=== PATIENT | male | born 1965 | race Caucasian/White ===

== ENCOUNTER 2019-04-23 05:33 | Observation (INO) | payer MEDICARE, MEDICAID, SELFPAY ==
[2019-04-23] VITALS (18 sets, daily range): BP systolic 120–148; BP diastolic 61–97; PULSE 70–122; RESP 12–30; TEMP 36.1–36.8; O2SAT 93–100; BMI 18.8
--- NOTE | ~2019-04-23 | CT_ITS ---
EXAMINATION: CTA chest abdomen pelvis DATE: 04/23/2019 07:48 CONSUMER RELATIONS SPECIALIST INDICATION: Seizure. Chest and abdomen pain. TECHNIQUE: Computed tomographic angiography (CTA) of the chest, abdomen, and pelvis was performed wit hout and with 100 mL Omnipaque-350 intravenous contrast. The dose-length product was 422.96 mGy-cm. M aximum intensity projection 3D-reconstructions of the aorta and other arteries were constructed by leidy cárdenas technologist on a separate workstation. Automated exposure control and iterative reconstruction amadeo hnique were employed. COMPARISON: CT dated 05/22/2017 FINDINGS: CHEST CTA: There is atherosclerosis of the aorta without evidence for aneurysm or dissection. No large central p ulmonary embolism. No significant pleural or pericardial effusion. Heart size normal. No thoracic lym phadenopathy. Severe emphysema. There is right upper lobe scarring. Biapical pleural thickening/scarr ing. No focal airspace consolidation. ABDOMEN AND PELVIS CTA: No evidence for aortic aneurysm or dissection. There is cirrhosis. There is splenomegaly. Status post cholecystectomy. The pancreas, adrenal glands and kidneys are unremarkable. Nonobstructive bowel gas pattern. Colonic diverticulosis without diverticulitis. Limited evaluation for renal stones due to c ontrast administration. No free air or free fluid. Bladder is unremarkable. No lymphadenopathy. No ac [place] osseous abnormality. Moderate spondylosis at L4-5. No osteolytic or osteoblastic lesions. IMPRESSION: 1. No acute abnormality of the chest, abdomen or pelvis. 2: Severe emphysema. 3: Cirrhosis with splenomegaly suggesting portal venous hypertension. Reviewed, dictated and finalized at location A. UMER RELATIONS SPECIALIST
--- NOTE | ~2019-04-23 | CT_ITS ---
EXAMINATION: CT BRAIN W/O DATE: 04/23/2019 06:04 INDICATION: Seizure TECHNIQUE: Computed tomography (CT) of the head was performed without intravenous contrast. The dose- length product was 605.33 mGy-cm. COMPARISON: CT dated 08/13/2003 FINDINGS: Normal brain parenchymal volume for age. Normal beasley-white differentiation. No acute intrac ranial hemorrhage, infarction, mass or mass effect. There are scattered mild periventricular and subc ortical white matter changes, most likely related to small vessel ischemic disease (microangiopathy). No ventriculomegaly or midline shift. Midline sagittal images demonstrate a normal corpus callosum, c raniovertebral junction and sella turcica. Basilar cisterns are patent. There is mucosal thickening of the maxillary and ethmoid sinuses. IMPRESSION: 1. No acute intracranial abnormality. 2: Moderate sinusitis. Reviewed, dictated and finalized at location A. MANUFACTURING LEADER
--- NOTE | ~2019-04-23 | XR_ITS ---
XR chest 1V portable 04/23/2019 06:07 Indication: Sudden onset of chest and abdomen pain Procedure: AP portable chest Comparison: Comparison to multiple prior studies sequentially, with oldest reviewed study dated 07/25. Findings: Heart size is normal. There is retrocardiac opacification, likely atelectasis. Right lung c lear. The lungs are hyperinflated which is consistent with, but not diagnostic of chronic obstructive pulmonary disease. No pleural effusion or pneumothorax. No acute osseous abnormality. Impression: 1: Retrocardiac opacification, likely atelectasis. Reviewed, dictated and finalized at location A. /VAULT SUPERVISOR Impression: 1: Retrocardiac opacification, likely atelectasis.
--- NOTE | 2019-04-23 05:35 | PC.NURSE ---
PT SAT UP SCREAMING. SEIZURE LIKE ACTIVITY FOR [address] COLE NOTIFIED. VRBO ATIVAN 1 MG IVP. GIVEN. AT BEDSIDE. SEIZURE PADS IN PLACE.
--- NOTE | 2019-04-23 05:42 | ECG_ITS ---
Measurements Intervals [place] Rate: 131 P: 80 NH: 144 QRS: 30 QRSD: 98 T: 69 QT: 324 QTc: 480 Interpretive Statements SINUS TACHYCARDIA PEAKED T WAVES- CONSIDER ISCHEMIA OR HYPERKALEMIA NONSPECIFIC ST & T-WAVE ABNORMALITY- INF/LAT LEADS BASELINE ARTIFACT- I, II, III, AVR, AVL, AVF, V3-V6 ABNORMAL ECG Electronically Signed On 04-23-2019 7:17:31 HYDROELECTRIC PLANT TECHNICIAN by Davidson Juarez D.O.
[2019-04-23] MEDS: LORAZEPAM INJ 2 MG/ML VIAL 1 MG IV PUSH (05:50)
[2019-04-23] MEDS: SODIUM CHLORIDE 0.9% IV 1,000 ML 999 ML IV CONT (05:50)
[2019-04-23 06:02] LABS: Glucose Point of Care 160 (65-105)
[2019-04-23] MEDS: levETIRAcetam 1000MG/NACL100ML 1,000 MG/100 ML BAG 400 MG IVPB (06:26)
[2019-04-23 06:28] LABS: Basophils Percent Auto 0.2 % (0.2-1.2); Eosinophils Percent Auto 0.2 % (0-4.4); Hematocrit 42.9 % (42.0-52.0); Hemoglobin 14.5 g/dL (14.0-18.0); Immature Granulocyte Absolute 0.13 K/mm3 (0.00-0.031); Lymphocytes Percent Auto 3.9 % (18.3-44.2); Mean Corpuscular HGB Conc 33.8 g/dl (32-36); Mean Corpuscular Hemoglobin 31.8 pg (26-34); Mean Corpuscular Volume 94.1 fl (80-100); Mean Platelet Volume 11.2 fl (7.4-10.4); Monocytes Absolute Auto 0.6 K/mm3 (0.1-0.6); Monocytes Percent Auto 4.9 % (2.6-8.5); Neutrophils Absolute Auto 11.5 K/mm3 (1.3-6.7); Neutrophils Percent Auto 89.8 % (45.5-73.1); Platelet Count Result 147 k/mm3 (150-375); Red Blood Count 4.56 M/mm3 (4.6-6.20); Red Cell Distribution Width 14.5 % (11.5-14.5); White Blood Count 12.9 K/mm3 (4.5-10.0)
[2019-04-23 06:30] LABS: Alveolar/Arterial O2 Gradient 92.1 mmHg; Base Excess ABG -1.9 mEq/l (+/-2.0); Carboxyhemoglobin 1.9 % THb (0-2.0); Fractional Inspired Oxygen 32 %; HCO3 ABG 23.6 mEq/l (22.0-26.0); Methemoglobin ABG 0.2 %THb (0-1.5); Oxygen Content ABG 18.8 %vol (16.0-22.0); Oxygen Saturation ABG 96.2 % (95.0-100.0); Oxyhemoglobin 93.3 % THb (90.0-100.0); PCO2 ABG 42.7 mmHg (35.0-45.0); PO2 ABG 86.1 mmHg (80.0-100.0); PO2 FiO2 Ratio Arterial Blood 2.69 %; Reduced Hemoglobin 4.6 %THb (0-5.0); Total Hemoglobin 14.3 g/dL (12.0-18.0)
[2019-04-23 06:31] LABS: Device NASAL CANNULA; Modified Allen's Test Pass; Site Drawn LEFT RADIAL
[2019-04-23 06:35] LABS: Add Urine Microscopic? YES; Appearance Urine Clear (Clear); Bilirubin Urine Negative (Negative); Blood Urine 2+ (Negative); Color Urine Yellow (Yellow); Glucose Urine UA 1+ mg/dL (Negative); Ketones Urine Negative (Negative); Leukocyte Esterase Ur Negative LEU/UL (Negative); Nitrate Urine Negative (Negative); Protein Urine 2+ mg/dL (Negative); RBC Urine 0-2 /hpf (0-2); Specific Grav Ur 1.018 (1.001-1.035); Squamous Epithelial Cell Urine Rare /hpf (Few); Urobilinogen Urine Negative mg/dL (<2.0); WBC Urine 0-3 /hpf
[2019-04-23 06:38] LABS: Ethanol < 10 mg/dL (<10); INR 1.1; Partial Thromboplastin Time 29.7 SECONDS (22.3-36.8)
[2019-04-23 06:38] LABS: Ammonia < 9 umol/L (9-30)
[2019-04-23 06:41] LABS: Lactic Acid Reflex 7.2 mmol/L (0.7-2.1)
[2019-04-23 06:46] LABS: Amphetamine Screen Urine Negative (Negative); Barbiturate Screen Urine Negative (Negative); Benzodiazepines Screen Urine Negative (Negative); Cannabinoid Screen Urine Positive (Negative); Cocaine Screen Urine Negative (Negative); Methadone Screen Urine Negative (Negative); Opiate Screen Urine Negative (Negative); Phencyclidine Screen Urine Negative (Negative)
--- NOTE | 2019-04-23 06:48 | ED.SEIZURE ---
HPI - Seizure General Chief Complaint: Seizure Stated Complaint: Seizure Time Seen by Provider: 04/23/19 05:58 Source: family and EMS Mode of arrival: EMS Limitations: clinical condition History of Present Illness HPI Narrative: 53 yo male with h/o hepatitis B, liver Cancer who presents from home via EMS for evaluation of seizure. His states patient woke up screaming and he held his upper abdomen/chest, and he then fell back into bed and had a seizure. On arrival to ER, patient was witnessed to have had tonic clonic seizure lasting 30 seconds. Patient was given ativan 1 mg after the second seizure. His denies previous history of seizure. She states patient has chronic abdominal pain due to his liver issues. She also states for the past month he has been dealing with flu/cold symptoms. He receives treatment for his liver at [facility] with Dr. Mckinley. complaint: seizure Onset (ago): minute(s) Description of Episode: tonic-clonic movement and post-event confusion Duration of episode: 30 -: second(s) Witnessed: Yes - by Bystander Related Data Home Medications Medication Instructions Recorded Confirmed albuterol sulfate [ProAir HFA] 2 puff INHALATION Q6H PRN 04/23/19 04/23/19 bupropion HCl 100 mg PO Q12H 04/23/19 04/23/19 gabapentin 800 mg PO QID 04/23/19 04/23/19 oxycodone 20 mg PO 4-6XD 04/23/19 04/23/19 prednisone 10 mg PO DAILY 04/23/19 04/23/19 tamsulosin 0.4 mg PO DAILY 04/23/19 04/23/19 tenofovir disoproxil fumarate 300 mg PO DAILY 04/23/19 04/23/19 Allergies Allergy/AdvReac Type Severity Reaction Status Date / Time ciprofloxacin Allergy Unknown Unknown Verified 04/23/19 10:44 fentanyl Allergy Unknown Nausea And Verified 04/23/19 07:16 Vomiting hornet venom Allergy Unknown Unknown Verified 04/23/19 07:16 metronidazole Allergy Unknown Nausea And Verified 04/23/19 07:16 Vomiting strawberry Allergy Unknown Unknown Verified 04/23/19 11:00 Review of Systems Review of Systems: ROS unobtainable: unobtainable due to mental status PMFSH Past Medical History Medical History (Updated 04/23/19 @ 09:44 by Roberto Hunt MD) Chronic pain syndrome Cirrhosis COPD (chronic obstructive pulmonary disease) GERD (gastroesophageal reflux disease) Hepatocellular carcinoma History of hepatitis B Hx of peptic ulcer as a child Seizure Surgical History Surgical History (Updated 04/23/19 @ 09:42 by Roberto Hunt MD) History of cholecystectomy History of tibial fracture requiring surgical repair. Social History Social History (Updated 04/23/19 @ 09:37 by Roberto Hunt MD) Social History: Smokes 1/2 ppd since 17yo. He is trying to quit. Lives at home with his and children. He is a full code. Smoking packs per day: 0.5 Smoking cigarettes per day: 10.0 Years smoked: 36 Smoking pack-years: 18.00 Smoking status: Current every day smoker Tobacco type: cigarettes Second hand tobacco smoke exposure: Yes Smoking end date: 03/01/13 Alcohol intake: former Substance use: current Substance use type: marijuana, crack/cocaine and methamphetamine Other substance usage details: has not had alcohol in 16 years/ was never a heavy drinker per Last use: no meth/cocaine in 16 years/uses marijuana currently for pain/appetite Spiritual care concerns: No Agree to blood products: Yes Exam Const: General: alert and ill appearing Nutritional Appearance: thin (cachetic) HENMT: Head: normocephalic and atraumatic Teeth and gingiva: edentulous Throat: posterior oropharynx normal Eyes: Conjunctivae: conjunctivae normal Pupils: Equal, round and reactive pupils present Neck: Neck: normal visual inspection Chest: Chest palpation & inspection: normal inspection of the chest Resp: Effort & Inspection: tachypneic Auscultation: wheezes and diminished lung sounds Cardio: Rate: tachycardic Rhythm: regular rhythm Heart sounds: no murmurs GI:
[2019-04-23 06:54] LABS: Troponin I < 0.012 ng/mL (0.000-0.034)
[2019-04-23 06:55] LABS: Alanine Aminotransferase 29 U/L (4-50); Albumin Level 4.8 g/dL (3.5-5.1); Alkaline Phosphatase 106 U/L (38-126); Aspartate Amino Transferase 32 U/L (17-59); Bilirubin,Total 0.6 mg/dL (0.2-1.3); Blood Urea Nitrogen 10 mg/dL (9-20); Calcium 9.6 mg/dL (8.4-10.2); Carbon Dioxide 20 mmol/L (22-30); Chloride 101 mmol/L (98-107); Creatine Kinase 129 U/L (55-170); Estimated Glomerular Filt Rate > 60; Glucose 161 mg/dL (75-110); Lipase 27 U/L (23-300); Magnesium 2.9 mg/dL (1.6-2.3); Potassium 3.5 mmol/L (3.4-5.0); Sodium 141 mmol/L (137-145)
[2019-04-23] MEDS: LACTATED RINGERS 1,000 ML 999 ML IV CONT (07:14)
--- NOTE | 2019-04-23 08:09 | PC.NURSE ---
Patient taken off oxygen and noted to be 93-95% at this time.
[2019-04-23] MEDS: ONDANSETRON INJ 4 MG/2 ML VIAL IV PUSH ×2 (08:11→12:42)
[2019-04-23] MEDS: ALBUTEROL SULFATE NEB 2.5 MG/0.5 ML INH 5 MG INHALATION (08:32)
[2019-04-23] MEDS: IPRATROPIUM BR 0.02% INH SOLN 0.5 MG/2.5 ML VIAL INHALATION (08:32)
--- NOTE | 2019-04-23 08:41 | PM.IMHP ---
H&P: HPI History of Present Illness Chief complaint: Seizure Narrative: Ronan Baez is a 53 year old male with HCC and Cirrhosis here for new onset seizures. Patient was evaluated emergency room. Patient is somnolent and has difficulty providing history. History is supplemented by the chart and by the patient's who is in the room . Patient was diagnosed with bronchitis about 3 weeks ago and started on 10 day course of Augmentin which he has completed. He was also started on prednisone and is finishing a prednisone taper. About 1 week ago, he was started on bupropion for assistance in tobacco cessation. Patient chronically takes oxycodone 20 mg 6x a day but this was decreased to 5 times a day on April 01. Patient ran out of his oxycodone 1-2 days prior to this admission. Patient was sleeping in another room but around 5:00 a.m. this morning, he walked in to his 's room and fell on the bed. She pulled him up into the bed at which point he sat up at the side of the bed, grab his chest and fell back on the bed with his body twitching and his eyes rolling back in his head. He became stiff with symptoms lasting less than minute. He did have urine incontinence. There is no tongue biting. He is edentulous however. He has no history of seizures. No family history of seizures. His last alcoholic drink was 16 years ago. He does smoke marijuana. He has a history of drug use but nothing recent. Patient was brought to the emergency room for evaluation. Lab values were within normal limits except for a lactic acid of 7.4, anion gap 20, white count of 12.9 and glucose 160. Urine drug screen is positive for cannabis. He did have a seizure in the emergency room. He was given a dose of Keppra and lorazepam. Started on IV fluids. Nebulizer treatment given. He also received Zofran. He is to be admitted for further care. Patient has been feeling hot and cold over the past 2 days. Also been antsy and having anxiety. He has also been episodes of nausea and vomiting last night. Patient denies any chest pain shortness of breath or abdominal pain. He does have a cough related to his recent bronchitis. Unclear if this has improved. 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 Patient is stage IV. He is had 2 rounds of chemotherapy. His last round of chemotherapy ended in October 2018. He also underwent microwave procedure in November 2018. He is currently being evaluated for liver transplant. Review of Systems Review of Systems: All systems reviewed & are unremarkable except as noted in HPI and below PMFSH Past Medical History Medical History (Updated 04/24/19 @ 07:24 by Roberto Hunt MD) Chronic pain syndrome Cirrhosis COPD (chronic obstructive pulmonary disease) GERD (gastroesophageal reflux disease) Hepatocellular carcinoma History of hepatitis B Hx of peptic ulcer as a child Seizure Surgical History Surgical History (Updated 04/23/19 @ 09:42 by Roberto Hunt MD) History of cholecystectomy History of tibial fracture requiring surgical repair. Social History Social History (Updated 04/23/19 @ 09:37 by Roberto uHnt MD) Social History: Smokes 1/2 ppd since 17yo. He is trying to quit. Lives at home with his and children. He is a full code. Smoking packs per day: 0.5 Smoking cigarettes per day: 10.0 Years smoked: 36 Smoking pack-years: 18.00 Smoking status: Current every day smoker Tobacco type: cigarettes Second hand tobacco smoke exposure: Yes Smoking end date: 03/01/13 Alcohol intake: former Substance use: current Substance use type: marijuana, crack/cocaine and methamphetamine Other substance usage details: has not had alcohol in 16 years/ was never a heavy drinker per Last use: no meth/cocaine in 16 years/uses marijuana currently for pain/appetite Spiritual care concerns: No Agree to blood products
[2019-04-23 09:24] LABS: Reflex Lactic Acid Yes or No Add Lactic
--- NOTE | 2019-04-23 09:37 | ADMGEN ---
This patient, Ronan Baez, was admitted to -. Patient/family oriented to hospital policies and general routines including ID bracelet, bed and alarms, visiting hours, pain management, procedures, bathroom and other care routines, personal items, smoking policy, room service/diet, and visiting hours. Valuables list has been completed. Information on how to activate the Rapid Response Team has been discussed. Patient/Family are encouraged to report perceived risks to care and to ask questions if they do not understand what they are told or what they should do.
[2019-04-23 10:20] LABS: Lactic Acid 0.7 mmol/L (0.7-2.1)
[2019-04-23] MEDS: MORPHINE SULFATE 2 MG/ML INJ 1 MG IV PUSH (13:18)
--- NOTE | 2019-04-23 15:59 | CONS_ITS ---
DATE OF CONSULTATION: HISTORY: This 53 years old right-handed male has been admitted to [facility] through the emergency room for the complaints of the seizure. He was initially evaluated in the emergency room where he was notedly somnolent and had difficulties in providing the history. Further information was obtained from the chart. The patient carries the diagnoses of 1. Cirrhosis of the liver. 2. COPD. 3. GERD. 4. Hepatocellular carcinoma. 5. Hepatitis B. 6. Peptic ulcer disease as a child. 7. Chronic pain syndrome. Reportedly, he was diagnosed with bronchitis about 3 weeks ago and started on 10-day course of Augmentin, which he completed and at present, he has finished his prednisone and finishing the prednisone tapering. About a week ago, he was started on bupropion for the tobacco cessation, though chronically, he takes oxycodone 20 mg x6 per day, which was recently decreased to 5 times a day on April 01. He ran out of his oxycodone 1 to 2 days prior to admission and was sleeping in another room, but around 5:00 a.m. in the morning, he walked to his 's room and fell on the bed. She pulled him up to the bed at that time, he set up at the side of bed, grabbed his chest and fell backward on the bed with body twitching and his eyes rolling back in his head, became stiff, the whole episode lasted for less than a minute, became incontinent of urine, there was no tongue biting, but he had no history of seizures in the past. His last alcoholic drink was 16 years ago. He does smoke marijuana and has a history of drug use, but nothing recent. In the emergency room, his lactic acid was 7.4 with anion gap of 20, white count of 12.9, and glucose 160. Urine positive for cannabis. He did have a seizure in the emergency room as well when he was given Keppra and lorazepam and started on intravenous fluid. He also received nebulizing treatments, Zofran, and was admitted for the further care. The patient has been having nausea, anxiety intermittently, his hepatitis B is at present dormant, hepatocellular carcinoma, cirrhosis being treated. He had 2 rounds of chemotherapy, last 1 in October of 2018. He has also undergone microwave procedure in November 2018, and currently is being evaluated for the liver transplant. MEDICAL HISTORY: As mentioned above, he has multiple problem, particularly chronic pain syndrome, cirrhosis, COPD, GERD, hepatocellular carcinoma, hepatitis B, peptic ulcer as a child, and seizure now in addition to a history of cholecystectomy and tibial fracture requiring surgical repair. FAMILY HISTORY: Positive for the stroke, hypertension, and coronary artery disease. The patient himself smokes half a pack of cigarettes per since 17 years of age, though he is trying to quit. He lives at home with his and children and carries the full code status. MEDICATIONS: At the time of admission to the hospital, he was taking 1. Bupropion. 2. Gabapentin. 3. Oxycodone. 4. Prednisone. 5. Tamsulosin. 6. Tenofovir disoproxil fumarate. ALLERGIES: HE IS REPORTEDLY ALLERGIC TO CIPRO, FENTANYL, HORNET VENOM, AND METRONIDAZOLE. PHYSICAL EXAMINATION: VITAL SIGNS: Evaluation documented him to be afebrile, pulse 97, respiration 20, blood pressure 141/86, and pulse ox 96. HEENT: Head normocephalic with no cranial bruit. Ear, nose, throat examination, normal. NECK: Supple with no cervical bruit. No thyromegaly. No lymphadenopathy. Extremely sick looking and cachetic. LUNGS: Clear to auscultation. ABDOMEN: Soft. Normal bowel sound. NEUROLOGICAL: He is awake, alert. Pupils round and regular. Ortiz of vision full. Extraocular movements full. Face symmetrical. Tongue midline. Motor examination revealed him to have sluggish reflexes. Downgoing plantar res
[2019-04-23] MEDS: GABAPENTIN 400 MG CAPSULE 800 MG PO ×2 (17:55→21:25)
[2019-04-23] MEDS: predniSONE 10 MG TABLET PO (17:55)
--- NOTE | 2019-04-23 18:49 | PC.NURSE ---
Called patient's Heather to request that she bring in Tenofovir from home. She states she will pick it up at their pharmacy and bring it in to the hospital tomorrow.
[2019-04-23] MEDS: levETIRAcetam 500MG/NACL 100ML 500 MG/100 ML BAG 400 MG IVPB (21:25)
[2019-04-24] VITALS (8 sets, daily range): BP systolic 134–154; BP diastolic 60–81; PULSE 75–99; RESP 16–24; TEMP 36.7–37; O2SAT 91–93; BMI 18.6
[2019-04-24] MEDS: ONDANSETRON INJ 4 MG/2 ML VIAL IV PUSH (07:39)
[2019-04-24] MEDS: ALBUTEROL SULFATE NEB 2.5 MG/0.5 ML INH 5 MG INHALATION (07:56)
[2019-04-24] MEDS: GABAPENTIN 400 MG CAPSULE 800 MG PO (08:07)
[2019-04-24] MEDS: levETIRAcetam 500MG/NACL 100ML 500 MG/100 ML BAG 400 MG IVPB (08:08)
[2019-04-24] MEDS: predniSONE 10 MG TABLET PO (09:24)
--- NOTE | 2019-04-24 09:30 | WPDNEUROPN ---
Progress Note: A&P Assessment and Plan (1) Narcotic withdrawal epilepsy: Code(s): F11.23 - Opioid dependence with withdrawal; G40.909 - Epilepsy, unspecified, not intractable, without status epilepticus Status: Acute (2) Chronic pain syndrome: Code(s): G89.4 - Chronic pain syndrome Status: Acute (3) History of hepatitis B: Code(s): Z86.19 - Personal history of other infectious and parasitic diseases Status: Acute (4) Seizure: Code(s): R56.9 - Unspecified convulsions Status: Acute (5) Hepatocellular carcinoma: Code(s): C22.0 - Liver cell carcinoma Status: Acute (6) COPD (chronic obstructive pulmonary disease): Code(s): J44.9 - Chronic obstructive pulmonary disease, unspecified Status: Acute (7) Cirrhosis: Code(s): K74.60 - Unspecified cirrhosis of liver Status: Acute Additional Plan stable Review of Systems Review of Systems: All systems reviewed & are unremarkable except as noted in HPI and below Exam Const: General: cooperative and no acute distress Neck: Neck: full ROM Resp: Effort & Inspection: able to speak in complete sentences Auscultation: clear to auscultation bilaterally Cardio: Rate: regular rate Rhythm: regular rhythm Neuro: General: oriented to person and patient oriented x3 Cranial nerves: Yes Equal, round and reactive pupils present Gait exam (Neuro): Normal gait present Psych: Appearance: grossly normal Objective Data Vital Signs Vital Signs: Vital Signs - 24 hr 04/23/19 09:54 04/23/19 12:00 04/23/19 14:00 Temperature 36.3 C L 36.1 C L Pulse Rate 87 82 83 Respiratory Rate 26 H 18 Blood Pressure 120/61 136/64 Pulse Oximetry 95 97 04/23/19 16:00 04/23/19 18:00 04/23/19 20:00 Temperature 36.2 C L Pulse Rate 84 70 82 Respiratory Rate 12 Blood Pressure 133/77 Pulse Oximetry 95 04/23/19 21:51 04/24/19 00:00 04/24/19 01:51 Temperature 36.4 C L 36.7 C Pulse Rate 84 75 81 Respiratory Rate 18 16 Blood Pressure 128/64 144/81 H Pulse Oximetry 93 93 04/24/19 04:00 04/24/19 05:59 04/24/19 08:00 Temperature 36.7 C Pulse Rate 94 90 99 Respiratory Rate 20 24 H Blood Pressure 154/60 H Pulse Oximetry 92 04/24/19 08:04 04/24/19 08:07 Temperature Pulse Rate 99 Respiratory Rate 24 H Blood Pressure Pulse Oximetry 91 Intake/Output Intake/Output: Intake & Output 04/21/19 04/22/19 04/23/19 04/24/19 23:59 23:59 23:59 23:59 Intake Total 2440 450 Output Total 800 700 Balance 1640 -250 Meds/Results Medications: Active Medications Generic Name Dose Route Start Last Admin Trade Name Freq PRN Reason Stop Dose Admin Albuterol 5 mg 04/23/19 09:54 04/24/19 07:56 Albuterol Sulf Neb 2.5mg/0.5ml INHALATION 5 mg Q6HRT PRN Administration Shortness Of Breath Albuterol 2 puff 04/23/19 16:03 Proventil Hfa INHALATION Q6H PRN Dyspnea Gabapentin 800 mg 04/23/19 17:00 04/24/19 08:07 Neurontin PO 800 mg QID JOEL Administration Levetiracetam 500 mg in 100 mls @ 400 mls/hr 04/23/19 21:00 04/24/19 08:23 Keppra Iv IVPB Infused Q12HR JOEL Infusion Non-Formulary Medication 300 mg 04/24/19 09:00 Tenofovir Disoproxil Fumarate PO 05/24/19 09:01 DAILY [facility] Ondansetron HCl 4 mg 04/23/19 08:42 04/24/19 07:39 Zofran Inj IV PUSH 4 mg Q4H PRN Administration Nausea Oxycodone HCl 20 mg 04/23/19 17:00 04/24/19 08:07 Roxicodone Ir Tablet PO 20 mg QID [facility] Administration Prednisone 10 mg 04/23/19 16:10 04/24/19 09:24 Prednisone PO 10 mg DAILY [facility] Administration Tamsulosin HCl 0.4 mg 04/24/19 16:10 Flomax PO DAILY [facility] Radiology Results: ITS Impressions Chest X-Ray 04/23/19 07:45 Impression: 1: Retrocardiac opacification, likely atelectasis. Chest/Abdomen/Pelvis CTA 04/23/19 07:48 IMPRESSION: 1. No acute abnormality of the chest, abdo
--- NOTE | 2019-04-24 11:00 | PHAR ---
The patient's home med of Tenofovir Disoproxil Fumarate 300 MG has been verified.
--- NOTE | 2019-04-24 13:03 | PM.DS ---
DS: Diagnosis Admitting Diagnosis Admitting Diagnosis: Opioid dependence with withdrawal Discharge Diagnosis (1) Narcotic withdrawal epilepsy: Code(s): F11.23 - Opioid dependence with withdrawal; G40.909 - Epilepsy, unspecified, not intractable, without status epilepticus Status: Acute (2) Seizure: Code(s): R56.9 - Unspecified convulsions Status: Acute (3) Hepatocellular carcinoma: Code(s): C22.0 - Liver cell carcinoma Status: Acute (4) COPD (chronic obstructive pulmonary disease): Code(s): J44.9 - Chronic obstructive pulmonary disease, unspecified Status: Acute (5) Cirrhosis: Code(s): K74.60 - Unspecified cirrhosis of liver Status: Acute (6) History of hepatitis B: Code(s): Z86.19 - Personal history of other infectious and parasitic diseases Status: Acute (7) Chronic pain syndrome: Code(s): G89.4 - Chronic pain syndrome Status: Acute DS: Summary Hospital Course Reason for hospitalization: 53yo male here for new onset seizures. Pleae see H&P for details. Hospital Course: Patient has seizure at home. He was brought to the emergency room for evaluation. Lab values were within normal limits except for a lactic acid of 7.4, anion gap 20, white count of 12.9 and glucose 160. Urine drug screen is positive for cannabis. He did have a seizure in the emergency room. He was given a dose of Keppra and lorazepam. Started on IV fluids. Nebulizer treatment given. He also received Zofran. Patient was admitted to medical floor. Seizure precautions started. Patient most likely is having some opiate withdrawal symptoms so we resumed his oxycodone. Neurology consulted. Continued Keppra. Unable to get EEG and neurology did not feel this was necessary. Patient refused brain MRI. We resumed a majority of his home medications. Lab values show the patient's liver disease is well compensated with good synthetic function. No evidence of fluid overload. He overall did well and was discharged home on 04/24/19 Status at Discharge Functional status at discharge: independent ambulation Overall status at discharge: patient is back to baseline Time Spent with Patient Time attestation: Total time spent providing and/or coordinating discharge services:35 minutes Time spent: Greater than 30 minutes Specific discharge activities: Discussed with neurology and patient with family present (with his permission) Exam Narrative: Exam Narrative: Gen - NARD sitting up in chair Chest - CTA bilat, nml RR CV - RRR S1/S2 Abd - soft, NT,ND, +BS Ext - No pedal edema Neuro - awake and alert, nonfocal Psych - nml mood and affect Skin - Warm and dry Discharge Plan Discharge Attending physician on discharge: Roberto Hunt Consulting providers: Randal Esteves Discharging Clinician: Roberto Hunt Anticipated Discharge Date/Time: 04/24/19 13:08 Patient Disposition: Home, Self-Care Activity: no driving Diet: regular Discharge Instructions: NO DRIVING - until seen by your doctor. Patient Instructions: How to Stop Smoking (DC), New-Onset Seizure in Adults (DC), Antibiotic Form Stand Alone Forms: General Discharge Information Follow-up/Referrals: Randal Esteves MD [Physician] - 2 Weeks Shankar,Jazmin Turpin MD [Primary Care Provider] - 1 Week Discharge Medications: Continued prednisone 10 mg tablet 10 mg PO DAILY RF: 0 tamsulosin 0.4 mg capsule 0.4 mg PO DAILY RF: 0 gabapentin 800 mg tablet 800 mg PO QID RF: 0 tenofovir disoproxil fumarate 300 mg tablet 300 mg PO DAILY RF: 0 albuterol sulfate [ProAir HFA] 90 mcg/actuation HFA aerosol inhaler 2 puff INHALATION Q6H PRN (Reason: Dyspnea) RF: 0 Changed oxycodone 20 mg tablet 20 mg PO Q6H Qty: 40 RF: 0 Discontinued bupropion HCl 100 mg tablet sustained-release 12 hr 100 mg PO Q12H RF: 0 Date of admission: 04/23/19 08:42 Primary Care Pro
== END 2019-04-24 13:40 | disposition home or self-care (01) ==
LOC: ANHED 09:32 → ANH2MED 09:37
PROVIDERS: Emergency Medicine; Admitting Provider Internal Medicine; Emergency Provider General Practice; PCP Family Medicine; Visit Provider Internal Medicine
DX: F11.23 Opioid dependence with withdrawal (principal); G40.509 Epileptic seizures related to external causes, not intractable, without status epilepticus; T40.2X5A Adverse effect of other opioids, initial encounter; C22.0 Liver cell carcinoma; J43.9 Emphysema, unspecified; G89.4 Chronic pain syndrome; K21.9 Gastro-esophageal reflux disease without esophagitis; F17.210 Nicotine dependence, cigarettes, uncomplicated; K74.60 Unspecified cirrhosis of liver; Z79.899 Other long term (current) drug therapy; Z86.19 Personal history of other infectious and parasitic diseases; Z87.11 Personal history of peptic ulcer disease
CPT/HCPCS: 36415; 36600; 70450; 71045; 71275; 74174; 80053; 80307; 81001; 82140; 82375; 82550; 82805; 82948; 83050; 83605; 83690; 83735; 84484; 85025; 85610; 85730; 93005; 94640; 96361; 96365; 96375; 96376; 99285; A9270; G0378; J1953; J2060; J2270; J2405; J2785; J7030; J7120; J7512; Q9967

== ENCOUNTER 2020-01-17 06:29 | Emergency (ER) | payer MEDICARE, MEDICAID, SELFPAY ==
--- NOTE | ~2020-01-17 | CT_ITS ---
EXAMINATION: CT brain wo con DATE: 01/17/2020 07:46 INDICATION: Seizure. TECHNIQUE: Computed tomography (CT) of the head was performed without intravenous contrast. The mA wa s adjusted according to patient size. Iterative reconstruction technique was employed. The dose-lengt h product was 605.33 mGy-cm. COMPARISON: Head CT 04/23/2019 FINDINGS: There are scattered areas of low attenuation in the cerebral white matter. There is no intr acranial hemorrhage, acute infarction, or abnormal intracranial mass lesion. The ventricles are meka l in size. There is mild mucosal thickening in the ethmoid sinuses. The mastoid air cells are normal. The orbits are normal. IMPRESSION: 1. Stable mild nonspecific cerebral white matter disease, which likely represents chronic small vesse l ischemic disease. Reviewed, dictated and finalized at location A. GER WOUND IMPRESSION: 1. Stable mild nonspecific cerebral white matter disease, which likely represen ts chronic small vessel ischemic disease.
--- NOTE | ~2020-01-17 | XR_ITS ---
EXAMINATION: XR chest 2V DATE: 01/17/2020 07:56 INDICATION: Seizure. TECHNIQUE: Frontal and lateral views of the chest were obtained. COMPARISON: Chest single view 04/23/2019, chest CT 04/23/2019 FINDINGS: The lungs are hyperexpanded with lucencies in the upper lungs, consistent with emphysema. A gain seen is mild scarring in right upper lobe. No pleural effusion or pneumothorax. The heart size i s normal. IMPRESSION: 1. Emphysema. Reviewed, dictated and finalized at location A. OYEE REPRESENTATIVE IMPRESSION: 1. Emphysema.
[2020-01-17 06:29] VITALS: BP 115/67; PULSE 103; RESP 18; TEMP 36.6; O2SAT 99
--- NOTE | 2020-01-17 06:38 | ECG_ITS ---
Measurements Intervals [place] Rate: 91 P: [place]: 0 QRS: 28 QRSD: 104 T: 47 QT: 362 QTc: 447 Interpretive Statements SINUS RHYTHM BASELINE WANDER- V3-V6 NORMAL ECG Electronically Signed On 01-17-2020 8:46:10 POISER BALANCE by Davidson Juarez D.O.
[2020-01-17 06:50] LABS: Glucose Point of Care 135 (65-105)
[2020-01-17] MEDS: SODIUM CHLORIDE 0.9% IV 1,000 ML 999 ML IV CONT (06:55)
[2020-01-17 07:00] VITALS: BP 112/66; PULSE 94; RESP 27; O2SAT 100
[2020-01-17 07:02] LABS: Basophils Percent Auto 0.4 % (0.2-1.2); Eosinophils Absolute Auto 0.1 K/mm3 (0-0.3); Eosinophils Percent Auto 1.5 % (0-4.4); Hemoglobin 13.8 g/dL (14.0-18.0); Immature Granulocyte Absolute 0.03 K/mm3 (0.00-0.031); Immature Granulocyte Percent A 0.3 % (0-0.5); Lymphocytes Absolute Auto 1.87 K/mm3 (0.9-3.2); Lymphocytes Percent Auto 19.8 % (18.3-44.2); Mean Corpuscular HGB Conc 33.7 g/dl (32-36); Mean Corpuscular Hemoglobin 31.2 pg (26-34); Mean Corpuscular Volume 92.8 fl (80-100); Mean Platelet Volume 12.9 fl (7.4-10.4); Monocytes Absolute Auto 0.7 K/mm3 (0.1-0.6); Monocytes Percent Auto 7.1 % (2.6-8.5); Neutrophils Absolute Auto 6.7 K/mm3 (1.3-6.7); Neutrophils Percent Auto 70.9 % (45.5-73.1); Platelet Count Result 108 k/mm3 (150-375); Red Blood Count 4.42 M/mm3 (4.6-6.20); Red Cell Distribution Width 14.7 % (11.5-14.5); White Blood Count 9.4 K/mm3 (4.5-10.0)
[2020-01-17 07:15] LABS: Prothrombin Time 14.2 Seconds (11.1-14.7)
[2020-01-17 07:17] LABS: Partial Thromboplastin Time 25.2 SECONDS (22.3-36.8)
[2020-01-17 07:22] LABS: Lactic Acid Reflex 5.2 mmol/L (0.7-2.1)
[2020-01-17 07:30] VITALS: BP 135/76; PULSE 90; RESP 22; O2SAT 100
[2020-01-17 07:57] LABS: Add Urine Microscopic? YES; Appearance Urine Cloudy (Clear); Bacteria Urine Trace /hpf; Bilirubin Urine Negative (Negative); Blood Urine Negative (Negative); Color Urine Yellow (Yellow); Glucose Urine UA Negative (Negative); Hyaline Casts Urine 50+ /lpf; Ketones Urine Negative (Negative); Leukocyte Esterase Ur Negative LEU/UL (Negative); Mucus Urine Rare /lpf; Nitrate Urine Negative (Negative); Protein Urine 2+ mg/dL (Negative); Specific Grav Ur 1.019 (1.001-1.035); Squamous Epithelial Cell Urine Occasional /hpf (Few); Transitional Epi Cells Urine Rare /hpf (None Seen); Urobilinogen Urine Negative mg/dL (<2.0)
[2020-01-17 08:08] LABS: Ammonia 10 umol/L (9-30)
[2020-01-17 08:09] LABS: Ethanol < 10 mg/dL (<10)
[2020-01-17 08:11] LABS: Alanine Aminotransferase 32 U/L (4-50); Albumin Level 4.1 g/dL (3.5-5.1); Alkaline Phosphatase 113 U/L (38-126); Anion Gap 11 mmol/L (8-16); Aspartate Amino Transferase 39 U/L (17-59); Bilirubin,Total 0.7 mg/dL (0.2-1.3); Blood Urea Nitrogen 14 mg/dL (9-20); CRP < 0.5 mg/dL (<1.0); Calcium 9.4 mg/dL (8.4-10.2); Carbon Dioxide 20 mmol/L (22-30); Chloride 108 mmol/L (98-107); Estimated CRCL calculation 64 ml/min; Estimated Glomerular Filt Rate > 60; Glucose 140 mg/dL (75-110); Potassium 3.7 mmol/L (3.4-5.0); Sodium 139 mmol/L (137-145)
[2020-01-17 08:21] LABS: Troponin I < 0.012 ng/mL (0.000-0.034)
[2020-01-17 08:24] LABS: Alveolar/Arterial O2 Gradient 39.9 mmHg; Base Excess ABG -1.6 mEq/l (+/-2.0); Device ROOM AIR; Fractional Inspired Oxygen 21 %; HCO3 ABG 23.1 mEq/l (22.0-26.0); Modified Allen's Test Pass; Oxygen Content ABG 16.6 %vol (16.0-22.0); Oxygen Saturation ABG 92.3 % (95.0-100.0); Oxyhemoglobin 88.8 % THb (90.0-100.0); PCO2 ABG 38.6 mmHg (35.0-45.0); PO2 ABG 63.6 mmHg (80.0-100.0); PO2 FiO2 Ratio Arterial Blood 3.03 %; Site Drawn LEFT RADIAL; Total Hemoglobin 13.3 g/dL (12.0-18.0); pH ABG 7.394 (7.350-7.450)
[2020-01-17 09:07] LABS: Barbiturate Screen Urine Negative (Negative); Benzodiazepines Screen Urine Negative (Negative)
[2020-01-17 09:10] LABS: Cannabinoid Screen Urine Positive (Negative); Cocaine Screen Urine Negative (Negative); Methadone Screen Urine Negative (Negative); Opiate Screen Urine Positive (Negative); Phencyclidine Screen Urine Negative (Negative)
[2020-01-17 09:26] LABS: Amphetamine Screen Urine Positive (Negative)
--- NOTE | 2020-01-17 09:45 | ED.SEIZURE ---
HPI - Seizure General Chief Complaint: Seizure Stated Complaint: altered mental status Time Seen by Provider: 01/17/20 07:03 Source: RN notes reviewed History of Present Illness HPI Narrative: Patient presents emergency department from home via EMS for possible seizure. The patient has history is per the patient as well as the patient's is present. The patient was sitting at home in a chair when he became stiff for approximately 30 minutes and then following this became very sleepy when EMS was initially called it was for an unresponsive patient when they arrived they found the patient snoring in his chair and was awoken easily with verbal stimuli but was confused. Currently the patient is awake and alert x2 he is able to give some history but does not call the event. Patient does have a similar episode in April of this year per family patient denies any fevers or chills chest pain shortness of breath abdominal pain nausea vomiting or any other symptoms. States he is on the hepatobiliary service at [facility] secondary to hepatocellular carcinoma and hepatitis B Seizure History: Yes (new onset 04/2019) Related Data Home Medications Medication Instructions Recorded Confirmed albuterol sulfate 01/17/20 albuterol sulfate INHALATION 01/17/20 gabapentin 01/17/20 omeprazole 01/17/20 tamsulosin mg PO 01/17/20 tenofovir disoproxil fumarate 01/17/20 Allergies Allergy/AdvReac Type Severity Reaction Status Date / Time ciprofloxacin Allergy Unknown Unknown Verified 01/17/20 09:21 fentanyl Allergy Unknown Nausea And Verified 01/17/20 09:21 Vomiting hornet venom Allergy Unknown Unknown Verified 01/17/20 09:21 metronidazole Allergy Unknown Nausea And Verified 01/17/20 09:21 Vomiting strawberry Allergy Unknown Unknown Verified 01/17/20 09:21 Review of Systems Review of Systems: Narrative: Gen.: Denies fevers or chills Eyes: Denies eye pain or visual change ENT: Denies congestion Respiratory: Denies shortness of breath or cough CV: Denies chest pain or palpitations GI: Denies abdominal pain nausea, emesis or diarrhea denies burning, urgency, frequency or hematuria Musculoskeletal: Denies back pain or muscle pain Neuro: See HPI Skin: Denies rash Except as documented, all other systems reviewed and negative PMFSH Past Medical History Medical History Chronic pain syndrome Cirrhosis COPD (chronic obstructive pulmonary disease) GERD (gastroesophageal reflux disease) Hepatocellular carcinoma History of hepatitis B Hx of peptic ulcer as a child Seizure Surgical History Surgical History (Updated 04/23/19 @ 09:42 by Roberto Hunt MD) History of cholecystectomy History of tibial fracture requiring surgical repair. Family History Family History Father Hypertension Cerebrovascular accident Family history of coronary artery disease Sibling Hypertension Social History Social History Social History: Smokes 1/2 ppd since 17yo. He is trying to quit. Lives at home with his and children. He is a full code. Smoking packs per day: 0.5 Smoking cigarettes per day: 10.0 Years smoked: 36 Smoking pack-years: 18.00 Smoking status: Current every day smoker Tobacco type: cigarettes Second hand tobacco smoke exposure: Yes Smoking end date: 03/01/13 Alcohol intake: former Substance use: current Substance use type: marijuana, crack/cocaine and methamphetamine Other substance usage details: has not had alcohol in 16 years/ was never a heavy drinker per Last use: no meth/cocaine in 16 years/uses marijuana currently for pain/appetite Gender identity (if verbalized by the patient): Male Spiritual care concerns: No Agree to blood products: Yes Exam Narrative: Exam Narrative: APPEARANCE:
[2020-01-17 09:59] LABS: Reflex Lactic Acid Yes or No Add Lactic
[2020-01-17] MEDS: levETIRAcetam 500 MG TABLET PO (10:12)
[2020-01-17 10:20] VITALS: BP 130/82; PULSE 83; RESP 24; O2SAT 98
[2020-01-17 10:29] LABS: Lactic Acid 0.8 mmol/L (0.7-2.1)
== END 2020-01-17 10:20 | disposition home or self-care (01) ==
PROVIDERS: Emergency Medicine; Emergency Provider Emergency Medicine; PCP Family Medicine
DX: G40.909 Epilepsy, unspecified, not intractable, without status epilepticus (principal); F17.210 Nicotine dependence, cigarettes, uncomplicated; J44.9 Chronic obstructive pulmonary disease, unspecified; K21.9 Gastro-esophageal reflux disease without esophagitis
CPT/HCPCS: 36415; 36600; 70450; 71046; 80053; 80307; 81001; 82140; 82805; 82948; 83605; 84443; 84484; 85025; 85610; 85730; 86140; 93005; 96360; 99284; A9270; J7030

== ENCOUNTER 2020-02-16 13:45 | Inpatient (IN) | payer MEDICARE, MEDICAID, SELFPAY ==
[2020-02-16] VITALS (42 sets, daily range): BP systolic 91–148; BP diastolic 50–90; PULSE 75–130; RESP 16–82; TEMP 36.4–37.1; O2SAT 79–100; BMI 17.2
--- NOTE | ~2020-02-16 | CT_ITS ---
EXAMINATION: CT brain wo con DATE: 02/16/2020 16:27 INDICATION: Recurrent seizures. TECHNIQUE: Computed tomography (CT) of the head was performed without intravenous contrast. The dose- length product was 605.33 mGy-cm. Automated exposure control and iterative reconstruction technique w ere employed. COMPARISON: CT dated 01/17/2020 FINDINGS: Mild generalized atrophy. There are scattered mild periventricular and subcortical white ma tter changes, most likely related to small vessel ischemic disease (microangiopathy). No ventriculome jefferson or midline shift. Basilar cisterns are patent. There is intracranial atherosclerosis. Paranasal sinuses and mastoids are unremarkable. No acute intracranial hemorrhage, infarction, mass or mass eff ect. IMPRESSION: 1. No acute intracranial abnormality. Reviewed, dictated and finalized at location A. INVESTIGATOR
--- NOTE | ~2020-02-16 | XR_ITS ---
EXAMINATION: XR chest 2V 02/16/2020 16:41 INDICATION: Seizure. History of COPD. Transient alteration of awareness. PROCEDURE: AP portable chest COMPARISON: Comparison to multiple prior studies sequentially, with oldest reviewed study dated 05/24. FINDINGS: The lungs are clear. The cardiomediastinal silhouette is within normal limits. There are no pleural effusions. There is no pneumothorax suspected. The lungs are hyperinflated which is cons istent with, but not diagnostic of chronic obstructive pulmonary disease. IMPRESSION: 1: NO ACUTE CARDIOPULMONARY DISEASE. Reviewed, dictated and finalized at location A. SCOPE OPERATOR
--- NOTE | 2020-02-16 13:53 | ED.SEIZURE ---
HPI - Seizure General Chief Complaint: Seizure Stated Complaint: Abd pain/SZ Time Seen by Provider: 02/16/20 13:53 Source: EMS Mode of arrival: EMS Limitations: clinical condition History of Present Illness HPI Narrative: Patient is a 54-year-old male with a history of previous alcohol abuse, cirrhosis, seizure disorder, on Keppra, who presents for evaluation of seizure at home. Patient had a witnessed seizure per family where he was shaking, unconscious over 45 seconds. Family called EMS, and EMS was transported to this facility for assessment. Glucose in route was 84. Patient was quite combative in route for EMS. The time of arrival to our facility, patient is combative, attempting to rip out his IV, attempting to strike out at medical staff. Patient was given IV Ativan, had to be restrained for patient safety. Patient is unable to provide any verbal response or converse at this point. He is hyperventilating. Related Data Home Medications Medication Instructions Recorded Confirmed albuterol sulfate 1.25 mg INHALATION Q4H 02/16/20 calcium carbonate-vitamin D3 cap PO 02/16/20 [Calcium 600 + D(3)] gabapentin 800 mg PO DAILY 02/16/20 levetiracetam [Keppra] 500 mg PO BID 02/16/20 yigiombjqtkh-dpj-qnoo-FA-vit K tablet PO 02/16/20 [Adults Multivitamin] oxycodone 20 mg PO Q4H PRN 02/16/20 tamsulosin [Flomax] 0.4 mg PO HS 02/16/20 tenofovir disoproxil fumarate 300 mg PO DAILY 02/16/20 Allergies Allergy/AdvReac Type Severity Reaction Status Date / Time ciprofloxacin Allergy Unknown Verified 02/16/20 14:43 fentanyl Allergy Unknown Verified 02/16/20 14:43 Review of Systems Review of Systems: ROS unobtainable: Yes unobtainable due to mental status PMFSH Past Medical History Medical History (Updated 02/16/20 @ 18:24 by Yandy Short MD) Hepatic encephalopathy Hepatocellular carcinoma Seizure Social History Social History (Updated 02/16/20 @ 16:03 by Yandy Short MD) Smoking status: Current every day smoker Tobacco type: cigarettes Alcohol intake: current Substance use: unknown Living arrangements: with family Gender identity (if verbalized by the patient): Male Exam Narrative: Exam Narrative: GENERAL: Awake, alert, diaphoretic, thin HEAD: Normocephalic, atraumatic. EYES: PERRLA and EOMI. ENT: Nares clear, no rhinorrhea or epistaxis. Mucous membranes moist. NECK: Supple. CHEST: No respiratory distress, breathing even and non labored, lungs are clear bilaterally HEART: Regular rate, sinus rhythm ABDOMEN:Non distended, non tender EXTREMITIES: Normal range of motion. No edema. SKIN: Warm, dry, no rash. NEURO:No focal deficits. Moving all extremities spontaneously. Will not reliably follow commands. Alert, unable to assess orientation. Course Vital Signs Vital signs: Vital Signs Temperature 37.1 C 02/16/20 13:41 Pulse Rate 88 02/16/20 13:41 Respiratory Rate 18 02/16/20 13:41 Blood Pressure 117/71 02/16/20 13:41 Pulse Oximetry 98 02/16/20 13:41 Temperature 37.1 C 02/16/20 13:41 Pulse Rate 79 02/16/20 17:30 Respiratory Rate 17 02/16/20 17:30 Blood Pressure 91/54 L 02/16/20 17:16 Pulse Oximetry 100 02/16/20 17:01 MDM - Seizure MDM Narrative Medical decision making narrative: Patient presented to the emergency department for evaluation of seizure-like activity. At the time of assessment, patient is combative, altered. This is either due to postictal state or possible hepatic encephalopathy versus infection. IV access obtained and labs were drawn. Patient had to be sedated and restrained in order to protect himself and protect staff. Patient was given Ativan to abort a recurrent seizure that occurred in the ER and was associated with urinary continence without hypoxia or tongue biting. Laboratory results show no leukocytosis. No severe electrolyte derangement. Patient with critically elevated ammonia level for which she was able to t
--- NOTE | 2020-02-16 13:59 | PC.NURSE ---
1359 PT NOTED TO BE HAVING SEIZURE ACTIVITY, ERP GREGORY CALLED TO ROOM2, SEE SEIZURE CHARTING.
--- NOTE | 2020-02-16 14:00 | PC.NURSE ---
Addendum entered by Ez Vann RN 02/16/20 15:01: 1405 VERBAL ORDER FOR 25 MG BENADRYL IVP STAT 1410 25 MG GIVEN IVP PER VERBAL ORDER. Original Note: 1400 - PT AGITATED AND FIGHTING STAFF AT THIS TIME, GRABBED ETELVINA NICOLE BY THE BREAST, YELLING INCOHERENTLY, ETELVINA DONOHUE, HERNANDEZ, BONNIE, RONY AND MYSELF WITH TECH ANTHOYN AND [place] PHYSICALLY RESTRAINING PT ON STRETCHER, PT STILL FIGHTING STAFF, LETY JENKINS CALLED TO BEDSIDE. 1405 2MG ATIVAN IVP GIVEN AT THIS TIME PT STILL COMBATIVE, VERBAL ORDER GIVEN FOR VIOLENT RESTRAINTS DUE TO PT BEHAVIOR WELL ANOTHER 2MG IVP ATIVAN STAT. 1410 HARD RESTRAINTS PLACED ON PT AND 2MG ATIVAN GIVEN IVP PER ABOVE ORDER, PT STILL FIGHTING STAFF, L AC IV DISPLACED. 1415 VERBAL ORDER FOR 5 MG HALDOL AND 2MG ATIVAN IM INJECTION PER LETY JENKINS AT BEDSIDE, MEDICATION ADMINISTERED AT THIS TIME PER ETELVINA NICOLE. PT STILL FIGHTING WITH STAFF.
[2020-02-16] MEDS: LORazepam INJ (*CRX) 2 MG/ML VIAL IV PUSH (14:05)
--- NOTE | 2020-02-16 14:07 | ECG_ITS ---
Measurements Intervals [place] Rate: 82 P: 75 IN: 138 QRS: 49 QRSD: 86 T: 60 QT: 373 QTc: 438 Interpretive Statements SINUS RHYTHM BASELINE ARTIFACT- AVR, AVL, AVF, V4-V5 BORDERLINE ECG Electronically Signed On 02-16-2020 14:22:44 PEDIATRIC AUDIOLOGIST by Davidson Juarez D.O.
[2020-02-16] MEDS: diphenhydrAMINE HCl INJ 50 MG/ML VIAL (14:10)
[2020-02-16] MEDS: LORazepam INJ (*CRX) 2 MG/ML VIAL ×2 (14:10→14:15)
[2020-02-16] MEDS: HALOPERIDOL LACTATE 5 MG/ML VIAL IM (14:15)
[2020-02-16 14:27] LABS: Glucose Point of Care 117 (65-105)
--- NOTE | 2020-02-16 14:31 | PCRCNOTE ---
pt too combative. Dr Alcaraz said to hold off on getting an ABG
[2020-02-16] MEDS: SODIUM CHLORIDE 0.9% IV 1,000 ML 999 ML IV CONT (14:41)
[2020-02-16 14:44] LABS: Basophils Percent Auto 0.3 % (0.2-1.2); Eosinophils Absolute Auto 0.2 K/mm3 (0-0.3); Eosinophils Percent Auto 1.7 % (0-4.4); Hematocrit 41.5 % (42.0-52.0); Hemoglobin 13.4 g/dL (14.0-18.0); Immature Granulocyte Absolute 0.06 K/mm3 (0.00-0.031); Immature Granulocyte Percent A 0.6 % (0-0.5); Lymphocytes Absolute Auto 2.08 K/mm3 (0.9-3.2); Lymphocytes Percent Auto 22.2 % (18.3-44.2); Mean Corpuscular HGB Conc 32.3 g/dl (32-36); Mean Platelet Volume 10.9 fl (7.4-10.4); Monocytes Absolute Auto 0.7 K/mm3 (0.1-0.6); Monocytes Percent Auto 7.1 % (2.6-8.5); Neutrophils Absolute Auto 6.4 K/mm3 (1.3-6.7); Neutrophils Percent Auto 68.1 % (45.5-73.1); Platelet Count Result 146 k/mm3 (150-375); Red Blood Count 4.19 M/mm3 (4.6-6.20); Red Cell Distribution Width 15.2 % (11.5-14.5); White Blood Count 9.4 K/mm3 (4.5-10.0)
--- NOTE | 2020-02-16 14:50 | PC.NURSE ---
LETY JENKINS AT BEDSIDE, AT THIS TIME SHE HAS RELEASED PT L ARM AND R LEG, AT THE PERSISTENT REQUEST OF PT . ERP HAS INFORMED THAT IF PT BECOMES AGITATED AGAIN HE WILL BE PLACED BACK INTO THE 4 POINT RESTRAINTS. FAMILY VERBALIZES UNDERSTANDING.
[2020-02-16 14:54] LABS: INR 1.1; Prothrombin Time 14.6 Seconds (11.1-14.7)
[2020-02-16 14:55] LABS: Ammonia 104 umol/L (9-30)
[2020-02-16 15:00] LABS: Albumin Level 4.6 g/dL (3.5-5.1); Alkaline Phosphatase 89 U/L (38-126); Anion Gap 23 mmol/L (8-16); Aspartate Amino Transferase 38 U/L (17-59); Bilirubin,Total 0.4 mg/dL (0.2-1.3); Blood Urea Nitrogen 9 mg/dL (9-20); Calcium 9.7 mg/dL (8.4-10.2); Carbon Dioxide 14 mmol/L (22-30); Chloride 106 mmol/L (98-107); Creatine Kinase 111 U/L (55-170); Estimated Glomerular Filt Rate > 60; Glucose 116 mg/dL (75-110); Potassium 3.7 mmol/L (3.4-5.0); Sodium 143 mmol/L (137-145)
--- NOTE | 2020-02-16 15:00 | PC.NURSE ---
VERBAL ORDER FROM ERP BERTELS TO HOLD ORDER FOR STRAIGHT CATH AT THIS TIME.
--- NOTE | 2020-02-16 15:08 | PC.NURSE ---
PT AND FAMILY UNABLE TO RECALL PT MEDICATION.
--- NOTE | 2020-02-16 15:10 | PC.NURSE ---
ALL RESTRAINTS REMOVED AT 1510.
[2020-02-16 15:20] LABS: Alanine Aminotransferase 32 U/L (4-50)
--- NOTE | 2020-02-16 15:23 | PC.NURSE ---
VERBAL ORDER FROM ERP BERTELS TO CANCEL THE LACTULOSE ENEMA.
[2020-02-16] MEDS: LACTULOSE 20 GM/30 ML UDC PO (15:30)
[2020-02-16] MEDS: levETIRAcetam 1000MG/NACL100ML 1,000 MG/100 ML BAG 400 MG IVPB (16:11)
[2020-02-16 16:22] LABS: Add Urine Microscopic? YES; Appearance Urine Clear (Clear); Bilirubin Urine Negative (Negative); Blood Urine Negative (Negative); Color Urine Yellow (Yellow); Glucose Urine UA Negative (Negative); Ketones Urine Negative (Negative); Leukocyte Esterase Ur Negative LEU/UL (Negative); Mucus Urine Rare /lpf; Nitrate Urine Negative (Negative); Protein Urine 1+ mg/dL (Negative); Specific Grav Ur 1.019 (1.001-1.035); Squamous Epithelial Cell Urine Occasional /hpf (Few); Urobilinogen Urine Negative mg/dL (<2.0); WBC Urine 0-3 /hpf
[2020-02-16 16:35] LABS: Amphetamine Screen Urine Negative (Negative); Barbiturate Screen Urine Negative (Negative); Benzodiazepines Screen Urine Negative (Negative); Cannabinoid Screen Urine Positive (Negative); Cocaine Screen Urine Negative (Negative); Methadone Screen Urine Negative (Negative); Opiate Screen Urine Positive (Negative); Phencyclidine Screen Urine Negative (Negative)
--- NOTE | 2020-02-16 16:58 | PC.NURSE ---
REPORT TO ETELVINA STEARNS AT THIS TIME SHE HAS ASSUMED PT CARE.
--- NOTE | 2020-02-16 19:59 | ADMGEN ---
This patient, Ronan Baez, was admitted to IMU Room 232-01. Patient/family oriented to hospital policies and general routines including ID bracelet, bed and alarms, visiting hours, pain management, procedures, bathroom and other care routines, personal items, smoking policy, room service/diet, and visiting hours. Information on how to activate the Rapid Response Team has been discussed. Patient/Family are encouraged to report perceived risks to care and to ask questions if they do not understand what they are told or what they should do.
[2020-02-16] MEDS: SODIUM CHLORIDE 0.9% IV 1,000 ML 125 ML IV CONT (20:12)
[2020-02-17] VITALS (12 sets, daily range): BP systolic 118–142; BP diastolic 63–78; PULSE 79–100; RESP 14–20; TEMP 36.1–36.9; O2SAT 96–100
[2020-02-17] MEDS: SODIUM CHLORIDE 0.9% IV 1,000 ML 125 ML IV CONT ×3 (04:41→21:56)
[2020-02-17] MEDS: LACTULOSE 20 GM/30 ML UDC PO (09:55)
--- NOTE | 2020-02-17 11:59 | PM.IMHP ---
H&P: HPI History of Present Illness Date/Time: 02/17/20 11:59 Seizure. Chief Complaint: Seizure Narrative: Ronan Baez is a 54 year old male with PMHx significant for ETOH dependence, Hepatic Cirrhosis, that presented to ED via EMS after family witnessed a seizure at home, upon arrival to ED patient was agitated, not much history has been obtained from him as he has AMS only answers y/n questions and randomly mouths words. Patient was found to have elevated ammonia levels, a CT of the head did not show any acute abnormalities. Patient was loaded with Keppra in emergency room. Review of Systems Review of Systems: Narrative: Unable to get a thorough review as patient is delirious. [facility] Past Medical History Medical History (Updated 02/17/20 @ 13:35 by Eliud Swartz MD) Hepatic encephalopathy Hepatocellular carcinoma Seizure Family History Family History (Updated 02/16/20 @ 20:53 by Chloé Ceballos RN) Father Hypertension Cerebrovascular accident Myocardial infarct Sibling Hypertension Sibling Hypertension Social History Social History (Updated 02/16/20 @ 16:03 by Yandy Short MD) Smoking status: Current every day smoker Tobacco type: cigarettes Alcohol intake: former Substance use: current Substance use type: marijuana Living arrangements: with family Gender identity (if verbalized by the patient): Male Spiritual care concerns: No Meds Home Medications and Allergies Home Medications Medication Instructions Recorded Confirmed Type albuterol sulfate 2.5 mg INHALATION Q4H PRN 02/16/20 02/16/20 History albuterol sulfate [ProAir HFA] 2 puff INHALATION PRN PRN 02/16/20 02/16/20 History calcium carbonate-vitamin D3 1 cap PO BID 02/16/20 02/16/20 History [Calcium 600 + D(3)] gabapentin 800 mg PO QID 02/16/20 02/16/20 History levetiracetam [Keppra] 500 mg PO BID 02/16/20 02/16/20 History tektvscenjeg-lko-lqwm-FA-vit K 1 tablet PO DAILY 02/16/20 02/16/20 History [Adults Multivitamin] oxycodone 20 mg PO Q4H PRN 02/16/20 02/16/20 History tamsulosin [Flomax] 0.4 mg PO HS 02/16/20 02/16/20 History tenofovir disoproxil fumarate 300 mg PO DAILY 02/16/20 02/16/20 History Allergies Allergy/AdvReac Type Severity Reaction Status Date / Time ciprofloxacin Allergy Unknown Verified 02/16/20 14:43 fentanyl Allergy Unknown Verified 02/16/20 14:43 Vital Signs Vital Signs - 24 hr 02/16/20 13:41 02/16/20 13:57 02/16/20 13:58 Temperature 98.7 F Pulse Rate 88 85 87 Respiratory Rate 18 28 H Blood Pressure 117/71 Pulse Oximetry 98 100 02/16/20 13:59 02/16/20 14:00 02/16/20 14:02 Temperature Pulse Rate 115 H Respiratory Rate 33 H 32 H Blood Pressure 108/80 Pulse Oximetry 99 100 02/16/20 14:07 02/16/20 14:18 02/16/20 14:20 Temperature Pulse Rate 120 H 130 H Respiratory Rate 25 H 35 H Blood Pressure 148/66 H Pulse Oximetry 97 100 79 L 02/16/20 14:30 02/16/20 14:32 02/16/20 14:45 Temperature Pulse Rate 104 H 104 H 124 H Respiratory Rate 18 22 H 24 H Blood Pressure 109/56 L Pulse Oximetry 98 98 02/16/20 14:46 02/16/20 14:47 02/16/20 15:00 Temperature Pulse Rate 122 H 112 H 110 H Respiratory Rate 28 H 30 H 22 H Blood Pressure 118/63 118/63 Pulse Oximetry 99 02/16/20 15:01 02/16/20 15:02 02/16/20 15:15 Temperature Pulse Rate 107 H 110 H 109 H Respiratory Rate 27 H 25 H 26 H Blood Pressure 109/50 L Pulse Oximetry 98 02/16/20 15:16 02/16/20 15:30 02/16/20 15:45 Temperature Pulse Rate 100 108 H 89 Respiratory Rate 19 16 20 Blood Pressure 107/50 L Pulse Oximetry 02/16/20 15:46 02/16/20 16:00 02/16/20 16:01 Temperature Pulse Rate 88 88 86 Respiratory Rate 19 19 18 Blood Pressure 106/64 109/62 Pulse Oximetry 02/16/20 16:02 02/16/20 16:15 02/16/20 16:16 Temperature Pulse Rate 88 82 83 Respiratory Rate 20 17 17 Blood Pressure 110/65 Pulse Oximetry 02/16/20 16
--- NOTE | 2020-02-17 14:15 | WPDNEURCNPN ---
Assessment and Plan Assessment and plan (1) EtOH dependence: Code(s): F10.20 - Alcohol dependence, uncomplicated Status: Acute (2) Generalized seizure: Code(s): R56.9 - Unspecified convulsions Status: Acute (3) Acute hepatic encephalopathy: Code(s): K72.00 - Acute and subacute hepatic failure without coma Status: Acute (4) Hyperammonemia: Code(s): E72.20 - Disorder of urea cycle metabolism, unspecified Status: Acute Additional Plan Treatment as such Consult date: 02/17/20 Time Seen: 14:15 HPI: Ronan Baez is a 54 year old male admitted to the hospital with ongoing diagnosis of 1. ETOH dependence 2. hepatic cirrhosis 3. Seizures. In addition to the history of hepatic encephalopathy in the past hepatocellular carcinoma and seizures. And currently smoking and living with the family also already taking Keppra 500 mg p.o. b.i.d. evaluation positive for the urine positive for opiates and cannabinoids also negative CT scan of the head Review of Systems Review of Systems: All systems reviewed & are unremarkable except as noted in HPI and below PMFSH Past Medical History Medical History Hepatic encephalopathy Hepatocellular carcinoma Seizure Family History Family History Father Hypertension Cerebrovascular accident Myocardial infarct Sibling Hypertension Sibling Hypertension Social History Social History Smoking status: Current every day smoker Tobacco type: cigarettes Alcohol intake: former Substance use: current Substance use type: marijuana Living arrangements: with family Gender identity (if verbalized by the patient): Male Spiritual care concerns: No Meds Home Medications and Allergies Home Medications Medication Instructions Recorded Confirmed Type albuterol sulfate 2.5 mg INHALATION Q4H PRN 02/16/20 02/16/20 History albuterol sulfate [ProAir HFA] 2 puff INHALATION PRN PRN 02/16/20 02/16/20 History calcium carbonate-vitamin D3 1 cap PO BID 02/16/20 02/16/20 History [Calcium 600 + D(3)] gabapentin 800 mg PO QID 02/16/20 02/16/20 History levetiracetam [Keppra] 500 mg PO BID 02/16/20 02/16/20 History jsnbkrgjonvy-zss-exgm-FA-vit K 1 tablet PO DAILY 02/16/20 02/16/20 History [Adults Multivitamin] oxycodone 20 mg PO Q4H PRN 02/16/20 02/16/20 History tamsulosin [Flomax] 0.4 mg PO HS 02/16/20 02/16/20 History tenofovir disoproxil fumarate 300 mg PO DAILY 02/16/20 02/16/20 History Allergies Allergy/AdvReac Type Severity Reaction Status Date / Time ciprofloxacin Allergy Unknown Verified 02/16/20 14:43 fentanyl Allergy Unknown Verified 02/16/20 14:43 Vital Signs Vital Signs - 24 hr 02/16/20 14:18 02/16/20 14:20 02/16/20 14:30 Temperature Pulse Rate 120 H 130 H 104 H Respiratory Rate 25 H 35 H 18 Blood Pressure 148/66 H Pulse Oximetry 100 79 L 98 02/16/20 14:32 02/16/20 14:45 02/16/20 14:46 Temperature Pulse Rate 104 H 124 H 122 H Respiratory Rate 22 H 24 H 28 H Blood Pressure 109/56 L 118/63 Pulse Oximetry 98 02/16/20 14:47 02/16/20 15:00 02/16/20 15:01 Temperature Pulse Rate 112 H 110 H 107 H Respiratory Rate 30 H 22 H 27 H Blood Pressure 118/63 109/50 L Pulse Oximetry 99 98 02/16/20 15:02 02/16/20 15:15 02/16/20 15:16 Temperature Pulse Rate 110 H 109 H 100 Respiratory Rate 25 H 26 H 19 Blood Pressure 107/50 L Pulse Oximetry 02/16/20 15:30 02/16/20 15:45 02/16/20 15:46 Temperature Pulse Rate 108 H 89 88 Respiratory Rate 16 20 19 Blood Pressure 106/64 Pulse Oximetry 02/16/20 16:00 02/16/20 16:01 02/16/20 16:02 Temperature Pulse Rate 88 86 88 Respiratory Rate 19 18 20 Blood Pressure 109/62 Pulse Oximetry 02/16/20 16:15 02/16/20 16:16 02/16/20 16:30 Temperature Pulse Rate 82 83
[2020-02-17] MEDS: oxyCODONE HCL (*CRX) 5 MG TAB IR 20 MG PO ×2 (14:42→21:55)
[2020-02-17] MEDS: levETIRAcetam 500 MG TABLET PO (17:02)
[2020-02-17] MEDS: CALCIUM CARBONATE (OSCAL) 500 MG TABLET PO (17:03)
[2020-02-17] MEDS: GABAPENTIN 400 MG CAPSULE 800 MG PO ×2 (17:03→21:50)
[2020-02-17] MEDS: TAMSULOSIN HCL 0.4 MG CAPSULE PO (21:50)
[2020-02-18] VITALS: BP 140/70; PULSE 71; PULSE 73; RESP 16; TEMP 36.1; O2SAT 97
[2020-02-18 02:00] VITALS: PULSE 78
[2020-02-18 04:00] VITALS: BP 110/77; PULSE 74; PULSE 84; RESP 16; TEMP 36.3; O2SAT 97
[2020-02-18] MEDS: SODIUM CHLORIDE 0.9% IV 1,000 ML 125 ML IV CONT (05:41)
[2020-02-18 06:00] VITALS: PULSE 78
[2020-02-18 08:00] VITALS: BP 147/92; PULSE 83; PULSE 85; RESP 16; TEMP 36.3; O2SAT 100
[2020-02-18] MEDS: LACTULOSE 20 GM/30 ML UDC PO (08:35)
[2020-02-18] MEDS: GABAPENTIN 400 MG CAPSULE 800 MG PO (08:35)
[2020-02-18] MEDS: CALCIUM CARBONATE (OSCAL) 500 MG TABLET PO (08:35)
[2020-02-18] MEDS: MULTIVITAMINS /C LUTEIN (CENTRUM SILVER) TABLET *BKC 1 TAB PO (08:36)
[2020-02-18] MEDS: levETIRAcetam 500 MG TABLET PO (08:36)
[2020-02-18 08:47] VITALS: BMI 18.0
[2020-02-18 09:18] LABS: Basophils Percent Auto 0.5 % (0.2-1.2); Eosinophils Absolute Auto 0.1 K/mm3 (0-0.3); Eosinophils Percent Auto 2.7 % (0-4.4); Hematocrit 38.5 % (42.0-52.0); Hemoglobin 13.2 g/dL (14.0-18.0); Immature Granulocyte Absolute 0.01 K/mm3 (0.00-0.031); Immature Granulocyte Percent A 0.3 % (0-0.5); Immature Platelet Fraction Pct 5.6 % (0.9-11.2); Lymphocytes Absolute Auto 0.41 K/mm3 (0.9-3.2); Mean Corpuscular HGB Conc 34.3 g/dl (32-36); Mean Corpuscular Hemoglobin 31.8 pg (26-34); Mean Corpuscular Volume 92.8 fl (80-100); Mean Platelet Volume 10.9 fl (7.4-10.4); Monocytes Absolute Auto 0.3 K/mm3 (0.1-0.6); Neutrophils Absolute Auto 2.9 K/mm3 (1.3-6.7); Neutrophils Percent Auto 78.5 % (45.5-73.1); Platelet Count Result 91 k/mm3 (150-375); Red Blood Count 4.15 M/mm3 (4.6-6.20); Red Cell Distribution Width 14.6 % (11.5-14.5); White Blood Count 3.7 K/mm3 (4.5-10.0)
[2020-02-18 09:28] LABS: Ammonia < 9 umol/L (9-30)
[2020-02-18 09:29] LABS: Anion Gap 7 mmol/L (8-16); Blood Urea Nitrogen 10 mg/dL (9-20); Calcium 9.3 mg/dL (8.4-10.2); Carbon Dioxide 25 mmol/L (22-30); Chloride 109 mmol/L (98-107); Estimated CRCL calculation 81 ml/min; Estimated Glomerular Filt Rate > 60; Glucose 112 mg/dL (75-110); Potassium 4.2 mmol/L (3.4-5.0); Sodium 141 mmol/L (137-145)
[2020-02-18 10:00] VITALS: PULSE 71
[2020-02-19 07:24] LABS: Levetiracetam Keppra 9.4 mcg/mL (12.0-46.0)
--- NOTE | 2020-03-10 19:10 | PM.DS ---
DS: Admitting Diagnosis Admitting Diagnosis Admitting Diagnosis: Seizure AMS ETOH dependence DS: Discharge Diagnosis Discharge Diagnosis (1) Cirrhosis: Code(s): K74.60 - Unspecified cirrhosis of liver Status: Acute (2) COPD (chronic obstructive pulmonary disease): Code(s): J44.9 - Chronic obstructive pulmonary disease, unspecified Status: Acute (3) Hepatocellular carcinoma: Code(s): C22.0 - Liver cell carcinoma Status: Acute (4) Seizure: Code(s): R56.9 - Unspecified convulsions Status: Acute (5) History of hepatitis B: Code(s): Z86.19 - Personal history of other infectious and parasitic diseases Status: Acute (6) Chronic pain syndrome: Code(s): G89.4 - Chronic pain syndrome Status: Acute (7) Narcotic withdrawal epilepsy: Code(s): F11.23 - Opioid dependence with withdrawal; G40.909 - Epilepsy, unspecified, not intractable, without status epilepticus Status: Acute (8) EtOH dependence: Code(s): F10.20 - Alcohol dependence, uncomplicated Status: Acute (9) Generalized seizure: Code(s): R56.9 - Unspecified convulsions Status: Acute (10) Hyperammonemia: Code(s): E72.20 - Disorder of urea cycle metabolism, unspecified Status: Acute (11) Acute hepatic encephalopathy: Code(s): K72.00 - Acute and subacute hepatic failure without coma Status: Acute DS: Summary Hospital Course Hospital Course: Patient was admitted to IMU we obtained a consult with Neurology. Patient was loaded with Keppra , home meds were re started. It was noticed that his ammonia level was elevated at admission time patient was placed on iv fluids and Lactulose. Patient remained seizure free after admission. In view that patient was back to baseline he was discharged home. EXAMINATION: CT brain wo con DATE: 02/16/2020 16:27 INDICATION: Recurrent seizures. TECHNIQUE: Computed tomography (CT) of the head was performed without intravenous contrast. The dose-length product was 605.33 mGy-cm. Automated exposure control and iterative reconstruction technique were employed. COMPARISON: CT dated 01/17/2020 FINDINGS: Mild generalized atrophy. There are scattered mild periventricular and subcortical white matter changes, most likely related to small vessel ischemic disease (microangiopathy). No ventriculomegaly or midline shift. Basilar cisterns are patent. There is intracranial atherosclerosis. Paranasal sinuses and mastoids are unremarkable. No acute intracranial hemorrhage, infarction, mass or mass effect. IMPRESSION: 1. No acute intracranial abnormality. [place] [address] [place] [id number] XRay Report Signed Patient: Ronan Baez : 1965#: [id number] Age/Sex: 54 / MAcct:[id number] Loc: [facility] ADM Date: 02/16/[address]: Ordering Physician: Yandy Short MD Date of Service: 02/16/20 Procedure(s): XR chest 2V Accession Number(s): [id number] cc: Yandy Short MD; Raad, Jazmin Turpin MD~ EXAMINATION: XR chest 2V 02/16/2020 16:41 INDICATION: Seizure. History of COPD. Transient alteration of awareness. PROCEDURE: AP portable chest COMPARISON: Comparison to multiple prior studies sequentially, with oldest reviewed study dated 05/25/2011. FINDINGS: The lungs are clear. The cardiomediastinal silhouette is within normal limits. There are no pleural effusions. There is no pneumothorax suspected. The lungs are hyperinflated which is consistent with, but not diagnostic of chronic obstructive pulmonary disease. IMPRESSION: 1: NO ACUTE CARDIOPULMONARY DISEASE. Status at Discharge Functional status at discharge: independent ambulation Overall status at discharge: patient is back to baseline Time Spent with Patient Time attestation: Total time spent providing and/or coordinating discharge services: Time spent: Greater than 30 viri
== END 2020-02-18 11:03 | disposition home or self-care (01) | DRG 100 ==
LOC: ANHED 18:24 → ANHIMU 18:54
PROVIDERS: Admitting Provider Internal Medicine; Emergency Provider Emergency Medicine; PCP Family Medicine; Visit Provider Internal Medicine
DX: G40.909 Epilepsy, unspecified, not intractable, without status epilepticus (principal); K72.00 Acute and subacute hepatic failure without coma; F11.23 Opioid dependence with withdrawal; E72.20 Disorder of urea cycle metabolism, unspecified; K74.60 Unspecified cirrhosis of liver; G89.4 Chronic pain syndrome; F10.20 Alcohol dependence, uncomplicated; Z85.05 Personal history of malignant neoplasm of liver; F17.210 Nicotine dependence, cigarettes, uncomplicated; Z86.19 Personal history of other infectious and parasitic diseases
CPT/HCPCS: 36415; 36600; 70450; 71046; 80048; 80053; 80177; 80307; 81001; 82140; 82550; 82948; 85025; 85055; 85610; 85730; 93005; 96361; 96365; 96372; 96375; 99285; A9270; J1200; J1630; J1953; J2060; J7030

== ENCOUNTER 2020-07-10 06:21 | Emergency (ER) | payer MEDICARE, MEDICAID, SELFPAY ==
--- NOTE | ~2020-07-10 | CT_ITS ---
EXAMINATION: CT abdomen pelvis w con DATE: 07/10/2020 08:08 INDICATION: Right upper quadrant abdominal pain. TECHNIQUE: Computed tomography (CT) of the abdomen and pelvis was performed with 100 mL Omnipaque 350 intravenous contrast. Automated exposure control and iterative reconstruction technique were employe d. The dose-length product was 294.94 mGy-cm. COMPARISON: CT abdomen and pelvis 04/23/2019, 05/22/17, chest CT 08/09/08 FINDINGS: The visualized portions of the lung bases demonstrate emphysema and minimal atelectasis. No pleural effusion. The heart size is normal. No pericardial effusion. Paraesophageal varices are note d. The liver demonstrates surface nodularity, consistent with cirrhosis. In the posterior liver dome, there is a 2.8 x 0.9 cm hypoattenuating mass with capsular retraction. There is a 2.3 x 1.8 cm mass in left hepatic lobe near the hilum. There is mild intrahepatic biliary duct dilatation in left hepat ic lobe peripheral to the mass. There are changes of cholecystectomy. There is moderate splenomegaly measuring 16.0 cm. The pancreas, adrenal glands, and kidneys are normal. The prostate is mildly enlar ged. There is diverticulosis of the colon without evidence of diverticulitis. The appendix is normal. There are no pathologically enlarged lymph nodes. There is trace ascites. There is severe lumbar spo ndylosis. IMPRESSION: 1. 2.3 cm mass in left hepatic lobe, consistent with hepatocellular carcinoma versus metastatic disea se, new from 05/22/17. 2. 2.8 cm peripheral liver mass with capsular retraction, stable from 05/22/17. Note that the patient' s history of hepatocellular carcinoma is based on an outside MRI many years ago with mass with high r isk features in this area. If the patient has not received treatment for hepatocellular carcinoma, th is finding is likely benign. 3. Cirrhosis of the liver with portal venous hypertension. Reviewed, dictated and finalized at location B. IMPRESSION: 1. 2.3 cm mass in left hepatic lobe, consistent with hepatocellular carcinoma v ersus metastatic disease, new from 05/22/17. 2. 2.8 cm peripheral liver mass with capsular retraction, stable from 05/22/17. Note that the patient's history of hepatocellular carcinoma is based on an outs nanda MRI many years ago with mass with high risk features in this area. If the p atient has not received treatment for hepatocellular carcinoma, this finding is likely benign. 3. Cirrhosis of the liver with portal venous hypertension.
--- NOTE | ~2020-07-10 | XR_ITS ---
EXAMINATION: XR chest 1V DATE: 07/10/2020 08:12 INDICATION: Vomiting. TECHNIQUE: A single frontal view of the chest was obtained. COMPARISON: Chest 2 views 02/16/2020, CT abdomen and pelvis 07/10/2020, chest CT 04/23/2019 FINDINGS: There are lucencies in the lungs, consistent with emphysema. There are airspace opacities i n right upper lung zone. There is mild scarring at the lung apices. No pleural effusion or pneumothor ax. The heart size is normal. IMPRESSION: 1. New airspace opacities in right upper lobe, consistent with pneumonia. 2. Emphysema. Reviewed, dictated and finalized at location B.
--- NOTE | ~2020-07-10 | CT_ITS ---
EXAMINATION: CT brain wo con DATE: 07/10/2020 08:08 INDICATION: Headache. Seizure. TECHNIQUE: Computed tomography (CT) of the head was performed without intravenous contrast. The mA wa s adjusted according to patient size. Iterative reconstruction technique was employed. The dose-lengt h product was 529.67 mGy-cm. COMPARISON: Head CT 02/16/2020 FINDINGS: There are scattered areas of low attenuation in the cerebral white matter. There is no intr acranial hemorrhage, acute infarction, or abnormal intracranial mass lesion. The ventricles are meka l in size. The orbits are normal. There is mild mucosal thickening in the paranasal sinuses. The mast oid air cells are normal. IMPRESSION: 1. Stable mild nonspecific cerebral white matter disease, which likely represents chronic small vesse l ischemic disease. Reviewed, dictated and finalized at location B. IMPRESSION: 1. Stable mild nonspecific cerebral white matter disease, which likely represen ts chronic small vessel ischemic disease.
[2020-07-10 06:19] VITALS: BP 150/76; PULSE 81; PULSE 88; RESP 34; TEMP 36.7; O2SAT 100
--- NOTE | 2020-07-10 06:29 | PC.NURSE ---
Pt making unintelligible noises, moaning, and cursing. Pt uncooperative with questioning and following instruction at this time. Seizure pads placed.
--- NOTE | 2020-07-10 06:37 | PC.NURSE ---
reports that pt behavior is typical for pt post-seizure.
--- NOTE | 2020-07-10 06:45 | PC.NURSE ---
Per EMS crew, pt has hx of seizures and had seizure at home prior to arrival in ED. Per EMS, pt's current behaviors are typical for him when he is postictal. Pt currently unable OR possibly unwilling to answer questions or follow commands. Moaning, cursing, and intermittently yelling out oh my God! . Pt asked multiple times by this RN to describe what is hurting him. Pt ignores staff questions and refuses to wear mask over his mouth/nose on arrival. Pt reluctantly cooperative at best, and recently arrived in ED 5 and is at pt's bedside. Pt is able to converse with her without difficulty, and is heard answering her questions appropriately. Hep B. Dry heaving. refusing to keep mask in place. coughing, gagging, and spitting. pt too uncooperative for staff to attempt IV pacement at present. Per serology technician, pt violent during postictal phase on last visit and was restrained by staff for safety of all. Pt on campus monitor/ bp cuff/ and O2 monitor. awaiting further instruction. will continue to monitor.
--- NOTE | 2020-07-10 07:03 | ED.SEIZURE ---
HPI - Seizure General Chief Complaint: Seizure Stated Complaint: SEIZURE Time Seen by Provider: 07/10/20 07:01 History of Present Illness HPI Narrative: 54 yo male w/ h/o hepatocellular carcinoma, cirrhosis, seizures presents to the ED after a seizure. He reportedly had a witnessed tonic clonic seizure this morning. This lasted approximately 1 minute. It was followed by a period of post ictal confusion. He did not fall or injury himself during the seizure. He has reportedly been having daily headaches and liver pain for the past week. He vomited yesterday, but he says this is not unusual for him. No fever, chest pain, SOB, diarrhea. Seizure History: Yes Related Data Home Medications Medication Instructions Recorded Confirmed albuterol sulfate 01/17/20 albuterol sulfate INHALATION 01/17/20 gabapentin 01/17/20 omeprazole 01/17/20 tamsulosin mg PO 01/17/20 tenofovir disoproxil fumarate 01/17/20 Adults Multivitamin 1 tablet PO DAILY 02/16/20 02/16/20 Calcium 600 + D(3) 1 cap PO BID 02/16/20 02/16/20 albuterol sulfate 2.5 mg INHALATION Q4H PRN 02/16/20 02/16/20 albuterol sulfate [ProAir HFA] 2 puff INHALATION PRN PRN 02/16/20 02/16/20 gabapentin 800 mg PO QID 02/16/20 02/16/20 levetiracetam [Keppra] 500 mg PO BID 02/16/20 02/16/20 oxycodone 20 mg PO Q4H PRN 02/16/20 02/16/20 tamsulosin [Flomax] 0.4 mg PO HS 02/16/20 02/16/20 tenofovir disoproxil fumarate 300 mg PO DAILY 02/16/20 02/16/20 Allergies Allergy/AdvReac Type Severity Reaction Status Date / Time hornet venom Allergy Unknown Unknown Verified 02/20/20 12:15 metronidazole Allergy Unknown Nausea And Verified 02/20/20 12:15 Vomiting strawberry Allergy Unknown Unknown Verified 02/20/20 12:15 ciprofloxacin Allergy Unknown Verified 02/20/20 12:15 fentanyl Allergy Unknown Verified 02/20/20 12:15 Review of Systems Review of Systems: All systems reviewed & are unremarkable except as noted in HPI and below Constitutional: Constitutional: Denies chills and Denies fever(s) Eyes: Eyes: Reports no additional eye complaints ENT: Denies dizziness Cardiovascular: Cardiovascular: Denies chest pain Respiratory: Respiratory: Denies dyspnea Gastrointestinal: Gastrointestinal: Reports abdominal pain, Denies diarrhea, Reports nausea and Reports vomiting Genitourinary: Genitourinary: Reports no additional male genitourinary complaints Musculoskeletal: Musculoskeletal: Reports no additional musculoskeletal complaints Neurologic: Denies confusion and Reports weakness PMFSH Past Medical History Medical History Chronic pain syndrome Cirrhosis COPD (chronic obstructive pulmonary disease) GERD (gastroesophageal reflux disease) Hepatic encephalopathy Hepatocellular carcinoma Hepatocellular carcinoma History of hepatitis B Hx of peptic ulcer as a child Seizure Seizure Surgical History Surgical History History of cholecystectomy History of tibial fracture requiring surgical repair. Family History Family History Father Hypertension Cerebrovascular accident Myocardial infarct Sibling Hypertension Sibling Hypertension Father Hypertension Cerebrovascular accident Family history of coronary artery disease Sibling Hypertension Social History Social History Social History: Smokes 1/2 ppd since 17yo. He is trying to quit. Lives at home with his and children. He is a full code. Smoking packs per day: 0.5 Smoking cigarettes per day: 10.0 Years smoked: 36 Smoking pack-years: 18.00 Smoking status: Current every day smoker Tobacco type: cigarettes Second hand tobacco smoke exposure: Yes Smoking end date: 03/01/13 Alcohol intake: former Substance use: current Substance use type: marijuana, c
[2020-07-10] MEDS: SODIUM CHLORIDE 0.9% IV 1,000 ML 999 ML IV CONT (07:15)
[2020-07-10] MEDS: ONDANSETRON INJ 4 MG/2 ML VIAL IV PUSH (07:16)
--- NOTE | 2020-07-10 07:17 | PC.NURSE ---
ED MD at bedside for assessment. Pt more alert, can respond to questions, cooperative. states his liver is hurting really bad and maybe when he gets dehydrated the seizures come on . N/V starting last night. Pt follows liver specialist at [facility]
[2020-07-10 07:29] LABS: Basophils Percent Auto 0.2 % (0.2-1.2); Hematocrit 39.3 % (42.0-52.0); Hemoglobin 13.5 g/dL (14.0-18.0); Immature Granulocyte Absolute 0.15 K/mm3 (0.00-0.031); Immature Granulocyte Percent A 1.2 % (0-0.5); Lymphocytes Absolute Auto 0.37 K/mm3 (0.9-3.2); Lymphocytes Percent Auto 2.9 % (18.3-44.2); Mean Corpuscular HGB Conc 34.4 g/dl (32-36); Mean Corpuscular Hemoglobin 31.8 pg (26-34); Mean Corpuscular Volume 92.5 fl (80-100); Mean Platelet Volume 12.1 fl (7.4-10.4); Monocytes Absolute Auto 0.6 K/mm3 (0.1-0.6); Monocytes Percent Auto 4.3 % (2.6-8.5); Neutrophils Absolute Auto 11.6 K/mm3 (1.3-6.7); Neutrophils Percent Auto 91.4 % (45.5-73.1); Platelet Count Result 59 k/mm3 (150-375); Red Blood Count 4.25 M/mm3 (4.6-6.20); Red Cell Distribution Width 15.5 % (11.5-14.5); White Blood Count 12.7 K/mm3 (4.5-10.0)
[2020-07-10 07:36] LABS: Ammonia < 9 umol/L (9-30); Ethanol < 10 mg/dL (<10); Lactic Acid Reflex 1.5 mmol/L (0.7-2.1)
[2020-07-10 07:38] LABS: Alanine Aminotransferase 34 U/L (4-50); Albumin Level 4.7 g/dL (3.5-5.1); Alkaline Phosphatase 115 U/L (38-126); Anion Gap 10 mmol/L (8-16); Aspartate Amino Transferase 39 U/L (17-59); Bilirubin,Total 1.1 mg/dL (0.2-1.3); Blood Urea Nitrogen 12 mg/dL (9-20); Calcium 10.4 mg/dL (8.4-10.2); Carbon Dioxide 26 mmol/L (22-30); Chloride 107 mmol/L (98-107); Estimated Glomerular Filt Rate > 60; Glucose 134 mg/dL (75-110); Lipase 16 U/L (23-300); Magnesium 1.9 mg/dL (1.6-2.3); Potassium 3.5 mmol/L (3.4-5.0); Sodium 143 mmol/L (137-145)
[2020-07-10 07:40] LABS: INR 1.3; Prothrombin Time 16.6 Seconds (11.1-14.7)
[2020-07-10 07:41] LABS: Partial Thromboplastin Time 34.6 SECONDS (22.3-36.8)
[2020-07-10 08:37] LABS: Add Urine Microscopic? YES; Appearance Urine Clear (Clear); Bilirubin Urine Negative (Negative); Blood Urine Negative (Negative); Color Urine Yellow (Yellow); Glucose Urine UA Negative (Negative); Ketones Urine Negative (Negative); Leukocyte Esterase Ur Negative LEU/UL (Negative); Nitrate Urine Negative (Negative); Protein Urine 2+ mg/dL (Negative); Squamous Epithelial Cell Urine Rare /hpf (Few); WBC Urine 0-3 /hpf
[2020-07-10] MEDS: AMOXICILLIN/CLAVULANATE K 875-125 MG TAB 1 TABLET PO (09:13)
[2020-07-10] MEDS: AZITHROMYCIN 250 MG TABLET 500 MG PO (09:13)
[2020-07-10 09:53] VITALS: BP 148/109; PULSE 92; RESP 22; O2SAT 100
== END 2020-07-10 09:57 | disposition home or self-care (01) ==
PROVIDERS: Emergency Medicine; Emergency Provider Emergency Medicine; PCP Family Medicine
DX: G40.909 Epilepsy, unspecified, not intractable, without status epilepticus (principal); J18.9 Pneumonia, unspecified organism; J43.9 Emphysema, unspecified; K21.9 Gastro-esophageal reflux disease without esophagitis; K74.60 Unspecified cirrhosis of liver; K76.6 Portal hypertension; K72.90 Hepatic failure, unspecified without coma; Z85.05 Personal history of malignant neoplasm of liver; Z86.19 Personal history of other infectious and parasitic diseases; F17.210 Nicotine dependence, cigarettes, uncomplicated
CPT/HCPCS: 36415; 70450; 71045; 74177; 80053; 80307; 81001; 82140; 83605; 83690; 83735; 85025; 85055; 85610; 85730; 96361; 96374; 99284; A9270; J2405; J7030; Q9967

== ENCOUNTER 2020-08-01 17:33 | Outpatient (CLI) | payer MEDICARE, MEDICAID, SELFPAY ==
[2020-08-05 02:52] LABS: Hepatitis Be Antibody Nonreactive; Hepatitis Be Antigen Nonreactive
[2020-08-05 12:32] LABS: Hepatitis B DNA PCR <1.00 Log IU/mL; Hepatitis B DNA PCR <10 IU/mL
== END 2020-08-01 17:34 | disposition home or self-care (01) ==
LOC: ANHLAB 17:43
PROVIDERS: PCP Family Medicine
DX: B18.1 Chronic viral hepatitis B without delta-agent (principal)
CPT/HCPCS: 36415; 86707; 87350; 87517

== ENCOUNTER 2020-08-26 13:15 | Emergency (ER) | payer MEDICARE, MEDICAID, SELFPAY ==
[2020-08-26] VITALS (10 sets, daily range): BP systolic 130–169; BP diastolic 70–94; PULSE 96–129; RESP 18–36; TEMP 36.3; O2SAT 98–100
--- NOTE | ~2020-08-26 | XR_ITS ---
EXAMINATION: XR chest 1V portable DATE: 08/26/2020 14:13 INDICATION: Altered mental status. TECHNIQUE: A single frontal view of the chest was obtained. COMPARISON: Chest single view 07/10/2020 FINDINGS: There are mild airspace opacities in right upper lung zone. There is mild scarring at left lung apex. No pleural effusion or pneumothorax. The heart size is normal. IMPRESSION: 1. Improved mild airspace opacities in right upper lung zone, consistent with pneumonia versus scarri ng. Reviewed, dictated and finalized at location A. IMPRESSION: 1. Improved mild airspace opacities in right upper lung zone, consistent with p neumonia versus scarring.
--- NOTE | ~2020-08-26 | CT_ITS ---
EXAMINATION: CT brain wo con DATE: 08/26/2020 14:27 INDICATION: Altered mental status. Seizure. TECHNIQUE: Computed tomography (CT) of the head was performed without intravenous contrast. The mA wa s adjusted according to patient size. Iterative reconstruction technique was employed. The dose-lengt h product was 832.33 mGy-cm. COMPARISON: Head CT 07/10/2020 FINDINGS: There are scattered areas of low attenuation in the cerebral white matter. There is no intr acranial hemorrhage, acute infarction, or abnormal intracranial mass lesion. The ventricles are meka l in size. There is mild mucosal thickening in the paranasal sinuses. The orbits are normal. The mast oid air cells are normal. IMPRESSION: 1. Stable mild nonspecific cerebral white matter disease, which likely represents chronic small vesse l ischemic disease. Reviewed, dictated and finalized at location A. IMPRESSION: 1. Stable mild nonspecific cerebral white matter disease, which likely represen ts chronic small vessel ischemic disease.
[2020-08-26] MEDS: LORazepam INJ (*CRX) 2 MG/ML VIAL (13:47)
[2020-08-26] MEDS: ONDANSETRON INJ 4 MG/2 ML VIAL IV PUSH ×2 (13:52→14:33)
--- NOTE | 2020-08-26 14:04 | PC.NURSE ---
Agitated and restless. Putting fingers in back of throat to induce vomiting.
[2020-08-26 14:09] LABS: Basophils Percent Auto 0.2 % (0.2-1.2); Eosinophils Percent Auto 0.2 % (0-4.4); Hematocrit 37.4 % (42.0-52.0); Hemoglobin 13.1 g/dL (14.0-18.0); Immature Granulocyte Absolute 0.02 K/mm3 (0.00-0.031); Immature Granulocyte Percent A 0.2 % (0-0.5); Lymphocytes Absolute Auto 1.01 K/mm3 (0.9-3.2); Lymphocytes Percent Auto 12.3 % (18.3-44.2); Mean Corpuscular Volume 91.4 fl (80-100); Mean Platelet Volume 11.9 fl (7.4-10.4); Monocytes Absolute Auto 0.4 K/mm3 (0.1-0.6); Monocytes Percent Auto 4.5 % (2.6-8.5); Neutrophils Absolute Auto 6.8 K/mm3 (1.3-6.7); Neutrophils Percent Auto 82.6 % (45.5-73.1); Platelet Count Result 158 k/mm3 (150-375); Red Blood Count 4.09 M/mm3 (4.6-6.20); Red Cell Distribution Width 14.9 % (11.5-14.5); White Blood Count 8.2 K/mm3 (4.5-10.0)
[2020-08-26 14:14] LABS: Ammonia < 9 umol/L (9-30); Ethanol < 10 mg/dL (<10)
[2020-08-26 14:20] LABS: Alanine Aminotransferase 17 U/L (4-50); Albumin Level 4.5 g/dL (3.5-5.1); Alkaline Phosphatase 102 U/L (38-126); Anion Gap 8 mmol/L (8-16); Aspartate Amino Transferase 31 U/L (17-59); Bilirubin,Total 0.5 mg/dL (0.2-1.3); Blood Urea Nitrogen 8 mg/dL (9-20); Calcium 10.3 mg/dL (8.4-10.2); Carbon Dioxide 25 mmol/L (22-30); Chloride 108 mmol/L (98-107); Estimated Glomerular Filt Rate > 60; Glucose 136 mg/dL (75-110); Potassium 4.2 mmol/L (3.4-5.0); Sodium 141 mmol/L (137-145)
[2020-08-26 14:29] LABS: INR 1.1; Prothrombin Time 14.7 Seconds (11.1-14.7)
[2020-08-26 14:30] LABS: Partial Thromboplastin Time 25.5 SECONDS (22.3-36.8)
[2020-08-26 15:07] LABS: Add Urine Microscopic? YES; Appearance Urine Cloudy (Clear); Bilirubin Urine Negative (Negative); Blood Urine Negative (Negative); Color Urine Yellow (Yellow); Glucose Urine UA Negative (Negative); Ketones Urine Negative (Negative); Leukocyte Esterase Ur Negative LEU/UL (Negative); Nitrate Urine Negative (Negative); Protein Urine 1+ mg/dL (Negative); RBC Urine 0-2 /hpf (0-2); Specific Grav Ur 1.012 (1.001-1.035); Urobilinogen Urine Negative mg/dL (<2.0); WBC Urine 0-3 /hpf
--- NOTE | 2020-08-26 15:08 | PC.NURSE ---
More alert. c/o low abd pain. erp aware.
--- NOTE | 2020-08-26 15:14 | PC.NURSE ---
pt frequently wretches with no emesis noted since arrival.
[2020-08-26 15:16] LABS: Amphetamine Screen Urine Negative (Negative); Barbiturate Screen Urine Negative (Negative); Benzodiazepines Screen Urine Negative (Negative); Cannabinoid Screen Urine Positive (Negative); Cocaine Screen Urine Negative (Negative); Methadone Screen Urine Negative (Negative); Opiate Screen Urine Negative (Negative); Phencyclidine Screen Urine Negative (Negative)
--- NOTE | 2020-08-26 15:18 | PC.NURSE ---
at bedside demanding that doctor come back to room to see her . on the phone cursing and complaining about the erp.
--- NOTE | 2020-08-26 15:48 | PC.NURSE ---
up to desk stating I'm taking him out of here . cursing and throwing monitor leads and urinal in room. slamming chairs and commode in room. removed pt from monitor and yells at nurse to take his fucking IV out . Pt ambulatory out of dept with with steady gait.
--- NOTE | 2020-08-26 15:49 | ED.GENADULT ---
HPI - General Adult General Chief complaint: Seizure Stated complaint: SEIZURE Time Seen by Provider: 08/26/20 13:27 History of Present Illness HPI narrative: Patient is a 54-year-old male with history of seizure disorder and hepatic encephalopathy who presents to the ER with seizure. Patient awake and alert but not oriented and has difficulty following commands. He is only wanting to hug his significant other did not have an IV placed upon initial arrival. Significant other reports patient has been compliant with home medications including Keppra. Denies alcohol withdrawal seizures and reports that seizures are being evaluated by neurology and he is supposed to have an EEG scheduled. Related Data Home Medications Medication Instructions Recorded Confirmed omeprazole 01/17/20 Adults Multivitamin 1 tablet PO DAILY 02/16/20 02/16/20 Calcium 600 + D(3) 1 cap PO BID 02/16/20 02/16/20 gabapentin 800 mg PO QID 02/16/20 02/16/20 levetiracetam [Keppra] 500 mg PO BID 02/16/20 02/16/20 oxycodone 20 mg PO Q4H PRN 02/16/20 02/16/20 tamsulosin [Flomax] 0.4 mg PO HS 02/16/20 02/16/20 tenofovir disoproxil fumarate 300 mg PO DAILY 02/16/20 02/16/20 budesonide-formoterol [Symbicort] INHALATION 08/26/20 oxycodone 08/26/20 Allergies Allergy/AdvReac Type Severity Reaction Status Date / Time hornet venom Allergy Unknown Unknown Verified 08/26/20 13:28 strawberry Allergy Unknown Unknown Verified 08/26/20 13:28 ciprofloxacin Allergy Unknown Verified 08/26/20 13:28 fentanyl Allergy Unknown Verified 08/26/20 13:28 metronidazole AdvReac Unknown Nausea And Verified 08/26/20 13:55 Vomiting Review of Systems Review of Systems: ROS unobtainable: Yes unobtainable due to mental status PMFSH Past Medical History Medical History Chronic pain syndrome Cirrhosis COPD (chronic obstructive pulmonary disease) GERD (gastroesophageal reflux disease) Hepatic encephalopathy Hepatocellular carcinoma Hepatocellular carcinoma History of hepatitis B Hx of peptic ulcer as a child Seizure Seizure Surgical History Surgical History History of cholecystectomy History of tibial fracture requiring surgical repair. Family History Family History Father Hypertension Cerebrovascular accident Myocardial infarct Sibling Hypertension Sibling Hypertension Father Hypertension Cerebrovascular accident Family history of coronary artery disease Sibling Hypertension Social History Social History Social History: Smokes 1/2 ppd since 17yo. He is trying to quit. Lives at home with his and children. He is a full code. Smoking packs per day: 0.5 Smoking cigarettes per day: 10.0 Years smoked: 36 Smoking pack-years: 18.00 Smoking status: Current every day smoker Tobacco type: cigarettes Second hand tobacco smoke exposure: Yes Smoking end date: 03/01/13 Alcohol intake: former Substance use: current Substance use type: marijuana, crack/cocaine and methamphetamine Other substance usage details: has not had alcohol in 16 years/ was never a heavy drinker per Last use: no meth/cocaine in 16 years/uses marijuana currently for pain/appetite Gender identity (if verbalized by the patient): Male Spiritual care concerns: No Agree to blood products: Yes Exam Narrative: Exam Narrative: GENERAL: Anxious-appearing, underweight, and in mild distress. HEAD: Normocephalic, atraumatic. EYES: PERRL and EOMI. ENT: Mucous membranes moist. CHEST: Clear to auscultation. No respiratory distress. HEART: Tachycardic and regular. Normal peripheral pulses. ABDOMEN: Soft, tender palpation right upper quadrant without guarding, nondistended. No CVA tenderness. EXTREMITIES: 5/5 strength in all extr
== END 2020-08-26 15:54 | disposition left against medical advice (07) ==
PROVIDERS: Emergency Provider Emergency Medicine; PCP Family Medicine
DX: R56.9 Unspecified convulsions (principal); R10.11 Right upper quadrant pain; K74.60 Unspecified cirrhosis of liver; J44.9 Chronic obstructive pulmonary disease, unspecified; F17.210 Nicotine dependence, cigarettes, uncomplicated; Z79.891 Long term (current) use of opiate analgesic; Z86.19 Personal history of other infectious and parasitic diseases
CPT/HCPCS: 36415; 70450; 71045; 80053; 80307; 81001; 82140; 85025; 85610; 85730; 96374; 96375; 96376; 99284; J2060; J2405

== ENCOUNTER 2020-09-03 23:14 | Emergency (ER) | payer MEDICARE, MEDICAID, SELFPAY ==
[2020-09-03] MEDS: LORazepam INJ (*CRX) 2 MG/ML VIAL (23:21)
[2020-09-03] MEDS: LORazepam INJ (*CRX) 2 MG/ML VIAL IV PUSH (23:25)
[2020-09-03 23:27] VITALS: BP 135/65; RESP 18; TEMP 36.2; O2SAT 100
[2020-09-03] MEDS: levETIRAcetam 500MG/NACL 100ML 500 MG/100 ML BAG 400 MG IVPB (23:45)
[2020-09-03] MEDS: SODIUM CHLORIDE 0.9% IV 1,000 ML 999 ML IV CONT (23:45)
--- NOTE | 2020-09-04 00:12 | ED.GENADULT ---
HPI - General Adult General Chief complaint: Seizure Stated complaint: SZ Time Seen by Provider: 09/03/20 23:21 History of Present Illness HPI narrative: Patient 54-year-old gentleman who presents the emergency department with chief complaint of seizure. Patient has history of seizure disorder and has history of postictal phases that he becomes noncooperative. Patient today had several seizures prior to arrival to the emergency department and have 1 in the back of the ambulance. Patient takes Keppra and gabapentin patient is not really able to provide much history at this point. Related Data Home Medications Medication Instructions Recorded Confirmed omeprazole 01/17/20 Adults Multivitamin 1 tablet PO DAILY 02/16/20 02/16/20 Calcium 600 + D(3) 1 cap PO BID 02/16/20 02/16/20 gabapentin 800 mg PO QID 02/16/20 02/16/20 levetiracetam [Keppra] 500 mg PO BID 02/16/20 02/16/20 oxycodone 20 mg PO Q4H PRN 02/16/20 02/16/20 tamsulosin [Flomax] 0.4 mg PO HS 02/16/20 02/16/20 tenofovir disoproxil fumarate 300 mg PO DAILY 02/16/20 02/16/20 budesonide-formoterol [Symbicort] INHALATION 08/26/20 oxycodone 08/26/20 Allergies Allergy/AdvReac Type Severity Reaction Status Date / Time hornet venom Allergy Unknown Unknown Verified 08/26/20 13:28 strawberry Allergy Unknown Unknown Verified 08/26/20 13:28 ciprofloxacin Allergy Unknown Verified 08/26/20 13:28 fentanyl Allergy Unknown Verified 08/26/20 13:28 metronidazole AdvReac Unknown Nausea And Verified 08/26/20 13:55 Vomiting Review of Systems Review of Systems: Narrative: A 10 system review of systems was completed on the patient and is negative except for what is stated in the HPI. Nursing and ancillary documentation was reviewed. [facility] Past Medical History Medical History Chronic pain syndrome Cirrhosis COPD (chronic obstructive pulmonary disease) GERD (gastroesophageal reflux disease) Hepatic encephalopathy Hepatocellular carcinoma Hepatocellular carcinoma History of hepatitis B Hx of peptic ulcer as a child Seizure Seizure Surgical History Surgical History History of cholecystectomy History of tibial fracture requiring surgical repair. Family History Family History Father Hypertension Cerebrovascular accident Myocardial infarct Sibling Hypertension Sibling Hypertension Father Hypertension Cerebrovascular accident Family history of coronary artery disease Sibling Hypertension Social History Social History Social History: Smokes 1/2 ppd since 17yo. He is trying to quit. Lives at home with his and children. He is a full code. Smoking packs per day: 0.5 Smoking cigarettes per day: 10.0 Years smoked: 36 Smoking pack-years: 18.00 Smoking status: Current every day smoker Tobacco type: cigarettes Second hand tobacco smoke exposure: Yes Smoking end date: 03/01/13 Alcohol intake: former Substance use: current Substance use type: marijuana, crack/cocaine and methamphetamine Other substance usage details: has not had alcohol in 16 years/ was never a heavy drinker per Last use: no meth/cocaine in 16 years/uses marijuana currently for pain/appetite Gender identity (if verbalized by the patient): Male Spiritual care concerns: No Agree to blood products: Yes Exam Narrative: Exam Narrative: GENERAL: Well-appearing, well-nourished, and in no acute distress. HEAD: Normocephalic, atraumatic. EYES: PERRLA and EOMI. ENT: Nares clear, no rhinorrhea or epistaxis. Mucous membranes moist. NECK: Supple. CHEST: Clear to auscultation. No respiratory distress. HEART: Regular rate and rhythm. No murmur heard. Normal peripheral pulses. ABDOMEN: Soft, nontender, non
[2020-09-04 01:07] LABS: Albumin Level 4.4 g/dL (3.5-5.1); Alkaline Phosphatase 121 U/L (38-126); Anion Gap 19 mmol/L (8-16); Aspartate Amino Transferase 49 U/L (17-59); Bilirubin,Total 0.3 mg/dL (0.2-1.3); Blood Urea Nitrogen 9 mg/dL (9-20); Carbon Dioxide 14 mmol/L (22-30); Chloride 106 mmol/L (98-107); Estimated CRCL calculation 50 ml/min; Estimated Glomerular Filt Rate > 60; Glucose 206 mg/dL (75-110); Magnesium 2.6 mg/dL (1.6-2.3); Potassium 3.7 mmol/L (3.4-5.0); Sodium 139 mmol/L (137-145)
[2020-09-04 01:11] LABS: Basophils Percent Auto 0.2 % (0.2-1.2); Eosinophils Percent Auto 0.1 % (0-4.4); Hematocrit 39.5 % (42.0-52.0); Immature Granulocyte Absolute 0.12 K/mm3 (0.00-0.031); Immature Granulocyte Percent A 0.7 % (0-0.5); Lymphocytes Absolute Auto 0.37 K/mm3 (0.9-3.2); Mean Corpuscular HGB Conc 32.9 g/dl (32-36); Mean Corpuscular Hemoglobin 31.4 pg (26-34); Mean Corpuscular Volume 95.4 fl (80-100); Mean Platelet Volume 10.8 fl (7.4-10.4); Monocytes Absolute Auto 0.7 K/mm3 (0.1-0.6); Neutrophils Absolute Auto 16.8 K/mm3 (1.3-6.7); Platelet Count Result 171 k/mm3 (150-375); Red Blood Count 4.14 M/mm3 (4.6-6.20); Red Cell Distribution Width 14.8 % (11.5-14.5); White Blood Count 18.1 K/mm3 (4.5-10.0)
[2020-09-04 01:12] LABS: Lactic Acid Reflex 9.7 mmol/L (0.7-2.1)
[2020-09-04 01:16] LABS: Alanine Aminotransferase 47 U/L (4-50)
[2020-09-04 01:23] LABS: INR 1.2; Prothrombin Time 14.8 Seconds (11.1-14.7)
[2020-09-04 01:24] LABS: Partial Thromboplastin Time 26.4 SECONDS (22.3-36.8)
[2020-09-04 01:29] VITALS: BP 107/58; PULSE 89; RESP 18; O2SAT 100
[2020-09-04 02:47] LABS: Ammonia 44 umol/L (9-30)
[2020-09-04 03:43] LABS: Lactic Acid Reflex 1.7 mmol/L (0.7-2.1)
[2020-09-04 03:44] VITALS: BP 133/73; PULSE 87; RESP 20; TEMP 36.6; O2SAT 100
[2020-09-04 03:50] LABS: Reflex Lactic Acid Yes or No Add Lactic
[2020-09-04] MEDS: IBUPROFEN 400 MG TABLET 800 MG PO (04:45)
[2020-09-04 05:24] VITALS: BP 118/62; PULSE 72; RESP 18; O2SAT 98
== END 2020-09-04 05:27 | disposition home or self-care (01) ==
PROVIDERS: Emergency Provider Emergency Medicine; PCP Family Medicine
DX: G40.909 Epilepsy, unspecified, not intractable, without status epilepticus (principal); K74.60 Unspecified cirrhosis of liver; G89.4 Chronic pain syndrome; J44.9 Chronic obstructive pulmonary disease, unspecified; K21.9 Gastro-esophageal reflux disease without esophagitis; F17.210 Nicotine dependence, cigarettes, uncomplicated; K72.90 Hepatic failure, unspecified without coma; Z85.05 Personal history of malignant neoplasm of liver; Z86.19 Personal history of other infectious and parasitic diseases
CPT/HCPCS: 36415; 80053; 82140; 83605; 83735; 85025; 85610; 85730; 96365; 96375; 99284; A9270; J1953; J2060; J7030

== ENCOUNTER 2020-09-22 06:13 | Observation (INO) | payer MEDICARE, MEDICAID, SELFPAY ==
[2020-09-22] VITALS (21 sets, daily range): BP systolic 100–173; BP diastolic 60–86; PULSE 68–109; RESP 18–45; TEMP 36.1–36.8; O2SAT 96–100; BMI 17.2
--- NOTE | ~2020-09-22 | CT_ITS ---
EXAMINATION: CT abdomen pelvis w con DATE: 09/22/2020 08:25 INDICATION: Right upper quadrant abdominal pain TECHNIQUE: Computed tomography (CT) of the abdomen and pelvis was performed with 100 cc Omnipaque 350 intravenous contrast (The patient was postictal and combative and pulled the IV out during the proce dure, not receiving the full contrast medium dose.) Automated exposure control and iterative reconstr uction technique were employed. Exam dose: 333.36 mGy-cm total exam DLP. COMPARISON: 07/10/2020 CT abdomen pelvis FINDINGS: The lung bases are clear of infiltrate or consolidation. Heart size is normal. There is surface nodularity of liver consistent with cirrhosis. Liver detail is limited due to streak artifact from the overlapping upper extremities. There is no ap parent significant change of the left hepatic ill-defined liver mass and associated ductal dilatation of the left hepatic lobe. Consider cholangiocarcinoma, hepatocellular carcinoma, less likely metasta tic disease. There is chronic irregular hypoattenuation in capsular retraction at the upper posterior right hepati c lobe. Status post cholecystectomy. Borderline splenomegaly. Varices are noted. No pancreatic mass lesion, calcification or ductal dilatation is detected. Normal morphology of the adrenal glands. No renal mass lesion or urinary tract calculus or hydroureteronephrosis. There is atherosclerotic calcification of the abdominal aorta but no aneurysm. No intraperitoneal or retroperitoneal or pelvic mass lesion or adenopathy or ascites is noted otherwise. There is prostate enlargement and calcification and moderate diffuse thickening of the urinary bladde r wall. There is prominent of fecal material within the colon but no evidence of bowel obstruction. No intrap eritoneal free air. No suspicious osteolytic or osteoblastic lesions are detected. Severe degenerative disc disease at L4-5. IMPRESSION: Cirrhosis, varices, borderline splenomegaly Persistent left hepatic mass with left hepatic bile duct dilatation; diffusion diagnosis includes Ayaz etra carcinoma, hepatocellular carcinoma, less likely metastatic disease Stable posterior right upper hepatic lobe irregular hypoattenuation in capsular retraction, not signi ficantly changed since 07/10/2020 Prostate enlargement and calcifications Reviewed, dictated and finalized at [facility] Reviewed, dictated and finalized at [facility]. IMPRESSION: Cirrhosis, varices, borderline splenomegaly Persistent left hepatic mass with left hepatic bile duct dilatation; diffusion diagnosis includes Kal[place] carcinoma, hepatocellular carcinoma, less likely met astatic disease Stable posterior right upper hepatic lobe irregular hypoattenuation in capsular retraction, not significantly changed since 07/10/2020 Prostate enlargement and calcifications
--- NOTE | ~2020-09-22 | CT_ITS ---
EXAMINATION: CT brain wo con DATE: 09/22/2020 08:26 INDICATION: Recurrent seizure TECHNIQUE: Computed tomography (CT) of the head was performed without intravenous contrast. The mA wa s adjusted according to patient size. Iterative reconstruction technique was employed. Exam dose: 60 5.33 mGy-cm total exam DLP. COMPARISON: 08/26/2020 CT brain FINDINGS: No intracranial mass lesion or hemorrhage or cerebrovascular accident is evident. No midlin e shift or mass effect effect. Bilateral carotid siphon internal carotid artery calcifications are noted. Stable mild nonspecific ce rebral white matter disease, likely due to chronic small vessel ischemic changes No subdural or epidural hematoma is detected. No fracture or bone destruction of the cranial vault. The mastoid air cells are normally developed an d aerated. IMPRESSION: Cerebral atherosclerosis and stable mild nonspecific cerebral white matter disease, like ly due to chronic small vessel ischemic changes No acute intracranial finding or significant change since 08/26/2020 Reviewed, dictated and finalized at [facility] Reviewed, dictated and finalized at [facility]. IMPRESSION: Cerebral atherosclerosis and stable mild nonspecific cerebral whit e matter disease, likely due to chronic small vessel ischemic changes No acute intracranial finding or significant change since 08/26/2020
--- NOTE | 2020-09-22 06:22 | PC.NURSE ---
Patient had 2 15sec sz, tonic clonic. Patient postictal. IV access obtained, 20g Right AC.
--- NOTE | 2020-09-22 06:27 | PC.NURSE ---
VORB give 2mg ativan IVP per .
[2020-09-22] MEDS: LORazepam INJ (*CRX) 2 MG/ML VIAL ×3 (06:30→07:31)
--- NOTE | 2020-09-22 06:31 | PC.NURSE ---
Patient's bedside glucose 191.
[2020-09-22] MEDS: SODIUM CHLORIDE 0.9% IV 1,000 ML 999 ML IV CONT ×2 (06:42→08:26)
--- NOTE | 2020-09-22 07:00 | PC.NURSE ---
charted clean catch urine on wrong pt. Not letting this RN amend or edit or undo.
[2020-09-22 07:03] LABS: Basophils Percent Auto 0.4 % (0.2-1.2); Eosinophils Absolute Auto 0.1 K/mm3 (0-0.3); Eosinophils Percent Auto 0.7 % (0-4.4); Hematocrit 44.3 % (42.0-52.0); Hemoglobin 13.8 g/dL (14.0-18.0); Immature Granulocyte Absolute 0.06 K/mm3 (0.00-0.031); Immature Granulocyte Percent A 0.5 % (0-0.5); Lymphocytes Absolute Auto 1.92 K/mm3 (0.9-3.2); Lymphocytes Percent Auto 17.1 % (18.3-44.2); Mean Corpuscular HGB Conc 31.2 g/dl (32-36); Mean Corpuscular Hemoglobin 31.6 pg (26-34); Mean Corpuscular Volume 101.4 fl (80-100); Mean Platelet Volume 11.2 fl (7.4-10.4); Monocytes Absolute Auto 0.7 K/mm3 (0.1-0.6); Monocytes Percent Auto 6.4 % (2.6-8.5); Neutrophils Absolute Auto 8.4 K/mm3 (1.3-6.7); Neutrophils Percent Auto 74.9 % (45.5-73.1); Platelet Count Result 270 k/mm3 (150-375); Red Blood Count 4.37 M/mm3 (4.6-6.20); Red Cell Distribution Width 15.2 % (11.5-14.5); White Blood Count 11.2 K/mm3 (4.5-10.0)
[2020-09-22 07:14] LABS: Alanine Aminotransferase 28 U/L (4-50); Albumin Level 4.8 g/dL (3.5-5.1); Alkaline Phosphatase 130 U/L (38-126); Ammonia 204 umol/L (9-30); Anion Gap 23 mmol/L (8-16); Aspartate Amino Transferase 42 U/L (17-59); Bilirubin,Total 0.4 mg/dL (0.2-1.3); Blood Urea Nitrogen 8 mg/dL (9-20); Calcium 11.3 mg/dL (8.4-10.2); Carbon Dioxide 16 mmol/L (22-30); Chloride 113 mmol/L (98-107); Estimated Glomerular Filt Rate > 60; Glucose 199 mg/dL (65-110); Magnesium 2.4 mg/dL (1.6-2.3); Potassium 5.6 mmol/L (3.4-5.0); Sodium 152 mmol/L (137-145)
[2020-09-22 07:16] LABS: INR 1.1; Prothrombin Time 14.1 Seconds (11.1-14.7)
[2020-09-22 07:17] LABS: Partial Thromboplastin Time 25.8 SECONDS (22.3-36.8)
--- NOTE | 2020-09-22 07:19 | ED.SEIZURE ---
HPI - Seizure General Chief Complaint: Seizure Stated Complaint: seizure Time Seen by Provider: 09/22/20 07:04 History of Present Illness HPI Narrative: 55 yo male w/ h/o cirrhosis, seizure, hepatocellular carcinoma presents to the ED for seizure. He has reportedly had at least 4 seizures this morning. No return to baseline between seizures. He is on keppra for his seizures, but he has yet to see a neurologist. His liver doctor is at [facility]. He is on the transplant list. His says that he has been having a lot of liver pain recently. History limited by mental status. Seizure History: Yes Related Data Home Medications Medication Instructions Recorded Confirmed omeprazole 01/17/20 Adults Multivitamin 1 tablet PO DAILY 02/16/20 02/16/20 Calcium 600 + D(3) 1 cap PO BID 02/16/20 02/16/20 gabapentin 800 mg PO QID 02/16/20 02/16/20 levetiracetam [Keppra] 500 mg PO BID 02/16/20 02/16/20 oxycodone 20 mg PO Q4H PRN 02/16/20 02/16/20 tamsulosin [Flomax] 0.4 mg PO HS 02/16/20 02/16/20 tenofovir disoproxil fumarate 300 mg PO DAILY 02/16/20 02/16/20 budesonide-formoterol [Symbicort] INHALATION 08/26/20 ondansetron 09/22/20 Allergies Allergy/AdvReac Type Severity Reaction Status Date / Time hornet venom Allergy Unknown Unknown Verified 09/22/20 11:46 strawberry Allergy Unknown Unknown Verified 09/22/20 11:46 ciprofloxacin Allergy Unknown Verified 09/22/20 11:46 fentanyl Allergy Unknown Verified 09/22/20 11:46 metronidazole AdvReac Unknown Nausea And Verified 09/22/20 11:46 Vomiting Review of Systems Review of Systems: ROS unobtainable: Yes unobtainable due to mental status PMFSH Past Medical History Medical History Chronic pain syndrome Cirrhosis COPD (chronic obstructive pulmonary disease) GERD (gastroesophageal reflux disease) Hepatic encephalopathy Hepatocellular carcinoma Hepatocellular carcinoma History of hepatitis B Hx of peptic ulcer as a child Seizure Seizure Surgical History Surgical History History of cholecystectomy History of tibial fracture requiring surgical repair. Family History Family History Father Hypertension Cerebrovascular accident Myocardial infarct Sibling Hypertension Sibling Hypertension Father Hypertension Cerebrovascular accident Family history of coronary artery disease Sibling Hypertension Social History Social History Social History: Smokes 1/2 ppd since 17yo. He is trying to quit. Lives at home with his and children. He is a full code. Smoking packs per day: 0.5 Smoking cigarettes per day: 10.0 Years smoked: 36 Smoking pack-years: 18.00 Smoking status: Current every day smoker Tobacco type: cigarettes Second hand tobacco smoke exposure: Yes Smoking end date: 03/01/13 Alcohol intake: former Substance use: current Substance use type: marijuana, crack/cocaine and methamphetamine Other substance usage details: has not had alcohol in 16 years/ was never a heavy drinker per Last use: no meth/cocaine in 16 years/uses marijuana currently for pain/appetite Gender identity (if verbalized by the patient): Male Spiritual care concerns: No Agree to blood products: Yes Exam Const: General: no acute distress and ill appearing Nutritional Appearance: thin Orientation/consciousness: confusion HENMT: Mouth: Yes dry mucous membranes Eyes: Pupils: Equal, round and reactive pupils present Neck: Neck: normal visual inspection Resp: Effort & Inspection: normal respiratory effort Auscultation: clear to auscultation bilaterally Cardio: Rate: tachycardic Rhythm: regular rhythm Skin: General skin exam: normal color Neuro: General: moves all extremities Other: agitated and restless. No
--- NOTE | 2020-09-22 07:29 | PC.NURSE ---
Assumed care of pt, pt is agitated and trying to get out of bed, tech at bedside, at bedside. EDP at bedside, given 2MG Ativan per EDP VORB. SZ pads in place. VSS. Pt cont trying to get up, unable to go to CT at this time. NS infusing.
[2020-09-22] MEDS: levETIRAcetam 1000MG/NACL100ML 1,000 MG/100 ML BAG 400 MG IVPB (07:35)
[2020-09-22 07:51] LABS: Add Urine Microscopic? YES; Appearance Urine Clear (Clear); Bilirubin Urine Negative (Negative); Blood Urine Negative (Negative); Color Urine Yellow (Yellow); Glucose Urine UA Negative (Negative); Ketones Urine Negative (Negative); Leukocyte Esterase Ur Trace LEU/UL (Negative); Mucus Urine Rare /lpf; Nitrate Urine Negative (Negative); Protein Urine 2+ mg/dL (Negative); RBC Urine 0-2 /hpf (0-2); Specific Grav Ur 1.019 (1.001-1.035); Squamous Epithelial Cell Urine Rare /hpf (Few); Urobilinogen Urine Negative mg/dL (<2.0); WBC Urine 0-3 /hpf
--- NOTE | 2020-09-22 07:56 | ECG_ITS ---
Measurements Intervals [place] Rate: 101 P: 82 CA: 134 QRS: 52 QRSD: 89 T: 83 QT: 355 QTc: 461 Interpretive Statements SINUS TACHYCARDIA POSSIBLE LEFT ATRIAL ENLARGEMENT MINIMAL Q WAVES- LATERAL LEADS BASELINE ARTIFACT- II, III, AVR, AVL, AVF, V2-V6 BORDERLINE ECG Electronically Signed On 09-22-2020 16:17:09 CDT by Davidson Juarez D.O.
--- NOTE | 2020-09-22 08:04 | PC.NURSE ---
Pt to CT scan via stretcher on tele monitor at this time.
[2020-09-22 08:05] LABS: Amphetamine Screen Urine Negative (Negative); Barbiturate Screen Urine Negative (Negative); Benzodiazepines Screen Urine Negative (Negative); Cannabinoid Screen Urine Positive (Negative); Cocaine Screen Urine Negative (Negative); Methadone Screen Urine Negative (Negative); Opiate Screen Urine Negative (Negative); Phencyclidine Screen Urine Negative (Negative)
[2020-09-22] MEDS: LACTULOSE 20 GM/30 ML UDC PO (09:16)
--- NOTE | 2020-09-22 09:28 | PC.NURSE ---
Per at bedside pt was trying to throw up and has emesis bag in hand. EDP Dr May made aware, gave VORB for Zofran 4MG IVP.
[2020-09-22] MEDS: ONDANSETRON INJ 4 MG/2 ML VIAL (09:29)
[2020-09-22] MEDS: ONDANSETRON INJ 4 MG/2 ML VIAL IV PUSH ×2 (13:45→18:16)
--- NOTE | 2020-09-22 13:57 | PC.NURSE ---
Continues to have dry heaves, pt will stick index finger down throat to help get it up .
--- NOTE | 2020-09-22 14:54 | PM.IMHP ---
H&P: HPI History of Present Illness Date/Time: 09/22/20 14:54 Chief Complaint: Seizure Narrative: THIS IS A 55-YEAR-OLD MALE WITH PAST MEDICAL HISTORY SIGNIFICANT FOR HEPATIC CIRRHOSIS, HEPATITIS-C, COPD. PATIENT IS ON TRANSPLANT LIST FOR LIVER TRANSPLANT. HE WAS BROUGHT TO THE EMERGENCY ROOM AFTER HE HAD A SEIZURE WITNESSED BY HIS . IS BY [facility] SIDE MOST OF THE HISTORY HAS BEEN OBTAINED FROM EMERGENCY ROOM MEDICAL RECORDS WELL PRIOR RECORDS AND . PATIENT WAS DRY HEAVING AT THE TIME OF MY VISIT. ACCORDING TO SHE NOTICE THAT HE HAD BEEN MORE TIRED THAN USUAL BUT DID NOT NOTICE ANY OTHER UNUSUAL EVENTS IN THE IN THE DAYS LEADING UP TO TODAY. PRELIMINARY WORKUP WAS SIGNIFICANT FOR ELEVATED SODIUM, ELEVATED AMMONIA LEVELS. HE WAS LOADED WITH KEPPRA IN THE EMERGENCY ROOM. Review of Systems Review of Systems: ROS unobtainable: Yes unobtainable due to mental status PMFSH Past Medical History Medical History Chronic pain syndrome Cirrhosis COPD (chronic obstructive pulmonary disease) GERD (gastroesophageal reflux disease) Hepatic encephalopathy Hepatocellular carcinoma Hepatocellular carcinoma History of hepatitis B Hx of peptic ulcer as a child Seizure Seizure Surgical History Surgical History History of cholecystectomy History of tibial fracture requiring surgical repair. Family History Family History Father Hypertension Cerebrovascular accident Myocardial infarct Sibling Hypertension Sibling Hypertension Father Hypertension Cerebrovascular accident Family history of coronary artery disease Sibling Hypertension Social History Social History Social History: Smokes 1/2 ppd since 17yo. He is trying to quit. Lives at home with his and children. He is a full code. Smoking packs per day: 0.5 Smoking cigarettes per day: 10.0 Years smoked: 36 Smoking pack-years: 18.00 Smoking status: Current every day smoker Tobacco type: cigarettes Second hand tobacco smoke exposure: Yes Smoking end date: 03/01/13 Alcohol intake: former Substance use: current Substance use type: marijuana, crack/cocaine and methamphetamine Other substance usage details: has not had alcohol in 16 years/ was never a heavy drinker per Last use: no meth/cocaine in 16 years/uses marijuana currently for pain/appetite Gender identity (if verbalized by the patient): Male Spiritual care concerns: No Agree to blood products: Yes Meds Home Medications and Allergies Home Medications Medication Instructions Recorded Confirmed Type omeprazole 01/17/20 History Adults Multivitamin 1 tablet PO DAILY 02/16/20 02/16/20 History Calcium 600 + D(3) 1 cap PO BID 02/16/20 02/16/20 History gabapentin 800 mg PO QID 02/16/20 02/16/20 History levetiracetam [Keppra] 500 mg PO BID 02/16/20 02/16/20 History oxycodone 20 mg PO Q4H PRN 02/16/20 02/16/20 History tamsulosin [Flomax] 0.4 mg PO HS 02/16/20 02/16/20 History tenofovir disoproxil fumarate 300 mg PO DAILY 02/16/20 02/16/20 History chlordiazepoxide HCl 25 mg PO Q12H PRN #10 cap 02/18/20 Rx lactulose 10 g PO DAILY #500 ml 02/18/20 Rx budesonide-formoterol [Symbicort] INHALATION 08/26/20 History ondansetron 09/22/20 History Allergies Allergy/AdvReac Type Severity Reaction Status Date / Time hornet venom Allergy Unknown Unknown Verified 09/22/20 11:46 strawberry Allergy Unknown Unknown Verified 09/22/20 11:46 ciprofloxacin Allergy Unknown Verified 09/22/20 11:46 fentanyl Allergy Unknown Verified 09/22/20 11:46 metronidazole AdvReac Unknown Nausea And Verified 09/22/20 11:46 Vomiting Vital Signs Vital Signs - 24 hr 09/22/20 06:10 09/22/20 06:27 09/22/20 07:29 Temperature 98.0 F Pulse R
[2020-09-22] MEDS: MORPHINE SULFATE (*CRX) 2 MG/ML INJ IV PUSH (17:22)
[2020-09-22] MEDS: DEXTROSE 5% 1,000 ML 1,000 ML 100 ML IV CONT (18:15)
--- NOTE | 2020-09-22 18:51 | ADMGEN ---
This patient, Ronan Baez, was admitted to IMU Room 206-02. Patient/family oriented to hospital policies and general routines including ID bracelet, bed and alarms, visiting hours, pain management, procedures, bathroom and other care routines, personal items, smoking policy, room service/diet, and visiting hours. Information on how to activate the Rapid Response Team has been discussed. Patient/Family are encouraged to report perceived risks to care and to ask questions if they do not understand what they are told or what they should do.
--- NOTE | 2020-09-22 18:55 | PC.NURSE ---
Heather () was called by this nurse and was unable to be reached to help give information for admission.
[2020-09-22] MEDS: rifAXIMin 550 MG TABLET PO (21:00)
[2020-09-23] VITALS: BP 122/55; PULSE 77; PULSE 82; RESP 20; TEMP 36.1; O2SAT 97
[2020-09-23 02:00] VITALS: PULSE 73
[2020-09-23 04:00] VITALS: BP 132/74; PULSE 74; PULSE 77; RESP 18; TEMP 36.5; O2SAT 96
[2020-09-23] MEDS: DEXTROSE 5% 1,000 ML 1,000 ML 100 ML IV CONT (04:29)
[2020-09-23 06:00] VITALS: PULSE 77
[2020-09-23 08:00] VITALS: BP 129/72; PULSE 86; PULSE 87; RESP 12; TEMP 37; O2SAT 100
--- NOTE | 2020-09-23 08:14 | PC.NURSE ---
Called Dr. Wolf to inform him that patient is getting angry and stating that he wants to go home. Patient is demanding that I call him and let him out of here because you can't just keep me here. This isn't a damn jail. [facility] Wolf states that he will come see that patient.
[2020-09-23 09:18] LABS: Hematocrit 35.9 % (42.0-52.0); Immature Platelet Fraction Pct 4.6 % (0.9-11.2); Mean Corpuscular HGB Conc 33.4 g/dl (32-36); Mean Corpuscular Hemoglobin 31.3 pg (26-34); Mean Corpuscular Volume 93.7 fl (80-100); Mean Platelet Volume 9.9 fl (7.4-10.4); Platelet Count Result 132 k/mm3 (150-375); Red Blood Count 3.83 M/mm3 (4.6-6.20); White Blood Count 6.4 K/mm3 (4.5-10.0)
[2020-09-23 09:27] LABS: Alanine Aminotransferase 21 U/L (4-50); Albumin Level 3.7 g/dL (3.5-5.1); Alkaline Phosphatase 89 U/L (38-126); Anion Gap 6 mmol/L (8-16); Aspartate Amino Transferase 36 U/L (17-59); Bilirubin,Total 0.7 mg/dL (0.2-1.3); Blood Urea Nitrogen 5 mg/dL (9-20); Carbon Dioxide 23 mmol/L (22-30); Chloride 110 mmol/L (98-107); Estimated CRCL calculation 75 ml/min; Estimated Glomerular Filt Rate > 60; Glucose 103 mg/dL (65-110); Magnesium 1.7 mg/dL (1.6-2.3); Potassium 3.4 mmol/L (3.4-5.0); Sodium 139 mmol/L (137-145)
[2020-09-23 09:27] LABS: Ammonia < 9 umol/L (9-30)
[2020-09-23] MEDS: LACTULOSE 20 GM/30 ML UDC PO (09:36)
[2020-09-23] MEDS: rifAXIMin 550 MG TABLET PO (09:36)
[2020-09-23] MEDS: PANTOPRAZOLE 40 MG TABLET PO (09:36)
[2020-09-23] MEDS: GABAPENTIN 400 MG CAPSULE 800 MG PO (09:40)
[2020-09-23] MEDS: MULTIVITAMINS /C LUTEIN (CENTRUM SILVER) TABLET *BKC 1 TAB PO (09:41)
[2020-09-23] MEDS: levETIRAcetam 500 MG TABLET PO (09:41)
--- NOTE | 2020-09-23 09:45 | PC.NURSE ---
Patient left AMA at 0943 with his present. Spoke with Dr. Wolf who stated to give patient all of his medications prior to discharge if he would accept them. Dr. Wolf stated to not give any pain medication or Librium prior to discharge.
--- NOTE | 2020-09-23 11:20 | PM.DS ---
DS: Admitting Diagnosis Admitting Diagnosis Chief Complaint: Seizure DS: Discharge Diagnosis Discharge Diagnosis (1) Seizure: Code(s): R56.9 - Unspecified convulsions Status: Acute Assessment and Plan: LOADED WITH KEPPRA LIKELY SECONDARY TO HYPERNATREMIA AND HYPERAMMONEMIA (2) Acute hypernatremia: Code(s): E87.0 - Hyperosmolality and hypernatremia Status: Acute Assessment and Plan: STARTED D5W CONTINUE TO MONITOR (3) Acute hepatic encephalopathy: Code(s): K72.00 - Acute and subacute hepatic failure without coma Status: Acute Assessment and Plan: LACTULOSE NEEDED (4) Hyperammonemia: Code(s): E72.20 - Disorder of urea cycle metabolism, unspecified Status: Acute Assessment and Plan: CONTINUE LACTULOSE (5) COPD (chronic obstructive pulmonary disease): Code(s): J44.9 - Chronic obstructive pulmonary disease, unspecified Status: Acute Assessment and Plan: NOT ACTIVELY WHEEZING DS: Summary Hospital Course Reason for hospitalization: Chief Complaint: Seizure Narrative: THIS IS A 55-YEAR-OLD MALE WITH PAST MEDICAL HISTORY SIGNIFICANT FOR HEPATIC CIRRHOSIS, HEPATITIS-C, COPD. PATIENT IS ON TRANSPLANT LIST FOR LIVER TRANSPLANT. HE WAS BROUGHT TO THE EMERGENCY ROOM AFTER HE HAD A SEIZURE WITNESSED BY HIS . IS BY [facility] SIDE MOST OF THE HISTORY HAS BEEN OBTAINED FROM EMERGENCY ROOM MEDICAL RECORDS WELL PRIOR RECORDS AND . PATIENT WAS DRY HEAVING AT THE TIME OF MY VISIT. ACCORDING TO SHE NOTICE THAT HE HAD BEEN MORE TIRED THAN USUAL BUT DID NOT NOTICE ANY OTHER UNUSUAL EVENTS IN THE IN THE DAYS LEADING UP TO TODAY. PRELIMINARY WORKUP WAS SIGNIFICANT FOR ELEVATED SODIUM, ELEVATED AMMONIA LEVELS. HE WAS LOADED WITH KEPPRA IN THE EMERGENCY ROOM. Hospital Course: Left AMA Time Spent with Patient Time attestation: Total time spent providing and/or coordinating discharge services: left AMA DS: Data Data Completed and Pending Labs on day of discharge: Labs from last 24 hours 09/23/20 09/23/20 09/23/20 09:04 09:03 09:03 WBC 6.4 RBC 3.83 L Hgb 12.0 L Hct 35.9 L MCV 93.7 D MCH 31.3 MCHC 33.4 RDW 15.0 H Plt Count 132 L D MPV 9.9 % Immature Plt Fraction 4.6 Sodium 139 Potassium 3.4 Chloride 110 H Carbon Dioxide 23 Anion Gap 6 L BUN 5 L Creatinine 0.70 Estim Creat Clear Calc 75 Estimated GFR > 60 Glucose 103 Calcium 9.0 Magnesium 1.7 Total Bilirubin 0.7 AST 36 ALT 21 Alkaline Phosphatase 89 Ammonia < 9 L Total Protein 7.0 Albumin 3.7 Discharge Plan Discharge Consulting providers: Huey Hall ; Alen Hernandez ; Eliud Swartz V. ; Ruiz Horton ; Davidson Juarez Patient Disposition: Left Against Medical Advice Discharge Medications: No Action budesonide-formoterol [Symbicort] 160-4.5 mcg/actuation HFA aerosol inhaler 2 puff INHALATION BID RF: 0 ondansetron 8 mg tablet,disintegrating 8 mg translingual Q8H PRN (Reason: Nausea) RF: 0 albuterol sulfate 2.5 mg /3 mL (0.083 %) solution for nebulization See Rx Instructions .ROUTE .COMPLEX RF: 0 levetiracetam [Keppra] 750 mg tablet 750 mg PO BID Qty: 60 RF: 0 omeprazole 40 mg capsule,delayed release(DR/EC) 40 mg PO DAILY RF: 0 levetiracetam [Keppra] 500 mg Tablet 500 mg PO BID RF: 0 tamsulosin [Flomax] 0.4 mg Capsule 0.4 mg PO HS RF: 0 gabapentin 800 mg Tablet 800 mg PO QID RF: 0 tenofovir disoproxil fumarate 300 mg Tablet 300 mg PO DAILY RF: 0 Calcium 600 + D(3) 600 mg calcium- 200 unit Capsule 1 cap PO BID RF: 0 oxycodone 20 mg Tablet 20 mg PO Q4H PRN (Reason: Pain) RF: 0 Adults Multivitamin 18 mg iron-400 mcg-25 mcg Tablet 1 tablet PO DAILY RF: 0 Date of admission: 09/22/20 12:59 Primary Care Provider: Raad,Jazmin Turpin Admitting Provider: Cisco Austin
== END 2020-09-23 09:43 | disposition left against medical advice (07) ==
LOC: ANHED 12:07 → ANHIMU 18:58
PROVIDERS: General Practice; Admitting Provider Internal Medicine; Emergency Provider Emergency Medicine; PCP Family Medicine; Visit Provider Family Medicine
DX: R56.9 Unspecified convulsions (principal); K72.00 Acute and subacute hepatic failure without coma; E87.5 Hyperkalemia; E87.0 Hyperosmolality and hypernatremia; E86.0 Dehydration; E72.20 Disorder of urea cycle metabolism, unspecified; K74.60 Unspecified cirrhosis of liver; B18.2 Chronic viral hepatitis C; G89.4 Chronic pain syndrome; J44.9 Chronic obstructive pulmonary disease, unspecified; K21.9 Gastro-esophageal reflux disease without esophagitis; F17.210 Nicotine dependence, cigarettes, uncomplicated; Z79.891 Long term (current) use of opiate analgesic; F12.90 Cannabis use, unspecified, uncomplicated; Z79.51 Long term (current) use of inhaled steroids
CPT/HCPCS: 36415; 70450; 74177; 80053; 80307; 81001; 82140; 83735; 85025; 85027; 85055; 85610; 85730; 93005; 96361; 96365; 96375; 96376; 99285; A9270; G0378; J1953; J2060; J2270; J2405; J3010; J7030; J7070; Q9967

== ENCOUNTER 2020-09-27 06:13 | Emergency (ER) | payer MEDICARE, MEDICAID, SELFPAY ==
[2020-09-27] VITALS (9 sets, daily range): BP systolic 112–138; BP diastolic 57–75; PULSE 71–94; RESP 18–30; TEMP 36.4; O2SAT 94–100
--- NOTE | ~2020-09-27 | XR_ITS ---
EXAMINATION: XR chest 1V portable EXAM DATE: 09/27/2020 08:02 INDICATION: multiple seizures today, HX COPD, hepatitis B. TECHNIQUE: Portable AP frontal chest x-ray was obtained. Comparison is made to prior examination from 08/26/2020. FINDINGS: Right apical scarring. The lungs are otherwise clear. There are no pleural effusions. The cardiomediastinal silhouette is within normal limits. There is no pneumothorax suspected. The bone s and soft tissues are unremarkable. IMPRESSION: No acute cardiopulmonary findings. o Reviewed, dictated and finalized at location D.
--- NOTE | ~2020-09-27 | CT_ITS ---
EXAMINATION: CT brain wo con EXAM DATE: 09/27/2020 12:03 INDICATION: Headache and seizures. TECHNIQUE: Spiral CT of the head was performed without contrast. Axial, coronal and sagittal images were reviewed. The dose-length product (DLP) for this examination was 605.33 mGy-cm. The exposure w as tailored according to patient size, and iterative reconstruction (ASIR) was used as additional dos e reduction technique. Comparison is made to prior examination from 09/22/2020. FINDINGS: There is no acute intraparenchymal hemorrhage. No evidence of intraparenchymal brain mass lesion. No evidence of acute infarction. There is no mass effect or midline shift. The ventricles are normal in size. There are no extra-axial collections. There are no acute calvarial fractures. T he orbits are unremarkable. Soft tissue is unremarkable. The visualized sinuses and mastoid air bob ls are well aerated. IMPRESSION: 1. No acute intracranial findings. Reviewed, dictated and finalized at location B.
--- NOTE | 2020-09-27 06:35 | ECG_ITS ---
Measurements Intervals [place] Rate: 96 P: 72 MD: 108 QRS: 40 QRSD: 90 T: 65 QT: 356 QTc: 451 Interpretive Statements SINUS RHYTHM WITH SHORT MD INTERVAL POSSIBLE LEFT ATRIAL ENLARGEMENT INCOMPLETE RIGHT BUNDLE BRANCH BLOCK BASELINE ARTIFACT- II, III, AVR, AVF, V3-V6 BORDERLINE ECG Electronically Signed On 09-27-2020 7:30:17 CDT by Davidson Juarez D.O.
--- NOTE | 2020-09-27 06:37 | PC.NURSE ---
Attempted to call report to IMU at this time. Was informed receiving nurse is in isolation room and will call back when available.
[2020-09-27] MEDS: LORazepam INJ (*CRX) 2 MG/ML VIAL IV PUSH (06:55)
[2020-09-27 07:03] LABS: Glucose Point of Care 193 mg/dl (65-105)
--- NOTE | 2020-09-27 07:30 | PC.NURSE ---
Bed alarm placed on bed at this time, patient continue to get out of bed without assistance to pee.
[2020-09-27 07:32] LABS: Basophils Percent Auto 0.3 % (0.2-1.2); Eosinophils Absolute Auto 0.1 K/mm3 (0-0.3); Eosinophils Percent Auto 0.5 % (0-4.4); Hematocrit 39.3 % (42.0-52.0); Hemoglobin 12.6 g/dL (14.0-18.0); Immature Granulocyte Absolute 0.05 K/mm3 (0.00-0.031); Immature Granulocyte Percent A 0.5 % (0-0.5); Lymphocytes Absolute Auto 1.19 K/mm3 (0.9-3.2); Lymphocytes Percent Auto 11.9 % (18.3-44.2); Mean Corpuscular HGB Conc 32.1 g/dl (32-36); Mean Corpuscular Volume 96.6 fl (80-100); Monocytes Absolute Auto 0.2 K/mm3 (0.1-0.6); Monocytes Percent Auto 2.3 % (2.6-8.5); Neutrophils Absolute Auto 8.5 K/mm3 (1.3-6.7); Neutrophils Percent Auto 84.5 % (45.5-73.1); Platelet Count Result 202 k/mm3 (150-375); Red Blood Count 4.07 M/mm3 (4.6-6.20); Red Cell Distribution Width 14.9 % (11.5-14.5)
[2020-09-27 07:38] LABS: Add Urine Microscopic? YES; Appearance Urine Clear (Clear); Bilirubin Urine Negative (Negative); Blood Urine Negative (Negative); Color Urine Yellow (Yellow); Glucose Urine UA Negative (Negative); Ketones Urine Negative (Negative); Leukocyte Esterase Ur Negative LEU/UL (Negative); Nitrate Urine Negative (Negative); Protein Urine 2+ mg/dL (Negative); Specific Grav Ur 1.018 (1.001-1.035); Squamous Epithelial Cell Urine Rare /hpf (Few); Urobilinogen Urine Negative mg/dL (<2.0); WBC Urine 0-3 /hpf
[2020-09-27 07:48] LABS: INR 1.1; Partial Thromboplastin Time 27.2 SECONDS (22.3-36.8); Prothrombin Time 14.2 Seconds (11.1-14.7)
[2020-09-27 07:49] LABS: Alanine Aminotransferase 39 U/L (4-50); Albumin Level 4.8 g/dL (3.5-5.1); Alkaline Phosphatase 103 U/L (38-126); Anion Gap 25 mmol/L (8-16); Aspartate Amino Transferase 44 U/L (17-59); Bilirubin,Total 0.6 mg/dL (0.2-1.3); Blood Urea Nitrogen 9 mg/dL (9-20); Calcium 9.5 mg/dL (8.4-10.2); Carbon Dioxide 10 mmol/L (22-30); Chloride 112 mmol/L (98-107); Estimated Glomerular Filt Rate > 60; Glucose 187 mg/dL (65-110); Potassium 3.8 mmol/L (3.4-5.0); Sodium 147 mmol/L (137-145)
[2020-09-27] MEDS: SODIUM CHLORIDE 0.9% IV 1,000 ML 999 ML IV CONT (07:53)
[2020-09-27] MEDS: levETIRAcetam IV 750 MG in DEXTROSE 5% 100 ML 430 MG IVPB (07:53)
[2020-09-27 07:56] LABS: Alveolar/Arterial O2 Gradient 47.1 mmHg; Base Excess ABG -4.4 mEq/l (+/-2.0); Carboxyhemoglobin 0.5 % THb (0-2.0); Fractional Inspired Oxygen 21 %; Methemoglobin ABG 0.2 %THb (0-1.5); Oxygen Content ABG 16.2 %vol (16.0-22.0); Oxygen Saturation ABG 91.1 % (95.0-100.0); Oxyhemoglobin 90.1 % THb (90.0-100.0); PCO2 ABG 34.9 mmHg (35.0-45.0); PO2 ABG 60.8 mmHg (80.0-100.0); Reduced Hemoglobin 9.2 %THb (0-5.0); Total Hemoglobin 12.8 g/dL (12.0-18.0); pH ABG 7.377 (7.350-7.450)
[2020-09-27 07:57] LABS: Device ROOM AIR; Site Drawn RIGHT BRACHIAL
[2020-09-27 08:05] LABS: Magnesium 2.1 mg/dL (1.6-2.3)
[2020-09-27 08:10] LABS: Ammonia < 9 umol/L (9-30); Ethanol < 10 mg/dL (<10)
[2020-09-27 08:18] LABS: Lactic Acid Reflex 14.5 mmol/L (0.7-2.1)
[2020-09-27] MEDS: LACTATED RINGERS 1,000 ML 999 ML IV CONT (08:27)
--- NOTE | 2020-09-27 08:51 | ED.SEIZURE ---
HPI - Seizure General Chief Complaint: Seizure Stated Complaint: seizures Time Seen by Provider: 09/27/20 07:03 Source: family, RN notes reviewed and old records reviewed Mode of arrival: EMS Limitations: altered mental status History of Present Illness HPI Narrative: This is a 55 year old male with history of seizures, hepatitis with cirrhosis who presents from home via EMS for evaluation of recurrent seizures. Patient's reports patient was witnessed to have back to back seizures this morning. She states her daughter found patient in his rocking chair unresponsive and rocking uncontrollably. Immediately after patient, then appeared to have another seizure. She states patient turned his head to the right and seemed to try to scream out. This lasted less than a minute. On arrival to ER, patient was combative and postictal. He was given Ativan 2 mg IV. Patient's states patient is compliant with his Keppra 500 mg BID. He was admitted to [facility] 5 days ago for recurrent seizure. Patient signed out AMA after 1 day. Seizure History: Yes Related Data Home Medications Medication Instructions Recorded Confirmed omeprazole 40 mg PO DAILY 01/17/20 09/23/20 Adults Multivitamin 1 tablet PO DAILY 02/16/20 09/23/20 Calcium 600 + D(3) 1 cap PO BID 02/16/20 09/23/20 gabapentin 800 mg PO QID 02/16/20 09/23/20 levetiracetam [Keppra] 500 mg PO BID 02/16/20 09/23/20 oxycodone 20 mg PO Q4H PRN 02/16/20 09/23/20 tamsulosin [Flomax] 0.4 mg PO HS 02/16/20 09/23/20 tenofovir disoproxil fumarate 300 mg PO DAILY 02/16/20 09/23/20 budesonide-formoterol [Symbicort] 2 puff INHALATION BID 08/26/20 09/23/20 ondansetron 8 mg TRANSLINGUAL Q8H PRN 09/22/20 09/23/20 albuterol sulfate See Rx Instructions .ROUTE .COMPLEX 09/23/20 09/23/20 Allergies Allergy/AdvReac Type Severity Reaction Status Date / Time hornet venom Allergy Unknown Unknown Verified 09/27/20 06:30 strawberry Allergy Unknown Unknown Verified 09/27/20 06:30 ciprofloxacin Allergy Unknown Verified 09/27/20 06:30 fentanyl Allergy Unknown Verified 09/27/20 06:30 metronidazole AdvReac Unknown Nausea And Verified 09/27/20 06:30 Vomiting Review of Systems Review of Systems: All systems reviewed & are unremarkable except as noted in HPI and below Constitutional: Constitutional: Denies chills and Denies fever(s) Cardiovascular: Cardiovascular: Denies chest pain Respiratory: Respiratory: Denies dyspnea Gastrointestinal: Gastrointestinal: Denies abdominal pain and Reports nausea Neurologic: Reports headache(s) [facility] Past Medical History Medical History Chronic pain syndrome Cirrhosis COPD (chronic obstructive pulmonary disease) GERD (gastroesophageal reflux disease) Hepatic encephalopathy Hepatocellular carcinoma Hepatocellular carcinoma History of hepatitis B Hx of peptic ulcer as a child Seizure Seizure Surgical History Surgical History History of cholecystectomy History of tibial fracture requiring surgical repair. Family History Family History Father Hypertension Cerebrovascular accident Myocardial infarct Sibling Hypertension Sibling Hypertension Father Hypertension Cerebrovascular accident Family history of coronary artery disease Sibling Hypertension Social History Social History Social History: Smokes 1/2 ppd since 17yo. He is trying to quit. Lives at home with his and children. He is a full code. Smoking packs per day: 0.5 Smoking cigarettes per day: 10.0 Years smoked: 36 Smoking pack-years: 18.00 Smoking status: Current every day smoker Tobacco type: cigarettes Second hand tobacco smoke exposure: Yes Smoking end date: 03/01/13 Alcohol intake: former [facility]
[2020-09-27 10:16] LABS: Reflex Lactic Acid Yes or No Add Lactic
[2020-09-27 10:51] LABS: Lactic Acid 0.8 mmol/L (0.7-2.1)
[2020-09-27] MEDS: ONDANSETRON INJ 4 MG/2 ML VIAL IV PUSH (11:01)
--- NOTE | 2020-09-27 11:02 | PC.NURSE ---
Patient vomiting at this time, Dr. Chong order zofran IVP at this time. Will monitor.
== END 2020-09-27 13:15 | disposition home or self-care (01) ==
PROVIDERS: Emergency Medicine; Emergency Provider General Practice; PCP Family Medicine
DX: G40.909 Epilepsy, unspecified, not intractable, without status epilepticus (principal); G89.4 Chronic pain syndrome; K74.60 Unspecified cirrhosis of liver; J44.9 Chronic obstructive pulmonary disease, unspecified; K21.9 Gastro-esophageal reflux disease without esophagitis; K72.90 Hepatic failure, unspecified without coma; F17.210 Nicotine dependence, cigarettes, uncomplicated; Z85.05 Personal history of malignant neoplasm of liver; Z86.19 Personal history of other infectious and parasitic diseases; I45.10 Unspecified right bundle-branch block; R94.31 Abnormal electrocardiogram [ECG] [EKG]
CPT/HCPCS: 36415; 36600; 51701; 70450; 71045; 80053; 80307; 81001; 82140; 82375; 82805; 82948; 83050; 83605; 83735; 85025; 85610; 85730; 93005; 96361; 96374; 96375; 99284; J0131; J1953; J2060; J2405; J7030; J7120

== ENCOUNTER 2020-10-25 07:16 | Observation (INO) | payer MEDICARE, MEDICAID, SELFPAY ==
[2020-10-25] VITALS (13 sets, daily range): BP systolic 125–180; BP diastolic 56–112; PULSE 71–124; RESP 14–28; TEMP 36.2–37.4; O2SAT 93–99; BMI 17.4
--- NOTE | ~2020-10-25 | XR_ITS ---
EXAMINATION: XR chest 1V portable EXAM DATE: 10/25/2020 08:18 INDICATION: Temporary change in awareness. TECHNIQUE: Portable AP frontal chest x-ray was obtained. Comparison is made to prior examination from 01/28/2021. FINDINGS: The lungs are clear. There are no pleural effusions. The cardiomediastinal silhouette is within normal limits. There is no pneumothorax suspected. The bones and soft tissues are unremarkab le. IMPRESSION: No acute cardiopulmonary findings. Reviewed, dictated and finalized at location A.
--- NOTE | ~2020-10-25 | CT_ITS ---
EXAMINATION: CT brain wo con EXAM DATE: 10/25/2020 09:17 INDICATION: Confusion , renal cell cancer. Possible seizure. Temporary change in awareness. TECHNIQUE: Spiral CT of the head was performed without contrast. Axial, coronal and sagittal images were reviewed. The dose-length product (DLP) for this examination was 605.33 mGy-cm. The exposure w as tailored according to patient size, and iterative reconstruction (ASIR) was used as additional dos e reduction technique. Comparison is made to prior examination from 09/27/2020. FINDINGS: There is no acute intraparenchymal hemorrhage. No evidence of intraparenchymal brain mass lesion. No evidence of acute infarction. Please note that initial head CT has limited sensitivity f or small or acute infarctions. There is mild periventricular and subcortical hypodensity, nonspecific but probably related to small vessel ischemic disease. There is intracranial carotid arteriosclero sis. There are no extra-axial collections. There is no mass effect or midline shift. The orbits ar e unremarkable. Soft tissue is unremarkable. The visualized sinuses and mastoid air cells are well aerated. IMPRESSION: 1. No acute intracranial findings. 2. Mild microangiopathy. Reviewed, dictated and finalized at location A.
--- NOTE | ~2020-10-25 | CT_ITS ---
EXAMINATION: CT abdomen pelvis w con EXAM DATE: 10/25/2020 09:16 INDICATION: Abdominal pain. Cancer. TECHNIQUE: Spiral CT of the abdomen and pelvis was performed following intravenous injection of 100 m L Omnipaque 350. Axial, coronal and sagittal images of the abdomen and pelvis were reviewed. The do se-length product (DLP) for this examination was 339.96 mGy-cm. The exposure was tailored according to patient size (auto mA exposure control), and iterative reconstruction (ASIR) was used as additiona l dose reduction technique. Comparison is made to prior examination from 09/22/2020. FINDINGS: There is cirrhosis and portal hypertension with gastroesophageal varices and mild splenomeg jade. There is vague hypodensity in the left aspect of the luiza hepatis measuring about 2 cm, suspici ous for malignancy causing mild left liver lobe lateral segmental biliary duct dilation. Could be hep atocellular cancer, less likely metastatic. Adrenal glands and pancreas are unremarkable. There are cholecystectomy clips. Portal and splenic veins are patent. Kidneys enhance symmetrically. There i s no hydronephrosis. The prostate is unremarkable. The bladder is unremarkable. There is no retro peritoneal or pelvic lymphadenopathy. There is mild scattered arteriosclerotic disease. The appendix is normal. Colon wall appears mildly diffusely edematous. There is mild scattered coloni c diverticulosis. Gastric antrum may have wall edema, possible gastritis or peptic ulcer disease. Th ere is expected amount of colonic stool. No free intraperitoneal gas. The heart is normal in size . There are no pericardial or pleural effusions. The lung bases are unremarkable. There are no ost eoblastic or osteolytic lesions identified. IMPRESSION: 1. Possible mild pancolitis and possible gastritis/peptic ulcer disease. 2. Central left liver lobe mass likely malignancy causing intrahepatic biliary dilation unchanged. 3. Cirrhosis, portal hypertension, mild splenomegaly. Reviewed, dictated and finalized at location A.
--- NOTE | 2020-10-25 07:22 | ECG_ITS ---
Measurements Intervals [place] Rate: 93 P: 71 [place]: 141 QRS: 3 QRSD: 87 T: 64 QT: 359 QTc: 448 Interpretive Statements SINUS RHYTHM INCOMPLETE RIGHT BUNDLE BRANCH BLOCK BASELINE ARTIFACT- I, II, III, AVR, AVL, AVF, V1-V6 BORDERLINE ECG Electronically Signed On 10-31-2020 20:12:19 CDT by Davidson Juarez D.O.
--- NOTE | 2020-10-25 07:25 | PC.NURSE ---
pt restless and moaning. pt lost iv site rt ac while restless, moving about in bed. pt also pulled off tele leads and bp cuff. pt awake and moaning but cannot be redirected. at bedside
--- NOTE | 2020-10-25 07:30 | PC.NURSE ---
pt appears to be having seizure. pt staring off with jaws clenched . pt with stiff/rigid extremities. oral airway suctioned and o2 nasal cannula applied at 2 lpm. seizures pads already in place bilat bed rails. md notified.
--- NOTE | 2020-10-25 07:30 | ED.GENADULT ---
HPI - General Adult General Chief complaint: Altered Mental Status Stated complaint: poss sz Time Seen by Provider: 10/25/20 07:30 Source: family, EMS and RN notes reviewed Mode of arrival: EMS Limitations: altered mental status History of Present Illness HPI narrative: Patient brought to the emergency room by ambulance from home because of acting funny, agitated, possible seizing for the last 2 to 3 days. Patient ran out of oxycodone in the last few days. Unable to get refill. Patient is not vaccinated for COVID-19. Related Data Home Medications Medication Instructions Recorded Confirmed omeprazole 40 mg PO DAILY 01/17/20 09/23/20 Adults Multivitamin 1 tablet PO DAILY 02/16/20 09/23/20 Calcium 600 + D(3) 1 cap PO BID 02/16/20 09/23/20 gabapentin 800 mg PO QID 02/16/20 09/23/20 tamsulosin [Flomax] 0.4 mg PO HS 02/16/20 09/23/20 tenofovir disoproxil fumarate 300 mg PO DAILY 02/16/20 09/23/20 budesonide-formoterol [Symbicort] 2 puff INHALATION BID 08/26/20 09/23/20 ondansetron 8 mg TRANSLINGUAL Q8H PRN 09/22/20 09/23/20 albuterol sulfate See Rx Instructions .ROUTE .COMPLEX 09/23/20 09/23/20 Allergies Allergy/AdvReac Type Severity Reaction Status Date / Time hornet venom Allergy Unknown Unknown Verified 10/25/20 07:27 strawberry Allergy Unknown Unknown Verified 10/25/20 07:27 ciprofloxacin Allergy Unknown Verified 10/25/20 07:27 fentanyl Allergy Unknown Verified 10/25/20 07:27 metronidazole AdvReac Unknown Nausea And Verified 10/25/20 07:27 Vomiting Review of Systems Review of Systems: ROS unobtainable: Yes unobtainable due to mental status PMFSH Past Medical History Medical History Chronic pain syndrome Cirrhosis COPD (chronic obstructive pulmonary disease) GERD (gastroesophageal reflux disease) Hepatic encephalopathy Hepatocellular carcinoma Hepatocellular carcinoma History of hepatitis B Hx of peptic ulcer as a child Seizure Seizure Surgical History Surgical History History of cholecystectomy History of tibial fracture requiring surgical repair. Family History Family History Father Hypertension Cerebrovascular accident Myocardial infarct Sibling Hypertension Sibling Hypertension Father Hypertension Cerebrovascular accident Family history of coronary artery disease Sibling Hypertension Social History Social History Social History: Smokes 1/2 ppd since 17yo. He is trying to quit. Lives at home with his and children. He is a full code. Smoking packs per day: 0.5 Smoking cigarettes per day: 10.0 Years smoked: 36 Smoking pack-years: 18.00 Smoking status: Current every day smoker Tobacco type: cigarettes Second hand tobacco smoke exposure: Yes Smoking end date: 03/01/13 Alcohol intake: former Substance use: former Substance use type: marijuana, crack/cocaine and methamphetamine Other substance usage details: has not had alcohol in 16 years/ was never a heavy drinker per Last use: no meth/cocaine in 16 years/uses marijuana currently for pain/appetite Gender identity (if verbalized by the patient): Male Agree to blood products: Yes Exam Narrative: General appearance: Well-developed, well-nourished, combative, confused. at the bedside Skin: Normal color Head: Normocephalic, nontraumatic Eyes: Clear conjunctiva ENT: Oropharynx normal, ears normal, nose normal Neck: Supple, nontender Chest and respiratory: Airway patent, no respiratory distress, no accessory muscle use Heart: Tachycardia Abdomen: Soft, nontender, no organomegaly, quiet bowel sounds Musculoskeletal: Patient is all over the bed, moving all the extremities Neurologic: Altered, disoriented
--- NOTE | 2020-10-25 07:43 | PC.NURSE ---
medicated im rt thigh per md verbal orders. pt not having seizure type activity at this time. pt growling and grabbing at staff arms, pt attempting to scratch and bite staff. pt cannot be redirected by staff or family. md approves soft restraints for pt and staff safety. restraint education to pt and family. soft bilat wrist restraints per hospital policy
[2020-10-25] MEDS: diazePAM INJ (*CRX) 10 MG/2 ML SYRINGE IM (07:44)
--- NOTE | 2020-10-25 08:00 | PC.NURSE ---
small abrasions observed to pt's lt upper abd and rt lower anterior leg. pt was observed scratching and clawing at his skin during seizure type activity
[2020-10-25] MEDS: SODIUM CHLORIDE 0.9% IV 1,000 ML 999 ML IV CONT (08:15)
[2020-10-25] MEDS: HYDROmorphone HCL INJ (*CRX) 1 MG/ML SYR IM (08:15)
[2020-10-25] MEDS: levETIRAcetam 1000MG/NACL100ML 1,000 MG/100 ML BAG 400 MG IVPB (08:16)
[2020-10-25 08:27] LABS: Basophils Percent Auto 0.2 % (0.2-1.2); Eosinophils Absolute Auto 0.1 K/mm3 (0-0.3); Eosinophils Percent Auto 1.1 % (0-4.4); Hematocrit 37.1 % (42.0-52.0); Hemoglobin 12.1 g/dL (14.0-18.0); Immature Granulocyte Absolute 0.04 K/mm3 (0.00-0.031); Immature Granulocyte Percent A 0.5 % (0-0.5); Immature Platelet Fraction Pct 8.2 % (0.9-11.2); Lymphocytes Absolute Auto 0.83 K/mm3 (0.9-3.2); Lymphocytes Percent Auto 9.9 % (18.3-44.2); Mean Corpuscular HGB Conc 32.6 g/dl (32-36); Mean Corpuscular Hemoglobin 30.9 pg (26-34); Mean Corpuscular Volume 94.6 fl (80-100); Mean Platelet Volume 11.6 fl (7.4-10.4); Monocytes Absolute Auto 0.4 K/mm3 (0.1-0.6); Monocytes Percent Auto 5.2 % (2.6-8.5); Neutrophils Percent Auto 83.1 % (45.5-73.1); Platelet Count Result 140 k/mm3 (150-375); Red Blood Count 3.92 M/mm3 (4.6-6.20); Red Cell Distribution Width 14.8 % (11.5-14.5); White Blood Count 8.4 K/mm3 (4.5-10.0)
[2020-10-25 08:35] LABS: Ammonia 203 umol/L (9-30)
[2020-10-25 08:37] LABS: Alanine Aminotransferase 27 U/L (4-50); Albumin Level 4.5 g/dL (3.5-5.1); Alkaline Phosphatase 95 U/L (38-126); Anion Gap 10 mmol/L (8-16); Aspartate Amino Transferase 40 U/L (17-59); Bilirubin,Total 0.4 mg/dL (0.2-1.3); Blood Urea Nitrogen 10 mg/dL (9-20); Calcium 9.6 mg/dL (8.4-10.2); Carbon Dioxide 25 mmol/L (22-30); Chloride 107 mmol/L (98-107); Estimated CRCL calculation 84 ml/min; Estimated Glomerular Filt Rate > 60; Glucose 126 mg/dL (65-110); Potassium 3.8 mmol/L (3.4-5.0); Sodium 142 mmol/L (137-145)
[2020-10-25 08:41] LABS: INR 1.1; Prothrombin Time 13.6 Seconds (11.1-14.7)
[2020-10-25 08:42] LABS: Ethanol < 10 mg/dL (<10)
[2020-10-25 08:52] LABS: Add Urine Microscopic? YES; Appearance Urine Clear (Clear); Bilirubin Urine Negative (Negative); Blood Urine 1+ (Negative); Color Urine Straw (Yellow); Glucose Urine UA Negative (Negative); Ketones Urine Negative (Negative); Leukocyte Esterase Ur Negative LEU/UL (Negative); Nitrate Urine Negative (Negative); Protein Urine Negative (Negative); Specific Grav Ur 1.014 (1.001-1.035); Urobilinogen Urine Negative mg/dL (<2.0); WBC Urine 0-3 /hpf
[2020-10-25 08:53] LABS: Amphetamine Screen Urine Negative (Negative); Barbiturate Screen Urine Negative (Negative); Benzodiazepines Screen Urine Negative (Negative); Cannabinoid Screen Urine Positive (Negative); Cocaine Screen Urine Negative (Negative); Methadone Screen Urine Negative (Negative); Opiate Screen Urine Positive (Negative); Phencyclidine Screen Urine Negative (Negative)
--- NOTE | 2020-10-25 09:28 | PC.NURSE ---
pt more coherent and following simple commands. bilat soft wrist restraints removed/discontinued. pt and family in agreement for removal at this time.
--- NOTE | 2020-10-25 11:10 | PC.NURSE ---
Pt. trying to get up of off stretcher, was sitting on end of stretcher with feet on the floor; spitting in emesis bag. Per female with pt. he said he had to pee the suddenly tried to get up. Pt. asked repeatedly to get all the way back on the bed; female yelled at him NOW and he positioned himself back on the bed. Pt. voided in urinal, clear yellow. After voiding, bed alarm placed under pt., yellow tag put on arm band and yellow triangle outside of door.
--- NOTE | 2020-10-25 11:39 | PC.NURSE ---
Primary RN and transportation consultant aware pt. placed on bed alarm.
--- NOTE | 2020-10-25 11:40 | PCCCNOTE ---
Spoke with pt and his at bedside. Pt's did all of answering questions. Pt laying in bed in position and occasionally moans and rubs abd and left hip. states pt is out of pain meds because he has been vomiting and can't keep them down so he will try to take another later and has ran out of meds. states pt sees Dr. Shankar who is out of the office and they have tried to get in to see another provider. This care coordination called Dr. Shankar office [phone] and requested appointment next week. Poultry Hanger states pt has appt for 11/18/2020 but she would send RN note requesting appointment next week. The office is only open on Mondays and Wednesdays. Will inform pt of possible call from Dr. Shankar office.
--- NOTE | 2020-10-25 11:47 | PC.NURSE ---
Planer Operator aware pt. has bed alarm and fall precautions started in the ED.
--- NOTE | 2020-10-25 11:52 | PC.NURSE ---
Patient moves between being awake and having dry heaves to sleeping with frequent restless type movements on the stretcher. When he is asleep, he wakes easily to verbal stimuli. He is able to tell me his name and birthday. Additionally he is able to tell me he is in a hospital but believes that this is [facility]. He is unable to tell me the day, date, month, or year. present states this is normal after he has his seizures. She tells me that he woke at 0430 and was able to walk up stairs to her room and was shaky and fell on top of me . She states they took him back down stairs and had two episodes as described above. She states that patient's eyes were wide open while this occurred. Lastly she tells me that this happened 2 more times in the ED earlier today. She reports that these episodes happen when patient is out of his medication which is oxycodone 20mg and that he took his last pill yesterday (unknown time). States that he takes 20 mg oxycodone every 4 hours.
--- NOTE | 2020-10-25 12:40 | PM.IMHP ---
H&P: HPI History of Present Illness Date/Time: 10/25/20 12:40 this is a 55-year-old male patient who has a history of hepatic carcinoma, hepatitis as well as cirrhosis of the liver. The patient sees a specialist at [facility]. The patient is on the transplant list for liver transplant. The is at the bedside answering questions. The patient is rolling around in the bed complaining of severe discomfort to his abdomen. The stated that she brought him into the emergency room from home because he was confused and agitated and she stated that he had 5 seizures today. The patient's stated that the patient ran out of oxycodone. The stated that he typically has seizures whenever he is going through withdrawals from narcotics. The patient has not had any fever chills or any symptoms of COVID-19. And the patient has not been vaccinated for COVID-19. His ammonia level is 203. The patient is not typically on lactulose. The patient was ordered a dose of lactulose. His sodium level was normal today. His sodium level was normal. The patient had a CT of the abdomen which was read as the following1. Possible mild pancolitis and possible gastritis/peptic ulcer disease. 2. Central left liver lobe mass likely malignancy causing intrahepatic biliary dilation unchanged. 3. Cirrhosis, portal hypertension, mild splenomegaly. The tells me that his liver mass had been radiated and it is a ?empty mass?. Head CT was read as no acute intracranial findings. Mild micro angiopathy. The patient was given Ativan, IV fluids, Valium, Keppra, Protonix, Zofran, and lactulose was ordered. It was reported that the ER physician did call [facility] and it was explained that the patient could be treated here. No GI available currently. Patient is being admitted to observation status on the date of service of 10/25/2020. Chief Complaint: Confusion Review of Systems Review of Systems: All systems reviewed & are unremarkable except as noted in HPI and below Constitutional: Constitutional: Reports as per HPI and Reports no additional constitutional complaints Eyes: Eyes: Reports as per HPI and Reports no additional eye complaints ENT: Reports system reviewed and no additional complaints, except as documented and Reports Normal hearing present Cardiovascular: Cardiovascular: Reports no additional cardiovascular complaints Respiratory: Respiratory: Reports no additional respiratory complaints and Reports no additional respiratory complaints Gastrointestinal: Gastrointestinal: Reports as per HPI and Reports no additional gastrointestinal complaints Musculoskeletal: Musculoskeletal: Reports no additional musculoskeletal complaints Integumentary/Breasts: Skin/Breast: Reports system reviewed and no additional complaints, except as docu and Reports as per HPI Neurologic: Reports system reviewed and no additional complaints, except as documented, Reports as per HPI and Reports Normal hearing present Psychiatric: Psychiatric: Reports no additional psychiatric complaints and Reports as per HPI Endocrine: Endocrine: Reports no additional endocrine complaints Hematologic/Lymphatic: Hematologic/Lymphatic: Reports no additional hematologic/lymphatic complaints Allergic/Immunologic: Allergic/Immunologic: Reports no additional allergic/immunologic complaints [facility] Past Medical History Medical History (Updated 10/25/20 @ 12:55 by Griselda Davenport NP) Chronic pain syndrome Cirrhosis COPD (chronic obstructive pulmonary disease) GERD (gastroesophageal reflux disease) Hepatic encephalopathy Hepatocellular carcinoma radiation treatment Hepatocellular carcinoma History of hepatitis B Hx of peptic ulcer as a child Seizure Seizure Surgical History Surgical History History of cholecystectomy History of tibial fracture requiring surgical repair. Family History Family History (Reviewed 10/25
--- NOTE | 2020-10-25 12:45 | PCCCNOTE ---
Gave pt and phone numbers for [facility] office numbers and PMD in area booklet of accepting pt's. states pt does have liver and oncology MD's and states they will not order pain medications as they want 1 Dr to order pain medication.
[2020-10-25] MEDS: PANTOPRAZOLE SODIUM IV 40 MG VIAL IV PUSH (12:51)
[2020-10-25] MEDS: ONDANSETRON INJ 4 MG/2 ML VIAL IV PUSH ×4 (12:51→23:08)
[2020-10-25] MEDS: HYDROmorphone HCL INJ (*CRX) 1 MG/ML SYR IV PUSH ×4 (12:52→23:08)
[2020-10-25] MEDS: LACTULOSE 20 GM/30 ML UDC 30 GM PO (13:05)
--- NOTE | 2020-10-25 14:05 | PC.NURSE ---
This patient, Ronan Baez, was admitted to 3 [facility] Surg Room 322-01. Patient/family oriented to hospital policies and general routines including ID bracelet, bed and alarms, visiting hours, pain management, procedures, bathroom and other care routines, personal items, smoking policy, room service/diet, and visiting hours. Information on how to activate the Rapid Response Team has been discussed. Patient/Family are encouraged to report perceived risks to care and to ask questions if they do not understand what they are told or what they should do.
--- NOTE | 2020-10-25 14:08 | WPDNEURCNPN ---
Assessment and Plan Additional Plan Most likely withdrawal seizures at this stage his general physical examination and neuro examination are stable, his treatment will be continued as such and depending on his need medication will be adjusted will obtain the EEG Consult date: 10/25/20 Time Seen: 14:30 HPI: Ronan Baez is a 55 year old male admitted to the hospital through the emergency room with complaints of increasing confusion and agitation and also history of 5 seizures on day of admission when he ran out of oxycodone and also the mention that he is going through withdrawal from narcotics patient has not been vaccinated for COVID-19 initial evaluations ammonia level was 203 and he is not typically on lactulose which was ordered CT scan of the abdomen revealed possible mild pancolitis and possible gastritis with peptic ulcer disease, central left liver lobe mass likely magnet NC causing intrahepatic biliary dilatation, Cirrhosis with portal hypertension and splenomegaly as per the information available from the patient's the hepatic mass has been radiated CT scan of the head was negative for any bleed he received Ativan intravenously along with the Keppra Protonix Zofran and lactulose [facility] was contacted by the ER physician no GI available currently patient was admitted to the observation status. So the patient has documented history of hepatic carcinoma, hepatitis, and cirrhosis of the liver, he suffers from the chronic pain syndrome along with COPD GERD intermittent hepatic encephalopathy and does have a history of hepatitis B as well in addition to seizures. Smoking pack years are 18 and currently everyday smoker, former alcohol drinker, former substance user medications already include Keppra 750 mg twice a day along with gabapentin 800 mg q.i.d. and evaluation included CT scan of the head which revealed no bleed or space-occupying lesion no stroke except mild microangiopathy, abdomen and pelvic CT scan documented mild pancolitis gastritis and peptic ulcer disease with central left liver lobe mass likely malignancy with biliary dilatation and cirrhosis portal hypertension and splenomegaly as well. As per the information available from the patient's he had 5 seizures today but he was withdrawing from narcotics Review of Systems Review of Systems: All systems reviewed & are unremarkable except as noted in HPI and below PMFSH Past Medical History Medical History Chronic pain syndrome Cirrhosis COPD (chronic obstructive pulmonary disease) GERD (gastroesophageal reflux disease) Hepatic encephalopathy Hepatocellular carcinoma radiation treatment Hepatocellular carcinoma History of hepatitis B Hx of peptic ulcer as a child Seizure Seizure Surgical History Surgical History History of cholecystectomy History of tibial fracture requiring surgical repair. Family History Family History Father Hypertension Cerebrovascular accident Myocardial infarct Sibling Hypertension Sibling Hypertension Father Hypertension Cerebrovascular accident Family history of coronary artery disease Sibling Hypertension Social History Social History Social History: Smokes 1/2 ppd since 17yo. He is trying to quit. Lives at home with his and children. He is a full code. The patient had 7 children. He is on disability. The patient continues to use marijuana gummies. He no longer uses cocaine or other illicit drugs. Smoking packs per day: 0.5 Smoking cigarettes per day: 10.0 Years smoked: 36 Smoking pack-years: 18.00 Smoking status: Current every day smoker Tobacco type: cigarettes Second hand tobacco smoke exposure: Yes Smoking end date: 03/01/13 Alcohol intake: former Substance use: former S
[2020-10-25 15:12] LABS: Ammonia < 9 umol/L (9-30)
[2020-10-25] MEDS: SODIUM CHLORIDE 0.9% IV 1,000 ML 125 ML IV CONT (16:01)
[2020-10-25] MEDS: LACTULOSE 20 GM/30 ML UDC PO ×2 (16:25→19:03)
[2020-10-25] MEDS: levETIRAcetam 250 MG TABLET 750 MG PO (23:02)
[2020-10-25] MEDS: GABAPENTIN 400 MG CAPSULE 800 MG PO (23:02)
[2020-10-26] MEDS: HYDROmorphone HCL INJ (*CRX) 1 MG/ML SYR IV PUSH (04:30)
[2020-10-26] MEDS: SODIUM CHLORIDE 0.9% IV 1,000 ML 125 ML IV CONT (04:31)
[2020-10-26] MEDS: ONDANSETRON INJ 4 MG/2 ML VIAL IV PUSH (04:31)
[2020-10-26 05:28] LABS: Basophils Percent Auto 0.1 % (0.2-1.2); Eosinophils Percent Auto 0.3 % (0-4.4); Hematocrit 36.4 % (42.0-52.0); Hemoglobin 12.1 g/dL (14.0-18.0); Immature Granulocyte Absolute 0.05 K/mm3 (0.00-0.031); Immature Granulocyte Percent A 0.4 % (0-0.5); Immature Platelet Fraction Pct 7.9 % (0.9-11.2); Lymphocytes Absolute Auto 0.61 K/mm3 (0.9-3.2); Lymphocytes Percent Auto 5.2 % (18.3-44.2); Mean Corpuscular HGB Conc 33.2 g/dl (32-36); Mean Corpuscular Hemoglobin 31.4 pg (26-34); Mean Corpuscular Volume 94.5 fl (80-100); Mean Platelet Volume 11.5 fl (7.4-10.4); Monocytes Absolute Auto 0.6 K/mm3 (0.1-0.6); Neutrophils Absolute Auto 10.4 K/mm3 (1.3-6.7); Platelet Count Result 99 k/mm3 (150-375); Red Blood Count 3.85 M/mm3 (4.6-6.20); White Blood Count 11.7 K/mm3 (4.5-10.0)
[2020-10-26 05:40] LABS: Ammonia < 9 umol/L (9-30); Lactic Acid Reflex 0.9 mmol/L (0.7-2.1)
[2020-10-26 05:41] LABS: Alanine Aminotransferase 22 U/L (4-50); Albumin Level 3.6 g/dL (3.5-5.1); Alkaline Phosphatase 90 U/L (38-126); Anion Gap 8 mmol/L (8-16); Aspartate Amino Transferase 42 U/L (17-59); Blood Urea Nitrogen 10 mg/dL (9-20); Calcium 8.7 mg/dL (8.4-10.2); Carbon Dioxide 20 mmol/L (22-30); Chloride 108 mmol/L (98-107); Estimated CRCL calculation 89 ml/min; Estimated Glomerular Filt Rate > 60; Glucose 106 mg/dL (65-110); Lactate Dehydrogenase 613 U/L (313-618); Lipase 42 U/L (23-300); Sodium 136 mmol/L (137-145)
[2020-10-26 05:53] VITALS: BP 112/64; PULSE 69; RESP 18; TEMP 37.5; O2SAT 90
--- NOTE | 2020-10-26 08:10 | PC.NURSE ---
pt stating he is leaving at 0730. Discussed with patient. Pt willing to stay to speak with provider. Provider talked with patient at 0750. Patient adamant on leaving. Nurse discussed with patient the risks of leaving and the benefit of staying. Nurse asked about pt plan. Pt states he will walk if he has to. Nurse called Heather on behalf of pt. Heather stated that she will get dressed and come up to get him. IV was removed. Reviewed with nurse regarding AMA paper and pt acknowledges risk of leaving AMA.
--- NOTE | 2020-10-26 13:55 | PM.DS ---
DS: Admitting Diagnosis Admitting Diagnosis Seizures DS: Discharge Diagnosis Discharge Diagnosis (1) Opioid dependence with withdrawal: Code(s): F11.23 - Opioid dependence with withdrawal Status: Acute Assessment and Plan: The patient is complaining of severe discomfort to his right upper quadrant. He ran out of oxycodone. He is currently taking Dilaudid here. (2) Seizure: Code(s): R56.9 - Unspecified convulsions Status: Acute Assessment and Plan: I did consult Neurology. Patient was given Ativan and was given a loading dose of Keppra. Will continue with his normal dose of Keppra. (3) Encephalopathy, hepatic: Code(s): K72.90 - Hepatic failure, unspecified without coma Status: Acute Assessment and Plan: According the the patient had 5 seizures today. He has been taking his seizure medicine but he has been withdrawing from narcotics. She states that he tends to have a seizure when he is withdrawing from narcotics. The patient's ammonia levels also extremely high. Continue with lactulose. Continue to monitor ammonia levels. The patient typically sees a pad ache specialist at [facility]. He could follow up with them outpatient. (4) Cirrhosis of liver: Qualifiers: Ascites presence: without ascites Hepatic cirrhosis type: unspecified hepatic cirrhosis Qualified Code(s): K74.60 - Unspecified cirrhosis of liver Code(s): K74.60 - Unspecified cirrhosis of liver Status: Acute Assessment and Plan: The patient is currently on a low list to receive a liver and sees the hepatic specialist at [facility]. Continue with his gabapentin. (5) Hyperammonemia: Code(s): E72.20 - Disorder of urea cycle metabolism, unspecified Status: Acute Assessment and Plan: Continue with lactulose. The patient is more awake and talking now. (6) Gastritis: Qualifiers: Chronicity: unspecified Gastritis bleeding: without bleeding Gastritis type: unspecified gastritis Qualified Code(s): K29.70 - Gastritis, unspecified, without bleeding Code(s): K29.70 - Gastritis, unspecified, without bleeding Status: Acute Assessment and Plan: Continue with pantoprazole and IV fluids. The patient is currently on clear liquids. (7) Liver mass: Code(s): R16.0 - Hepatomegaly, not elsewhere classified Status: Acute Assessment and Plan: According to the she stated that the patient had been radiated and it is a ?empty mass?. (8) COPD (chronic obstructive pulmonary disease): Code(s): J44.9 - Chronic obstructive pulmonary disease, unspecified Status: Acute Assessment and Plan: Continue with inhalers. DS: Summary Hospital Course Hospital Course: This is a 55-year-old male patient with past medical history of hepatic carcinoma, hepatitis as well as cirrhosis of the liver. The patient sees a specialist at [facility]. The patient is on the transplant list for liver transplant. The is at the bedside answering questions. The patient is rolling around in the bed complaining of severe discomfort to his abdomen. The stated that she brought him into the emergency room from home because he was confused and agitated and she stated that he had 5 seizures today. The patient's stated that the patient ran out of oxycodone. The stated that he typically has seizures whenever he is going through withdrawals from narcotics. The patient has not had any fever chills or any symptoms of COVID-19. And the patient has not been vaccinated for COVID-19. His ammonia level is 203. The patient is not typically on lactulose. The patient was ordered a dose of lactulose. His sodium level was normal today. The patient had a CT of the abdomen which was read as: 1. Possible mild pancolitis and possible gastritis/peptic ulcer disease. 2. Central left liver lobe mass likely malignancy causing intrahepatic bilia
== END 2020-10-26 08:06 | disposition left against medical advice (07) ==
LOC: ANHED 11:40 → ANH3MEDSUR 12:38
PROVIDERS: Nurse Practitioner; Admitting Provider Internal Medicine; Emergency Provider Emergency Medicine; PCP Family Medicine; Visit Provider Internal Medicine Nephrology
DX: F11.23 Opioid dependence with withdrawal (principal); R56.9 Unspecified convulsions; K74.60 Unspecified cirrhosis of liver; K72.90 Hepatic failure, unspecified without coma; K29.70 Gastritis, unspecified, without bleeding; R16.0 Hepatomegaly, not elsewhere classified; E72.20 Disorder of urea cycle metabolism, unspecified; J44.9 Chronic obstructive pulmonary disease, unspecified; R41.82 Altered mental status, unspecified
CPT/HCPCS: 36415; 70450; 71045; 74177; 80053; 80307; 81001; 82140; 83605; 83615; 83690; 83735; 84443; 85025; 85055; 85610; 93005; 94640; 96361; 96365; 96372; 96375; 96376; 99285; A9270; C9113; G0378; J1170; J1953; J2405; J3360; J7030; Q9967

== ENCOUNTER 2020-10-30 00:32 | Emergency (ER) | payer MEDICARE, MEDICAID, SELFPAY ==
--- NOTE | 2020-10-30 00:38 | ECG_ITS ---
Measurements Intervals [place] Rate: 84 P: 71 [place]: 138 QRS: 39 QRSD: 91 T: 69 QT: 402 QTc: 477 Interpretive Statements SINUS RHYTHM BASELINE ARTIFACT- I, II, III, AVL, AVF, V4-V6 NORMAL ECG Electronically Signed On 10-30-2020 11:06:24 CDT by Davidson Juarez D.O.
[2020-10-30 00:39] VITALS: BP 143/98; PULSE 83; RESP 10; TEMP 36.7; O2SAT 99
[2020-10-30] MEDS: LORazepam INJ (*CRX) 2 MG/ML VIAL 1 MG IV PUSH (00:56)
[2020-10-30 01:10] LABS: Basophils Percent Auto 0.3 % (0.2-1.2); Eosinophils Absolute Auto 0.1 K/mm3 (0-0.3); Eosinophils Percent Auto 1.3 % (0-4.4); Hematocrit 36.8 % (42.0-52.0); Hemoglobin 11.9 g/dL (14.0-18.0); Immature Granulocyte Absolute 0.06 K/mm3 (0.00-0.031); Immature Granulocyte Percent A 0.6 % (0-0.5); Lymphocytes Absolute Auto 0.86 K/mm3 (0.9-3.2); Mean Corpuscular HGB Conc 32.3 g/dl (32-36); Mean Corpuscular Hemoglobin 31.2 pg (26-34); Mean Corpuscular Volume 96.3 fl (80-100); Mean Platelet Volume 11.2 fl (7.4-10.4); Monocytes Absolute Auto 0.6 K/mm3 (0.1-0.6); Monocytes Percent Auto 6.5 % (2.6-8.5); Neutrophils Absolute Auto 7.9 K/mm3 (1.3-6.7); Neutrophils Percent Auto 82.3 % (45.5-73.1); Platelet Count Result 144 k/mm3 (150-375); Red Blood Count 3.82 M/mm3 (4.6-6.20); Red Cell Distribution Width 14.9 % (11.5-14.5); White Blood Count 9.6 K/mm3 (4.5-10.0)
[2020-10-30 01:22] LABS: Add Urine Microscopic? YES; Appearance Urine Clear (Clear); Bilirubin Urine Negative (Negative); Blood Urine Negative (Negative); Color Urine Straw (Yellow); Glucose Urine UA Negative (Negative); Ketones Urine Negative (Negative); Leukocyte Esterase Ur Negative LEU/UL (Negative); Mucus Urine Rare /lpf; Nitrate Urine Negative (Negative); Protein Urine 1+ mg/dL (Negative); RBC Urine 0-2 /hpf (0-2); Specific Grav Ur 1.013 (1.001-1.035); Urobilinogen Urine Negative mg/dL (<2.0)
[2020-10-30 01:22] LABS: Ammonia < 9 umol/L (9-30)
[2020-10-30 01:23] LABS: Alanine Aminotransferase 43 U/L (4-50); Albumin Level 4.5 g/dL (3.5-5.1); Alkaline Phosphatase 138 U/L (38-126); Anion Gap 18 mmol/L (8-16); Aspartate Amino Transferase 47 U/L (17-59); Bilirubin,Total 0.4 mg/dL (0.2-1.3); Blood Urea Nitrogen 6 mg/dL (9-20); Calcium 9.6 mg/dL (8.4-10.2); Carbon Dioxide 21 mmol/L (22-30); Chloride 104 mmol/L (98-107); Estimated Glomerular Filt Rate > 60; Glucose 158 mg/dL (65-110); Potassium 3.5 mmol/L (3.4-5.0); Sodium 143 mmol/L (137-145)
[2020-10-30 01:24] LABS: Ethanol 24 mg/dL (<10)
--- NOTE | 2020-10-30 01:49 | PC.NURSE ---
pt. sat on edge of bed trying to stand up. pt was pointing in direction of the restroom saying bathroom . I informed him I was not comfortable with him getting up, but would give him a urinal. pt then laid back in bed.
--- NOTE | 2020-10-30 01:51 | PC.NURSE ---
pt. thrashing around in bed and trying to get up multiple times. pt. informed not to get out of bed.
[2020-10-30 02:25] VITALS: BP 147/86; PULSE 88; RESP 16; O2SAT 99
[2020-10-30] MEDS: ONDANSETRON INJ 4 MG/2 ML VIAL IV PUSH (03:50)
--- NOTE | 2020-10-30 04:34 | PC.NURSE ---
Pt continues to roll around on stretcher, restless, not responding to verbal questions or commands. Pt arousable to name and/or light pain.
--- NOTE | 2020-10-30 05:11 | PC.NURSE ---
This RN entered room and witnessed pt upright on stretcher, sticking fingers in mouth and dry heaving. EDP notified.
[2020-10-30 05:19] VITALS: BP 136/86; PULSE 82; RESP 20; O2SAT 99
--- NOTE | 2020-10-30 05:27 | PC.NURSE ---
Family at bedside requesting pain medication for pt. EDP notified.
--- NOTE | 2020-10-30 05:39 | ED.GENADULT ---
HPI - General Adult General Chief complaint: Altered Mental Status Stated complaint: possible seizure Time Seen by Provider: 10/30/20 00:38 History of Present Illness HPI narrative: Patient is a 55-year-old male who presents ER with concerns for seizure activity. He was contacted by family. Patient with history of seizure disorder and history of withdrawal seizure from opiates or alcohol. He has history of hepatocellular carcinoma with massive causes chronic biliary dilatation. He sees a GI team at [facility]. Patiently typically comes into the ER with altered mental status after having a seizure. He then reports right upper quadrant pain. Last time he was here he had run out of oxycodone. He was admitted to the hospital for seizure and pain where he subsequently left AGAINST MEDICAL ADVICE. On last admission patient had elevated ammonia in the serum that rapidly improved. He is not typically takes lactulose at home. Related Data Home Medications Medication Instructions Recorded Confirmed omeprazole 40 mg PO DAILY 01/17/20 10/25/20 Adults Multivitamin 1 tablet PO DAILY 02/16/20 10/25/20 Calcium 600 + D(3) 1 cap PO BID 02/16/20 10/25/20 gabapentin 800 mg PO QID 02/16/20 10/25/20 tenofovir disoproxil fumarate 300 mg PO DAILY 02/16/20 10/25/20 budesonide-formoterol [Symbicort] 2 puff INHALATION BID 08/26/20 10/25/20 ondansetron 8 mg TRANSLINGUAL Q8H PRN 09/22/20 10/25/20 albuterol sulfate See Rx Instructions .ROUTE .COMPLEX 09/23/20 10/25/20 oxycodone 20 mg PO Q4-6H 10/25/20 10/25/20 Allergies Allergy/AdvReac Type Severity Reaction Status Date / Time hornet venom Allergy Unknown Unknown Verified 10/30/20 00:53 strawberry Allergy Unknown Unknown Verified 10/30/20 00:53 ciprofloxacin Allergy Unknown Verified 10/30/20 00:53 fentanyl Allergy Unknown Verified 10/30/20 00:53 metronidazole AdvReac Unknown Nausea And Verified 10/30/20 00:53 Vomiting Review of Systems Review of Systems: ROS unobtainable: Yes unobtainable due to mental status PMFSH Past Medical History Medical History (Updated 10/30/20 @ 07:00 by Rick Camp MD) Alcohol abuse Most recent use 10/29/2020 Chronic pain syndrome Cirrhosis COPD (chronic obstructive pulmonary disease) GERD (gastroesophageal reflux disease) Hepatic encephalopathy Hepatocellular carcinoma radiation treatment Hepatocellular carcinoma History of hepatitis B Hx of peptic ulcer as a child Seizure Seizure Surgical History Surgical History History of cholecystectomy History of tibial fracture requiring surgical repair. Family History Family History Father Hypertension Cerebrovascular accident Myocardial infarct Sibling Hypertension Sibling Hypertension Father Hypertension Cerebrovascular accident Family history of coronary artery disease Sibling Hypertension Social History Social History (Updated 10/30/20 @ 05:59 by Rick Camp MD) Social History: Smokes 1/2 ppd since 17yo. He is trying to quit. Lives at home with his and children. He is a full code. The patient had 7 children. He is on disability. The patient continues to use marijuana gummies. He no longer uses cocaine or other illicit drugs. Smoking packs per day: 0.5 Smoking cigarettes per day: 10.0 Years smoked: 37 Smoking pack-years: 18.50 Smoking status: Current every day smoker Tobacco type: cigarettes Second hand tobacco smoke exposure: No Smoking end date: 03/01/13 Alcohol use details: Alcohol use noted 10/29/2020 with etoh level of 24. Substance use: former Substance use type: prescription drug Other substance usage details: has not had alcohol in 16 years/ was never a heavy drinker per Last use: no meth/cocaine in 16 years/uses marijuana currently for pain/appetite Gender identity (if verbalized by the patient): Male Spiritual care co
[2020-10-30] MEDS: PROMETHAZINE HCL 25 MG/ML AMPUL 12.5 MG IV PUSH (06:06)
[2020-10-30 06:37] VITALS: PULSE 89; RESP 20; O2SAT 100
--- NOTE | 2020-10-30 06:55 | PC.NURSE ---
While walking past the jung beds, this RN heard the sitter for H2 stating hey! no! stop! . This RN responded and found pt in H3 pulling off monitor cords, climbing out of bed, bursting through the curtain divider, and ambulating by self to crash cart with steady gait. Pt then proceeded to urinate on crash cart and wall. This RN standing by as pt holding self up and growling. This RN requested pt to stop urinating and attempted to provide urinal. Pt declined urinal and continued to urinate. Pt then began grasping penis and squeezing tightly with his hand causing it to become discolored. Additional public health staff nurse responding at this time d/t pt behavior. Pt asked to remove hand from penis multiple times by staff present. Pt removed hand and color noted to return to affected area. Pt assisted back into bed by staff and bed alarm placed under patient.
--- NOTE | 2020-10-30 07:10 | PC.NURSE ---
Bed alarm in H3 sounding. This RN responded with ETELVINA Ho. Pt found to be in bed with dressing him. demanding staff to take out this IV, I am taking him home . Pt telling he doesn't want his shoes on, stating you can take them off as soon as you get home . requesting discharge papers and pointing at this RN while being verbally aggressive. ETELVINA Ho at bedside while this RN went to retrieve discharge paperwork. Upon returning to room, was found to be yelling at ETELVINA Ho that she wanted to take pt home and that we didn't do anything for him . ETELVINA Ho re-educated on the various tests we had ran on patient during his stay. pointing at staff and becoming beligerent. This RN felt uncomfortable and asked to lower tone of voice and not yell. At this time, this RN made eye contact with ETELVINA Elder and requested her presence in H3. continuing to yell at staff present, was red in face, pointing at staff members, and now demanding a wheelchair. This RN insisting that pt can stay in department until he is more alert, but continues to yell that she wants to take patient home. ETELVINA Elder got wheelchair and brought to bedside after stating I'll go get one my damn self . placed pt in wheelchair with no issue and verbalized she takes full responsibility for pt as she is the one taking him out of department. states her brother will help her get pt out of vehicle when she gets home. Pt taken out of dept by in stable condition with ETELVINA Elder standing by.
== END 2020-10-30 07:20 | disposition home or self-care (01) ==
PROVIDERS: Emergency Provider Emergency Medicine; PCP Family Medicine
DX: G40.909 Epilepsy, unspecified, not intractable, without status epilepticus (principal); F10.10 Alcohol abuse, uncomplicated; Y90.0 Blood alcohol level of less than 20 mg/100 ml; Z85.05 Personal history of malignant neoplasm of liver; J44.9 Chronic obstructive pulmonary disease, unspecified; K21.9 Gastro-esophageal reflux disease without esophagitis
CPT/HCPCS: 36415; 80053; 80307; 81001; 82140; 85025; 93005; 96374; 96375; 99284; J2060; J2405; J2550

== ENCOUNTER 2020-12-20 17:05 | Emergency (ER) | payer MEDICARE, MEDICAID, SELFPAY ==
[2020-12-20 17:10] VITALS: BP 127/68; PULSE 88; RESP 20; TEMP 37; O2SAT 99
--- NOTE | 2020-12-20 17:10 | PC.NURSE ---
Seizure pads placed before pt arrived in room prepared for safety of pt
--- NOTE | 2020-12-20 17:25 | PC.NURSE ---
Continues to try to get up off stretcher, does not follow direction well. Dr. Chong in to see pt and given an update.
--- NOTE | 2020-12-20 17:35 | ED.SEIZURE ---
HPI - Seizure General Chief Complaint: Seizure <Francia Chong MD - Last Filed: 12/21/20 07:02> Stated Complaint: seizures <Francia Chong MD - Last Filed: 12/21/20 07:02> Time Seen by Provider: 12/20/20 17:21 <Francia Chong MD - Last Filed: 12/21/20 07:02> Source: EMS and RN notes reviewed <Francia Chong MD - Last Filed: 12/21/20 07:02> Mode of arrival: EMS <Francia Chong MD - Last Filed: 12/21/20 07:02> Limitations: altered mental status <Francia Chong MD - Last Filed: 12/21/20 07:02> History of Present Illness HPI Narrative: This is a 55 year old male with history of seizures, cirrhosis, COPD, chronic pain who presents for evaluation possible seizure. EMS states they were called because patient had seizure at home. No family is present at bedside to provide history. PAtient is combative and not cooperative. Patient is known to staff. <Francia Chong MD - Last Filed: 12/21/20 07:02> Seizure History: Yes <Francia Chong MD - Last Filed: 12/21/20 07:02> Related Data Home Medications: Home Medications Medication Instructions Recorded Confirmed omeprazole 40 mg PO DAILY 01/17/20 10/25/20 Adults Multivitamin 1 tablet PO DAILY 02/16/20 10/25/20 Calcium 600 + D(3) 1 cap PO BID 02/16/20 10/25/20 gabapentin 800 mg PO QID 02/16/20 10/25/20 tenofovir disoproxil fumarate 300 mg PO DAILY 02/16/20 10/25/20 budesonide-formoterol [Symbicort] 2 puff INHALATION BID 08/26/20 10/25/20 ondansetron 8 mg TRANSLINGUAL Q8H PRN 09/22/20 10/25/20 albuterol sulfate See Rx Instructions .ROUTE .COMPLEX 09/23/20 10/25/20 oxycodone 20 mg PO Q4-6H 10/25/20 10/25/20 <Francia Chong MD - Last Filed: 12/21/20 07:02> Allergies/Adverse Reactions: Allergies Allergy/AdvReac Type Severity Reaction Status Date / Time hornet venom Allergy Unknown Unknown Verified 10/30/20 00:53 strawberry Allergy Unknown Unknown Verified 10/30/20 00:53 ciprofloxacin Allergy Unknown Verified 10/30/20 00:53 fentanyl Allergy Unknown Verified 10/30/20 00:53 metronidazole AdvReac Unknown Nausea And Verified 10/30/20 00:53 Vomiting <Francia Chong MD - Last Filed: 12/21/20 07:02> Review of Systems Review of Systems: ROS unobtainable: Yes unobtainable due to mental status <Francia Chong MD - Last Filed: 12/21/20 07:02> [facility] Past Medical History Medical History: Medical History Alcohol abuse Most recent use 10/29/2020 Chronic pain syndrome Cirrhosis COPD (chronic obstructive pulmonary disease) GERD (gastroesophageal reflux disease) Hepatic encephalopathy Hepatocellular carcinoma radiation treatment Hepatocellular carcinoma History of hepatitis B Hx of peptic ulcer as a child Seizure Seizure <Francia Chong MD - Last Filed: 12/21/20 07:02> Surgical History Surgical History: Surgical History History of cholecystectomy History of tibial fracture requiring surgical repair. <Francia Chong MD - Last Filed: 12/21/20 07:02> Family History Family History: Family History Father Hypertension Cerebrovascular accident Myocardial infarct Sibling Hypertension Sibling Hypertension Father Hypertension Cerebrovascular accident Family history of coronary artery disease Sibling Hypertension <Francia Chong MD - Last Filed: 12/21/20 07:02> Social History Social History: Social History (Updated 10/30/20 @ 05:59 by Rick Camp MD) Social History: Smokes 1/2 ppd since 17yo. He is trying to quit. Lives at home with his and children. He is a full code. The patient had 7 children. He is on disability. The patient continues to use marijuana gummies. He no longer uses cocaine or other illicit drugs. Smoking packs per day: 0.5 Smoking
--- NOTE | 2020-12-20 17:39 | ECG_ITS ---
Measurements Intervals [place] Rate: 82 P: 80 [place]: 135 QRS: 56 QRSD: 92 T: 72 QT: 390 QTc: 456 Interpretive Statements SINUS RHYTHM BASELINE ARTIFACT- II, III, AVL, AVR, AVL, AVF NORMAL ECG Electronically Signed On 12-21-2020 6:49:33 CDT by Davidson Juarez D.O.
[2020-12-20] MEDS: LORazepam INJ (*CRX) 2 MG/ML VIAL 1 MG IV PUSH (17:40)
[2020-12-20 17:59] LABS: Carboxyhemoglobin 2.3 % THb (0-2.0); Fractional Inspired Oxygen 21 %; HCO3 ABG 22.8 mEq/l (22.0-26.0); Methemoglobin ABG 0.2 %THb (0-1.5); Oxygen Content ABG 18.2 %vol (16.0-22.0); Oxygen Saturation ABG 98.1 % (95.0-100.0); Oxyhemoglobin 94.6 % THb (90.0-100.0); PCO2 ABG 28.7 mmHg (35.0-45.0); PO2 ABG 98.4 mmHg (80.0-100.0); PO2 FiO2 Ratio Arterial Blood 4.69 %; Reduced Hemoglobin 2.9 %THb (0-5.0); Total Hemoglobin 13.6 g/dL (12.0-18.0)
[2020-12-20 18:02] LABS: Device ROOM AIR; Modified Allen's Test Pass; Site Drawn LEFT RADIAL; pH ABG 7.518 (7.350-7.450)
[2020-12-20 18:08] LABS: Ammonia < 9 umol/L (9-30); Ethanol < 10 mg/dL (<10)
--- NOTE | 2020-12-20 18:10 | PC.NURSE ---
no acute distress at this time,
[2020-12-20 18:12] LABS: Basophils Percent Auto 0.6 % (0.2-1.2); Eosinophils Absolute Auto 0.1 K/mm3 (0-0.3); Eosinophils Percent Auto 1.7 % (0-4.4); Immature Granulocyte Absolute 0.02 K/mm3 (0.00-0.031); Immature Granulocyte Percent A 0.4 % (0-0.5); Lymphocytes Absolute Auto 1.04 K/mm3 (0.9-3.2); Lymphocytes Percent Auto 20.1 % (18.3-44.2); Mean Corpuscular HGB Conc 34.2 g/dl (32-36); Mean Corpuscular Hemoglobin 31.6 pg (26-34); Mean Corpuscular Volume 92.5 fl (80-100); Mean Platelet Volume 11.1 fl (7.4-10.4); Monocytes Absolute Auto 0.4 K/mm3 (0.1-0.6); Monocytes Percent Auto 7.1 % (2.6-8.5); Neutrophils Absolute Auto 3.6 K/mm3 (1.3-6.7); Neutrophils Percent Auto 70.1 % (45.5-73.1); Platelet Count Result 85 k/mm3 (150-375); Red Blood Count 4.11 M/mm3 (4.6-6.20); White Blood Count 5.2 K/mm3 (4.5-10.0)
[2020-12-20 18:17] LABS: Alanine Aminotransferase 23 U/L (4-50); Albumin Level 4.4 g/dL (3.5-5.1); Alkaline Phosphatase 104 U/L (38-126); Anion Gap 10 mmol/L (8-16); Aspartate Amino Transferase 33 U/L (17-59); Bilirubin,Total 0.8 mg/dL (0.2-1.3); Blood Urea Nitrogen 8 mg/dL (9-20); Calcium 9.9 mg/dL (8.4-10.2); Carbon Dioxide 25 mmol/L (22-30); Chloride 106 mmol/L (98-107); Estimated CRCL calculation 71 ml/min; Estimated Glomerular Filt Rate > 60; Glucose 102 mg/dL (65-110); Magnesium 1.7 mg/dL (1.6-2.3); Potassium 3.4 mmol/L (3.4-5.0); Sodium 141 mmol/L (137-145)
[2020-12-20 18:19] LABS: INR 1.1; Prothrombin Time 14.2 Seconds (11.1-14.7)
[2020-12-20 18:20] LABS: Partial Thromboplastin Time 31.2 SECONDS (22.3-36.8)
[2020-12-20] MEDS: SODIUM CHLORIDE 0.9% IV 1,000 ML 999 ML IV CONT (18:28)
[2020-12-20] MEDS: ONDANSETRON INJ 4 MG/2 ML VIAL IV PUSH (18:29)
--- NOTE | 2020-12-20 18:56 | PC.NURSE ---
I did not obtain EKG for this pt.
--- NOTE | 2020-12-20 19:00 | PC.NURSE ---
pt is nauseated pt given zofran at 1829, informed pt the zofran should help symptoms
[2020-12-20 19:01] VITALS: BP 158/96; PULSE 97; RESP 18; O2SAT 99
--- NOTE | 2020-12-20 19:10 | PC.NURSE ---
Pt is awake alert and communicating effectively
[2020-12-20 19:19] LABS: Add Urine Microscopic? YES; Appearance Urine Cloudy (Clear); Bilirubin Urine Negative (Negative); Blood Urine Negative (Negative); Budding Yeast Urine Present /hpf; Color Urine Yellow (Yellow); Glucose Urine UA Negative (Negative); Ketones Urine Negative (Negative); Leukocyte Esterase Ur Negative LEU/UL (Negative); Nitrate Urine Negative (Negative); Protein Urine 1+ mg/dL (Negative); Specific Grav Ur 1.018 (1.001-1.035); Urobilinogen Urine Negative mg/dL (<2.0)
--- NOTE | 2020-12-20 19:30 | PC.NURSE ---
Assumed care of pt, discussed POC, at bedside, pt resting w/ equal chest rise and fall. VSS.
[2020-12-20 19:49] LABS: Amphetamine Screen Urine Negative (Negative); Barbiturate Screen Urine Negative (Negative); Benzodiazepines Screen Urine Negative (Negative); Cannabinoid Screen Urine Positive (Negative); Cocaine Screen Urine Negative (Negative); Methadone Screen Urine Negative (Negative); Opiate Screen Urine Positive (Negative); Phencyclidine Screen Urine Negative (Negative)
[2020-12-20 20:24] VITALS: BP 132/75; PULSE 82; RESP 18; O2SAT 100
[2020-12-20] MEDS: levETIRAcetam IV 750 MG in DEXTROSE 5% 100 ML 430 MG IVPB (20:24)
--- NOTE | 2020-12-20 20:48 | PC.NURSE ---
Pt using call light to notify this RN he is going to rip out my IV after giving pain medication. EDP made aware and states pt is A&Ox3 and he may refuse care and sign out, that there is no reason to stop him after education. Pt and at bedside given education on keeping IV until discharge.
[2020-12-20] MEDS: MORPHINE SULFATE (*CRX) 4 MG/ML INJ IV PUSH (20:52)
--- NOTE | 2020-12-20 20:55 | PC.NURSE ---
EDP at bedside discussing POC.
[2020-12-20] MEDS: PROCHLORPERAZINE EDISYLATE 10 MG/2 ML VIAL IV PUSH (21:19)
--- NOTE | 2020-12-20 21:22 | PC.NURSE ---
pt. continually stating he is going to rip out his IV. Compazine given, pt. informed if he removes his IV that is his choice but another one will not be started nor will staff remain 1:1 with him to keep his IV in. Pt. alert and oriented x3.
[2020-12-20 22:17] VITALS: BP 130/75; PULSE 87; RESP 14; O2SAT 95
== END 2020-12-20 22:25 | disposition home or self-care (01) ==
PROVIDERS: General Practice; Emergency Provider Emergency Medicine; PCP Family Medicine
DX: R56.9 Unspecified convulsions (principal); R11.2 Nausea with vomiting, unspecified; J44.9 Chronic obstructive pulmonary disease, unspecified; K74.60 Unspecified cirrhosis of liver; G89.4 Chronic pain syndrome; K21.9 Gastro-esophageal reflux disease without esophagitis; Z85.05 Personal history of malignant neoplasm of liver; Z92.3 Personal history of irradiation; Z86.19 Personal history of other infectious and parasitic diseases; Z87.11 Personal history of peptic ulcer disease; F17.210 Nicotine dependence, cigarettes, uncomplicated
CPT/HCPCS: 36415; 36600; 80053; 80307; 81001; 82140; 82375; 82805; 83050; 83735; 85025; 85055; 85610; 85730; 93005; 96361; 96365; 96375; 99284; J0780; J1953; J2060; J2270; J2405; J7030

== ENCOUNTER 2021-01-11 00:33 | Emergency (ER) | payer MEDICARE, MEDICAID, SELFPAY ==
[2021-01-11] VITALS (20 sets, daily range): BP systolic 126–147; BP diastolic 68–90; PULSE 71–102; RESP 12–30; TEMP 36.7; O2SAT 91–100
--- NOTE | 2021-01-11 00:38 | ECG_ITS ---
Measurements Intervals [place] Rate: 91 P: 70 [place]: 116 QRS: 25 QRSD: 84 T: 52 QT: 373 QTc: 459 Interpretive Statements SINUS RHYTHM WITH SHORT VA INTERVAL ATRIAL PREMATURE COMPLEX BORDERLINE ECG Electronically Signed On 01-11-2021 6:58:59 CERTIFIED [place] by Davidson Juarez D.O.
--- NOTE | 2021-01-11 00:43 | PC.NURSE ---
seizure pads in place on arrival.
[2021-01-11 01:01] LABS: Basophils Percent Auto 0.4 % (0.2-1.2); Eosinophils Absolute Auto 0.2 K/mm3 (0-0.3); Hematocrit 43.7 % (42.0-52.0); Hemoglobin 14.7 g/dL (14.0-18.0); Immature Granulocyte Absolute 0.06 K/mm3 (0.00-0.031); Immature Granulocyte Percent A 0.6 % (0-0.5); Lymphocytes Absolute Auto 2.91 K/mm3 (0.9-3.2); Lymphocytes Percent Auto 27.6 % (18.3-44.2); Mean Corpuscular HGB Conc 33.6 g/dl (32-36); Mean Corpuscular Hemoglobin 31.7 pg (26-34); Mean Corpuscular Volume 94.4 fl (80-100); Mean Platelet Volume 10.9 fl (7.4-10.4); Monocytes Absolute Auto 0.8 K/mm3 (0.1-0.6); Monocytes Percent Auto 7.5 % (2.6-8.5); Neutrophils Absolute Auto 6.5 K/mm3 (1.3-6.7); Neutrophils Percent Auto 61.9 % (45.5-73.1); Platelet Count Result 163 k/mm3 (150-375); Red Blood Count 4.63 M/mm3 (4.6-6.20); Red Cell Distribution Width 14.7 % (11.5-14.5); White Blood Count 10.5 K/mm3 (4.5-10.0)
[2021-01-11] MEDS: levETIRAcetam 500MG/NACL 100ML 500 MG/100 ML BAG 400 MG IVPB (01:01)
[2021-01-11 01:05] LABS: Add Urine Microscopic? NO; Appearance Urine Clear (Clear); Bilirubin Urine Negative (Negative); Blood Urine Negative (Negative); Color Urine Yellow (Yellow); Glucose Urine UA Negative (Negative); Ketones Urine Negative (Negative); Leukocyte Esterase Ur Negative LEU/UL (Negative); Nitrate Urine Negative (Negative); Protein Urine Negative (Negative); Specific Grav Ur 1.008 (1.001-1.035); Urobilinogen Urine Negative mg/dL (<2.0)
[2021-01-11 01:14] LABS: Ethanol < 10 mg/dL (<10)
[2021-01-11 01:15] LABS: Albumin Level 4.8 g/dL (3.5-5.1); Alkaline Phosphatase 132 U/L (38-126); Anion Gap 25 mmol/L (8-16); Aspartate Amino Transferase 40 U/L (17-59); Bilirubin,Total 0.6 mg/dL (0.2-1.3); Blood Urea Nitrogen 7 mg/dL (9-20); Carbon Dioxide 12 mmol/L (22-30); Chloride 103 mmol/L (98-107); Estimated Glomerular Filt Rate > 60; Glucose 215 mg/dL (65-110); Magnesium 2.4 mg/dL (1.6-2.3); Potassium 4.2 mmol/L (3.4-5.0); Sodium 140 mmol/L (137-145)
[2021-01-11 01:18] LABS: Amphetamine Screen Urine Negative (Negative); Barbiturate Screen Urine Negative (Negative); Benzodiazepines Screen Urine Negative (Negative); Cannabinoid Screen Urine Positive (Negative); Cocaine Screen Urine Negative (Negative); Methadone Screen Urine Negative (Negative); Opiate Screen Urine Positive (Negative); Phencyclidine Screen Urine Negative (Negative)
[2021-01-11 01:27] LABS: Alanine Aminotransferase 33 U/L (4-50)
[2021-01-11 01:36] LABS: Lactic Acid Reflex 14.3 mmol/L (0.7-2.1)
[2021-01-11] MEDS: SODIUM CHLORIDE 0.9% IV 1,000 ML 999 ML IV CONT (02:08)
--- NOTE | 2021-01-11 02:18 | ED.GENADULT ---
HPI - General Adult General Chief complaint: Seizure Stated complaint: seizure Time Seen by Provider: 01/11/21 00:38 History of Present Illness HPI narrative: Patient 55-year-old gentleman presents emerged department with chief complaint of seizure. Per the family the patient had multiple seizures at home he has history of seizure disorder and takes Keppra. Patient may or may not be compliant with his Keppra also has had a recent upper respiratory infection the family is concerned that he may have Covid. Patient is currently not able to provide any history due to being postictal Related Data Home Medications Medication Instructions Recorded Confirmed omeprazole 40 mg PO DAILY 01/17/20 10/25/20 Adults Multivitamin 1 tablet PO DAILY 02/16/20 10/25/20 Calcium 600 + D(3) 1 cap PO BID 02/16/20 10/25/20 gabapentin 800 mg PO QID 02/16/20 10/25/20 tenofovir disoproxil fumarate 300 mg PO DAILY 02/16/20 10/25/20 budesonide-formoterol [Symbicort] 2 puff INHALATION BID 08/26/20 10/25/20 ondansetron 8 mg TRANSLINGUAL Q8H PRN 09/22/20 10/25/20 albuterol sulfate See Rx Instructions .ROUTE .COMPLEX 09/23/20 10/25/20 oxycodone 20 mg PO Q4-6H 10/25/20 10/25/20 albuterol sulfate 2 puff INHALATION Q4-6H PRN 01/11/21 tamsulosin 0.4 mg PO DAILY 01/11/21 Allergies Allergy/AdvReac Type Severity Reaction Status Date / Time hornet venom Allergy Unknown Unknown Verified 01/11/21 00:44 strawberry Allergy Unknown Unknown Verified 01/11/21 00:44 ciprofloxacin Allergy Unknown Verified 01/11/21 00:44 fentanyl Allergy Unknown Verified 01/11/21 00:44 metronidazole AdvReac Unknown Nausea And Verified 01/11/21 00:44 Vomiting Review of Systems Review of Systems: A 10 system review of systems was completed on the patient and is negative except for what is stated in the HPI. Nursing and ancillary documentation was reviewed. [facility] Past Medical History Medical History Alcohol abuse Most recent use 10/29/2020 Chronic pain syndrome Cirrhosis COPD (chronic obstructive pulmonary disease) GERD (gastroesophageal reflux disease) Hepatic encephalopathy Hepatocellular carcinoma radiation treatment Hepatocellular carcinoma History of hepatitis B Hx of peptic ulcer as a child Seizure Seizure Surgical History Surgical History History of cholecystectomy History of tibial fracture requiring surgical repair. Family History Family History Father Hypertension Cerebrovascular accident Myocardial infarct Sibling Hypertension Sibling Hypertension Father Hypertension Cerebrovascular accident Family history of coronary artery disease Sibling Hypertension Social History Social History Social History: Smokes 1/2 ppd since 17yo. He is trying to quit. Lives at home with his and children. He is a full code. The patient had 7 children. He is on disability. The patient continues to use marijuana gummies. He no longer uses cocaine or other illicit drugs. Smoking packs per day: 0.5 Smoking cigarettes per day: 10.0 Years smoked: 37 Smoking pack-years: 18.50 Smoking status: Current every day smoker Tobacco type: cigarettes Second hand tobacco smoke exposure: No Smoking end date: 03/01/13 Alcohol use details: Alcohol use noted 10/29/2020 with etoh level of 24. Substance use: former Substance use type: prescription drug Other substance usage details: has not had alcohol in 16 years/ was never a heavy drinker per Last use: no meth/cocaine in 16 years/uses marijuana currently for pain/appetite Gender identity (if verbalized by the patient): Male Spiritual care concerns: No Agree to blood products: Yes Exam Narrative: GENERAL: Well-appearing, well-n
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
[2021-01-11 03:52] LABS: Ammonia < 9 umol/L (9-30)
[2021-01-11 03:53] LABS: Lactic Acid Reflex 1.9 mmol/L (0.7-2.1)
[2021-01-11 03:57] LABS: Beta-Hydroxybutyrate/Acetoacetate 0.32 mmol/L (0.02-0.27)
[2021-01-11 03:58] LABS: Reflex Lactic Acid Yes or No Add Lactic
[2021-01-11] MEDS: ONDANSETRON INJ 4 MG/2 ML VIAL IV PUSH (04:04)
[2021-01-11 17:30] LABS: SARS-CoV-2 RNA PCR Negative
== END 2021-01-11 04:53 | disposition home or self-care (01) ==
PROVIDERS: Emergency Provider Emergency Medicine; PCP Family Medicine
DX: G40.909 Epilepsy, unspecified, not intractable, without status epilepticus (principal); J44.9 Chronic obstructive pulmonary disease, unspecified; F17.210 Nicotine dependence, cigarettes, uncomplicated; Z20.822 Contact with and (suspected) exposure to COVID-19; Z86.19 Personal history of other infectious and parasitic diseases; Z79.899 Other long term (current) drug therapy
CPT/HCPCS: 36415; 80053; 80307; 81003; 82010; 82140; 83605; 83735; 85025; 93005; 96361; 96365; 96375; 99284; C9803; J1953; J2405; J7030; U0003; U0005

== ENCOUNTER 2021-01-14 12:42 | Emergency (ER) | payer MEDICARE, MEDICAID, SELFPAY ==
--- NOTE | 2021-01-14 12:45 | ED.URI ---
HPI - URI/Sore Throat General Chief Complaint: Upper Respiratory Infection Stated Complaint: Congestion,Cough Time Seen by Provider: 01/14/21 12:45 Source: patient, family and RN notes reviewed History of Present Illness HPI Narrative: Patient is a 55-year-old male who presents the urgent care with his spouse with complaint 2-week history of cough, nasal drainage and congestion. Patient states is been ongoing for approximately 2 weeks. Patient was seen in the emergency room a few days ago and tested negative for Covid at that time. Patient was being seen for a seizure and spouse states that they did not treat the upper respiratory infection and told him to follow-up outpatient at the urgent care if symptoms does not improve . Spouse states that everyone in the home is sick and they are requesting antibiotics because they are helping with other his symptoms . Denies of any fever, nausea, vomiting. Denies of any shortness of breath or chest pain. No other acute complaints. No acute distress noted. Spouse and patient aware of the plan of care. Some parts of this dictation were generated by voice recognition software and may contain typographical and/or grammatical inaccuracies. Related Data Home Medications Medication Instructions Recorded Confirmed omeprazole 40 mg PO DAILY 01/17/20 10/25/20 Adults Multivitamin 1 tablet PO DAILY 02/16/20 10/25/20 Calcium 600 + D(3) 1 cap PO BID 02/16/20 10/25/20 gabapentin 800 mg PO QID 02/16/20 10/25/20 tenofovir disoproxil fumarate 300 mg PO DAILY 02/16/20 10/25/20 budesonide-formoterol [Symbicort] 2 puff INHALATION BID 08/26/20 10/25/20 ondansetron 8 mg TRANSLINGUAL Q8H PRN 09/22/20 10/25/20 albuterol sulfate See Rx Instructions .ROUTE .COMPLEX 09/23/20 10/25/20 oxycodone 20 mg PO Q4-6H 10/25/20 10/25/20 albuterol sulfate 2 puff INHALATION Q4-6H PRN 01/11/21 tamsulosin 0.4 mg PO DAILY 01/11/21 Allergies Allergy/AdvReac Type Severity Reaction Status Date / Time hornet venom Allergy Unknown Unknown Verified 01/11/21 00:44 strawberry Allergy Unknown Unknown Verified 01/11/21 00:44 ciprofloxacin Allergy Unknown Verified 01/11/21 00:44 fentanyl Allergy Unknown Verified 01/11/21 00:44 metronidazole AdvReac Unknown Nausea And Verified 01/11/21 00:44 Vomiting Review of Systems Review of Systems: CONSTITUTIONAL: Denies fever, chills, or sweats. EYES: Denies visual changes, redness, or discharge. ENT: Reports of congestion, rhinorrhea CARDIOVASCULAR: Denies chest pain, palpitations, or edema. RESPIRATORY: Reports of cough without dyspnea GASTROINTESTINAL: Denies abdominal pain, nausea, vomiting, or diarrhea. GENITOURINARY: Denies dysuria or hematuria. SKIN: Denies rash or itching. MUSCULOSKELETAL: Denies back pain, joint pain, or myalgia. NEUROLOGIC: Denies headache, numbness, or weakness. All other systems reviewed are negative, except as documented in HPI. [facility] Past Medical History Medical History Alcohol abuse Most recent use 10/29/2020 Chronic pain syndrome Cirrhosis COPD (chronic obstructive pulmonary disease) GERD (gastroesophageal reflux disease) Hepatic encephalopathy Hepatocellular carcinoma radiation treatment Hepatocellular carcinoma History of hepatitis B Hx of peptic ulcer as a child Seizure Seizure Surgical History Surgical History History of cholecystectomy History of tibial fracture requiring surgical repair. Family History Family History Father Hypertension Cerebrovascular accident Myocardial infarct Sibling Hypertension Sibling Hypertension Father Hypertension Cerebrovascular accident Family history of coronary artery disease Sibling Hypertension Social History Social History Social Histor
[2021-01-14 12:48] VITALS: BP 153/82; PULSE 92; RESP 20; TEMP 37.2; O2SAT 99
== END 2021-01-14 13:05 | disposition home or self-care (01) ==
PROVIDERS: Emergency Provider Nurse Practitioner Family
DX: R05.9 Cough, unspecified (principal); J32.9 Chronic sinusitis, unspecified; F17.210 Nicotine dependence, cigarettes, uncomplicated; K74.60 Unspecified cirrhosis of liver; J44.9 Chronic obstructive pulmonary disease, unspecified; K21.9 Gastro-esophageal reflux disease without esophagitis; Z85.05 Personal history of malignant neoplasm of liver; G40.909 Epilepsy, unspecified, not intractable, without status epilepticus
CPT/HCPCS: 99213; G0463

== ENCOUNTER 2021-03-28 19:25 | Emergency (ER) | payer MEDICARE, MEDICAID, SELFPAY ==
--- NOTE | ~2021-03-28 | CT_ITS ---
EXAMINATION: CT brain wo con DATE: 03/28/2021 20:17 INDICATION: Altered mental status TECHNIQUE: Computed tomography (CT) of the head was performed without intravenous contrast. The mA wa s adjusted according to patient size. Iterative reconstruction technique was employed. Exam dose: 60 5.33 mGy-cm total exam DLP. COMPARISON: 10/25/2020 CT brain FINDINGS: There are bilateral carotid siphon internal carotid artery calcifications. There is nonspecific diminished attenuation of the cerebral white matter, likely due to chronic small vessel ischemic changes. No intracranial mass lesion or hemorrhage or cerebrovascular accident is detected. There is no midlin e shift or mass effect. No subdural or epidural hematoma. No skull fracture or bone destruction is detected. Included paranasal sinuses and the mastoid air cells are unremarkable. IMPRESSION: Cerebral atherosclerosis and chronic small vessel ischemic changes of the cerebral white matter No acute intracranial finding Reviewed, dictated and finalized at [facility] Reviewed, dictated and finalized at [facility]. [facility]
[2021-03-28 19:30] VITALS: BP 154/90; PULSE 79; RESP 18; TEMP 36.6; O2SAT 97
--- NOTE | 2021-03-28 19:35 | ECG_ITS ---
Measurements Intervals [place] Rate: P: [place]: QRS: QRSD: T: QT: QTc: Interpretive Statements SINUS RHYTHM MINIMAL Q WAVES- ANTEROLATERAL LEADS BORDERLINE ST ABNORMALITY- ANTEROLAT/INF LEADS BASELINE ARTIFACT- I, AVR, AVL BORDERLINE ECG Electronically Signed On 04-02-2021 11:44:15 [employer] by Davidson Juarez D.O.
[2021-03-28 20:11] LABS: Add Urine Microscopic? YES; Appearance Urine Clear (Clear); Bilirubin Urine Negative (Negative); Blood Urine Negative (Negative); Color Urine Yellow (Yellow); Glucose Urine UA Negative (Negative); Ketones Urine Negative (Negative); Leukocyte Esterase Ur Negative LEU/UL (Negative); Nitrate Urine Negative (Negative); Protein Urine 2+ mg/dL (Negative); RBC Urine 0-2 /hpf (0-2); Specific Grav Ur 1.021 (1.001-1.035); Squamous Epithelial Cell Urine Rare /hpf (Few); WBC Urine 0-3 /hpf
[2021-03-28] MEDS: SODIUM CHLORIDE 0.9% IV 1,000 ML 999 ML IV CONT (20:30)
[2021-03-28] MEDS: levETIRAcetam 1000MG/NACL100ML 1,000 MG/100 ML BAG 400 MG IVPB (20:40)
[2021-03-28 20:53] VITALS: O2SAT 96
[2021-03-28 20:59] VITALS: BP 156/93; PULSE 81; RESP 12; O2SAT 96
[2021-03-28 20:59] LABS: Basophils Percent Auto 0.2 % (0.2-1.2); Eosinophils Absolute Auto 0.1 K/mm3 (0-0.3); Eosinophils Percent Auto 1.6 % (0-4.4); Hematocrit 34.9 % (42.0-52.0); Hemoglobin 12.1 g/dL (14.0-18.0); Immature Granulocyte Absolute 0.01 K/mm3 (0.00-0.031); Immature Granulocyte Percent A 0.2 % (0-0.5); Lymphocytes Absolute Auto 0.51 K/mm3 (0.9-3.2); Mean Corpuscular HGB Conc 34.7 g/dl (32-36); Mean Corpuscular Hemoglobin 31.2 pg (26-34); Mean Corpuscular Volume 89.9 fl (80-100); Mean Platelet Volume 10.8 fl (7.4-10.4); Monocytes Absolute Auto 0.3 K/mm3 (0.1-0.6); Monocytes Percent Auto 7.7 % (2.6-8.5); Neutrophils Absolute Auto 3.3 K/mm3 (1.3-6.7); Neutrophils Percent Auto 78.3 % (45.5-73.1); Platelet Count Result 77 k/mm3 (150-375); Red Blood Count 3.88 M/mm3 (4.6-6.20); Red Cell Distribution Width 15.3 % (11.5-14.5); White Blood Count 4.3 K/mm3 (4.5-10.0)
[2021-03-28] MEDS: LORazepam INJ (*CRX) 2 MG/ML VIAL 1 MG IV PUSH (20:59)
[2021-03-28 21:13] LABS: Ethanol < 10 mg/dL (<10)
[2021-03-28 21:18] LABS: Alanine Aminotransferase 19 U/L (4-50); Alkaline Phosphatase 87 U/L (38-126); Anion Gap 5 mmol/L (8-16); Aspartate Amino Transferase 27 U/L (17-59); Bilirubin,Total 0.4 mg/dL (0.2-1.3); Blood Urea Nitrogen 7 mg/dL (9-20); Calcium 8.8 mg/dL (8.4-10.2); Carbon Dioxide 27 mmol/L (22-30); Chloride 109 mmol/L (98-107); Estimated CRCL calculation 77 ml/min; Estimated Glomerular Filt Rate > 60; Glucose 121 mg/dL (65-110); INR 1.1; Potassium 2.8 mmol/L (3.4-5.0); Prothrombin Time 14.1 Seconds (11.1-14.7); Sodium 141 mmol/L (137-145)
[2021-03-28 21:19] LABS: Partial Thromboplastin Time 27.7 SECONDS (22.3-36.8)
[2021-03-28 21:28] LABS: Amphetamine Screen Urine Negative (Negative); Barbiturate Screen Urine Negative (Negative); Benzodiazepines Screen Urine Negative (Negative); Cannabinoid Screen Urine Positive (Negative); Cocaine Screen Urine Negative (Negative); Methadone Screen Urine Negative (Negative); Opiate Screen Urine Negative (Negative); Phencyclidine Screen Urine Negative (Negative)
--- NOTE | 2021-03-28 21:46 | ED.GENADULT ---
HPI - General Adult General Chief complaint: Seizure Stated complaint: altered Time Seen by Provider: 03/28/21 19:47 History of Present Illness HPI narrative: Patient 55-year-old gentleman who presents the emergency department chief complaint of altered mental status. The patient has history of seizure disorder and the family found him not his usual self. They noticed no active seizing in their presence the looked at his bottle of Keppra noticed that he had not been taking the normal amount. Patient denies any complaints states he does not remember what happened Related Data Home Medications Medication Instructions Recorded Confirmed omeprazole 40 mg PO DAILY 01/17/20 10/25/20 Adults Multivitamin 1 tablet PO DAILY 02/16/20 10/25/20 Calcium 600 + D(3) 1 cap PO BID 02/16/20 10/25/20 gabapentin 800 mg PO QID 02/16/20 10/25/20 tenofovir disoproxil fumarate 300 mg PO DAILY 02/16/20 10/25/20 budesonide-formoterol [Symbicort] 2 puff INHALATION BID 08/26/20 10/25/20 ondansetron 8 mg TRANSLINGUAL Q8H PRN 09/22/20 10/25/20 albuterol sulfate See Rx Instructions .ROUTE .COMPLEX 09/23/20 10/25/20 oxycodone 20 mg PO Q4-6H 10/25/20 10/25/20 albuterol sulfate 2 puff INHALATION Q4-6H PRN 01/11/21 tamsulosin 0.4 mg PO DAILY 01/11/21 Allergies Allergy/AdvReac Type Severity Reaction Status Date / Time hornet venom Allergy Unknown Unknown Verified 03/28/21 20:32 strawberry Allergy Unknown Unknown Verified 03/28/21 20:32 ciprofloxacin Allergy Unknown Verified 03/28/21 20:32 fentanyl Allergy Unknown Verified 03/28/21 20:32 metronidazole AdvReac Unknown Nausea And Verified 03/28/21 20:32 Vomiting Review of Systems Review of Systems: A 10 system review of systems was completed on the patient and is negative except for what is stated in the HPI. Nursing and ancillary documentation was reviewed. [facility] Past Medical History Medical History Alcohol abuse Most recent use 10/29/2020 Chronic pain syndrome Cirrhosis COPD (chronic obstructive pulmonary disease) GERD (gastroesophageal reflux disease) Hepatic encephalopathy Hepatocellular carcinoma radiation treatment Hepatocellular carcinoma History of hepatitis B Hx of peptic ulcer as a child Seizure Seizure Surgical History Surgical History History of cholecystectomy History of tibial fracture requiring surgical repair. Family History Family History Father Hypertension Cerebrovascular accident Myocardial infarct Sibling Hypertension Sibling Hypertension Father Hypertension Cerebrovascular accident Family history of coronary artery disease Sibling Hypertension Social History Social History Social History: Smokes 1/2 ppd since 17yo. He is trying to quit. Lives at home with his and children. He is a full code. The patient had 7 children. He is on disability. The patient continues to use marijuana gummies. He no longer uses cocaine or other illicit drugs. Smoking packs per day: 0.5 Smoking cigarettes per day: 10.0 Years smoked: 37 Smoking pack-years: 18.50 Smoking status: Current every day smoker Tobacco type: cigarettes Second hand tobacco smoke exposure: No Smoking end date: 03/01/13 Alcohol use details: Alcohol use noted 10/29/2020 with etoh level of 24. Substance use: former Substance use type: prescription drug Other substance usage details: has not had alcohol in 16 years/ was never a heavy drinker per Last use: no meth/cocaine in 16 years/uses marijuana currently for pain/appetite Gender identity (if verbalized by the patient): Male Spiritual care concerns: No Agree to blood products: Yes Exam Narrative: GENERAL: Well-appearing, well-nourished, an
[2021-03-28 21:55] LABS: Magnesium 1.9 mg/dL (1.6-2.3)
[2021-03-28 21:56] VITALS: BP 140/86; PULSE 81; RESP 17; O2SAT 98
[2021-03-28] MEDS: POTASSIUM CHLORIDE 20 MEQ PACKET (FOR LIQUID) 40 MEQ PO (23:08)
[2021-03-28 23:12] VITALS: BP 141/91; PULSE 88; RESP 24; O2SAT 98
== END 2021-03-28 23:14 | disposition home or self-care (01) ==
PROVIDERS: Emergency Medicine; Emergency Provider Emergency Medicine; PCP Family Medicine
DX: G40.909 Epilepsy, unspecified, not intractable, without status epilepticus (principal); E87.6 Hypokalemia; K74.60 Unspecified cirrhosis of liver; K21.9 Gastro-esophageal reflux disease without esophagitis; J44.9 Chronic obstructive pulmonary disease, unspecified; K72.90 Hepatic failure, unspecified without coma; G89.4 Chronic pain syndrome; Z85.05 Personal history of malignant neoplasm of liver; Z86.19 Personal history of other infectious and parasitic diseases; Z92.3 Personal history of irradiation
CPT/HCPCS: 36415; 70450; 80053; 80307; 81001; 83735; 85025; 85610; 85730; 93005; 96361; 96365; 96375; 99284; A9270; J1953; J2060; J7030

== ENCOUNTER 2021-05-02 13:59 | Emergency (ER) | payer MEDICARE, MEDICAID, SELFPAY ==
--- NOTE | ~2021-05-02 | CT_ITS ---
EXAMINATION: CT abdomen pelvis w con DATE: 05/02/2021 15:40 INDICATION: Right upper quadrant abdominal pain. TECHNIQUE: Computed tomography (CT) of the abdomen and pelvis was performed with 100 mL Omnipaque 350 intravenous contrast. Automated exposure control and iterative reconstruction technique were employe d. The dose-length product was 300.97 mGy-cm. COMPARISON: CT abdomen and pelvis 10/25/2020, 07/10/20, 05/22/17 FINDINGS: The visualized portions of the lung bases demonstrate emphysema. There are mild groundglass opacities in the lower lobes and right middle lobe. There is mild atelectasis in lingula. No pleural effusion. The heart size is normal. No pericardial effusion. Paraesophageal varices are noted. The l iver demonstrates surface nodularity, consistent with cirrhosis. There is a 2.9 x 1.7 cm low-attenuat ion mass in left hepatic lobe near the hilum. There is mild biliary duct dilatation in medial segment left hepatic lobe. There is splenomegaly measuring 13.5 cm. There are changes of cholecystectomy. Th e pancreas, adrenal glands, and kidneys are normal. The prostate is mildly enlarged. There are no dil ated loops of bowel. The appendix is normal. There are no pathologically enlarged lymph nodes. There is no free intraperitoneal fluid. There is severe lumbar spondylosis. IMPRESSION: 1. Cirrhosis of liver with portal venous hypertension. 2. 2.9 cm liver mass, stable from 07/10/20 and new from 05/22/17. This finding is intermediate probabil ity for hepatocellular carcinoma. 3. Mild groundglass opacities in the lower lobes and right middle lobe, consistent with mild pulmonar y edema versus pneumonia such as COVID-19 pneumonia. Reviewed, dictated and finalized at [facility]. [facility] IMPRESSION: 1. Cirrhosis of liver with portal venous hypertension. 2. 2.9 cm liver mass, stable from 07/10/20 and new from 05/22/17. This finding is intermediate probability for hepatocellular carcinoma. 3. Mild groundglass opacities in the lower lobes and right middle lobe, consist ent with mild pulmonary edema versus pneumonia such as COVID-19 pneumonia.
[2021-05-02 13:59] VITALS: BP 152/84; PULSE 109; RESP 20; O2SAT 100
[2021-05-02 14:38] LABS: Basophils Percent Auto 0.1 % (0.2-1.2); Eosinophils Percent Auto 0.1 % (0-4.4); Hematocrit 41.2 % (42.0-52.0); Immature Granulocyte Absolute 0.03 K/mm3 (0.00-0.031); Immature Granulocyte Percent A 0.3 % (0-0.5); Lymphocytes Absolute Auto 0.54 K/mm3 (0.9-3.2); Lymphocytes Percent Auto 6.1 % (18.3-44.2); Mean Corpuscular Hemoglobin 31.7 pg (26-34); Mean Corpuscular Volume 93.2 fl (80-100); Mean Platelet Volume 12.1 fl (7.4-10.4); Monocytes Absolute Auto 0.3 K/mm3 (0.1-0.6); Monocytes Percent Auto 2.9 % (2.6-8.5); Neutrophils Percent Auto 90.5 % (45.5-73.1); Platelet Count Result 89 k/mm3 (150-375); Red Blood Count 4.42 M/mm3 (4.6-6.20); Red Cell Distribution Width 15.6 % (11.5-14.5); White Blood Count 8.9 K/mm3 (4.5-10.0)
[2021-05-02 14:47] LABS: Alanine Aminotransferase 21 U/L (4-50); Albumin Level 4.8 g/dL (3.5-5.1); Alkaline Phosphatase 96 U/L (38-126); Anion Gap 14 mmol/L (8-16); Aspartate Amino Transferase 33 U/L (17-59); Bilirubin,Total 0.3 mg/dL (0.2-1.3); Blood Urea Nitrogen 9 mg/dL (9-20); Calcium 10.1 mg/dL (8.4-10.2); Carbon Dioxide 23 mmol/L (22-30); Chloride 108 mmol/L (98-107); Estimated CRCL calculation 75 ml/min; Estimated Glomerular Filt Rate > 60; Glucose 127 mg/dL (65-110); Sodium 145 mmol/L (137-145)
[2021-05-02] MEDS: ONDANSETRON INJ 4 MG/2 ML VIAL IV PUSH (15:07)
[2021-05-02] MEDS: MORPHINE SULFATE (*CRX) 4 MG/ML INJ IV PUSH (15:07)
--- NOTE | 2021-05-02 15:08 | ED.SEIZURE ---
HPI - Seizure General Chief Complaint: Seizure Stated Complaint: SZ Time Seen by Provider: 05/02/21 14:36 Source: patient and family History of Present Illness HPI Narrative: Patient presents with multiple complaints main concern voiced by patient and family are regarding his medication. Family reports they were seeing a Dr. Shankar he was in a bad accident and retired they were then seen multiple providers through their clinic and now no one will see him when he was due for a medication refill. He of his pain medications and his seizure medications patient reports he has been out of his medications for 1 to 2 weeks and has been feeling bad since then reports he feels diffusely weak is having right upper quadrant abdominal pain and family notes multiple seizures at home. Patient reports he always had this pain when he was out of his pain medication. Is now reporting he has nausea and vomiting for the past 1 to 2 days. Reports subjective fevers denies cough or congestion. He also reports diarrhea. Seizure History: Yes Related Data Home Medications Medication Instructions Recorded Confirmed omeprazole 40 mg PO DAILY 01/17/20 10/25/20 Adults Multivitamin 1 tablet PO DAILY 02/16/20 10/25/20 Calcium 600 + D(3) 1 cap PO BID 02/16/20 10/25/20 gabapentin 800 mg PO QID 02/16/20 10/25/20 tenofovir disoproxil fumarate 300 mg PO DAILY 02/16/20 10/25/20 budesonide-formoterol [Symbicort] 2 puff INHALATION BID 08/26/20 10/25/20 ondansetron 8 mg TRANSLINGUAL Q8H PRN 09/22/20 10/25/20 albuterol sulfate See Rx Instructions .ROUTE .COMPLEX 09/23/20 10/25/20 oxycodone 20 mg PO Q4-6H 10/25/20 10/25/20 albuterol sulfate 2 puff INHALATION Q4-6H PRN 01/11/21 tamsulosin 0.4 mg PO DAILY 01/11/21 Allergies Allergy/AdvReac Type Severity Reaction Status Date / Time hornet venom Allergy Unknown Unknown Verified 03/28/21 20:32 strawberry Allergy Unknown Unknown Verified 03/28/21 20:32 ciprofloxacin Allergy Unknown Verified 03/28/21 20:32 fentanyl Allergy Unknown Verified 03/28/21 20:32 metronidazole AdvReac Unknown Nausea And Verified 03/28/21 20:32 Vomiting Review of Systems Review of Systems: CONSTITUTIONAL: Reports subjective fevers EYES: Denies visual changes, redness, or discharge. ENT: Denies rhinorrhea, congestion, sore throat, or otalgia. CARDIOVASCULAR: Denies chest pain, palpitations, or edema. RESPIRATORY: Denies cough or dyspnea. GASTROINTESTINAL: Right upper quadrant abdominal pain nausea and vomiting with diarrhea. GENITOURINARY: Denies dysuria or hematuria. SKIN: Denies rash or itching. MUSCULOSKELETAL: Denies back pain, joint pain, or myalgia. NEUROLOGIC: Denies headache, numbness, dizziness, or weakness. PSYCHIATRIC: Denies anxiety or depression. All systems reviewed & are unremarkable except as noted in HPI and below PMFSH Past Medical History Medical History Alcohol abuse Most recent use 10/29/2020 Chronic pain syndrome Cirrhosis COPD (chronic obstructive pulmonary disease) GERD (gastroesophageal reflux disease) Hepatic encephalopathy Hepatocellular carcinoma radiation treatment Hepatocellular carcinoma History of hepatitis B Hx of peptic ulcer as a child Seizure Seizure Surgical History Surgical History History of cholecystectomy History of tibial fracture requiring surgical repair. Family History Family History Father Hypertension Cerebrovascular accident Myocardial infarct Sibling Hypertension Sibling Hypertension Father Hypertension Cerebrovascular accident Family history of coronary artery disease Sibling Hypertension Social History Social History Social History: Smokes 1/2 ppd since 17yo. He is trying to quit. Lives at home with his and c
[2021-05-02] MEDS: levETIRAcetam 1000MG/NACL100ML 1,000 MG/100 ML BAG 400 MG IVPB (15:17)
[2021-05-02] MEDS: GABAPENTIN 300 MG CAPSULE 600 MG PO (15:22)
[2021-05-02 15:46] LABS: Add Urine Microscopic? YES; Appearance Urine Clear (Clear); Bacteria Urine Trace /hpf; Bilirubin Urine Negative (Negative); Blood Urine Negative (Negative); Color Urine Yellow (Yellow); Glucose Urine UA Negative (Negative); Ketones Urine Trace mg/dL (Negative); Leukocyte Esterase Ur Negative LEU/UL (Negative); Mucus Urine Rare /lpf; Nitrate Urine Negative (Negative); Protein Urine 2+ mg/dL (Negative); Urobilinogen Urine Negative mg/dL (<2.0); WBC Urine 0-3 /hpf
[2021-05-02 15:47] LABS: Specific Grav Ur 1.031 (1.001-1.035)
[2021-05-02] MEDS: cloNIDine HCL 0.1 MG TABLET PO (16:33)
[2021-05-02] MEDS: SODIUM CHLORIDE 0.9% IV 1,000 ML 500 ML (16:33)
[2021-05-02] MEDS: SODIUM CHLORIDE 0.9% IV 500 ML 999 ML IV CONT (16:37)
[2021-05-02] MEDS: KETOROLAC 15 MG/ML VIAL (*BKC) IV PUSH (16:46)
[2021-05-02 16:47] VITALS: BP 136/75; PULSE 91; RESP 25; O2SAT 97
[2021-05-06 10:54] LABS: Levetiracetam Keppra 20.1 mcg/mL (12.0-46.0)
== END 2021-05-02 17:04 | disposition home or self-care (01) ==
PROVIDERS: Emergency Provider Emergency Medicine; PCP Family Medicine
DX: J18.9 Pneumonia, unspecified organism (principal); R10.11 Right upper quadrant pain; G40.909 Epilepsy, unspecified, not intractable, without status epilepticus; G89.4 Chronic pain syndrome; T42.6X6A Underdosing of other antiepileptic and sedative-hypnotic drugs, initial encounter; Z91.138 Patient's unintentional underdosing of medication regimen for other reason; J44.9 Chronic obstructive pulmonary disease, unspecified; K74.60 Unspecified cirrhosis of liver; K21.9 Gastro-esophageal reflux disease without esophagitis; Z85.05 Personal history of malignant neoplasm of liver; Z92.3 Personal history of irradiation; Z86.19 Personal history of other infectious and parasitic diseases; Z87.891 Personal history of nicotine dependence; K76.6 Portal hypertension; R16.0 Hepatomegaly, not elsewhere classified
CPT/HCPCS: 36415; 74177; 80053; 80177; 81001; 85025; 93005; 96361; 96374; 96375; 99284; A9270; J1885; J1953; J2270; J2405; J7030; J7040; Q9967

== ENCOUNTER 2021-08-21 12:18 | Emergency (ER) | payer MEDICARE, MEDICAID, SELFPAY ==
[2021-08-21] VITALS (20 sets, daily range): BP systolic 121–137; BP diastolic 70–86; PULSE 79–93; RESP 16–41; TEMP 36.6; O2SAT 93–100
--- NOTE | ~2021-08-21 | XR_ITS ---
EXAMINATION: XR chest 2V DATE: 08/21/2021 12:55 INDICATION: Chest pain. Shortness of breath. TECHNIQUE: Frontal and lateral views of the chest were obtained. COMPARISON: Chest single view 10/25/2020 FINDINGS: There are lucencies in the lungs, consistent with emphysema. There is mild scarring at the lung apices. No pleural effusion or pneumothorax. The heart size is normal. IMPRESSION: 1. Emphysema. Reviewed, dictated and finalized at [facility]. IMPRESSION: 1. Emphysema.
--- NOTE | ~2021-08-21 | CT_ITS ---
EXAMINATION: CT abdomen pelvis w con DATE: 08/21/2021 14:31 INDICATION: Epigastric pain, nausea and vomiting TECHNIQUE: Computed tomography (CT) of the abdomen and pelvis was performed with 100 mL Omnipaque-300 intravenous contrast. Automated exposure control and iterative reconstruction technique were employe d. The dose-length product was 193.97 mGy-cm. COMPARISON: 05/02/2021 FINDINGS: Mild emphysema at the lung bases. Mild discoid atelectasis/scarring at the posterior medial left lowe r lobe. Heart size is normal. Shrunken and nodular cirrhotic liver. Splenomegaly as well as prominent paraesophageal varices consistent with secondary portal venous hypertension. Mild intrahepatic bilia ry ductal dilation in the lateral segment of the left hepatic lobe peripheral to an ill-defined 2.2 x 2.0 cm hypoenhancing mass at the left side of the luiza hepatis which is concerning for malignancy. Cholecystectomy clips the gallbladder fossa. Pancreas, bilateral adrenal glands and kidneys are meka l. A few scattered diverticula along the sigmoid colon without adjacent inflammatory change to sugges t diverticular colitis. Small bowel and appendix are normal. Calcifications within the mildly enlarge d prostate. Bladder is normal. No free intraperitoneal gas or fluid. No pathologically enlarged abdom inal or pelvic lymphadenopathy. Mild lower lumbar levocurvature with severe spondylosis. IMPRESSION: 1. Cirrhosis with portal venous hypertension including secondary splenomegaly and prominent paraesoph ageal varices. 2. Persistent 2.2 x 2.0 cm ill-defined mass in the left hepatic lobe with more peripheral mild intrah epatic ductal dilation in the lateral segment left hepatic lobe which raises concern for malignancy e ither hepatocellular carcinoma or cholangiocarcinoma. There has however been no significant progressi on since 07/18/2020 which could be due to either an alternative benign etiology for the mass or interv al treatment. Correlate with clinical history. 3.. Reviewed, dictated and finalized at [facility]. IMPRESSION: 1. Cirrhosis with portal venous hypertension including secondary splenomegaly a nd prominent paraesophageal varices. 2. Persistent 2.2 x 2.0 cm ill-defined mass in the left hepatic lobe with more peripheral mild intrahepatic ductal dilation in the lateral segment left hepati c lobe which raises concern for malignancy either hepatocellular carcinoma or c holangiocarcinoma. There has however been no significant progression since 07/18 which could be due to either an alternative benign etiology for the mass or interval treatment. Correlate with clinical history. 3..
--- NOTE | 2021-08-21 12:44 | ECG_ITS ---
Measurements Intervals [place] Rate: 84 P: 80 [place]: 128 QRS: 43 QRSD: 90 T: 70 QT: 390 QTc: 463 Interpretive Statements DIFFICULT INTERPRETATION BECAUSE OF BASELINE ARTIFACT SINUS RHYTHM POSSIBLE LEFT ATRIAL ENLARGEMENT [-0.1mV P WAVE IN V1/V2] MINIMAL ST DEPRESSION [0.025+ mV ST DEPRESSION] COMPARED TO ECG 01/11/2021 01:03:28 NO OBVIOUS DIFFERENCE QUALITY OF THIS ECG IS SUBOPTIMAL Electronically Signed On 08-22-2021 16:27:54 CDT by Veto Valente M.D.
[2021-08-21 13:05] LABS: Basophils Percent Auto 0.2 % (0.2-1.2); Hematocrit 40.9 % (42.0-52.0); Hemoglobin 14.7 g/dL (14.0-18.0); Immature Granulocyte Absolute 0.06 K/mm3 (0.00-0.031); Immature Granulocyte Percent A 0.5 % (0-0.5); Lymphocytes Absolute Auto 0.63 K/mm3 (0.9-3.2); Lymphocytes Percent Auto 5.1 % (18.3-44.2); Mean Corpuscular HGB Conc 35.9 g/dl (32-36); Mean Corpuscular Volume 88.9 fl (80-100); Mean Platelet Volume 12.1 fl (7.4-10.4); Monocytes Absolute Auto 0.5 K/mm3 (0.1-0.6); Monocytes Percent Auto 3.8 % (2.6-8.5); Neutrophils Absolute Auto 11.2 K/mm3 (1.3-6.7); Neutrophils Percent Auto 90.4 % (45.5-73.1); Platelet Count Result 106 k/mm3 (150-375); Red Cell Distribution Width 13.3 % (11.5-14.5); White Blood Count 12.4 K/mm3 (4.5-10.0)
[2021-08-21 13:11] LABS: Alanine Aminotransferase 23 U/L (6-50); Albumin Level 4.7 g/dL (3.5-5.1); Alkaline Phosphatase 92 U/L (38-126); Anion Gap 13 mmol/L (8-16); Aspartate Amino Transferase 34 U/L (17-59); Bilirubin,Total 0.6 mg/dL (0.2-1.3); Blood Urea Nitrogen 11 mg/dL (9-20); Calcium 9.4 mg/dL (8.4-10.2); Carbon Dioxide 19 mmol/L (22-30); Chloride 110 mmol/L (98-107); Estimated CRCL calculation 60 ml/min; Estimated Glomerular Filt Rate > 60; Glucose 127 mg/dL (65-110); Lipase 28 U/L (23-300); Potassium 3.6 mmol/L (3.4-5.0); Sodium 142 mmol/L (137-145)
[2021-08-21] MEDS: MECLIZINE HCL 25 MG TABLET PO (13:14)
[2021-08-21] MEDS: ONDANSETRON INJ 4 MG/2 ML VIAL IV PUSH (13:14)
[2021-08-21] MEDS: SODIUM CHLORIDE 0.9% IV 1,000 ML 999 ML IV CONT (13:15)
[2021-08-21 13:22] LABS: INR 1.2; Partial Thromboplastin Time 27.6 SECONDS (22.3-36.8); Prothrombin Time 15.1 Seconds (11.1-14.7)
[2021-08-21 13:23] LABS: Troponin I < 0.012 ng/mL (0.000-0.034)
[2021-08-21] MEDS: MORPHINE SULFATE (*CRX) 4 MG/ML INJ IV PUSH (14:13)
--- NOTE | 2021-08-21 16:13 | ED.GENADULT ---
HPI - General Adult General Chief complaint: Nausea/Vomiting/Diarrhea Stated complaint: n/v with CP Time Seen by Provider: 08/21/21 12:47 History of Present Illness HPI narrative: Patient is a 55-year-old male who presents ER with dizziness and nausea and vomiting. Reports his symptoms began this morning around 5 AM. Symptoms have been persisted. Reports dizziness is rotational and caused him to be nauseated. Has history of liver disease and a mass on his liver. Follows with hepatology at [facility]. Has follow-up in a couple weeks. No recent fevers or chills or sweats. Has had some mild sinus congestion. Reports after vomiting he started having some chest discomfort that is central. Aching. Nonradiating. Denies history of coronary disease. No hematemesis. No blood in stool. Related Data Home Medications Medication Instructions Recorded Confirmed omeprazole 40 mg capsule,delayed 40 mg PO DAILY 01/17/20 10/25/20 release calcium carbonate 600 mg-vitamin 1 cap PO BID 02/16/20 10/25/20 D3 5 mcg (200 unit) capsule (Calcium 600 + D(3)) gabapentin 800 mg tablet 800 mg PO QID 02/16/20 10/25/20 multivit with minerals-iron 18 1 tablet PO DAILY 02/16/20 10/25/20 mg-folic ac 400 mcg-vit K 25 mcg tablet (Adults Multivitamin) tenofovir disoproxil fumarate 300 300 mg PO DAILY 02/16/20 10/25/20 mg tablet budesonide-formoterol HFA 160 2 puff inhalation BID 08/26/20 10/25/20 mcg-4.5 mcg/actuation aerosol inhaler (Symbicort) ondansetron 8 mg disintegrating 8 mg translingual Q8H PRN Nausea 09/22/20 10/25/20 tablet albuterol sulfate 2.5 mg/3 mL See Rx Instructions .Route .COMPLEX 09/23/20 10/25/20 (0.083 %) solution for nebulization oxycodone 20 mg tablet 20 mg PO Q4-6H 10/25/20 10/25/20 albuterol sulfate 90 mcg/actuation 2 puff inhalation Q4-6H PRN 01/11/21 aerosol inhaler Shortness Of Breath Or Wheezing tamsulosin 0.4 mg capsule 0.4 mg PO DAILY 01/11/21 Allergies Allergy/AdvReac Type Severity Reaction Status Date / Time hornet venom Allergy Unknown Unknown Verified 08/21/21 12:54 strawberry Allergy Unknown Unknown Verified 08/21/21 12:54 ciprofloxacin Allergy Unknown Verified 08/21/21 12:54 fentanyl Allergy Unknown Verified 08/21/21 12:54 metronidazole AdvReac Unknown Nausea And Verified 08/21/21 12:54 Vomiting Review of Systems Review of Systems: All systems reviewed & are unremarkable except as noted in HPI and below Constitutional: Constitutional: Denies chills and Denies fever(s) ENT: Denies dizziness and Reports nasal congestion Cardiovascular: Cardiovascular: Reports chest pain, Denies rapid heart rate and Denies radiating jaw, neck or arm pain Respiratory: Respiratory: Denies cough and Denies dyspnea Gastrointestinal: Gastrointestinal: Reports abdominal pain, Reports nausea and Reports vomiting Neurologic: Reports dizziness, Denies syncope, Denies headache(s), Denies focal weakness and Denies numbness PMFSH Past Medical History Medical History Alcohol abuse Most recent use 10/29/2020 Chronic pain syndrome Cirrhosis COPD (chronic obstructive pulmonary disease) GERD (gastroesophageal reflux disease) Hepatic encephalopathy Hepatocellular carcinoma radiation treatment Hepatocellular carcinoma History of hepatitis B Hx of peptic ulcer as a child Seizure Seizure Surgical History Surgical History History of cholecystectomy History of tibial fracture requiring surgical repair. Family History Family History Father Hypertension Cerebrovascular accident Myocardial infarct Sibling Hypertension Sibling Hypertension Father Hypertension Cerebrovascular accident Family history of coronary artery disease Sibling Hypertension Social History Social History (Reviewed 03/28/21 @ 21:47
== END 2021-08-21 16:15 | disposition home or self-care (01) ==
PROVIDERS: Emergency Medicine; Emergency Provider Emergency Medicine; PCP Family Medicine
DX: R42 Dizziness and giddiness (principal); R16.0 Hepatomegaly, not elsewhere classified; K74.60 Unspecified cirrhosis of liver; K72.90 Hepatic failure, unspecified without coma; J43.9 Emphysema, unspecified; K76.6 Portal hypertension; Z85.05 Personal history of malignant neoplasm of liver; K21.9 Gastro-esophageal reflux disease without esophagitis; R16.1 Splenomegaly, not elsewhere classified; Z86.19 Personal history of other infectious and parasitic diseases; Z92.3 Personal history of irradiation; F17.210 Nicotine dependence, cigarettes, uncomplicated; R94.31 Abnormal electrocardiogram [ECG] [EKG]
CPT/HCPCS: 36415; 71046; 74177; 80053; 83690; 84484; 85025; 85610; 85730; 93005; 96374; 96375; 99284; A9270; J2270; J2405; J7030; Q9967

== ENCOUNTER 2021-11-08 05:38 | Emergency (ER) | payer MEDICARE, MEDICAID, SELFPAY ==
--- NOTE | ~2021-11-08 | CT_ITS ---
EXAMINATION: CT brain wo con DATE: 11/08/2021 06:44 INDICATION: Seizure TECHNIQUE: Computed tomography (CT) of the head was performed without intravenous contrast. The mA wa s adjusted according to patient size. Iterative reconstruction technique was employed. Exam dose: 60 5.33 mGy-cm total exam DLP. COMPARISON: 03/28/2021 CT brain FINDINGS: Bilateral carotid siphon internal carotid artery calcifications. There is nonspecific dimin ished attenuation of the cerebral white matter, likely due to chronic small vessel ischemic changes. No intracranial mass lesion or hemorrhage, midline shift or mass effect. No subdural or epidural juan priyanka. No orbital lesion. No skull fracture or bone destruction. There is prominent soft tissue opacification within the right maxillary sinus and soft tissue thicken ing of right ethmoid air cells. IMPRESSION: Cerebral atherosclerosis and chronic small vessel ischemic changes of the cerebral white matter No acute intracranial finding Right maxillary and ethmoid sinus disease, new since 03/20/2021 Reviewed, dictated and finalized at [facility] Reviewed, dictated and finalized at [facility].
--- NOTE | ~2021-11-08 | CT_ITS ---
EXAMINATION: CT abdomen pelvis w con DATE: 11/08/2021 06:45 INDICATION: Epigastric abdominal pain, vomiting TECHNIQUE: Computed tomography (CT) of the abdomen and pelvis was performed with 100 CC Omnipaque 350 intravenous contrast. Automated exposure control and iterative reconstruction technique were employe d. Exam dose: 293.96 mGy-cm total exam DLP. COMPARISON: 08/21/2021 CT abdomen pelvis FINDINGS: Lung bases are clear. Normal heart size. No pericardial or pleural effusion. Small sliding hiatal hernia. Esophageal and gastric varices are noted. There is prominent surface nod ularity of liver consistent with cirrhosis. Approximately 1.7 x 2.4 cm area of hypoattenuation of the left hepatic lobe with left hepatic bile duct dilatation. Hepatocellular carcinoma or cholangiocarci noma are not excluded. Splenomegaly. No pancreatic mass lesion, calcification or pancreatic duct dilatation. Normal morphology of the adrenal glands. No renal mass lesion or urinary tract calculus or hydrourete ronephrosis. There is a focal calcification along the right posterolateral urinary bladder wall or less likely uri nary bladder calculus. Prone CT images can differentiate the two. There is atherosclerotic calcification but normal caliber of the abdominal aorta and iliac and femora l arteries. No intraperitoneal or retroperitoneal or pelvic mass lesion or adenopathy or ascites. There is prostate enlargement and calcification. The urinary bladder is unremarkable. Normal appendix. Prominent of fecal material in the rectum and colon down some: Fluid levels. No gregory l obstruction or intraperitoneal free air. No suspicious osteolytic or osteoblastic lesions. Degenerative disc disease at L4-5 IMPRESSION: Cirrhosis, esophageal and gastric varices and splenomegaly Approximately 1.7 x 2.4 cm hypoattenuating lesion of left hepatic lobe with left hepatic bile duct di latation; hepatocellular carcinoma and cholangiocarcinoma should be considered Reviewed, dictated and finalized at [facility]. Reviewed, dictated and finalized at [facility]. IMPRESSION: Cirrhosis, esophageal and gastric varices and splenomegaly Approximately 1.7 x 2.4 cm hypoattenuating lesion of left hepatic lobe with lef t hepatic bile duct dilatation; hepatocellular carcinoma and cholangiocarcinoma should be considered
[2021-11-08 05:40] VITALS: BP 145/85; PULSE 80; RESP 14; O2SAT 99
[2021-11-08] MEDS: PANTOPRAZOLE SODIUM IV 40 MG VIAL IV PUSH (05:54)
[2021-11-08] MEDS: SODIUM CHLORIDE 0.9% IV 1,000 ML 999 ML IV CONT ×2 (05:54→07:17)
[2021-11-08] MEDS: PROMETHAZINE HCL 25 MG/ML AMPUL 12.5 MG IV PUSH (05:54)
[2021-11-08 06:02] LABS: Basophils Percent Auto 0.4 % (0.2-1.2); Eosinophils Percent Auto 0.1 % (0-4.4); Hematocrit 40.5 % (42.0-52.0); Hemoglobin 14.3 g/dL (14.0-18.0); Immature Granulocyte Absolute 0.04 K/mm3 (0.00-0.031); Immature Granulocyte Percent A 0.4 % (0-0.5); Immature Platelet Fraction Pct 13.9 % (0.9-11.2); Lymphocytes Absolute Auto 0.63 K/mm3 (0.9-3.2); Lymphocytes Percent Auto 6.1 % (18.3-44.2); Mean Corpuscular HGB Conc 35.3 g/dl (32-36); Mean Corpuscular Volume 90.6 fl (80-100); Mean Platelet Volume 12.2 fl (7.4-10.4); Monocytes Absolute Auto 0.8 K/mm3 (0.1-0.6); Neutrophils Absolute Auto 8.8 K/mm3 (1.3-6.7); Platelet Count Result 76 k/mm3 (150-375); Red Blood Count 4.47 M/mm3 (4.6-6.20); Red Cell Distribution Width 13.9 % (11.5-14.5); White Blood Count 10.4 K/mm3 (4.5-10.0)
--- NOTE | 2021-11-08 06:10 | PC.NURSE ---
Pt only responsive to painful stimuli at this time.
[2021-11-08 06:11] LABS: Lactic Acid Reflex 2.4 mmol/L (0.7-2.0)
[2021-11-08 06:12] LABS: Alanine Aminotransferase 23 U/L (6-50); Albumin Level 4.5 g/dL (3.5-5.1); Alkaline Phosphatase 103 U/L (38-126); Anion Gap 12 mmol/L (8-16); Aspartate Amino Transferase 33 U/L (17-59); Bilirubin,Total 1.1 mg/dL (0.2-1.3); Blood Urea Nitrogen 10 mg/dL (9-20); Calcium 9.5 mg/dL (8.4-10.2); Carbon Dioxide 20 mmol/L (22-30); Chloride 104 mmol/L (98-107); Estimated CRCL calculation 62 ml/min; Estimated Glomerular Filt Rate > 60; Glucose 170 mg/dL (65-110); Lipase 41 U/L (23-300); Potassium 3.3 mmol/L (3.4-5.0); Sodium 136 mmol/L (137-145)
[2021-11-08 06:49] VITALS: BP 143/74; PULSE 101; RESP 16; O2SAT 99
[2021-11-08 07:11] VITALS: PULSE 89
[2021-11-08] MEDS: levETIRAcetam 1000MG/NACL100ML 1,000 MG/100 ML BAG 400 MG IVPB (07:17)
--- NOTE | 2021-11-08 07:18 | ED.GENADULT ---
HPI - General Adult General Chief complaint: Seizure Stated complaint: AMS Time Seen by Provider: 11/08/21 05:38 History of Present Illness HPI narrative: Patient is a 56-year-old male who presents ER with reports of seizure/confusion. Patient has history of seizure disorder and history of known liver mass. Apparently tonight family reported that he had a seizure and has also been sticking his fingers down his throat and attempt to vomit. Upon arrival here patient is awake and alert but not oriented. Intermittently follows commands. Related Data Home Medications Medication Instructions Recorded Confirmed omeprazole 40 mg capsule,delayed 40 mg PO DAILY 01/17/20 10/25/20 release calcium carbonate 600 mg-vitamin 1 cap PO BID 02/16/20 10/25/20 D3 5 mcg (200 unit) capsule (Calcium 600 + D(3)) gabapentin 800 mg tablet 800 mg PO QID 02/16/20 10/25/20 multivit with minerals-iron 18 1 tablet PO DAILY 02/16/20 10/25/20 mg-folic ac 400 mcg-vit K 25 mcg tablet (Adults Multivitamin) tenofovir disoproxil fumarate 300 300 mg PO DAILY 02/16/20 10/25/20 mg tablet budesonide-formoterol HFA 160 2 puff inhalation BID 08/26/20 10/25/20 mcg-4.5 mcg/actuation aerosol inhaler (Symbicort) ondansetron 8 mg disintegrating 8 mg translingual Q8H PRN Nausea 09/22/20 10/25/20 tablet albuterol sulfate 2.5 mg/3 mL See Rx Instructions .Route .COMPLEX 09/23/20 10/25/20 (0.083 %) solution for nebulization oxycodone 20 mg tablet 20 mg PO Q4-6H 10/25/20 10/25/20 albuterol sulfate 90 mcg/actuation 2 puff inhalation Q4-6H PRN 01/11/21 aerosol inhaler Shortness Of Breath Or Wheezing tamsulosin 0.4 mg capsule 0.4 mg PO DAILY 01/11/21 Allergies Allergy/AdvReac Type Severity Reaction Status Date / Time hornet venom Allergy Unknown Unknown Verified 11/08/21 06:53 strawberry Allergy Unknown Unknown Verified 11/08/21 06:53 ciprofloxacin Allergy Unknown Verified 11/08/21 06:53 fentanyl Allergy Unknown Verified 11/08/21 06:53 metronidazole AdvReac Unknown Nausea And Verified 11/08/21 06:53 Vomiting Review of Systems Review of Systems: ROS unobtainable: Yes unobtainable due to medical condition PMFSH Past Medical History Medical History Alcohol abuse Most recent use 10/29/2020 Chronic pain syndrome Cirrhosis COPD (chronic obstructive pulmonary disease) GERD (gastroesophageal reflux disease) Hepatic encephalopathy Hepatocellular carcinoma radiation treatment Hepatocellular carcinoma History of hepatitis B Hx of peptic ulcer as a child Seizure Seizure Surgical History Surgical History History of cholecystectomy History of tibial fracture requiring surgical repair. Family History Family History Father Hypertension Cerebrovascular accident Myocardial infarct Sibling Hypertension Sibling Hypertension Father Hypertension Cerebrovascular accident Family history of coronary artery disease Sibling Hypertension Social History Social History Social History: Smokes 1/2 ppd since 17yo. He is trying to quit. Lives at home with his and children. He is a full code. The patient had 7 children. He is on disability. The patient continues to use marijuana gummies. He no longer uses cocaine or other illicit drugs. Smoking packs per day: 0.5 Smoking cigarettes per day: 10.0 Years smoked: 37 Smoking pack-years: 18.50 Smoking status: Current every day smoker Tobacco type: cigarettes Second hand tobacco smoke exposure: No Smoking end date: 03/01/13 Alcohol use details: Alcohol use noted 10/29/2020 with etoh level of 24. Substance use: former Substance use type: prescription drug Other substance usage details: has not had alcohol in 16 years
[2021-11-08 07:34] VITALS: BP 106/43; PULSE 86; RESP 21; O2SAT 94
[2021-11-08 07:49] LABS: Appearance Urine Clear (Clear); Bilirubin Urine Negative (Negative); Blood Urine Trace-lysed (Negative); Color Urine Yellow (Yellow); Glucose Urine UA Trace mg/dL (Negative); Ketones Urine 1+ mg/dL (Negative); Leukocyte Esterase Ur Negative LEU/UL (Negative); Nitrate Urine Negative (Negative); Protein Urine 1+ mg/dL (Negative)
[2021-11-08 07:50] LABS: Add Urine Microscopic? YES
[2021-11-08 07:53] LABS: Mucus Urine Rare /lpf; Squamous Epithelial Cell Urine Rare /hpf (Few); WBC Urine 0-3 /hpf
[2021-11-08 08:38] VITALS: BP 107/66; PULSE 73; RESP 18; O2SAT 98
[2021-11-08 08:58] LABS: Reflex Lactic Acid Yes or No Add Lactic
[2021-11-08 09:41] VITALS: BP 115/70; PULSE 83; RESP 14; O2SAT 98
[2021-11-08] MEDS: ONDANSETRON INJ 4 MG/2 ML VIAL IV PUSH (09:41)
[2021-11-08 09:47] LABS: Lactic Acid 1.2 mmol/L (0.7-2.0)
== END 2021-11-08 10:46 | disposition home or self-care (01) ==
PROVIDERS: Emergency Provider Emergency Medicine; PCP Physician Assistant
DX: G40.909 Epilepsy, unspecified, not intractable, without status epilepticus (principal); R11.10 Vomiting, unspecified; J44.9 Chronic obstructive pulmonary disease, unspecified; K74.60 Unspecified cirrhosis of liver; K21.9 Gastro-esophageal reflux disease without esophagitis; G89.4 Chronic pain syndrome; Z85.05 Personal history of malignant neoplasm of liver; Z92.3 Personal history of irradiation; Z86.19 Personal history of other infectious and parasitic diseases; Z79.891 Long term (current) use of opiate analgesic; Z79.51 Long term (current) use of inhaled steroids; F17.210 Nicotine dependence, cigarettes, uncomplicated; F12.90 Cannabis use, unspecified, uncomplicated
CPT/HCPCS: 36415; 70450; 74177; 80053; 81001; 83605; 83690; 85025; 85055; 96361; 96365; 96375; 99284; C9113; J1953; J2405; J2550; J7030; Q9967

== ENCOUNTER 2021-11-10 11:57 | Emergency (ER) | payer MEDICARE, MEDICAID, SELFPAY ==
--- NOTE | 2021-11-10 12:00 | ED.NAVMDI ---
HPI - Nausea/Vomiting/Diarrhea General Chief complaint: Upper Respiratory Infection Stated complaint: VOMITING/DIARRHEA Time Seen by Provider: 11/10/21 12:00 Source: patient Mode of arrival: ambulatory Limitations: no limitations History of Present Illness HPI Narrative: Mr. Baez is a 56-year-old male patient presenting to the clinic today with complaints of nausea, diarrhea, nasal congestion, productive cough with green phlegm. He reports no known fevers. Symptoms started . Had seizure on Wednesday and went to the ED but they did not address his URI symptoms. Related Data Home Medications Medication Instructions Recorded Confirmed omeprazole 40 mg capsule,delayed 40 mg PO DAILY 01/17/20 11/10/21 release calcium carbonate 600 mg-vitamin 1 cap PO BID 02/16/20 11/10/21 D3 5 mcg (200 unit) capsule (Calcium 600 + D(3)) gabapentin 800 mg tablet 800 mg PO QID 02/16/20 11/10/21 multivit with minerals-iron 18 1 tablet PO DAILY 02/16/20 11/10/21 mg-folic ac 400 mcg-vit K 25 mcg tablet (Adults Multivitamin) tenofovir disoproxil fumarate 300 300 mg PO DAILY 02/16/20 11/10/21 mg tablet budesonide-formoterol HFA 160 2 puff inhalation BID 08/26/20 11/10/21 mcg-4.5 mcg/actuation aerosol inhaler (Symbicort) ondansetron 8 mg disintegrating 8 mg translingual Q8H PRN Nausea 09/22/20 11/10/21 tablet albuterol sulfate 2.5 mg/3 mL See Rx Instructions .Route .COMPLEX 09/23/20 11/10/21 (0.083 %) solution for nebulization oxycodone 20 mg tablet 20 mg PO Q4-6H 10/25/20 11/10/21 albuterol sulfate 90 mcg/actuation 2 puff inhalation Q4-6H PRN 01/11/21 11/10/21 aerosol inhaler Shortness Of Breath Or Wheezing tamsulosin 0.4 mg capsule 0.4 mg PO DAILY 01/11/21 11/10/21 Allergies Allergy/AdvReac Type Severity Reaction Status Date / Time hornet venom Allergy Unknown Unknown Verified 11/10/21 12:24 strawberry Allergy Unknown Unknown Verified 11/10/21 12:24 ciprofloxacin Allergy Unknown Verified 11/10/21 12:24 fentanyl Allergy Unknown Verified 11/10/21 12:24 metronidazole AdvReac Unknown Nausea And Verified 11/10/21 12:24 Vomiting Review of Systems Review of Systems: Pertinent positives per HPI. Patient denies any fever, chills, rash, headache, visual changes, dizziness, sore throat, shortness of breath, chest pain, palpitations, constipation, or any urinary issues. [facility] Past Medical History Medical History Alcohol abuse Most recent use 10/29/2020 Chronic pain syndrome Cirrhosis COPD (chronic obstructive pulmonary disease) GERD (gastroesophageal reflux disease) Hepatic encephalopathy Hepatocellular carcinoma radiation treatment Hepatocellular carcinoma History of hepatitis B Hx of peptic ulcer as a child Seizure Seizure Surgical History Surgical History History of cholecystectomy History of tibial fracture requiring surgical repair. Family History Family History Father Hypertension Cerebrovascular accident Myocardial infarct Sibling Hypertension Sibling Hypertension Father Hypertension Cerebrovascular accident Family history of coronary artery disease Sibling Hypertension Social History Social History Social History: Smokes 1/2 ppd since 17yo. He is trying to quit. Lives at home with his and children. He is a full code. The patient had 7 children. He is on disability. The patient continues to use marijuana gummies. He no longer uses cocaine or other illicit drugs. Smoking packs per day: 0.5 Smoking cigarettes per day: 10.0 Years smoked: 37 Smoking pack-years: 18.50 Smoking status: Current every day smoker Tobacco type: cigarettes Second hand tobacco smoke exposure: No Smoking end date: 03/01/13 Jenifer
[2021-11-10 12:07] VITALS: BP 139/86; PULSE 87; RESP 16; TEMP 37.3; O2SAT 98
== END 2021-11-10 13:33 | disposition home or self-care (01) ==
PROVIDERS: Emergency Provider Nurse Practitioner Family; PCP Physician Assistant
DX: J40 Bronchitis, not specified as acute or chronic (principal); Z20.822 Contact with and (suspected) exposure to COVID-19; Z87.891 Personal history of nicotine dependence; J44.9 Chronic obstructive pulmonary disease, unspecified; K21.9 Gastro-esophageal reflux disease without esophagitis; G40.909 Epilepsy, unspecified, not intractable, without status epilepticus; K74.60 Unspecified cirrhosis of liver; Z85.05 Personal history of malignant neoplasm of liver; Z92.3 Personal history of irradiation
CPT/HCPCS: 87426; 99213; C9803; G0463

== ENCOUNTER 2021-11-21 09:12 | Emergency (ER) | payer MEDICARE, MEDICAID, SELFPAY ==
--- NOTE | ~2021-11-21 | XR_ITS ---
EXAMINATION: XR chest 2V DATE: 11/21/2021 10:11 INDICATION: Cough. TECHNIQUE: Frontal and lateral views of the chest were obtained on 3 radiographs. COMPARISON: Chest 2 views 08/21/2021, CT abdomen and pelvis 11/08/2021 FINDINGS: The lungs are hyperexpanded with lucencies, consistent with emphysema. No pleural effusion or pneumothorax. The heart size is normal. There is a chronic mild compression fracture of mid thorac ic spine. IMPRESSION: 1. Emphysema. Reviewed, dictated and finalized at [facility]. IMPRESSION: 1. Emphysema.
--- NOTE | 2021-11-21 09:14 | ED.URI ---
HPI - URI/Sore Throat General Chief Complaint: Nausea/Vomiting/Diarrhea Stated Complaint: BODY ACHES/STOMACH PAIN/CONGESTION Time Seen by Provider: 11/21/21 09:50 Source: patient and RN notes reviewed Mode of arrival: ambulatory Limitations: no limitations History of Present Illness HPI Narrative: 56-year-old male with history of chronic liver disease, COPD, emphysema and multiple other chronic health problems presents for reevaluation of an ongoing illness. Reports he has had cough, shortness of breath, thick green mucus, body aches, generally feeling ill. He reports he is on a transplant list for his liver, and needs to feel better before he sees his transplant doctor. He reports he was treated in the emergency room after having a seizure due to his illness he was later treated in this [facility] for bronchitis and was given Augmentin and a steroid. He reports Augmentin does not work for me . MD elicited complaint: cough and other (Shortness of breath, general malaise) Related Data Home Medications Medication Instructions Recorded Confirmed omeprazole 40 mg capsule,delayed 40 mg PO DAILY 01/17/20 11/10/21 release calcium carbonate 600 mg-vitamin 1 cap PO BID 02/16/20 11/10/21 D3 5 mcg (200 unit) capsule (Calcium 600 + D(3)) gabapentin 800 mg tablet 800 mg PO QID 02/16/20 11/10/21 multivit with minerals-iron 18 1 tablet PO DAILY 02/16/20 11/10/21 mg-folic ac 400 mcg-vit K 25 mcg tablet (Adults Multivitamin) tenofovir disoproxil fumarate 300 300 mg PO DAILY 02/16/20 11/10/21 mg tablet budesonide-formoterol HFA 160 2 puff inhalation BID 08/26/20 11/10/21 mcg-4.5 mcg/actuation aerosol inhaler (Symbicort) ondansetron 8 mg disintegrating 8 mg translingual Q8H PRN Nausea 09/22/20 11/10/21 tablet albuterol sulfate 2.5 mg/3 mL See Rx Instructions .Route .COMPLEX 09/23/20 11/10/21 (0.083 %) solution for nebulization oxycodone 20 mg tablet 20 mg PO Q4-6H 10/25/20 11/10/21 albuterol sulfate 90 mcg/actuation 2 puff inhalation Q4-6H PRN 01/11/21 11/10/21 aerosol inhaler Shortness Of Breath Or Wheezing tamsulosin 0.4 mg capsule 0.4 mg PO DAILY 01/11/21 11/10/21 Allergies Allergy/AdvReac Type Severity Reaction Status Date / Time hornet venom Allergy Unknown Unknown Verified 11/21/21 09:39 strawberry Allergy Unknown Unknown Verified 11/21/21 09:39 ciprofloxacin Allergy Unknown Verified 11/21/21 09:39 fentanyl Allergy Unknown Verified 11/21/21 09:39 metronidazole AdvReac Unknown Nausea And Verified 11/21/21 09:39 Vomiting Review of Systems Review of Systems: CONSTITUTIONAL: Reports malaise, fatigue. Denies fever. EYES: Denies visual changes, redness, or discharge. ENT: Reports rhinorrhea, congestion. Denies sinus pain, otalgia and sore throat. CARDIOVASCULAR: Denies chest pain, palpitations, or edema. RESPIRATORY: Reports cough, chest congestion, dyspnea. MUSCULOSKELETAL: Reports myalgia. All systems reviewed & are unremarkable except as noted in HPI and below PMFSH Past Medical History Medical History Alcohol abuse Most recent use 10/29/2020 Chronic pain syndrome Cirrhosis COPD (chronic obstructive pulmonary disease) GERD (gastroesophageal reflux disease) Hepatic encephalopathy Hepatocellular carcinoma radiation treatment Hepatocellular carcinoma History of hepatitis B Hx of peptic ulcer as a child Seizure Seizure Surgical History Surgical History History of cholecystectomy History of tibial fracture requiring surgical repair. Family History Family History Father Hypertension Cerebrovascular accident Myocardial infarct Sibling Hypertension Sibling Hypertension Father Hypertension Cerebrovascular accident Family history of coronary artery disease Sibling Hypertension Social H
[2021-11-21 09:26] VITALS: BP 133/76; PULSE 66; RESP 16; TEMP 36.8; O2SAT 99
--- NOTE | 2021-11-21 10:03 | PC.NURSE ---
When SHOW HOST OR HOSTESS was in room evaluating pt's , who is also being seen, Pt kept trying to interrupt and talk about himself. SHOW HOST OR HOSTESS informed pt she could only evaluate on person at a time and she would assess him next. Pt very belligerent, demanding a z-myriam. SHOW HOST OR HOSTESS states that when she did not immediately agree to give pt a z-myriam he stormed out of the room before she could complete her assessment.
== END 2021-11-21 10:55 | disposition home or self-care (01) ==
PROVIDERS: Emergency Provider Nurse Practitioner; PCP Physician Assistant
DX: J44.1 Chronic obstructive pulmonary disease with (acute) exacerbation (principal); K74.60 Unspecified cirrhosis of liver; K21.9 Gastro-esophageal reflux disease without esophagitis; G40.909 Epilepsy, unspecified, not intractable, without status epilepticus; F17.210 Nicotine dependence, cigarettes, uncomplicated; F12.90 Cannabis use, unspecified, uncomplicated; Z85.05 Personal history of malignant neoplasm of liver
CPT/HCPCS: 71046; 99213; G0463

== ENCOUNTER 2021-11-29 11:08 | Emergency (ER) | payer MEDICARE, MEDICAID, SELFPAY ==
[2021-11-29] VITALS (20 sets, daily range): BP systolic 116–143; BP diastolic 62–79; PULSE 58–89; RESP 18–35; TEMP 36.7; O2SAT 88–99
--- NOTE | ~2021-11-29 | XR_ITS ---
EXAMINATION: XR hand RT min 3V DATE: 11/29/2021 12:26 INDICATION: Right hand injury and pain and swelling. TECHNIQUE: 3 views of right hand were obtained. COMPARISON: Right hand radiographs 01/17/2007 FINDINGS: There is an old healed fracture of diaphysis of fifth metacarpal. No acute fracture. There is moderate osteoarthritis of lunate-capitate joint. There is mild osteoarthritis of triscaphe joint and moderate osteoarthritis of first carpometacarpal joint. Again seen is a 1 mm radiopaque foreign b rukhsana in the radial and palmar aspect of distal second digit. IMPRESSION: 1. Polyarticular osteoarthritis. Reviewed, dictated and finalized at [facility].
--- NOTE | ~2021-11-29 | CT_ITS ---
EXAMINATION: CT brain wo con DATE: 11/29/2021 12:50 INDICATION: Seizure. TECHNIQUE: Computed tomography (CT) of the head was performed without intravenous contrast. The mA wa s adjusted according to patient size. Iterative reconstruction technique was employed. The dose-lengt h product was 605.33 mGy-cm. COMPARISON: Head CT 11/08/2021 FINDINGS: There is no intracranial hemorrhage, acute infarction, or abnormal intracranial mass lesion . There are scattered areas of low attenuation in the cerebral white matter, which is within normal l imits for the patient's age. The ventricles are normal in size. The orbits are normal. There is mild mucosal thickening in the paranasal sinuses. The mastoid air cells are normal. IMPRESSION: 1. Normal aging brain. Reviewed, dictated and finalized at [facility]. IMPRESSION: 1. Normal aging brain.
--- NOTE | ~2021-11-29 | XR_ITS ---
EXAMINATION: XR chest 1V portable DATE: 11/29/2021 12:26 INDICATION: Seizure. TECHNIQUE: A single frontal view of the chest was obtained. COMPARISON: Chest 2 views 08/21/2021, chest CT 04/23/2019 FINDINGS: There are lucencies in the lungs, consistent with emphysema. No pleural effusion or pneumot horax. The heart size is normal. IMPRESSION: 1. Emphysema. Reviewed, dictated and finalized at [facility]. IMPRESSION: 1. Emphysema.
[2021-11-29] MEDS: LORazepam INJ (*CRX) 2 MG/ML VIAL IV PUSH (12:07)
--- NOTE | 2021-11-29 12:07 | ED.GENADULT ---
HPI - General Adult General Chief complaint: Seizure Stated complaint: seizure? Time Seen by Provider: 11/29/21 11:53 History of Present Illness HPI narrative: This is a 56-year-old male presenting to ED with a chief complaint of seizures. Eleven 30 today the patient became stiff with gaze deviation. This is how his seizures typically present. Per the family they last approximately 6 minutes. He was then confused afterwards. EMS was called he was brought to emergency room. At this time the patient is stiff, nonresponsive and has gaze deviation. This is consistent with his seizures. Related Data Home Medications Medication Instructions Recorded Confirmed omeprazole 40 mg capsule,delayed 40 mg PO DAILY 01/17/20 11/10/21 release calcium carbonate 600 mg-vitamin 1 cap PO BID 02/16/20 11/10/21 D3 5 mcg (200 unit) capsule (Calcium 600 + D(3)) gabapentin 800 mg tablet 800 mg PO QID 02/16/20 11/10/21 multivit with minerals-iron 18 1 tablet PO DAILY 02/16/20 11/10/21 mg-folic ac 400 mcg-vit K 25 mcg tablet (Adults Multivitamin) tenofovir disoproxil fumarate 300 300 mg PO DAILY 02/16/20 11/10/21 mg tablet budesonide-formoterol HFA 160 2 puff inhalation BID 08/26/20 11/10/21 mcg-4.5 mcg/actuation aerosol inhaler (Symbicort) ondansetron 8 mg disintegrating 8 mg translingual Q8H PRN Nausea 09/22/20 11/10/21 tablet albuterol sulfate 2.5 mg/3 mL See Rx Instructions .Route .COMPLEX 09/23/20 11/10/21 (0.083 %) solution for nebulization oxycodone 20 mg tablet 20 mg PO Q4-6H 10/25/20 11/10/21 albuterol sulfate 90 mcg/actuation 2 puff inhalation Q4-6H PRN 01/11/21 11/10/21 aerosol inhaler Shortness Of Breath Or Wheezing tamsulosin 0.4 mg capsule 0.4 mg PO DAILY 01/11/21 11/10/21 Allergies Allergy/AdvReac Type Severity Reaction Status Date / Time hornet venom Allergy Unknown Unknown Verified 11/21/21 09:39 strawberry Allergy Unknown Unknown Verified 11/21/21 09:39 ciprofloxacin Allergy Unknown Verified 11/21/21 09:39 fentanyl Allergy Unknown Verified 11/21/21 09:39 metronidazole AdvReac Unknown Nausea And Verified 11/21/21 09:39 Vomiting Review of Systems Review of Systems: ROS unobtainable: Yes unobtainable due to medical condition PMFSH Past Medical History Medical History Alcohol abuse Most recent use 10/29/2020 Chronic pain syndrome Cirrhosis COPD (chronic obstructive pulmonary disease) GERD (gastroesophageal reflux disease) Hepatic encephalopathy Hepatocellular carcinoma radiation treatment Hepatocellular carcinoma History of hepatitis B Hx of peptic ulcer as a child Seizure Seizure Surgical History Surgical History History of cholecystectomy History of tibial fracture requiring surgical repair. Family History Family History Father Hypertension Cerebrovascular accident Myocardial infarct Sibling Hypertension Sibling Hypertension Father Hypertension Cerebrovascular accident Family history of coronary artery disease Sibling Hypertension Social History Social History Social History: Smokes 1/2 ppd since 17yo. He is trying to quit. Lives at home with his and children. He is a full code. The patient had 7 children. He is on disability. The patient continues to use marijuana gummies. He no longer uses cocaine or other illicit drugs. Smoking packs per day: 0.5 Smoking cigarettes per day: 10.0 Years smoked: 37 Smoking pack-years: 18.50 Smoking status: Current every day smoker Tobacco type: cigarettes Second hand tobacco smoke exposure: No Smoking end date: 03/01/13 Alcohol use details: Alcohol use noted 10/29/2020 with etoh level of 24. Substance use: former Substance use type: prescription d
[2021-11-29] MEDS: SODIUM CHLORIDE 0.9% IV 1,000 ML 999 ML IV CONT (12:09)
[2021-11-29 12:22] LABS: Basophils Percent Auto 0.2 % (0.2-1.2); Eosinophils Percent Auto 0.8 % (0-4.4); Hematocrit 36.9 % (42.0-52.0); Hemoglobin 12.8 g/dL (14.0-18.0); Immature Granulocyte Absolute 0.01 K/mm3 (0.00-0.031); Immature Granulocyte Percent A 0.2 % (0-0.5); Immature Platelet Fraction Pct 7.1 % (0.9-11.2); Lymphocytes Absolute Auto 0.44 K/mm3 (0.9-3.2); Lymphocytes Percent Auto 8.7 % (18.3-44.2); Mean Corpuscular HGB Conc 34.7 g/dl (32-36); Mean Corpuscular Hemoglobin 31.8 pg (26-34); Mean Corpuscular Volume 91.8 fl (80-100); Mean Platelet Volume 11.3 fl (7.4-10.4); Monocytes Absolute Auto 0.4 K/mm3 (0.1-0.6); Monocytes Percent Auto 7.9 % (2.6-8.5); Neutrophils Absolute Auto 4.2 K/mm3 (1.3-6.7); Neutrophils Percent Auto 82.2 % (45.5-73.1); Platelet Count Result 94 k/mm3 (150-375); Red Blood Count 4.02 M/mm3 (4.6-6.20); Red Cell Distribution Width 14.8 % (11.5-14.5); White Blood Count 5.1 K/mm3 (4.5-10.0)
[2021-11-29 12:30] LABS: Alanine Aminotransferase 69 U/L (6-50); Albumin Level 4.3 g/dL (3.5-5.1); Alkaline Phosphatase 102 U/L (38-126); Anion Gap 10 mmol/L (8-16); Aspartate Amino Transferase 30 U/L (17-59); Bilirubin,Total 1.6 mg/dL (0.2-1.3); Blood Urea Nitrogen 8 mg/dL (9-20); Calcium 9.6 mg/dL (8.4-10.2); Carbon Dioxide 22 mmol/L (22-30); Chloride 107 mmol/L (98-107); Estimated CRCL calculation 70 ml/min; Estimated Glomerular Filt Rate > 60; Glucose 111 mg/dL (65-110); Magnesium 1.9 mg/dL (1.6-2.3); Potassium 3.3 mmol/L (3.4-5.0); Sodium 139 mmol/L (137-145)
[2021-11-29 13:31] LABS: Appearance Urine Slightly Cloudy (Clear); Bilirubin Urine Negative (Negative); Blood Urine Negative (Negative); Color Urine Yellow (Yellow); Glucose Urine UA Negative (Negative); Ketones Urine 1+ mg/dL (Negative); Leukocyte Esterase Ur Negative LEU/UL (Negative); Nitrate Urine Negative (Negative); Protein Urine Trace mg/dL (Negative); Specific Grav Ur 1.015 (1.001-1.035); pH Urine 7.5 (5.0-9.0)
[2021-11-29 13:39] LABS: Add Urine Microscopic? YES
[2021-11-29 13:50] LABS: Ethanol < 10 mg/dL (<10)
[2021-11-29 13:54] LABS: RBC Urine 0-2 /hpf (0-2); WBC Urine 0-3 /hpf
[2021-11-29] MEDS: POTASSIUM CHLORIDE 20 MEQ TABLET 40 MEQ PO (14:02)
== END 2021-11-29 14:35 | disposition home or self-care (01) ==
PROVIDERS: Emergency Provider Emergency Medicine; PCP Physician Assistant
DX: G40.909 Epilepsy, unspecified, not intractable, without status epilepticus (principal); K74.60 Unspecified cirrhosis of liver; E87.6 Hypokalemia; J44.9 Chronic obstructive pulmonary disease, unspecified; K21.9 Gastro-esophageal reflux disease without esophagitis; K76.82 Hepatic encephalopathy; G89.4 Chronic pain syndrome; Z85.05 Personal history of malignant neoplasm of liver; Z86.19 Personal history of other infectious and parasitic diseases; Z87.11 Personal history of peptic ulcer disease; M18.9 Osteoarthritis of first carpometacarpal joint, unspecified; M19.031 Primary osteoarthritis, right wrist
CPT/HCPCS: 36415; 70450; 71045; 73130; 80053; 80307; 81001; 83735; 85025; 85055; 96361; 96374; 96375; 99284; A9270; J1953; J2060; J7030; J7060

== ENCOUNTER 2022-02-19 13:34 | Observation (INO) | payer MEDICARE, MEDICAID, SELFPAY ==
[2022-02-19] VITALS (20 sets, daily range): BP systolic 122–146; BP diastolic 59–86; PULSE 81–97; RESP 15–35; TEMP 36.7–37.7; O2SAT 94–100
--- NOTE | ~2022-02-19 | CT_ITS ---
EXAMINATION: CT brain wo con DATE: 02/19/2022 15:16 INDICATION: Altered mental state TECHNIQUE: Computed tomography (CT) of the head was performed without intravenous contrast. The mA wa s adjusted according to patient size. Iterative reconstruction technique was employed. Exam dose: 12 10.67 mGy-cm total exam DLP. COMPARISON: 11/29/2021 CT brain FINDINGS: Bilateral carotid siphon internal carotid artery calcifications. There is nonspecific dimin ished attenuation of the cerebral white matter, likely due to chronic small vessel ischemic changes. No intracranial mass lesion or hemorrhage or cerebrovascular accident, midline shift or mass effect i s detected. Normal ventricular size. No subdural or epidural hematoma. The mastoid air cells and included paranasal sinuses are normally developed and aerated. No fracture or bone destruction of the cranial vault. IMPRESSION: Cerebral atherosclerosis and chronic small vessel ischemic changes of the cerebral white matter No acute intracranial abnormality Reviewed, dictated and finalized at [facility]. Reviewed, dictated and finalized at [facility]. [employer]
--- NOTE | ~2022-02-19 | CT_ITS ---
EXAMINATION: CT abdomen pelvis w con DATE: 02/19/2022 15:26 INDICATION: Left-sided abdominal pain. Nausea and vomiting. TECHNIQUE: Computed tomography (CT) of the abdomen and pelvis was performed with 100 CC Omnipaque 350 intravenous contrast. Automated exposure control and iterative reconstruction technique were employe d. Exam dose: 368.07 mGy-cm total exam DLP. COMPARISON: 11/08/2021 CT abdomen pelvis FINDINGS: The lung bases are clear of infiltrate or consolidation. Lung detail is limited due to resp iratory motion. Imaging of the abdomen is somewhat limited by artifact from the upper extremities overlying the abdom en. Normal heart size. No pericardial or pleural effusion. Prominent surface nodularity of liver, varices, splenomegaly, consistent with cirrhosis and portal hy pertension. Again noted is a nonspecific approximately 2 cm ill-defined area of diminished attenuation of the lef t hepatic lobe and dilatation of the bile ducts of the lateral segment of the left hepatic lobe beyon d this area, of concern for possible hepatocellular carcinoma or cholangiocarcinoma.. Status post cholecystectomy. No pancreatic duct dilatation. No pancreatic mass lesion or calcificatio n is evident. Normal morphology of the adrenal glands. No renal mass lesion or urinary tract calculus or hydrourete ronephrosis. There is atherosclerotic calcification of the abdominal aorta but normal caliber. There is atheroscle rotic calcification of the iliac and femoral arteries. No intraperitoneal or retroperitoneal or pelvic mass lesion or adenopathy or ascites. Prominent prostate enlargement and calcification and moderate diffuse thickening of the bladder wall. Approximately 2 x 4 mm calcification is noted. Right posterolateral aspect of the urinary bladder whi ch may be due to 2 a dependent intraluminal urinary bladder calculus versus bladder wall focal calcif ication. Prone CT imaging of the urinary bladder would likely differentiate these 2 possibilities. No bowel obstruction or intraperitoneal free air is detected. Moderately severe degenerative disc disease at L4-5. No suspicious osteolytic or osteoblastic lesions are noted. IMPRESSION: Cirrhosis and portal hypertension Possible 2 cm left hepatic mass with postobstructive dilatation of the bile ducts of the left hepatic lateral segment; consider MR liver examination for further evaluation Possible bladder calculus versus focal right posterolateral bladder wall calcification Reviewed, dictated and finalized at [facility]. Reviewed, dictated and finalized at [facility]. N I [employer] IMPRESSION: Cirrhosis and portal hypertension Possible 2 cm left hepatic mass with postobstructive dilatation of the bile eda ts of the left hepatic lateral segment; consider MR liver examination for furth er evaluation Possible bladder calculus versus focal right posterolateral bladder wall calcif ication
--- NOTE | 2022-02-19 13:39 | ECG_ITS ---
Measurements Intervals [place] Rate: 75 P: 80 NC: 145 QRS: 42 QRSD: 93 T: 62 QT: 394 QTc: 440 Interpretive Statements SINUS RHYTHM POSSIBLE LEFT ATRIAL ENLARGEMENT [-0.1mV P WAVE IN V1/V2] BORDERLINE ECG COMPARED TO ECG 08/21/2021 12:49:25 NO SIGNIFICANT CHANGES Electronically Signed On 02-19-2022 16:53:35 LEGAL STENOGRAPHER by Mor Rneo M.D.
--- NOTE | 2022-02-19 13:58 | ED.GENADULT ---
HPI - General Adult General Chief complaint: Seizure <Rosalinda Lima PA-C - Last Filed: 02/19/22 19:46> Stated complaint: SEIZURES AND VOMITING <Rosalinda Lima PA-C - Last Filed: 02/19/22 19:46> Time Seen by Provider: 02/19/22 13:42 <Rosalinda Lima PA-C - Last Filed: 02/19/22 19:46> Source: patient, EMS and old records reviewed <Rosalinda Lima PA-C - Last Filed: 02/19/22 19:46> Mode of arrival: EMS <Rosalinda Lima PA-C - Last Filed: 02/19/22 19:46> Limitations: altered mental status <Rosalinda Lima PA-C - Last Filed: 02/19/22 19:46> History of Present Illness HPI narrative: Patient is a 56 y/o male, with a PMHx of hepatocellular carcinoma, liver cirrhosis, HepB/C, hepatic encephalopathy, who presents to the ED via EMS with report of nausea and vomiting. Patient actively vomiting upon my evaluation. He reports having left-sided abdominal pain. Per EMS report, family was also reporting patient having symptoms of aura today which they described as though he sits upright and breathes heavily. There was no definitive report of seizure like activity. Patient does have a history of seizures and is supposed to be on Keppra 750 mg twice daily. He is unable to tell me if he has been taking his medications due to his AMS. Hx of noncompliance per previous records. <Rosalinda Lima PA-C - Last Filed: 02/19/22 19:46> Related Data Home medications: Home Medications Medication Instructions Recorded Confirmed omeprazole 40 mg capsule,delayed 40 mg PO DAILY 01/17/20 02/20/22 release calcium carbonate 600 mg-vitamin 1 cap PO BID 02/16/20 02/20/22 D3 5 mcg (200 unit) capsule (Calcium 600 + D(3)) gabapentin 800 mg tablet 800 mg PO QID 02/16/20 02/20/22 multivit with minerals-iron 18 1 tablet PO DAILY 02/16/20 02/20/22 mg-folic ac 400 mcg-vit K 25 mcg tablet (Adults Multivitamin) tenofovir disoproxil fumarate 300 300 mg PO DAILY 02/16/20 02/20/22 mg tablet budesonide-formoterol HFA 160 2 puff inhalation BID 08/26/20 02/20/22 mcg-4.5 mcg/actuation aerosol inhaler (Symbicort) ondansetron 8 mg disintegrating 8 mg translingual Q8H PRN Nausea 09/22/20 02/20/22 tablet albuterol sulfate 2.5 mg/3 mL See Rx Instructions .Route .COMPLEX 09/23/20 02/20/22 (0.083 %) solution for nebulization albuterol sulfate 90 mcg/actuation 2 puff inhalation Q4-6H PRN 01/11/21 02/20/22 aerosol inhaler Shortness Of Breath Or Wheezing tamsulosin 0.4 mg capsule 0.4 mg PO DAILY 01/11/21 02/20/22 <Rosalinda Lima PA-C - Last Filed: 02/19/22 19:46> Allergies/adverse reactions: Allergies Allergy/AdvReac Type Severity Reaction Status Date / Time hornet venom Allergy Unknown Unknown Verified 02/19/22 23:30 strawberry Allergy Unknown Unknown Verified 02/19/22 23:30 ciprofloxacin Allergy Unknown Verified 02/19/22 23:30 fentanyl Allergy Unknown Verified 02/19/22 23:30 metronidazole AdvReac Unknown Nausea And Verified 02/19/22 23:30 Vomiting <Rosalinda Lima PA-C - Last Filed: 02/19/22 19:46> Review of Systems Review of Systems: CONSTITUTIONAL: Denies fever. GASTROINTESTINAL: Reports N/V, L sided ABD pain. MUSCULOSKELETAL: Denies back pain, joint pain, or myalgia. NEUROLOGIC: Reports aura. Denies headache, numbness, or weakness. <TENISHA Ramos Last Filed: 02/19/22 19:46> ROS unobtainable: Yes unobtainable due to mental status <TENISHA Ramos Last Filed: 02/19/22 19:46> [facility] Past Medical History Medical History: Medical History Alcohol abuse Most recent use 10/29/2020 Chronic pain syndrome Cirrhosis COPD (chronic obstructive pulmonary disease) GERD (gastroesophageal reflux disease) Hepatic encephalopathy Hepatocellular carcinoma radiation treatment Hepatocellular carcinoma History of hepatitis B Hx of peptic ulcer as a child
[2022-02-19] MEDS: ONDANSETRON INJ 4 MG/2 ML VIAL IV PUSH (13:59)
[2022-02-19 14:03] LABS: Basophils Percent Auto 0.5 % (0.2-1.2); Hematocrit 40.6 % (42.0-52.0); Hemoglobin 14.3 g/dL (14.0-18.0); Immature Platelet Fraction Pct 11.2 % (0.9-11.2); Lymphocytes Absolute Auto 0.48 K/mm3 (0.9-3.2); Lymphocytes Percent Auto 11.1 % (18.3-44.2); Mean Corpuscular HGB Conc 35.2 g/dl (32-36); Mean Corpuscular Hemoglobin 31.6 pg (26-34); Mean Corpuscular Volume 89.6 fl (80-100); Mean Platelet Volume 11.8 fl (7.4-10.4); Monocytes Absolute Auto 0.2 K/mm3 (0.1-0.6); Monocytes Percent Auto 5.1 % (2.6-8.5); Neutrophils Absolute Auto 3.6 K/mm3 (1.3-6.7); Neutrophils Percent Auto 83.3 % (45.5-73.1); Platelet Count Result 99 k/mm3 (150-375); Red Blood Count 4.53 M/mm3 (4.6-6.20); Red Cell Distribution Width 14.4 % (11.5-14.5); White Blood Count 4.3 K/mm3 (4.5-10.0)
[2022-02-19 14:09] LABS: Ammonia < 9 umol/L (9-30)
[2022-02-19 14:11] LABS: INR 1.3; Prothrombin Time 15.2 Seconds (11.1-14.7)
[2022-02-19 14:12] LABS: Partial Thromboplastin Time 28.2 SECONDS (22.3-36.8)
[2022-02-19 14:14] LABS: Lactic Acid Reflex 1.8 mmol/L (0.7-2.0)
[2022-02-19 14:16] LABS: Alanine Aminotransferase 23 U/L (6-50); Albumin Level 4.9 g/dL (3.5-5.1); Alkaline Phosphatase 78 U/L (38-126); Anion Gap 10 mmol/L (8-16); Aspartate Amino Transferase 47 U/L (17-59); Bilirubin,Total 1.5 mg/dL (0.2-1.3); Blood Urea Nitrogen 10 mg/dL (9-20); Calcium 9.1 mg/dL (8.4-10.2); Carbon Dioxide 24 mmol/L (22-30); Chloride 104 mmol/L (98-107); Estimated CRCL calculation 71 ml/min; Estimated Glomerular Filt Rate > 60; Glucose 110 mg/dL (65-110); Potassium 4.3 mmol/L (3.4-5.0); Sodium 138 mmol/L (137-145)
[2022-02-19 14:24] LABS: Troponin I < 0.012 ng/mL (0.000-0.034)
[2022-02-19] MEDS: PANTOPRAZOLE SODIUM IV 40 MG VIAL IV PUSH (14:24)
[2022-02-19] MEDS: MORPHINE SULFATE (*CRX) 4 MG/ML INJ IV PUSH (14:24)
[2022-02-19] MEDS: PROMETHAZINE HCL 25 MG/ML AMPUL 12.5 MG IV PUSH (14:24)
[2022-02-19 14:25] LABS: Lipase 57 U/L (23-300)
[2022-02-19] MEDS: SODIUM CHLORIDE 0.9% IV 1,000 ML 999 ML IV CONT (14:25)
[2022-02-19] MEDS: LORazepam INJ (*CRX) 2 MG/ML VIAL 0.5 MG IV PUSH (14:36)
[2022-02-19 14:37] LABS: Ovalocytes 1+ (NORMAL); Platelet Estimate Decreased (Adequate)
[2022-02-19 14:38] LABS: Schistocytes None Seen (NORMAL)
[2022-02-19 14:48] LABS: Add Urine Microscopic? YES; Appearance Urine Clear (Clear); Bilirubin Urine 1+ (Negative); Blood Urine Trace-Intact (Negative); Color Urine Light Yellow (Yellow); Glucose Urine UA Negative (Negative); Ketones Urine 3+ mg/dL (Negative); Leukocyte Esterase Ur Negative LEU/UL (Negative); Nitrate Urine Negative (Negative); Protein Urine 1+ mg/dL (Negative); Specific Grav Ur 1.015 (1.001-1.035)
[2022-02-19 14:51] LABS: Influenza A QL RT-PCR Negative (Negative); Influenza B QL RT-PCR Negative (Negative); SARS-CoV-2 RNA PCR Negative
[2022-02-19 14:52] LABS: Mucus Urine Rare /lpf; RBC Urine 0-2 /hpf (0-2); Squamous Epithelial Cell Urine Rare /hpf (Few); WBC Urine 0-3 /hpf
[2022-02-19] MEDS: levETIRAcetam 1000MG/NACL100ML 1,000 MG/100 ML BAG 400 MG IVPB (15:37)
[2022-02-19 16:01] LABS: Base Excess ABG -3.8 mEq/l (+/-2.0); HCO3 ABG 20.9 mEq/l (22.0-26.0); Oxygen Saturation ABG 94.4 % (95.0-100.0); PCO2 ABG 36.9 mmHg (35.0-45.0); PO2 ABG 72.9 mmHg (80.0-100.0)
[2022-02-19 16:02] LABS: Oxyhemoglobin 92.3 % THb (90.0-100.0); Total Hemoglobin 12.8 g/dL (12.0-18.0)
[2022-02-19 16:03] LABS: Carboxyhemoglobin 0.6 % THb (0-2.0); Fractional Inspired Oxygen 21 %; Methemoglobin ABG 0.2 %THb (0-1.5); Modified Allen's Test Pass; PO2 FiO2 Ratio Arterial Blood 3.47 %; Reduced Hemoglobin 6.9 %THb (0-5.0); Site Drawn RIGHT RADIAL
[2022-02-19 16:05] LABS: Alveolar/Arterial O2 Gradient 32.6 mmHg
[2022-02-19 16:07] LABS: Oxygen Content ABG 16.7 %vol (16.0-22.0)
[2022-02-19 16:19] LABS: Ethanol < 10 mg/dL (<10)
[2022-02-19 16:33] LABS: Amphetamine Screen Urine Negative (Negative); Barbiturate Screen Urine Negative (Negative); Benzodiazepines Screen Urine Negative (Negative); Cannabinoid Screen Urine Positive (Negative); Cocaine Screen Urine Negative (Negative); Methadone Screen Urine Negative (Negative); Opiate Screen Urine Negative (Negative); Phencyclidine Screen Urine Negative (Negative)
[2022-02-19 18:19] LABS: Magnesium 1.8 mg/dL (1.6-2.3)
--- NOTE | 2022-02-19 18:19 | PM.IMHP ---
H&P: HPI History of Present Illness Date/Time: 02/19/22 18:19 Chief Complaint: Seizure Narrative: This is a 56-year-old male patient who was MAC ate it. He has a history of hepatocellular carcinoma, liver cirrhosis, hep B and C and hepatic encephalopathy. The patient presented to the emergency department with complaints of nausea vomiting. He also complained of left-sided abdominal pain. Patient has a history of seizures and felt like he was having a or today. With the patient sits upright bruise heavily. No clonic tonic activity was noted. Patient is on Keppra 750 twice daily. He has a history of being noncompliant. The patient does answer some questions but then immediately falls back to sleep. CT of the abdomen was read as the followingCirrhosis and portal hypertension Possible 2 cm left hepatic mass with postobstructive dilatation of the bile ducts of the left hepatic lateral segment; consider MR liver examination for further evaluation Possible bladder calculus versus focal right posterolateral bladder wall calcification The patient was positive for cannabis and he admits to using cannabis every day. Influenza A/B and COVID are all negative. Head CT was read as cerebral atherosclerosis and chronic small-vessel ischemic changes of cerebral white matter no acute intracranial abnormality. The patient is being admitted for observation status on the date of service of 02/19/2022 Review of Systems Review of Systems: See HPI All systems reviewed & are unremarkable except as noted in HPI and below Constitutional: Constitutional: Reports as per HPI and Reports no additional constitutional complaints Eyes: Eyes: Reports as per HPI and Reports no additional eye complaints ENT: Reports system reviewed and no additional complaints, except as documented and Reports Normal hearing present Cardiovascular: Cardiovascular: Reports no additional cardiovascular complaints Respiratory: Respiratory: Reports no additional respiratory complaints and Reports no additional respiratory complaints Gastrointestinal: Gastrointestinal: Reports as per HPI and Reports no additional gastrointestinal complaints Musculoskeletal: Musculoskeletal: Reports no additional musculoskeletal complaints Integumentary/Breasts: Skin/Breast: Reports system reviewed and no additional complaints, except as docu and Reports as per HPI Neurologic: Reports system reviewed and no additional complaints, except as documented, Reports as per HPI and Reports Normal hearing present Psychiatric: Psychiatric: Reports no additional psychiatric complaints and Reports as per HPI Endocrine: Endocrine: Reports no additional endocrine complaints Hematologic/Lymphatic: Hematologic/Lymphatic: Reports no additional hematologic/lymphatic complaints Allergic/Immunologic: Allergic/Immunologic: Reports no additional allergic/immunologic complaints [facility] Past Medical History Medical History Alcohol abuse Most recent use 10/29/2020 Chronic pain syndrome Cirrhosis COPD (chronic obstructive pulmonary disease) GERD (gastroesophageal reflux disease) Hepatic encephalopathy Hepatocellular carcinoma radiation treatment Hepatocellular carcinoma History of hepatitis B Hx of peptic ulcer as a child Seizure Seizure Surgical History Surgical History History of cholecystectomy History of tibial fracture requiring surgical repair. Family History Family History Father Hypertension Cerebrovascular accident Myocardial infarct Sibling Hypertension Sibling Hypertension Father Hypertension Cerebrovascular accident Family history of coronary artery disease Sibling Hypertension Social History Social History (Updated 02/20/22 @ 00:01 by Griselda Davenport NP) Social History: Smokes 1/2 ppd since 17yo. He is tryin
--- NOTE | 2022-02-19 19:07 | PC.NURSE ---
blood glucose 84 at 1905
[2022-02-19 19:21] LABS: Glucose Point of Care 84 mg/dl (65-105)
--- NOTE | 2022-02-19 19:32 | PC.NURSE ---
1835- provided with update,
--- NOTE | 2022-02-19 19:32 | PC.NURSE ---
, Heather Baez [phone]
--- NOTE | 2022-02-19 23:26 | ADMGEN ---
This patient, Ronan Baez, was admitted to Medical Room 342-01. Patient/family oriented to hospital policies and general routines including ID bracelet, bed and alarms, visiting hours, pain management, procedures, bathroom and other care routines, personal items, smoking policy, room service/diet, and visiting hours. Information on how to activate the Rapid Response Team has been discussed. Patient/Family are encouraged to report perceived risks to care and to ask questions if they do not understand what they are told or what they should do.
[2022-02-20 06:00] VITALS: BP 130/61; PULSE 97; RESP 22; TEMP 36.6; O2SAT 98
[2022-02-20 07:14] LABS: Basophils Percent Auto 0.3 % (0.2-1.2); Eosinophils Percent Auto 0.3 % (0-4.4); Hematocrit 39.5 % (42.0-52.0); Hemoglobin 13.5 g/dL (14.0-18.0); Immature Granulocyte Absolute 0.01 K/mm3 (0.00-0.031); Immature Granulocyte Percent A 0.1 % (0-0.5); Lymphocytes Absolute Auto 0.82 K/mm3 (0.9-3.2); Lymphocytes Percent Auto 12.2 % (18.3-44.2); Mean Corpuscular HGB Conc 34.2 g/dl (32-36); Mean Corpuscular Volume 90.8 fl (80-100); Mean Platelet Volume 11.6 fl (7.4-10.4); Monocytes Absolute Auto 0.6 K/mm3 (0.1-0.6); Monocytes Percent Auto 8.9 % (2.6-8.5); Neutrophils Absolute Auto 5.2 K/mm3 (1.3-6.7); Neutrophils Percent Auto 78.2 % (45.5-73.1); Platelet Count Result 86 k/mm3 (150-375); Red Blood Count 4.35 M/mm3 (4.6-6.20); Red Cell Distribution Width 14.4 % (11.5-14.5); White Blood Count 6.7 K/mm3 (4.5-10.0)
[2022-02-20 07:28] LABS: Alanine Aminotransferase 22 U/L (6-50); Albumin Level 4.6 g/dL (3.5-5.1); Alkaline Phosphatase 82 U/L (38-126); Anion Gap 9 mmol/L (8-16); Aspartate Amino Transferase 39 U/L (17-59); Bilirubin,Total 1.5 mg/dL (0.2-1.3); Blood Urea Nitrogen 13 mg/dL (9-20); Calcium 8.9 mg/dL (8.4-10.2); Carbon Dioxide 23 mmol/L (22-30); Chloride 110 mmol/L (98-107); Estimated CRCL calculation 71 ml/min; Estimated Glomerular Filt Rate > 60; Glucose 80 mg/dL (65-110); Lactate Dehydrogenase 180 U/L (120-246); Potassium 3.6 mmol/L (3.4-5.0); Sodium 142 mmol/L (137-145)
[2022-02-20 08:26] LABS: Atypical Lymphocytes Present; Platelet Estimate Decreased (Adequate); Schistocytes None Seen (NORMAL)
[2022-02-20 08:49] LABS: Thyroid Stimulating Hormone Reflex 0.645 uIU/mL (0.465-4.68)
--- NOTE | 2022-02-20 17:12 | PM.IMPN ---
Subjective Date/time seen: 02/20/22 17:12 Objective Data Vital Signs Vital Signs: Vital Signs - 24 hr 02/19/22 17:17 02/19/22 17:50 02/19/22 18:00 Temperature Pulse Rate 94 90 91 Respiratory Rate 21 H Blood Pressure Pulse Oximetry Oxygen Delivery 02/19/22 18:15 02/19/22 21:06 02/19/22 23:19 Temperature 99.8 F H Pulse Rate 94 91 91 Respiratory Rate 18 18 Blood Pressure 129/72 Pulse Oximetry 97 97 Oxygen Delivery Room Air 02/20/22 06:00 Temperature 97.8 F Pulse Rate 97 Respiratory Rate 22 H Blood Pressure 130/61 Pulse Oximetry 98 Oxygen Delivery Intake/Output Intake/Output: Intake & Output 02/17/22 02/18/22 02/19/22 02/20/22 23:59 23:59 23:59 23:59 Intake Total 1100 Output Total 200 Balance 1100 -200 Meds/Results Radiology Results: ITS Impressions Head CT 02/19/22 15:17 IMPRESSION: Cerebral atherosclerosis and chronic small vessel ischemic changes of the cerebral white matter No acute intracranial abnormality Abdomen/Pelvis CT 02/19/22 15:26 IMPRESSION: Cirrhosis and portal hypertension Possible 2 cm left hepatic mass with postobstructive dilatation of the bile ducts of the left hepatic lateral segment; consider MR liver examination for further evaluation Possible bladder calculus versus focal right posterolateral bladder wall calcification Labs Labs: Laboratory Results - last 24 hr 02/19/22 02/19/22 02/20/22 13:48 19:05 06:46 WBC 6.7 RBC 4.35 L Hgb 13.5 L Hct 39.5 L MCV 90.8 MCH 31.0 MCHC 34.2 RDW 14.4 Plt Count 86 L MPV 11.6 H Immature Gran % (Auto) 0.1 Neut % (Auto) 78.2 H Lymph % (Auto) 12.2 L Armstrong % (Auto) 8.9 H Eos % (Auto) 0.3 Baso % (Auto) 0.3 Lymph # (Auto) 0.82 L Armstrong # (Auto) 0.6 Eos # (Auto) 0.0 Baso # (Auto) 0.0 Abs Immat Gran (auto) 0.01 Absolute Neuts (auto) 5.2 Absolute Nucleated RBC 0.0 Nucleated RBC % 0.0 Atypical Lymphocytes Present Platelet Estimate Decreased % Immature Plt Fraction 8.0 Schistocytes None seen Sodium Potassium Chloride Carbon Dioxide Anion Gap BUN Creatinine Estim Creat Clear Calc Estimated GFR Glucose POC Capillary Glucose 84 Calcium Magnesium 1.8 Total Bilirubin AST ALT Alkaline Phosphatase Lactate Dehydrogenase Total Protein Albumin TSH (Reflex) 02/20/22 02/20/22 06:46 06:46 WBC RBC Hgb Hct MCV MCH MCHC RDW Plt Count MPV Immature Gran % (Auto) Neut % (Auto) Lymph % (Auto) Armstrong % (Auto) Eos % (Auto) Baso % (Auto) Lymph # (Auto) Armstrong # (Auto) Eos # (Auto) Baso # (Auto) Abs Immat Gran (auto) Absolute Neuts (auto) Absolute Nucleated RBC Nucleated RBC % Atypical Lymphocytes Platelet Estimate % Immature Plt Fraction Schistocytes Sodium 142 Potassium 3.6 Chloride 110 H Carbon Dioxide 23 Anion Gap 9 BUN 13 Creatinine 0.80 Estim Creat Clear Calc 71 Estimated GFR > 60 Glucose 80 POC Capillary Glucose Calcium 8.9 Magnesium 2.0 Total Bilirubin 1.5 H AST 39 ALT 22 Alkaline Phosphatase 82 Lactate Dehydrogenase 180 Total Protein 8.0 Albumin 4.6 TSH (Reflex) 0.645
--- NOTE | 2022-02-20 17:12 | PM.DS ---
DS: Admitting Diagnosis Discharge Date 02/20/22 Admitting Diagnosis Seizures DS: Discharge Diagnosis Discharge Diagnosis (1) Seizure: Code(s): R56.9 - Unspecified convulsions Status: Acute (2) Nausea & vomiting: Qualifiers: Vomiting Intractability: non-intractable Vomiting type: unspecified Qualified Code(s): R11.2 - Nausea with vomiting, unspecified Code(s): R11.2 - Nausea with vomiting, unspecified Status: Acute (3) Altered mental status: Qualifiers: Altered mental status type: somnolence Qualified Code(s): R40.0 - Somnolence Code(s): R41.82 - Altered mental status, unspecified Status: Acute (4) Cirrhosis of liver: Qualifiers: Ascites presence: without ascites Hepatic cirrhosis type: unspecified hepatic cirrhosis Qualified Code(s): K74.60 - Unspecified cirrhosis of liver Code(s): K74.60 - Unspecified cirrhosis of liver Status: Acute (5) Liver mass: Code(s): R16.0 - Hepatomegaly, not elsewhere classified Status: Acute (6) COPD (chronic obstructive pulmonary disease): Code(s): J44.9 - Chronic obstructive pulmonary disease, unspecified Status: Acute DS: Summary Hospital Course Reason for hospitalization: Seizure Narrative: This is a 56-year-old male patient who was MAC ate it.? He has a history of hepatocellular carcinoma, liver cirrhosis, hep B and C and hepatic encephalopathy.? The patient presented to the emergency department with complaints of nausea vomiting.? He also complained of left-sided abdominal pain.? Patient has a history of seizures and felt like he was having a or today.? With the patient sits upright bruise heavily.? No clonic tonic activity was noted.? Patient is on Keppra 750 twice daily.? He has a history of being noncompliant.? The patient does answer some questions but then immediately falls back to sleep.? CT of the abdomen was read as the followingCirrhosis and portal hypertension Possible 2 cm left hepatic mass with postobstructive dilatation of the bile ducts of the left hepatic lateral segment; consider MR liver examination for further evaluation Possible bladder calculus versus focal right posterolateral bladder wall calcification The patient was positive for cannabis and he admits to using cannabis every day.? Influenza A/B and COVID are all negative.? Head CT was read as cerebral atherosclerosis and chronic small-vessel ischemic changes of cerebral white matter no acute intracranial abnormality.? The patient is being admitted for observation status on the date of service of 02/19/2022 Hospital Course: AMA Time Spent with Patient Time attestation: Total time spent providing and/or coordinating discharge services: DS: Data Data Completed and Pending Labs on day of discharge: Labs from last 24 hours 02/20/22 02/20/22 02/20/22 06:46 06:46 06:46 WBC 6.7 RBC 4.35 L Hgb 13.5 L Hct 39.5 L MCV 90.8 MCH 31.0 MCHC 34.2 RDW 14.4 Plt Count 86 L MPV 11.6 H Immature Gran % (Auto) 0.1 Neut % (Auto) 78.2 H Lymph % (Auto) 12.2 L [place] % (Auto) 8.9 H Eos % (Auto) 0.3 Baso % (Auto) 0.3 Lymph # (Auto) 0.82 L [place] # (Auto) 0.6 Eos # (Auto) 0.0 Baso # (Auto) 0.0 Abs Immat Gran (auto) 0.01 Absolute Neuts (auto) 5.2 Absolute Nucleated RBC 0.0 Nucleated RBC % 0.0 Atypical Lymphocytes Present Platelet Estimate Decreased % Immature Plt Fraction 8.0 Schistocytes None seen Sodium 142 Potassium 3.6 Chloride 110 H Carbon Dioxide 23 Anion Gap 9 BUN 13 Creatinine 0.80 Estim Creat Clear Calc 71 Estimated GFR > 60 Glucose 80 POC Capillary Glucose Calcium 8.9 Magnesium 2.0 Total Bilirubin 1.5 H AST 39 ALT 22 Alkaline Phosphatase 82 Lactate Dehydrogenase 180 Total Protein 8.0 Albumin 4.6 TSH (Reflex) 0.645 Levetiracetam
== END 2022-02-20 08:38 | disposition left against medical advice (07) ==
LOC: ANHED 19:45 → ANH3MED 02-20 03:05 → ANH3MEDSUR 02-24 10:46
PROVIDERS: Nurse Practitioner; Physician Assistant; Admitting Provider Internal Medicine; Emergency Provider Emergency Medicine; PCP Physician Assistant; Visit Provider Family Medicine
DX: R56.9 Unspecified convulsions (principal); R41.82 Altered mental status, unspecified; K74.60 Unspecified cirrhosis of liver; R16.0 Hepatomegaly, not elsewhere classified; J44.9 Chronic obstructive pulmonary disease, unspecified; K76.6 Portal hypertension; K76.82 Hepatic encephalopathy; Z91.14 Patient's other noncompliance with medication regimen; F10.10 Alcohol abuse, uncomplicated; F12.90 Cannabis use, unspecified, uncomplicated; Y90.0 Blood alcohol level of less than 20 mg/100 ml; G89.4 Chronic pain syndrome; K21.9 Gastro-esophageal reflux disease without esophagitis; D72.818 Other decreased white blood cell count; R90.82 White matter disease, unspecified; E87.29 Other acidosis; D69.6 Thrombocytopenia, unspecified; I70.0 Atherosclerosis of aorta; F17.210 Nicotine dependence, cigarettes, uncomplicated; Z92.3 Personal history of irradiation; Z85.05 Personal history of malignant neoplasm of liver; Z86.19 Personal history of other infectious and parasitic diseases; Z79.51 Long term (current) use of inhaled steroids; Z79.899 Other long term (current) drug therapy
CPT/HCPCS: 36415; 36600; 70450; 74177; 80053; 80177; 80307; 81001; 82140; 82375; 82805; 82948; 83050; 83605; 83615; 83690; 83735; 84443; 84484; 85025; 85055; 85610; 85730; 87636; 93005; 96361; 96365; 96375; 99285; A9270; C9113; G0378; J1953; J2060; J2270; J2405; J2550; J7030; Q9967

== ENCOUNTER 2022-04-06 16:31 | Emergency (ER) | payer MEDICARE, MEDICAID, SELFPAY ==
--- NOTE | 2022-04-06 16:33 | ED.NAVMDI ---
HPI - Nausea/Vomiting/Diarrhea General Chief complaint: Nausea/Vomiting/Diarrhea Stated complaint: nausea Time Seen by Provider: 04/06/22 16:33 Source: patient Mode of arrival: ambulatory Limitations: no limitations History of Present Illness HPI Narrative: Isreal is a 56-year-old male patient presenting to clinic today with complaints of nausea and vomiting times 3 days. He reports he had gotten a dialysis PermCath placed on March 22 for acute renal failure. States that he was given nausea medicine as they do not want him to throw up due to the PermCath placement. He has been without his nausea medicine for about 3 days and has had nausea and vomiting for the past 2 days. He also reports diffuse abdominal pain with abdominal bloating. He denies any fever chills. He has a history of alcohol abuse, hepatic encephalopathy, and cirrhosis of the liver. He is also taking lactulose to that is causing him to have diarrhea. He appears pale and lethargic in the clinic today. Rates his pain a 9/10 currently. Also states he is on antibiotics for a left upper lobe pneumonia. Related Data Home Medications Medication Instructions Recorded Confirmed omeprazole 40 mg capsule,delayed 40 mg PO DAILY 01/17/20 02/20/22 release calcium carbonate 600 mg-vitamin 1 cap PO BID 02/16/20 02/20/22 D3 5 mcg (200 unit) capsule (Calcium 600 + D(3)) gabapentin 800 mg tablet 800 mg PO QID 02/16/20 02/20/22 multivit with minerals-iron 18 1 tablet PO DAILY 02/16/20 02/20/22 mg-folic ac 400 mcg-vit K 25 mcg tablet (Adults Multivitamin) tenofovir disoproxil fumarate 300 300 mg PO DAILY 02/16/20 02/20/22 mg tablet budesonide-formoterol HFA 160 2 puff inhalation BID 08/26/20 02/20/22 mcg-4.5 mcg/actuation aerosol inhaler (Symbicort) ondansetron 8 mg disintegrating 8 mg translingual Q8H PRN Nausea 09/22/20 02/20/22 tablet albuterol sulfate 2.5 mg/3 mL See Rx Instructions .Route .COMPLEX 09/23/20 02/20/22 (0.083 %) solution for nebulization albuterol sulfate 90 mcg/actuation 2 puff inhalation Q4-6H PRN 01/11/21 02/20/22 aerosol inhaler Shortness Of Breath Or Wheezing tamsulosin 0.4 mg capsule 0.4 mg PO DAILY 01/11/21 02/20/22 rifaximin 550 mg tablet (Xifaxan) mg 04/06/22 Allergies Allergy/AdvReac Type Severity Reaction Status Date / Time hornet venom Allergy Unknown Unknown Verified 04/06/22 16:39 strawberry Allergy Unknown Unknown Verified 04/06/22 16:39 ciprofloxacin Allergy Unknown Verified 04/06/22 16:39 fentanyl Allergy Unknown Verified 04/06/22 16:39 metronidazole AdvReac Unknown Nausea And Verified 04/06/22 16:39 Vomiting Review of Systems Review of Systems: Pertinent positives per HPI. Patient denies any fever, chills, rash, headache, visual changes, dizziness, cough, runny nose, sore throat, shortness of breath, chest pain, palpitations, or any urinary issues. PMFSH Past Medical History Medical History Alcohol abuse Most recent use 10/29/2020 Chronic pain syndrome Cirrhosis COPD (chronic obstructive pulmonary disease) GERD (gastroesophageal reflux disease) Hepatic encephalopathy Hepatocellular carcinoma radiation treatment Hepatocellular carcinoma History of hepatitis B Hx of peptic ulcer as a child Seizure Seizure Surgical History Surgical History History of cholecystectomy History of tibial fracture requiring surgical repair. Family History Family History Father Hypertension Cerebrovascular accident Myocardial infarct Sibling Hypertension Sibling Hypertension Father Hypertension Cerebrovascular accident Family history of coronary artery disease Sibling Hypertension Social History Social History Social History: Smokes 1/2 ppd since
[2022-04-06 16:40] VITALS: BP 159/80; PULSE 94; RESP 18; TEMP 37.7; O2SAT 99
[2022-04-06] MEDS: ONDANSETRON HCL ODT 4 MG TABLET 8 MG PO (17:05)
== END 2022-04-06 17:11 | disposition short-term general hospital (02) ==
LOC: EXPGOSH 16:34
PROVIDERS: Emergency Provider Nurse Practitioner Family; PCP Internal Medicine Gastroenterology
DX: R10.9 Unspecified abdominal pain (principal); R11.2 Nausea with vomiting, unspecified; K74.60 Unspecified cirrhosis of liver; J44.9 Chronic obstructive pulmonary disease, unspecified; K21.9 Gastro-esophageal reflux disease without esophagitis; Z85.05 Personal history of malignant neoplasm of liver; Z92.3 Personal history of irradiation
CPT/HCPCS: 99213; A9270; G0463

== ENCOUNTER 2022-06-18 02:57 | Observation (INO) | payer MEDICARE, MEDICAID, SELFPAY ==
[2022-06-18] VITALS (13 sets, daily range): BP systolic 122–143; BP diastolic 68–86; PULSE 74–97; RESP 15–26; TEMP 36.4–37.2; O2SAT 91–100; BMI 18.8
--- NOTE | 2022-06-18 | ECG_ITS ---
Measurements Intervals [place] Rate: 75 P: 76 NE: 136 QRS: 37 QRSD: 88 T: 63 QT: 374 QTc: 418 Interpretive Statements SINUS RHYTHM POSSIBLE LEFT ATRIAL ENLARGEMENT COMPARED TO ECG 02/19/2022 13:36:47 NO SIGNIFICANT CHANGES Electronically Signed On 06-18-2022 18:21:34 CDT by Sherley Delaney M.D.
--- NOTE | ~2022-06-18 | XR_ITS ---
Portable chest x-ray Comparison: 11/29/2021 Clinical History: Seizure Findings: Probable biapical scarring noted. No other consolidation or pleural effusion. Cardiomedia stinal silhouette is stable. Bones and soft tissues are unremarkable. Impression: Probable biapical scarring. Reviewed, dictated and finalized at [facility]. Impression: Probable biapical scarring.
--- NOTE | ~2022-06-18 | XR_ITS ---
XR abdomen/kub 1V 06/18/2022 16:05 INDICATION: Nausea and vomiting TECHNIQUE: KUB COMPARISON: 03/19/2004 FINDINGS: Bowel gas pattern is normal. There is no evidence of free air, mass, organomegaly, ascites or obstruction. No abnormal calculi are seen. The bones appear intact. There are cholecystectomy c lips. Mild lumbar spondylosis. IMPRESSION: 1: No acute abdominal abnormality identified. Reviewed, dictated and finalized at location A.
--- NOTE | 2022-06-18 03:08 | ED.GENADULT ---
HPI - General Adult General Chief complaint: Seizure Stated complaint: SEIZURE Time Seen by Provider: 06/18/22 03:01 History of Present Illness HPI narrative: This is a 48-year-old male is well known to our emergency department for frequent seizures. He is presenting again today for seizure activity. He was at home watching TV around 3:00 a.m. his family noticed that he started shaking. He was then postictal afterwards. He was brought to the emergency department for evaluation. He is currently postictal and not answering questions. Family arrived and said he has not been taking his Keppra over the last several days. Related Data Home Medications Medication Instructions Recorded Confirmed omeprazole 40 mg capsule,delayed 40 mg PO DAILY 01/17/20 02/20/22 release calcium carbonate 600 mg-vitamin 1 cap PO BID 02/16/20 02/20/22 D3 5 mcg (200 unit) capsule (Calcium 600 + D(3)) gabapentin 800 mg tablet 800 mg PO QID 02/16/20 02/20/22 multivit with minerals-iron 18 1 tablet PO DAILY 02/16/20 02/20/22 mg-folic ac 400 mcg-vit K 25 mcg tablet (Adults Multivitamin) tenofovir disoproxil fumarate 300 300 mg PO DAILY 02/16/20 02/20/22 mg tablet budesonide-formoterol HFA 160 2 puff inhalation BID 08/26/20 02/20/22 mcg-4.5 mcg/actuation aerosol inhaler (Symbicort) ondansetron 8 mg disintegrating 8 mg translingual Q8H PRN Nausea 09/22/20 02/20/22 tablet albuterol sulfate 2.5 mg/3 mL See Rx Instructions .Route .COMPLEX 09/23/20 02/20/22 (0.083 %) solution for nebulization albuterol sulfate 90 mcg/actuation 2 puff inhalation Q4-6H PRN 01/11/21 02/20/22 aerosol inhaler Shortness Of Breath Or Wheezing tamsulosin 0.4 mg capsule 0.4 mg PO DAILY 01/11/21 02/20/22 rifaximin 550 mg tablet (Xifaxan) mg 04/06/22 Allergies Allergy/AdvReac Type Severity Reaction Status Date / Time hornet venom Allergy Unknown Unknown Verified 04/06/22 16:39 strawberry Allergy Unknown Unknown Verified 04/06/22 16:39 ciprofloxacin Allergy Unknown Verified 04/06/22 16:39 fentanyl Allergy Unknown Verified 04/06/22 16:39 metronidazole AdvReac Unknown Nausea And Verified 04/06/22 16:39 Vomiting PMFSH Past Medical History Medical History Alcohol abuse Most recent use 10/29/2020 Chronic pain syndrome Cirrhosis COPD (chronic obstructive pulmonary disease) GERD (gastroesophageal reflux disease) Hepatic encephalopathy Hepatocellular carcinoma radiation treatment Hepatocellular carcinoma History of hepatitis B Hx of peptic ulcer as a child Seizure Seizure Surgical History Surgical History History of cholecystectomy History of tibial fracture requiring surgical repair. Family History Family History Father Hypertension Cerebrovascular accident Myocardial infarct Sibling Hypertension Sibling Hypertension Father Hypertension Cerebrovascular accident Family history of coronary artery disease Sibling Hypertension Social History Social History Social History: Smokes 1/2 ppd since 17yo. He is trying to quit. Lives at home with his and children. He is a full code. The patient had 7 children. He is on disability. The patient continues to use marijuana gummies. He no longer uses cocaine or other illicit drugs. 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 Substance use: current Substance use type: mar
[2022-06-18] MEDS: levETIRAcetam IV 3,000 MG in DEXTROSE 5% 100 ML 460 MG IVPB (03:21)
[2022-06-18] MEDS: SODIUM CHLORIDE 0.9% IV 1,000 ML 999 ML IV CONT (03:22)
[2022-06-18 03:24] LABS: Basophils Percent Auto 0.3 % (0.2-1.2); Eosinophils Percent Auto 0.5 % (0-4.4); Hematocrit 39.4 % (42.0-52.0); Hemoglobin 13.3 g/dL (14.0-18.0); Immature Granulocyte Absolute 0.02 K/mm3 (0.00-0.031); Immature Granulocyte Percent A 0.3 % (0-0.5); Immature Platelet Fraction Pct 7.1 % (0.9-11.2); Lymphocytes Percent Auto 9.4 % (18.3-44.2); Mean Corpuscular HGB Conc 33.8 g/dl (32-36); Mean Corpuscular Hemoglobin 30.9 pg (26-34); Mean Corpuscular Volume 91.6 fl (80-100); Monocytes Absolute Auto 0.5 K/mm3 (0.1-0.6); Monocytes Percent Auto 7.1 % (2.6-8.5); Neutrophils Absolute Auto 5.2 K/mm3 (1.3-6.7); Neutrophils Percent Auto 82.4 % (45.5-73.1); Platelet Count Result 102 k/mm3 (150-375); Red Cell Distribution Width 15.1 % (11.5-14.5); White Blood Count 6.4 K/mm3 (4.5-10.0)
[2022-06-18 03:36] LABS: Alanine Aminotransferase 29 U/L (6-50); Albumin Level 4.3 g/dL (3.5-5.1); Alkaline Phosphatase 103 U/L (38-126); Anion Gap 7 mmol/L (8-16); Aspartate Amino Transferase 31 U/L (17-59); Bilirubin,Total 0.6 mg/dL (0.2-1.3); Blood Urea Nitrogen 10 mg/dL (9-20); Calcium 10.5 mg/dL (8.4-10.2); Carbon Dioxide 27 mmol/L (22-30); Chloride 108 mmol/L (98-107); Estimated Glomerular Filt Rate > 60; Glucose 133 mg/dL (65-110); Magnesium 1.8 mg/dL (1.6-2.3); Sodium 142 mmol/L (137-145)
[2022-06-18 03:45] LABS: Lipase 67 U/L (23-300)
[2022-06-18] MEDS: HYDROmorphone HCL INJ (*CRX) 1 MG/ML SYR 0.5 MG IV PUSH (04:16)
[2022-06-18 04:21] LABS: Appearance Urine Turbid (Clear); Bacteria Urine 4+ /hpf; Bilirubin Urine Negative (Negative); Blood Urine Negative (Negative); Color Urine Yellow (Yellow); Glucose Urine UA Negative (Negative); Ketones Urine Negative (Negative); Leukocyte Esterase Ur 2+ LEU/UL (Negative); Need Manual Microscopic Reviewed; Nitrate Urine Positive (Negative); Non Pathogenic Casts 0-2; Protein Urine Trace mg/dL (Negative); RBC Urine 0-2 /hpf (0-2); Specific Grav Ur 1.016 (1.001-1.035); Squamous Epithelial Cell Urine None seen /hpf (Few); WBC Urine 21-50 /hpf
[2022-06-18 04:22] LABS: Add Urine Microscopic? YES
[2022-06-18] MEDS: LORazepam INJ (*CRX) 2 MG/ML VIAL IV PUSH (04:56)
--- NOTE | 2022-06-18 05:47 | PM.IMHP ---
H&P: HPI History of Present Illness Date/Time: 06/18/22 05:47 Chief Complaint: Seizure Narrative: History and physical initially taken from chart review and discussion with ER physician and patient's who is at bedside. Patient is lethargic and postictal, unable to provide meaningful history. Patient is a 56-year-old male with past medical history of hepatitis and hepatocellular cancer status post treatment and history seizures coming in for a seizure episode. As per patient's patient has seizure episodes which look like patient staring into space and stiffening. There is no seizure tonic-clonic activity noted. Patient has known erratic medication compliance and as per patient would miss some of his doses. When patient arrived in the ER patient was still postictal and lethargic and ER physician witnessed another seizure. Patient was thus loaded with Keppra and given some IV fluids. He also had workup done which included a urinalysis which was dirty for which patient was started on ceftriaxone. Patient seen in the. Patient initially lethargic and unable to provide meaningful history. During my ongoing interview with the physical exam the patient, patient eventually woke up and was able to answer some questions. He is able to follow commands and does not appear to have any focal deficits. He denies any chest pain, fever, shortness of breath or diarrhea. Patient does admit to feeling nauseous with no actual vomiting, as well as some dysuria with urination. Review of Systems Review of Systems: no fever or weight loss no vision changes, no eye discharge no throat pain, no hoarseness, no lymphadenopathy no chest pain, no palpitations no coughing, no wheezing no abdominal pain, no diarrhea, no nausea, no vomiting Minimal dysuria no leg swelling, no edema no suicidal or homicidal ideation [facility] Past Medical History Medical History Alcohol abuse Most recent use 10/29/2020 Chronic pain syndrome Cirrhosis COPD (chronic obstructive pulmonary disease) GERD (gastroesophageal reflux disease) Hepatic encephalopathy Hepatocellular carcinoma radiation treatment Hepatocellular carcinoma History of hepatitis B Hx of peptic ulcer as a child Seizure Seizure Surgical History Surgical History History of cholecystectomy History of tibial fracture requiring surgical repair. Family History Family History Father Hypertension Cerebrovascular accident Myocardial infarct Sibling Hypertension Sibling Hypertension Father Hypertension Cerebrovascular accident Family history of coronary artery disease Sibling Hypertension Social History Social History Social History: Smokes 1/2 ppd since 17yo. He is trying to quit. Lives at home with his and children. He is a full code. The patient had 7 children. He is on disability. The patient continues to use marijuana gummies. He no longer uses cocaine or other illicit drugs. 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 Substance use: current Substance use type: marijuana Other substance usage details: has not had alcohol in 16 years/ was never a heavy drinker per Last use: no meth/cocaine in 16 years/uses marijuana currently for pain/appetite Living arrangements: with family Gender identity (if verbalized by the patient): Male Spiritual care concerns:
[2022-06-18 06:11] LABS: Ammonia 11 umol/L (9-30)
--- NOTE | 2022-06-18 06:27 | ADMGEN ---
This patient, Ronan Baez, was admitted to Medical Room 240-01. Patient/family oriented to hospital policies and general routines including ID bracelet, bed and alarms, visiting hours, pain management, procedures, bathroom and other care routines, personal items, smoking policy, room service/diet, and visiting hours. Information on how to activate the Rapid Response Team has been discussed. Patient/Family are encouraged to report perceived risks to care and to ask questions if they do not understand what they are told or what they should do.
[2022-06-18] MEDS: ONDANSETRON INJ 4 MG/2 ML VIAL IV PUSH (09:47)
--- NOTE | 2022-06-18 11:46 | WPDNEURCNPN ---
Assessment and Plan Assessment and plan (1) Breakthrough seizure: Code(s): G40.919 - Epilepsy, unspecified, intractable, without status epilepticus Status: Acute Plan breakthrough seizure in a person with the history of seizure disorder but somewhat noncompliance with the medication he has already been loaded in the ER with Keppra and the medication for the maintenance will be continued as such Keppra has been increased to 750 twice a day last year will need the more compliance a regular follow-up Consult date: 06/18/22 HPI: Ronan Baez is a 56 year old male Admitted to the hospital through the emergency room for the complaints of frequent seizures reportedly he was at home watching TV around 3 a.m. when his family noted that he was shaky and subsequently became postictal was brought to the emergency room for further evaluation and care and on initially visit in the ER he was postictal and not answering the questions appropriately. His medications included gabapentin 800 mg q.i.d., tenofovir 300 mg daily life fax remain 550 mg daily he is reportedly allergic to multiple medications. He carries the diagnosis of chronic pain syndrome with underlying cirrhosis, COPD, history of hepatic encephalopathy with history of hepatocellular carcinoma and post radiation, also seizure disorder he does have history of cholecystectomy. He has history of ears smoked 39 with smoking pack years of 39 and currently everyday smoker dosed ended up smoking on March 01, 2013 and never alcohol intake initial exam in the emergency room were grossly unremarkable including the vital signs was admitted to the hospital for further observation Review of Systems Review of Systems: All systems reviewed & are unremarkable except as noted in HPI and below PMFSH Past Medical History Medical History Alcohol abuse Most recent use 10/29/2020 Chronic pain syndrome Cirrhosis COPD (chronic obstructive pulmonary disease) GERD (gastroesophageal reflux disease) Hepatic encephalopathy Hepatocellular carcinoma radiation treatment Hepatocellular carcinoma History of hepatitis B Hx of peptic ulcer as a child Seizure Seizure Surgical History Surgical History History of cholecystectomy History of tibial fracture requiring surgical repair. Family History Family History Father Hypertension Cerebrovascular accident Myocardial infarct Sibling Hypertension Sibling Hypertension Father Hypertension Cerebrovascular accident Family history of coronary artery disease Sibling Hypertension Social History Social History (Updated 06/18/22 @ 06:56 by NEVAEH Braxton) Social History: Smokes 1/2 ppd since 17yo. He is trying to quit. Lives at home with his and children. He is a full code. The patient had 7 children. He is on disability. The patient continues to use marijuana gummies. He no longer uses cocaine or other illicit drugs. 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 Alcohol intake: never Alcohol use details: Alcohol use noted 10/29/2020 with etoh level of 24. Substance use: current Substance use type: marijuana Other substance usage details: has not had alcohol in 16 years/ was never a heavy drinker per Last use: no meth/cocaine in 16 years/uses marijuana currently for pain/appetite Lack of Transportation: YES Lack of Food: Sometimes True Current Housing: I Have Housing Concerned About [facility]
--- NOTE | 2022-06-18 13:12 | PC.NURSE ---
On 06/18/22, the student, [Richard Neal], provided care and completed [facility] documentation on this patient. I have reviewed the student's documentation and agree with the findings.
--- NOTE | 2022-06-18 13:30 | P.PNIM_ITS ---
Progress Note: A&P Assessment and Plan (1) Seizure: Code(s): R56.9 - Unspecified convulsions Status: Acute Assessment and Plan: * history of seizure disorder, with erratic medication compliance coming in for seizure activity. * Last seizure episode was back in March per . * Keppra loaded in the ED, continue with home dose of 750mg IV BID and was increased back in * Seizure precautions * Ativan p.r.n. * Neurology consult (2) Cirrhosis of liver: Qualifiers: Ascites presence: without ascites Hepatic cirrhosis type: unspecified hepatic cirrhosis Qualified Code(s): K74.60 - Unspecified cirrhosis of liver Code(s): K74.60 - Unspecified cirrhosis of liver Status: Acute Assessment and Plan: * Patient with known liver cirrhosis and hepatitis, undergoing continued treatment and follow-up with his inspector [employer]assemblies. * LFTs appears stable. 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 * Follows up regularly with his inspector [employer]assemblies. * Previous imaging from our institution show left-sided liver mass about [address] scan of the abdomen last January 2022 * MRI was done at that time and as per inspector subassemblies there is no sign continued cancer activity. * Chronic and stable * Continue outpatient follow up (4) UTI (urinary tract infection): Code(s): N39.0 - Urinary tract infection, site not specified Status: Acute Assessment and Plan: * Complaints of some dysuria with a dirty urine. * Continue empiric therapy with ceftriaxone * Transition to oral meds on discharge. * Await urine culture * adjust per sensitivities (5) Breakthrough seizure: Code(s): G40.919 - Epilepsy, unspecified, intractable, without status epilepticus Status: Acute Assessment and Plan: * Keppra just increased to 750mg * Continue Keppra * Seizure precautions * Neuro on board * Continue to trend symptoms (6) Acute metabolic encephalopathy: Code(s): G93.41 - Metabolic encephalopathy Status: Acute Assessment and Plan: * Presented with lethargy and altered mental status, attributed to postictal state. * Reported seizure at home and in the ER had another witnessed seizure by the ER physician. * Initially postictal however eventually woke. * weak looking and lethargic however did not have any focal deficits and was following commands. * Continue to monitor for neurological improvement. * Seems stable Time Spent With Patient Time: 48 minutes Time with patient: Greater than 35 minutes Subjective Date/time seen: 06/18/221329 Interval history: 06/18/221329 Patient is doing ok. He stated that he wanted to go home. He is having some nausea, and vomiting. He denies any chest pain, shortness of breath, diarrhea, or constipation. He did state that his back hurts, and the IV in his arm. New IV was restarted. Currently he feels ok at this time. 06/18/22? 05:47 History and physical initially taken from chart review and discussion with ER physicia
--- NOTE | 2022-06-18 13:30 | PM.IMPN ---
Progress Note: A&P Assessment and Plan (1) Seizure: Code(s): R56.9 - Unspecified convulsions Status: Acute Assessment and Plan: history of seizure disorder, with erratic medication compliance coming in for seizure activity. Last seizure episode was back in March per . Keppra loaded in the ED, continue with home dose of 750mg IV BID and was increased back in Janurary Seizure precautions Ativan p.r.n. Neurology consult (2) Cirrhosis of liver: Qualifiers: Ascites presence: without ascites Hepatic cirrhosis type: unspecified hepatic cirrhosis Qualified Code(s): K74.60 - Unspecified cirrhosis of liver Code(s): K74.60 - Unspecified cirrhosis of liver Status: Acute Assessment and Plan: Patient with known liver cirrhosis and hepatitis, undergoing continued treatment and follow-up with his [employer]. LFTs appears stable. 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 Follows up regularly with his [employer]. Previous imaging from our institution show left-sided liver mass about [address] scan of the abdomen last January 2022 MRI was done at that time and as per [employer] there is no sign continued cancer activity. Chronic and stable Continue outpatient follow up (4) UTI (urinary tract infection): Code(s): N39.0 - Urinary tract infection, site not specified Status: Acute Assessment and Plan: Complaints of some dysuria with a dirty urine. Continue empiric therapy with ceftriaxone Transition to oral meds on discharge. Await urine culture adjust per sensitivities (5) Breakthrough seizure: Code(s): G40.919 - Epilepsy, unspecified, intractable, without status epilepticus Status: Acute Assessment and Plan: Keppra just increased to 750mg Continue Keppra Seizure precautions Neuro on board Continue to trend symptoms (6) Acute metabolic encephalopathy: Code(s): G93.41 - Metabolic encephalopathy Status: Acute Assessment and Plan: Presented with lethargy and altered mental status, attributed to postictal state. Reported seizure at home and in the ER had another witnessed seizure by the ER physician. Initially postictal however eventually woke. weak looking and lethargic however did not have any focal deficits and was following commands. Continue to monitor for neurological improvement. Seems stable Time Spent With Patient Time: 48 minutes Time with patient: Greater than 35 minutes Subjective Date/time seen: 06/18/221329 Interval history: 06/18/221329 Patient is doing ok. He stated that he wanted to go home. He is having some nausea, and vomiting. He denies any chest pain, shortness of breath, diarrhea, or constipation. He did state that his back hurts, and the IV in his arm. New IV was restarted. Currently he feels ok at this time. 06/18/22? 05:47 History and physical initially taken from chart review and discussion with ER physician and patient's who is at bedside.? Patient is lethargic and postictal, unable to provide meaningful history. Patient is a 56-year-old male with past medical history of hepatitis and hepatocellular cancer status post treatment and history seizures coming in for a seizure episode.? As per patient's patient has seizure episodes which look like patient staring into space and stiffening.? There is no seizure tonic-clonic activity noted.? Patient has known erratic medication compliance and as per patient would miss some of his doses.? When patient arrived in the ER patient was still postictal and letharg
[2022-06-18] MEDS: MORPHINE SULFATE (*CRX) 2 MG/ML INJ 1 MG IV PUSH (15:31)
[2022-06-18] MEDS: METOCLOPRAMIDE HCL INJ 10 MG/2 ML VIAL IV PUSH (15:31)
[2022-06-18] MEDS: levETIRAcetam IV 750 MG in DEXTROSE 5% 100 ML 430 MG IVPB (17:52)
[2022-06-19] VITALS: PULSE 78
[2022-06-19 04:00] VITALS: PULSE 66
[2022-06-19 04:06] VITALS: BP 134/77; PULSE 68; RESP 18; TEMP 36.6; O2SAT 96
[2022-06-19] MEDS: levETIRAcetam IV 750 MG in DEXTROSE 5% 100 ML 430 MG IVPB (06:16)
[2022-06-19 06:26] LABS: Basophils Percent Auto 0.4 % (0.2-1.2); Eosinophils Absolute Auto 0.2 K/mm3 (0-0.3); Eosinophils Percent Auto 3.3 % (0-4.4); Hematocrit 39.3 % (42.0-52.0); Hemoglobin 13.2 g/dL (14.0-18.0); Immature Granulocyte Absolute 0.01 K/mm3 (0.00-0.031); Immature Granulocyte Percent A 0.2 % (0-0.5); Immature Platelet Fraction Pct 6.6 % (0.9-11.2); Lymphocytes Absolute Auto 1.04 K/mm3 (0.9-3.2); Lymphocytes Percent Auto 22.7 % (18.3-44.2); Mean Corpuscular HGB Conc 33.6 g/dl (32-36); Mean Corpuscular Hemoglobin 30.5 pg (26-34); Mean Corpuscular Volume 90.8 fl (80-100); Mean Platelet Volume 11.6 fl (7.4-10.4); Monocytes Absolute Auto 0.4 K/mm3 (0.1-0.6); Monocytes Percent Auto 8.7 % (2.6-8.5); Neutrophils Percent Auto 64.7 % (45.5-73.1); Platelet Count Result 84 k/mm3 (150-375); Red Blood Count 4.33 M/mm3 (4.6-6.20); Red Cell Distribution Width 14.7 % (11.5-14.5); White Blood Count 4.6 K/mm3 (4.5-10.0)
[2022-06-19 07:08] LABS: Alanine Aminotransferase 26 U/L (6-50); Albumin Level 4.2 g/dL (3.5-5.1); Alkaline Phosphatase 85 U/L (38-126); Anion Gap 6 mmol/L (8-16); Aspartate Amino Transferase 33 U/L (17-59); Bilirubin,Total 0.8 mg/dL (0.2-1.3); Blood Urea Nitrogen 12 mg/dL (9-20); Calcium 9.3 mg/dL (8.4-10.2); Carbon Dioxide 27 mmol/L (22-30); Chloride 108 mmol/L (98-107); Estimated CRCL calculation 82 ml/min; Estimated Glomerular Filt Rate > 60; Glucose 92 mg/dL (65-110); Magnesium 1.7 mg/dL (1.6-2.3); Potassium 3.7 mmol/L (3.4-5.0); Sodium 141 mmol/L (137-145)
--- NOTE | 2022-06-19 07:18 | P.PNIM_ITS ---
Progress Note: A&P Assessment and Plan (1) Seizure: Code(s): R56.9 - Unspecified convulsions Status: Acute Assessment and Plan: * history of seizure disorder, with erratic medication compliance coming in for seizure activity. * Last seizure episode was back in March per . * Keppra loaded in the ED, continue with home dose of 750mg IV BID and was increased back in * Seizure precautions * Ativan p.r.n. * Neurology consult (2) Cirrhosis of liver: Qualifiers: Ascites presence: without ascites Hepatic cirrhosis type: unspecified hepatic cirrhosis Qualified Code(s): K74.60 - Unspecified cirrhosis of liver Code(s): K74.60 - Unspecified cirrhosis of liver Status: Acute Assessment and Plan: * Patient with known liver cirrhosis and hepatitis, undergoing continued treatment and follow-up with his way inspector. 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 * Follows up regularly with his way inspector. * Previous imaging from our institution show left-sided liver mass about [address] scan of the abdomen last January 2022 * MRI was done at that time and as per way inspector there is no sign continued cancer activity. * Chronic and stable * Continue outpatient follow up (4) UTI (urinary tract infection): Code(s): N39.0 - Urinary tract infection, site not specified Status: Acute Assessment and Plan: * Complaints of some dysuria with a dirty urine. * Continue empiric therapy with ceftriaxone * Transition to oral meds on discharge. * Await urine culture * adjust per sensitivities (5) Breakthrough seizure: Code(s): G40.919 - Epilepsy, unspecified, intractable, without status epilepticus Status: Acute Assessment and Plan: * Keppra just increased to 750mg * Continue Keppra * Seizure precautions * Neuro on board * Continue to trend symptoms (6) Acute metabolic encephalopathy: Code(s): G93.41 - Metabolic encephalopathy Status: Acute Assessment and Plan: * Presented with lethargy and altered mental status, attributed to postictal state. * Reported seizure at home and in the ER had another witnessed seizure by the ER physician. * Initially postictal however eventually woke. * weak looking and lethargic however did not have any focal deficits and was following commands. * Continue to monitor for neurological improvement. * Seems stable * Resolved seems baseline Time Spent With Patient Time: 48 minutes Time with patient: Greater than 35 minutes Subjective Date/time seen: 06/19/22 07:18 Interval history: 06/19/22 06/18/22 1330 Patient is doing ok. He stated that he wanted to go home. He is having some nausea, and vomiting. He denies any chest pain, shortness of breath, diarrhea, or constipation. He did state that his back hurts, and the IV in his arm. New IV was restarted. Currently he feels ok at this time. 06/18/22? 05:47 History and physical initially angie
--- NOTE | 2022-06-19 07:18 | PM.IMPN ---
Progress Note: A&P Assessment and Plan (1) Seizure: Code(s): R56.9 - Unspecified convulsions Status: Acute Assessment and Plan: history of seizure disorder, with erratic medication compliance coming in for seizure activity. Last seizure episode was back in March per . Keppra loaded in the ED, continue with home dose of 750mg IV BID and was increased back in Janurary Seizure precautions Ativan p.r.n. Neurology consult (2) Cirrhosis of liver: Qualifiers: Ascites presence: without ascites Hepatic cirrhosis type: unspecified hepatic cirrhosis Qualified Code(s): K74.60 - Unspecified cirrhosis of liver Code(s): K74.60 - Unspecified cirrhosis of liver Status: Acute Assessment and Plan: Patient with known liver cirrhosis and hepatitis, undergoing continued treatment and follow-up with his flexographic printing machinist. 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 Follows up regularly with his flexographic printing machinist. Previous imaging from our institution show left-sided liver mass about [address] scan of the abdomen last January 2022 MRI was done at that time and as per flexographic printing machinist there is no sign continued cancer activity. Chronic and stable Continue outpatient follow up (4) UTI (urinary tract infection): Code(s): N39.0 - Urinary tract infection, site not specified Status: Acute Assessment and Plan: Complaints of some dysuria with a dirty urine. Continue empiric therapy with ceftriaxone Transition to oral meds on discharge. Await urine culture adjust per sensitivities (5) Breakthrough seizure: Code(s): G40.919 - Epilepsy, unspecified, intractable, without status epilepticus Status: Acute Assessment and Plan: Keppra just increased to 750mg Continue Keppra Seizure precautions Neuro on board Continue to trend symptoms (6) Acute metabolic encephalopathy: Code(s): G93.41 - Metabolic encephalopathy Status: Acute Assessment and Plan: Presented with lethargy and altered mental status, attributed to postictal state. Reported seizure at home and in the ER had another witnessed seizure by the ER physician. Initially postictal however eventually woke. weak looking and lethargic however did not have any focal deficits and was following commands. Continue to monitor for neurological improvement. Seems stable Resolved seems baseline Time Spent With Patient Time: 48 minutes Time with patient: Greater than 35 minutes Subjective Date/time seen: 06/19/22 07:18 Interval history: 06/19/22 06/18/22 1330 Patient is doing ok. He stated that he wanted to go home. He is having some nausea, and vomiting. He denies any chest pain, shortness of breath, diarrhea, or constipation. He did state that his back hurts, and the IV in his arm. New IV was restarted. Currently he feels ok at this time. 06/18/22? 05:47 History and physical initially taken from chart review and discussion with ER physician and patient's who is at bedside.? Patient is lethargic and postictal, unable to provide meaningful history. Patient is a 56-year-old male with past medical history of hepatitis and hepatocellular cancer status post treatment and history seizures coming in for a seizure episode.? As per patient's patient has seizure episodes which look like patient staring into space and stiffening.? There is no seizure tonic-clonic activity noted.? Patient has known erratic medication compliance and as per patient would miss some of his doses.? When patient arrived in the ER patien
--- NOTE | 2022-06-19 08:02 | PC.NURSE ---
Patient very anxious saying I can walk out right now if I want to. I don't have to wait on no doctor Patient wants to talk to . Solar Crew Member helped patient call on room telephone.
--- NOTE | 2022-06-19 08:40 | PC.NURSE ---
Patient at nurses station. Requesting to have IV removed. Stating he is leaving. Patient signed AMA papers. IV removed. Patient was told the risks.
--- NOTE | 2022-06-19 12:07 | P.DS_ITS ---
DS: Admitting Diagnosis Discharge Date 06/19/22 Admitting Diagnosis Recurrent seizures, UTI DS: Discharge Diagnosis Discharge Diagnosis (1) Seizure: Code(s): R56.9 - Unspecified convulsions Status: Acute Assessment and Plan: * history of seizure disorder, with erratic medication compliance coming in for seizure activity. * Last seizure episode was back in March per . * Keppra loaded in the ED, continue with home dose of 750mg IV BID and was increased back in * Seizure precautions * Ativan p.r.n. * Neurology consult (2) Cirrhosis of liver: Qualifiers: Ascites presence: without ascites Hepatic cirrhosis type: unspecified hepatic cirrhosis Qualified Code(s): K74.60 - Unspecified cirrhosis of liver Code(s): K74.60 - Unspecified cirrhosis of liver Status: Acute Assessment and Plan: * Patient with known liver cirrhosis and hepatitis, undergoing continued treatment and follow-up with his microphone operator. 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 * Follows up regularly with his microphone operator. * Previous imaging from our institution show left-sided liver mass about [address] scan of the abdomen last January 2022 * MRI was done at that time and as per microphone operator there is no sign continued cancer activity. * Chronic and stable * Continue outpatient follow up (4) UTI (urinary tract infection): Code(s): N39.0 - Urinary tract infection, site not specified Status: Acute Assessment and Plan: * Complaints of some dysuria with a dirty urine. * Continue empiric therapy with ceftriaxone * Transition to oral meds on discharge. * Await urine culture * adjust per sensitivities (5) Breakthrough seizure: Code(s): G40.919 - Epilepsy, unspecified, intractable, without status epilepticus Status: Acute Assessment and Plan: * Keppra just increased to 750mg * Continue Keppra * Seizure precautions * Neuro on board * Continue to trend symptoms (6) Acute metabolic encephalopathy: Code(s): G93.41 - Metabolic encephalopathy Status: Acute Assessment and Plan: * Presented with lethargy and altered mental status, attributed to postictal state. * Reported seizure at home and in the ER had another witnessed seizure by the ER physician. * Initially postictal however eventually woke. * weak looking and lethargic however did not have any focal deficits and was following commands. * Continue to monitor for neurological improvement. * Seems stable * Resolved seems baseline DS: Summary Hospital Course Hospital Course: patient is a 56-year-old male with a past medical history of hepatitis, hepatocellular cancer, seizures who presented to the ED after having a seizure at home. Upon arrival to the ED patient was given 3 g of Keppra. Neurology was consulted. patient did have a witnessed seizure in the ED and was given Ativan for further control. UA was also noted to be infectious and urine cultures still pending. Patient wa
--- NOTE | 2022-06-19 12:07 | PM.DS ---
DS: Admitting Diagnosis Discharge Date 06/19/22 Admitting Diagnosis Recurrent seizures, UTI DS: Discharge Diagnosis Discharge Diagnosis (1) Seizure: Code(s): R56.9 - Unspecified convulsions Status: Acute Assessment and Plan: history of seizure disorder, with erratic medication compliance coming in for seizure activity. Last seizure episode was back in March per . Keppra loaded in the ED, continue with home dose of 750mg IV BID and was increased back in Janurary Seizure precautions Ativan p.r.n. Neurology consult (2) Cirrhosis of liver: Qualifiers: Ascites presence: without ascites Hepatic cirrhosis type: unspecified hepatic cirrhosis Qualified Code(s): K74.60 - Unspecified cirrhosis of liver Code(s): K74.60 - Unspecified cirrhosis of liver Status: Acute Assessment and Plan: Patient with known liver cirrhosis and hepatitis, undergoing continued treatment and follow-up with his sight mounter. 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 Follows up regularly with his sight mounter. Previous imaging from our institution show left-sided liver mass about [address] scan of the abdomen last January 2022 MRI was done at that time and as per sight mounter there is no sign continued cancer activity. Chronic and stable Continue outpatient follow up (4) UTI (urinary tract infection): Code(s): N39.0 - Urinary tract infection, site not specified Status: Acute Assessment and Plan: Complaints of some dysuria with a dirty urine. Continue empiric therapy with ceftriaxone Transition to oral meds on discharge. Await urine culture adjust per sensitivities (5) Breakthrough seizure: Code(s): G40.919 - Epilepsy, unspecified, intractable, without status epilepticus Status: Acute Assessment and Plan: Keppra just increased to 750mg Continue Keppra Seizure precautions Neuro on board Continue to trend symptoms (6) Acute metabolic encephalopathy: Code(s): G93.41 - Metabolic encephalopathy Status: Acute Assessment and Plan: Presented with lethargy and altered mental status, attributed to postictal state. Reported seizure at home and in the ER had another witnessed seizure by the ER physician. Initially postictal however eventually woke. weak looking and lethargic however did not have any focal deficits and was following commands. Continue to monitor for neurological improvement. Seems stable Resolved seems baseline DS: Summary Hospital Course Hospital Course: patient is a 56-year-old male with a past medical history of hepatitis, hepatocellular cancer, seizures who presented to the ED after having a seizure at home. Upon arrival to the ED patient was given 3 g of Keppra. Neurology was consulted. patient did have a witnessed seizure in the ED and was given Ativan for further control. UA was also noted to be infectious and urine cultures still pending. Patient was initiated on IV ceftriaxone for further treatment. Patient was having some nausea vomiting abdominal x-ray was taken with no acute findings noted. Patient today decided to leave AMA as he wanted to have a cigarette and 1 his IV out. According to the nurse the nurse did review the risk and benefits of leaving AMA. Patient refused to stay IV was removed and patient left. Patient has been stable overnight with no acute issues. Will follow his urine culture and call in antibiotics if indicated. Smoking cessation education was given to the patient however patient is not interested in quitting at t
[2022-06-21 18:21] LABS: Levetiracetam Keppra 66.2 mcg/mL (6.0-46.0)
== END 2022-06-19 08:40 | disposition left against medical advice (07) ==
LOC: ANHED 05:13 → ANH2MED 06:06
PROVIDERS: Nurse Practitioner; Admitting Provider Internal Medicine; Emergency Provider Emergency Medicine; PCP Internal Medicine Gastroenterology; Visit Provider Chiropractor
DX: G40.919 Epilepsy, unspecified, intractable, without status epilepticus (principal); Z91.148 Patient's other noncompliance with medication regimen for other reason; K74.60 Unspecified cirrhosis of liver; R16.0 Hepatomegaly, not elsewhere classified; N39.0 Urinary tract infection, site not specified; B96.20 Unspecified Escherichia coli [E. coli] as the cause of diseases classified elsewhere; G93.41 Metabolic encephalopathy; R41.82 Altered mental status, unspecified; F10.10 Alcohol abuse, uncomplicated; Y90.1 Blood alcohol level of 20-39 mg/100 ml; G89.4 Chronic pain syndrome; J44.9 Chronic obstructive pulmonary disease, unspecified; K21.9 Gastro-esophageal reflux disease without esophagitis; K76.82 Hepatic encephalopathy; C22.0 Liver cell carcinoma; F17.210 Nicotine dependence, cigarettes, uncomplicated; F12.90 Cannabis use, unspecified, uncomplicated; Z86.19 Personal history of other infectious and parasitic diseases; Z79.51 Long term (current) use of inhaled steroids; Z79.899 Other long term (current) drug therapy
CPT/HCPCS: 36415; 71045; 74018; 80053; 80177; 81001; 82140; 83690; 83735; 85025; 85055; 87077; 87086; 87186; 93005; 96365; 96367; 96375; 96376; 99283; 99285; G0378; J0696; J1170; J1953; J2060; J2270; J2405; J2765; J7030

== ENCOUNTER 2022-06-19 09:01 | Emergency (ER) | payer MEDICARE, MEDICAID, SELFPAY ==
[2022-06-19 09:10] VITALS: BP 136/87; PULSE 99; RESP 20; TEMP 36.6; O2SAT 99
[2022-06-19 09:12] VITALS: PULSE 89; RESP 26; O2SAT 100
[2022-06-19 09:15] VITALS: PULSE 84; RESP 24; O2SAT 100
--- NOTE | 2022-06-19 09:27 | ED.RECABL ---
HPI - Recheck/Abnormal Lab/Rx General Chief Complaint: Recheck/Abnormal Lab/Rx Stated Complaint: low potassium Time Seen by Provider: 06/19/22 09:11 History of Present Illness HPI narrative: Patient admitted here for seizures, he has a history of seizures. Had also been found to have a UTI and was being treated for this. He left AGAINST MEDICAL ADVICE this morning because he wanted a cigarette and there has been confusion and miscommunication about whether or not he could leave and come back. They told him that he had low potassium and could have a seizure. Related Data Home Medications Medication Instructions Recorded Confirmed omeprazole 40 mg capsule,delayed 40 mg PO DAILY 01/17/20 06/18/22 release calcium carbonate 600 mg-vitamin 1 cap PO BID 02/16/20 06/18/22 D3 5 mcg (200 unit) capsule (Calcium 600 + D(3)) gabapentin 800 mg tablet 800 mg PO QID 02/16/20 06/18/22 tenofovir disoproxil fumarate 300 300 mg PO DAILY 02/16/20 06/18/22 mg tablet budesonide-formoterol HFA 160 2 puff inhalation BID 08/26/20 06/18/22 mcg-4.5 mcg/actuation aerosol inhaler (Symbicort) ondansetron 8 mg disintegrating 8 mg translingual Q8H PRN Nausea 09/22/20 06/18/22 tablet albuterol sulfate 2.5 mg/3 mL 2.5 mg continuous nebulization PRN 09/23/20 06/18/22 (0.083 %) solution for nebulization albuterol sulfate 90 mcg/actuation 2 puff inhalation Q4-6H PRN 01/11/21 06/18/22 aerosol inhaler Shortness Of Breath Or Wheezing tamsulosin 0.4 mg capsule 0.4 mg PO DAILY 01/11/21 06/18/22 Allergies Allergy/AdvReac Type Severity Reaction Status Date / Time hornet venom Allergy Unknown Unknown Verified 04/06/22 16:39 strawberry Allergy Unknown Unknown Verified 04/06/22 16:39 ciprofloxacin Allergy Unknown Verified 04/06/22 16:39 fentanyl Allergy Unknown Verified 04/06/22 16:39 metronidazole AdvReac Unknown Nausea And Verified 04/06/22 16:39 Vomiting Review of Systems Review of Systems: CONST: No fever. HEENT: No sore throat C/V: No chest pain RESP: No cough GI: No nausea or vomiting : No dysuria. M/S: No joint pain. SKIN: No rash. NEURO: [No headache or focal numbness or weakness] PSYCH: [No depression] [facility] Past Medical History Medical History Alcohol abuse Most recent use 10/29/2020 Chronic pain syndrome Cirrhosis COPD (chronic obstructive pulmonary disease) GERD (gastroesophageal reflux disease) Hepatic encephalopathy Hepatocellular carcinoma radiation treatment Hepatocellular carcinoma History of hepatitis B Hx of peptic ulcer as a child Seizure Seizure Surgical History Surgical History History of cholecystectomy History of tibial fracture requiring surgical repair. Family History Family History Father Hypertension Cerebrovascular accident Myocardial infarct Sibling Hypertension Sibling Hypertension Father Hypertension Cerebrovascular accident Family history of coronary artery disease Sibling Hypertension Social History Social History Social History: Smokes 1/2 ppd since 17yo. He is trying to quit. Lives at home with his and children. He is a full code. The patient had 7 children. He is on disability. The patient continues to use marijuana gummies. He no longer uses cocaine or other illicit drugs. 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 Alcohol intake: never Alcohol use details: Alcohol use noted 10/29/2020 wi
--- NOTE | 2022-06-19 09:32 | PC.NURSE ---
Pt. walked out of the ED stating no one tells him want to do. Pt. ambulated out of the ED with a steady gait. ERP notified and aware.
== END 2022-06-19 09:35 | disposition left against medical advice (07) ==
PROVIDERS: Emergency Provider Emergency Medicine; PCP Internal Medicine Gastroenterology
DX: N39.0 Urinary tract infection, site not specified (principal); G40.909 Epilepsy, unspecified, not intractable, without status epilepticus; K74.60 Unspecified cirrhosis of liver; J44.9 Chronic obstructive pulmonary disease, unspecified; K76.82 Hepatic encephalopathy; K21.9 Gastro-esophageal reflux disease without esophagitis; G89.4 Chronic pain syndrome; Z92.3 Personal history of irradiation; Z86.19 Personal history of other infectious and parasitic diseases; Z90.49 Acquired absence of other specified parts of digestive tract; F17.210 Nicotine dependence, cigarettes, uncomplicated
CPT/HCPCS: 99283

== ENCOUNTER 2022-06-23 23:25 | Emergency (ER) | payer MEDICARE, MEDICAID, SELFPAY ==
[2022-06-23 23:24] VITALS: BP 129/70; PULSE 75; RESP 18; TEMP 36.9; O2SAT 95
[2022-06-23] MEDS: SODIUM CHLORIDE 0.9% IV 1,000 ML 999 ML IV CONT (23:59)
[2022-06-24 00:21] LABS: Alanine Aminotransferase 31 U/L (6-50); Albumin Level 4.5 g/dL (3.5-5.1); Alkaline Phosphatase 98 U/L (38-126); Anion Gap 7 mmol/L (8-16); Aspartate Amino Transferase 39 U/L (17-59); Bilirubin,Total 0.9 mg/dL (0.2-1.3); Blood Urea Nitrogen 6 mg/dL (9-20); Carbon Dioxide 27 mmol/L (22-30); Chloride 106 mmol/L (98-107); Estimated CRCL calculation 101 ml/min; Estimated Glomerular Filt Rate > 60; Glucose 110 mg/dL (65-110); Lipase 116 U/L (23-300); Potassium 3.7 mmol/L (3.4-5.0); Sodium 140 mmol/L (137-145)
[2022-06-24 00:27] LABS: Basophils Percent Auto 0.2 % (0.2-1.2); Eosinophils Absolute Auto 0.1 K/mm3 (0-0.3); Eosinophils Percent Auto 1.8 % (0-4.4); Hematocrit 38.8 % (42.0-52.0); Hemoglobin 13.3 g/dL (14.0-18.0); Immature Granulocyte Absolute 0.02 K/mm3 (0.00-0.031); Immature Granulocyte Percent A 0.4 % (0-0.5); Immature Platelet Fraction Pct 9.9 % (0.9-11.2); Lymphocytes Absolute Auto 0.76 K/mm3 (0.9-3.2); Lymphocytes Percent Auto 16.7 % (18.3-44.2); Mean Corpuscular HGB Conc 34.3 g/dl (32-36); Mean Corpuscular Hemoglobin 31.1 pg (26-34); Mean Corpuscular Volume 90.9 fl (80-100); Monocytes Absolute Auto 0.3 K/mm3 (0.1-0.6); Monocytes Percent Auto 6.8 % (2.6-8.5); Neutrophils Absolute Auto 3.4 K/mm3 (1.3-6.7); Neutrophils Percent Auto 74.1 % (45.5-73.1); Platelet Count Result 89 k/mm3 (150-375); Red Blood Count 4.27 M/mm3 (4.6-6.20); Red Cell Distribution Width 14.7 % (11.5-14.5); White Blood Count 4.5 K/mm3 (4.5-10.0)
[2022-06-24] MEDS: HALOPERIDOL LACTATE 5 MG/ML VIAL IV PUSH (00:33)
[2022-06-24] MEDS: FAMOTIDINE 20 MG/2 ML VIAL IV PUSH (01:34)
[2022-06-24] MEDS: ONDANSETRON INJ 4 MG/2 ML VIAL 8 MG IV PUSH (01:34)
[2022-06-24] MEDS: PROCHLORPERAZINE EDISYLATE 10 MG/2 ML VIAL IV PUSH (01:34)
[2022-06-24] MEDS: SODIUM CHLORIDE 0.9% IV 1,000 ML 999 ML IV CONT (01:35)
--- NOTE | 2022-06-24 02:00 | ED.GENADULT ---
HPI - General Adult General Chief complaint: Seizure Stated complaint: SZ AFTER SMOKING CANABIS Time Seen by Provider: 06/23/22 23:28 History of Present Illness HPI narrative: this is a 56-year-old male history of seizure disorder and daily marijuana use presenting to ED for seizures. He is well known to our department and the EMS system. Patient was smoking marijuana with his family and then had a seizure. They called EMS and brought him to the hospital. At this time the patient is postictal. patient was recently hospitalized for his seizure disorder and then left AMA. Related Data Home Medications Medication Instructions Recorded Confirmed omeprazole 40 mg capsule,delayed 40 mg PO DAILY 01/17/20 06/18/22 release calcium carbonate 600 mg-vitamin 1 cap PO BID 02/16/20 06/18/22 D3 5 mcg (200 unit) capsule (Calcium 600 + D(3)) gabapentin 800 mg tablet 800 mg PO QID 02/16/20 06/18/22 tenofovir disoproxil fumarate 300 300 mg PO DAILY 02/16/20 06/18/22 mg tablet budesonide-formoterol HFA 160 2 puff inhalation BID 08/26/20 06/18/22 mcg-4.5 mcg/actuation aerosol inhaler (Symbicort) ondansetron 8 mg disintegrating 8 mg translingual Q8H PRN Nausea 09/22/20 06/18/22 tablet albuterol sulfate 2.5 mg/3 mL 2.5 mg continuous nebulization PRN 09/23/20 06/18/22 (0.083 %) solution for nebulization albuterol sulfate 90 mcg/actuation 2 puff inhalation Q4-6H PRN 01/11/21 06/18/22 aerosol inhaler Shortness Of Breath Or Wheezing tamsulosin 0.4 mg capsule 0.4 mg PO DAILY 01/11/21 06/18/22 Allergies Allergy/AdvReac Type Severity Reaction Status Date / Time hornet venom Allergy Unknown Unknown Verified 04/06/22 16:39 strawberry Allergy Unknown Unknown Verified 04/06/22 16:39 ciprofloxacin Allergy Unknown Verified 04/06/22 16:39 fentanyl Allergy Unknown Verified 04/06/22 16:39 metronidazole AdvReac Unknown Nausea And Verified 04/06/22 16:39 Vomiting PMFSH Past Medical History Medical History Alcohol abuse Most recent use 10/29/2020 Chronic pain syndrome Cirrhosis COPD (chronic obstructive pulmonary disease) GERD (gastroesophageal reflux disease) Hepatic encephalopathy Hepatocellular carcinoma radiation treatment Hepatocellular carcinoma History of hepatitis B Hx of peptic ulcer as a child Seizure Seizure Surgical History Surgical History History of cholecystectomy History of tibial fracture requiring surgical repair. Family History Family History Father Hypertension Cerebrovascular accident Myocardial infarct Sibling Hypertension Sibling Hypertension Father Hypertension Cerebrovascular accident Family history of coronary artery disease Sibling Hypertension Social History Social History Social History: Smokes 1/2 ppd since 17yo. He is trying to quit. Lives at home with his and children. He is a full code. The patient had 7 children. He is on disability. The patient continues to use marijuana gummies. He no longer uses cocaine or other illicit drugs. 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 Alcohol intake: never Alcohol use details: Alcohol use noted 10/29/2020 with etoh level of 24. Substance use: current Substance use type: marijuana Other substance usage details: has not had alcohol in 16 years/ was never a heavy drinker per Last use: no meth/cocaine in 16 years/uses marijuana curr
[2022-06-24 02:01] LABS: Appearance Urine Cloudy (Clear); Bacteria Urine None Seen /hpf; Bilirubin Urine Negative (Negative); Blood Urine Negative (Negative); Color Urine Yellow (Yellow); Glucose Urine UA Negative (Negative); Ketones Urine Trace mg/dL (Negative); Leukocyte Esterase Ur Negative LEU/UL (Negative); Nitrate Urine Negative (Negative); Non Pathogenic Casts 0-2; Protein Urine Trace mg/dL (Negative); RBC Urine 0-2 /hpf (0-2); Specific Grav Ur 1.015 (1.001-1.035); Squamous Epithelial Cell Urine None seen /hpf (Few); Urobilinogen Urine 0.2 mg/dL (<2.0); WBC Urine 0-5 /hpf
[2022-06-24 02:06] LABS: Add Urine Microscopic? YES
[2022-06-24 02:33] LABS: Lactic Acid Reflex 1.1 mmol/L (0.7-2.0)
== END 2022-06-24 05:00 | disposition home or self-care (01) ==
LOC: ANHED 23:45
PROVIDERS: Emergency Provider Emergency Medicine; PCP Internal Medicine Gastroenterology
DX: R11.15 Cyclical vomiting syndrome unrelated to migraine (principal); G40.909 Epilepsy, unspecified, not intractable, without status epilepticus; J44.9 Chronic obstructive pulmonary disease, unspecified; K21.9 Gastro-esophageal reflux disease without esophagitis
CPT/HCPCS: 36415; 80053; 81001; 83605; 83690; 83735; 85025; 85055; 96361; 96365; 96375; 99284; J0780; J1630; J1953; J2405; J7030

== ENCOUNTER 2022-07-20 09:38 | Emergency (ER) | payer MEDICARE, MEDICAID, SELFPAY ==
--- NOTE | ~2022-07-20 | CT_ITS ---
EXAMINATION: CT abdomen pelvis w con DATE: 07/20/2022 11:23 INDICATION: Epigastric abdominal pain. TECHNIQUE: Computed tomography (CT) of the abdomen and pelvis was performed with 100 mL Omnipaque 350 intravenous contrast. Automated exposure control and iterative reconstruction technique were employe d. The dose-length product was 215.51 mGy-cm. COMPARISON: CT abdomen and pelvis 02/19/2022, 07/10/20, 04/23/19 FINDINGS: The visualized portions of the lung bases demonstrate mild emphysema. No pleural effusion. The heart size is normal. No pericardial effusion. Paraesophageal varices are noted. The liver demons trates a nodular surface contour, consistent with cirrhosis. There is a 2.5 cm hypodense mass in left hepatic lobe, stable from 04/23/19, likely benign. There is mild splenomegaly. There are changes of c holecystectomy. The pancreas, adrenal glands, and kidneys are normal. There is a splenorenal portacav al shunt. There are no dilated loops of bowel. The appendix is normal. There are no pathologically en larged lymph nodes. There is no free intraperitoneal fluid. There is lower lumbar levoscoliosis and s evere spondylosis. IMPRESSION: 1. Cirrhosis of the liver with portal venous hypertension. Reviewed, dictated and finalized at location A.
[2022-07-20 09:30] VITALS: BP 139/81; PULSE 92; RESP 16; TEMP 36.8; O2SAT 100
--- NOTE | 2022-07-20 09:39 | ECG_ITS ---
Measurements Intervals Mobile Rate: 80 P: 79 [place]: 145 QRS: 56 QRSD: 84 T: 74 QT: 363 QTc: 420 Interpretive Statements SINUS RHYTHM POSSIBLE LEFT ATRIAL ENLARGEMENT BORDERLINE ECG COMPARED TO ECG 06/18/2022 03:00:48 NO SIGNIFICANT CHANGES Electronically Signed On 07-20-2022 11:30:12 CDT by Davidson Juarez D.O.
[2022-07-20 09:40] VITALS: PULSE 90
[2022-07-20 10:54] VITALS: BP 122/72; PULSE 75; RESP 16; O2SAT 100
[2022-07-20 10:58] LABS: Basophils Percent Auto 0.5 % (0.2-1.2); Eosinophils Percent Auto 0.2 % (0-4.4); Hematocrit 39.6 % (42.0-52.0); Hemoglobin 13.6 g/dL (14.0-18.0); Immature Granulocyte Absolute 0.01 K/mm3 (0.00-0.031); Immature Granulocyte Percent A 0.2 % (0-0.5); Lymphocytes Absolute Auto 0.78 K/mm3 (0.9-3.2); Lymphocytes Percent Auto 13.5 % (18.3-44.2); Mean Corpuscular HGB Conc 34.3 g/dl (32-36); Mean Corpuscular Hemoglobin 30.2 pg (26-34); Mean Corpuscular Volume 87.8 fl (80-100); Mean Platelet Volume 10.4 fl (7.4-10.4); Monocytes Absolute Auto 0.4 K/mm3 (0.1-0.6); Monocytes Percent Auto 6.8 % (2.6-8.5); Neutrophils Absolute Auto 4.5 K/mm3 (1.3-6.7); Neutrophils Percent Auto 78.8 % (45.5-73.1); Platelet Count Result 145 k/mm3 (150-375); Red Blood Count 4.51 M/mm3 (4.6-6.20); Red Cell Distribution Width 14.7 % (11.5-14.5); White Blood Count 5.8 K/mm3 (4.5-10.0)
[2022-07-20] MEDS: ONDANSETRON INJ 4 MG/2 ML VIAL IV PUSH (11:00)
[2022-07-20] MEDS: MORPHINE SULFATE (*CRX) 4 MG/ML INJ IV PUSH (11:00)
[2022-07-20 11:04] LABS: Alanine Aminotransferase 38 U/L (6-50); Albumin Level 4.8 g/dL (3.5-5.1); Alkaline Phosphatase 118 U/L (38-126); Anion Gap 10 mmol/L (8-16); Aspartate Amino Transferase 42 U/L (17-59); Bilirubin,Total 0.8 mg/dL (0.2-1.3); Blood Urea Nitrogen 12 mg/dL (9-20); Calcium 9.3 mg/dL (8.4-10.2); Carbon Dioxide 22 mmol/L (22-30); Chloride 105 mmol/L (98-107); Estimated CRCL calculation 71 ml/min; Estimated Glomerular Filt Rate > 60; Glucose 107 mg/dL (65-110); Sodium 137 mmol/L (137-145)
--- NOTE | 2022-07-20 11:51 | ED.GENADULT ---
HPI - General Adult General Chief complaint: Syncope Stated complaint: syncopal Time Seen by Provider: 07/20/22 09:43 History of Present Illness HPI narrative: Patient is a 56-year-old male with history of liver cirrhosis and cyclic vomiting that presents to the ER with reports of syncope. Patient reports that he developed severe pain related to a hiatal hernia that he has which then caused him to pass out. He reports that his pain is in the epigastric and right upper quadrant region. There is no radiation. It is sharp in nature. Reports he has had pain related to this for several years. Cannot identify any aggravating factors. Related Data Home Medications Medication Instructions Recorded Confirmed omeprazole 40 mg capsule,delayed 40 mg PO DAILY 01/17/20 06/18/22 release calcium carbonate 600 mg-vitamin 1 cap PO BID 02/16/20 06/18/22 D3 5 mcg (200 unit) capsule (Calcium 600 + D(3)) gabapentin 800 mg tablet 800 mg PO QID 02/16/20 06/18/22 tenofovir disoproxil fumarate 300 300 mg PO DAILY 02/16/20 06/18/22 mg tablet budesonide-formoterol HFA 160 2 puff inhalation BID 08/26/20 06/18/22 mcg-4.5 mcg/actuation aerosol inhaler (Symbicort) ondansetron 8 mg disintegrating 8 mg translingual Q8H PRN Nausea 09/22/20 06/18/22 tablet albuterol sulfate 2.5 mg/3 mL 2.5 mg continuous nebulization PRN 09/23/20 06/18/22 (0.083 %) solution for nebulization albuterol sulfate 90 mcg/actuation 2 puff inhalation Q4-6H PRN 01/11/21 06/18/22 aerosol inhaler Shortness Of Breath Or Wheezing tamsulosin 0.4 mg capsule 0.4 mg PO DAILY 01/11/21 06/18/22 Allergies Allergy/AdvReac Type Severity Reaction Status Date / Time hornet venom Allergy Unknown Unknown Verified 07/20/22 09:41 strawberry Allergy Unknown Unknown Verified 07/20/22 09:41 ciprofloxacin Allergy Unknown Verified 07/20/22 09:41 fentanyl Allergy Unknown Verified 07/20/22 09:41 metronidazole AdvReac Unknown Nausea And Verified 07/20/22 09:41 Vomiting PMF Past Medical History Medical History Alcohol abuse Most recent use 10/29/2020 Chronic pain syndrome Cirrhosis COPD (chronic obstructive pulmonary disease) GERD (gastroesophageal reflux disease) Hepatic encephalopathy Hepatocellular carcinoma radiation treatment Hepatocellular carcinoma History of hepatitis B Hx of peptic ulcer as a child Seizure Seizure Surgical History Surgical History History of cholecystectomy History of tibial fracture requiring surgical repair. Family History Family History Father Hypertension Cerebrovascular accident Myocardial infarct Sibling Hypertension Sibling Hypertension Father Hypertension Cerebrovascular accident Family history of coronary artery disease Sibling Hypertension Social History Social History Social History: Smokes 1/2 ppd since 17yo. He is trying to quit. Lives at home with his and children. He is a full code. The patient had 7 children. He is on disability. The patient continues to use marijuana gummies. He no longer uses cocaine or other illicit drugs. 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 Alcohol intake: never Alcohol use details: Alcohol use noted 10/29/2020 with etoh level of 24. Substance use: current Substance use type: marijuana Other substance usage details: has not had alcohol in 16 years/ was never a heavy drinker per [place]
== END 2022-07-20 12:34 | disposition home or self-care (01) ==
PROVIDERS: Emergency Provider Emergency Medicine; PCP Internal Medicine Gastroenterology
DX: R10.13 Epigastric pain (principal); F17.210 Nicotine dependence, cigarettes, uncomplicated; J44.9 Chronic obstructive pulmonary disease, unspecified; K21.9 Gastro-esophageal reflux disease without esophagitis
CPT/HCPCS: 36415; 74177; 80053; 85025; 93005; 96374; 96375; 99284; J2270; J2405; Q9967

== ENCOUNTER 2022-08-13 08:41 | Emergency (ER) | payer MEDICARE, MEDICAID, SELFPAY ==
--- NOTE | ~2022-08-13 | XR_ITS ---
EXAMINATION: XR chest 2V DATE: 08/13/2022 10:00 INDICATION: Cough. TECHNIQUE: Frontal and lateral views of the chest were obtained. COMPARISON: Chest single view 06/18/2022, CT abdomen and pelvis 07/20/2022 FINDINGS: The lungs are hyperexpanded with chronic reticular opacities in the upper lobes, consistent with emphysema. No pleural effusion or pneumothorax. The heart size is normal. IMPRESSION: 1. Emphysema. Reviewed, dictated and finalized at location A. IMPRESSION: 1. Emphysema.
[2022-08-13 08:46] VITALS: BP 160/85; PULSE 82; RESP 16; TEMP 36.3; O2SAT 98
--- NOTE | 2022-08-13 09:24 | ED.URI ---
HPI - URI/Sore Throat General Chief Complaint: Upper Respiratory Infection Stated Complaint: vomitting,sore throat,stomach pain Time Seen by Provider: 08/13/22 09:11 Source: patient, family () and RN notes reviewed Mode of arrival: ambulatory Limitations: no limitations History of Present Illness HPI Narrative: Patient presents today complaining of 10 day history of cough and nasal congestion S with a 4 day history of sore throat and a 2 day history of vomiting. Patient has been vomiting to 3 times per day for the past 2 days. Currently rates his sore throat 11/08 and has been gargling with salt water. He has tried no [id number] prescription medication for symptoms prior to arrival. States he used to have a prescription for Zofran, but has run out. Reports recent exposure to strep throat. with similar symptoms. History of cyclic vomiting syndrome, liver cirrhosis. Related Data Home Medications Medication Instructions Recorded Confirmed omeprazole 40 mg capsule,delayed 40 mg PO DAILY 01/17/20 08/13/22 release calcium carbonate 600 mg-vitamin 1 cap PO BID 02/16/20 08/13/22 D3 5 mcg (200 unit) capsule (Calcium 600 + D(3)) gabapentin 800 mg tablet 800 mg PO QID 02/16/20 08/13/22 tenofovir disoproxil fumarate 300 300 mg PO DAILY 02/16/20 08/13/22 mg tablet budesonide-formoterol HFA 160 2 puff inhalation BID 08/26/20 08/13/22 mcg-4.5 mcg/actuation aerosol inhaler (Symbicort) ondansetron 8 mg disintegrating 8 mg translingual Q8H PRN Nausea 09/22/20 08/13/22 tablet albuterol sulfate 2.5 mg/3 mL 2.5 mg continuous nebulization PRN 09/23/20 08/13/22 (0.083 %) solution for nebulization albuterol sulfate 90 mcg/actuation 2 puff inhalation Q4-6H PRN 01/11/21 08/13/22 aerosol inhaler Shortness Of Breath Or Wheezing tamsulosin 0.4 mg capsule 0.4 mg PO DAILY 01/11/21 08/13/22 hydrocodone 5 mg-acetaminophen 325 1 tablet PO TID PRN Pain, Moderate 08/13/22 08/13/22 mg tablet lactulose 10 gram/15 mL oral 30 ml PO PRN PRN useasdirected 08/13/22 08/13/22 solution (Constulose) Allergies Allergy/AdvReac Type Severity Reaction Status Date / Time hornet venom Allergy Unknown Unknown Verified 08/13/22 08:53 strawberry Allergy Unknown Unknown Verified 08/13/22 08:53 ciprofloxacin Allergy Unknown Verified 08/13/22 08:53 fentanyl Allergy Unknown Verified 08/13/22 08:53 metronidazole AdvReac Unknown Nausea And Verified 08/13/22 08:53 Vomiting Review of Systems Review of Systems: CONSTITUTIONAL: Denies body aches, fever, chills, or sweats. EYES: Denies visual changes, redness, or discharge. ENT: Denies rhinorrhea, or otalgia.+ congestion, sore throat CARDIOVASCULAR: Denies chest pain, palpitations, or edema. RESPIRATORY: Denies dyspnea.+ cough GASTROINTESTINAL: Denies abdominal pain, or diarrhea.+ nausea vomiting GENITOURINARY: Denies dysuria or hematuria. SKIN: Denies rash, itching, or wounds. MUSCULOSKELETAL: Denies back pain, joint pain, or myalgia. NEUROLOGIC: Denies headache, numbness, tingling, or weakness. PSYCH: Denies depression or anxiety. [facility] Past Medical History Medical History Alcohol abuse Most recent use 10/29/2020 Chronic pain syndrome Cirrhosis COPD (chronic obstructive pulmonary disease) GERD (gastroesophageal reflux disease) Hepatic encephalopathy Hepatocellular carcinoma radiation treatment Hepatocellular carcinoma History of hepatitis B Hx of peptic ulcer as a child Seizure Seizure Surgical History Surgical History History of cholecystectomy History of tibial fracture requiring surgical repair. Family History Family History Father Hypertension Cerebrovascular accident Myocardial infarct Sibling Hypertension Sibling Hypertension Father Hypertension Cerebrovascular accident Fami
[2022-08-13] MEDS: ONDANSETRON HCL ODT 4 MG TABLET SUBLINGUAL ×2 (09:38→10:13)
== END 2022-08-13 10:29 | disposition home or self-care (01) ==
PROVIDERS: Emergency Provider Nurse Practitioner
DX: J01.90 Acute sinusitis, unspecified (principal); F17.210 Nicotine dependence, cigarettes, uncomplicated; F12.90 Cannabis use, unspecified, uncomplicated; J44.9 Chronic obstructive pulmonary disease, unspecified; K74.60 Unspecified cirrhosis of liver; K21.9 Gastro-esophageal reflux disease without esophagitis; G40.909 Epilepsy, unspecified, not intractable, without status epilepticus; Z85.05 Personal history of malignant neoplasm of liver; Z92.3 Personal history of irradiation
CPT/HCPCS: 71046; 87081; 87880; 99213; A9270; G0463

== ENCOUNTER 2022-09-06 03:52 | Emergency (ER) | payer MEDICARE, MEDICAID, SELFPAY ==
[2022-09-06] VITALS (14 sets, daily range): BP systolic 130–147; BP diastolic 69–76; PULSE 70–102; RESP 13–29; TEMP 36.1; O2SAT 94–100
--- NOTE | ~2022-09-06 | CT_ITS ---
EXAMINATION: CT abdomen pelvis w con DATE: 09/06/2022 05:10 INDICATION: Generalized abdominal pain. Nausea and vomiting. TECHNIQUE: Computed tomography (CT) of the abdomen and pelvis was performed with 100 mL Omnipaque 350 intravenous contrast. Automated exposure control and iterative reconstruction technique were employe d. The dose-length product was 193.79 mGy-cm. COMPARISON: CT abdomen and pelvis 07/20/2022, 05/22/17, 04/23/19, 02/19/22 FINDINGS: The visualized portions of the lung bases demonstrate mild emphysema. There are tree-in-bud opacities in left lower lobe, consistent with mild pneumonia. No pleural effusion. The heart size is normal. No pericardial effusion. Paraesophageal varices are noted. The liver demonstrates a nodular surface contour, consistent with cirrhosis. There is a 2.8 x 1.6 cm hypodense mass in left hepatic lo be. There is biliary duct dilatation in left hepatic lobe peripheral to the mass. There is mild splen omegaly. There are changes of cholecystectomy. The pancreas is dilated to 12 mm. The pancreas, adrena l glands, and kidneys are normal. There is calcified atherosclerosis of the aorta and many of the [facility] arteries. The prostate is mildly enlarged. There are no dilated loops of bowel. The appendix is no rmal. There are no pathologically enlarged lymph nodes. There is no free intraperitoneal fluid. There is severe lumbar spondylosis. IMPRESSION: 1. Mild pneumonia in left lower lobe. 2. Cirrhosis of the liver with portal venous hypertension. 3. 2.8 x 1.6 cm liver mass, stable from 04/23/19 and new from 05/22/17. This finding is intermediate pr obability for hepatocellular carcinoma. 4. Mild common duct dilatation status post cholecystectomy, stable from 02/19/2022. Reviewed, dictated and finalized at location E. IMPRESSION: 1. Mild pneumonia in left lower lobe. 2. Cirrhosis of the liver with portal venous hypertension. 3. 2.8 x 1.6 cm liver mass, stable from 04/23/19 and new from 05/22/17. This find ing is intermediate probability for hepatocellular carcinoma. 4. Mild common duct dilatation status post cholecystectomy, stable from 022.
[2022-09-06 04:25] LABS: Basophils Percent Auto 0.2 % (0.2-1.2); Eosinophils Percent Auto 0.1 % (0-4.4); Hematocrit 39.3 % (42.0-52.0); Hemoglobin 13.4 g/dL (14.0-18.0); Immature Granulocyte Absolute 0.02 K/mm3 (0.00-0.031); Immature Granulocyte Percent A 0.2 % (0-0.5); Immature Platelet Fraction Pct 7.6 % (0.9-11.2); Lymphocytes Absolute Auto 0.56 K/mm3 (0.9-3.2); Lymphocytes Percent Auto 6.9 % (18.3-44.2); Mean Corpuscular HGB Conc 34.1 g/dl (32-36); Mean Corpuscular Hemoglobin 30.8 pg (26-34); Mean Corpuscular Volume 90.3 fl (80-100); Mean Platelet Volume 11.3 fl (7.4-10.4); Monocytes Absolute Auto 0.3 K/mm3 (0.1-0.6); Monocytes Percent Auto 4.2 % (2.6-8.5); Neutrophils Absolute Auto 7.2 K/mm3 (1.3-6.7); Neutrophils Percent Auto 88.4 % (45.5-73.1); Platelet Count Result 137 k/mm3 (150-375); Red Blood Count 4.35 M/mm3 (4.6-6.20); Red Cell Distribution Width 14.8 % (11.5-14.5); White Blood Count 8.1 K/mm3 (4.5-10.0)
[2022-09-06] MEDS: SODIUM CHLORIDE 0.9% IV 1,000 ML 999 ML IV CONT (04:31)
[2022-09-06] MEDS: MORPHINE SULFATE (*CRX) 4 MG/ML INJ IV PUSH (04:32)
[2022-09-06] MEDS: HALOPERIDOL LACTATE 5 MG/ML VIAL IV PUSH (04:32)
[2022-09-06 04:44] LABS: Alanine Aminotransferase 26 U/L (6-50); Albumin Level 4.3 g/dL (3.5-5.1); Alkaline Phosphatase 130 U/L (38-126); Anion Gap 6 mmol/L (8-16); Aspartate Amino Transferase 37 U/L (17-59); Bilirubin,Total 1.1 mg/dL (0.2-1.3); Blood Urea Nitrogen 7 mg/dL (9-20); Calcium 9.9 mg/dL (8.4-10.2); Carbon Dioxide 26 mmol/L (22-30); Chloride 104 mmol/L (98-107); Estimated CRCL calculation 76 ml/min; Estimated Glomerular Filt Rate > 60; Glucose 118 mg/dL (65-110); Lipase 39 U/L (23-300); Potassium 4.5 mmol/L (3.4-5.0); Sodium 136 mmol/L (137-145)
[2022-09-06] MEDS: levETIRAcetam 500MG/NACL 100ML 500 MG/100 ML BAG 400 MG IVPB (04:56)
--- NOTE | 2022-09-06 04:57 | ED.GENADULT ---
HPI - General Adult General Chief complaint: Abdominal Pain Stated complaint: N/V, abd pain Time Seen by Provider: 09/06/22 04:13 History of Present Illness HPI narrative: Patient 56-year-old gentleman who presents the emergency department with chief complaint of abdominal pain nausea and vomiting. Patient reports he has history of cancer in his liver and also reports that he has history of cyclic vomiting syndrome. Patient reports that this has been going on for some time but the nausea and vomiting got worse today Related Data Home Medications Medication Instructions Recorded Confirmed omeprazole 40 mg capsule,delayed 40 mg PO DAILY 01/17/20 08/13/22 release calcium carbonate 600 mg-vitamin 1 cap PO BID 02/16/20 08/13/22 D3 5 mcg (200 unit) capsule (Calcium 600 + D(3)) gabapentin 800 mg tablet 800 mg PO QID 02/16/20 08/13/22 tenofovir disoproxil fumarate 300 300 mg PO DAILY 02/16/20 08/13/22 mg tablet budesonide-formoterol HFA 160 2 puff inhalation BID 08/26/20 08/13/22 mcg-4.5 mcg/actuation aerosol inhaler (Symbicort) ondansetron 8 mg disintegrating 8 mg translingual Q8H PRN Nausea 09/22/20 08/13/22 tablet albuterol sulfate 2.5 mg/3 mL 2.5 mg continuous nebulization PRN 09/23/20 08/13/22 (0.083 %) solution for nebulization albuterol sulfate 90 mcg/actuation 2 puff inhalation Q4-6H PRN 01/11/21 08/13/22 aerosol inhaler Shortness Of Breath Or Wheezing tamsulosin 0.4 mg capsule 0.4 mg PO DAILY 01/11/21 08/13/22 hydrocodone 5 mg-acetaminophen 325 1 tablet PO TID PRN Pain, Moderate 08/13/22 08/13/22 mg tablet lactulose 10 gram/15 mL oral 30 ml PO PRN PRN useasdirected 08/13/22 08/13/22 solution (Constulose) Allergies Allergy/AdvReac Type Severity Reaction Status Date / Time hornet venom Allergy Unknown Unknown Verified 09/06/22 04:30 strawberry Allergy Unknown Unknown Verified 09/06/22 04:30 ciprofloxacin Allergy Unknown Verified 09/06/22 04:30 fentanyl Allergy Unknown Verified 09/06/22 04:30 metronidazole AdvReac Unknown Nausea And Verified 09/06/22 04:30 Vomiting Review of Systems Review of Systems: A 10 system review of systems was completed on the patient and is negative except for what is stated in the HPI. Nursing and ancillary documentation was reviewed. [facility] Past Medical History Medical History Alcohol abuse Most recent use 10/29/2020 Chronic pain syndrome Cirrhosis COPD (chronic obstructive pulmonary disease) GERD (gastroesophageal reflux disease) Hepatic encephalopathy Hepatocellular carcinoma radiation treatment Hepatocellular carcinoma History of hepatitis B Hx of peptic ulcer as a child Seizure Seizure Surgical History Surgical History History of cholecystectomy History of tibial fracture requiring surgical repair. Family History Family History Father Hypertension Cerebrovascular accident Myocardial infarct Sibling Hypertension Sibling Hypertension Father Hypertension Cerebrovascular accident Family history of coronary artery disease Sibling Hypertension Social History Social History Social History: Smokes 1/2 ppd since 17yo. He is trying to quit. Lives at home with his and children. He is a full code. The patient had 7 children. He is on disability. The patient continues to use marijuana gummies. He no longer uses cocaine or other illicit drugs. 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
[2022-09-06 05:42] LABS: Appearance Urine Clear (Clear); Bacteria Urine 4+ /hpf; Bilirubin Urine Negative (Negative); Blood Urine Negative (Negative); Color Urine Yellow (Yellow); Glucose Urine UA Negative (Negative); Ketones Urine 1+ mg/dL (Negative); Leukocyte Esterase Ur Trace LEU/UL (Negative); Nitrate Urine Positive (Negative); Non Pathogenic Casts 0-2; Protein Urine 2+ mg/dL (Negative); RBC Urine 0-2 /hpf (0-2); Specific Grav Ur 1.041 (1.001-1.035); Squamous Epithelial Cell Urine None seen /hpf (Few); pH Urine 6.5 (5.0-9.0)
[2022-09-06 05:43] LABS: Add Urine Microscopic? YES
--- NOTE | 2022-09-06 06:13 | PC.NURSE ---
Patient states he is feeling better, give water and crackers for PO challenge.
== END 2022-09-06 06:34 | disposition home or self-care (01) ==
PROVIDERS: Emergency Provider Emergency Medicine
DX: J18.9 Pneumonia, unspecified organism (principal); N39.0 Urinary tract infection, site not specified; R11.2 Nausea with vomiting, unspecified; J44.9 Chronic obstructive pulmonary disease, unspecified; K76.82 Hepatic encephalopathy; G89.4 Chronic pain syndrome; K21.9 Gastro-esophageal reflux disease without esophagitis; F17.210 Nicotine dependence, cigarettes, uncomplicated; Z86.19 Personal history of other infectious and parasitic diseases; Z87.11 Personal history of peptic ulcer disease; Z85.05 Personal history of malignant neoplasm of liver; Z92.3 Personal history of irradiation; Z90.49 Acquired absence of other specified parts of digestive tract; K74.60 Unspecified cirrhosis of liver; K76.6 Portal hypertension
CPT/HCPCS: 36415; 74177; 80053; 81001; 83690; 85025; 85055; 87077; 87086; 87186; 96361; 96365; 96375; 99284; J1630; J1953; J2270; J7030; Q9967

== ENCOUNTER 2022-10-03 00:50 | Emergency (ER) | payer MEDICARE, MEDICAID, SELFPAY ==
[2022-10-03] VITALS (29 sets, daily range): BP systolic 93–150; BP diastolic 54–72; PULSE 74–122; RESP 14–30; TEMP 36.4; O2SAT 91–99
--- NOTE | ~2022-10-03 | CT_ITS ---
EXAMINATION: CT brain wo con DATE: 10/03/2022 02:01 INDICATION: Seizure. TECHNIQUE: Computed tomography (CT) of the head was performed without intravenous contrast. The mA wa s adjusted according to patient size. Iterative reconstruction technique was employed. The dose-lengt h product was 681.00 mGy-cm. COMPARISON: Head CT 02/19/2022 FINDINGS: There are scattered areas of low attenuation in the cerebral white matter. There is no intr acranial hemorrhage, acute infarction, or abnormal intracranial mass lesion. The ventricles are meka l in size. There is mucosal thickening in the paranasal sinuses. There is thickening sclerosis of the howell of left maxillary sinus, consistent with chronic sinusitis. The mastoid air cells are normal. The orbits are normal. IMPRESSION: 1. Stable mild nonspecific cerebral white matter disease, which likely represents chronic small vesse l ischemic disease. 2. Chronic sinusitis. Reviewed, dictated and finalized at location E. IMPRESSION: 1. Stable mild nonspecific cerebral white matter disease, which likely represen ts chronic small vessel ischemic disease. 2. Chronic sinusitis.
[2022-10-03] MEDS: ONDANSETRON INJ 4 MG/2 ML VIAL IV PUSH (01:05)
[2022-10-03 01:17] LABS: Basophils Percent Auto 0.4 % (0.2-1.2); Eosinophils Percent Auto 0.6 % (0-4.4); Hematocrit 39.6 % (42.0-52.0); Hemoglobin 13.5 g/dL (14.0-18.0); Immature Granulocyte Absolute 0.03 K/mm3 (0.00-0.031); Immature Granulocyte Percent A 0.4 % (0-0.5); Lymphocytes Absolute Auto 1.19 K/mm3 (0.9-3.2); Lymphocytes Percent Auto 17.4 % (18.3-44.2); Mean Corpuscular HGB Conc 34.1 g/dl (32-36); Mean Corpuscular Hemoglobin 30.8 pg (26-34); Mean Corpuscular Volume 90.2 fl (80-100); Mean Platelet Volume 11.1 fl (7.4-10.4); Monocytes Absolute Auto 0.6 K/mm3 (0.1-0.6); Monocytes Percent Auto 8.9 % (2.6-8.5); Neutrophils Absolute Auto 4.9 K/mm3 (1.3-6.7); Neutrophils Percent Auto 72.3 % (45.5-73.1); Platelet Count Result 111 k/mm3 (150-375); Red Blood Count 4.39 M/mm3 (4.6-6.20); Red Cell Distribution Width 14.9 % (11.5-14.5); White Blood Count 6.8 K/mm3 (4.5-10.0)
--- NOTE | 2022-10-03 01:25 | ED.SEIZURE ---
HPI - Seizure General Chief Complaint: Seizure Stated Complaint: SZ, COMBATIVE Time Seen by Provider: 10/03/22 00:51 History of Present Illness HPI Narrative: 57-year-old male with history of seizures on Keppra but often not adherent to this therapy presents here after witnessed seizure by family at home. Per family/EMS report, only complaints recently was some liver pain Seizure History: Yes (narcotic and alcohol withdrawal) Related Data Home Medications Medication Instructions Recorded Confirmed omeprazole 40 mg capsule,delayed 40 mg PO DAILY 01/17/20 08/13/22 release calcium carbonate 600 mg-vitamin 1 cap PO BID 02/16/20 08/13/22 D3 5 mcg (200 unit) capsule (Calcium 600 + D(3)) gabapentin 800 mg tablet 800 mg PO QID 02/16/20 08/13/22 tenofovir disoproxil fumarate 300 300 mg PO DAILY 02/16/20 08/13/22 mg tablet budesonide-formoterol HFA 160 2 puff inhalation BID 08/26/20 08/13/22 mcg-4.5 mcg/actuation aerosol inhaler (Symbicort) ondansetron 8 mg disintegrating 8 mg translingual Q8H PRN Nausea 09/22/20 08/13/22 tablet albuterol sulfate 2.5 mg/3 mL 2.5 mg continuous nebulization PRN 09/23/20 08/13/22 (0.083 %) solution for nebulization albuterol sulfate 90 mcg/actuation 2 puff inhalation Q4-6H PRN 01/11/21 08/13/22 aerosol inhaler Shortness Of Breath Or Wheezing tamsulosin 0.4 mg capsule 0.4 mg PO DAILY 01/11/21 08/13/22 hydrocodone 5 mg-acetaminophen 325 1 tablet PO TID PRN Pain, Moderate 08/13/22 08/13/22 mg tablet lactulose 10 gram/15 mL oral 30 ml PO PRN PRN useasdirected 08/13/22 08/13/22 solution (Constulose) Allergies Allergy/AdvReac Type Severity Reaction Status Date / Time hornet venom Allergy Unknown Unknown Verified 09/06/22 04:30 strawberry Allergy Unknown Unknown Verified 09/06/22 04:30 ciprofloxacin Allergy Unknown Verified 09/06/22 04:30 fentanyl Allergy Unknown Verified 09/06/22 04:30 metronidazole AdvReac Unknown Nausea And Verified 09/06/22 04:30 Vomiting Review of Systems Review of Systems: ROS unobtainable: Yes unobtainable due to medical condition and unobtainable due to mental status PMFSH Past Medical History Medical History Alcohol abuse Most recent use 10/29/2020 Chronic pain syndrome Cirrhosis COPD (chronic obstructive pulmonary disease) GERD (gastroesophageal reflux disease) Hepatic encephalopathy Hepatocellular carcinoma radiation treatment Hepatocellular carcinoma History of hepatitis B Hx of peptic ulcer as a child Seizure Seizure Surgical History Surgical History History of cholecystectomy History of tibial fracture requiring surgical repair. Family History Family History Father Hypertension Cerebrovascular accident Myocardial infarct Sibling Hypertension Sibling Hypertension Father Hypertension Cerebrovascular accident Family history of coronary artery disease Sibling Hypertension Social History Social History Social History: Smokes 1/2 ppd since 17yo. He is trying to quit. Lives at home with his and children. He is a full code. The patient had 7 children. He is on disability. The patient continues to use marijuana gummies. He no longer uses cocaine or other illicit drugs. 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 Alcohol intake: never Alcohol use details: Alcohol use noted 10/29/2020 with etoh level of 24. Substance use: current Substance use ty
[2022-10-03] MEDS: LORazepam INJ (*CRX) 2 MG/ML VIAL IV PUSH (01:26)
--- NOTE | 2022-10-03 01:37 | PC.NURSE ---
[place] noises in patient room and RN's responded quickly to find patient seizing in room at 0120. EDP at bedside; VORB to administer 2 mg of Ativan. Patient responds well to Ativan, seizure stops, and patient remains postictal.
[2022-10-03 01:39] LABS: Alanine Aminotransferase 23 U/L (6-50); Albumin Level 4.4 g/dL (3.5-5.1); Alkaline Phosphatase 104 U/L (38-126); Anion Gap 11 mmol/L (8-16); Aspartate Amino Transferase 36 U/L (17-59); Bilirubin,Total 1.1 mg/dL (0.2-1.3); Blood Urea Nitrogen 11 mg/dL (9-20); Calcium 9.7 mg/dL (8.4-10.2); Carbon Dioxide 19 mmol/L (22-30); Chloride 105 mmol/L (98-107); Estimated CRCL calculation 64 ml/min; Estimated Glomerular Filt Rate > 60; Glucose 107 mg/dL (65-110); Potassium 3.6 mmol/L (3.4-5.0); Sodium 135 mmol/L (137-145)
[2022-10-03] MEDS: LORazepam INJ (*CRX) 2 MG/ML VIAL (01:49)
--- NOTE | 2022-10-03 07:13 | ECG_ITS ---
Measurements Intervals [place] Rate: 72 P: 78 [place]: 151 QRS: 46 QRSD: 97 T: 75 QT: 420 QTc: 463 Interpretive Statements SINUS RHYTHM WITH OCCASIONAL SUPRAVENTRICULAR PREMATURE COMPLEXES POSSIBLE LEFT ATRIAL ENLARGEMENT [-0.1mV P WAVE IN V1/V2] NONSPECIFIC ST CHANGES BASELINE ARTIFACT COMPARED TO ECG 07/20/2022 09:39:22 PROBABLY NO SIGNIFICANT CHANGE Electronically Signed On 10-03-2022 9:25:03 CDT by Michaela Jama M.D.
--- NOTE | 2022-10-03 07:19 | PC.NURSE ---
Assumed care of pt at this time from ETELVINA Cerda. Pt resting in bed awaiting xfr to daysi.
--- NOTE | 2022-10-03 08:42 | PC.NURSE ---
This RN called pts , Heather, notifying her of pt leaving facility.
== END 2022-10-03 08:32 | disposition short-term general hospital (02) ==
PROVIDERS: Emergency Provider Emergency Medicine; PCP Internal Medicine Gastroenterology
DX: G40.901 Epilepsy, unspecified, not intractable, with status epilepticus (principal); T42.6X6A Underdosing of other antiepileptic and sedative-hypnotic drugs, initial encounter; C22.0 Liver cell carcinoma; J44.9 Chronic obstructive pulmonary disease, unspecified; K74.60 Unspecified cirrhosis of liver; K76.82 Hepatic encephalopathy; K21.9 Gastro-esophageal reflux disease without esophagitis; G89.4 Chronic pain syndrome; Z87.11 Personal history of peptic ulcer disease; Z90.49 Acquired absence of other specified parts of digestive tract; F17.210 Nicotine dependence, cigarettes, uncomplicated; J32.9 Chronic sinusitis, unspecified; R90.82 White matter disease, unspecified
CPT/HCPCS: 36415; 70450; 80053; 85025; 93005; 96365; 96375; 96376; 99285; J1953; J2060; J2405

== ENCOUNTER 2023-02-08 17:44 | Emergency (ER) | payer MEDICARE, MEDICAID, SELFPAY ==
[2023-02-08] VITALS (17 sets, daily range): BP systolic 133–144; BP diastolic 71–87; PULSE 69–90; RESP 10–20; TEMP 36.6; O2SAT 97–100
--- NOTE | ~2023-02-08 | CT_ITS ---
EXAMINATION: CTA chest abdomen pelvis DATE: 02/08/2023 19:50 INDICATION: Chest and abdominal pain. Seizure. TECHNIQUE: Computed tomographic angiography (CTA) of the chest, abdomen and pelvis was performed with 100 cc of Omnipaque-350 intravenous contrast. Additional 3D reconstructions utilizing rotating maxim um intensity projection (MIP) were performed. Automated exposure control and iterative reconstruction technique were employed. The dose-length product was 336.51 mGy-cm. COMPARISON: CT abdomen pelvis dated 09/16/[address] angiogram of the chest, abdomen and pelvis dated 04/23/2019 FINDINGS: Chest: Moderate emphysema with bandlike atelectasis/scarring in the bilateral upper lobes. Mucous plugging w ith groundglass opacities and a few centrilobular nodules in the basilar left lower lobe consistent w ith pneumonia. No pulmonary edema or pleural effusion. Heart size is normal. Atherosclerotic coronary artery calcifications. No pericardial effusion. Thoracic aorta is normal in caliber with no dissecti on. No pathologically enlarged thoracic lymphadenopathy. There are multiple paraesophageal varices at the distal esophagus. Schmorl's node along the superior endplate of T6. Abdomen and pelvis: Nodular cirrhotic liver. There is mild intrahepatic biliary ductal dilation in the lateral segment of the left hepatic lobe. A previously seen mass concerning for malignancy in the left hepatic lobe at the site of origin of the biliary duct dilation is less clearly visualized in the current study likel y due to the earlier phase of contrast. Cholecystectomy clips the gallbladder fossa. Splenomegaly whi ch along with the previous noted paraesophageal varices consistent with portal venous hypertension se condary to cirrhosis. Pancreas, bilateral adrenal glands and kidneys are normal. No dilated loops of bowel. Normal appendix. Bladder is normal. Prostatomegaly. No free intraperitoneal gas or fluid. No p athologically enlarged abdominal or pelvic lymphadenopathy. Abdominal aorta is normal in caliber with no dissection. Severe lumbar spondylosis. IMPRESSION: 1. Normal caliber aorta with no aneurysm or dissection. 2. Emphysema with left lower lobe pneumonia. 3. Cirrhosis with portal venous hypertension including splenomegaly and multiple paraesophageal varic es. 4. Intrahepatic biliary ductal dilation in the left hepatic lobe. A previously noted mass at the left hepatic lobe/luiza hepatis concerning for malignancy is not well appreciated in the current study wh ich could be due to the earlier phase of contrast. Reviewed, dictated and finalized at location A. IMEDIA PRODUCER IMPRESSION: 1. Normal caliber aorta with no aneurysm or dissection. 2. Emphysema with left lower lobe pneumonia. 3. Cirrhosis with portal venous hypertension including splenomegaly and multipl e paraesophageal varices. 4. Intrahepatic biliary ductal dilation in the left hepatic lobe. A previously noted mass at the left hepatic lobe/luiza hepatis concerning for malignancy is not well appreciated in the current study which could be due to the earlier pha se of contrast.
--- NOTE | ~2023-02-08 | CT_ITS ---
EXAMINATION: CT brain wo con DATE: 02/08/2023 19:50 INDICATION: Seizure TECHNIQUE: Computed tomography (CT) of the head was performed without intravenous contrast. Sagittal and coronal reconstructions were performed. The mA was adjusted according to patient size. Iterative reconstruction technique was employed. The dose-length product was 605.33 mGy-cm. COMPARISON: head CT dated 10/03/2022 FINDINGS: No acute intracranial hemorrhage, acute infarction or abnormal extra axial fluid collection. There is mild scattered white matter hypoattenuation consistent with chronic small vessel ischemic disease. Ventricles are normal and symmetric. No mass/mass effect. Diffuse sinus disease with progression of m oderate mucosal thickening in the left ethmoid, right sphenoid and bilateral maxillary sinuses. The o rbits and mastoid air cells are normal. IMPRESSION: 1. No acute intracranial process. 2. Unchanged mild scattered white matter hypoattenuation consistent with chronic small vessel ischemi c disease. 2. Progression of chronic sinusitis. Reviewed, dictated and finalized at location A. DESIGNER IMPRESSION: 1. No acute intracranial process. 2. Unchanged mild scattered white matter hypoattenuation consistent with chroni c small vessel ischemic disease. 2. Progression of chronic sinusitis.
--- NOTE | 2023-02-08 17:49 | ED.SEIZURE ---
HPI - Seizure General Chief Complaint: Seizure Stated Complaint: SZ Time Seen by Provider: 02/08/23 17:48 History of Present Illness HPI Narrative: Patient is a 57-year-old male with history of hepatic cirrhosis, seizure here with a seizure. He states that he was sitting in his recliner watching TV in the next thing he remembers is he was here in the emergency department. He reportedly had a seizure witnessed by family. They are not at bedside however, this was communicated to us by EMS. He notes he is adherent to his Keppra, takes 1000 mg b.i.d.. He notes his last seizure was the last time he was hospitalized this summer. Denies any fever chills. He does note some chronic abdominal pain and chest pain which are currently present. Denies any prior cardiac history. He does note that this abdominal pain is usually due to his hepatic cirrhosis. Seizure History: Yes (narcotic and alcohol withdrawal) Related Data Home Medications Medication Instructions Recorded Confirmed omeprazole 40 mg capsule,delayed 40 mg PO DAILY 01/17/20 08/13/22 release calcium carbonate 600 mg-vitamin 1 cap PO BID 02/16/20 08/13/22 D3 5 mcg (200 unit) capsule (Calcium 600 + D(3)) gabapentin 800 mg tablet 800 mg PO QID 02/16/20 08/13/22 tenofovir disoproxil fumarate 300 300 mg PO DAILY 02/16/20 08/13/22 mg tablet budesonide-formoterol HFA 160 2 puff inhalation BID 08/26/20 08/13/22 mcg-4.5 mcg/actuation aerosol inhaler (Symbicort) ondansetron 8 mg disintegrating 8 mg translingual Q8H PRN Nausea 09/22/20 08/13/22 tablet albuterol sulfate 2.5 mg/3 mL 2.5 mg continuous nebulization PRN 09/23/20 08/13/22 (0.083 %) solution for nebulization albuterol sulfate 90 mcg/actuation 2 puff inhalation Q4-6H PRN 01/11/21 08/13/22 aerosol inhaler Shortness Of Breath Or Wheezing tamsulosin 0.4 mg capsule 0.4 mg PO DAILY 01/11/21 08/13/22 hydrocodone 5 mg-acetaminophen 325 1 tablet PO TID PRN Pain, Moderate 08/13/22 08/13/22 mg tablet lactulose 10 gram/15 mL oral 30 ml PO PRN PRN useasdirected 08/13/22 08/13/22 solution (Constulose) Allergies Allergy/AdvReac Type Severity Reaction Status Date / Time hornet venom Allergy Unknown Unknown Verified 09/06/22 04:30 strawberry Allergy Unknown Unknown Verified 09/06/22 04:30 ciprofloxacin Allergy Unknown Verified 09/06/22 04:30 fentanyl Allergy Unknown Verified 09/06/22 04:30 metronidazole AdvReac Unknown Nausea And Verified 09/06/22 04:30 Vomiting Review of Systems Review of Systems: All systems reviewed & are unremarkable except as noted in HPI and below PMFSH Past Medical History Medical History Alcohol abuse Most recent use 10/29/2020 Chronic pain syndrome Cirrhosis COPD (chronic obstructive pulmonary disease) GERD (gastroesophageal reflux disease) Hepatic encephalopathy Hepatocellular carcinoma radiation treatment Hepatocellular carcinoma History of hepatitis B Hx of peptic ulcer as a child Seizure Seizure Surgical History Surgical History History of cholecystectomy History of tibial fracture requiring surgical repair. Family History Family History Father Hypertension Cerebrovascular accident Myocardial infarct Sibling Hypertension Sibling Hypertension Father Hypertension Cerebrovascular accident Family history of coronary artery disease Sibling Hypertension Social History Social History Social History: Smokes 1/2 ppd since 17yo. He is trying to quit. Lives at home with his and children. He is a full code. The patient had 7 children. He is on disability. The patient continues to use marijuana gummies. He no longer uses cocaine or other illicit drugs. 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
--- NOTE | 2023-02-08 17:58 | ECG_ITS ---
Measurements Intervals [place] Rate: 70 P: 76 [place]: 142 QRS: 53 QRSD: 89 T: 75 QT: 404 QTc: 438 Interpretive Statements SINUS RHYTHM WITH SINUS ARRHYTHMIA ABNORMAL ECG COMPARED TO ECG 10/03/2022 00:55:27 SINUS ARRHYTHMIA NOW PRESENT Electronically Signed On 02-09-2023 16:53:14 CLAY DRY PRESS OPERATOR by Mor Reno M.D.
[2023-02-08] MEDS: SODIUM CHLORIDE 0.9% IV 1,000 ML 999 ML IV CONT (18:15)
[2023-02-08] MEDS: levETIRAcetam 1000MG/NACL100ML 1,000 MG/100 ML BAG 400 MG IVPB ×3 (18:16→19:20)
[2023-02-08 18:57] LABS: Basophils Percent Auto 0.3 % (0.2-1.2); Eosinophils Absolute Auto 0.1 K/mm3 (0-0.3); Eosinophils Percent Auto 1.2 % (0-4.4); Hemoglobin 12.3 g/dL (14.0-18.0); Immature Granulocyte Absolute 0.01 K/mm3 (0.00-0.031); Immature Granulocyte Percent A 0.2 % (0-0.5); Immature Platelet Fraction Pct 6.9 % (0.9-11.2); Lymphocytes Absolute Auto 0.55 K/mm3 (0.9-3.2); Lymphocytes Percent Auto 8.4 % (18.3-44.2); Mean Corpuscular HGB Conc 33.2 g/dl (32-36); Mean Corpuscular Hemoglobin 30.5 pg (26-34); Mean Corpuscular Volume 91.8 fl (80-100); Mean Platelet Volume 11.2 fl (7.4-10.4); Monocytes Absolute Auto 0.4 K/mm3 (0.1-0.6); Monocytes Percent Auto 6.5 % (2.6-8.5); Neutrophils Absolute Auto 5.5 K/mm3 (1.3-6.7); Neutrophils Percent Auto 83.4 % (45.5-73.1); Platelet Count Result 86 k/mm3 (150-375); Red Blood Count 4.03 M/mm3 (4.6-6.20); Red Cell Distribution Width 14.6 % (11.5-14.5); White Blood Count 6.6 K/mm3 (4.5-10.0)
[2023-02-08 19:07] LABS: Ethanol < 10 mg/dL (<10)
[2023-02-08 19:08] LABS: Alanine Aminotransferase 28 U/L (6-50); Alkaline Phosphatase 142 U/L (38-126); Anion Gap 7 mmol/L (8-16); Aspartate Amino Transferase 34 U/L (17-59); Bilirubin,Total 0.7 mg/dL (0.2-1.3); Blood Urea Nitrogen 5 mg/dL (9-20); Calcium 9.4 mg/dL (8.4-10.2); Carbon Dioxide 23 mmol/L (22-30); Chloride 107 mmol/L (98-107); Estimated CRCL calculation 71 ml/min; Estimated Glomerular Filt Rate > 60; Glucose 112 mg/dL (65-110); Lipase 33 U/L (23-300); Magnesium 1.9 mg/dL (1.6-2.3); Potassium 3.5 mmol/L (3.4-5.0); Sodium 137 mmol/L (137-145)
[2023-02-08 19:20] LABS: Troponin I < 0.012 ng/mL (0.000-0.034)
--- NOTE | 2023-02-08 20:03 | PC.NURSE ---
Addendum entered by Brissa Suarez RN 02/08/23 20:04: Ice pack provided for chest where he reports pain/redness from sternal rub. Original Note: Pt ambulatory to restroom with steady gait for BM.
--- NOTE | 2023-02-08 20:52 | ECG_ITS ---
Measurements Intervals [place] Rate: 74 P: 74 [place]: 134 QRS: 59 QRSD: 89 T: 74 QT: 398 QTc: 443 Interpretive Statements SINUS RHYTHM NORMAL ECG COMPARED TO ECG 02/08/2023 19:02:23 NO SIGNIFICANT CHANGES Electronically Signed On 02-09-2023 16:55:02 CIVIL SERVICE CLERK by Mor Reno M.D.
[2023-02-08] MEDS: KETOROLAC 15 MG/ML VIAL (*BKC) IV PUSH (20:59)
[2023-02-08] MEDS: ONDANSETRON INJ 4 MG/2 ML VIAL IV PUSH (20:59)
[2023-02-08] MEDS: LACTATED RINGERS 1,000 ML 999 ML IV CONT (21:06)
[2023-02-08 21:12] LABS: Troponin I < 0.012 ng/mL (0.000-0.034)
[2023-02-08] MEDS: AMOXICILLIN/CLAVULANATE K 875-125 MG TAB 1 TABLET PO (21:40)
[2023-02-08] MEDS: DOXYCYCLINE HYCLATE 100 MG TABLET PO (21:40)
== END 2023-02-08 21:47 | disposition home or self-care (01) ==
PROVIDERS: Emergency Provider Student in an Organized Health Care Education/Training Program; PCP Internal Medicine Gastroenterology
DX: G40.909 Epilepsy, unspecified, not intractable, without status epilepticus (principal); R07.89 Other chest pain; J18.9 Pneumonia, unspecified organism; R51.9 Headache, unspecified; J44.9 Chronic obstructive pulmonary disease, unspecified; F17.210 Nicotine dependence, cigarettes, uncomplicated; Z79.899 Other long term (current) drug therapy
CPT/HCPCS: 36415; 70450; 71275; 74174; 80053; 80177; 80307; 83690; 83735; 84484; 85025; 85055; 93005; 96365; 96366; 96375; 99284; A9270; J1885; J1953; J2405; J7030; J7120; Q9967

== ENCOUNTER 2023-02-15 18:55 | Emergency (ER) | payer MEDICARE, MEDICAID, SELFPAY ==
[2023-02-15 19:06] VITALS: BP 136/90; PULSE 88; RESP 20; TEMP 37.1; O2SAT 98
[2023-02-15 19:12] VITALS: BP 136/90; PULSE 88; RESP 20; TEMP 37.1; O2SAT 98
--- NOTE | 2023-02-15 19:15 | ED.GENADULT ---
HPI - General Adult General Chief complaint: Nausea/Vomiting/Diarrhea Stated complaint: Nausea;Diarrhea Time Seen by Provider: 02/15/23 19:10 Source: patient, family, RN notes reviewed and old records reviewed Mode of arrival: ambulatory Limitations: no limitations History of Present Illness HPI narrative: 57 year old male accompanied by presents to express care with complaints of patient having diarrhea this morning and then he has had vomiting 4 times this afternoon. Patient moaning and also stating that he has some right upper abdominal quadrant pain that states liver always starts hurting when he vomits. reports that patient has cirrhosis of the liver, hepatitis B,seizure disorder, has had liver cancer in the past states that patient just completed an antibiotic for pneumonia. Patient did have history of alcohol/drug abuse in past uses marijuana still. Patient does also have history of COPD and continues to smoke daily. MD complaint: nausea, vomiting and diarrhea, right upper abdominal pain Onset (ago): day(s) (symptoms today) Location: abdomen (right upper 4/10) Severity scale (1-10): 4 Quality: aching Treatments prior to arrival: other (took Zofran this morning ) Related Data Home Medications Medication Instructions Recorded Confirmed gabapentin 800 mg tablet 800 mg PO QID 02/16/20 02/15/23 tenofovir disoproxil fumarate 300 300 mg PO DAILY 02/16/20 02/15/23 mg tablet albuterol sulfate 90 mcg/actuation 2 puff inhalation Q4-6H PRN 01/11/21 02/15/23 aerosol inhaler Shortness Of Breath Or Wheezing tamsulosin 0.4 mg capsule 0.4 mg PO DAILY 01/11/21 02/15/23 hydrocodone 5 mg-acetaminophen 325 1 tablet PO TID PRN Pain, Moderate 08/13/22 02/15/23 mg tablet budesonide-formoterol HFA 160 2 puff inhalation DAILY 02/15/23 02/15/23 mcg-4.5 mcg/actuation aerosol inhaler (Symbicort) fluticasone furoate 200 1 inh inhalation DAILY 02/15/23 02/15/23 mcg-vilanterol 25 mcg/dose inhalation powder (Breo Ellipta) Allergies Allergy/AdvReac Type Severity Reaction Status Date / Time hornet venom Allergy Unknown Unknown Verified 02/15/23 20:13 strawberry Allergy Unknown Unknown Verified 02/15/23 20:13 ciprofloxacin Allergy Unknown Verified 02/15/23 20:13 fentanyl Allergy Unknown Verified 02/15/23 20:13 metronidazole AdvReac Unknown Nausea And Verified 02/15/23 20:13 Vomiting Review of Systems Review of Systems: CONSTITUTIONAL: Denies fever, chills, or sweats presently EYES: Denies visual changes, redness, or discharge. ENT: Denies rhinorrhea, congestion, sore throat, or otalgia. CARDIOVASCULAR: Denies chest pain, palpitations, or edema. RESPIRATORY: Reports cough or dyspnea. GASTROINTESTINAL: right upper abdominal pain.positive for nausea, vomiting, or diarrhea. GENITOURINARY: Denies dysuria or hematuria. SKIN: Denies rash or itching. MUSCULOSKELETAL: Denies back pain, joint pain, or myalgia. NEUROLOGIC: Denies headache, numbness, or weakness. PSYCHIATRIC: Denies anxiety or depression. All systems reviewed & are unremarkable except as noted in HPI and below PMFSH Past Medical History Medical History Alcohol abuse Most recent use 10/29/2020 Chronic pain syndrome Cirrhosis COPD (chronic obstructive pulmonary disease) GERD (gastroesophageal reflux disease) Hepatic encephalopathy Hepatocellular carcinoma radiation treatment Hepatocellular carcinoma History of hepatitis B Hx of peptic ulcer as a child Seizure Seizure Surgical History Surgical History History of cholecystectomy History of tibial fracture requiring surgical repair. Family History Family History Father Hypertension Cerebrovascular accident Myocardial infarct Sibling Hypertension Sibling Hypertension Father Hypertension Cerebrovascular acciden
[2023-02-15] MEDS: ONDANSETRON HCL ODT 4 MG TABLET SUBLINGUAL (19:22)
== END 2023-02-15 19:32 | disposition short-term general hospital (02) ==
LOC: EXPGOSH 18:59
PROVIDERS: Emergency Provider Registered Nurse
DX: R11.2 Nausea with vomiting, unspecified (principal); R10.11 Right upper quadrant pain; F17.210 Nicotine dependence, cigarettes, uncomplicated; Z79.899 Other long term (current) drug therapy; Z79.891 Long term (current) use of opiate analgesic
CPT/HCPCS: 99213; 99215; A9270; G0463

== ENCOUNTER 2023-02-15 19:54 | Emergency (ER) | payer MEDICARE, MEDICAID, SELFPAY ==
--- NOTE | ~2023-02-15 | CT_ITS ---
EXAMINATION: CT BRAIN W/O DATE: 02/15/2023 22:09 INDICATION: Seizure TECHNIQUE: Computed tomography (CT) of the head was performed without intravenous contrast. The dose- length product was 605.33 mGy-cm. Automated exposure control and iterative reconstruction technique w ere employed. COMPARISON: CT dated 02/08/2023 FINDINGS: Study limited by motion artifact. Normal brain parenchymal volume for age. Normal beasley-whit e differentiation. No acute intracranial hemorrhage, infarction, mass or mass effect. There are scatt ered mild periventricular and subcortical white matter changes, most likely related to small vessel i schemic disease (microangiopathy). Mild intracranial atherosclerosis. No ventriculomegaly or midline shift. Midline sagittal images demonstrate a normal corpus callosum, c raniovertebral junction and sella turcica. Basilar cisterns are patent. There is mild mucosal thickening of the maxillary and ethmoid sinuses. IMPRESSION: 1. No acute intracranial abnormality. Reviewed, dictated and finalized at location A. ACTER ACTOR
--- NOTE | ~2023-02-15 | CT_ITS ---
EXAMINATION: CT abdomen pelvis w con DATE: 02/15/2023 22:17 INDICATION: Nausea, vomiting. Seizure. TECHNIQUE: Computed tomography (CT) of the abdomen and pelvis was performed with 100 cc Omnipaque 350 intravenous contrast. The dose-length product was 290.52 mGy-cm. Automated exposure control and iter ative reconstruction technique were employed. COMPARISON: None. FINDINGS: There is a pleural-based left lower lobe nodule measuring 1.2 cm. There are clustered nodul es in the left lower lobe posteriorly, largest measuring 7 mm. Heart size is normal. There is cirrhos is of the liver with splenomegaly and collateral vessels, consistent with portal hypertension. Status post cholecystectomy. Enlarged prostate gland. Nonobstructive bowel gas pattern. There are multiple collateral vessels in the paraesophageal location. There is intrahepatic biliary dilatation of the le ft hepatic lobe. There is disc narrowing and endplate degenerative change at L4-5. No acute osseous a bnormality. There is mild scoliosis. The pancreas, adrenal glands and kidneys are unremarkable. IMPRESSION: 1. Cirrhosis with portal hypertension. Splenomegaly. 2: Enlarged prostate gland. 3: Left lower lobe nodules, largest measuring 1.2 cm. These may be infectious/inflammatory, although malignancy not excluded. Reviewed, dictated and finalized at location A. KETTLE TENDER IMPRESSION: 1. Cirrhosis with portal hypertension. Splenomegaly. 2: Enlarged prostate gland. 3: Left lower lobe nodules, largest measuring 1.2 cm. These may be infectious/ inflammatory, although malignancy not excluded.
[2023-02-15 20:05] VITALS: BP 149/85; PULSE 80; RESP 16; TEMP 36.9; O2SAT 100
[2023-02-15] MEDS: ONDANSETRON INJ 4 MG/2 ML VIAL IV PUSH (20:32)
[2023-02-15] MEDS: SODIUM CHLORIDE 0.9% IV 1,000 ML 999 ML IV CONT (20:33)
[2023-02-15 20:43] LABS: Basophils Percent Auto 0.5 % (0.2-1.2); Hematocrit 35.7 % (42.0-52.0); Hemoglobin 12.2 g/dL (14.0-18.0); Immature Granulocyte Absolute 0.01 K/mm3 (0.00-0.031); Immature Granulocyte Percent A 0.2 % (0-0.5); Immature Platelet Fraction Pct 6.6 % (0.9-11.2); Lymphocytes Percent Auto 8.6 % (18.3-44.2); Mean Corpuscular HGB Conc 34.2 g/dl (32-36); Mean Corpuscular Hemoglobin 30.8 pg (26-34); Mean Corpuscular Volume 90.2 fl (80-100); Mean Platelet Volume 10.4 fl (7.4-10.4); Monocytes Absolute Auto 0.3 K/mm3 (0.1-0.6); Monocytes Percent Auto 5.5 % (2.6-8.5); Neutrophils Percent Auto 85.2 % (45.5-73.1); Platelet Count Result 103 k/mm3 (150-375); Red Blood Count 3.96 M/mm3 (4.6-6.20); Red Cell Distribution Width 14.6 % (11.5-14.5); White Blood Count 5.8 K/mm3 (4.5-10.0)
[2023-02-15] MEDS: MORPHINE SULFATE (*CRX) 2 MG/ML INJ IV PUSH (21:02)
[2023-02-15] MEDS: PANTOPRAZOLE SODIUM IV 40 MG VIAL 80 MG IV PUSH (21:03)
[2023-02-15] MEDS: levETIRAcetam 1000MG/NACL100ML 1,000 MG/100 ML BAG 400 MG IVPB (21:07)
--- NOTE | 2023-02-15 21:17 | ED.GENADULT ---
HPI - General Adult General Chief complaint: Nausea/Vomiting/Diarrhea <Laney Sutton MD - Last Filed: 02/15/23 22:01> Stated complaint: N/V/D ALL DAY <Laney Sutton MD - Last Filed: 02/15/23 22:01> Time Seen by Provider: 02/15/23 20:07 <Laney Sutton MD - Last Filed: 02/15/23 22:01> History of Present Illness HPI narrative: Pt presents to the ER with persistent nausea and vomiting. he was brought to the emergency department from urgent care. His attributes most of the history. Patient will not communicate other than moaning intermittently between episodes of sleeping. He has a history of chronic pain syndrome alcohol and narcotic abuse as well as alcohol withdrawal seizures. Patient is also on Keppra twice a day though. His states that he was recently admitted to the hospital here for pneumonia. Discharged home and finish his antibiotic yesterday. Today started with diarrhea. Was sent to Urgent Care and transferred to the emergency department for further evaluation. They told the they were concerned about possible pancreatitis. is worried because she states that his seizures normally start with nausea and vomiting. Patient has not had a seizure today.. <Laney Sutton MD - Last Filed: 02/15/23 22:01> Related Data Home medications: Home Medications Medication Instructions Recorded Confirmed gabapentin 800 mg tablet 800 mg PO QID 02/16/20 02/15/23 tenofovir disoproxil fumarate 300 300 mg PO DAILY 02/16/20 02/15/23 mg tablet albuterol sulfate 90 mcg/actuation 2 puff inhalation Q4-6H PRN 01/11/21 02/15/23 aerosol inhaler Shortness Of Breath Or Wheezing tamsulosin 0.4 mg capsule 0.4 mg PO DAILY 01/11/21 02/15/23 hydrocodone 5 mg-acetaminophen 325 1 tablet PO TID PRN Pain, Moderate 08/13/22 02/15/23 mg tablet budesonide-formoterol HFA 160 2 puff inhalation DAILY 02/15/23 02/15/23 mcg-4.5 mcg/actuation aerosol inhaler (Symbicort) fluticasone furoate 200 1 inh inhalation DAILY 02/15/23 02/15/23 mcg-vilanterol 25 mcg/dose inhalation powder (Breo Ellipta) <Laney Sutton MD - Last Filed: 02/15/23 22:01> Allergies/adverse reactions: Allergies Allergy/AdvReac Type Severity Reaction Status Date / Time hornet venom Allergy Unknown Unknown Verified 02/15/23 20:13 strawberry Allergy Unknown Unknown Verified 02/15/23 20:13 ciprofloxacin Allergy Unknown Verified 02/15/23 20:13 fentanyl Allergy Unknown Verified 02/15/23 20:13 metronidazole AdvReac Unknown Nausea And Verified 02/15/23 20:13 Vomiting <Laney Sutton MD - Last Filed: 02/15/23 22:01> Review of Systems Review of Systems: Review of systems negative except for what is documented in the hpi <Laney Sutton MD - Last Filed: 02/15/23 22:01> [facility] Past Medical History Medical History: Medical History Alcohol abuse Most recent use 10/29/2020 Chronic pain syndrome Cirrhosis COPD (chronic obstructive pulmonary disease) GERD (gastroesophageal reflux disease) Hepatic encephalopathy Hepatocellular carcinoma radiation treatment Hepatocellular carcinoma History of hepatitis B Hx of peptic ulcer as a child Seizure Seizure <Laney Sutton MD - Last Filed: 02/15/23 22:01> Surgical History Surgical History: Surgical History History of cholecystectomy History of tibial fracture requiring surgical repair. <Laney Sutton MD - Last Filed: 02/15/23 22:01> Family History Family History: Family History Father Hypertension Cerebrovascular accident Myocardial infarct Sibling Hypertension Sibling Hypertension Father Hypertension Cerebrovascular accident Family history of coronary artery disease Sibling Hypertension <Laney Sutton MD - Last Gentry
[2023-02-15 21:25] LABS: Ethanol < 10 mg/dL (<10)
[2023-02-15 21:26] LABS: Alanine Aminotransferase 30 U/L (6-50); Albumin Level 4.1 g/dL (3.5-5.1); Alkaline Phosphatase 128 U/L (38-126); Anion Gap 9 mmol/L (8-16); Aspartate Amino Transferase 42 U/L (17-59); Bilirubin,Total 0.7 mg/dL (0.2-1.3); Blood Urea Nitrogen 12 mg/dL (9-20); Calcium 9.8 mg/dL (8.4-10.2); Carbon Dioxide 23 mmol/L (22-30); Chloride 107 mmol/L (98-107); Estimated CRCL calculation 52 ml/min; Estimated Glomerular Filt Rate > 60; Glucose 118 mg/dL (65-110); Lipase 68 U/L (23-300); Potassium 3.6 mmol/L (3.4-5.0); Sodium 139 mmol/L (137-145)
[2023-02-15] MEDS: diphenhydrAMINE HCl INJ 50 MG/ML VIAL 25 MG IV PUSH (21:27)
[2023-02-15] MEDS: METOCLOPRAMIDE HCL INJ 10 MG/2 ML VIAL IV PUSH (21:27)
[2023-02-15 21:55] VITALS: BP 162/78; PULSE 92; RESP 16
[2023-02-15 23:34] VITALS: BP 142/76; PULSE 82; RESP 18; O2SAT 99
== END 2023-02-15 23:34 | disposition home or self-care (01) ==
PROVIDERS: Emergency Medicine; Emergency Provider Emergency Medicine
DX: R10.9 Unspecified abdominal pain (principal); R11.2 Nausea with vomiting, unspecified; R91.1 Solitary pulmonary nodule; F17.210 Nicotine dependence, cigarettes, uncomplicated; J44.9 Chronic obstructive pulmonary disease, unspecified; K21.9 Gastro-esophageal reflux disease without esophagitis; G40.909 Epilepsy, unspecified, not intractable, without status epilepticus
CPT/HCPCS: 36415; 70450; 74177; 80053; 80307; 83690; 85025; 85055; 96361; 96365; 96375; 99284; A9270; C9113; J1200; J1953; J2270; J2405; J2765; J7030; Q9967

== ENCOUNTER 2023-05-14 15:14 | Emergency (ER) | payer MEDICARE, MEDICAID, SELFPAY ==
[2023-05-14] VITALS (11 sets, daily range): BP systolic 107–150; BP diastolic 54–74; PULSE 68–102; RESP 18–20; TEMP 36.8; O2SAT 77–100
--- NOTE | ~2023-05-14 | CT_ITS ---
EXAMINATION: CT brain wo con DATE: 05/14/2023 16:05 INDICATION: Seizure. TECHNIQUE: Computed tomography (CT) of the head was performed without intravenous contrast. The mA wa s adjusted according to patient size. Iterative reconstruction technique was employed. The dose-lengt h product was 1059.33 mGy-cm. COMPARISON: Head CT 02/15/2023 FINDINGS: There is no intracranial hemorrhage, acute infarction, or abnormal intracranial mass lesion . There are scattered areas of low attenuation in the cerebral white matter, which is within normal l imits for the patient's age. The ventricles are normal in size. There is mild mucosal thickening in t he ethmoid sinuses. The mastoid air cells are normal. IMPRESSION: 1. Normal aging brain. Reviewed, dictated and finalized at location A. IMPRESSION: 1. Normal aging brain.
--- NOTE | 2023-05-14 15:23 | ED.SEIZURE ---
HPI - Seizure General Chief Complaint: Seizure Stated Complaint: Seizure Time Seen by Provider: 05/14/23 15:18 History of Present Illness HPI Narrative: Patient brought here by ambulance with seizure, history of seizures, on Keppra. a did initially get a blood sugar of 30, gave the patient glucagon with improvement. Does seemed confused but response to pain. Seizure History: Yes (narcotic and alcohol withdrawal) Related Data Home Medications Medication Instructions Recorded Confirmed gabapentin 800 mg tablet 800 mg PO QID 02/16/20 02/15/23 tenofovir disoproxil fumarate 300 300 mg PO DAILY 02/16/20 02/15/23 mg tablet albuterol sulfate 90 mcg/actuation 2 puff inhalation Q4-6H PRN 01/11/21 02/15/23 aerosol inhaler Shortness Of Breath Or Wheezing tamsulosin 0.4 mg capsule 0.4 mg PO DAILY 01/11/21 02/15/23 hydrocodone 5 mg-acetaminophen 325 1 tablet PO TID PRN Pain, Moderate 08/13/22 02/15/23 mg tablet budesonide-formoterol HFA 160 2 puff inhalation DAILY 02/15/23 02/15/23 mcg-4.5 mcg/actuation aerosol inhaler (Symbicort) fluticasone furoate 200 1 inh inhalation DAILY 02/15/23 02/15/23 mcg-vilanterol 25 mcg/dose inhalation powder (Breo Ellipta) Allergies Allergy/AdvReac Type Severity Reaction Status Date / Time hornet venom Allergy Unknown Unknown Verified 02/15/23 20:13 strawberry Allergy Unknown Unknown Verified 02/15/23 20:13 ciprofloxacin Allergy Unknown Verified 02/15/23 20:13 fentanyl Allergy Unknown Verified 02/15/23 20:13 metronidazole AdvReac Unknown Nausea And Verified 02/15/23 20:13 Vomiting Review of Systems Review of Systems: ROS unobtainable: Yes unobtainable due to mental status PMFSH Past Medical History Medical History Alcohol abuse Most recent use 10/29/2020 Chronic pain syndrome Cirrhosis COPD (chronic obstructive pulmonary disease) GERD (gastroesophageal reflux disease) Hepatic encephalopathy Hepatocellular carcinoma radiation treatment Hepatocellular carcinoma History of hepatitis B Hx of peptic ulcer as a child Seizure Seizure Surgical History Surgical History History of cholecystectomy History of tibial fracture requiring surgical repair. Family History Family History Father Hypertension Cerebrovascular accident Myocardial infarct Sibling Hypertension Sibling Hypertension Father Hypertension Cerebrovascular accident Family history of coronary artery disease Sibling Hypertension Social History Social History Social History: Smokes 1/2 ppd since 17yo. He is trying to quit. Lives at home with his and children. He is a full code. The patient had 7 children. He is on disability. The patient continues to use marijuana gummies. He no longer uses cocaine or other illicit drugs. 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 Alcohol intake: never Alcohol use details: Alcohol use noted 10/29/2020 with etoh level of 24. Substance use: current Substance use type: marijuana Other substance usage details: has not had alcohol in 16 years/ was never a heavy drinker per Last use: no meth/cocaine in 16 years/uses marijuana currently for pain/appetite Lack of Transportation: YES Lack of Food: Sometimes True Current Housing: I Have Housing Concerned About Future Housing: YES Difficulty Paying Gas/Electric Bills: YES Difficulty Paying for Meds: YES
--- NOTE | 2023-05-14 15:25 | ECG_ITS ---
Measurements Intervals [place] Rate: 75 P: 81 TX: 124 QRS: 61 QRSD: 88 T: 76 QT: 403 QTc: 452 Interpretive Statements SINUS RHYTHM NORMAL ECG COMPARED TO ECG 02/08/2023 20:54:24 NO SIGNIFICANT CHANGES Electronically Signed On 05-14-2023 15:58:31 CDT by Davidson Juarez D.O.
[2023-05-14 15:31] LABS: Basophils Percent Auto 0.3 % (0.2-1.2); Eosinophils Percent Auto 0.5 % (0-4.4); Hematocrit 38.5 % (42.0-52.0); Hemoglobin 12.5 g/dL (14.0-18.0); Immature Granulocyte Absolute 0.04 K/mm3 (0.00-0.031); Immature Granulocyte Percent A 0.5 % (0-0.5); Lymphocytes Absolute Auto 0.75 K/mm3 (0.9-3.2); Lymphocytes Percent Auto 8.5 % (18.3-44.2); Mean Corpuscular HGB Conc 32.5 g/dl (32-36); Mean Corpuscular Hemoglobin 31.1 pg (26-34); Mean Corpuscular Volume 95.8 fl (80-100); Monocytes Absolute Auto 0.3 K/mm3 (0.1-0.6); Monocytes Percent Auto 3.5 % (2.6-8.5); Neutrophils Absolute Auto 7.7 K/mm3 (1.3-6.7); Neutrophils Percent Auto 86.7 % (45.5-73.1); Platelet Count Result 121 k/mm3 (150-375); Red Blood Count 4.02 M/mm3 (4.6-6.20); Red Cell Distribution Width 15.1 % (11.5-14.5); White Blood Count 8.9 K/mm3 (4.5-10.0)
[2023-05-14] MEDS: LORazepam INJ (*CRX) 2 MG/ML VIAL IV PUSH (15:40)
--- NOTE | 2023-05-14 15:41 | PC.NURSE ---
This RN entered room and found pt seizing, made aware gave VORB for 2mg ativan IVP STAT. MD at bedside with patient. Seizure activity resolved after approx 30 seconds. Rn at bedside for medication administration. Pt placed on 2L NC O2 for oxygen saturation of 77%.
[2023-05-14 15:42] LABS: Alanine Aminotransferase 39 U/L (6-50); Albumin Level 4.3 g/dL (3.5-5.1); Alkaline Phosphatase 111 U/L (38-126); Anion Gap 17 mmol/L (8-16); Aspartate Amino Transferase 39 U/L (17-59); Bilirubin,Total 0.6 mg/dL (0.2-1.3); Blood Urea Nitrogen 12 mg/dL (9-20); Calcium 9.3 mg/dL (8.4-10.2); Carbon Dioxide 13 mmol/L (22-30); Chloride 108 mmol/L (98-107); Estimated CRCL calculation 60 ml/min; Estimated Glomerular Filt Rate > 60; Glucose 134 mg/dL (65-110); Potassium 4.2 mmol/L (3.4-5.0); Sodium 138 mmol/L (137-145)
[2023-05-14 15:52] LABS: Ethanol < 10 mg/dL (<10)
[2023-05-14] MEDS: LORazepam INJ (*CRX) 2 MG/ML VIAL 1 MG IV PUSH (16:05)
[2023-05-14 16:20] LABS: Glucose Point of Care 198 mg/dl (65-105)
== END 2023-05-14 19:42 | disposition home or self-care (01) ==
PROVIDERS: Emergency Provider Emergency Medicine; Referring Provider Emergency Medicine
DX: G40.909 Epilepsy, unspecified, not intractable, without status epilepticus (principal); J44.9 Chronic obstructive pulmonary disease, unspecified; K74.60 Unspecified cirrhosis of liver; K21.9 Gastro-esophageal reflux disease without esophagitis; G89.4 Chronic pain syndrome; F17.210 Nicotine dependence, cigarettes, uncomplicated; Z85.05 Personal history of malignant neoplasm of liver; Z86.19 Personal history of other infectious and parasitic diseases; Z87.11 Personal history of peptic ulcer disease; Z90.49 Acquired absence of other specified parts of digestive tract
CPT/HCPCS: 36415; 70450; 80053; 80307; 82948; 85025; 93005; 96365; 96375; 96376; 99284; J1953; J2060

== ENCOUNTER 2023-11-01 14:02 | Emergency (ER) | payer MEDICARE, MEDICAID, SELFPAY ==
[2023-11-01] VITALS (27 sets, daily range): BP systolic 113–157; BP diastolic 59–94; PULSE 90–127; RESP 12–31; TEMP 36.2; O2SAT 95–100
--- NOTE | ~2023-11-01 | XR_ITS ---
EXAMINATION: XR chest 1V portable DATE: 11/01/2023 15:35 INDICATION: Leukocytosis. Assess for pneumonia. TECHNIQUE: frontal view of the chest was obtained. COMPARISON: Chest radiograph dated 08/13/[address] dated 02/08/2023 FINDINGS: Emphysema with increased lucency and regions of architectural distortion, bronchovascular crowding an d thin linear and curvilinear opacities consistent with pleural parenchymal scarring in the bilateral upper lungs. Remainder the lungs are clear with no evident pneumonia, pulmonary edema, pleural effus ion or pneumothorax. The cardiomediastinal silhouette is normal. Cholecystectomy clips in the right u pper quadrant. IMPRESSION: 1. Emphysema with stable appearance of chronic pleural parenchymal scarring in the bilateral upper royal ngs. No acute cardiopulmonary disease. Reviewed, dictated and finalized at location A. IMPRESSION: 1. Emphysema with stable appearance of chronic pleural parenchymal scarring in the bilateral upper lungs. No acute cardiopulmonary disease.
--- NOTE | 2023-11-01 14:15 | ECG_ITS ---
Test Date: 2023-11-01 14:17:21 Measurements Intervals [place] Rate: 102 P: 83 NC: 124 QRS: 53 QRSD: 94 T: 76 QT: 362 QTc: 472 Interpretive Statements SINUS TACHYCARDIA MINIMAL Q WAVES- LATERAL LEADS BASELINE ARTIFACT- I, III, AVR, AVL, V4-V6 BORDERLINE ECG No previous ECG available for comparison Electronically Signed On 11-02-2023 14:52:05 CDT by Davidson Juarez D.O.
[2023-11-01] MEDS: ONDANSETRON INJ 4 MG/2 ML VIAL (14:20)
--- NOTE | 2023-11-01 14:20 | PC.NURSE ---
Pt repeatedly attempting to induce emesis by sticking hands in mouth, dry heaving. Pt refrained. made aware. Dr. Silvestre MITCHELL to gvie 4mg IVP zofran stat.
[2023-11-01] MEDS: LORazepam INJ (*CRX) 2 MG/ML VIAL (14:40)
[2023-11-01 14:42] LABS: Basophils Percent Auto 0.2 % (0.2-1.2); Hematocrit 39.9 % (42.0-52.0); Hemoglobin 13.8 g/dL (14.0-18.0); Immature Granulocyte Absolute 0.08 K/mm3 (0.00-0.031); Immature Granulocyte Percent A 0.5 % (0-0.5); Lymphocytes Absolute Auto 0.49 K/mm3 (0.9-3.2); Lymphocytes Percent Auto 2.8 % (18.3-44.2); Mean Corpuscular HGB Conc 34.6 g/dl (32-36); Mean Corpuscular Hemoglobin 32.1 pg (26-34); Mean Corpuscular Volume 92.8 fl (80-100); Mean Platelet Volume 12.6 fl (7.4-10.4); Monocytes Percent Auto 5.7 % (2.6-8.5); Neutrophils Absolute Auto 15.7 K/mm3 (1.3-6.7); Neutrophils Percent Auto 90.8 % (45.5-73.1); Platelet Count Result 125 k/mm3 (150-375); Red Cell Distribution Width 14.6 % (11.5-14.5); White Blood Count 17.3 K/mm3 (4.5-10.0)
--- NOTE | 2023-11-01 14:44 | PC.NURSE ---
Family at bedside. Pt started to clench fists and jaw. Pt stated that was his aura. Pt started seizing. made aware. Dr. Omar MITCHELL to give 2mg ativan IVP stat. Oxygen applied via NC at 6L.
[2023-11-01 14:52] LABS: INR 1.2; Prothrombin Time 15.1 Seconds (11.1-14.7)
[2023-11-01 14:53] LABS: Albumin Level 4.8 g/dL (3.5-5.1); Alkaline Phosphatase 124 U/L (38-126); Anion Gap 16 mmol/L (4-12); Aspartate Amino Transferase 40 U/L (17-59); Bilirubin,Total 0.5 mg/dL (0.2-1.3); Blood Urea Nitrogen 14 mg/dL (9-20); Calcium 9.6 mg/dL (8.4-10.2); Carbon Dioxide 15 mmol/L (22-30); Chloride 108 mmol/L (98-107); Estimated CRCL calculation 60 ml/min; Estimated Glomerular Filt Rate > 60; Glucose 199 mg/dL (65-110); Sodium 139 mmol/L (137-145)
[2023-11-01 14:55] LABS: Glucose Urine UA Trace mg/dL (Negative); Ketones Urine Negative (Negative); Protein Urine 2+ mg/dL (Negative); Specific Grav Ur 1.025 (1.001-1.035)
[2023-11-01 14:56] LABS: Add Urine Microscopic? YES; Bilirubin Urine Negative (Negative); Blood Urine 2+ (Negative); Leukocyte Esterase Ur Negative LEU/UL (Negative); Nitrate Urine Negative (Negative); Urobilinogen Urine 0.2 mg/dL (<2.0)
[2023-11-01 14:57] LABS: Appearance Urine Clear (Clear); Color Urine Yellow (Yellow)
[2023-11-01 15:02] LABS: Partial Thromboplastin Time 25.2 Seconds (22.3-36.8)
[2023-11-01 15:03] LABS: Alanine Aminotransferase 30 U/L (6-50)
--- NOTE | 2023-11-01 15:13 | ED_ITS ---
HPI - Seizure General Chief Complaint: Altered Mental Status Stated Complaint: ?seizure/altered LOC Time Seen by Provider: 11/01/23 14:19 Source: patient, family and EMS Mode of arrival: EMS Limitations: altered mental status History of Present Illness HPI Narrative: Patient presents with report of seizure while at home. Seizure was family in the note that was his typical seizure semiology. They note that he will stare and ground rhythmic shaking. Patient has a history of seizure disorder has been prescribed Keppra which his says he is prescribed 4000 mg a day of. However, she states he has not been taking it for a few months given the fact that he felt it was not working as he did continue to have seizures despite this. Is reported that he had been incontinent of bladder. Patient arrives via EMS which time he is visualized from the hallway while being transported by stretcher. He is seen to be attempting to self induce vomiting by putting his fingers in his throat numbness to repetitively be told stop doing this. Family note that he uses marijuana but denies any other recreational drugs or alcohol. They deny any new medications. Patient has a primary care physician, Barry Melchor but does not see a neurologist. He hands previously had CT brain imaging per family which did show of a stroke or any other marked features by their report.. Seizure History: Yes (narcotic and alcohol withdrawal) Related Data Home Medications Medication Instructions Recorded Confirmed gabapentin 800 mg tablet 800 mg PO QID 02/16/20 02/15/23 tenofovir disoproxil fumarate 300 300 mg PO DAILY 02/16/20 02/15/23 mg tablet albuterol sulfate 90 mcg/actuation 2 puff inhalation Q4-6H PRN 01/11/21 02/15/23 aerosol inhaler Shortness Of Breath Or Wheezing tamsulosin 0.4 mg capsule 0.4 mg PO DAILY 01/11/21 02/15/23 hydrocodone 5 mg-acetaminophen 325 1 tablet PO TID PRN Pain, Moderate 08/13/22 02/15/23 mg tablet budesonide-formoterol HFA 160 2 puff inhalation DAILY 02/15/23 02/15/23 mcg-4.5 mcg/actuation aerosol inhaler (Symbicort) fluticasone furoate 200 1 inh inhalation DAILY 02/15/23 02/15/23 mcg-vilanterol 25 mcg/dose inhalation powder (Breo Ellipta) Allergies Allergy/AdvReac Type Severity Reaction Status Date / Time hornet venom Allergy Unknown Unknown Verified 02/15/23 20:13 strawberry Allergy Unknown Unknown Verified 02/15/23 20:13 ciprofloxacin Allergy Unknown Verified 02/15/23 20:13 fentanyl Allergy Unknown Verified 02/15/23 20:13 metronidazole AdvReac Unknown Nausea And Verified 02/15/23 20:13 Vomiting PMFSH Past Medical History Medical History Alcohol abuse Most recent use 10/29/2020 Chronic pain syndrome Cirrhosis COPD (chronic obstructive pulmonary disease) GERD (gastroesophageal reflux disease) Hepatic encephalopathy Hepatocellular carcinoma radiation treatment Hepatocellular carcinoma History of hepatitis B Hx of peptic ulcer as a child Seizure Surgical History Surgical History History of cholecystectomy History of tibial fracture requiring surgical repair. Family History Family History Father Hypertension Cerebrovascular accident Myocardial infarct Sibling Hypertension Sibling Hypertension Father Hypertension Cerebrovascular accident Family history of coronary artery disease Sibling Hypertension Social History Social History Social History: Smokes 1/2 ppd since 17yo. He is trying to quit. Lives at home with his and children. He is a full code. The patient had 7 children. He is on disability. The patient continues to use marijuana gummies. He no longer uses cocaine or other illicit drugs. 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 Alcohol intake: never Alcohol use details: Alcohol use noted 10/29/2020 with etoh level of 24. Substance use: current Substance use type: marijuana Other substance usage details: has not had alcohol in 16 years/ was never a heavy drinker per Last use: no meth/cocaine in 16 years/uses marijuana currently for pain/appetite Lack of Transportation: YES Lack of Food: Sometimes True Current Housing: I Have Housing Concerned About Future Housing: YES Difficulty Paying Gas/Electric Bills: YES Difficulty Paying for Meds: YES Currently Unemployed: YES Education: High School Diploma/GED Difficulty w/ Childcare or Family Care: YES Living arrangements: with family Occupation/Education: other Gender identity (if verbalized by the patient): Male Sexual Orientation (if Verbalized by the Patient): Straight or Heterosexual Spiritual care concerns: No Agree to blood products: Yes Exam Narrative: GENERAL: appears older than stated age, chronically ill appearing HEAD: Normocephalic, atraumatic. EYES: Non injected, non icteric ENT: Nares clear, no rhinorrhea or epistaxis. NECK: Supple. CHEST: Protecting airway but nasal cannula had been applied by nursing staff during seizure activity patient had not been hypoxic HEART: Tachycardic rate and rhythm. . ABDOMEN: Soft, nondistended. EXTREMITIES: Normal range of motion. No lower extremity edema. SKIN: Warm, dry, no rash. NEURO: Patient demonstrating seizure activity upon my arrival at bedside. Course Vital Signs Vital signs: Vital Signs Temperature 97.2 F L 11/01/23 14:02 Pulse Rate 104 H 11/01/23 14:02 Respiratory Rate 16 11/01/23 14:02 Blood Pressure 157/85 H 11/01/23 14:02 Pulse Oximetry 98 11/01/23 14:02 Temperature 97.2 F L 11/01/23 14:02 Pulse Rate 91 11/01/23 18:00 Respiratory Rate 20 11/01/23 18:00 Blood Pressure 122/66 11/01/23 18:00 Pulse Oximetry 100 11/01/23 16:32 Oxygen Delivery Room Air 11/01/23 14:47 MDM - Seizure MDM Narrative Medical decision making narrative: Patient presents after reported seizure activity home. He is initially seen while being transported via stretcher in the hallway upon arrival to the emergency department. At that time he appeared alert enough and he had been noted to be visualized attempting to self induce vomiting by putting his fingers in his throat. In the emergency department he is afebrile with vital signs notable for mild tachycardia as well as mild hypertension. I am called to bedside as patient has been when is having seizure activity. Ativan ordered. Patient had not received anything prior to this either at home or by EMS for seizure. Patient has a history of seizures and is supposed to be on Keppra b.i.d. but reports he has been taking it for a few months as he felt it was not working given that he had continued to have seizures. Mild hyperglycemia with an anion gap and slight acidosis. Beta hydroxybuturate ordered but urine negative for ketones. 2+ protein and trace glucosuria. Patient is loaded with Keppra at approximately 60 mg per kg, 3000 mg total. Patient does have a leukocytosis, possibly stress response/post seizure activity however I did obtain a chest x-ray which does not show evidence of pneumonia. Urinalysis without evidence of urinary tract infection and no evidence of skin infection on exam. Will defer obtaining repeat head CT as it does seem that patient's seizures are due to being noncompliant/non adherent with antiepileptic drug regimen. He does remain somewhat somnolent on repeat assessments. Discussed extensively with patient's that I recommend that he continue taking Keppra at the present time and the need to follow-up with primary care physician versus neurology to discuss possible change to his antiepileptic drug regimen. She verifies understanding. I discussed that I would wait to discharge patient until I saw that he was back at baseline. She states she feels comfortable taking him home even if he is somnolent as there are people at home who can help care for him and assist with transportation/moving him to/from car. Vital signs are within normal limits and I did still wait a bit to put in patient's discharge order and instructions to allow for more time to improve mentation. Keppra 1000mg two tablets by mouth twice daily has been prescribed this year. Will re-prescribe the same despite former record stating Keppra 750mg BID. Differential Diagnosis Differential diagnosis: Likely intractable seizure disorder, focal seizure, generalized seizure, epileptic seizure and status epilepticus Lab Data Attestation: I reviewed the patient's lab results. Lab results narrative: Normocytic anemia, leukocytosis, thrombocytopenia No marked electrolyte abnormalities 11/01/23 14:29 11/01/23 14:29 Labs: Lab Results 11/01/23 11/01/23 Range/Units 14:29 15:40 WBC 17.3 H (4.5-10.0) K/mm3 RBC 4.30 L (4.6-6.20) M/mm3 Hgb 13.8 L (14.0-18.0) g/dL Hct 39.9 L (42.0-52.0) % MCV 92.8 (80-100) fl MCH 32.1 (26-34) pg MCHC 34.6 (32-36) g/dl RDW 14.6 H (11.5-14.5) % Plt Count 125 L (150-375) k/mm3 MPV 12.6 H (7.4-10.4) fl Immature Gran % (Auto) 0.5 (0-0.5) % Neut % (Auto) 90.8 H (45.5-73.1) % Lymph % (Auto) 2.8 L (18.3-44.2) % [place] % (Auto) 5.7 (2.6-8.5) % Eos % (Auto) 0.0 (0-4.4) % Baso % (Auto) 0.2 (0.2-1.2) % Lymph # (Auto) 0.49 L (0.9-3.2) K/mm3 [place] # (Auto) 1.0 H (0.1-0.6) K/mm3 Eos # (Auto) 0.0 (0-0.3) K/mm3 Baso # (Auto) 0.0 (0.0-0.1) K/mm3 Abs Immat Gran (auto) 0.08 H (0.00-0.031) K/mm3 Absolute Neuts (auto) 15.7 H (1.3-6.7) K/mm3 Absolute Nucleated RBC 0.000 (0.0-0.012) K/mm3 Nucleated RBC % 0.0 (0.0-0.2) % PT 15.1 H (11.1-14.7) Seconds INR 1.2 APTT 25.2 (22.3-36.8) Seconds Sodium 139 (137-145) mmol/L Potassium 4.0 (3.4-5.0) mmol/L Chloride 108 H (98-107) mmol/L Carbon Dioxide 15 L (22-30) mmol/L Anion Gap 16 H (4-12) mmol/L BUN 14 (9-20) mg/dL Creatinine 0.90 (0.7-1.3) mg/dL Estim Creat Clear Calc 60 ml/min Estimated GFR > 60 (59 - ) Glucose 199 H (65-110) mg/dL Hemoglobin A1c 5.1 (<5.7) % Calcium 9.6 (8.4-10.2) mg/dL Total Bilirubin 0.5 (0.2-1.3) mg/dL AST 40 (17-59) U/L ALT 30 (6-50) U/L Alkaline Phosphatase 124 (38-126) U/L Total Protein 8.0 (6.3-8.2) g/dL Albumin 4.8 (3.5-5.1) g/dL Beta-Hydroxybutyrate/Acetoacetate 0.29 H (0.02-0.27) mmol/L Urine Color Yellow (Yellow) Urine Appearance Clear (Clear) Urine pH 6.0 (5.0-9.0) Ur Specific [place] 1.025 (1.001-1.035) Urine Protein 2+ H (Negative) mg/dL Urine Glucose (UA) Trace H (Negative) mg/dL Urine Ketones Negative (Negative) mg/dL Ur Blood (Man) 2+ H (Negative) Urine Nitrate Negative (Negative) Urine Bilirubin Negative (Negative) Urine Urobilinogen 0.2 (<2.0) mg/dL Leukocyte Esterase Rfl Negative (Negative) MARILIA/UL Urine RBC 0-2 (0-2) /hpf Urine WBC 0-5 (0-3) /hpf Ur Squamous Epith Cells None seen (Few) /hpf Urine Bacteria None seen /hpf Urine Casts 3-5 Urine Opiates Screen Negative (Negative) Urine Methadone Screen Negative (Negative) Ur Barbiturates Screen Negative (Negative) Ur Phencyclidine Scrn Negative (Negative) Ur Amphetamine Screen Negative (Negative) U Benzodiazepines Scrn Negative (Negative) Urine Cocaine Screen Negative (Negative) U Cannabinoids Screen Positive A (Negative) Influenza A (RT-PCR) Negative (Negative) Influenza B (RT-PCR) Negative (Negative) RSV (RT-PCR) Negative (Negative) SARS-CoV-2 RNA (RT-PCR) Negative (Negative) Imaging Data Radiologist's impression: IMPRESSION: 1. Emphysema with stable appearance of chronic pleural parenchymal scarring in the bilateral upper lungs. No acute cardiopulmonary disease Discharge Plan Discharge Clinical Impression: Seizure secondary to subtherapeutic anticonvulsant medication, Normocytic anemia, Thrombocytopenia, Leukocytosis, Marijuana use Patient Disposition: Home, Self-Care Condition: Stable Instructions: Antibiotic Form, Epilepsy (DC), Leukocytosis (ED), Cannabis Use Disorder (ED), Anemia (ED), Thrombocytopenia (ED) Additional Instructions: As we discussed, it is very important that you take your anti seizure medication. Given that you feel it is not effective for has undesirable side effects, I recommend you follow-up with your primary care physician or Neurology (referral contact info below) to discuss alternative regimen. In the interim, your anti epileptic drug has been re-prescribed. You already received 3000mg IV Keppra this afternoon as well as another medication. Return to the ED if any new/worsening symptoms. Keep your other upcoming appointments with the rest of your care team. Prescriptions: New levetiracetam [Keppra] 1,000 mg tablet 2,000 mg PO BID 30 Days Qty: 120 0RF No Action hydrocodone-acetaminophen 5-325 mg tablet 1 tablet PO TID PRN (Reason: Pain, Moderate) budesonide-formoterol [Symbicort] 160-4.5 mcg/actuation HFA aerosol inhaler 2 puff INHALATION DAILY fluticasone furoate-vilanterol [Breo Ellipta] 200-25 mcg/dose blister with device 1 inh INHALATION DAILY levetiracetam [Keppra] 750 mg tablet 750 mg PO BID Qty: 60 0RF tamsulosin 0.4 mg capsule 0.4 mg PO DAILY albuterol sulfate 90 mcg/actuation HFA aerosol inhaler 2 puff INHALATION Q4-6H PRN (Reason: Shortness Of Breath Or Wheezing) gabapentin 800 mg Tablet 800 mg PO QID tenofovir disoproxil fumarate 300 mg Tablet 300 mg PO DAILY Follow-up/Referrals: Alen Hernandez MD [Physician] - (neurology) PHYSICIAN,CERTIFIED OPHTHALMIC MEDICAL TECHNICIAN [Primary Care Provider] - Stand Alone Forms: Work/School Release IP Time of Disposition: 17:49
[2023-11-01 15:27] LABS: Bacteria Urine None Seen /hpf; RBC Urine 0-2 /hpf (0-2); Squamous Epithelial Cell Urine None Seen /hpf (Few); WBC Urine 0-5 /hpf (0-3)
[2023-11-01 15:43] LABS: Barbiturate Screen Urine Negative (Negative); Benzodiazepines Screen Urine Negative (Negative)
--- NOTE | 2023-11-01 15:45 | PC.NURSE ---
Pt oxygen decreased to 2L NC.
[2023-11-01] MEDS: levETIRAcetam 1500MG/NACL100ML 1,500 MG/100 ML BAG 600 MG IVPB ×2 (15:46→16:05)
--- NOTE | 2023-11-01 15:52 | PC.NURSE ---
Pt weaned off O2. Room air 100%.
--- NOTE | 2023-11-01 15:52 | PC.NURSE ---
Pt now resting comfortably.
[2023-11-01 15:57] LABS: Amphetamine Screen Urine Negative (Negative); Cannabinoid Screen Urine Positive (Negative); Cocaine Screen Urine Negative (Negative); Methadone Screen Urine Negative (Negative); Opiate Screen Urine Negative (Negative); Phencyclidine Screen Urine Negative (Negative)
[2023-11-01 15:58] LABS: Beta-Hydroxybutyrate/Acetoacetate 0.29 mmol/L (0.02-0.27)
[2023-11-01] MEDS: SODIUM CHLORIDE 0.9% IV 1,000 ML 999 ML IV CONT (16:05)
[2023-11-01 16:21] LABS: Influenza A QL RT-PCR Negative (Negative); Influenza B QL RT-PCR Negative (Negative); RSV RNA, RT-PCR Negative (Negative); SARS-CoV-2 RNA PCR Negative (Negative)
[2023-11-01 16:46] LABS: Hemoglobin A1C 5.1 % (<5.7)
== END 2023-11-01 18:06 | disposition home or self-care (01) ==
PROVIDERS: Emergency Provider Student in an Organized Health Care Education/Training Program
DX: G40.509 Epileptic seizures related to external causes, not intractable, without status epilepticus (principal); G40.909 Epilepsy, unspecified, not intractable, without status epilepticus; D64.9 Anemia, unspecified; D69.6 Thrombocytopenia, unspecified; D72.829 Elevated white blood cell count, unspecified; F12.90 Cannabis use, unspecified, uncomplicated; J44.9 Chronic obstructive pulmonary disease, unspecified; F17.210 Nicotine dependence, cigarettes, uncomplicated; Z79.899 Other long term (current) drug therapy; Z20.822 Contact with and (suspected) exposure to COVID-19
CPT/HCPCS: 36415; 71045; 80053; 80307; 81001; 82010; 83036; 85025; 85610; 85730; 87637; 93005; 96361; 96365; 96375; 99285; J1953; J2060; J2405; J7030

== ENCOUNTER 2023-11-22 11:14 | Outpatient (CLI) | payer MEDICARE, MEDICAID, SELFPAY ==
[2023-11-22 11:42] LABS: Basophils Percent Auto 0.5 % (0.2-1.2); Eosinophils Absolute Auto 0.1 K/mm3 (0-0.3); Hemoglobin 14.1 g/dL (14.0-18.0); Immature Granulocyte Absolute 0.01 K/mm3 (0.00-0.031); Immature Granulocyte Percent A 0.2 % (0-0.5); Lymphocytes Absolute Auto 0.79 K/mm3 (0.9-3.2); Lymphocytes Percent Auto 18.3 % (18.3-44.2); Mean Corpuscular HGB Conc 33.6 g/dl (32-36); Mean Corpuscular Hemoglobin 31.7 pg (26-34); Mean Corpuscular Volume 94.4 fl (80-100); Monocytes Absolute Auto 0.3 K/mm3 (0.1-0.6); Monocytes Percent Auto 5.8 % (2.6-8.5); Neutrophils Absolute Auto 3.1 K/mm3 (1.3-6.7); Neutrophils Percent Auto 72.2 % (45.5-73.1); Platelet Count Result 109 k/mm3 (150-375); Red Blood Count 4.45 M/mm3 (4.6-6.20); Red Cell Distribution Width 14.5 % (11.5-14.5); White Blood Count 4.3 K/mm3 (4.5-10.0)
[2023-11-22 13:37] LABS: Iron 106 ug/dL (49-181)
[2023-11-22 13:50] LABS: Percent Iron Saturation 27 % (20-50)
[2023-11-22 16:51] LABS: Alanine Aminotransferase 27 U/L (6-50); Albumin Level 5.1 g/dL (3.5-5.1); Alkaline Phosphatase 121 U/L (38-126); Anion Gap 13 mmol/L (4-12); Aspartate Amino Transferase 39 U/L (17-59); Bilirubin,Total 0.7 mg/dL (0.2-1.3); Blood Urea Nitrogen 12 mg/dL (9-20); Calcium 9.9 mg/dL (8.4-10.2); Carbon Dioxide 24 mmol/L (22-30); Chloride 101 mmol/L (98-107); Estimated Glomerular Filt Rate > 60; Glucose 98 mg/dL (65-110); Potassium 4.1 mmol/L (3.4-5.0); Sodium 138 mmol/L (137-145)
[2023-11-24 20:42] LABS: Platelet Antibody, Direct NEGATIVE (NEGATIVE)
[2023-11-26 13:39] LABS: Soluble Transferrin Receptor 1.91 mg/L (0.76-1.76)
[2023-12-03 12:18] LABS: Methylmalonic Acid 98 nmol/L (69-390)
== END 2023-11-22 11:15 | disposition home or self-care (01) ==
LOC: ANHLAB 11:17
PROVIDERS: Visit Provider Internal Medicine Hematology & Oncology
DX: D64.9 Anemia, unspecified (principal)
CPT/HCPCS: 36415; 80053; 82607; 82728; 82746; 83540; 83550; 83921; 84238; 85025; 85055; 86023

== ENCOUNTER 2023-12-07 20:06 | Emergency (ER) | payer MEDICARE, MEDICAID, SELFPAY ==
--- NOTE | ~2023-12-07 | XR_ITS ---
XR chest 2V Ordering provider: Rogelio Thurman MD History: 58 years Male with . syncope . Comparison: November 01, 2023 FINDINGS: MEDIASTINUM: The cardiac silhouette is not enlarged. LUNGS: No infiltrates, effusions or pneumothorax. Underlying emphysematous changes. OTHER: No free air under the diaphragm. Degenerative changes of the spine. IMPRESSION: No acute cardiopulmonary pathology. Reviewed, dictated and finalized at location A.
--- NOTE | 2023-12-07 20:28 | ECG_ITS ---
Test Date: 2023-12-07 20:32:25 Measurements Intervals [place] Rate: 72 P: 76 VA: 151 QRS: 41 QRSD: 84 T: 62 QT: 376 QTc: 414 Interpretive Statements SINUS RHYTHM WITHIN NORMAL LIMITS Compared to ECG 11/01/2023 14:17:21 Sinus tachycardia no longer present Electronically Signed On 12-08-2023 07:20:48 CDT by Veto Valente M.D.
[2023-12-07 20:29] VITALS: BP 113/59; PULSE 66; RESP 16; TEMP 36.6; O2SAT 97
--- NOTE | 2023-12-07 21:28 | PC.NURSE ---
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 we are going to go ahead and go. it is too busy to wait.
== END 2023-12-07 22:12 | disposition left against medical advice (07) ==
LOC: ANHED 21:54
PROVIDERS: Emergency Provider Emergency Medicine
DX: R55 Syncope and collapse (principal)
CPT/HCPCS: 71046; 93005; 99199

== ENCOUNTER 2023-12-08 00:40 | Emergency (ER) | payer MEDICARE, MEDICAID, SELFPAY ==
--- NOTE | 2023-12-08 00:41 | ECG_ITS ---
Test Date: 2023-12-08 00:48:43 Measurements Intervals [place] Rate: 62 P: 69 [place]: 148 QRS: 39 QRSD: 93 T: 64 QT: 391 QTc: 399 Interpretive Statements SINUS RHYTHM WITHIN NORMAL LIMITS Compared to ECG 12/07/2023 20:32:25 No significant changes Electronically Signed On 12-08-2023 07:23:51 CDT by Veto Valente M.D.
[2023-12-08 00:44] VITALS: BP 136/80; PULSE 78; RESP 18; O2SAT 98
--- NOTE | 2023-12-08 01:13 | ED.DIZZY ---
HPI - Dizziness General Chief Complaint: Syncope Stated Complaint: nauseated, near syncopal Time Seen by Provider: 12/08/23 00:55 History of Present Illness HPI Narrative: 58-year-old male presenting to the emergency department for evaluation for persistent nausea vomiting lightheaded and dizziness. Patient states that the symptoms started yesterday. Patient felt excessively fatigued today. Patient attempted to be seen emergency department earlier but left due to the wait times. Patient had recurrent symptoms so he return to the emergency department. Patient does have a history of COPD emphysema and daily THC use. Related Data Home Medications Medication Instructions Recorded Confirmed gabapentin 800 mg tablet 800 mg PO QID 02/16/20 02/15/23 tenofovir disoproxil fumarate 300 300 mg PO DAILY 02/16/20 02/15/23 mg tablet albuterol sulfate 90 mcg/actuation 2 puff inhalation Q4-6H PRN 01/11/21 02/15/23 aerosol inhaler Shortness Of Breath Or Wheezing tamsulosin 0.4 mg capsule 0.4 mg PO DAILY 01/11/21 02/15/23 hydrocodone 5 mg-acetaminophen 325 1 tablet PO TID PRN Pain, Moderate 08/13/22 02/15/23 mg tablet budesonide-formoterol HFA 160 2 puff inhalation DAILY 02/15/23 02/15/23 mcg-4.5 mcg/actuation aerosol inhaler (Symbicort) fluticasone furoate 200 1 inh inhalation DAILY 02/15/23 02/15/23 mcg-vilanterol 25 mcg/dose inhalation powder (Breo Ellipta) Allergies Allergy/AdvReac Type Severity Reaction Status Date / Time hornet venom Allergy Unknown Unknown Verified 12/07/23 20:35 strawberry Allergy Unknown Unknown Verified 12/07/23 20:35 ciprofloxacin Allergy Unknown Verified 12/07/23 20:35 fentanyl Allergy Unknown Verified 12/07/23 20:35 metronidazole AdvReac Unknown Nausea And Verified 12/07/23 20:35 Vomiting Review of Systems Review of Systems: All systems reviewed & are unremarkable except as noted in HPI and below PMFSH Past Medical History Medical History Alcohol abuse Most recent use 10/29/2020 Chronic pain syndrome Cirrhosis COPD (chronic obstructive pulmonary disease) GERD (gastroesophageal reflux disease) Hepatic encephalopathy Hepatocellular carcinoma radiation treatment Hepatocellular carcinoma History of hepatitis B Hx of peptic ulcer as a child Seizure Surgical History Surgical History History of cholecystectomy History of tibial fracture requiring surgical repair. Family History Family History Father Hypertension Cerebrovascular accident Myocardial infarct Sibling Hypertension Sibling Hypertension Father Hypertension Cerebrovascular accident Family history of coronary artery disease Sibling Hypertension Social History Social History Social History: Smokes 1/2 ppd since 17yo. He is trying to quit. Lives at home with his and children. He is a full code. The patient had 7 children. He is on disability. The patient continues to use marijuana gummies. He no longer uses cocaine or other illicit drugs. 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 Alcohol intake: never Alcohol use details: Alcohol use noted 10/29/2020 with etoh level of 24. Substance use: current Substance use type: marijuana Other substance usage details: has not had alcohol in 16 years/ was never a heavy drinker per Last use: no meth/cocaine in 16 years/uses marijuana currently for pain/appet
[2023-12-08 01:19] LABS: Basophils Percent Auto 0.7 % (0.2-1.2); Eosinophils Absolute Auto 0.1 K/mm3 (0-0.3); Eosinophils Percent Auto 2.4 % (0-4.4); Hematocrit 38.5 % (42.0-52.0); Hemoglobin 13.2 g/dL (14.0-18.0); Immature Granulocyte Absolute 0.01 K/mm3 (0.00-0.031); Immature Granulocyte Percent A 0.2 % (0-0.5); Immature Platelet Fraction Pct 8.4 % (0.9-11.2); Lymphocytes Absolute Auto 0.63 K/mm3 (0.9-3.2); Mean Corpuscular HGB Conc 34.3 g/dl (32-36); Mean Corpuscular Hemoglobin 32.3 pg (26-34); Mean Corpuscular Volume 94.1 fl (80-100); Mean Platelet Volume 11.7 fl (7.4-10.4); Monocytes Absolute Auto 0.3 K/mm3 (0.1-0.6); Monocytes Percent Auto 7.4 % (2.6-8.5); Neutrophils Absolute Auto 3.1 K/mm3 (1.3-6.7); Neutrophils Percent Auto 74.3 % (45.5-73.1); Platelet Count Result 60 k/mm3 (150-375); Red Blood Count 4.09 M/mm3 (4.6-6.20); Red Cell Distribution Width 14.6 % (11.5-14.5); White Blood Count 4.2 K/mm3 (4.5-10.0)
[2023-12-08] MEDS: ONDANSETRON INJ 4 MG/2 ML VIAL IV PUSH ×2 (01:19→04:04)
[2023-12-08] MEDS: SODIUM CHLORIDE 0.9% IV 1,000 ML 999 ML IV CONT (01:19)
[2023-12-08] MEDS: ALBUTEROL SULFATE NEB 2.5 MG/3 ML INH 5 MG INHALATION (01:24)
[2023-12-08 01:26] VITALS: PULSE 78
[2023-12-08 01:26] LABS: Alanine Aminotransferase 35 U/L (6-50); Albumin Level 4.6 g/dL (3.5-5.1); Alkaline Phosphatase 92 U/L (38-126); Anion Gap 11 mmol/L (4-12); Aspartate Amino Transferase 45 U/L (17-59); Bilirubin,Total 0.7 mg/dL (0.2-1.3); Blood Urea Nitrogen 14 mg/dL (9-20); Carbon Dioxide 21 mmol/L (22-30); Chloride 106 mmol/L (98-107); Estimated CRCL calculation 59 ml/min; Estimated Glomerular Filt Rate > 60; Glucose 107 mg/dL (65-110); Sodium 138 mmol/L (137-145)
[2023-12-08] MEDS: METOCLOPRAMIDE HCL INJ 10 MG/2 ML VIAL IV PUSH (01:38)
[2023-12-08 01:40] VITALS: BP 193/97; PULSE 97; RESP 22; O2SAT 99
[2023-12-08] MEDS: GABAPENTIN 400 MG CAPSULE 800 MG PO (02:22)
[2023-12-08] MEDS: HALOPERIDOL LACTATE 5 MG/ML VIAL IM (02:57)
[2023-12-08 04:19] VITALS: BP 120/79; PULSE 88; RESP 20; O2SAT 96
== END 2023-12-08 04:21 | disposition home or self-care (01) ==
PROVIDERS: Emergency Provider Emergency Medicine; PCP Internal Medicine Gastroenterology
DX: R11.2 Nausea with vomiting, unspecified (principal); J43.9 Emphysema, unspecified; G89.4 Chronic pain syndrome; K74.60 Unspecified cirrhosis of liver; K21.9 Gastro-esophageal reflux disease without esophagitis; Z85.05 Personal history of malignant neoplasm of liver; Z92.3 Personal history of irradiation; F17.210 Nicotine dependence, cigarettes, uncomplicated; Z79.899 Other long term (current) drug therapy
CPT/HCPCS: 36415; 80053; 85025; 85055; 93005; 94640; 96361; 96372; 96374; 96375; 99284; A9270; J1630; J2405; J2765; J7030

== ENCOUNTER 2024-02-22 12:38 | Emergency (ER) | payer MEDICARE, MEDICAID, SELFPAY ==
--- NOTE | ~2024-02-22 | XR_ITS ---
EXAMINATION: XR chest 2V DATE: 02/22/2024 13:05 INDICATION: Productive cough. Shortness of breath. TECHNIQUE: Frontal and lateral views of the chest were obtained. COMPARISON: Chest 2 views 12/07/2023, chest CT 02/08/2023 FINDINGS: There are lucencies and interstitial opacities at the lung apices, consistent with emphysem a. There is mild scarring in the upper lobes. No pleural effusion or pneumothorax. The heart size is normal. Surgical clips in the right upper quadrant are likely from cholecystectomy. IMPRESSION: 1. Emphysema. 2. Mild scarring in the upper lobes. Reviewed, dictated and finalized at location A. UE MAKER
--- NOTE | 2024-02-22 12:42 | ED.URI ---
HPI - URI/Sore Throat General Chief Complaint: Upper Respiratory Infection Stated Complaint: SOB/VOMITING/CONGESTION/COUGH Time Seen by Provider: 02/22/24 12:41 Source: patient Mode of arrival: ambulatory Limitations: no limitations History of Present Illness HPI Narrative: Ronan is a 4-year-old male patient presenting to the clinic today with complaints of shortness of breath, nausea, vomiting, congestion, and cough. He reports symptoms have been going on for approximately 4 days. Has had fever. Denies any chest pain but does have shortness of breath. History of emphysema. Has vomited approximately 4 times. Is bringing up green phlegm MD elicited complaint: sore throat and nasal congestion Related Data Home Medications ?Medication ?Instructions ?Recorded ?Confirmed ?Last Taken ?Type gabapentin 800 mg tablet 800 mg PO QID 02/16/20 02/15/23 12/07/23 History tenofovir disoproxil fumarate 300 300 mg PO DAILY 02/16/20 02/15/23 06/16/22 History mg tablet albuterol sulfate 90 mcg/actuation 2 puff inhalation Q4-6H PRN 01/11/21 02/15/23 12/07/23 History aerosol inhaler Shortness Of Breath Or Wheezing tamsulosin 0.4 mg capsule 0.4 mg PO DAILY 01/11/21 02/15/23 12/07/23 History hydrocodone 5 mg-acetaminophen 325 1 tablet PO TID PRN Pain, Moderate 08/13/22 02/15/23 12/07/23 History mg tablet budesonide-formoterol HFA 160 2 puff inhalation DAILY 02/15/23 02/15/23 12/07/23 History mcg-4.5 mcg/actuation aerosol inhaler (Symbicort) fluticasone furoate 200 1 inh inhalation DAILY 02/15/23 02/15/23 12/07/23 History mcg-vilanterol 25 mcg/dose inhalation powder (Breo Ellipta) Allergies Allergy/AdvReac Type Severity Reaction Status Date / Time hornet venom Allergy Unknown Unknown Verified 12/07/23 20:35 strawberry Allergy Unknown Unknown Verified 12/07/23 20:35 ciprofloxacin Allergy Unknown Verified 12/07/23 20:35 fentanyl Allergy Unknown Verified 12/07/23 20:35 metronidazole AdvReac Unknown Nausea And Verified 12/07/23 20:35 Vomiting Review of Systems Review of Systems: Pertinent positives per HPI. Patient denies any rash, headache, visual changes, dizziness, chest pain, palpitations, diarrhea, constipation, abdominal pain, or any urinary issues. [facility] Past Medical History Medical History Alcohol abuse Most recent use 10/29/2020 Chronic pain syndrome Cirrhosis COPD (chronic obstructive pulmonary disease) GERD (gastroesophageal reflux disease) Hepatic encephalopathy Hepatocellular carcinoma radiation treatment Hepatocellular carcinoma History of hepatitis B Hx of peptic ulcer as a child Seizure Surgical History Surgical History History of tibial fracture requiring surgical repair. History of cholecystectomy Family History Family History Father Hypertension Cerebrovascular accident Myocardial infarct Sibling Hypertension Sibling Hypertension Father Hypertension Cerebrovascular accident Family history of coronary artery disease Sibling Hypertension Social History Social History Social History: Smokes 1/2 ppd since 17yo. He is trying to quit. Lives at home with his and children. He is a full code. The patient had 7 children. He is on disability. The patient continues to use marijuana gummies. He no longer uses cocaine or other illicit drugs. 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 Alcohol intake: never Alcohol use details: Alcohol use noted 10/29/2020 with etoh level of 24. Substance use: current Substance use type: marijuana Other substance usage details: has not had alcohol in 16 years/ was never a heavy drinker per Last use: no meth/cocaine in 16 years/uses marijuana currently for pain/appetite Lack of Transportation: YES Lack of Food: Sometimes True Current Housing: I Have Housing Concerned About Future Housing: YES Difficulty Paying Gas/Electric Bills: YES Difficulty Paying for Meds: YES Currently Unemployed: YES Education: High School Diploma/GED Difficulty w/ Childcare or Family Care: YES Living arrangements: with family Occupation/Education: other Gender identity (if verbalized by the patient): Male Sexual Orientation (if Verbalized by the Patient): Straight or Heterosexual Spiritual care concerns: No Agree to blood products: Yes Comments At the time of my signature, I reviewed and agree with the nursing past medical, surgical, social, and family history. There is no relevant family history pertinent to the patient complaint. Exam Narrative: General: Well-developed, well nourished, in no apparent distress Head: Normocephalic, atraumatic Eyes: Pupils equally round and reactive to light bilaterally, EOM intact, sclera and conjunctive clear, no discharge, lids normal Ears: TMs intact and congested, ear canals clear, no drainage, grossly hearing normal. Nose: Nares patent, green nasal discharge, moderate inflammation, no sinus tenderness. Mouth: Oral pharynx without lesions or masses, good dentition, MMM. Neck: Supple, trachea midline, no enlargement of anterior or posterior cervical nodes, no thyroid masses or goiter palpable. Cardio: Regular rate and rhythm, s1 and s2 normal, no murmur appreciated. Resp: Diminished lung sounds, no rhonchi, rales, wheezing or rubs Abdomen: Soft, pliable, bowel sounds present in all quadrants, non-tender to palpation, no organomegly, no CVAT tenderness. Course Course Emergency Course: Portions of this record may have been created with voice recognition software. Level of Care: Express Care Visit Vital Signs Vital signs: Vital Signs Temperature 38.3 C H 02/22/24 12:51 Pulse Rate 104 H 02/22/24 12:51 Respiratory Rate 20 02/22/24 12:51 Blood Pressure 132/78 02/22/24 12:51 Pulse Oximetry 96 02/22/24 12:51 Temperature 38.3 C H 02/22/24 12:51 Pulse Rate 104 H 02/22/24 12:51 Respiratory Rate 20 02/22/24 12:51 Blood Pressure 132/78 02/22/24 12:51 Pulse Oximetry 96 02/22/24 12:51 Vital signs reviewed MDM - URI/Sore Throat MDM Narrative Medical decision making narrative: At the time of visit patient is resting comfortably on the exam table. Patient appears to be nontoxic. Labs: COVID and influenza testing was negative in the clinic today. Diagnostics: Chest x-rays negative for any acute cardiopulmonary process. Patient does have emphysema with scarring to the lungs. Plan: I suspect patient has COPD exacerbation/acute nausea and vomiting. Prescription for Zofran, prednisone, doxycycline, and albuterol inhaler was sent to the pharmacy. Supportive measures were discussed with the patient and they voiced understanding discharge instructions and agrees to treatment plan. Return precautions reviewed Differential Diagnosis Differential diagnosis: Likely upper respiratory infection, otitis media, sinusitis, viral infection, bronchitis, influenza, pharyngitis and other (COVID.) Lab Data Labs: Lab Results 02/22/24 Range/Units 13:14 POC Influenza A Ag Negative (Negative) POC Influenza B Ag Negative (Negative) POC SARS CoV-2 Ag Negative (Negative) Imaging Data Radiologist's impression: ITS Impressions Chest X-Ray 02/22/24 13:09 IMPRESSION: 1. Emphysema. 2. Mild scarring in the upper lobes. Discharge Plan Discharge Clinical Impression: Asthma exacerbation in COPD, Acute nausea with nonbilious vomiting Patient Disposition: Home, Self-Care Condition: Stable Instructions: Antibiotic Form, COPD (Chronic Obstructive Pulmonary Disease) (ED), Acute Nausea and Vomiting (ED) Additional Instructions: COVID and influenza testing was negative in the clinic today. Chest x-rays negative for any sign of pneumonia. Take prescription medications only as prescribed-doxycycline, albuterol inhaler, prednisone, and ondansetron Increase fluids and stay well hydrated Tylenol/motrin for pain/fever Flonase and OTC antihistamines as directed Vicks vapor rub to open sinuses Sinus rinses for congestion Cepacol spray, cough drops, throat lozenges, warm tea with honey/lemon, gargle salt water to soothe throat BRAT diet for diarrhea Clear liquids x 24 hours then advance as tolerated for nausea/vomiting Go to the ED if you develop a worsening in your condition- high fever not controlled by Tylenol or Motrin, dehydration, weakness, lethargy, shortness of breath, or chest pain. Follow up with your PCP in 3-5 days if symptoms persist. Patient Language: Swedish Prescriptions: New ondansetron 4 mg tablet,disintegrating 4 mg PO Q6H PRN (Reason: nausea and vomiting) 3 Days Qty: 12 0RF prednisone 20 mg tablet 40 mg PO DAILY 5 Days Qty: 10 0RF doxycycline hyclate 100 mg capsule 100 mg PO BID 7 Days Qty: 14 0RF albuterol sulfate 90 mcg/actuation HFA aerosol inhaler 2 puff inhalation Q4-6H PRN (Reason: shortness of breath or wheezing) 30 Days Qty: 8.5 0RF No Action hydrocodone-acetaminophen 5-325 mg tablet 1 tablet PO TID PRN (Reason: Pain, Moderate) budesonide-formoterol [Symbicort] 160-4.5 mcg/actuation HFA aerosol inhaler 2 puff INHALATION DAILY fluticasone furoate-vilanterol [Breo Ellipta] 200-25 mcg/dose blister with device 1 inh INHALATION DAILY levetiracetam [Keppra] 750 mg tablet 750 mg PO BID Qty: 60 0RF tamsulosin 0.4 mg capsule 0.4 mg PO DAILY albuterol sulfate 90 mcg/actuation HFA aerosol inhaler 2 puff INHALATION Q4-6H PRN (Reason: Shortness Of Breath Or Wheezing) levetiracetam [Keppra] 1,000 mg tablet 2,000 mg PO BID 30 Days Qty: 120 0RF gabapentin 800 mg Tablet 800 mg PO QID tenofovir disoproxil fumarate 300 mg Tablet 300 mg PO DAILY ondansetron 4 mg tablet,disintegrating 4 mg PO Q8H PRN (Reason: nausea and vomiting) Qty: 20 0RF Follow-up/Referrals: UNKNOWN,DOCTOR [Non-Staff] - Stand Alone Forms: Work/School Release IP Time of Disposition: 13:21 Quality NIHSS Nursing Documentation ED NIHSS nursing documentation: reviewed/agree
[2024-02-22 12:51] VITALS: BP 132/78; PULSE 104; RESP 20; TEMP 38.3; O2SAT 96
[2024-02-22 13:16] LABS: EDCOVIDSCREEN Negative (Negative); EDINFLUASCREEN Negative (Negative); EDINFLUBSCREEN Negative (Negative)
== END 2024-02-22 13:31 | disposition home or self-care (01) ==
PROVIDERS: Emergency Provider Nurse Practitioner Family; PCP Internal Medicine Gastroenterology
DX: J44.1 Chronic obstructive pulmonary disease with (acute) exacerbation (principal); R11.2 Nausea with vomiting, unspecified; F17.210 Nicotine dependence, cigarettes, uncomplicated; Z20.822 Contact with and (suspected) exposure to COVID-19
CPT/HCPCS: 71046; 87426; 87804; 99213; G0463

== ENCOUNTER 2024-04-10 10:03 | Emergency (ER) | payer MEDICARE, MEDICAID, SELFPAY ==
--- NOTE | ~2024-04-10 | XR_ITS ---
EXAMINATION: XR chest 2V DATE: 04/10/2024 10:58 INDICATION: Cough. Congestion. TECHNIQUE: Frontal and lateral views of the chest were obtained. COMPARISON: Chest 2 views 02/22/2024, chest CT 02/08/2023 FINDINGS: There are lucencies in the lungs, consistent with emphysema. There is mild scarring in the upper lobes. There are airspace opacities in right upper lobe. No pleural effusion or pneumothorax. T he heart size is normal. There is a chronic compression fracture of T6. IMPRESSION: 1. Airspace opacities in right upper lobe, consistent with pneumonia. 2. Emphysema. Reviewed, dictated and finalized at location A. ACE COMBUSTION TESTER
[2024-04-10 10:17] VITALS: BP 127/71; PULSE 82; RESP 20; TEMP 36.6; O2SAT 99
[2024-04-10 10:33] LABS: EDINFLUASCREEN Negative (Negative); EDINFLUBSCREEN Negative (Negative)
--- NOTE | 2024-04-10 10:42 | ED.URI ---
HPI - URI/Sore Throat General Chief Complaint: Upper Respiratory Infection Stated Complaint: Flu Symptoms Time Seen by Provider: 04/10/24 10:40 Source: patient, family, RN notes reviewed and old records reviewed Mode of arrival: ambulatory Limitations: no limitations History of Present Illness HPI Narrative: 58 year old male who presents to express care with complaints of chills, cough with chest congestion, increased dyspnea,headache , some nausea and vomiting denies diarrhea since Wednesday. Patient reports that he has increased mucous production of green phlegm. Patient reports that he has used his inhalers this morning and also took some Excedrin. Patient has extensive medical history of liver disease and COPD and he continues to use tobacco 03/04 ppd. Patient states that family member has had influenza. MD elicited complaint: cough, nasal congestion and other (dyspnea and increased chest congestion, nausea and vomiting) Pertinent past history: pneumonia and other (COPD) Onset (ago): day(s) (4) Severity: moderate Description of mucous: green Able to tolerate fluids by mouth: Yes Treatments prior to arrival: other (Excedrin and inhalers this morning) Related Data Home Medications ?Medication ?Instructions ?Recorded ?Confirmed ?Last Taken ?Type gabapentin 800 mg tablet 800 mg PO QID 02/16/20 02/15/23 12/07/23 History tenofovir disoproxil fumarate 300 300 mg PO DAILY 02/16/20 02/15/23 06/16/22 History mg tablet albuterol sulfate 90 mcg/actuation 2 puff inhalation Q4-6H PRN 01/11/21 02/15/23 12/07/23 History aerosol inhaler Shortness Of Breath Or Wheezing tamsulosin 0.4 mg capsule 0.4 mg PO DAILY 01/11/21 02/15/23 12/07/23 History hydrocodone 5 mg-acetaminophen 325 1 tablet PO TID PRN Pain, Moderate 08/13/22 02/15/23 12/07/23 History mg tablet budesonide-formoterol HFA 160 2 puff inhalation DAILY 02/15/23 02/15/23 12/07/23 History mcg-4.5 mcg/actuation aerosol inhaler (Symbicort) fluticasone furoate 200 1 inh inhalation DAILY 02/15/23 02/15/23 12/07/23 History mcg-vilanterol 25 mcg/dose inhalation powder (Breo Ellipta) Allergies Allergy/AdvReac Type Severity Reaction Status Date / Time hornet venom Allergy Unknown Unknown Verified 04/10/24 10:19 strawberry Allergy Unknown Unknown Verified 04/10/24 10:19 ciprofloxacin Allergy Unknown Verified 04/10/24 10:19 fentanyl Allergy Unknown Verified 04/10/24 10:19 metronidazole AdvReac Unknown Nausea And Verified 04/10/24 10:19 Vomiting Review of Systems Review of Systems: CONSTITUTIONAL: Reports malaise, chills, sweats, or fever. EYES: Denies visual changes, redness, or discharge. ENT: Reports rhinorrhea, congestion, sinus pain, no otalgia and no sore throat. CARDIOVASCULAR: Denies chest pain, palpitations, or edema. RESPIRATORY: Reports productive cough.?Reports increased dyspnea. GASTROINTESTINAL: Denies acute abdominal pain, positive for nausea, vomiting, no diarrhea SKIN: Denies rash or itching. MUSCULOSKELETAL: Reports myalgia. NEUROLOGIC: Reports headache. All systems reviewed & are unremarkable except as noted in HPI and below PMFSH Past Medical History Medical History Alcohol abuse Most recent use 10/29/2020 Chronic pain syndrome Hx of peptic ulcer as a child GERD (gastroesophageal reflux disease) History of hepatitis B Hepatocellular carcinoma COPD (chronic obstructive pulmonary disease) Cirrhosis Hepatocellular carcinoma radiation treatment Seizure Hepatic encephalopathy Surgical History Surgical History History of tibial fracture requiring surgical repair. History of cholecystectomy Family History Family History Father Hypertension Cerebrovascular accident Myocardial infarct Sibling Hypertension Sibling Hypertension Father Hypertension Cerebrovascular accident Family history of coronary artery disease Sibling Hypertension Social History Social History Social History: Smokes 1/2 ppd since 17yo. He is trying to quit. Lives at home with his and children. He is a full code. The patient had 7 children. He is on disability. The patient continues to use marijuana gummies. He no longer uses cocaine or other illicit drugs. 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 Alcohol intake: never Alcohol use details: Alcohol use noted 10/29/2020 with etoh level of 24. Substance use: current Substance use type: marijuana Other substance usage details: has not had alcohol in 16 years/ was never a heavy drinker per Last use: no meth/cocaine in 16 years/uses marijuana currently for pain/appetite Lack of Transportation: YES Lack of Food: Sometimes True Current Housing: I Have Housing Concerned About Future Housing: YES Difficulty Paying Gas/Electric Bills: YES Difficulty Paying for Meds: YES Currently Unemployed: YES Education: High School Diploma/GED Difficulty w/ Childcare or Family Care: YES Living arrangements: with family Occupation/Education: other Gender identity (if verbalized by the patient): Male Sexual Orientation (if Verbalized by the Patient): Straight or Heterosexual Spiritual care concerns: No Agree to blood products: Yes Comments At time of signature, agree with nursing past medical, surgical, social and family history. There is no relevant family history pertinent to the presenting complaint Exam Narrative: GENERAL:Chronic ill appearing-, fair-nourished, and in mild acute distress. HEAD: Normocephalic EYES: PERRLA, conjunctivae clear ENT: Nares clear, turbinates edematous and erythematous, clear yellowish discharge. Mucous membranes moist. TM pearly beasley with dull light reflex bilaterally; no tragal tenderness. Oropharynx erythematous without lesions. Tonsils not enlarged and without exudate, no drooling, no hoarseness, no trismus, uvula midline.post nasal drainage noted NECK: Supple. No lymphadenopathy CHEST: decreased breath sound rhonchi right lung landry on auscultation, breath sounds equal. No wheezing,+ rhonchi,no rales, or stridor. No respiratory distress, speaks in full sentences.Productive cough of greenish phlegm, SAO2 99% on room air HEART: Regular rate and rhythm. No murmur heard. SKIN: Warm, dry, no rash. NEURO: Alert and oriented x3. PSYCH: Normal mood and affect Course Course Emergency Course: Patient is aware of diagnosis, understands and agrees to treatment plan.? Anticipatory guidance given.? Patient agrees to follow-up as directed and is aware of reasons to seek care at the emergency department. Portions of this record may have been created with voice recognition software [id number] Call placed to [facility] ED with condition update, VS, chest x-ray findings, PMH reviewed with Ruma HERNANDES with Dr Thurman accepting patient for transfer. Level of Care: Express Care Visit Vital Signs Vital signs: Vital Signs Oxygen Delivery Room Air 04/10/24 10:16 Temperature 36.6 C 04/10/24 10:17 Pulse Rate 82 04/10/24 10:17 Respiratory Rate 20 04/10/24 10:17 Blood Pressure 127/71 04/10/24 10:17 Pulse Oximetry 99 04/10/24 10:17 Oxygen Delivery Room Air 04/10/24 10:16 Reviewed Transfer Transfered to: [facility] Transportation: Other (Private car with refuses ambulance) Transfer rationale: Chronically ill with pneumonia right lung increased dyspnea, needs higher level of care. Accepting physician: Olman Transfer comments: To ED at [facility] for further evaluation accompanied by per private car MDM - URI/Sore Throat MDM Narrative Medical decision making narrative: Differential diagnosis considered: [place] virus, strep pharyngitis, allergic rhinitis, upper respiratory tract infection, sinusitis, rhinosinusitis, nasopharyngitis. viral pharyngitis, otitis media, otitis externa, pneumonia, bronchitis, viral cough syndrome, viral syndrome, and influenza.? Exam findings show no acute concerns or changes; patient is non-toxic appearing and is in no distress.? Patient is appropriate for outpatient treatment and follow-up. Differential Diagnosis Differential diagnosis: Likely upper respiratory infection, viral infection and other (exacerbated of COPD, pneumonia) Medical Records Attestation: I reviewed the patient's medical records. Lab Data Attestation: I reviewed the patient's lab results. Lab results narrative: influenza A negative, Influenza B negative, COVID antigen negative Labs: Lab Results 04/10/24 04/10/24 Range/Units 10:30 11:32 POC Influenza A Ag Negative (Negative) POC Influenza B Ag Negative (Negative) POC SARS CoV-2 Ag Negative (Negative) reviewed Imaging Data Attestation: I personally reviewed and interpreted this imaging study as follows: My impression: emphysema and air space opacity RUL consistent with pneumonia Radiologist's impression: Express Care [place] [id number] [facility] [place] [address] XRay Report Signed Patient: Ronan Baez : 1965 MR#: [id number] Age: 58 Acct:[id number] Loc: [id number] ADM Date: 04/10/24Attending Dr: Ordering Physician: Yandy Baez APRN Date of Service: 04/10/24 Procedure(s): XR chest 2V Accession Number(s): [id number] cc: [employer] ROUNDER PHYSICIAN; Yandy Baez CATTLE DEHORNER~ EXAMINATION: XR chest 2V DATE: 04/10/2024 10:58 INDICATION: Cough. Congestion. TECHNIQUE: Frontal and lateral views of the chest were obtained. COMPARISON: Chest 2 views 02/22/2024, chest CT 02/08/2023 FINDINGS: There are lucencies in the lungs, consistent with emphysema. There is mild scarring in the upper lobes. There are airspace opacities in right upper lobe. No pleural effusion or pneumothorax. The heart size is normal. There is a chronic compression fracture of T6. IMPRESSION: 1. Airspace opacities in right upper lobe, consistent with pneumonia. 2. Emphysema. Reviewed, dictated and finalized at location A. GE HELPER Please be advised this is a medical document. It is intended for lzax-ey-bosa communication. It is written in medical language and may contain unfamiliar abbreviations or verbiage. Medical documents are intended to carry relevant information, facts as evident, and the clinical opinion of the practitioner at the time of the encounter. This report may have been done utilizing a voice recognition system. Attempts have been made to correct errors. However, there may be uncorrected grammatical, spelling, and recognition errors present. The file time of this note does not necessarily represent the time of service. Dictated By: Julien Adams MD 04/10/24 1102 Signed By: <Electronically signed by Julien Adams MD in OV> Critical Care Time Critical Care Time Critical Care Time: No Discharge Plan Discharge Clinical Impression: Right upper lobe pneumonia Qualifiers: Pneumonia type: due to unspecified organism Qualified Code(s): J18.9 - Pneumonia, unspecified organism Patient Disposition: Acute Care Hospital Condition: Serious Patient Language: Hebrew Prescriptions: No Action ondansetron 4 mg tablet,disintegrating 4 mg PO Q6H PRN (Reason: nausea and vomiting) 3 Days Qty: 12 0RF prednisone 20 mg tablet 40 mg PO DAILY 5 Days Qty: 10 0RF doxycycline hyclate 100 mg capsule 100 mg PO BID 7 Days Qty: 14 0RF albuterol sulfate 90 mcg/actuation HFA aerosol inhaler 2 puff inhalation Q4-6H PRN (Reason: shortness of breath or wheezing) 30 Days Qty: 8.5 0RF hydrocodone-acetaminophen 5-325 mg tablet 1 tablet PO TID PRN (Reason: Pain, Moderate) budesonide-formoterol [Symbicort] 160-4.5 mcg/actuation HFA aerosol inhaler 2 puff INHALATION DAILY fluticasone furoate-vilanterol [Breo Ellipta] 200-25 mcg/dose blister with device 1 inh INHALATION DAILY levetiracetam [Keppra] 750 mg tablet 750 mg PO BID Qty: 60 0RF tamsulosin 0.4 mg capsule 0.4 mg PO DAILY albuterol sulfate 90 mcg/actuation HFA aerosol inhaler 2 puff INHALATION Q4-6H PRN (Reason: Shortness Of Breath Or Wheezing) levetiracetam [Keppra] 1,000 mg tablet 2,000 mg PO BID 30 Days Qty: 120 0RF gabapentin 800 mg Tablet 800 mg PO QID tenofovir disoproxil fumarate 300 mg Tablet 300 mg PO DAILY ondansetron 4 mg tablet,disintegrating 4 mg PO Q8H PRN (Reason: nausea and vomiting) Qty: 20 0RF Follow-up/Referrals: PHYSICIAN,WELT EDGE ROUNDER [Primary Care Provider] - Time of Disposition: 11:29 Quality [place] Coma Scale Eyes: Open Verbal: Oriented and Alert Motor: Follows Commands [place] Coma Total Score: 15
[2024-04-10 11:34] LABS: EDCOVIDSCREEN Negative (Negative)
== END 2024-04-10 11:30 | disposition short-term general hospital (02) ==
LOC: EXPGOSH 10:04
PROVIDERS: Emergency Provider Registered Nurse
DX: J18.9 Pneumonia, unspecified organism (principal); Z20.822 Contact with and (suspected) exposure to COVID-19; F17.210 Nicotine dependence, cigarettes, uncomplicated; F12.90 Cannabis use, unspecified, uncomplicated; K21.9 Gastro-esophageal reflux disease without esophagitis; J44.9 Chronic obstructive pulmonary disease, unspecified; K74.60 Unspecified cirrhosis of liver
CPT/HCPCS: 71046; 87426; 87804; 99213; G0463

== ENCOUNTER 2024-04-10 12:11 | Emergency (ER) | payer MEDICARE, MEDICAID, SELFPAY ==
--- OUTSIDE RECORDS SUMMARY | 2024-04-10 12:29 | XMS_ITS | Clinical Summary ---
Author Organization [facility] Address [address] [place] [address] Care Team Providers Care Stitching Machine Operator Name Role Phone Dequan Frye MD Unavailable [phone] Lian Melchor MD Primary Care Provider Allergies Active Allergy Reactions Criticality Noted Date Comments Ciprofloxacin Stomach upset Low Eletriptan Hbr Unknown 08/21/2013 Eletriptan Hbr Unknown 07/20/2022 Fentanyl Delusions,Hallucinat ions ,Agitation,Nausea only High 11/02/2018 Extreme agitation/paradoxical reaction requiring precedex and ICU transfer Fentanyl Delusions,Agitation Medium 07/20/2022 [place] Swollen tongue High 09/20/2018 Throat closes Medications gabapentin (NEURONTIN) 800 mg tabletIndication s:Neuropathic Pain,back pain Take 1 tablet (800 mg total) by mouth 4 (four) times a day 8 Active tamsulosin (FLOMAX) 0.4 mg extended release capsuleIndicatio ns:benign prostatic hyperplasia with lower urinary tract sx Take 1 capsule (0.4 mg total) by mouth nightly 9 Active HYDROcodone-acet aminophen (NORCO) 5-325 mg per tablet Take 1 tablet by mouth 3 (three) times a day as needed 3 Active albuterol HFA (PROVENTIL HFA,VENTOLIN HFA,PROAIR HFA) 90 mcg/actuation inhaler Inhale 2 puffs every 4 (four) hours as needed for wheezing (1st) 1 each 3 3 Active budesonide-formo teroL (SYMBICORT) 160-4.5 mcg/actuation inhaler Inhale 2 puffs 2 (two) times a day Rinse mouth with water after use. Do not swallow. 1 each 3 3 Active levETIRAcetam (KEPPRA) 1,000 mg tablet Take 2 tablets (2,000 mg total) by mouth 2 (two) times a day 120 tablet [address] (PROTONIX) 40 mg EC tablet Take 1 tablet (40 mg total) by mouth daily 28 tablet 4 Active ondansetron (ZOFRAN) 4 mg tablet Take 1 tablet (4 mg total) by mouth every 6 (six) hours 12 tablet 4 Active tenofovir disoproxil fumarate (VIREAD) 300 mg tablet Take 1 tablet (300 mg total) by mouth daily 30 tablet 11 4 Active Active Problems Patient Care Coordination No te Formatting of this note migh t be different from the original. Best number to call is [phone]. Cell phone has been turned off as of 08/17/2019 Problem Noted Date Diagnosed Date Protein-calorie malnutrition, severe (CMS/HCC) 0 11/25/2022 Abdominal pain 11/24/2022 Intractable nausea and vomiting 11/24/2022 Benign prostatic hyperplasia without lower urinary tract symptoms 11/24/2022 Choledocholithiasis 11/24/2022 Hiatal hernia 08/14/2022 Seizure 07/20/2022 Cirrhosis of liver without ascites (CMS/HCC) Overview (06/11/2022): Added automatically from request for surgery [id number] Seizures 12/10/2020 Osteopenia 09/21/2018 Chronic viral hepatitis B 08/31/2018 Overview (08/31/2018): Added automatically from request for surgery [id number] Hepatocellular carcinoma 08/09/2018 Chronic viral hepatitis B wi thout delta agent and without coma 08/09/2018 Nondependent alcohol abuse, in remission 013 Smokes tobacco daily 05/11/2012 Pre-transplant evaluation for liver transplant Emphysema Encounters Date Type Department Care Team Description 04/04/2024 Telephone [facility] Gastroenterology [address] [facility] Medicine 12th [place] [address] [place] [address] Paola Degroot, MANAGER WIND 04/03/2024 Telephone [facility] Gastroenterology [address] [facility] 12th [place] [address] [place] [address] Paola Degroot, MANAGER WIND 03/24/2024 Telephone [facility] Gastroenterology [address] [place] [address] [place] [address] Paola Degroot, [facility] 03/23/2024 Telephone [facility] Gastroenterology [address] [place] [address] [place] [address] Zoya Masterson LPN 01/17/2024 Orders Only [facility] Gastroenterology [address] [facility] 12th [place] [address] [place] [address] Zoya Masterson LPN 01/10/2024 8:40 AM BUSINESS LAW INSTRUCTOR Office Visit [facility] [address] [facility] [address] [place] [address] Staci Spangler MD Chronic viral hepatitis B without delta agent and without coma (HCC) (Primary Dx); Cirrhosis of liver without ascites, unspecified hepatic cirrhosis type (HCC) from Last 3 Months Immunizations Name Administration Dates Next Due Influenza, Quadrivalent, Split, Intramuscular Influenza, Whole 02/16/2006 Pfizer SARS-CoV-2 Monovalent Vaccination (12+ Yrs) PURPLE 06/04/2020 Pneumococcal Polysaccharide PPV23 12/20/2018 Tdap 12/22/2015 Surgical History Surgery Date Site/Laterality Comments ESOPHAGOSCOPY / EGD multiple COLONOSCOPY TIBIA FRACTURE SURGERY 03/01/2016 - 02/28/2017 Left CHOLECYSTECTOMY 03/01/2004 - 02/28/2005 EMBOLIZATION 03/01/2012 - 02/28/2013 chemo EMBOLIZATION ORGAN ISCHEMIA OR INFARCTION 11/02/2018 N/A LIVER BIOPSY 03/01/2003 - 02/29/2004 RF ABLATION LIVER 01/16/2019 N/A REMOVE TUNNELED LINE 04/15/2022 Left Medical History Medical History Date Comments Tobacco abuse counseling Encount er for smoking cessation counseling - (Added by [facility]) History of chemotherapy 2013 liver ca ncer Hepatitis B Low back pain COPD (chronic obstructive pu lmonary disease) (HCC) Lung nodule right Herpes Liver cancer (HCC) Acid reflux BPH (benign prostatic hyperplasia) Kidney stones Colon polyp Family History Medical History Relation Name Comments Hypertension Brother Family history of hypertension - (Added by [facility]) Heart attack Father Family history of myocardial infarction - (Added by [facility]) Anesthesia problems Neg Hx Colon cancer Neg Hx Epilepsy Neg Hx Relation Name Status Comments Brother Father Social History Tobacco Use Types Packs/Day Years Used Date Smoking Tobacco: Every Day Cigarettes 1.5 42.1 Started: 1982 Passive Smoke Exposure: Current Smokeless Tobacco: Never Tobacco Cessation:Ready to Q uit: Not Asked; Counseling Given: Not Answered Comments:trying to quit-smoking Alcohol Use Standard Drinks/Week Comments Not Currently 0 (1 standard drink = 0.6 oz pur e alcohol) denies AUDIT-C Answer Date Recorded Q1: How often do you have a drink containing alcohol? Never 07/10/2022 Q2: How many drinks containi ng alcohol do you have on a typical day when you are drinking? Patient does not drink Q3: How often do you have si x or more drinks on one occasion? Never 07/10/2022 Personal Safety Answer Date Recorded Have you ever been in or are you currently in a harmful physical or emotional relationship or is someone making you feel afraid or unsafe? 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 Not on file Not on file Obstetrics History Last Filed Vital Signs Vital Sign Reading Time Taken Comments Blood Pressure 120/71 01/10/2024 8:28 AM BUSINESS LAW INSTRUCTOR Pulse 87 01/10/2024 8:28 AM BUSINESS LAW INSTRUCTOR Temperature 37.2 C (99 F) 01/10/2024 8:28 AM BUSINESS LAW INSTRUCTOR Respiratory Rate 18 03/02/2023 5:30 AM BUSINESS LAW INSTRUCTOR Oxygen Saturation 99% 01/10/2024 8:28 AM BUSINESS LAW INSTRUCTOR Inhaled Oxygen Concentration - - Weight 55.3 kg (122 lb) 01/10/2024 8:28 AM BUSINESS LAW INSTRUCTOR Height 175.3 cm (5' 9 ) 01/10/2024 8:28 AM BUSINESS LAW INSTRUCTOR Body Mass Index 18.02 01/10/2024 8:28 AM BUSINESS LAW INSTRUCTOR Plan of Treatment Scheduled Procedures Name Priority Associated Diagnoses Date/Ti me ESOPHAGOGASTRODUODENOSCOPY Hiatal hernia TRANSPLANT LIVER Chronic viral hepatitis B (CMS/HCC) Health Maintenance Due Date Last Done Comments Depression Screening 1965 Regular Well Visit/Exam 18-64 09/13/1981 Lung Cancer Screening 09/13/2013 Zoster Vaccine (1 of 2) 09/13/2013 Pneumococcal vaccine <65 (2 of 2 - PCV) 12/21/2019 1 Prostate Cancer Screening-PSA 09/20/2020 09/20/2018 Covid-19 Vaccine (2 - season) 10/31/202307/2020 Influenza Vaccine (#1) 2023 12/20/2018, 2005 Colon Cancer Screening-Colonoscopy 05/01/20252015 DTaP/Tdap/Td Vaccine (2 - Td or Tdap) 12/21/2025 Colon Cancer Screening-CT Colonography Discontinued Colon Cancer Screening-DNA Stool Discontinued 05/02/19 16 Colon Cancer Screening-FIT Discontinued 05/02/2015 Colon Cancer Screening-Sigmoidoscopy Discontinued 04/2015 Hepatitis C Screening Completed 09/20/2018, 013 Goals Goal Patient Goal Type Associated Problems Recent Progress Patient-Stated? Author Med Mgmt Goal - Patient will understand importance of following medication regimen and will take appropriate steps to maintain regimen ACO Care Management Stella Goodwin Note: Problem: Medication management Interventions: - Assess barriers to medication adherence: Provide coordination of care, education and resources to address these barriers. Include SW in patient's plan of care for resources if needed. - Instruct patient to: Take each medication each day at the times indicated by using a system (list, pill box, etc.). Do not allow prescriptions to or bottles to become empty before requesting refills. Bring all medications to each office visit. Contact physician or CM if they feel they are having side effects from medications (rather than stopping them without telling anyone). Medical Devices Implanted Type Area Supervisor Word Processing Device Identifier Shelf Expiration Date Model / Serial / Lot Lt Lower Leg Ortho Hardware-01/16/20 18 Implanted: 018 (Quantity not on file) Left: Leg [employer] S220gh Embosphere Prefill Saline Syringe Compressible Nonaggregate - [id number] Implanted:Qty: 1 on 11/02/2018 at [facility] [employer] 05/29/2021 [id number] / / [id number] Procedures Procedure Name Priority Date/Time Associated Diagnosis Comments HEPATITIS C ANTIBODY Routine 09/20/2018 7:23 AM CDT Pre-transplant evaluation for liver transplant Chronic hepatitis B (CMS/HCC) Hepatocellular carcinoma (CMS/HCC) PSA SCREEN Routine 09/20/2018 7:23 AM CDT Pre-transplant evaluation for liver transplant Chronic hepatitis B (CMS/HCC) Hepatocellular carcinoma (CMS/HCC) COLONOSCOPY REPORT 05/02/2015 from Last 3 Months or Most Recently Relevant to Health Maintenance Results * PSA screen (09/20/2018 7:23 AM CDT) PSA-Total 0.19 <=3.90 ng/mL [facility] Comment: Interpretive Data AGE SEX REFERENCE INTERVAL 0 minutes-150 years Female None 0 minutes-49 years Male None 50-59 years Male 0-3.90 60-69 years Male 0-5.40 70-79 years Male 0-6.20 80-150 years Male 0-6.20 Current interpretive data last revised 2017. Blood specimen (specimen) 09/20/2018 7:23 AM CDT 09/20/2018 8:16 AM CDT us Dequan Frye MD LAB BLOOD ORDERABLES Fi nal Result [facility] Department [place] [address] * Hepatitis C antibody (09/20/2018 7:23 AM CDT) Hep C Ab Nonreactive Nonreactive [facility] Comment: Interpretive Data Positive results should be confirmed by a molecular method. If positive, a second separately collected sample should be submitted for Hepatitis C Virus (HCV) RNA Detection and Quantitation by Real-Time Reverse Traffic Recorder-PCR (RT-PCR). Current interpretive data was last revised on 2016. Blood specimen (specimen) 09/20/2018 7:23 AM CDT 09/20/2018 8:15 AM CDT Dequan Frye MD LAB MICROBIOLOGY - GENE RAL ORDERABLES Edited Result - Final [facility] Department [place] [address] * COLONOSCOPY REPORT (05/02/2015) Anatomical Region Laterality Modality Other Narrative 05/02/2015 Ordered by an unspecified provider. Historical Provider GI PROCEDURE ORDERABLES F inal Result from Last 3 Months or Most Recently Relevant to Health Maintenance [place] [address] IDPA MEDICARE SOLUTIONS [facility] MEDICARE Address: [facility] [address] [place] [address] [facility] MEDICARE SOLUTIONS [facility] MEDICARE Address: [id number] [place] [address] MEDICARE SOLUTIONS [facility] MEDICARE SOLUTIONS MEDICARE SOLUTIONS TRANSPLANT [employer]UM MEDICARE RISK IDPA [facility] MDCR HMO REF [facility] MEDICARE Address: [address] [address] [place] [address] [facility] MDCR HMO REF Advance Directives For more information, please contact: [phone] * Full Code (Latest Code Status on File) Date Activated Date Inactivated Comments 11/24/2022 1:58 PM 11/25/2022 2:41 PM * Full Code Date Activated Date Inactivated Comments 10/03/2022 9:44 AM 10/04/2022 4:02 PM * Full Code Date Activated Date Inactivated Comments 07/21/2022 1:21 PM 07/22/2022 1:37 PM * Full Code Date Activated Date Inactivated Comments 07/10/2022 1:37 PM 07/10/2022 7:42 PM * Full Code Date Activated Date Inactivated Comments 01/16/2019 3:54 PM 01/17/2019 2:15 PM Care Teams Stitching Machine Operator Relationship Specialty Start Date End Date Lian Melchor MD [address] [address] PCP - General Gastroenterology 11/13/22 Dequan Frye MD Referring Physician Transplant Hepatology 08/19/18
--- OUTSIDE RECORDS SUMMARY | 2024-04-10 12:29 | XMS_ITS | Encounter Summary ---
Author Organization [facility] Address [address] [place] [address] Care Team Providers Care Parking Officer Name Role Phone Jazmin Shankar MD Primary Care Provider [phone] Cedrick Barriga MD Primary Care Provider [phone] Unknown, Notinfile Primary Care Provider Unavail able Cedrick Barriga MD Primary Care Provider [phone] Cedrick Barriga MD Unavailable [phone] Olya Corcoran RN Unavailable [phone] Dequan Frye MD Unavailable [phone] Lian Melchor MD Primary Care Provider Encounter Details Date Type Department Care Team (Late st Contact Info) Description 04/10/2020 Telephone [facility] Radiology [address] [facility] [place] [address] Fabian Almaguer MD [address] [place] [address] Social History Tobacco Use Types Packs/Day Years Used Date Smoking Tobacco: Every Day Cigarettes 0.2 42.1 Started: 1984 Smokeless Tobacco: Never Comments:trying to quit-smok ing Alcohol Use Standard Drinks/Week Comments Not Currently 0 (1 standard drink = 0.6 oz pur e alcohol) denies Sex and Gender Information Value Date Recorded Sex Assigned at Not on file Legal Sex Male 2:43 AM GANDY DANCER Gender Identity Not on file Sexual Orientation Not on file documented as of this encounter Plan of Treatment Scheduled Procedures Name Priority Associated Diagnoses Date/Ti me ESOPHAGOGASTRODUODENOSCOPY Hiatal hernia TRANSPLANT LIVER Chronic viral hepatitis B (CMS/HCC) documented as of this encounter Goals Goal Patient Goal Type Associated Problems [...] (rather than stopping them without telling anyone). documented as of this encounter Visit Diagnoses Not on filedocumented in this encounter Additional Health Concerns Infection Onset Date Last Indicated Resolved Time COVID: Suspected 11/13/2022 11/13/2022 11/13/2022 3:44 PM CDT Parainfluenza, droplet 11/13/2022 11/13/202211/20 3:07 AM CDT COVID: Suspected 11/24/2022 11/24/2022 11/24/2022 6:42 PM CDT COVID: Suspected 03/01/2023 03/01/2023 03/01/2023 10:12 PM GANDY DANCER RSV, droplet 03/01/2023 03/01/2023 03/08/2023 3:05 AM GANDY DANCER documented as of this encounter Care Teams Parking Officer Relationship Specialty Start Date End Date Jazmin Shankar MD PCP - General Family Medicine 08/09/18 12/23/20 Cedrick Barriga MD [address] [place] [address] PCP - General 12/24/20 07/19/22 Unknown, Notinfile PCP - General 07/20/22 07/20/22 Cedrick Barriga MD [address] [place] [address] PCP - General Family Medicine 07/21/22 11/12/22 Lian Melchor MD [address] [address] PCP - General Gastroenterology 11/13/22 Cedrick Barriga MD [address] [place] [address] 07/20/22 08/11/22 Olya Corcoran, RN Trucking Contractor 08/10/1812/09 Dequan Frye MD Referring Physician Transplant Hepatology 08/19/18 documented as of this encounter
--- OUTSIDE RECORDS SUMMARY | 2024-04-10 12:29 | XMS_ITS | Referral Summary ---
Author Organization [facility] Address [address] [place] [address] Care Team Providers Care Lifestyle Director Name Role Phone Dequan Frye MD Unavailable [phone] Lian Melchor MD Primary Care Provider Encounters Date Type Department Care Team Description 04/04/2024 Telephone [facility] Gastroenterology [address] [facility] 12th [place] [address] [place] [address] Paola Degroot, UNDRAPED ARTIST MODEL 04/03/2024 Telephone [facility] Gastroenterology [address] [facility] 12th [place] [address] [place] [address] Paola Degroot, UNDRAPED ARTIST MODEL 03/24/2024 Telephone [facility] Gastroenterology [address] [facility] [address]th [place] [address] [place] [address] Paola Degroot, UNDRAPED ARTIST MODEL 03/23/2024 Telephone [facility] Gastroenterology [address] [facility] 12th [place] [address] [place] [address] Zoya Masterson LPN 01/17/2024 Orders Only [facility] Gastroenterology [address] [facility] [address]th [place] [address] [place] [address] Zoya Masterson LPN 01/10/2024 8:40 AM BOOK SOLICITOR Office Visit [facility] Gastroenterology [address] [place] [address] Staci Spangler MD Chronic viral hepatitis B without delta agent and without coma (HCC) (Primary Dx); Cirrhosis of liver without ascites, unspecified hepatic cirrhosis type (HCC) from Last 3 Months Allergies Active Allergy Reactions Criticality Noted Date Comments Ciprofloxacin Stomach upset Low Eletriptan Hbr Unknown 08/21/2013 Eletriptan Hbr Unknown 07/20/2022 Fentanyl Delusions,Hallucinat ions ,Agitation,Nausea only High 11/02/2018 Extreme agitation/paradoxical reaction requiring precedex and ICU transfer Fentanyl Delusions,Agitation Medium 07/20/2022 [place] Swollen tongue High 09/20/2018 Throat closes Medications [...] the original. Best number to call is [phone]. Cell phone has been turned off as of 08/17/2019 Problem Noted Date Diagnosed Date Protein-calorie malnutrition, severe (CMS/HCC) 0 11/25/2022 Abdominal pain 11/24/2022 Intractable nausea and vomiting 11/24/2022 Benign prostatic hyperplasia without lower urinary tract symptoms 11/24/2022 Choledocholithiasis 11/24/2022 Hiatal hernia 08/14/2022 Seizure 07/20/2022 Cirrhosis of liver without ascites (CMS/HCC) Overview (06/11/2022): Added automatically from request for surgery [id number] Seizures 12/10/2020 Osteopenia 09/21/2018 Chronic viral hepatitis B 08/31/2018 Overview (08/31/2018): Added automatically from request for surgery [id number] Hepatocellular carcinoma 08/09/2018 Chronic viral hepatitis B wi thout delta agent and without coma 08/09/2018 Nondependent alcohol abuse, in remission 013 Smokes tobacco daily 05/11/2012 Pre-transplant evaluation for liver transplant Emphysema Immunizations Name Administration Dates Next Due Influenza, Quadrivalent, Split, Intramuscular Influenza, Whole 02/16/2006 Pfizer SARS-CoV-2 Monovalent Vaccination (12+ Yrs) PURPLE 06/04/2020 Pneumococcal Polysaccharide PPV23 12/20/2018 Tdap 12/22/2015 Social History Tobacco Use Types Packs/Day Years [...] on file Legal Sex Male 2:43 AM BOOK SOLICITOR Gender Identity Not on file Sexual Orientation Not on file 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 Not on file Not on file Last Filed Vital Signs Vital Sign Reading Time Taken Comments Blood Pressure 120/71 01/10/2024 8:28 AM BOOK SOLICITOR Pulse 87 01/10/2024 8:28 AM BOOK SOLICITOR Temperature 37.2 C (99 F) 01/10/2024 8:28 AM BOOK SOLICITOR Respiratory Rate 18 03/02/2023 5:30 AM BOOK SOLICITOR Oxygen Saturation 99% 01/10/2024 8:28 AM BOOK SOLICITOR Inhaled Oxygen Concentration - - Weight 55.3 kg (122 lb) 01/10/2024 8:28 AM BOOK SOLICITOR Height 175.3 cm (5' 9 ) 01/10/2024 8:28 AM BOOK SOLICITOR Body Mass Index 18.02 01/10/2024 8:28 AM BOOK SOLICITOR Plan of Treatment Scheduled Procedures Name Priority Associated Diagnoses Date/Ti az ESOPHAGOGASTRODUODENOSCOPY Hiatal hernia TRANSPLANT LIVER Chronic viral hepatitis B (CMS/HCC) Goals Goal Patient Goal Type Associated Problems [...] telling anyone). Medical Devices Implanted Type Area Maintenance Helper Device Identifier Shelf Expiration Date Model / Serial / Lot Lt Lower Leg Ortho Hardware-01/16/20 18 Implanted: 018 (Quantity not on file) Left: Leg [employer] S220gh Embosphere Prefill Saline Syringe Compressible Nonaggregate - [id number] Implanted:Qty: 1 on 11/02/[address] [facility] [employer] 05/29/2021 [id number] / / [id number] Procedures Procedure Name Priority Date/Time Associated Diagnosis [...] AM CDT) PSA-Total 0.19 <=3.90 ng/mL [facility] Comment: Interpretive Data AGE SEX REFERENCE INTERVAL 0 minutes-150 years Female None 0 minutes-49 years Male None 50-59 years Male 0-3.90 60-69 years Male 0-5.40 70-79 years Male 0-6.20 80-150 years Male 0-6.20 Current interpretive data last revised 2017. Blood specimen (specimen) 09/20/2018 7:23 AM CDT 09/20/2018 8:16 AM CDT us Dequan Frye MD LAB BLOOD ORDERABLES Fi nal Result [facility] [place] [address] * Hepatitis C antibody (09/20/2018 7:23 AM CDT) Hep C Ab Nonreactive Nonreactive [facility] Comment: Interpretive Data Positive results should be confirmed by a molecular method. If positive, a second separately collected sample should be submitted for Hepatitis C Virus (HCV) RNA Detection and Quantitation by Real-Time Reverse Chassis Driver-PCR (RT-PCR). Current interpretive data was last revised on 2016. Blood specimen (specimen) 09/20/2018 7:23 AM CDT 09/20/2018 8:15 AM CDT Dequan Frye MD LAB MICROBIOLOGY - GENE [facility] ORDERABLES Edited Result - Final Performing Organization Address [facility] de Phone Number [facility] [place] [address] * COLONOSCOPY REPORT (05/02/2015) Anatomical Region Laterality Modality Other Narrative 05/02/2015 Ordered by an unspecified provider. Historical Provider GI PROCEDURE ORDERABLES F inal Result from Last 3 Months or Most Recently Relevant to Health [place] [address] [place] [address] IDPA MEDICARE SOLUTIONS [facility] MEDICARE SOLUTIONS MEDICARE SOLUTIONS IDPA MEDICARE SOLUTIONS MEDICARE SOLUTIONS TRANSPLANT [employer] MEDICARE RISK IDPA [facility] MDCR HMO REF [facility] H[facility] REF Advance Directives For more information, please contact: [phone] * Full Code (Latest Code Status on [...] 3:54 PM 01/17/2019 2:15 PM Care Teams Lifestyle Director Relationship Specialty Start Date End Date Lian Melchor MD [address] [address] PCP - General Gastroenterology 11/13/22 Dequan Frye MD Referring Physician Transplant Hepatology 08/19/18
--- OUTSIDE RECORDS SUMMARY | 2024-04-10 12:29 | XMS_ITS ---
Author Organization [facility] Address [address] [place] [address] Care Team Providers Care Compressor Service Technician Name Role Phone Dequan Frye MD Unavailable [phone] Lian Melchor MD Primary Care Provider Active Problems Patient Care Coordination No te Formatting of this note migh t be different from the original. Best number to call is [phone]. Cell phone has been turned off as of 08/17/2019 Problem Noted Date Diagnosed Date Protein-calorie malnutrition, severe (CMS/HCC) 0 11/25/2022 Abdominal pain 11/24/2022 Intractable nausea and vomiting 11/24/2022 Benign prostatic hyperplasia without lower urinary tract symptoms 11/24/2022 Choledocholithiasis 11/24/2022 Hiatal hernia 08/14/2022 Seizure 07/20/2022 Cirrhosis of liver without ascites (CMS/HCC) Overview (06/11/2022): Added automatically from request for surgery [id number] Seizures 12/10/2020 Osteopenia 09/21/2018 Chronic viral hepatitis B 08/31/2018 Overview (08/31/2018): Added automatically from request for surgery [id number] Hepatocellular carcinoma 08/09/2018 Chronic viral hepatitis B wi thout delta agent and without coma 08/09/2018 Nondependent alcohol abuse, in remission 013 Smokes tobacco daily 05/11/2012 Pre-transplant evaluation for liver transplant Emphysema Current Oncology Plans No current plan information found. Past Plans No past plan information found. Radiation Treatments * No radiation treatments are documented [facility]. Treatments may have been administered in another system. Lifetime Dose Tracking * Chemical Lifetime Dose Automatic Entry Manual Entr y Fluoro Time 20.633 minutes 20.633 minutes 0 minutes Air kerma at the reference point (Ka,r) 327 mGy 3 27 mGy 0 mGy DLP 3,581 mGycm 3,581 mGycm 0 mGycm
--- OUTSIDE RECORDS SUMMARY | 2024-04-10 12:29 | XMS_ITS | Encounter Summary ---
Author Organization [facility] Address [address] [place] [address] Phone Care Team Providers Care Road Crossing Guard Name Role Phone Cedrick Barriga MD Primary Care Provider [phone] Unknown, Notinfile Primary Care Provider Unavail able Cedrick Barriga MD Primary Care Provider [phone] Cedrick Barriga MD Unavailable [phone] Dequan Frye MD Unavailable [phone] Lian Melchor MD Primary Care Provider Encounter Details Date Type Department Care Team (Late st Contact Info) Description 04/01/2022 Documentation [facility] Gastroenterology [address] [facility] Advanced Medicine 12th [place] [address] [place] [address] Zoya Masterson LPN Social History Tobacco Use Types Packs/Day Years Used Date Smoking Tobacco: Every Day Cigarettes 0.2 42.1 Started: 1984 Smokeless Tobacco: Never Comments:trying to quit-smok ing Alcohol Use Standard Drinks/Week Comments Not Currently 0 (1 standard drink = 0.6 oz pur e alcohol) denies AUDIT-C Answer Date Recorded Q1: How often do you have a drink containing alc ohol? 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 Not on file Not on file documented as of this [...] COVID: Suspected 03/01/2023 03/01/2023 03/01/2023 10:12 PM PEDIATRIC PHYSIATRIST RSV, droplet 03/01/2023 03/01/2023 03/08/2023 3:05 AM PEDIATRIC PHYSIATRIST documented as of this encounter Care Teams Road Crossing Guard Relationship Specialty Start Date End Date Cedrick Barriga MD [address] [place] [address] PCP - General 12/24/20 07/19/22 Unknown, Notinfile PCP - General 07/20/22 07/20/22 Cedrick Barriga MD [address] [place] [address] PCP - General Family Medicine 07/21/22 11/12/22 Lian Melchor MD [address] [place] [address] PCP - General Gastroenterology 11/13/22 Cedrick Barriga MD [address] [place] [address] 07/20/22 08/11/22 Dequan Frye MD Referring Physician Transplant Hepatology 08/19/18 documented as of this encounter
--- OUTSIDE RECORDS SUMMARY | 2024-04-10 12:29 | XMS_ITS | Encounter Summary ---
Author Organization [facility] Address [address] [place] [address] Phone Care Team Providers Care Axle Polisher Name Role Phone Dequan Frye MD Unavailable [phone] Lian Melchor MD Primary Care Provider Encounter Details Date Type Department Care Team (Late st Contact Info) Description 11/27/[address] [facility] Gastroenterology [address] [facility] 12th [place] [address] [place] [address] Zoya Masterson LPN Social History Tobacco Use Types Packs/Day Years Used Date Smoking Tobacco: Every Day Cigarettes 1.5 42.1 Started: 1984 Passive Smoke Exposure: Current Smokeless Tobacco: Never Comments:trying to quit-smok ing [...] more drinks on one occasion? Never 07/10/2022 Sex and Gender Information Value Date Recorded Sex Assigned at Not on file Legal Sex Male 2:43 AM POSTAL WORKER Gender Identity Not on file Sexual Orientation [...] Date Last Indicated Resolved Time COVID: Suspected 03/01/2023 03/01/2023 03/01/2023 10:12 PM POSTAL WORKER RSV, droplet 03/01/2023 03/01/2023 03/08/2023 3:05 AM POSTAL WORKER documented as of this encounter Care Teams Axle Polisher Relationship Specialty Start Date End Date Lian Melchor MD [address] [place] [address] PCP - General Gastroenterology 11/13/22 Dequan Frye MD Referring Physician Transplant Hepatology 08/19/18 documented as of this encounter
--- OUTSIDE RECORDS SUMMARY | 2024-04-10 12:29 | XMS_ITS | Encounter Summary ---
Author Organization [facility] Address [address] [place] [address] Care Team Providers Care Stationary Steam Engineer Name Role Phone Jazmin Shankar MD Primary Care Provider [phone] Cedrick Barriga MD Primary Care Provider [phone] Unknown, Notinfile Primary Care Provider Unavail able Cedrick Barriga MD Primary Care Provider [phone] Cedrick Barriga MD Unavailable [phone] Olya Corcoran RN Unavailable [phone] Dequan Frye MD Unavailable [phone] Melissa Schumacher RN Unavailable Lian Melchor MD Primary Care Provider Encounter Details Date Type Department Care Team (Late st Contact Info) Description 09/15/2019 Telephone [facility] [place], [place] [id number] Piotr Trujillo MD [address] [place], [place] [id number] Social History Tobacco Use Types Packs/Day Years Used Date Smoking Tobacco: Every Day Cigarettes 0.2 42.1 Started: 1984 Smokeless Tobacco: Never Comments:trying to quit-smok ing Alcohol Use Standard Drinks/Week Comments Not Currently 0 (1 standard drink = 0.6 oz pur e alcohol) denies Sex and Gender Information Value Date Recorded Sex Assigned at Not on file Legal Sex Male 2:43 AM REHAB TRAINER Gender Identity Not on file Sexual Orientation [...] COVID: Suspected 03/01/2023 03/01/2023 03/01/2023 10:12 PM REHAB TRAINER RSV, droplet 03/01/2023 03/01/2023 03/08/2023 3:05 AM REHAB TRAINER documented as of this encounter Care Teams Stationary Steam Engineer Relationship Specialty Start Date End Date Jazmin Shankar MD PCP - General Family Medicine 6/11/19 10/25/21 Cedrick Barriga MD [address] [place] [address] PCP - General 12/24/20 07/19/22 Unknown, Notinfile PCP - General 07/20/22 07/20/22 Cedrick Barriga MD [address] [place] [address] PCP - General Family Medicine 07/21/22 11/12/22 Lian Melchor MD [address] [place] [address] PCP - General Gastroenterology 11/13/22 Cedrick Barriga MD [address] [place] [address] 07/20/22 08/11/22 Olya Corcoran RN Automation Software Engineer 08/10/1812/09 Dequan Frye MD Referring Physician Transplant Hepatology 08/19/18 Melissa Schumacher RN [address] [address] Automation Software Engineer 01/29/20 documented as of this encounter
--- OUTSIDE RECORDS SUMMARY | 2024-04-10 12:29 | XMS_ITS | Encounter Summary ---
Author Organization [facility] Address [address] [place] [address] Phone Care Team Providers Care Relationship Counselor Name Role Phone Dequan Frye MD Unavailable [phone] Lian Melchor MD Primary Care Provider Encounter Details Date Type Department Care Team (Late st Contact Info) Description 12/09/2023 Telephone [facility] Gastroenterology [address] [facility] 12th [place] [address] [place] [address] Zoya Masterson LPN Social History [...] on file Legal Sex Male 2:43 AM ACADEMIC SPECIALIST Gender Identity Not on file Sexual Orientation [...] steps to maintain regimen ACO Care Management No Stella Dos Santos Note: Problem: Medication management Interventions: - Assess [...] Diagnoses Not on filedocumented in this encounter Care Teams Relationship Counselor Relationship Specialty Start Date End Date Lian Melchor MD [address] [address] PCP - General Gastroenterology 11/13/22 Dequan Frye MD Referring Physician Transplant Hepatology 08/19/18 documented as of this encounter
--- OUTSIDE RECORDS SUMMARY | 2024-04-10 12:29 | XMS_ITS | Encounter Summary ---
Author Organization [facility] Address [address] [place] [address] Care Team Providers Care Portfolio Lead Name Role Phone Jazmin Shankar MD Primary Care Provider [phone] Cedrick Barriga MD Primary Care Provider [phone] Unknown, Notinfile Primary Care Provider Unavail able Cedrick Barriga MD Primary Care Provider [phone] Cedrick Barriga MD Unavailable [phone] Olya Corcoran RN Unavailable [phone] Dequan Frye MD Unavailable [phone] Lian Melchor MD Primary Care Provider Encounter Details Date Type Department Care Team (Late st Contact Info) Description 06/24/2020 Telephone [facility] [address] [place] [address] Rj Johnson, RT Social History Tobacco Use Types Packs/Day Years Used Date Smoking Tobacco: Every Day Cigarettes 0.2 42.1 Started: 1984 Smokeless Tobacco: Never Comments:trying to quit-smok ing Alcohol Use Standard Drinks/Week Comments Not Currently 0 (1 standard drink = 0.6 oz pur e alcohol) denies Sex and Gender Information Value Date Recorded Sex Assigned at Not on file Legal Sex Male 2:43 AM FACULTY DEAN Gender Identity Not on file Sexual Orientation [...] COVID: Suspected 03/01/2023 03/01/2023 03/01/2023 10:12 PM FACULTY DEAN RSV, droplet 03/01/2023 03/01/2023 03/08/2023 3:05 AM FACULTY DEAN documented as of this encounter Care Teams Portfolio Lead Relationship Specialty Start Date End Date Jazmin Shankar MD PCP - General Family Medicine 08/09/18 12/23/20 Cedrick Barriga MD [address] [place] [address] PCP - General 12/24/20 07/19/22 Unknown, Notinfile PCP - General 07/20/22 07/20/22 Cedrick Barriga MD [address] [place] [address] PCP - General Family Medicine 07/21/22 11/12/22 Lian Melchor MD [address] [place] [address] PCP - General Gastroenterology 11/13/22 Cedrick Barriga MD [address] [place] [address] 07/20/22 08/11/22 Olya Corcoran RN Tyre Retreader 08/10/1812/09 Dequan Frye MD Referring Physician Transplant Hepatology 08/19/18 documented as of this encounter
[2024-04-10 12:42] VITALS: BP 147/76; PULSE 82; RESP 20; TEMP 36.8; O2SAT 96
--- NOTE | 2024-04-10 13:21 | PC.NURSE ---
Pt states they are going to go to [place] due to the wait time. Pt is A&Ox4 and agrees he does not want to wait. Pt ambulated out in NAD.
--- OUTSIDE RECORDS SUMMARY | 2024-04-10 13:37 | XMS_ITS | Clinical Summary ---
Author Organization [facility] Address [address] [place] [address] Care Team Providers Care Product Delivery Specialist Name Role Phone Dequan Frye MD Unavailable [phone] Lian Melchor MD Primary Care Provider Allergies Active Allergy Reactions Criticality Noted Date Comments Ciprofloxacin Stomach upset Low Eletriptan Hbr Unknown 08/21/2013 Eletriptan Hbr Unknown 07/20/2022 Fentanyl Delusions,Hallucinat ions ,Agitation,Nausea only High 11/02/2018 Extreme agitation/paradoxical reaction requiring precedex and ICU transfer Fentanyl Delusions,Agitation Medium 07/20/2022 [place] Swollen tongue High 09/20/2018 Throat closes Medications [...] the original. Best number to call is [phone]. Cell phone has been turned off as of 08/17/2019 Problem Noted Date Diagnosed Date Protein-calorie malnutrition, severe (CMS/HCC) 0 11/25/2022 Abdominal pain 11/24/2022 Intractable nausea and vomiting 11/24/2022 Benign prostatic hyperplasia without lower urinary tract symptoms 11/24/2022 Choledocholithiasis 11/24/2022 Hiatal hernia 08/14/2022 Seizure 07/20/2022 Cirrhosis of liver without ascites (CMS/HCC) Overview (06/11/2022): Added automatically from request for surgery [id number] Seizures 12/10/2020 Osteopenia 09/21/2018 Chronic viral hepatitis B 08/31/2018 Overview (08/31/2018): Added automatically from request for surgery [id number] Hepatocellular carcinoma 08/09/2018 Chronic viral hepatitis B wi thout delta agent and without coma 08/09/2018 Nondependent alcohol abuse, in remission 013 Smokes tobacco daily 05/11/2012 Pre-transplant evaluation for liver transplant Emphysema Encounters Date Type Department Care Team Description 04/04/2024 Telephone [facility] Gastroenterology [address] [facility] Medicine 12th [place] [address] [place] [address] Paola Degroot, ROLLER PRINTING SUPERVISOR 04/03/2024 Telephone [facility] Gastroenterology [address] [facility] 12th [place] [address] [place] [address] Paola Degroot, ROLLER PRINTING SUPERVISOR 03/24/2024 Telephone [facility] Gastroenterology [address] [place] [address] [place] [address] Paola Degroot, [facility] 03/23/2024 Telephone [facility] Gastroenterology [address] [place] [address] [place] [address] Zoya Masterson LPN 01/17/2024 Orders Only [facility] Gastroenterology [address] [facility] 12th [place] [address] [place] [address] Zoya Masterson LPN 01/10/2024 8:40 AM GLOVE PARTS CUTTER Office Visit [facility] Gastroenterology [address] [facility] 2nd [address] [place] [address] Staci Spangler MD Chronic viral hepatitis B [...] on file Legal Sex Male 2:43 AM GLOVE PARTS CUTTER Gender Identity Not on file Sexual Orientation Not on file 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 Not on file Not on file Obstetrics History Last Filed Vital Signs Vital Sign Reading Time Taken Comments Blood Pressure 120/71 01/10/2024 8:28 AM GLOVE PARTS CUTTER Pulse 87 01/10/2024 8:28 AM GLOVE PARTS CUTTER Temperature 37.2 C (99 F) 01/10/2024 8:28 AM GLOVE PARTS CUTTER Respiratory Rate 18 03/02/2023 5:30 AM GLOVE PARTS CUTTER Oxygen Saturation 99% 01/10/2024 8:28 AM GLOVE PARTS CUTTER Inhaled Oxygen Concentration - - Weight 55.3 kg (122 lb) 01/10/2024 8:28 AM GLOVE PARTS CUTTER Height 175.3 cm (5' 9 ) 01/10/2024 8:28 AM GLOVE PARTS CUTTER Body Mass Index 18.02 01/10/2024 8:28 AM GLOVE PARTS CUTTER Plan of Treatment Scheduled Procedures Name Priority [...] telling anyone). Medical Devices Implanted Type Area Molded Frames Assembler Device Identifier Shelf Expiration Date Model / Serial / Lot Lt Lower Leg Ortho Hardware-01/16/20 18 Implanted: 018 (Quantity not on file) Left: Leg 64 Pixels [id number] Embosphere Prefill Saline Syringe Compressible Nonaggregate - [id number] Implanted:Qty: 1 on 11/02/2018 at [facility] 64 Pixels 05/29/2021 [id number] / / [id number] Procedures Procedure Name Priority Date/Time Associated Diagnosis [...] ORDERABLES Fi nal Result C[facility]IO [facility] Department [place] [address] * Hepatitis C antibody (09/20/2018 7:23 AM CDT) Hep C Ab Nonreactive Nonreactive [facility] Comment: Interpretive Data Positive results should be confirmed by a molecular method. If positive, a second separately collected sample should be submitted for Hepatitis C Virus (HCV) RNA Detection and Quantitation by Real-Time Reverse Photography Teacher-PCR (RT-PCR). Current interpretive data was last revised on 2016. Blood specimen (specimen) 09/20/2018 7:23 AM CDT 09/20/2018 8:15 AM CDT Dequan Frye MD LAB MICROBIOLOGY - GENE RAL ORDERABLES Edited Result - Final [facility] Department [place] [address] * COLONOSCOPY REPORT (05/02/2015) Anatomical Region Laterality Modality Other Narrative 05/02/2015 Ordered by an unspecified provider. Historical Provider GI PROCEDURE ORDERABLES F inal Result from Last 3 Months or Most Recently Relevant to Health Maintenance [place] [place] [address] [employer] MEDICARE SOLUTIONS [facility] Address: [facility] [address] [place] [address] [facility] MEDICARE SOLUTIONS [facility] MED[facility] Address[id number] [place] [address] MEDICARE SOLUTIONS [facility] MEDICARE SOLUTIONS MEDICARE SOLUTIONS TRANSPLANT [employer] MEDICARE RISK [employer] [facility] MDCR HMO REF [facility] Address: [address] [address] [place] [address] [facility] MDCR HMO REF Advance Directives For more information, please contact: [phone] * Full Code (Latest Code Status on [...] 3:54 PM 01/17/2019 2:15 PM Care Teams Product Delivery Specialist Relationship Specialty Start Date End Date Lian Melchor MD [address] [address] PCP - General Gastroenterology 11/13/22 Dequan Frye MD Referring Physician Transplant Hepatology 08/19/18
--- OUTSIDE RECORDS SUMMARY | 2024-04-10 13:37 | XMS_ITS | Encounter Summary ---
Author Organization [facility] Address [address] [place] [address] Care Team Providers Care Brim Setter Name Role Phone Jazmin Shankar MD Primary Care Provider [phone] Cedrick Barriga MD Primary Care Provider [phone] Unknown, Notinfile Primary Care Provider Unavail able Cedrick Barriga MD Primary Care Provider [phone] Cedrick Barriga MD Unavailable [phone] Olya Corcoran RN Unavailable [phone] Dequan Frye MD Unavailable [phone] Lian Melchor MD Primary Care Provider Encounter Details Date Type Department Care Team (Late st Contact Info) Description 06/24/2020 Telephone [facility] [address] [place] [address] Rj Johnson, RT Social History [...] on file Legal Sex Male 2:43 AM MANAGER FEDERAL Gender Identity Not on file Sexual Orientation [...] COVID: Suspected 03/01/2023 03/01/2023 03/01/2023 10:12 PM MANAGER FEDERAL RSV, droplet 03/01/2023 03/01/2023 03/08/2023 3:05 AM MANAGER FEDERAL documented as of this encounter Care Teams Brim Setter Relationship Specialty Start Date End Date Jazmin Shankar MD PCP - General Family Medicine 08/09/18 12/23/20 Cedrick Barriga MD [address] [place] [address] PCP - General 12/24/20 07/19/22 Unknown, Notinfile PCP - General 07/20/22 07/20/22 Cedrick Barriga MD [address] [place] [address] PCP - General Family Medicine 07/21/22 11/12/22 Lian Melchor MD [address] [place] [address] PCP - General Gastroenterology 11/13/22 Cedrick Barriga MD [address] [place] [address] 07/20/22 08/11/22 Olya Corcoran RN Door Opener 08/10/1812/09 Dequan Frye MD Referring Physician Transplant Hepatology 08/19/18 documented as of this encounter
--- OUTSIDE RECORDS SUMMARY | 2024-04-10 13:37 | XMS_ITS | Encounter Summary ---
Author Organization [facility] Address [address] [place] [address] Care Team Providers Care Motion Picture Narrator Name Role Phone Jazmin Shankar MD Primary Care Provider [phone] Cedrick Barriga MD Primary Care Provider [phone] Unknown, Notinfile Primary Care Provider Unavail able Cedrick Barriga MD Primary Care Provider [phone] Cedrick Barriga MD Unavailable [phone] Olya Corcoran RN Unavailable [phone] Dequan Frye MD Unavailable [phone] Lian Melchor MD Primary Care Provider Encounter Details Date Type Department Care Team (Late st Contact Info) Description 04/10/2020 Telephone [facility] Radiology [address] [facility] [place] [address] Fabian Almaguer MD [address] [facility] [address] [place] [address] Social History Tobacco Use Types Packs/Day Years Used Date Smoking Tobacco: Every Day Cigarettes 0.2 42.1 Started: 1984 Smokeless Tobacco: Never Comments:trying to quit-smok ing Alcohol Use Standard Drinks/Week Comments Not Currently 0 (1 standard drink = 0.6 oz pur e alcohol) denies Sex and Gender Information Value Date Recorded Sex Assigned at Not on file Legal Sex Male 2:43 AM HEEL PACKER Gender Identity Not on file Sexual Orientation [...] COVID: Suspected 03/01/2023 03/01/2023 03/01/2023 10:12 PM HEEL PACKER RSV, droplet 03/01/2023 03/01/2023 03/08/2023 3:05 AM HEEL PACKER documented as of this encounter Care Teams Motion Picture Narrator Relationship Specialty Start Date End Date Jazmin Shankar MD PCP - General Family Medicine 08/09/18 12/23/20 Cedrick Barriga MD [address] [place] [address] PCP - General 12/24/20 07/19/22 Unknown, Notinfile PCP - General 07/20/22 07/20/22 Cedrick Barriga MD [address] [place] [address] PCP - General Family Medicine 07/21/22 11/12/22 Lian Melchor MD [address] [address] PCP - General Gastroenterology 11/13/22 Cedrick Barriga MD [address] [place] [address] 07/20/22 08/11/22 Olya Corcoran, RN Blueprint Assembler 08/10/1812/09 Dequan Frye MD Referring Physician Transplant Hepatology 08/19/18 documented as of this encounter
--- OUTSIDE RECORDS SUMMARY | 2024-04-10 13:37 | XMS_ITS | Encounter Summary ---
Author Organization [facility] Address [address] [place] [address] Phone Care Team Providers Care Monomer Recovery Operator Name Role Phone Dequan Frye MD Unavailable [phone] Lian Melchor MD Primary Care Provider Encounter Details Date Type Department Care Team (Late st Contact Info) Description 11/27/2022 Telephone [facility] Gastroenterology [address] [facility] 12th [place] [address] [place] [address] Zoya Masterson LPN Social History [...] on file Legal Sex Male 2:43 AM AVIONICS TECHNICIAN Gender Identity Not on file Sexual Orientation [...] COVID: Suspected 03/01/2023 03/01/2023 03/01/2023 10:12 PM AVIONICS TECHNICIAN RSV, droplet 03/01/2023 03/01/2023 03/08/2023 3:05 AM AVIONICS TECHNICIAN documented as of this encounter Care Teams Monomer Recovery Operator Relationship Specialty Start Date End Date Lian Melchor MD [address] [place] [address] PCP - General Gastroenterology 11/13/22 Dequan Frye MD Referring Physician Transplant Hepatology 08/19/18 documented as of this encounter
--- OUTSIDE RECORDS SUMMARY | 2024-04-10 13:37 | XMS_ITS | Encounter Summary ---
Author Organization [facility] Address [address] [place] [address] Phone Care Team Providers Care Adobe Layer Helper Name Role Phone Dequan Frye MD Unavailable [phone] Lian Melchor MD Primary Care Provider Encounter Details Date Type Department Care Team (Late st Contact Info) Description 12/09/2023 Telephone [facility] Gastroenterology [address] 12th [place] [address] [place] [address] Zoya Masterson LPN Social History [...] on file Legal Sex Male 2:43 AM PROCESSING ASSOCIATE Gender Identity Not on file Sexual Orientation [...] on filedocumented in this encounter Care Teams Adobe Layer Helper Relationship Specialty Start Date End Date Lian Melchor MD [address] [address] PCP - General Gastroenterology 11/13/22 Dequan Frye MD Referring Physician Transplant Hepatology 08/19/18 documented as of this encounter
--- OUTSIDE RECORDS SUMMARY | 2024-04-10 13:37 | XMS_ITS | Encounter Summary ---
Author Organization [facility] Address [address] [place] [address] Phone Care Team Providers Care Steam Plant Records Clerk Name Role Phone Cedrick Barriga MD Primary Care Provider [phone] Unknown, Notinfile Primary Care Provider Unavail able Cedrick Barriga MD Primary Care Provider [phone] Cedrick Barriga MD Unavailable [phone] Dequan Frye MD Unavailable [phone] Lian Melchor MD Primary Care Provider Encounter Details Date Type Department Care Team (Late st Contact Info) Description 04/01/2022 Documentation [facility] Gastroenterology [address] [facility] [address]th [place] [address] [place] [id number] Zoya Masterson LPN Social History Tobacco Use [...] on file Legal Sex Male 2:43 AM WAGE ADJUSTER Gender Identity Not on file Sexual Orientation [...] COVID: Suspected 03/01/2023 03/01/2023 03/01/2023 10:12 PM WAGE ADJUSTER RSV, droplet 03/01/2023 03/01/2023 03/08/2023 3:05 AM WAGE ADJUSTER documented as of this encounter Care Teams Steam Plant Records Clerk Relationship Specialty Start Date End Date Cedrick Barriga MD [address] [place] [address] PCP - General 12/24/20 07/19/22 Unknown, Notinfile PCP - General 07/20/22 07/20/22 Cedrick Barriga MD [address] [place] [address] PCP - General Family Medicine 07/21/22 11/12/22 Lian Melchor MD [address] [place] [address] PCP - General Gastroenterology 11/13/22 Cedrick Barriga MD [address] [place] [address] 07/20/22 08/11/22 Dequan Frye MD Referring Physician Transplant Hepatology 08/19/18 documented as of this encounter
--- OUTSIDE RECORDS SUMMARY | 2024-04-10 13:37 | XMS_ITS | Encounter Summary ---
Author Organization [facility] Address [address] [place] [address] Care Team Providers Care Raw Juice Weigher Name Role Phone Jazmin Shankar MD Primary Care Provider [phone] Cedrick Barriga MD Primary Care Provider [phone] Unknown, Notinfile Primary Care Provider Unavail able Cedrick Barriga MD Primary Care Provider [phone] Cedrick Barriga MD Unavailable [phone] Olya Corcoran RN Unavailable [phone] Dequan Frye MD Unavailable [phone] Melissa Schumacher RN Unavailable Lian Melchor MD Primary Care Provider Encounter Details Date Type Department Care Team (Late st Contact Info) Description 09/15/2019 Telephone [facility] [place], [place] [id number] Piotr Trujillo MD [address] [place], [place] [id number] Social History Tobacco Use Types Packs/Day Years Used Date Smoking Tobacco: Every Day Cigarettes 0.2 42.1 Started: 1984 Smokeless Tobacco: Never Comments:trying to quit-smok ing Alcohol Use Standard Drinks/Week Comments Not Currently 0 (1 standard drink = 0.6 oz pur e alcohol) denies Sex and Gender Information Value Date Recorded Sex Assigned at Not on file Legal Sex Male 2:43 AM 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 Gender Identity Not on file Sexual Orientation [...] COVID: Suspected 03/01/2023 03/01/2023 03/01/2023 10:12 PM 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 RSV, droplet 03/01/2023 03/01/2023 03/08/2023 3:05 AM 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 documented as of this encounter Care Teams Raw Juice Weigher Relationship Specialty Start Date End Date Jazmin Shankar MD PCP - General Family Medicine 6/11/19 10/25/21 Cedrick Barriga MD [address] [place] [address] PCP - General 12/24/20 07/19/22 Unknown, Notinfile PCP - General 07/20/22 07/20/22 Cedrick Barriga MD [address] [place] [address] PCP - General Family Medicine 07/21/22 11/12/22 Lian Melchor MD [address] [place] [address] PCP - General Gastroenterology 11/13/22 Cedrick Barriga MD [address] [place] [address] 07/20/22 08/11/22 Olya Corcoran RN Foam Gun Operator 08/10/1812/09 Dequan Frye MD Referring Physician Transplant Hepatology 08/19/18 Melissa Schumacher RN [address] [address] Foam Gun Operator 01/29/20 documented as of this encounter
--- OUTSIDE RECORDS SUMMARY | 2024-04-10 13:37 | XMS_ITS | Referral Summary ---
Author Organization [facility] Address [address] [place] [address] Care Team Providers Care Human Resources Compensation Analyst Name Role Phone Dequan Frye MD Unavailable [phone] Lian Melchor MD Primary Care Provider Encounters Date Type Department Care Team Description 04/04/2024 Telephone [facility] Gastroenterology [address] [facility] [address]th [place] [address] [place] [address] Paola Degroot, CLIENT CONSULTANT 04/03/2024 Telephone [facility] Gastroenterology [address] [facility] [address]th [place] [address] [place] [address] Paola Degroot, CLIENT CONSULTANT 03/24/2024 Telephone [facility] [address] [facility] [address]th [place] [address] [place] [address] Paola Degroot, CLIENT CONSULTANT 03/23/2024 Telephone [facility] [address] [facility] [address]th [place] [address] [place] [address] Zoya Masterson LPN 01/17/2024 Orders Only [facility] Gastroenterology [address] [facility] [address]th [place] [address] [place] [address] Zoya Masterson LPN 01/10/2024 8:40 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 Office Visit [facility] G[facility]enterology [address] [place] [address] Staci Spangler MD Chronic viral hepatitis B [...] and ICU transfer Fentanyl Delusions,Agitation Medium 07/20/2022 [place] Swollen tongue High 09/20/2018 Throat closes Medications [...] the original. Best number to call is [phone]. Cell phone has been turned off as of 08/17/2019 Problem Noted Date Diagnosed Date Protein-calorie malnutrition, severe (CMS/HCC) 0 11/25/2022 Abdominal pain 11/24/2022 Intractable nausea and vomiting 11/24/2022 Benign prostatic hyperplasia without lower urinary tract symptoms 11/24/2022 Choledocholithiasis 11/24/2022 Hiatal hernia 08/14/2022 Seizure 07/20/2022 Cirrhosis of liver without ascites (CMS/HCC) Overview (06/11/2022): Added automatically from request for surgery [id number] Seizures 12/10/2020 Osteopenia 09/21/2018 Chronic viral hepatitis B 08/31/2018 Overview (08/31/2018): Added automatically from request for surgery [id number] Hepatocellular carcinoma 08/09/2018 Chronic viral hepatitis B [...] on file Legal Sex Male 2:43 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 Gender Identity Not on file Sexual Orientation Not on file 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 Not on file Not on file Last Filed Vital Signs Vital Sign Reading Time Taken Comments Blood Pressure 120/71 01/10/2024 8:28 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 Pulse 87 01/10/2024 8:28 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 Temperature 37.2 C (99 F) 01/10/2024 8:28 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 Respiratory Rate 18 03/02/2023 5:30 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 Oxygen Saturation 99% 01/10/2024 8:28 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 Inhaled Oxygen Concentration - - Weight 55.3 kg (122 lb) 01/10/2024 8:28 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 Height 175.3 cm (5' 9 ) 01/10/2024 8:28 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 Body Mass Index 18.02 01/10/2024 8:28 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 Plan of Treatment Scheduled Procedures Name Priority Associated Diagnoses Date/Ti wa ESOPHAGOGASTRODUODENOSCOPY Hiatal hernia TRANSPLANT LIVER Chronic viral [...] telling anyone). Medical Devices Implanted Type Area Underwear Cutter Device Identifier Shelf Expiration Date Model / Serial / Lot Lt Lower Leg Ortho Hardware-01/16/20 18 Implanted: 018 (Quantity not on file) Left: Leg Fligoo S220gh Embosphere Prefill Saline Syringe Compressible Nonaggregate - [id number] Implanted:Qty: 1 on 11/02/2018 at [facility] [employer] 05/29/2021 [id number] / / [id number] Procedures Procedure Name Priority Date/Time Associated Diagnosis [...] AM CDT) PSA-Total 0.19 <=3.90 ng/mL [facility] Comment: Interpretive Data AGE SEX REFERENCE INTERVAL 0 minutes-150 years Female None 0 minutes-49 years Male None 50-59 years Male 0-3.90 60-69 years Male 0-5.40 70-79 years Male 0-6.20 80-150 years Male 0-6.20 Current interpretive data last revised 2017. Blood specimen (specimen) 09/20/2018 7:23 AM CDT 09/20/2018 8:16 AM CDT us Dequan Frye MD LAB BLOOD ORDERABLES Fi nal [facility] Department [place] [address] * Hepatitis C antibody (09/20/2018 7:23 AM CDT) Hep C Ab Nonreactive Nonreactive [facility] Comment: Interpretive Data Positive results should be confirmed by a molecular method. If positive, a second separately collected sample should be submitted for Hepatitis C Virus (HCV) RNA Detection and Quantitation by Real-Time Reverse Telephone Quotation Clerk-PCR (RT-PCR). Current interpretive data was last revised on 2016. Blood specimen (specimen) 09/20/2018 7:23 AM CDT 09/20/2018 8:15 AM CDT Dequan Frye MD LAB MICROBIOLOGY - GENE [facility] ORDERABLES Edited Result - Final Performing Organization Address [place] de Phone Number [facility] Department [place] [address] * COLONOSCOPY REPORT (05/02/2015) Anatomical Region Laterality Modality Other Narrative 05/02/2015 Ordered by an unspecified provider. Historical Provider GI PROCEDURE ORDERABLES F inal Result from Last 3 Months or Most Recently Relevant to Health Maintenance [place] [place] [address] [employer] SOL[employer] [facility] MEDICARE SOLUTIONS MEDICARE SOLUTIONS [facility] Address: [address] [address] [place] [address] [employer] MED[employer] SOL[employer]IONS [facility] Address: [address] [address] [place] [address] MEDICARE SOLUTIONS TRANSPLANT [employer] MEDICARE RISK [employer] [facility] MDCR HMO REF [facility] Address: [address] [address] [place] [address] [facility] REF [facility] Address: [facility] [address] [place] [address] Advance Directives For more information, please contact: [phone] * Full Code (Latest Code Status on [...] 3:54 PM 01/17/2019 2:15 PM Care Teams Human Resources Compensation Analyst Relationship Specialty Start Date End Date Lian Melchor MD [address] [address] PCP - General Gastroenterology 11/13/22 Dequan Frye MD Referring Physician Transplant Hepatology 08/19/18
--- OUTSIDE RECORDS SUMMARY | 2024-04-10 13:37 | XMS_ITS ---
Author Organization [facility] Address [address] [place] [address] Care Team Providers Care Radio Television Technical Director Name Role Phone Dequan Frye MD Unavailable [phone] Lian Melchor MD Primary Care Provider Active Problems Patient Care Coordination No te Formatting of this note migh t be different from the original. Best number to call is [phone]. Cell phone has been turned off as of 08/17/2019 Problem Noted Date Diagnosed Date Protein-calorie malnutrition, severe (CMS/HCC) 0 11/25/2022 Abdominal pain 11/24/2022 Intractable nausea and vomiting 11/24/2022 Benign prostatic hyperplasia without lower urinary tract symptoms 11/24/2022 Choledocholithiasis 11/24/2022 Hiatal hernia 08/14/2022 Seizure 07/20/2022 Cirrhosis of liver without ascites (CMS/HCC) Overview (06/11/2022): Added automatically from request for surgery [id number] Seizures 12/10/2020 Osteopenia 09/21/2018 Chronic viral hepatitis B 08/31/2018 Overview (08/31/2018): Added automatically from request for surgery [id number] Hepatocellular carcinoma 08/09/2018 Chronic viral hepatitis B wi thout delta agent and without coma 08/09/2018 Nondependent alcohol abuse, in remission 013 Smokes tobacco daily 05/11/2012 Pre-transplant evaluation for liver transplant Emphysema Current Oncology Plans No current plan information found. Past Plans No past plan information found. Radiation Treatments * No radiation treatments are documented for this patient in [facility]. Treatments may have been administered in another system. Lifetime Dose Tracking * Chemical Lifetime Dose Automatic Entry Manual Entr y Fluoro Time 20.633 minutes 20.633 minutes 0 minutes Air kerma at the reference point (Ka,r) 327 mGy 3 27 mGy 0 mGy DLP 3,581 mGycm 3,581 mGycm 0 mGycm
== END 2024-04-10 14:25 | disposition left against medical advice (07) ==
LOC: ANHED 13:24
PROVIDERS: PCP Internal Medicine Gastroenterology
DX: R06.02 Shortness of breath (principal)
CPT/HCPCS: 99199

== ENCOUNTER 2024-05-07 14:29 | Emergency (ER) | payer MEDICARE, MEDICAID, SELFPAY ==
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
[2024-05-07 14:32] VITALS: BP 159/92; PULSE 94; RESP 20; TEMP 36.8; O2SAT 96
[2024-05-07 14:45] VITALS: O2SAT 96
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
--- OUTSIDE RECORDS SUMMARY | 2024-05-07 14:46 | XMS_ITS | Clinical Summary ---
Author Organization [facility] Address [address] [place] [address] Care Team Providers Care Black Off Worker Name Role Phone Unavailable Primary Care Provider Unavailabl e Social History Tobacco Use Types Packs/Day Years Used Date Smoking Tobacco: Never Assessed Sex and Gender Information Value Date Recorded Sex Assigned at Not on file Legal Sex Male 8:48 PM CDT Gender Identity Not on file Sexual Orientation Not on file Last Filed Vital Signs Vital Sign Reading Time Taken Comments Blood Pressure 124/76 04/26/2013 10:30 AM HR GENERALIST Pulse 80 02/13/2013 1:51 PM HR GENERALIST Temperature - - Respiratory Rate - - Oxygen Saturation - - Inhaled Oxygen Concentration - - Weight 56.7 kg (125 lb) 03/27/2013 1:50 PM HR GENERALIST Height 175.3 cm (5' 9 ) 03/27/2013 1:50 PM HR GENERALIST Body Mass Index 18.46 03/27/2013 1:50 PM HR GENERALIST Plan of Treatment Health Maintenance Due Date Last Done Comments Colorectal Cancer Screening Colonoscopy (10 Years) 1963 Annual Physical 09/13/1966 Hepatitis C 09/13/1981 DTaP, Tdap and Td Vaccines ( 1 - Tdap) 09/13/1982 Zoster Vaccines (1 of 2) 09/13/2013 COVID-19 Vaccine ( - 2023-2 5 season) 2023 Influenza Adult (#1) 2023 02/13/2013 RSV Immunization or 60+ Years (1 - 1-dose 75+ series) 09/13/2038 Meningococcal B Vaccine Aged Out No l onger eligible based on patient's age to complete this topic Meningococcal Vaccine Aged Out No omar abigail eligible based on patient's age to complete this topic Pneumococcal Vaccine: Pediat rics (0 to 5 Years) and At-Risk Patients (6 to 64 Years) Aged Out No longer eligi ble based on patient's age to complete this topic RSV Immunizations Under 20 Months Aged Out No longer eligible based on patient's age to complete this topic
--- OUTSIDE RECORDS SUMMARY | 2024-05-07 14:47 | XMS_ITS | Encounter Summary ---
Author Organization [facility] Healthcare Address [address] [place] [address] Care Team Providers Care International Logistics Manager Name Role Phone Jazmin Shankar MD Primary Care Provider [phone] Cedrick Barriga MD Primary Care Provider [phone] Unknown, Notinfile Primary Care Provider Unavail able Cedrick Barriga MD Primary Care Provider [phone] Cedrick Barriga MD Unavailable [phone] Olya Corcoran RN Unavailable [phone] Dequan Frye MD Unavailable [phone] Lian Melchor MD Primary Care Provider Encounter Details Date Type Department Care Team (Late st Contact Info) Description 06/24/2020 Telephone [facility] [address] [place] [address] Rj Johnson, RT Social History Tobacco Use Types Packs/Day Years Used Date Smoking Tobacco: Every Day Cigarettes 0.3 42.2 Started: 1984 Smokeless Tobacco: Never Comments:trying to quit-smok ing Alcohol Use Standard Drinks/Week Comments Not Currently 0 (1 standard drink = 0.6 oz pur e alcohol) denies Sex and Gender Information Value Date Recorded Sex Assigned at Not on file Legal Sex Male 2:43 AM POLICY CHECKER Gender Identity Not on file Sexual Orientation Not on file documented as of this encounter Plan of Treatment Scheduled Procedures Name Priority Associated Diagnoses Date/Ti me ESOPHAGOGASTRODUODENOSCOPY Hiatal hernia TRANSPLANT LIVER Chronic viral hepatitis B (HCC) documented as of this encounter Goals Goal [...] COVID: Suspected 03/01/2023 03/01/2023 03/01/2023 10:12 PM POLICY CHECKER RSV, droplet 03/01/2023 03/01/2023 03/08/2023 3:05 AM POLICY CHECKER documented as of this encounter Care Teams International Logistics Manager Relationship Specialty Start Date End Date Jazmin Shankar MD PCP - General Family Medicine 08/09/18 12/23/20 Cedrick Barriga MD [address] [place] [address] PCP - General 12/24/20 07/19/22 Unknown, Notinfile PCP - General 07/20/22 07/20/22 Cedrick Barriga MD [address] [place] [address] PCP - General Family Medicine 07/21/22 11/12/22 Lian Melchor MD [address] [place] [address] PCP - General Gastroenterology 11/13/22 Cedrick Barriga MD [address] [place] [address] 07/20/22 08/11/22 Olya Corcoran RN Cod Clerk 08/10/1812/09 Dequan Frye MD Referring Physician Transplant Hepatology 08/19/18 documented as of this encounter
--- OUTSIDE RECORDS SUMMARY | 2024-05-07 14:47 | XMS_ITS | Encounter Summary ---
Author Organization [facility] Healthcare Address [address] [place] [address] Care Team Providers Care Beading Installer Name Role Phone Jazmin Shankar MD Primary Care Provider [phone] Cedrick Barriga MD Primary Care Provider [phone] Unknown, Notinfile Primary Care Provider Unavail able Cedrick Barriga MD Primary Care Provider [phone] Cedrick Barriga MD Unavailable [phone] Olya Corcoran RN Unavailable [phone] Dequan Frye MD Unavailable [phone] Melissa Schumacher RN Unavailable Lian Melchor MD Primary Care Provider Encounter Details Date Type Department Care Team (Late st Contact Info) Description 09/15/2019 Telephone [facility] [place], [place] [id number] Piotr Trujillo MD [address] [place], [place] [id number] Social History Tobacco Use Types Packs/Day Years Used Date Smoking Tobacco: Every Day Cigarettes 0.3 42.2 Started: 1982 Smokeless Tobacco: Never Comments:trying to quit-smok ing Alcohol Use Standard Drinks/Week Comments Not Currently 0 (1 standard drink = 0.6 oz pur e alcohol) denies Sex and Gender Information Value Date Recorded Sex Assigned at Not on file 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 Sex 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 Gender Identity Not on file Sexual [...] COVID: Suspected 03/01/2023 03/01/2023 03/01/2023 10:12 PM GANTRY CRANE OPERATOR RSV, droplet 03/01/2023 03/01/2023 03/08/2023 3:05 AM GANTRY CRANE OPERATOR documented as of this encounter Care Teams Beading Installer Relationship Specialty Start Date End Date Jazmin Shankar MD PCP - General Family Medicine 08/09/18 12/23/20 Cedrick Barriga MD [address] [place] [address] PCP - General 12/24/20 07/19/22 Unknown, Notinfile PCP - General 07/20/22 07/20/22 Cedrick Barriga MD [address] [place] [address] PCP - General Family Medicine 07/21/22 11/12/22 Lian Melchor MD [address] [place] [id number] PCP - General Gastroenterology 11/13/22 Cedrick Barriga MD [address] [place] [address] 07/20/22 08/11/22 Olya Corcoran RN Ski Base Trimmer 08/10/1812/09 Dequan Frye MD Referring Physician Transplant Hepatology 08/19/18 Melissa Schumacher, ETELVINA [address] [address] Ski Base Trimmer 01/29/20 documented as of this encounter
--- OUTSIDE RECORDS SUMMARY | 2024-05-07 14:47 | XMS_ITS | Encounter Summary ---
Author Organization [facility] Address [address] [place] [address] Phone Care Team Providers Care Central Office Frame Wirer Name Role Phone Cedrick Barriga MD Primary Care Provider [phone] Unknown, Notinfile Primary Care Provider Unavail able Cedrick Barriga MD Primary Care Provider [phone] Cedrick Barriga MD Unavailable [phone] Dequan Frye MD Unavailable [phone] Lian Melchor MD Primary Care Provider Encounter Details Date Type Department Care Team (Late st Contact Info) Description 04/01/2022 Documentation [facility] Gastroenterology [address] [facility] [address]th [place] [address] [place] [id number] Zoya Masterson LPN Social History Tobacco Use [...] on file Legal Sex Male 2:43 AM CRAYON MOLDING MACHINE OPERATOR Gender Identity Not on file [...] COVID: Suspected 03/01/2023 03/01/2023 03/01/2023 10:12 PM CRAYON MOLDING MACHINE OPERATOR RSV, droplet 03/01/2023 03/01/2023 03/08/2023 3:05 AM CRAYON MOLDING MACHINE OPERATOR documented as of this encounter Care Teams Central Office Frame Wirer Relationship Specialty Start Date End Date Cedrick Barriga MD [address] [place] [address] PCP - General 12/24/20 07/19/22 Unknown, Notinfile PCP - General 07/20/22 07/20/22 Cedrick Barriga MD [address] [place] [address] PCP - General Family Medicine 07/21/22 11/12/22 Lian Melchor MD [address] [place] [address] PCP - General Gastroenterology 11/13/22 Cedrick Barriga MD [address] [place] [address] 07/20/22 08/11/22 Dequan Frye MD Referring Physician Transplant Hepatology 08/19/18 documented as of this encounter
--- OUTSIDE RECORDS SUMMARY | 2024-05-07 14:47 | XMS_ITS | Data Portability ---
Author Organization [facility] Faheem Cruz Address [address] [place] [address] Care Team Providers Care District Gauger Name Role Phone LIAN LAMB Primary Care Provider Assessment No assessment recorded. Plan of Treatment Reminders Order Date Submit Date Provider Last Modified By Organization Details Last Modified Time Details Appointments ANY 15 2024 11:45A M Lian Lamb MD Not available Not available Not available Lab CMP, serum or plasma 2023 024 [facility], [address], [address], [place], [address], 09/22/2023 10:15:30 CBC 2023 024 [facility], [address], [place], [address], 09/22/2023 10:15:[address] referral 2024 025 KRUNAL Vasquez MD, [address] [facility], [address], [place], [address], 04/05/2024 05:39:11 hematolog ist referral - Cirrhosis associate d with HBV. Chronic low plt count 2023 024 KRUNAL Pacheco MD, [address], [place], [address], 12/08/2023 09:12:50 gastroent erologist referral - Chronic liver disease/H CC/HBV. Was on xplant list at [facility] 2023 024 [facility], [address] [facility] [address], [place], [address], 01/16/2024 04:09:45 Procedures None recorded. Surgeries None recorded. Imaging None recorded. Medication Orders ondansetr on 4 mg disintegr ating tablet 2024 025 [facility], [address] [facility], [place], [address], 03/22/2024 17:45:12 hydrocodo ne 5 mg-acetam inophen 325 mg tablet 2024 025 [facility], [address], [place], [address], 03/22/2024 17:10:44 Breo Ellipta 200 mcg-25 mcg/dose powder for inhalatio n 2022 023 [facility] [address], [address] [facility], [place], [address], 02/01/2023 16:56:25 benzonata te 100 mg capsule 2022 024 [facility] [address], [address] [facility], [place], [address], 09/21/2023 12:26:31 Patient TargetsNo targets recorded. Patient Instructions Encounter Date Encounter Id Patient Instructions Last Modified By Organization Details Last Modified Time 02/01/2023 [id number] bronchitis: care instructions [email or web address] Not available 02/01/2023 16:56:18 03/17/2023 [id number] esophageal varices: care instructions [email or web address] Not available 03/17/2023 15:04:19 cirrhosis: care instructions Not available 03/17/2023 15:04:19 liver disease diet: care instructions [email or web address] Not available 03/17/2023 15:04:19 chronic obstructive pulmonary disease (COPD): care instructions [email or web address] Not available 03/17/2023 15:04:18 learning about copd and how to prevent lung infections Not available 03/17/2023 15:04:19 09/21/2023 [id number] chronic obstructive pulmonary disease (COPD): care instructions [email or web address] Not available 09/21/2023 13:22:30 deciding about using medicines to quit smoking [email or web address] Not available 09/21/2023 13:22:31 Quitting Tobacco : Care Instructions [email or web address] Not available 09/21/2023 13:22:31 esophageal varices: care instructions Not available 09/21/2023 13:22:31 cirrhosis: care instructions [email or web address] Not available 09/21/2023 13:22:31 liver disease diet: care instructions [email or web address] Not available 09/21/2023 13:22:31 03/22/2024 [id number] deciding about using medicines to quit smoking [email or web address] Not available 03/22/2024 17:10:35 Quitting Tobacco : Care Instructions [email or web address] Not available 03/22/2024 17:10:35 hepatitis B: car e instructions [email or web address] Not available 03/22/2024 17:10:35 cirrhosis: care instructions [email or web address] Not available 03/22/2024 17:10:35 liver disease diet: care instructions [email or web address] Not available 03/22/2024 17:10:35 chronic obstructive pulmonary disease (COPD): care instructions [email or web address] Not available 03/22/2024 17:10:35 learning about copd and how to prevent lung infections Not available 03/22/2024 17:10:35 nausea and vomiting: care instructions [email or web address] Not available 03/22/2024 17:45:07 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 Was on xplant list at [facility] Referring Physician: Lian Lamb, Internal Medicine, Encounter Date: 09/21/2023 Cirrhosis associated with HB V. Chronic low plt count Referring Physician: Lian Lamb, Internal Medicine, Encounter Date: 10/12/2023 Neurologist Referral for Par esthesia Generalized numbness tingling Referring Physician: Lian Lamb Internal Medicine, Encounter Date: 03/22/2024 Results Created Date Observation Date Name Description Value Unit Range Abnormal Flag Note LastModifiedBy Organization Detail LastModifiedTime 09/21/19 24 09/22/2023 COMP. METAB OLIC PANEL (14) glucose 97 mg/dL 70-99 Not Available [facility] ([facility]) [address] [facility], [place], [address], 09/22/2023 10:15:30 09/21/19 24 09/22/2023 COMP. METAB OLIC PANEL (14) BUN 16 mg/dL 8-27 Not Available [facility] ([facility]) [address] [facility] [place], [address], 09/22/2023 10:15:30 09/21/19 24 09/22/2023 COMP. METAB OLIC PANEL (14) creatinine 0.88 mg/dL 0.76-1 .27 Not Available [facility] ([facility]) [address] [place], [address], 09/22/2023 10:15:30 09/21/19 24 09/22/2023 COMP. METAB OLIC PANEL (14) eGFR 98 mL/mi n/1.7 3 >59 Not Available [facility] ([facility]) [address] [place], [address], 09/22/2023 10:15:30 09/21/19 24 09/22/2023 COMP. METAB OLIC PANEL (14) BUN/creatini ne ratio 18 10-24 Not Available [facility] ([facility]) [address] [place], [address], 09/22/2023 10:15:30 09/21/19 24 09/22/2023 COMP. METAB OLIC PANEL (14) sodium 144 mmol/ L 134-14 4 Not Available [facility] ([facility]) [address] [place], [address], 09/22/2023 10:15:30 09/21/19 24 09/22/2023 COMP. METAB OLIC PANEL (14) potassium 5.2 mmol/ L 3.5-5. 2 Not Available [facility] ([facility]) [address] [place], [address], 09/22/2023 10:15:30 09/21/19 24 09/22/2023 COMP. METAB OLIC PANEL (14) chloride 106 mmol/ L 96-106 Not Available [facility] ([facility]) [address] [place], [address], 09/22/2023 10:15:30 09/21/19 24 09/22/2023 COMP. METAB OLIC PANEL (14) carbon dioxide, total 23 mmol/ L 20-29 Not Available [facility] ([facility]) [address] [place], [address], 09/22/2023 10:15:30 09/21/19 24 09/22/2023 COMP. METAB OLIC PANEL (14) calcium 9.8 mg/dL 8.6-10 .2 Not Available [facility] ([facility]) [address] [place], [address], 09/22/2023 10:15:30 09/21/19 24 09/22/2023 COMP. METAB OLIC PANEL (14) protein, total 7.7 g/dL 6.0-8. 5 Not Available [facility] ([facility]) [address] [place], [address], 09/22/2023 10:15:30 09/21/19 24 09/22/2023 COMP. METAB OLIC PANEL (14) albumin 4.6 g/dL 3.8-4. 9 Not Available [facility] ([facility]) [address] [place], [address], 09/22/2023 10:15:30 09/21/19 24 09/22/2023 COMP. METAB OLIC PANEL (14) globulin, total 3.1 g/dL 1.5-4. 5 Not Available [facility] ([facility]) [address] [facility], [place], [address], 09/22/2023 10:15:30 09/21/19 24 09/22/2023 COMP. METAB OLIC PANEL (14) bilirubin, total 0.8 mg/dL 0.0-1. 2 Not Available [facility] ([facility]) [address] [facility], [place], [address], 09/22/2023 10:15:30 09/21/19 24 09/22/2023 COMP. METAB OLIC PANEL (14) alkaline phosphatase 107 IU/L 44-121 Not Available [facility] ([facility]) [address] [place], [address], 09/22/2023 10:15:30 09/21/19 24 09/22/2023 COMP. METAB OLIC PANEL (14) AST (SGOT) 33 IU/L 0-40 Not Available [facility] ([facility]) [address] [facility], [place], [address], 09/22/2023 10:15:30 09/21/19 24 09/22/2023 COMP. METAB OLIC PANEL (14) ALT (SGPT) 25 IU/L 0-44 Not Available [facility] ([facility]) [address] [place], [address], 09/22/2023 10:15:30 09/21/19 24 09/22/2023 CBC, PLATE LET, NO DIFFE RENTI AL WBC 4.4 x10e3 /uL 3.4-10 .8 Not Available [facility] ([facility]) [address] [place], [address], 09/22/2023 10:15:31 09/21/19 24 09/22/2023 CBC, PLATE LET, NO DIFFE RENTI AL RBC 4.30 x10e6 /uL 4.14-5 .80 Not Available [facility] ([facility]) [address] [place], [address], 09/22/2023 10:15:31 09/21/1909/22/2023 CBC, PLATE LET, NO DIFFE RENTI AL hemoglobin 13.8 g/dL 13.0-1 7.7 Not Available [facility] ([facility]) [address] [facility], [place], [address], 09/22/2023 10:15:31 09/21/1909/22/2023 CBC, PLATE LET, NO DIFFE RENTI AL hematocrit 39.1 % 37.5-5 1.0 Not Available [facility] ([facility]) [address] [facility], [place], [address], 09/22/2023 10:15:31 09/21/1909/22/2023 CBC, PLATE LET, NO DIFFE RENTI AL MCV 91 fL 79-97 Not Available [facility] ([facility]) [address] [facility], [place], [address], 09/22/2023 10:15:31 09/21/1909/22/2023 CBC, PLATE LET, NO DIFFE RENTI AL MCH 32.1 pg 26.6-3 3.0 Not Available [facility] ([facility]) [address] [facility], [place], [address], 09/22/2023 10:15:31 09/21/1909/22/2023 CBC, PLATE LET, NO DIFFE RENTI AL MCHC 35.3 g/dL 31.5-3 5.7 Not Available [facility] ([facility]) [address] [facility], [place], [address], 09/22/2023 10:15:31 09/21/1909/22/2023 CBC, PLATE LET, NO DIFFE RENTI AL RDW 14.4 % 11.6-1 5.4 Not Available [facility] ([facility]) [address] [place], [address], 09/22/2023 10:15:31 09/21/19 24 09/22/2023 CBC, PLATE LET, NO DIFFE RENTI AL platelets 82 x10e3 /uL 150-45 0 alert low Plate let count verif ied by exami natio n of perip heral blood smear . Not Available [facility] ([facility]) [address] [facility], [place], [address], 09/22/2023 10:15:31 09/21/19 24 09/22/2023 CBC, PLATE LET, NO DIFFE RENTI AL hematology comments: NOTE: Verif ied by micro scopi c exami natio n. Not Available [facility] ([facility]) [address] [facility], [place], [address], 09/22/2023 10:15:31 09/21/19 24 09/26/2023 COMPL IANCE DRUG EVELYN SIS, UR summary report (summary) FINAL ===== ===== ===== ===== ===== ===== ===== ===== ===== ===== ===== ===== ===== === TOXAS SURE COMP DRUG EVELYN SIS,U R ===== ===== ===== ===== ===== ===== ===== ===== ===== ===== ===== ===== ===== === Test Resul t Flag Units Drug Prese nt Carbo xy-TH C >508 ng/mg creat Carbo xy-TH C is a metab olite of tetra hydro canna binol (THC) . Sourc e of THC is most commo nly herba l marij uana or marij uana- based produ cts, but THC is also prese nt in a sched uled presc ripti on medic ation . Trace amoun ts of THC can be prese nt in hemp and canna bidio l (CBD) produ cts. This test is not inten ded to disti nguis h betwe en delta -9-te trahy droca nnabi nol, the predo minan t form of THC in most herba l or marij uana- based produ cts, and delta -8-te trahy droca nnabi nol. [place] codon e 708 ng/mg creat [place] morph one 50 ng/mg creat Dihyd rocod eine 66 ng/mg creat Norhy droco done 1809 ng/mg creat Sourc es of hydro codon e inclu de sched uled presc ripti on medic ation s. [place] morph one, dihyd rocod eine and norhy droco done are expec kait metab olite s of hydro codon e. [place] morph one and dihyd rocod eine are also avail able as sched uled presc ripti on medic ation s. Gabap entin PRESE NT Aceta minop hen PRESE NT Ibupr ofen PRESE NT ===== ===== ===== ===== ===== ===== ===== ===== ===== ===== ===== ===== ===== === Test Resul t Flag Units Ref Range Creat inine 197 mg/dL >=20 ===== ===== ===== ===== ===== ===== ===== ===== ===== ===== ===== ===== ===== === Decla red Medic ation s: Medic ation list was not provi ded. ===== ===== ===== ===== ===== ===== ===== ===== ===== ===== ===== ===== ===== === For clini pam consu ltati on, pleas e call . ===== ===== ===== ===== ===== ===== ===== ===== ===== ===== ===== ===== ===== === Not Available [facility] ([facility]) [address] [facility], [place], [address], 09/26/2023 15:08:12 09/21/19 24 09/26/2023 COMPL IANCE DRUG EVELYN SIS, UR pdf . Not Available [facility] ([facility]) [address] [facility], [place], [address], 09/26/2023 15:08:12 04/10/19 25 04/10/2024 Lacta te [Mole s/vol ume] in Serum or Plasm a lactate [moles/volum e] in serum or plasma 2.8 mmol/ L low: 0.7mmo l/Lhig h: 1.9mmo l/L high Not Available Not Available 04/11/2024 21:51:03 04/10/19 25 04/10/2024 Strep tococ cus pneum oniae Ag [Pres ence] in Urine by Rapid immun oassa y streptococcu s pneumoniae Ag [presence] in urine by rapid immunoassay Negati ve normal Not Available Not Available 21:51:04 04/10/19 25 04/10/2024 Strep tococ cus pneum oniae Ag [Pres ence] in Urine by Rapid immun oassa y reagent lot number [id number] normal Not Available Not Available 04/01 21:51:04 04/10/19 25 04/10/2024 Strep tococ cus pneum oniae Ag [Pres ence] in Urine by Rapid immun oassa y internal control result Accept able normal Not Available Not Available 21:51:04 04/10/19 25 04/10/2024 Urina lysis compl ete W Refle x Cultu re panel - Urine color of urine by auto Color of urine normal Not Available Not Available 21:51:03 04/10/19 25 04/10/2024 Urina lysis compl ete W Refle x Cultu re panel - Urine appearance of urine Urine specim en normal Not Available Not Available 21:51:03 04/10/19 25 04/10/2024 Urina lysis compl ete W Refle x Cultu re panel - Urine specific gravity of urine by test strip 1.043 1 low: 1.001h igh: 1.03 high Not Available Not Available 04/11/2024 21:51:03 04/10/19 25 04/10/2024 Urina lysis compl ete W Refle x Cultu re panel - Urine pH of urine by test strip 6 pH_un its low: 5pH unitsh igh: 9pH units normal Not Available Not Available 04/11/2024 21:51:03 04/10/19 25 04/10/2024 Urina lysis compl ete W Refle x Cultu re panel - Urine leukocytes [#/volume] in urine by test strip Leukoc yte estera se measur ement text: negati ve normal Not Available Not Available 04/11/2024 21:51:03 04/10/19 25 04/10/2024 Urina lysis compl ete W Refle x Cultu re panel - Urine nitrite [presence] in urine by test strip Labora tory test findin g text: negati ve normal Not Available Not Available 04/11/2024 21:51:03 04/10/19 25 04/10/2024 Urina lysis compl ete W Refle x Cultu re panel - Urine protein [mass/volume ] in urine by test strip 300 mg/dL text: negati ve Not Available Not Available 04/11/2024 21:51:03 04/10/19 25 04/10/2024 Urina lysis compl ete W Refle x Cultu re panel - Urine glucose [moles/volum e] in urine by test strip Labora tory test findin g text: normal normal Not Available Not Available 04/11/2024 21:51:03 04/10/19 25 04/10/2024 Urina lysis compl ete W Refle x Cultu re panel - Urine ketones [moles/volum e] in urine by test strip Labora tory test findin g text: negati ve normal Not Available Not Available 04/11/2024 21:51:03 04/10/19 25 04/10/2024 Urina lysis compl ete W Refle x Cultu re panel - Urine urobilinogen [mass/volume ] in urine by test strip 8 mg/dL text: normal Not Available Not Available 04/11/2024 21:51:03 04/10/19 25 04/10/2024 Urina lysis compl ete W Refle x Cultu re panel - Urine bilirubin.to paul [mass/volume ] in urine by test strip Urine dipsti ck for biliru bin text: negati ve normal Not Available Not Available 04/11/2024 21:51:03 04/10/19 25 04/10/2024 Urina lysis compl ete W Refle x Cultu re panel - Urine erythrocytes [#/volume] in urine by test strip 0.06 mg/dL text: negati ve Not Available Not Available 04/11/2024 21:51:03 04/10/19 25 04/10/2024 Urina lysis compl ete W Refle x Cultu re panel - Urine leukocytes [#/area] in urine sediment by automated count Leukoc ytes in urine low: 0/[hpf ]high: 8/[hpf ] normal Not Available Not Available 04/11/2024 21:51:03 04/10/19 25 04/10/2024 Urina lysis compl ete W Refle x Cultu re panel - Urine erythrocytes [#/area] in urine sediment by automated count Blood in urine low: 0/[hpf ]high: 4/[hpf ] normal Not Available Not Available 04/11/2024 21:51:03 04/10/19 25 04/10/2024 Urina lysis compl ete W Refle x Cultu re panel - Urine bacteria [presence] in urine by automated Urine findin g normal Not Available Not Available 21:51:03 04/10/19 25 04/10/2024 Urina lysis compl ete W Refle x Cultu re panel - Urine mucus [#/area] in urine sediment by automated count Urine findin g Not Available Not Available 21:51:03 04/10/19 25 04/10/2024 Urina lysis compl ete W Refle x Cultu re panel - Urine epithelial cells.squ[place] us [#/area] in urine sediment by automated count Urine findin g Not Available Not Available 21:51:03 04/10/1904/10/2024 Urina lysis compl ete W Refle x Cultu re panel - Urine hyaline casts [#/area] in urine sediment by automated count Urine findin g text: none seen Not Available Not Available 04/11/2024 21:51:03 04/10/19 25 04/10/2024 Thyro tropi n [Unit s/vol ume] in Serum or Plasm a by Detec tion limit <= 0.005 mIU/L thyrotropin [units/volum e] in serum or plasma by detection limit <= 0.005 mIU/L 1.27 uIU/m L low: 0.465u IU/mLh igh: 4.68uI U/mL normal Not Available Not Available 04/11/2024 21:51:03 04/10/19 25 04/10/2024 Influ clari virus A and B and SARS- CoV-2 (COVI D-19) and SARS- relat ed CoV RNA panel - Respi rator y syste m speci men by THANH with probe detec tion sars-cov-2 (covid-19) RNA [presence] in specimen by THANH with probe detection Negati ve normal Not Available Not Available 21:51:03 04/10/19 25 04/10/2024 Influ clari virus A and B and SARS- CoV-2 (COVI D-19) and SARS- relat ed CoV RNA panel - Respi rator y syste m speci men by THANH with probe detec tion influenza virus A RNA [presence] in respiratory system specimen by THANH with probe detection Positi ve Not Available Not Available 21:51:03 04/10/19 25 04/10/2024 Influ clari virus A and B and SARS- CoV-2 (COVI D-19) and SARS- relat ed CoV RNA panel - Respi rator y syste m speci men by THANH with probe detec tion influenza virus B RNA [presence] in respiratory system specimen by THANH with probe detection Negati ve normal Not Available Not Available 21:51:03 04/10/19 25 04/10/2024 CBC W Auto Diffe renti al panel - Blood leukocytes [#/volume] in blood by automated count 10.1 x10'3 /uL low: 4.2x10 '3/uLh igh: 10.8x1 0'3/uL normal Not Available Not Available 04/11/2024 21:51:03 04/10/19 25 04/10/2024 CBC W Auto Diffe renti al panel - Blood erythrocytes [#/volume] in blood by automated count 3.93 x10'6 /uL low: 4.1x10 '6/uLh igh: 5.8x10 '6/uL low Not Available Not Available 04/11/2024 21:51:03 04/10/19 25 04/10/2024 CBC W Auto Diffe giselle al panel - Blood hemoglobin [mass/volume ] in blood 12.5 g/dL low: 13.2g/ dLhigh : 17g/dL low Not Available Not Available 04/11/2024 21:51:03 04/10/19 25 04/10/2024 CBC W Auto Diffe giselle al panel - Blood hematocrit [volume fraction] of blood by automated count 36.2 % low: 39.3%h igh: 50% low Not Available Not Available 04/11/2024 21:51:03 04/10/19 25 04/10/2024 CBC W Auto Diffe coronati al panel - Blood MCV [entitic volume] by automated count 92.1 fL low: 80fLhi gh: 97fL normal Not Available Not Available 04/11/2024 21:51:03 04/10/19 25 04/10/2024 CBC W Auto Diffe coronati al panel - Blood MCH [entitic mass] by automated count 31.8 pg low: 27pghi gh: 33pg normal Not Available Not Available 04/11/2024 21:51:03 04/10/19 25 04/10/2024 CBC W Auto Diffe renti al panel - Blood MCHC [mass/volume ] by automated count 34.5 g/dL low: 31g/dL high: 36g/dL normal Not Available Not Available 04/11/2024 21:51:03 04/10/19 25 04/10/2024 CBC W Auto Diffe renti al panel - Blood erythrocyte distribution width [ratio] 14.6 % low: 11.8%h igh: 15.5% normal Not Available Not Available 04/11/2024 21:51:03 04/10/19 25 04/10/2024 CBC W Auto Diffe renti al panel - Blood platelets [#/volume] in blood by automated count 69 x10'3 /uL low: 150x10 '3/uLh igh: 400x10 '3/uL low Not Available Not Available 04/11/2024 21:51:03 04/10/19 25 04/10/2024 CBC W Auto Diffe renti al panel - Blood platelet mean volume [entitic volume] in blood by automated count 12.4 fL low: 9fLhig h: 12.4fL normal Not Available Not Available 04/11/2024 21:51:03 04/10/19 25 04/10/2024 CBC W Auto Diffe renti al panel - Blood neutrophils/ 100 leukocytes in blood 93 % low: 39%hig h: 72% high Not Available Not Available 04/11/2024 21:51:03 04/10/19 25 04/10/2024 CBC W Auto Diffe renti al panel - Blood band form neutrophils/ 100 leukocytes in blood 1 % low: 0%high : 3% normal Not Available Not Available 04/11/2024 21:51:03 04/10/19 25 04/10/2024 CBC W Auto Diffe renti al panel - Blood lymphocytes/ 100 leukocytes in blood 4 % low: 16%hig h: 47% low Not Available Not Available 04/11/2024 21:51:03 04/10/19 25 04/10/2024 CBC W Auto Diffe renti al panel - Blood monocytes/10 0 leukocytes in blood 2 % low: 5%high : 12% low Not Available Not Available 04/11/2024 21:51:03 04/10/19 25 04/10/2024 CBC W Auto Diffe renti al panel - Blood neutrophils [#/volume] in blood 9.58 x10'3 /uL low: 1.5x10 '3/uLh igh: 8x10'3 /uL high Not Available Not Available 04/11/2024 21:51:03 04/10/19 25 04/10/2024 CBC W Auto Diffe renti al panel - Blood nucleated erythrocytes /100 leukocytes [ratio] in blood 0 % high: 0% normal Not Available Not Available 04/11/2024 21:51:03 04/10/19 25 04/10/2024 CBC W Auto Diffe renti al panel - Blood nucleated erythrocytes [#/volume] in blood by automated count 0 x10'3 /uL normal Not Available Not Available 04/11/19 21:51:03 04/10/19 25 04/10/2024 Lacta te [Mole s/vol ume] in Serum or Plasm a lactate [moles/volum e] in serum or plasma 2.3 mmol/ L low: 0.7mmo l/Lhig h: 1.9mmo l/L high Not Available Not Available 04/11/2024 21:51:03 04/10/19 25 04/10/2024 Compr ehens amandeep metab olic 1999 panel - Serum or Plasm a sodium [moles/volum e] in blood 140 mmol/ L low: 137mmo l/Lhig h: 145mmo l/L normal Not Available Not Available 04/11/2024 21:51:03 04/10/19 25 04/10/2024 Compr ehens amandeep metab olic 1999 panel - Serum or Plasm a potassium [moles/volum e] in serum or plasma 3 mmol/ L low: 3.5mmo l/Lhig h: 5.1mmo l/L low Not Available Not Available 04/11/2024 21:51:03 04/10/19 25 04/10/2024 Compr ehens amandeep metab olic 1999 panel - Serum or Plasm a chloride [moles/volum e] in serum or plasma 108 mmol/ L low: 98mmol /Lhigh : 107mmo l/L high Not Available Not Available 04/11/2024 21:51:03 04/10/19 25 04/10/2024 Compr ehens amandeep metab olic 1999 panel - Serum or Plasm a carbon dioxide, total [moles/volum e] in serum or plasma 20 mmol/ L low: 22mmol /Lhigh : 30mmol /L low Not Available Not Available 04/11/2024 21:51:03 04/10/19 25 04/10/2024 Compr ehens amandeep metab olic 1999 panel - Serum or Plasm a anion gap in serum or plasma 15 mmol/ L low: 14mmol /Lhigh : 22mmol /L normal Not Available Not Available 04/11/2024 21:51:03 04/10/19 25 04/10/2024 [facility] 1999 panel - Serum or Plasm a glucose [mass/volume ] in serum or plasma 120 mg/dL low: 70mg/d Lhigh: 99mg/d L high Not Available Not Available 04/11/2024 21:51:03 04/10/19 25 04/10/2024 [facility] 1999 panel - Serum or Plasm a urea nitrogen [mass or moles/volume ] in serum or plasma 16 mg/dL low: 8mg/dL high: 19mg/d L normal Not Available Not Available 04/11/2024 21:51:03 04/10/19 25 04/10/2024 [place] [address] panel - Serum or Plasm a creatinine [mass/volume ] in serum or plasma 0.89 mg/dL low: 0.66mg /dLhig h: 1.25mg /dL normal Not Available Not Available 04/11/2024 21:51:03 04/10/19 25 04/10[facility]2024 [facility] panel - Serum or Plasm a glomerular filtration rate/1.73 sq M.predicted [volume rate/area] in serum, plasma or blood >60 normal Not Available Not Available 04/01 21:51:03 04/10/19 25 04/10/2024 [facility] 1999 panel - Serum or Plasm a alkaline phosphatase [enzymatic activity/vol ume] in serum or plasma 123 U/L low: 38U/Lh igh: 126U/L normal Not Available Not Available 04/11/2024 21:51:03 04/10/19 25 04/[facility]24 [facility] [place] [address] [facility] - Serum or Plasm a alanine aminotransfe rase [enzymatic activity/vol ume] in serum or plasma 29 U/L low: 0U/Lhi gh: 50U/L normal Not Available Not Available 04/11/2024 21:51:03 04/10/19 25 04/10/[address] [facility] panel - Serum or Plasm a aspartate aminotransfe rase [enzymatic activity/vol ume] in serum or plasma 33 U/L low: 15U/Lh igh: 46U/L normal Not Available Not Available 04/11/2024 21:51:03 04/10/19 25 04/10/2024 [facility] panel - Serum or Plasm a bilirubin.to paul [mass/volume ] in serum or plasma 1.1 mg/dL low: 0.2mg/ dLhigh : 1.3mg/ dL normal Not Available Not Available 04/11/2024 21:51:03 04/10/19 25 04/10/2024 [facility] 1999 panel - Serum or Plasm a calcium [mass/volume ] in serum or plasma 9.8 mg/dL low: 8.4mg/ dLhigh : 10.2mg /dL normal Not Available Not Available 04/11/2024 21:51:03 04/10/19 25 04/10/2024 [facility] panel - Serum or Plasm a protein [mass/volume ] in serum or plasma 8.6 g/dL low: 6.3g/d Lhigh: 8.2g/d L high Not Available Not Available 04/11/2024 21:51:03 04/10/19 25 04/10/2024 [facility] [place] [address] panel - Serum or Plasm a albumin [mass/volume ] in serum or plasma 4.6 g/dL low: 3.4g/d Lhigh: 5g/dL normal Not Available Not Available 04/11/2024 21:51:03 04/10/19 25 04/10/2024 [facility] [address] 1999 panel - Serum or Plasm a globulin [mass/volume ] in serum 4 g/dL low: 2.6g/d Lhigh: 4.2g/d L normal Not Available Not Available 04/11/2024 21:51:03 04/10/19 25 04/10/2024 [facility] [facility] [facility] 2000 panel - Serum or Plasm a albumin/glob ulin [mass ratio] in serum or plasma 1.2 ratio low: 1ratio high: 2ratio normal Not Available Not Available 04/11/2024 21:51:03 04/11/19 25 04/11/2024 Mycop lasma pneum oniae IgM Ab [Unit s/vol ume] in Serum by Immun oassa y mycoplasma pneumoniae IgM Ab [units/volum e] in serum by immunoassay <770 text: 0-769 normal Not Available Not Available 04/19/2024 23:49:19 04/11/19 25 04/11/2024 [facility] al panel - Blood leukocytes [#/volume] in blood by automated count 4.6 x10'3 /uL low: 4.2x10 '3/uLh igh: 10.8x1 0'3/uL normal Not Available Not Available 04/19/2024 23:49:18 04/11/19 25 04/11/2024 [facility] rent[facility] al panel - Blood erythrocytes [#/volume] in blood by automated count 3.29 x10'6 /uL low: 4.1x10 '6/uLh igh: 5.8x10 '6/uL low Not Available Not Available 04/19/2024 23:49:18 04/11/19 25 04/11/2024 [facility] al panel - Blood hemoglobin [mass/volume ] in blood 10.3 g/dL low: 13.2g/ dLhigh : 17g/dL low Not Available Not Available 04/19/2024 23:49:18 04/11/19 25 04/11/2024 [facility] panel - Blood hematocrit [volume fraction] of blood by automated count 30.1 % low: 39.3%h igh: 50% low Not Available Not Available 04/19/2024 23:49:18 04/11/19 25 04/11/2024 [facility] panel - Blood MCV [entitic volume] by automated count 91.5 fL low: 80fLhi gh: 97fL normal Not Available Not Available 04/19/2024 23:49:18 04/11/19 25 04/11/2024 [facility] al panel - Blood MCH [entitic mass] by automated count 31.3 pg low: 27pghi gh: 33pg normal Not Available Not Available 04/19/2024 23:49:18 04/11/19 25 04/11/2024 [facility] renti al panel - Blood MCHC [mass/volume ] by automated count 34.2 g/dL low: 31g/dL high: 36g/dL normal Not Available Not Available 04/19/2024 23:49:18 04/11/19 25 04/11/2024 [facility] al panel - Blood erythrocyte distribution width [ratio] 14.6 % low: 11.8%h igh: 15.5% normal Not Available Not Available 04/19/2024 23:49:18 04/11/19 25 04/11/2024 [facility] al panel - Blood platelets [#/volume] in blood by automated count 56 x10'3 /uL low: 150x10 '3/uLh igh: 400x10 '3/uL low Not Available Not Available 04/19/2024 23:49:18 04/11/19 25 04/11/2024 [facility] al panel - Blood platelet mean volume [entitic volume] in blood by automated count 12.4 fL low: 9fLhig h: 12.4fL normal Not Available Not Available 04/19/2024 23:49:18 04/11/19 25 04/11/2024 [facility] al panel - Blood neutrophils/ 100 leukocytes in blood 93 % low: 39%hig h: 72% high Not Available Not Available 04/19/2024 23:49:18 04/11/19 25 04/11/2024 [facility] al panel - Blood lymphocytes/ 100 leukocytes in blood 6 % low: 16%hig h: 47% low Not Available Not Available 04/19/2024 23:49:18 04/11/19 25 04/11/2024 [facility] rent[facility] al panel - Blood monocytes/10 0 leukocytes in blood 1 % low: 5%high : 12% low Not Available Not Available 04/19/2024 23:49:18 04/11/19 25 04/11/2024 [facility] renti al panel - Blood neutrophils [#/volume] in blood 4.16 x10'3 /uL low: 1.5x10 '3/uLh igh: 8x10'3 /uL normal Not Available Not Available 04/19/2024 23:49:18 04/11/19 25 04/11/2024 [facility] rent[facility] al panel - Blood nucleated erythrocytes /100 leukocytes [ratio] in blood 0 % high: 0% normal Not Available Not Available 04/19/2024 23:49:18 04/11/19 25 04/11/2024 [facility] rent[facility] al panel - Blood nucleated erythrocytes [#/volume] in blood by automated count 0 x10'3 /uL normal Not Available Not Available 04/19/19 23:49:18 04/11/19 25 04/11/2024 [facility] rent[facility] al panel - Blood platelets large [presence] in blood by light microscopy Savanaha richelle data interp retati on normal Not Available Not Available 23:49:18 04/11/19 25 04/11/2024 Lacta te [Mole s/vol ume] in Serum or Plasm a lactate [moles/volum e] in serum or plasma 1.1 mmol/ L low: 0.7mmo l/Lhig h: 1.9mmo l/L normal Not Available Not Available 04/11/2024 21:51:04 04/11/19 25 04/11/2024 Compr ehens amandeep metab olic 1999 panel - Serum or Plasm a sodium [moles/volum e] in blood 139 mmol/ L low: 137mmo l/Lhig h: 145mmo l/L normal Not Available Not Available 04/11/2024 21:51:03 04/11/19 25 04/11/2024 Compr ehens maandeep metab olic 1999 panel - Serum or Plasm a potassium [moles/volum e] in serum or plasma 4.3 mmol/ L low: 3.5mmo l/Lhig h: 5.1mmo l/L normal Not Available Not Available 04/11/2024 21:51:03 04/11/19 25 04/11/2024 Compr ehens amandeep metab olic 1999 panel - Serum or Plasm a chloride [moles/volum e] in serum or plasma 110 mmol/ L low: 98mmol /Lhigh : 107mmo l/L high Not Available Not Available 04/11/2024 21:51:03 04/11/19 25 04/11/2024 [facility] 1999 panel - Serum or Plasm a carbon dioxide, total [moles/volum e] in serum or plasma 24 mmol/ L low: 22mmol /Lhigh : 30mmol /L normal Not Available Not Available 04/11/2024 21:51:03 04/11/19 25 04/11/2024 Compr ehens amandeep metab olic 1999 panel - Serum or Plasm a anion gap in serum or plasma 9.3 mmol/ L low: 14mmol /Lhigh : 22mmol /L low Not Available Not Available 04/11/2024 21:51:03 04/11/19 25 04/11/2024 [facility] olic 1999 panel - Serum or Plasm a glucose [mass/volume ] in serum or plasma 141 mg/dL low: 70mg/d Lhigh: 99mg/d L high Not Available Not Available 04/11/2024 21:51:03 04/11/19 25 04/11/2024 [facility] panel - Serum or Plasm a urea nitrogen [mass or moles/volume ] in serum or plasma 16 mg/dL low: 8mg/dL high: 19mg/d L normal Not Available Not Available 04/11/2024 21:51:03 04/11/19 25 04/11/2024 [facility] am[facility] metab [facility] 1999 panel - Serum or Plasm a creatinine [mass/volume ] in serum or plasma 0.78 mg/dL low: 0.66mg /dLhig h: 1.25mg /dL normal Not Available Not Available 04/11/2024 21:51:03 04/11/19 25 04/11/2024 [facility] 1999 panel - Serum or Plasm a glomerular filtration rate/1.73 sq M.predicted [volume rate/area] in serum, plasma or blood >60 normal Not Available Not Available 04/01 21:51:03 04/11/19 25 04/11/2024 [facility] 1999 panel - Serum or Plasm a alkaline phosphatase [enzymatic activity/vol ume] in serum or plasma 88 U/L low: 38U/Lh igh: 126U/L normal Not Available Not Available 04/11/2024 21:51:03 04/11/19 25 04/11/2024 Compr [facility] amandeep [facility] olic 1999 panel - Serum or Plasm a alanine aminotransfe rase [enzymatic activity/vol ume] in serum or plasma 20 U/L low: 0U/Lhi gh: 50U/L normal Not Available Not Available 04/11/2024 21:51:03 04/11/19 25 04/11/2024 Compr ehens amandeep metab olic 1999 panel - Serum or Plasm a aspartate aminotransfe rase [enzymatic activity/vol ume] in serum or plasma 25 U/L low: 15U/Lh igh: 46U/L normal Not Available Not Available 04/11/2024 21:51:03 04/11/19 25 04/11/2024 Compr [facility] amandeep metab olic 1999 panel - Serum or Plasm a bilirubin.to paul [mass/volume ] in serum or plasma 0.4 mg/dL low: 0.2mg/ dLhigh : 1.3mg/ dL normal Not Available Not Available 04/11/2024 21:51:03 04/11/19 25 04/11/2024 Compr [facility] am[facility]ep [facility] olic 1999 panel - Serum or Plasm a calcium [mass/volume ] in serum or plasma 9.1 mg/dL low: 8.4mg/ dLhigh : 10.2mg /dL normal Not Available Not Available 04/11/2024 21:51:03 04/11/19 25 04/11/2024 Compr [facility] amandeep [facility] olic 1999 panel - Serum or Plasm a protein [mass/volume ] in serum or plasma 6.5 g/dL low: 6.3g/d Lhigh: 8.2g/d L normal Not Available Not Available 04/11/2024 21:51:03 04/11/19 25 04/11/2024 Compr [facility] amandeep [facility] o[facility] 1999 panel - Serum or Plasm a albumin [mass/volume ] in serum or plasma 3.6 g/dL low: 3.4g/d Lhigh: 5g/dL normal Not Available Not Available 04/11/2024 21:51:03 04/11/19 25 04/11/2024 Compr [facility] amandeep [facility] o[facility] 2000 panel - Serum or Plasm a globulin [mass/volume ] in serum 2.9 g/dL low: 2.6g/d Lhigh: 4.2g/d L normal Not Available Not Available 04/11/2024 21:51:03 04/11/19 25 04/11/2024 Compr ehens amandeep metab olic 1999 panel - Serum or Plasm a albumin/glob ulin [mass ratio] in serum or plasma 1.2 ratio low: 1ratio high: 2ratio normal Not Available Not Available 04/11/2024 21:51:03 04/11/19 25 04/11/2024 Magne sium [Mass /volu me] in Serum or Plasm a magnesium [mass/volume ] in serum or plasma 1.8 mg/dL low: 1.6mg/ dLhigh : 2.3mg/ dL normal Not Available Not Available 04/11/2024 21:51:03 02/09/20 23 02/08/2023 CT, brain , w/o contr ast No observ ation record ed. [address] [facility], [place], [address], 02/09/2023 10:21:56 02/09/20 23 02/08/2023 CT, abdom en + pelvi s, w/o contr ast No observ ation record ed. [address], [place], [address], 02/09/2023 09:27:59 03/08/19 24 11/13/2022 CT, abdom en + pelvi s, w/ contr ast No observ ation record ed. [email or web address] [facility]Central Scheduling[facility] [address], [place], [address], 03/24/2023 11:04:50 02/22/20 24 02/22/2024 XR, chest , 2 view No observ ation record ed. [address], [place], [address], 03/16/2024 09:01:51 04/10/19 25 04/10/2024 XR, chest , 2 view No observ ation record ed. [email or web address] [place], [address], 04/18/2024 12:28:34 04/11/19 25 04/11/2024 US, abdom en No observ ation record ed. [address] [place], [address], 04/18/2024 12:29:06 Result Notes None recorded. 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 CHANCE Ni, [place] - [facility] 8 10:24:31 Cirrhosis of liver 16336438 Active 2017 Chloé Pang [place], [place] [facility] 8 10:24:48 Chronic obstructive pulmonary disease 08615582 Active 2017 Chloé P[place] [facility] 8 10:24:53 Pulmonary emphysema 16669405 Active 2017 Chloé [place] [facility] 8 10:25:05 Acid reflux 020319489 Active 2017 Chloé P[place] [facility] 8 10:25:36 Seizure 45440244 Active 2019 Rica Jha [place] [facility] 0 10:07:23 Allergic disorder 964822573 Active 2021 Harsha Delgadillo PA-C Attn: Mary carias,[address] [facility], [place], [address], [place] [facility] 2 14:48:59 Acute sinusitis 17583804 Active 2021 Harsha Delgadillo PA-C Attn: Mary carias,[address] [facility], [place], [address], [place] [facility] 2 14:52:41 Screening for malignant neoplasm of prostate Active 2021 Harsha Delgadillo PA-C Attn: Accountin g,[address] [facility], [place], [address], [place] [facility] 2 14:57:01 Hyperlipide sergey screening Active 2021 Harsha Delgadillo PA-C Attn: Accountedilson g,[address] [facility], [place], [address], [place] [facility] 2 14:57:58 At increased risk of nutritional deficit 721312242 Active 2021 Harsha Delgadillo PA-C Attn: Accountin g,[address] [facility], [place], [address], [place] [facility] 2 14:59:25 Underweight 448628933 Active 2021 Harsha Delgadillo PA-C Attn: Accountin g,[address] [facility], [place], [address], [place] [facility] 2 15:01:02 Esophageal varices 48139740 Active 2021 Harsha Delgadillo PA-C Attn: Accountin g,[address] [facility], [place], [address], [place] [facility] 2 21:24:38 Chronic back pain 096719501 Active 2021 Lian Lamb MD Attn: Accountin g,[address] [facility], [place], [address], [place] [facility] 2 17:37:21 Nausea 449411437 Active 2022 Lian Lamb MD Attn: Accountin g,[address] [facility], [place], [address], [place] [facility] 3 15:47:03 Chest wall pain 649074179 Active 2022 Lian Lamb MD Attn: Accountin g,[address] [facility], [place], [address], [place] [facility] 3 15:50:48 Hepatic encephalopa thy 09536059 Active 2022 Lian Lamb MD Attn: Mary carias,[address] [facility], [place], [address], [place] [facility] 3 15:53:26 Hiatal hernia 25148050 Active 2022 Lian Lamb MD Attn: Mary aretha,[address] [facility], [place], [address], [place] [facility] 3 13:16:44 Active immunizatio n Active 2022 Lian Lamb MD Attn: Mary carias,[address] [facility], [place], [address], [place] [facility] 3 13:41:15 Administrat ion of diphtheria and tetanus vaccine Active 2022 Lian Lamb MD Attn: Mary carias,[address] [facility], [place], [address], [place] [facility] 3 13:42:22 Medication monitoring Active 2022 Lian Lamb MD Attn: Mary carias,[address] [facility], [place], [address], [place] [facility] 3 19:46:29 Screening for malignant neoplasm of colon Active 2022 Lian Lamb MD Attn: Mary carias,[address] [facility], [place], [address], [place] [facility] 3 11:19:12 Bronchitis 47455634 Active 2022 Lian Lamb MD Attn: Mary carias,[address] [facility], [place], [address], [place] [facility] 3 16:54:12 Cough 17267104 Active 2022 Lian Lamb MD Attn: Mary carias,[address] [facility], [place], [address], [place] [facility] 3 03:45:13 Tobacco dependence syndrome 67209106 Active 2022 Lian Lamb MD Attn: Mary carias[address], [place], [address], [facility] - [facility] 3 03:46:31 History of thrombocyto penia 9606427279002 8 Active 2023 Lian Lamb MD Attn: Mary carias,[address], [place], [address], [facility] 4 11:26:13 Paresthesia 54085594 Active 2024 Lian Lamb MD Attn: Mary carias,[address], [place], [address], [facility] - [facility] 5 17:03:25 Notes:Bulging disc 3 of them and cracked vertebre Some problems listed in Documents: #[id number], #[id number], #[id number], #[id number], #[id number], #[id number], #[id number] could not be added to this patient's chart. Please review these documents and add these problems to the patient's chart manually as needed. Problem Notes None recorded. Procedures Surgical History Date Name Laterality Status Provider Name and Address Organization Details Recorded Time 03/01/19 colonoscopy completed Iraj Serna MA [facility] 05/14/2021 11:41:04 excision of colon completed Chloé Pang MA [facility] 12/30/2017 10:28:49 endoscopy completed Chloé Pang MA [facility] 12/30/2017 10:29:31 Knee Surgery completed Iraj Serna MA [facility] 05/14/2021 11:38:27 Cholecystectomy completed Iraj Serna MA [facility] 05/14/2021 11:38:51 Imaging Results Imaging Date Name Status LastModified by Organiz ation Details LastModified Time 02/08/2023 CT, brain, w/o contrast completed [address], [place], [address], 02/09/2023 10:21:56 02/08/2023 CT, abdomen + pelvis, w/o contrast completed [address], [place], [address], 02/09/2023 09:27:59 11/13/2022 CT, abdomen + pelvis, w/ [facility] [address], [place], [address], 03/24/2023 11:04:50 02/22/2024 XR, chest, 2 view completed [address] [facility] [address], [place], [address], 03/16/2024 09:01:51 04/10/2024 XR, chest, 2 view completed [email or web address] [facility] [address] [place], [address], 04/18/2024 12:28:34 04/11/2024 US, abdomen completed [email or web address] [facility] [address] [place], [address], 04/18/2024 12:29:06 Procedure Notes None recorded. Medical Equipment None Reported. Allergies Allergen ID Allergen Name Allergen Category Reaction Reaction Severity Criticality Documentation Date Start Date Code Code System Note Provider Name and Address Organization Details Recorded Time 769815 fentanyl medicatio n Not available Not available Not available 12/30/2017 4337 RxNorm Not Available Not Available Not Available 298674 Cipro medicatio n Not available Not available Not available 12/30/2017 71335 3 RxNorm Not Available Not Available Not Available 538150 bupropion Not available other Not available Not available 10/03/2019 81908 RxNorm Not Available Not Available Not Available 585985 wasp venoms environme nt Not available Not available Not available 05/14/2021 91936 RxNorm Not Available Not Available Not Available 552291 hornet venom environme nt other severe Not available 07/10/2021 80058 UNK Not Available Not Available Not Available Medications Name Sig Start Date Stop Date Status Note LastModified by Organization Details LastModified Time cyclobenzap rine 10 mg tablet Take 1 tablet 3 times a day by oral route. 05/14 completed Not Available Not Available Not Available hydrocodone 7.5 mg-ibuprofe n 200 mg tablet Take 1 tablet 5 times a day by oral route. 04/14 completed Not Available Not Available Not Available clonidine HCl 0.1 mg tablet 05/14 completed Not Available Not Available Not Available prednisone 10 mg tablet Take in the morning with food in your stomach, 6,6,5,5,4 ,4,3,3,2, 2,1, and 1 over the next 12 days. 05/02 completed Not Available Not Available Not Available doxycycline hyclate 100 mg capsule TAKE 1 CAPSULE BY MOUTH TWICE DAILY FOR 5 DAYS 03/22 completed Not Available Not Available Not Available nicotine 14 mg/24 hr daily transdermal patch Apply 1 patch every day by transderm al route as directed for 14 days. 09/20 completed Not Available Not Available Not Available albuterol sulfate 2.5 mg/3 mL (0.083 %) solution for nebulizatio n INHALE ONE VIAL (3ML) VIA NEBULIZER FIVE TIMES DAILY 04/08 completed Not Available Not Available Not Available azithromyci n 250 mg tablet TAKE 2 TABLETS BY MOUTH ON DAY 1, AND THEN TAKE 1 TABLET BY MOUTH ONCE A DAY ON DAY 2 THROUGH DAY 5 04/08 completed Not Available Not Available Not Available ibuprofen 800 mg tablet 07/06 completed Not Available Not Available Not Available levetiracet am 500 mg tablet TAKE 1 TABLET BY MOUTH TWICE DAILY 09/21 completed Not Available Not Available Not Available valacyclovi r 1 gram tablet 03/17 completed Not Available Not Available Not Available hydrocodone 5 mg-acetamin ophen 325 mg tablet TAKE 1 TABLET BY MOUTH THREE TIMES DAILY NEEDED active Not Available Not Available No t Available ondansetron HCl 4 mg tablet TAKE 1 TABLET BY MOUTH EVERY 6 HOURS active Not Available Not Available No t Available prednisone 20 mg tablet TAKE 2 TABLETS BY MOUTH ONCE DAILY FOR 5 DAYS 03/22 completed Not Available Not Available Not Available meclizine 12.5 mg tablet 07/06 completed Not Available Not Available Not Available metronidazo le 500 mg tablet TAKE 1 TABLET BY MOUTH THREE TIMES DAILY FOR 7 DAYS 03/22 completed Not Available Not Available Not Available dextrometho fernanda enesin 10 mg-100 mg/5 mL oral syrup Take 10 mL 4 times a day by oral route. 09/20 completed Not Available Not Available Not Available omeprazole 40 mg capsule,del ayed release TAKE 1 CAPSULE BY MOUTH ONCE DAILY BEFORE A MEAL active Not Available Not Available No t Available Nicotrol 10 mg inhalation cartridge Inhale 6 cartridge s every day by inhalatio n route for 42 days. 09/20 completed Not Available Not Available Not Available sildenafil 100 mg tablet TAKE 1 TABLET BY MOUTH NEEDED active Not Available Not Available No t Available bupropion HCl SR 100 mg tablet,12 hr sustained-r elease 05/14 completed Not Available Not Available Not Available ondansetron 8 mg disintegrat ing tablet DISSOLVE 1 TABLET IN MOUTH EVERY 4 TO 6 HOURS NEEDED FOR NAUSEA AND VOMITING 09/20 completed Not Available Not Available Not Available cyproheptad ine 4 mg tablet TAKE 1 TABLET BY MOUTH ONCE DAILY WITH SUPPER FOR 30 DAYS 07/06 completed Not Available Not Available Not Available bupropion HCl 100 mg tablet Take 1 tablet twice a day by oral route. 05/14 completed Not Available Not Available Not Available amoxicillin 875 mg tablet TAKE 1 TABLET BY MOUTH EVERY 12 HOURS FOR 10 DAYS 09/21 completed Not Available Not Available Not Available tamsulosin 0.4 mg capsule Take 1 capsule by mouth once daily 2024 active Not Available Not Available Not Avai lable gabapentin 800 mg tablet Take 1 tablet by mouth 4 times daily active Not Available Not Available No t Available baclofen 10 mg tablet TAKE 1 TABLET BY MOUTH THREE TIMES DAILY NEEDED FOR 30 DAYS 07/06 completed Not Available Not Available Not Available benzonatate 100 mg capsule Take 1 capsule 3 times a day by oral route. 09/20 completed Not Available Not Available Not Available doxycycline monohydrate 100 mg capsule Take 1 capsule twice a day by oral route. 05/14 completed Not Available Not Available Not Available cephalexin 500 mg capsule TAKE 1 CAPSULE BY MOUTH EVERY 6 HOURS FOR 7 DAYS 07/06 completed Not Available Not Available Not Available pantoprazol e 40 mg tablet,april yed release TAKE 1 TABLET BY MOUTH ONCE DAILY BEFORE A MEAL active Not Available Not Available No t Available clonazepam 2 mg tablet TAKE 1 TABLET BY MOUTH BEFORE THE CT SCAN AND ANOTHER ONE IF NEEDED AT TIME OF PROCEDURE . 05/14 completed Not Available Not Available Not Available nicotine 21 mg/24 hr daily transdermal patch Apply 1 patch every day by transderm al route as directed for 42 days. 09/20 completed Not Available Not Available Not Available tenofovir disoproxil fumarate 300 mg tablet TAKE 1 TABLET BY MOUTH ONCE DAILY active Not Available Not Available No t Available levetiracet am 750 mg tablet TAKE 2 TABLETS BY MOUTH TWICE DAILY active Not Available Not Available No t Available lorazepam 1 mg tablet TAKE 1 TABLET BY MOUTH EVERY 12 HOURS FOR 3 DOSES 09/21 completed Not Available Not Available Not Available epinephrine 0.3 mg/0.3 mL injection, auto-inject or Take 1 auto as needed by injection route for 30 days. 07/06 completed Not Available Not Available Not Available ibuprofen 600 mg tablet TAKE 1 TABLET BY MOUTH EVERY 6 HOURS NEEDED FOR PAIN active Not Available Not Available No t Available levofloxaci n 750 mg tablet TAKE 1 TABLET BY MOUTH ONCE DAILY FOR 7 DAYS 09/21 completed Not Available Not Available Not Available albuterol sulfate HFA 90 mcg/actuati on aerosol inhaler INHALE 2 PUFFS BY MOUTH 4 TIMES DAILY active Not Available Not Available No t Available ondansetron 4 mg disintegrat ing tablet Place 1 tablet 3 times a day by transling ual route as needed. 2024 active Not Available Not Available Not Avai lable cefdinir 300 mg capsule TAKE 1 CAPSULE BY MOUTH TWICE DAILY FOR 10 DAYS 09/20 completed Not Available Not Available Not Available fluticasone propionate 50 mcg/actuati on nasal spray,suspe nsion 07/10 completed Not Available Not Available Not Available amoxicillin 875 mg-potassiu m clavulanate 125 mg tablet TAKE 1 TABLET BY MOUTH EVERY 12 HOURS FOR 5 DAYS 03/17 completed Not Available Not Available Not Available nicotine 7 mg/24 hr daily transdermal patch Apply 1 patch every day by transderm al route as directed for 14 days. 09/20 completed Not Available Not Available Not Available oxycodone 5 mg tablet Take 1 tablet 4 times a day by oral route as needed. 04/16 completed Not Available Not Available Not Available Oyster Shell Calcium-Vit rocha D3 500 mg-5 mcg (200 unit) tablet Take 1 tablet 3 times a day by oral route with meals. 05/14 completed Not Available Not Available Not Available duloxetine 30 mg capsule,del ayed release Take 1 capsule every day by oral route for 30 days. 07/06 completed Not Available Not Available Not Available duloxetine 60 mg capsule,del ayed release Take 1 capsule every day by oral route for 30 days. 07/06 completed Not Available Not Available Not Available Constulose 10 gram/15 mL oral solution TAKE 30ML BY MOUTH ONCE DAILY 09/20 completed Not Available Not Available Not Available pregabalin 200 mg capsule Take 1 capsule twice a day by oral route. 05/14 completed Not Available Not Available Not Available ramelteon 8 mg tablet 09/20 completed Not Available Not Available Not Available Lyrica 50 mg capsule Take 1 capsule 3 times a day by oral route. 12/30 completed Not Available Not Available Not Available Ventolin HFA 2 puffs as needed 04/14 completed Not Available Not Available Not Available levetiracet am 1,000 mg tablet TAKE 2 TABLETS BY MOUTH TWICE DAILY active Not Available Not Available No t Available Symbicort 160 mcg-4.5 mcg/actuati on HFA aerosol inhaler INHALE 2 PUFFS TWO TIMES DAILY. RINSE MOUTH WITH WATER AFTER USE. DO NOT SWALLOW active Not Available Not Available No t Available oxycodone 20 mg tablet TAKE 1 TABLET BY MOUTH TWICE DAILY NEEDED 05/14 completed Not Available Not Available Not Available oxycodone 10 mg tablet Take 1 tablet every 6 hours by oral route. 11/26 completed Not Available Not Available Not Available Xifaxan 550 mg tablet 09/20 completed Not Available Not Available Not Available lactulose 10 gram/15 mL (15 mL) oral solution Take 5 mL 3 times a day by oral route. 09/21 completed Not Available Not Available Not Available Pennsaid 20 mg/gram/act uation (2 %) topical soln in metered-dos e pump APPLY 2 PUMPS (40 MG) TO THE AFFECTED KNEE(S) BY TOPICAL ROUTE 2 TIMES PER DAY 07/06 completed Not Available Not Available Not Available potassium chloride ER 20 mEq tablet,exte nded release TAKE 1 TABLET BY MOUTH TWICE DAILY FOR 5 DAYS 05/14 completed Not Available Not Available Not Available oxycodone ER 60 mg tablet,daniel h resistant,e xtended release 12 hr Take 1 tablet every 12 hours by oral route. 03/12 completed Not Available Not Available Not Available Breo Ellipta 200 mcg-25 mcg/dose powder for inhalation INHALE 1 PUFF BY MOUTH ONCE DAILY active Not Available Not Available No t Available Narcan 4 mg/actuatio n nasal spray Take 2 sprays by nasal route as needed. 05/14 completed Not Available Not Available Not Available Vitals Date Recorded Body height Body mass index (BMI) Body weight Heart rate Body temperature Oxygen saturation Oxygen saturation in Arterial blood by Pulse oximetry Systolic blood pressure Diastolic blood pressure Provider Name and Address Organization Details Last Updated DateTime 3 173.99 cm 18.4 kg/m2 91300.8 6 g 103 /min 98.1 [degF] 98 % 98 % 128 mm[Hg] 82 mm[Hg] Micaela Lancaster MA [facility] 3 16:12:21 Date Recorded Body height Body temperature Oxygen saturation Oxygen saturation in Arterial blood by Pulse oximetry Body mass index (BMI) Body weight Heart rate Systolic blood pressure Diastolic blood pressure Provider Name and Address Organization Details Last Updated DateTime 4 173.99 cm 98.1 [degF] 98 % 98 % 18 kg/m2 07321.0 8 g 73 /min 130 mm[Hg] 76 mm[Hg] Micaela Lancaster MA [facility] 4 14:55:27 Date Recorded Body height Body mass index (BMI) Body weight Oxygen saturation Oxygen saturation in Arterial blood by Pulse oximetry Heart rate Systolic blood pressure Diastolic blood pressure Provider Name and Address Organization Details Last Updated DateTime 4 173.99 cm 18.1 kg/m2 74688.6 8 g 98 % 98 % 81 /min 128 mm[Hg] 84 mm[Hg] Micaela Lancaster MA [facility] 4 12:43:44 Date Recorded Body height Body mass index (BMI) Body weight Oxygen saturation Oxygen saturation in Arterial blood by Pulse oximetry Heart rate Systolic blood pressure Diastolic blood pressure Provider Name and Address Organization Details Last Updated DateTime 4 173.99 cm 18.7 kg/m2 82736.0 5 g 98 % 98 % 73 /min 132 mm[Hg] 72 mm[Hg] Micaela Lancaster MA [facility] 4 10:42:58 Date Recorded Body height Body mass index (BMI) Body weight Heart rate Oxygen saturation Oxygen saturation in Arterial blood by Pulse oximetry Systolic blood pressure Diastolic blood pressure Provider Name and Address Organization Details Last Updated DateTime 5 173.99 cm 18.3 kg/m2 68106.4 1 g 64 /min 99 % 99 % 130 mm[Hg] 76 mm[Hg] Gricelda Delgadillo MA [facility] 5 16:32:43 Social History Question Answer Notes LastModified by Organizat ion Details LastModified Time Tobacco Smoking Status Former Smoker Micaela Lancaster MA [facility], [facility] 04/08/2022 15:26:22 Do You Have An Advance Directive? No Information not available 12/30/2017 What Is Your Level Of Alcohol Consumption? None Information not available 12/30/2017 What Is Your Level Of Caffeine Consumption? Moderate Information not available 12/30/2017 Can Child Swim? Yes Informati on not available 12/30/2017 How Much Tobacco Do You Chew? None Information not available 12/30/2017 Are You Currently Employed? No Information not available 12/30/2017 What Type Of Diet Are You Following? REGULAR Information not available 12/30/2017 Which Illicit Or Recreational Drugs Have You Used? No Information not available 12/30/2017 Do You Or Have You Ever Used E-cigarettes Or Vape? Former User Of Electronic Cigarettes [email or web address] Information not available 10/10/2018 Education 12 Information no t available 12/30/2017 Swimming/diving Yes Informati on not available 12/30/2017 Are There Any Guns Present In Your Home? No Information not available 12/30/2017 Hard Of Hearing Or Deaf In One Or Both Ears? No Information not available 12/30/2017 Legally Blind In One Or Both Eyes? No Information no t available 12/30/2017 Live Alone Or With Others? With Others Information not available 12/30/2017 What Was The Date Of Your Most Recent Tobacco Screening? 03/22/2024 Information not available 03/22/2024 How Many Children Do You Have? 6 Information not available 12/30/2017 Do You Use Protection During Sex? Always Information not available 12/30/2017 Do You Use Your Seat Belt Or Car Seat Routinely? Yes Information not available 03/22/2024 Seat Belts Used Routinely Yes Information not available 12/30/2017 Are You Sexually Active? Yes Information not available 12/30/2017 Smoke Alarm In Home Yes Information not available 12/30/2017 At What Age Did You Start Smoking Tobacco? 17 Information not available 12/30/2017 Are You Passively Exposed To Smoke? Yes Information no t available 12/30/2017 Do You Or Have You Ever Used Smokeless Tobacco? Former Smokeless Tobacco User [email or web address] Information not available 10/10/2018 How Much Tobacco Do You Smoke? 0.5 PPD [email or web address] Information not available 05/14/2021 General Stress Level Low Information not available 12/30/2017 Do You Feel Stressed (tense, Restless, Nervous, Or Anxious, Or Unable To Sleep At Night)? [id number] Information not available 03/22/2024 Do You Use Sunscreen Routinely? Yes Information not available 12/30/2017 Has Tobacco Cessation Counseling Been Provided? No Information not available 04/08/2022 On What Date Was Tobacco Cessation Counseling Provided? 03/22/2024 Information not available 03/22/2024 How Many Years Have You Smoked Tobacco? 35 Information not available 12/30/2017 Do You Or Have You Ever Used Any Other Forms Of Tobacco Or Nicotine? No Information not available 04/08/2022 Sex: Male Functional Status Question Answer Note LastModified by Organization D etails LastModified Time Are you able to care for yourself? Yes Information not available 12/30/2017 What is your exercise level? Moderate Information not available 12/30/2017 Mental Status None recorded. Family History Relationship Description Onset Age of this Age Resolved Age Notes LastModified by Organization Details LastModified Time Father Myocardial infarction [email or web address] Not available 12/30 10:26:12 Father Cerebrovascu lar accident [email or web address] Not available 03/2017 10:26:21 Father Hypertensive disorder [email or web address] Not available 2017 10:26:32 Brother Hypertensive disorder [email or web address] Not available 04/29 11:39:18 Brother Hypercholest erolemia [email or web address] Not available 04/29 11:39:35 Notes:sister in october 10, 2019 due to liver cancer Medical History Condition Response Coronary Artery Disease N Other N Atrial Fibrillation N High Blood Pressure N Thyroid Problems N Kidney or Bladder Problems N GI Problems N Depression N COPD Y Blood Clots N Eating Disorder N Skin Problems N Anemia N Heart Attack ([place]) N Anxiety Disorder N Diabetes N Muscle, Joint, or Bone Problems Y Seizures/Epilepsy N Acid Reflux (GERD) Y Cancer Y Stroke N Asthma N Allergies Y ADHD N Substance Abuse N High Cholesterol N Hepatitis Y Liver Disease Y Schizophrenia N Headaches Y Heart Failure N Osteoporosis N Immunizations Vaccine Type Date Status Note Provider Nam e and Address Organization Details Recorded Time Tdap 6 completed Jazmin Shankar MD Attn: Accounting[address] [place], [address], [place] [facility] 12/25/2018 23:20:28 COVID-19, mRNA, LNP-S, PF, 100 mcg/0.5mL dose or 50 mcg/0.25mL dose 1 completed Randi Bellamy MA null, [place] [facility] 08/12/2020 14:33:38 Influenza, split virus, quadrivalent, preservative 9 completed Not Available [employer] 03/18/2019 02:41:59 pneumococcal polysaccharide PPV23 9 completed Not Available [employer] 03/18/2019 02:47:16 Tdap 3 completed Micaela Lancaster [place], [place] [facility] 07/29/2022 14:56:56 Influenza, split virus, trivalent, preservative completed Gricelda Delgadillo MA [facility], [facility] 03/23/2024 09:48:10 Past Encounters Encounter ID Performer Location Encounter Start Date Encounter Closed Date Diagnosis/Indication Diagnosis SNOMED-CT Code Diagnosis ICD10 Code Diagnosis Note [id number] Jazmin Shankar MD [facility] [address] [place] [address] 12/30/2017 10:08:17 12/30/2017 16:59:19 Neuropathy 483194930 G62.9 Gastroesop hageal reflux disease without esophagitis 684760089 K21.9 Standardiz ed adult depression screening tool completed 7540875444 33448 Z13.89 patient does not appear to be significan tly depressed. Chronic low back pain 27 3679051 M54.5 Cirrhosis of liver 87779 007 K74.60 discussed cirrhosis and liver masses with patient and recommende d getting back on the transplant list; he had been offered a liver before but declined it since he was feeling well and working to support his family. [id number] Jazmin Shankar MD [facility] [address] [place] [address] 09/02/2018 16:15:46 09/12/2018 09:09:46 Screening for malignant neoplasm of colon 993432493 Z12.11 Liver mass 360503914 R16 .0 [id number] Jazmin Shankar MD [facility] [address] [place] [address] 10/05/2018 11:14:03 10/12/2018 09:06:19 Malignant neoplasm of liver 05198780 C22.9 Liver mass 587657497 R16 .0 Moderate p ersistent asthma 040247708 J45.40 Neuropathy 879346988 G62 .9 Gastroesop hageal reflux disease without esophagitis 703432637 K21.9 [id number] Jazmin Shankar MD [facility] [address] [place] [address] 10/28/2018 14:23:42 11/01/2018 09:34:29 Malignant neoplasm of liver 86696374 C22.9 Standard ed adult depression screening tool completed 7590406683 78177 Z13.89 patient does not appear to be significan tly depressed. [id number] Jazmin Shankar MD [facility] [address] [place] [address] 12/20/2018 16:24:11 12/26/2018 08:50:23 Not up to date with immunizations 516455642 Z28.3 risks and benefits of immunizati ons reviewed, and patient agreed to receive shot Malignant neoplasm of liver 07680330 C22.9 [id number] Jazmin Shankar MD [facility] [address] [place] [address] 01/30/2019 13:20:31 02/06/2019 09:32:18 Acute exacerbation of chronic bronchitis 273245986 J44.1 Patient started on augmentin for 2 weeks; strongly advised to quit smoking. Malignant neoplasm of liver 78330473 C22.9 cancer has been treated; he is now on the transplant waiting list and close to the top. [id number] Jazmin Shankar MD [facility] [address] [place] [address] 03/16/2019 15:18:48 03/23/2019 10:31:43 Acute bronchitis 89978416 J20.9 Chicken soup, orange juice, popsicles, snow cones, slurpees, ice cream, tea with honey and lemon, hot lemonade, gatorade, and yogurt may make you feel better. [id number] Jazmin Shankar MD [facility] [address] [facility] [place] [address] 04/14/2019 12:10:45 04/17/2019 11:30:01 Trying to give up smoking 202997991 Z72.0 Patient has to quit smoking so he can get a liver transplant . [id number] Jazmin Shankar MD [facility] [address] [place] [address] 05/01/2019 09:54:57 05/02/2019 12:43:47 Malignant neoplasm of liver 85484433 C22.9 cancer has been treated; he is now on the transplant waiting list and close to the top. [id number] Jazmin Shankar MD [facility] [address] [place] [address] 07/21/2019 10:04:41 07/21/2019 15:35:06 [id number] Jazmin Shankar MD [facility] [address] [place] [address] 08/23/2019 10:08:03 08/28/2019 14:59:20 Neuropathy 701439126 G62.9 Malignant neoplasm of liver 39540790 C22.9 cancer has been treated; he is now on the transplant waiting list and close to the top. [id number] Jazmin Shankar MD [facility] [address] [place] [address] 11/27/2019 12:01:14 11/29/2019 11:31:50 Malignant neoplasm of liver 19802101 C22.9 cancer has been treated; he is now on the transplant waiting list and close to the top. [id number] Jazmin Shankar MD [facility] [address] [place] [address] 01/24/2020 14:03:37 01/29/2020 06:35:05 Malignant neoplasm of liver 28052787 C22.9 cancer has been treated; he is now off the transplant list due to smoking. Cirrhosis of liver 01407 007 K74.60 discussed cirrhosis and liver masses with patient and recommende d getting back on the transplant list; he had been offered a liver before but declined it since he was feeling well and working to support his family. Pulmonary emphysema 8743 3001 J43.9 Patient advised to quit smoking. [id number] Jazmin Shankar MD [facility] [address] [place] [address] 03/20/2020 14:05:12 03/25/2020 10:00:02 Opioid dependence 10570744 F11.20 Bilateral carpal tunnel syndrome 0056848587 9583166 G56.03 Awaiting transplantation of liver 557421760 Z76.82 can't get on the transplant list until he quits smoking, which has been just about impossible for him. Malignant neoplasm of liver 21450896 C22.9 cancer has been treated; he is now off the transplant list due to smoking. Cirrhosis of liver 007 K74.60 discussed cirrhosis and liver masses with patient and recommende d getting back on the transplant list; he had been offered a liver before but declined it since he was feeling well and working to support his family. Pulmonary emphysema 8743 3001 J43.9 Patient advised to quit smoking. Depression screening 171 704385 Z13.31 patient does not appear to be significan tly depressed. [id number] Jazmin Shankar MD [facility] [address] [place] [address] 08/12/2020 11:09:56 08/22/2020 08:01:13 Malignant neoplasm of liver 50990272 C22.[address] scan. [id number] Cedrick Barriga MD [facility] [address] [place] [address] 11/18/2020 08:06:17 11/20/2020 12:37:16 Seizure 91016700 R56.9 meds an follow up... seeing neurology. .. Malignant neoplasm of liver 85503618 C22.9 seeing specialist ... Gastroesop hageal reflux disease 815125498 K21.9 meds and follow up... Chronic ob structive pulmonary disease 99545298 J44.9 meds and follow up.. Benign pro static hyperplasia 574280550 N40.0 meds and follow up... [id number] [facility] [address] [place] [address] 01/27/2021 10:57:37 01/28/2021 10:00:24 Seizure 70078920 R56.9 meds an follow up... seeing neurology. .. possibly from high NH4+ level in past Malignant neoplasm of liver 72810053 C22.9 seeing specialist ... Gastroesop hageal reflux disease 492266963 K21.9 meds and follow up... Chronic ob structive pulmonary disease 41325348 J44.9 meds and follow up.. Benign pro static hyperplasia 304398546 N40.0 meds and follow up... Cirrhosis of liver 007 K74.[address] [facility] [id number] CHANCE Warner (Adult Med) [address] [place] [address] 05/14/2021 10:49:02 05/15/2021 09:56:39 Cirrhosis of liver 51541342 K74.60 Awaiting for the liver transplant , Pain of le ft knee joint 6562013732 61129 M25.562 History of left knee injury. Underweight 766305606 R6 3.6 On ensure supplement . 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 [id number] TENISHA Magaña (Adult Med) [address] [place] [address] 07/10/2021 13:54:46 07/11/2021 12:38:34 Pain of left knee joint 3693754109 70988 M25.562 Allergic disorder 821822 001 T78.40XA wasps and hornets Acute sinusitis 70631362 J01.90 Screening for malignant neoplasm of prostate 823967428 Z12.5 Type B vir al hepatitis 49981393 B19.10 Hyperlipid emia screening 970788829 Z13.220 Chronic ob structive pulmonary disease 26506526 J44.9 At [facility] risk of nutritional deficit 460468978 Z91.89 Underweight 598032401 R6 3.6 Seizure 04129134 R56.9 Cirrhosis of liver 007 K74.60 [id number] MD Perry Rizo (Adult Med) [address] [place] [address] 01/21/2022 16:03:06 01/29/2022 15:15:27 Gastroesophageal reflux disease 995543128 K21.9 Pain of le ft knee joint 2595350148 34410 M25.562 Seizure 75233282 R56.9 Cirrhosis of liver 007 K74.60 Esophageal varices 77423 008 I85.00 Pulmonary emphysema 8743 3001 J43.9 Chronic ob structive pulmonary disease 54786543 J44.9 Chronic back pain 014805 002 G89.29 [id number] MD Perry Rizo (Adult Med) [address] [place] [address] 04/08/2022 15:00:55 04/14/2022 14:55:50 Nausea 593835912 R11.0 Chest wall pain 98407541 6 R07.89 Hepatic encephalopathy 65299143 K76.82 [id number] MD Perry Rizo (Adult Med) [address] [place] [address] 07/06/2022 17:10:16 07/13/2022 17:10:31 Underweight 907706857 R63.6 Chronic back pain 479178 002 G89.29 Chest wall pain 09259497 6 R07.89 Hepatic encephalopathy 15489858 K76.82 Gastroesop hageal reflux disease 841810095 K21.9 Nausea 393836450 R11.0 [id number] MD Perry Rizo (Adult Med) [address] [place] [address] 07/29/2022 12:33:20 07/31/2022 09:18:05 Hiatal hernia 95346791 K44.9 Chronic back pain 469971 002 G89.29 Chest wall pain 37000603 6 R07.89 Active immunization 3387 9002 Z23 [id number] MD Perry Rizo (Adult Med) [address] [place] [address] 09/21/2022 10:48:04 09/22/2022 10:21:37 Chronic back pain 242163377 G89.29 Cirrhosis of liver 76598 007 K74.60 Medication monitoring 39 8093807 Z51.81 Pulmonary emphysema 8743 3001 J43.9 Screening for malignant neoplasm of prostate 524873611 Z12.5 Screening for malignant neoplasm of colon 349606505 Z12.11 Hepatic encephalopathy 31420062 K76.82 [id number] MD Perry Rizo (Adult Med) [address] [place] [address] 02/01/2023 15:51:04 02/03/2023 14:20:29 Bronchitis 98857855 J40 [id number] MD Perry Rizo (Adult Med) [address] [place] [address] 03/17/2023 14:31:41 03/23/2023 15:10:01 Cirrhosis of liver 67700051 K74.60 Chronic ob structive pulmonary disease 47645473 J44.9 Esophageal varices 14976 008 I85.00 [id number] MD Perry Rizo (Adult Med) [address] [place] [address] 09/21/2023 12:22:51 09/21/2023 13:08:18 Cirrhosis of liver 55574543 K74.60 Esophageal varices 15875 008 I85.00 Tobacco de pendence syndrome 33793051 F17.200 Chronic back pain 119544 002 G89.29 Hyperlipid emia screening 965729962 Z13.220 Pulmonary emphysema 8743 3001 J43.9 [id number] MD Perry Rizo (Adult Med) [address] [place] [address] 10/12/2023 10:26:33 10/15/2023 11:22:48 History of thrombocytopenia 7970103875 9108 Z86.2 [id number] CHANCE Goodman (Adult Med) [address] [place] [address] 03/22/2024 16:00:44 03/29/2024 16:37:46 Chronic obstructive pulmonary disease 09504656 J44.9 Cirrhosis of liver 007 K74.60 Seizure 26372699 R56.9 Tobacco de pendence syndrome 76928267 F17.200 Type B vir al hepatitis 28175004 B19.10 Paresthesia 68521840 R20 .2 Chronic back pain 005126 002 G89.29 Active immunization 3387 9002 Z23 Nausea 925102311 R11.0 Health Concerns Section Related Observation LastModified by Organization Detai ls LastModified Time None Recorded Concern Status LastModified by Organization Details LastModified Time None Recorded Advance Directives Directive N: Payers Encounter Date Sequence Insurance Name Policy Number Policy Norman Covered Member ID Norman Member ID Guarantor Name 02/01/2023 1 [facility] (MEDICARE REPLACEMENT/AD VANTAGE - PPO) [id number] Ronan Baez [id number] Isreal Baez 02/01/2023 2 [place]ARE OR MEDICARE REPLACEMENT PRIMARY) Isreal Baez [id number] Isreal Baez 03/17/2023 1 [employer] (MEDICARE REPLACEMENT/AD VANTAGE - PPO) [id number] Ronan Louis Baez [id number] Isreal Baez 03/17/2023 2 [place] MEDICARE REPLACEMENT [place]IMARY) Isreal Baez [id number] Isreal Nestor 09/21/2023 1 [employer] (MEDICARE REPLACEMENT/AD VANTAGE - PPO) [id number] Ronan Louis Baez [id number] Isreal Baez 09/21/2023 2 [place] OR MEDICARE REPLACEMENT PRIMARY) Isreal Baez [id number] Isreal Baez 10/12/2023 1 [employer] (MEDICARE REPLACEMENT/AD VANTAGE - PPO) [id number] Ronan Baez [id number] Isreal Baez 10/12/2023 2 [place] OR MEDICARE REPLACEMENT PRIMARY) Isreal Baez [id number] Isreal Baez 03/22/2024 1 [employer] (MEDICARE REPLACEMENT/AD VANTAGE - PPO) [id number] Ronan Baez [id number] Isreal Baez 03/22/2024 2 [place] OR MEDICARE REPLACEMENT PRIMARY) Isreal Baez [id number] Isreal Baez Notes Date Note Type Note Provider Name and Address Organization Details Recorded Time 02/01/2023 text/html Has been ill in the past week. 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 Unsure why he can no longer be seen at [facility] GI. Needs referral to be seen by GI at [facility]. Recently seen by urologist. Lian Lamb MD Attn: Accounting[address] [facility], [place], [address], [place] [facility] 09/21/2023 13:23:37 10/12/2023 text/html Here to discuss lab results Lian Lamb MD Attn: Accounting[address] [facility], [place], [address], [facility] 10/12/2023 11:28:28 03/22/2024 text/html Has a parttime job working four days weekly. Requesting increase in pain medication. Has cramps in multiple muscles as well as numbness and tingling CHANCE Goodman, [facility] 03/23/2024 09:45:24
--- OUTSIDE RECORDS SUMMARY | 2024-05-07 14:47 | XMS_ITS | Encounter Summary ---
Author Organization [facility] Address [address] [place] [address] Phone Care Team Providers Care Forest Economics Professor Name Role Phone Dequan Frye MD Unavailable [phone] Lian Melchor MD Primary Care Provider Encounter Details Date Type Department Care Team (Late st Contact Info) Description 12/09/2023 Telephone [facility] Gastroenterology [address] [facility] 12th [place] [address] [place] [address] Zoya Masterson LPN Social History Tobacco Use Types Packs/Day Years Used Date Smoking Tobacco: Every Day Cigarettes 1.5 42.2 Started: 1984 Passive Smoke Exposure: Current Smokeless [...] on file 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
--- OUTSIDE RECORDS SUMMARY | 2024-05-07 14:47 | XMS_ITS | Encounter Summary ---
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
--- OUTSIDE RECORDS SUMMARY | 2024-05-07 14:47 | XMS_ITS ---
Author Organization [facility] Address [address] [place] [address] Care Team Providers Care Master Printer Name Role Phone Dequan Frye MD Unavailable [phone] Lian Melchor MD Primary Care Provider Active Problems Patient Care Coordination No te Formatting of this note migh t be different from the original. Best number to call is [phone]. Cell phone has been turned off as of 08/17/2019 Problem Noted Date Diagnosed Date Protein-calorie malnutrition, severe 11/25/2022 Abdominal pain 11/24/2022 Intractable nausea and vomiting 11/24/2022 Benign prostatic hyperplasia without lower urinary tract symptoms 11/24/2022 Choledocholithiasis 11/24/2022 Hiatal hernia 08/14/2022 Seizure 07/20/2022 Cirrhosis of liver without ascites 06/11/2022 Overview (06/11/2022): Added automatically from request for surgery [id number] Seizures 12/10/2020 Osteopenia 09/21/2018 Chronic viral hepatitis B 08/31/2018 Overview (08/31/2018): Added automatically from request for surgery [id number] Hepatocellular carcinoma 08/09/2018 Chronic viral hepatitis B wi thout delta agent and without coma 08/09/2018 Nondependent alcohol abuse, in remission 013 Smokes tobacco daily 05/11/2012 Pre-transplant evaluation for liver transplant Emphysema Current Treatment and Therapy Plans No current plan information found. Past Treatment and Therapy Plans No past plan information found. Lifetime Dose Tracking * Chemical Lifetime Dose Automatic Entry Manual Entr y Fluoro Time 20.633 minutes 20.633 minutes 0 minutes Air kerma at the reference point (Ka,r) 327 mGy 3 27 mGy 0 mGy DLP 3,581 mGycm 3,581 mGycm 0 mGycm
--- OUTSIDE RECORDS SUMMARY | 2024-05-07 14:47 | XMS_ITS | Encounter Summary ---
Author Organization [facility] Address [address] [place] [address] Care Team Providers Care Geotechnicial Properties Technician Name Role Phone Jazmin Shankar MD Primary Care Provider [phone] Cedrick Barriga MD Primary Care Provider [phone] Unknown, Notinfile Primary Care Provider Unavail able Cedrick Barriga MD Primary Care Provider [phone] Cedrick Barriga MD Unavailable [phone] Olya Corcoran RN Unavailable [phone] Dequan Frye MD Unavailable [phone] Lian Melchor MD Primary Care Provider Encounter Details Date Type Department Care Team (Late st Contact Info) Description 04/10/2020 Telephone [facility] Radiology [address] [facility] [place] [address] Fabian Almaguer MD [address] [facility] [address] [place] [address] Social History Tobacco Use Types Packs/Day Years Used Date Smoking Tobacco: Every Day Cigarettes 0.3 42.2 Started: 1984 Smokeless Tobacco: Never Comments:trying to quit-smok ing Alcohol Use Standard Drinks/Week Comments Not Currently 0 (1 standard drink = 0.6 oz pur e alcohol) denies Sex and Gender Information Value Date Recorded Sex Assigned at Not on file Legal Sex Male 2:43 AM 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 CHAIN MAKER Gender Identity Not on file Sexual Orientation [...] COVID: Suspected 03/01/2023 03/01/2023 03/01/2023 10:12 PM MACHINE CHAIN MAKER RSV, droplet 03/01/2023 03/01/2023 03/08/2023 3:05 AM MACHINE CHAIN MAKER documented as of this encounter Care Teams Geotechnicial Properties Technician Relationship Specialty Start Date End Date Jazmin Shankar MD PCP - General Family Medicine 08/09/18 12/23/20 Cedrick Barriga MD [address] [place] [address] PCP - General 12/24/20 07/19/22 Unknown, Notinfile PCP - General 07/20/22 07/20/22 Cedrick Barriga MD [address] [place] [address] PCP - General Family Medicine 07/21/22 11/12/22 Lian Melchor MD [address] [place] [address] PCP - General Gastroenterology 11/13/22 Cedrick Barriga MD [address] [place] [address] 07/20/22 08/11/22 Olya Corcroan, RN Airplane Cover Maker 08/10/1812/09 Dequan Frye MD Referring Physician Transplant Hepatology 08/19/18 documented as of this encounter
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
--- OUTSIDE RECORDS SUMMARY | 2024-05-07 14:47 | XMS_ITS | CONTINUITY OF CARE DOCUMENT ---
Author Name jud renner Address Unknown Organization [facility] Address [address] [place] [address] Phone [phone] Care Team Providers Care Bench Worker Helper Name Role Phone Mason GUTIERREZ, Chao Unavailable Chao Cuevas MD Unavailable [phone] INSURANCE PROVIDERS Payer name Policy type / Coverage type [place] red republican [employer] [facility] FAMILY [employer] Medicaid 1 [id number] AARP MEDICARE ADVANTAGE HMO-POS HMO [id number]
[2024-05-07] MEDS: MORPHINE SULFATE INJ (*CRX) 10 MG/ML AMP IM (15:12)
[2024-05-07] MEDS: ONDANSETRON HCL ODT 4 MG TABLET PO ×2 (15:14→16:24)
== END 2024-05-07 17:32 | disposition home or self-care (01) ==
PROVIDERS: Emergency Provider Student in an Organized Health Care Education/Training Program
DX: S02.40DA Maxillary fracture, left side, initial encounter for closed fracture (principal); S02.842A Fracture of lateral orbital wall, left side, initial encounter for closed fracture; S02.32XA Fracture of orbital floor, left side, initial encounter for closed fracture; J44.9 Chronic obstructive pulmonary disease, unspecified; G40.909 Epilepsy, unspecified, not intractable, without status epilepticus; K76.82 Hepatic encephalopathy; K21.9 Gastro-esophageal reflux disease without esophagitis; G89.4 Chronic pain syndrome; F17.210 Nicotine dependence, cigarettes, uncomplicated; Z86.19 Personal history of other infectious and parasitic diseases; Z85.05 Personal history of malignant neoplasm of liver; Z87.11 Personal history of peptic ulcer disease; Z92.3 Personal history of irradiation; Z90.49 Acquired absence of other specified parts of digestive tract; Z79.899 Other long term (current) drug therapy; Y04.2XXA Assault by strike against or bumped into by another person, initial encounter
CPT/HCPCS: 70450; 70486; 96372; 99284; A9270; J2270

== ENCOUNTER 2024-07-14 02:09 | Emergency (ER) | payer MEDICARE, MEDICAID, SELFPAY ==
[2024-07-14] VITALS (103 sets, daily range): BP systolic 76–189; BP diastolic 31–102; PULSE 74–123; RESP 12–26; TEMP 35.8–36.7; O2SAT 88–100
--- NOTE | ~2024-07-14 | XR_ITS ---
Portable chest x-ray Comparison: 07/14/2024 Clinical History: Line placement Findings: Endotracheal tube, NG tube, and left-sided central venous line are in satisfactory positio ns. COPD pattern with biapical scarring noted. Cardiomediastinal silhouette is stable. Bones and sof t tissues are unremarkable. Impression: COPD with biapical scarring. No pneumothorax. Support tubes, as above. Reviewed, dictated and finalized at [facility]. Impression: COPD with biapical scarring. No pneumothorax. Support tubes, as above.
--- NOTE | ~2024-07-14 | XR_ITS ---
Portable chest x-ray Comparison: 04/10/2024 Clinical History: Intubation Findings: Endotracheal tube and NG tube are in satisfactory positions. Procedure. Biapical scarring. No other pulmonary abnormality evident. Cardiomediastinal silhouette is stable. Bones and soft tiss ues are unremarkable. Impression: Probable COPD and biapical scarring. Support tubes, as above. Reviewed, dictated and finalized at location . Impression: Probable COPD and biapical scarring. Support tubes, as above.
--- NOTE | ~2024-07-14 | CT_ITS ---
Non-contrast Head CT History: Seizure COMPARISON: 05/07/2024 Technique: Axial non-contrast imaging of the brain was performed. Dose reduction technique was used on this scan by utilizing automated exposure control and iterative reconstruction technique. The dose -length product (DLP) was 681.00 mGy-cm. Findings: There is no evidence of intracranial hemorrhage, mass lesion, or acute infarct. Brain par enchyma appears normal. The ventricles and subarachnoid spaces are normal in size. The calvarium ap pears normal. The visualized paranasal sinuses and mastoid air cells are clear. Stable focal depress ed fracture deformity of the left zygomatic arch. Impression: No acute abnormality seen. Reviewed, dictated and finalized at location . Impression: No acute abnormality seen.
[2024-07-14] MEDS: levETIRAcetam 1500MG/NACL100ML 1,500 MG/100 ML BAG 400 MG IVPB ×2 (03:00→03:15)
[2024-07-14] MEDS: MAGNESIUM SULF 2 GM/WATER 50ML 2 GM/50 ML BAG IVPB (03:15)
[2024-07-14] MEDS: ROCURONIUM BROMIDE 50 MG/5 ML VIAL 70 MG IV PUSH (03:30)
[2024-07-14] MEDS: ETOMIDATE 20 MG/10 ML AMPUL IV PUSH (03:38)
[2024-07-14] MEDS: LACTATED RINGERS 1,000 ML 999 ML IV CONT (03:45)
--- OUTSIDE RECORDS SUMMARY | 2024-07-14 04:26 | XMS_ITS | Encounter Summary ---
Author Organization [facility] Address [address] [place] [address] Phone Care Team Providers Care Equipment Or Machinery Cleaner Name Role Phone Cedrick Barriga MD Primary Care Provider [phone] Unknown, Notinfile Primary Care Provider Unavail able Cedrick Barriga MD Primary Care Provider [phone] Cedrick Barriga MD Unavailable [phone] Dequan Frye MD Unavailable [phone] Lian Melchor MD Primary Care Provider Encounter Details Date Type Department Care Team (Late st Contact Info) Description 04/01/2022 Documentation [facility] Gastroenterology [address] 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 Not on file Not on file documented as of this encounter Plan of Treatment Upcoming Encounters Date Type Department Care Team (Latest Contact Info) Description 08/04/2024 1:00 PM CDT Hospital Encounter [facility] [address] [place] [phone] Kee Lew MD [address] [place], [place] [phone] Common bile duct stone; Encounter for replacement of biliary stent 08/04/2024 1:00 PM CDT - 08/04/2024 1:30 PM CDT Surgery [facility] [place] [phone] Kee Lew MD [address] [place], [place] [phone] ERCP w/Spyglass [[id number]] Scheduled Procedures Name Priority Associated Diagnoses Date/Ti [...] COVID: Suspected 03/01/2023 03/01/2023 03/01/2023 10:12 PM INTERNET RETAILER RSV, droplet 03/01/2023 03/01/2023 03/08/2023 3:05 AM INTERNET RETAILER documented as of this encounter Care Teams Equipment Or Machinery Cleaner Relationship Specialty Start Date End Date Cedrick Barriga MD [address] [place] [address] PCP - General 12/24/20 07/19/22 Unknown, Notinfile PCP - General 07/20/22 07/20/22 Cedrick Barriga MD [address] [place] [address] PCP - General Family Medicine 07/21/22 11/12/22 Lian Melchor MD [address] [place] [address] PCP - General Gastroenterology 11/13/22 Cedrick Barriga MD [address] [place] [address] 07/20/22 08/11/22 Dequan Frye MD Referring Physician Transplant Hepatology 08/19/18 documented as of this encounter
--- OUTSIDE RECORDS SUMMARY | 2024-07-14 04:26 | XMS_ITS | CONTINUITY OF CARE DOCUMENT ---
Author Name jud renner Address Unknown Organization [facility] Address [address] [facility] [address] [place] [address] Phone [phone] Care Team Providers Care Head Irrigator Name Role Phone Mason GUTIERREZ, Chao Unavailable Chao Cuevas MD Unavailable [phone] INSURANCE PROVIDERS Payer name Policy type / Coverage type [place] red green party ID HEALTHCARE AND FAMILY SERVICES Medicaid 1 [id number] AARP MEDICARE ADVANTAGE HMO-POS HMO [id number]
--- OUTSIDE RECORDS SUMMARY | 2024-07-14 04:26 | XMS_ITS | Encounter Summary ---
Author Organization [facility] Healthcare Address [address] [place] [address] Care Team Providers Care Automobile Wrecker Name Role Phone Jazmin Shankar MD Primary Care Provider [phone] Cedrick Barriga MD Primary Care Provider [phone] Unknown, Notinfile Primary Care Provider Unavail able Cedrick Barriga MD Primary Care Provider [phone] Cedrick Barriga MD Unavailable [phone] Olya Corcoran RN Unavailable [phone] Dequan Frye MD Unavailable [phone] Lian Melchor MD Primary Care Provider Encounter Details Date Type Department Care Team (Late st Contact Info) Description 06/24/2020 Telephone [facility] [address] [place] [address] Rj Johnson, RT Social History [...] on file Legal Sex Male 2:43 AM CLERK ANALYST Gender Identity Not on file Sexual Orientation Not on file documented as of this encounter Plan of Treatment Upcoming Encounters Date Type Department Care Team (Latest Contact Info) Description 08/04/2024 1:00 PM CDT Hospital Encounter [facility] [address] [place] [phone] eKe Lew MD [address] [place], [place] [id number] Common bile duct stone; Encounter for replacement of biliary stent 08/04/2024 1:00 PM CDT - 08/04/2024 1:30 PM CDT Surgery [facility] [address] [place] [phone] Kee Lew MD [address] [place], [place] [phone] ERCP w/Spyglass [[id number]] Scheduled Procedures Name Priority [...] COVID: Suspected 03/01/2023 03/01/2023 03/01/2023 10:12 PM CLERK ANALYST RSV, droplet 03/01/2023 03/01/2023 03/08/2023 3:05 AM CLERK ANALYST documented as of this encounter Care Teams Automobile Wrecker Relationship Specialty Start Date End Date Jazmin Shankar MD PCP - General Family Medicine 08/09/18 12/23/20 Cedrick Barriga MD [address] [place] [address] PCP - General 12/24/20 07/19/22 Unknown, Notinfile PCP - General 07/20/22 07/20/22 Cedrick Barriga MD [address] [place] [address] PCP - General Family Medicine 07/21/22 11/12/22 iLan Melchor MD [address] [place] [address] PCP - General Gastroenterology 11/13/22 Cedrick Barriga MD [address] [place] [address] 07/20/22 08/11/22 Olya Corcoran, RN Superintendent 08/10/1812/09 Dequan Frye MD Referring Physician Transplant Hepatology 08/19/18 documented as of this encounter
--- OUTSIDE RECORDS SUMMARY | 2024-07-14 04:26 | XMS_ITS | Encounter Summary ---
Author Organization [facility] Address [address] [place] [address] Care Team Providers Care Field Court Researcher Name Role Phone Jazmin Shankar MD Primary Care Provider [phone] Cedrick Barriga MD Primary Care Provider [phone] Unknown, Notinfile Primary Care Provider Unavail able Cedrick Barriga MD Primary Care Provider [phone] Cedrick Barriga MD Unavailable [phone] Olya Corcoran RN Unavailable [phone] Dequan Frye MD Unavailable [phone] Lian Melchor MD Primary Care Provider Encounter Details Date Type Department Care Team (Late st Contact Info) Description 04/10/2020 Telephone [facility] [address] [facility] [place] [address] Fabian Almaguer MD [address] [facility] [address] [place] [address] Social History Tobacco Use Types Packs/Day Years Used Date Smoking Tobacco: Every Day Cigarettes 0.3 42.4 Started: 1984 Smokeless Tobacco: Never Comments:trying to quit-smok ing Alcohol Use Standard Drinks/Week Comments Not Currently 0 (1 standard drink = 0.6 oz pur e alcohol) denies Sex and Gender Information Value Date Recorded Sex Assigned at Not on file 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 Gender Identity Not on file Sexual Orientation Not on file documented as of this encounter Plan of Treatment Upcoming Encounters Date Type Department Care Team (Latest Contact Info) Description 08/04/2024 1:00 PM CDT Hospital Encounter [facility] [place] [phone] Kee Lew MD [address] [facility] [place] [address] Common bile duct stone; Encounter for replacement of biliary stent 08/04/2024 1:00 PM CDT - 08/04/2024 1:30 PM CDT Surgery [facility] [address] [place] [phone] Kee Lew MD [address] [facility] [place] [address] ERCP w/Spyglass [[id number]] Scheduled Procedures Name Priority [...] COVID: Suspected 03/01/2023 03/01/2023 03/01/2023 10:12 PM ATOMIZER ASSEMBLER RSV, droplet 03/01/2023 03/01/2023 03/08/2023 3:05 AM ATOMIZER ASSEMBLER documented as of this encounter Care Teams Field Court Researcher Relationship Specialty Start Date End Date Jazmin Shankar MD PCP - General Family Medicine 08/09/18 12/23/20 Cedrick Barriga MD [address] [place] [address] PCP - General 12/24/20 07/19/22 Unknown, Notinfile PCP - General 07/20/22 07/20/22 Cedrick Barriga MD [address] [place] [address] PCP - General Family Medicine 07/21/22 11/12/22 Lian Melchor MD [address] [place] [address] PCP - General Gastroenterology 11/13/22 Cedrick Barriga MD [address] [place] [address] 07/20/22 08/11/22 Olya Corcoran RN Hydro Sprayer Operator 08/10/1812/09 Dequan Frye MD Referring Physician Transplant Hepatology 08/19/18 documented as of this encounter
--- OUTSIDE RECORDS SUMMARY | 2024-07-14 04:26 | XMS_ITS | Clinical Summary ---
Author Organization [facility] Address [address] [place] [address] Care Team Providers Care Law Researcher Name Role Phone Unavailable Primary Care Provider [...] Comments Blood Pressure 124/76 04/26/2013 10:30 AM SPECIALIZED DEVELOPER Pulse 80 02/13/2013 1:51 PM SPECIALIZED DEVELOPER Temperature - - Respiratory Rate - - Oxygen Saturation - - Inhaled Oxygen Concentration - - Weight 56.7 kg (125 lb) 03/27/2013 1:50 PM SPECIALIZED DEVELOPER Height 175.3 cm (5' 9) 03/27/2013 1:50 PM SPECIALIZED DEVELOPER Body Mass Index 18.46 03/27/2013 1:50 PM SPECIALIZED DEVELOPER Plan of Treatment Health Maintenance Due Date Last Done Comments Colorectal Cancer Screening Colonoscopy (10 Years) 1963 Annual Physical 09/13/1966 Hepatitis C 09/13/1981 DTaP, Tdap and Td Vaccines ( 1 - Tdap) 09/13/1982 Pneumococcal Vaccine: 50+ Ye ars (1 of 1 - PCV) 09/13/2013 Zoster Vaccines (1 of 2) 09/13/2013 COVID-19 Vaccine ( - 2023-2 5 season) 2023 RSV Immunization or 60+ Years (1 - [...]
--- OUTSIDE RECORDS SUMMARY | 2024-07-14 04:27 | XMS_ITS | Encounter Summary ---
Author Organization [facility] Address [address] [place] [address] Phone Care Team Providers Care Pillow Agent Name Role Phone Dequan Frye MD Unavailable Lian Melchor MD Primary Care Provider Encounter Details Date Type Department Care Team (Late st Contact Info) Description 11/27/2022 Telephone [facility] [address] [facility] 12th [place] [address] [place] [address] Zoya Masterson LPN Social History Tobacco Use Types Packs/Day Years Used Date Smoking Tobacco: Every Day Cigarettes 1.5 42.4 Started: 1982 Passive Smoke Exposure: Current Smokeless [...] on file 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 Gender Identity Not on file Sexual Orientation Not on file 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 Not on file Not on file Not on file documented as of this encounter Plan of Treatment Upcoming Encounters Date Type Department Care Team (Latest Contact Info) Description 08/04/2024 1:00 PM CDT Hospital Encounter [facility] GI [facility] [address] [place] [phone] Kee Lew MD [address] [facility] [place] [address] Common bile duct stone; Encounter for replacement of biliary stent 08/04/2024 1:00 PM CDT - 08/04/2024 1:30 PM CDT Surgery [facility] [address] [place] [phone] Kee Lew MD [address] [facility] [place] [address] ERCP w/Spyglass [[id number]] Scheduled Procedures Name Priority [...] COVID: Suspected 03/01/2023 03/01/2023 03/01/2023 10:12 PM GRADING MACHINE FEEDER RSV, droplet 03/01/2023 03/01/2023 03/08/2023 3:05 AM GRADING MACHINE FEEDER documented as of this encounter Care Teams Pillow Agent Relationship Specialty Start Date End Date Lian Melchor MD [address] [place] [address] PCP - General Gastroenterology 11/13/22 Dequan Frye MD Referring Physician Transplant Hepatology 08/19/18 documented as of this encounter
--- OUTSIDE RECORDS SUMMARY | 2024-07-14 04:27 | XMS_ITS | Referral Summary ---
Author Organization [facility] Address [address] [place] [address] Care Team Providers Care Him Coder Name Role Phone Dequan Frye MD Unavailable [phone] Lian Melchor MD Primary Care Provider Encounters Date Type Department Care Team Description 06/23/2024 Results Follow-Up [facility] [address] [facility] 12th [place] [address] [place] [address] Staci Spangler MD 06/14/2024 Orders Only [facility] [address] [place] [address] Medical Office Building [address], [address] [place] [address] Kee Lew MD Common bile duct stone (Primary Dx); Encounter for replacement of biliary stent 06/13/2024 Orders Only [facility] [address] [place] [address] Medical Office Building [address], [address] [place] [address] Kee Lew MD Common bile duct stone (Primary Dx); Encounter for replacement of biliary stent 06/13/2024 Results Follow-Up [facility] [address] [place] [address] Medical Office Building [address], [address] [place] [address] Dorie Caba RN 06/08/2024 1:52 PM CDT Anesthesia Event [facility] [address] [place] [phone] Jose M Magallon DO 06/08/2024 6:54 AM CDT - 06/08/2024 11:59 PM CDT Hospital Encounter [facility] [address] [place] [phone] Upper abdominal pain Discharge Disposition: Discharge to home or self care 06/08/2024 2:30 PM CDT - 06/08/2024 3:00 PM CDT Surgery [facility] [address] [place] [phone] Kee Lew MD ENDO ENDOSCOPIC RETROGRADE CHOLANGIOPANCREATOGRAPHY WITH STENT PLACEMENT [GI509] 06/08/2024 1:29 PM CDT - 06/08/2024 3:39 PM CDT Hospital Encounter [facility] [address] [place] [phone] Kee Lew MD RUQ pain Discharge Disposition: Discharge to home or self care 05/24/2024 Telephone [facility] [address] [facility] Medical Office Building 4, [address] [place] [phone] Adriana Enrique RN 05/24/2024 Telephone [facility] [address] [facility] Medical Office Building 4, [address] [place] [phone] Adriana Enrique RN 05/24/2024 Documentation [facility] [address] [facility] 12th [place] [address] [place] [phone] Angela Lincoln RN 05/23/2024 Telephone [facility] [address] [facility] Medical Office Building [address], [address] [place] [address] Adriana Enrique RN 05/18/2024 Results Follow-Up [facility] [address] [facility] 12th [place] [address] [place] [address] Staci Spangler MD 05/13/2024 Orders Only [facility], located within [facility] [address] [place] [address] Petra Rust RN 05/13/2024 1:02 PM CDT - 05/13/2024 11:59 PM CDT Hospital Encounter [facility] [address] [place] [address] Chronic viral hepatitis B without delta agent and without coma (HCC); Cirrhosis of liver without ascites, unspecified hepatic cirrhosis type (HCC) Discharge Disposition: Discharge to home or self care from Last 3 Months Allergies Active Allergy Reactions Criticality Noted Date Comments Ciprofloxacin Stomach upset Low Eletriptan Hbr Unknown 08/21/2013 Eletriptan Hbr Unknown 07/20/2022 Fentanyl Delusions,Hallucinat ions ,Agitation,Nausea only High 11/02/2018 Extreme agitation/paradoxical reaction requiring precedex and ICU transfer Fentanyl Delusions,Agitation Medium 07/20/2022 [place] Swollen tongue High 09/20/2018 Throat closes Medications [...] mouth daily 30 tablet 11 4 Active omeprazole (PriLOSEC) 40 mg capsule Take 1 capsule (40 mg total) by mouth daily Active Active Problems Patient Care Coordination No te Formatting of this note migh t be different from the original. Best number to call is [phone]. Cell phone has been turned off as of 08/17/2019 Problem Noted Date Diagnosed Date Common bile duct stone 06/13/2024 Encounter for replacement of biliary stent 06/13 RUQ pain 05/24/2024 Protein-calorie malnutrition, severe 11/25/2022 Abdominal pain 11/24/2022 Intractable nausea and vomiting 11/24/2022 Benign prostatic hyperplasia without lower urinary tract symptoms 11/24/2022 Choledocholithiasis 11/24/2022 Hiatal hernia 08/14/2022 Seizure 07/20/2022 Cirrhosis of liver without ascites 06/11/2022 Overview (06/11/2022): Added automatically from request for surgery [id number] Seizures 12/10/2020 Osteopenia 09/21/2018 Chronic viral hepatitis B 08/31/2018 Overview (08/31/2018): Added automatically from request for surgery [id number] Hepatocellular carcinoma 08/09/2018 Chronic viral hepatitis B [...] you have a drink containing alcohol? Never 05/31/2024 Q2: How many drinks containi ng alcohol do you have on a typical day when you are drinking? Patient does not drink Q3: How often do you have si x or more drinks on one occasion? Never 05/31/2024 Personal Safety Answer Date Recorded Have you ever been in or are you currently in a harmful physical or emotional relationship or is someone making you feel afraid or unsafe? 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 Not on file Not on file Last Filed Vital Signs Vital Sign Reading Time Taken Comments Blood Pressure 140/89 06/08/2024 3:20 PM CDT Pulse 50 06/08/2024 3:20 PM CDT Temperature 36.5 C (97.7 F) 06/08/2024 1:45 PM CDT Respiratory Rate 12 06/08/2024 3:20 PM CDT Oxygen Saturation 100% 06/08/2024 3:20 PM CDT Inhaled Oxygen Concentration - - Weight 55.8 kg (123 lb) 06/08/2024 1:45 PM CDT Height 175.3 cm (5' 9) 06/08/2024 1:45 PM CDT Body Mass Index 18.16 06/08/2024 1:45 PM CDT Plan of Treatment Upcoming Encounters Date Type Department Care Team (Latest Contact Info) Description 08/04/2024 1:00 PM CDT Hospital Encounter [facility] [address] [place] [phone] Kee Lew MD [address] [place], [place] [phone] Common bile duct stone; Encounter for replacement of biliary stent 08/04/2024 1:00 PM CDT - 08/04/2024 1:30 PM CDT Surgery [facility] [address] [place] [phone] Kee Lew MD [address] [place] [address] ERCP w/Spyglass [GI527] Scheduled Procedures Name Priority [...] telling anyone). Medical Devices Implanted Type Area Primer Inserting Machine Adjuster Device Identifier Shelf Expiration Date Model / Serial / Lot [employer] Becca 10fr 5cm Biliary Double Pigtail Stent [id number] - [id number] Implanted:Qty: 1 on 06/08/2024 by Kee Lew MD at [facility] Stent N/A: Bile Duct Maker Media Becca 05/01/2026 [id number] / / [id number] Lower Leg Ortho Hardware-01/16/20 18 Implanted: 018 (Quantity not on file) Left: Leg [employer] S220gh Embosphere Prefill Saline Syringe Compressible Nonaggregate - [id number] Implanted:Qty: 1 on 11/02/2018 at [facility] [employer]ook[employer] 05/29/2021 [id number] / / [id number] Procedures Procedure Name Priority Date/Time Associated Diagnosis Comments [id number], TUMOR MARKER Routine 06/15/2024 12:46 PM CDT Cirrhosis of liver without ascites, unspecified hepatic cirrhosis type (HCC) Chronic viral hepatitis B without delta agent and without coma (HCC) GAMMA GT Routine 06/15/2024 12:46 PM CDT Cirrhosis of liver without ascites, unspecified hepatic cirrhosis type (HCC) Chronic viral hepatitis B without delta agent and without coma (HCC) PROTIME-INR Routine 06/15/2024 12:46 PM CDT Cirrhosis of liver without ascites, unspecified hepatic cirrhosis type (HCC) Chronic viral hepatitis B without delta agent and without coma (HCC) COMPREHENSIVE METABOLIC PANEL Routine 06/15/2024 12:46 PM CDT Elevated LFTs Cirrhosis of liver without ascites, unspecified hepatic cirrhosis type (HCC) Chronic viral hepatitis B without delta agent and without coma (HCC) CBC WITH AUTO DIFFERENTIAL Routine 06/15/2024 12:46 PM CDT Cirrhosis of liver without ascites, unspecified hepatic cirrhosis type (HCC) Chronic viral hepatitis B without delta agent and without coma (HCC) BILIRUBIN, DIRECT Routine 06/15/2024 12: 46 PM CDT Cirrhosis of liver without ascites, unspecified hepatic cirrhosis type (HCC) Chronic viral hepatitis B without delta agent and without coma (HCC) ERCP IP Routine 06/08/2024 2:18 PM CDT RUQ pain ERCP IP Routine 06/08/2024 2:18 PM CDT RUQ pain ERCP IP Routine 06/08/2024 2:18 PM CDT RUQ pain CYTOLOGY Routine 06/08/2024 2:12 PM CDT RUQ pain ERCP Schedule Routine, Read Routine (OP Routine) 06/08/2024 2:10 PM CDT Upper abdominal pain ERCP 06/08/2024 1:42 PM CDT MRI ABDOMEN LIVER W WO CONTRAST Schedule Routine, Read Routine (OP Routine) 05/13/2024 1:41 PM CDT Chronic viral hepatitis B without delta agent and without coma (HCC) Cirrhosis of liver without ascites, unspecified hepatic cirrhosis type (HCC) HEPATITIS C ANTIBODY Routine 09/20/2018 7:23 AM CDT Pre-transplant evaluation for liver transplant Chronic hepatitis B (HCC) Hepatocellular carcinoma (HCC) PSA SCREEN Routine 09/20/2018 7:23 AM CDT Pre-transplant evaluation for liver transplant Chronic hepatitis B (HCC) Hepatocellular carcinoma (HCC) COLONOSCOPY REPORT 05/02/2015 from Last 3 Months or Most Recently Relevant to Health Maintenance Results * (ABNORMAL) CBC with auto differential (06/15/2024 12:46 PM CDT) WBC 5.3 3.4 - 10.8 x10E3/uL [facility] - 01 RBC 4.21 4.14 - 5.80 x10E6/uL [facility] - 01 Hgb 12.8(L) 13.0 - 17.7 g/dL [facility] - 01 Hct 38.2 37.5 - 51.0 % [facility] - 01 MCV 91 79 - 97 fL [facility] - 01 MCH 30.4 26.6 - 33.0 pg [facility] - 01 MCHC 33.5 31.5 - 35.7 g/dL [facility] - 01 Rdw 15.6(H) 11.6 - 15.4 % [facility] - 01 Platelets 97(LL) 150 - 450 x10E3/uL [facility] - 01 Comment:Platelet count verif ied by examination of peripheral blood smear. Neutrophils pct 71 Not Estab. % [facility] - 01 Lymphs pct 17 Not Estab. % [facility] - 01 Monocytes pct 10 Not Estab. % [facility] - 01 Eosinophils pct 2 Not Estab. % [facility] - 01 Basophil pct 0 Not Estab. % [facility] - 01 Neutrophil abs 3.7 1.4 - 7.0 x10E3/uL [facility] - 01 Lymphs (Absolute) 0.9 0.7 - 3.1 x10E3/uL [facility] - 01 Monocyte abs 0.5 0.1 - 0.9 x10E3/uL [facility] - 01 Eosinophils, abs 0.1 0.0 - 0.4 x10E3/uL [facility] - 01 Basophils, abs 0.0 0.0 - 0.2 x10E3/uL [facility] - 01 Immature Granulocytes 0 Not Estab. % [facility] - 01 Immature Grans (Abs) 0.0 0.0 - 0.1 x10E3/uL [facility] - 01 Hematology Comments: Note: [facility] - 01 Comment:Verified by microsco pic examination. Blood 06/15/2024 12:4 6 PM CDT 06/15/2024 Narrative [facility] - 06/16/2024 11:10 AM CDT Performed at: [address] [id number] Curriculum Development Specialist: Juan Carlos Mcgee PhD, Phone: [phone] us Staci Spangler MD LAB BLOOD ORDERABLES Final Result [facility]CO [facility] - * (ABNORMAL) [id number], Tumor Marker (06/15/2024 12:46 PM CDT) [facility] alpha Fetoprotein, tumor marker 36.3(H) 0.0 - 8.4 ng/mL [facility] - 01 Comment: [facility] Electrochemiluminescence Immunoassay (ECLIA) Values obtained with different assay methods or kits cannot be used interchangeably. Results cannot be interpreted as absolute evidence of the presence or absence of malignant disease. This test is not interpretable in females. Blood 06/15/2024 12:4 6 PM CDT 06/15/2024 Narrative [facility] - 06/17/2024 5:07 AM CDT Performed at: [address] [place] [id number] Curriculum Development Specialist: Juan Carlos Mcgee PhD, Phone: [phone] Staci Spangler MD LAB BLOOD ORDERABLES Final Result Performing Organization Address City/[facility] Co de Phone Number [facility] - * (ABNORMAL) Protime-INR (06/15/2024 12:46 PM CDT) INR 1.1 0.9 - 1.2 [facility] - Comment: Reference interval is for non-anticoagulated patients. Suggested INR therapeutic range for Vitamin K antagonist therapy: Standard Dose (moderate intensity therapeutic range): 2.0 - 3.0 Higher intensity therapeutic range 2.5 - 3.5 PT 12.2(H) 9.1 - 12.0 sec [facility] - Blood 06/15/2024 12:4 6 PM CDT 06/15/2024 Narrative [facility] - 06/16/2024 8:12 AM CDT Performed at: [address] [place] [id number] Curriculum Development Specialist: Juan Carlos Mcgee PhD, Phone: [phone] Staci Spangler MD LAB BLOOD ORDERABLES Final Result Performing Organization Address City/[facility] Co de Phone Number [facility] - * Gamma GT (06/15/2024 12:46 PM CDT) GGT 62 0 - 65 IU/L [facility] - 01 Blood 06/15/2024 12:4 6 PM CDT 06/15/2024 Narrative [facility] - 06/16/2024 8:12 AM CDT Performed at: [address] [place] [id number] Curriculum Development Specialist: Juan Carlos Mcgee PhD, Phone: [phone] Staci Spangler MD LAB BLOOD ORDERABLES Final Result Performing Organization Address [facility] de Phone Number [facility] * Bilirubin, direct (06/15/2024 12:46 PM CDT) Bilirubin, direct 0.19 0.00 - 0.40 mg/dL [facility] - 01 Blood 06/15/2024 12:4 6 PM CDT 06/15/2024 Narrative [facility] - 06/16/2024 8:12 AM CDT Performed at: [address] [place] [id number] Curriculum Development Specialist: Juan Carlos Mcgee PhD, Phone: [phone] Staci Spangler MD LAB BLOOD ORDERABLES Final Result Performing Organization Address [facility] Phone Number [facility] * (ABNORMAL) Comprehensive metabolic panel (06/15/2024 12:46 PM CDT) Glucose 60(L) 70 - 99 mg/dL [facility] - 01 BUN 13 8 - 27 mg/dL [facility] - 01 Creatinine, Serum 0.86 0.76 - 1.27 mg/dL [facility] - 01 eGFR 99 >59 mL/min/1.73 [facility] - 01 BUN/creat ratio 15 10 - 24 [facility] - 01 Sodium 142 134 - 144 mmol/L [facility] - 01 Potassium, sr 4.7 3.5 - 5.2 mmol/L [facility] - 01 Chloride 105 96 - 106 mmol/L [facility] - 01 CO2 23 20 - 29 mmol/L [facility] - 01 Calcium 9.5 8.6 - 10.2 mg/dL [facility] - 01 Protein, sr 7.0 6.0 - 8.5 g/dL [facility] - 01 Albumin 4.3 3.8 - 4.9 g/dL [facility] - 01 Globulin, Total 2.7 1.5 - 4.5 g/dL [facility] - 01 Bilirubin, Total 0.4 0.0 - 1.2 mg/dL [facility] - 01 Alk phos 112 44 - 121 IU/L [facility] - 01 AST 34 0 - 40 IU/L [facility] - 01 ALT 20 0 - 44 IU/L [facility] - 01 Blood 06/15/2024 12:4 6 PM CDT 06/15/2024 Narrative [facility] - 06/16/2024 8:12 AM CDT Performed at: [address] [place] [id number] Curriculum Development Specialist: Juan Carlos Mcgee PhD, Phone: [phone] Staci Spangler MD LAB BLOOD ORDERABLES Final Result Performing Organization Address City/State/[facility] Co de Phone Number [facility] - 01 * Cytology (06/08/2024 2:12 PM CDT) Fluid (Common Bile Duct (Cytology)) 06/08/2024 2:12 PM CDT Narrative PATHOLOGY [facility] - 06/13/2024 9:50 AM CDT [address] [address] Tele: Maria Luisa Huerta MD - Program Support Assistant Note to Patients: This report may contain a detailed description of human tissue sent by a health care provider to the laboratory for pathologic evaluation. The content of this report is essential for diagnosis and may provide important critical findings. This information may be unfamiliar to patients to review without a medical professional present. It is advised that the patient review this report in the presence of a health care provider who can answer questions and explain the details. CYTOLOGY REPORT Patient Name: CAIN FORDBasilia Address: [address] [place] [address] , [place] [address] Gender: M : 1965 (Age: 58) Service: Gastro Location: [facility] Hospital #: [id number] Patient Type [facility] SAME DAY SURGERY Taken: 06/08/2024 Reported: 06/13/2024 Physician(s): Jann Knight MD Jaquelyn Fleckenstein, M.D. FINAL DIAGNOSIS: Common hepatic duct stricture, brush tip, cytospin and cell block: - No malignancy evident as/06/12/2024 13:23 Report Reviewed and Electronically Signed By Luigi Perez M.D. SPECIMEN TYPE: A: COMMON HEPATIC DUCT STRICTURE BRUSH TIP CLINICAL DIAGNOSIS AND HISTORY: RUQ pain. GROSS DESCRIPTION: Received in a container of CytoRich Red labeled Cain Ford/Common hepatic duct stricture brush tip is one wire brush. The fluid is submitted for two Pap- stained cytospins and cell block. MICROSCOPIC DESCRIPTION: Cytospin slides and cell block sections are sparsely cellular. There are rare minute clusters of bland appearing ductal epithelium in a background of bile. Scant degenerated material present. There is a minute poorly preserved epithelial cluster without overt malignant features. No significant inflammatory component is noted. Additional levels examined. Features diagnostic of malignancy are not evident. Clerical Data Follows [id number], [id number]` REPORT IMAGES AND/OR SCANNED DOCUMENTS ONLY VIEWABLE IN PDF FORMAT The immunohistochemical test(s) cited in this report, if any, was developed and its performance characteristics determined by [facility]ology Department. It has not been cleared or approved by the U.S. Food and Drug Administration. The FDA has determined that such clearance or approval is not necessary. This test is used for clinical purposes. It should not be regarded as investigational or for research. [facility] is certified under the Clinical Laboratory Improvement Amendments of 1988 (CLIA) as qualified to perform high complexity testing. Immunostains were performed on formalin-fixed paraffin embedded tissue using a polymer diaminobenzidine chromogen detection system. Antibodies used may include clone 1D5 (mouse monoclonal, estrogen receptor), clone [id number] (mouse monoclonal progesterone receptor), MIB-1 (mouse monoclonal, Ki- 67), and CD117 (rabbit polyclonal, c-kit). In the event that immunohistochemistry or special stains have been performed, attending physician has confirmed appropriateness of controls. Frozen section, operating room consultation, gross examination and dissection, and case sign out may have been performed in part or completely in the following laboratories: [facility], [address] [facility], [place] [address] [facility], [address], [place] [address]. Kee Lew MD LAB CYTOLOGY ORDER GAYLE Final Result Performing Organization Address City/[facility]/ZIP Co de Phone Number PATHOLOGY [facility] Laboratory Receiving [address] [place] [id number] * [place] ERCP (06/08/2024 2:10 PM CDT) Narrative RAD_[facility] - 06/08/2024 2:20 PM CDT The images from this study are not interpreted by Radiology. Please refer to the physician's procedure / OR operative note. Kee Lew MD IMG FLUOROSCOPY LA OCEDURES Final Result Performing Organization Address [facility] Co de Phone Number [facility] * ERCP (06/08/2024 1:42 PM CDT) Anatomical Region Laterality Modality Other Narrative Procedure Note Kee Lew MD - 06/08/2024 1:42 PM CDT ENDOSCOPY LAB Patient Name: Cain Ford Procedure Date: 06/08/2024 1:42 PM Admit Type: Outpatient Room: [facility] Date of : 1965 Instrument Name: [id number] Gender: Male Note Status: Finalized Procedure: ERCP Indications: Bile duct stone(s), history of HCC status postliver directed therapy Providers: Kee Lew M.D. Referring MD: Staci Spangler M.D., Lian Melchor M.D. Medicines: Indomethacin 100 mg LA, Rocephin 2 g IV, Monitored Anesthesia Care Complications: No immediate complications. Estimated Blood Loss: Estimated blood loss: none. Procedure: Pre-Anesthesia Assessment: - Immediately prior to administration ofmedications, the patient was re-assessed for adequacy to receive sedatives. The benefits, risks, and alternatives to theprocedure and sedation were discussed and informed consentwas obtained. The Endoscope was introduced through the mouth, and used to inject contrast into and used to inject contrast into the bile duct The ERCP was accomplished without difficulty. The patienttolerated the procedure well. Findings: A plant hr manager film of the abdomen was obtained. Surgical clips, consistent with a previous cholecystectomy, were seen in the area of the right upper quadrant of the abdomen. The esophagus was successfullyintubated under direct vision. The scope was advanced to a normal major papillain the descending duodenum. Grade 1 varices were seen in the esophagus.The stomach was normal, no varices. The major papilla was normal. A 0.035 inch x 260 cm straight Dreamwire was passed into the biliary tree.The short-nosed traction sphincterotome was passed over the guidewire and the bile duct was then deeply cannulated. Contrast was injected. I personally interpreted the bile duct images. Ductal flow of contrastwas adequate. Image quality was adequate. Contrast extended to the mainbile duct. Contrast extended to the bifurcation. Contrast extended to the hepatic ducts. The lower third of the main bile duct contained one stone, which was 8 mm in diameter. The common hepatic duct containeda single moderate stenosis 10 mm in length. An 8 mm biliarysphincterotomy was made with a traction (standard) sphincterotome using ERBE electrocautery. There was no post-sphincterotomy bleeding. Thebiliary tree was swept with a 12 mm balloon starting at the bifurcation.Sludge was swept from the duct. All stones were removed. Cells for cytology were obtained by brushing in the upper third of the main bile duct.One 10 Fr by 5 cm stent with a full external pigtail and a full internal pigtail was placed into the common bile duct. Bile flowed through the stent. The stent was in good position. Impression: - The major papilla appeared normal. - A single moderate biliary stricture was found inthe common hepatic duct. The stricture wasindeterminate. Brushed for cytology. Stented. - Choledocholithiasis was found. Complete removalwas accomplished by biliary sphincterotomy and balloon extraction. - Grade 1 esophageal varices. - No gastric varices. Recommendation: - Repeat ERCP in 6 weeks to exchange stent, plan SpyGlass to evaluate stricture further. - During your procedure a stent was placed. Thestent allows to keep the area open and allow for fluid drainage. The stent that was place is meant to beused temporarily and requires close follow up to replaceor remove. Failure to follow up in a timely manner may result in severe abdominal pain, jaundice,infection, pancreatitis or other serious complications - Augmentin (amoxicillin/clavulanate) 875 mg PO BID for 5 days. - Avoid aspirin and nonsteroidal anti-inflammatory medicines for 10 days. - Observe patient's clinical course followingtoday's ERCP with therapeutic intervention. - Watch for pancreatitis, bleeding, perforation,and cholangitis. - Clear liquid diet today, then advance astolerated. - Return to primary care physician as previously scheduled. - - In the unusual situation that you develop abdominal pain, bleeding or other significantproblems in the days following this procedure please call my office at [phone] ([phone]) to speak pam nurses. After hours and evenings please call [phone] and speak to the GI fellow soil conservationist. Please tell them that Dr. Lew did yourprocedure and that your were instructed to have the fellowcall me or the physician covering for me to discuss the management of your condition. If you have an urgent problem, please go to the nearest emergency roomand have the ER doctor call my office during the day or [facility] transfer ([phone]) center after hours and weekends to arrange admission or transfer to our facility. - Call my nurses in the GI office at [phone] ([phone]) for your final pathology results in7 days. Attending Participation: I personally performed the entire procedure. Electronically signed by Kee Lew MD Kee Lew M.D. 06/08/2024 2:21:40 PM This document was signed electronically. Number of Addenda: 0 Note Initiated On: 06/08/2024 1:42 PM Scope In: Scope Out: us Kee Lew MD ENDOSCOPY PROCEDUR ES Final Result * MRI Abdomen Liver W WO Contrast (05/13/2024 1:41 PM CDT) Anatomical Region Laterality Modality Body N/A Magnetic Resonan ce 05/15/2024 10:0 3 AM CDT Impressions 05/16/2024 9:59 AM CDT 1. Morphologic features of cirrhosis with posttreatment changes in segment 4 and 6/7 without evidence of residual or recurrent disease (LR TR nonviable). No new liver lesions. 2. Unchanged moderate intrahepatic biliary ductal dilation within the left hemiliver likely due to stricture at ablation site. 3. Unchanged distal common bile duct stone versus debris. Dictated by: Brissa Tucker M.D. The radiology attending physician has personally reviewed this study, and had reviewed and/or edited this written report and agrees with it. Electronically signed by: Lavon Suero M.D. Narrative 05/16/2024 9:59 AM CDT EXAMINATION: MAGNETIC RESONANCE IMAGING OF THE ABDOMEN WITH AND WITHOUT CONTRAST HISTORY: Hepatitis B with cirrhosis; evaluate for hepatocellular carcinoma. Status post chemoembolization of hepatic segment 6/7 lesion 2012 and chemoembolization ablation of hepatic segment 4 lesion in 2019 TECHNIQUE: Magnetic resonance imaging of the abdomen was performed prior to and following the uneventful administration of intravenous Gadolinium contrast. Protocol: Liver Contrast: gadoterate 10 mL COMPARISON: 01/06/2024 FINDINGS: Liver: No significant iron or fat deposition. Liver surface nodularity with cirrhotic morphology of the liver. - Bile ducts: Unchanged mild to moderate dilation of the common bile duct with debris versus stones in the distal common bile duct. Unchanged moderate left hemiliver biliary ductal dilation with stricture in the left intrahepatic duct possibly related to prior ablation of hepatic segment 4 lesion - Focal liver lesions: Postprocedural findings within hepatic segment 4 with T1 intrinsic hyperintensity consistent ablation changes and postprocedural changes of embolization in hepatic segment 6/7. No new hepatic lesions. - Vasculature: Hepatic and portal veins are patent. Numerous paraesophageal varices and collateral vasculature Gallbladder: Surgically absent Pancreas: Normal Spleen: Splenomegaly measuring up to 15 cm in the craniocaudal dimension. Patrice-Gamna bodies are noted in the spleen. Adrenals: Normal Kidneys: Tiny cyst in the right kidney without hydronephrosis Other Findings: Imaged bowel is normal in caliber without evidence of obstruction. No suspicious osseous lesions. Imaged lung bases demonstrate right basilar atelectasis. A slightly enlarging T2 hyperintense lesion under the right hemidiaphragm with delayed enhancement likely lymphatic in nature. Procedure Note Lavon Suero MD - 05/16/2024 EXAMINATION: MAGNETIC RESONANCE IMAGING OF THE ABDOMEN WITH AND WITHOUT CONTRAST HISTORY: Hepatitis B with cirrhosis; evaluate for hepatocellular carcinoma. Status post chemoembolization of hepatic segment 6/7 lesion 2012 and chemoembolization ablation of hepatic segment 4 lesion in 2019 TECHNIQUE: Magnetic resonance imaging of the abdomen was performed prior to and following the uneventful administration of intravenous Gadolinium contrast. Protocol: Liver Contrast: gadoterate 10 mL COMPARISON: 01/06/2024 FINDINGS: Liver: No significant iron or fat deposition. Liver surface nodularity with cirrhotic morphology of the liver. - Bile ducts: Unchanged mild to moderate dilation of the common bile duct with debris versus stones in the distal common bile duct. Unchanged moderate left hemiliver biliary ductal dilation with stricture in the left intrahepatic duct possibly related to prior ablation of hepatic segment 4 lesion - Focal liver lesions: Postprocedural findings within hepatic segment 4 with T1 intrinsic hyperintensity consistent ablation changes and postprocedural changes of embolization in hepatic segment 6/7. No new hepatic lesions. - Vasculature: Hepatic and portal veins are patent. Numerous paraesophageal varices and collateral vasculature Gallbladder: Surgically absent Pancreas: Normal Spleen: Splenomegaly measuring up to 15 cm in the craniocaudal dimension. Patrice-Gamna bodies are noted in the spleen. Adrenals: Normal Kidneys: Tiny cyst in the right kidney without hydronephrosis Other Findings: Imaged bowel is normal in caliber without evidence of obstruction. No suspicious osseous lesions. Imaged lung bases demonstrate right basilar atelectasis. A slightly enlarging T2 hyperintense lesion under the right hemidiaphragm with delayed enhancement likely lymphatic in nature. IMPRESSION: 1. Morphologic features of cirrhosis with posttreatment changes in segment 4 and 6/7 without evidence of residual or recurrent disease (LR TR nonviable). No new liver lesions. 2. Unchanged moderate intrahepatic biliary ductal dilation within the left hemiliver likely due to stricture at ablation site. 3. Unchanged distal common bile duct stone versus debris. Dictated by: Brissa Tucker M.D. The radiology attending physician has personally reviewed this study, and had reviewed and/or edited this written report and agrees with it. Electronically signed by: Lavon Suero M.D. Staci Spangler MD [facility] MRI PROCEDURES F inal Result * PSA screen (09/20/2018 7:23 AM CDT) PSA-Total 0.19 <=3.90 ng/mL [facility] Comment: Interpretive Data AGE SEX REFERENCE INTERVAL 0 minutes-150 years Female None 0 minutes-49 years Male None 50-59 years Male 0-3.90 60-69 years Male 0-5.40 70-79 years Male 0-6.20 80-150 years Male 0-6.20 Current interpretive data last revised 2017. Blood specimen (specimen) 09/20/2018 7:23 AM CDT 09/20/2018 8:16 AM CDT Dequan Frye MD LAB BLOOD ORDERABLES Fi nal Result Performing Organization Address [facility] Co de Phone Number [facility] [place] [address] * Hepatitis C antibody (09/20/2018 7:23 AM CDT) Hep C Ab Nonreactive Nonreactive [facility] Comment: Interpretive Data Positive results should be confirmed by a molecular method. If positive, a second separately collected sample should be submitted for Hepatitis C Virus (HCV) RNA Detection and Quantitation by Real-Time Reverse School Psychologist-PCR (RT-PCR). Current interpretive data was last revised on 2016. Blood specimen (specimen) 09/20/2018 7:23 AM CDT 09/20/2018 8:15 AM CDT Dequan Frye MD LAB MICROBIOLOGY - GENE RAL ORDERABLES Edited Result - Final Performing Organization Address [facility] de Phone Number [facility] [place] [address] * COLONOSCOPY REPORT (05/02/2015) Anatomical Region Laterality Modality Other Narrative 05/02/2015 Ordered by an unspecified provider. Result [facility] Historical Provider GI PROCEDURE ORDERABLES F inal Result from Last 3 Months or Most Recently Relevant to Health Maintenance Insurance IDPA [facility] MEDICARE ADVANTAGE IDPA [facility] MEDICARE ADVANTAGE [facility] Address: [address] [address] [place] [address] [employer] MEDICARE ADVANTAGE [facility] Address: [address] [address] [facility] MEDICARE AD[facility]ANTAGE [facility] Address[address] [address] [facility] MEDICARE ADVANTAGE [facility] Address: [place] [id number] [employer] [place] [address] [place] [address] [facility] MDCR HMO REF [facility] Address: [address] [address] [place] [address] [facility] MDCR HMO REF Advance Directives For more information, please contact: [phone] * Full Code (Latest Code Status on File) Date Activated Date Inactivated Comments 06/08/2024 1:35 PM 06/08/2024 7:39 PM * Full Code Date Activated Date Inactivated Comments 11/24/2022 1:58 PM 11/25/2022 2:41 PM * Full Code Date Activated Date Inactivated Comments 10/03/2022 9:44 AM 10/04/2022 4:02 PM * Full Code Date Activated Date Inactivated Comments 07/21/2022 1:21 PM 07/22/2022 1:37 PM * Full Code Date Activated Date Inactivated Comments 07/10/2022 1:37 PM 07/10/2022 7:42 PM Care Teams Him Coder Relationship Specialty Start Date End Date Lian Melchor MD [id number] [address] PCP - General Gastroenterology 11/13/22 Dequan Frye MD Referring Physician Transplant Hepatology 08/19/18
--- OUTSIDE RECORDS SUMMARY | 2024-07-14 04:27 | XMS_ITS | Clinical Summary ---
Author Organization [facility] Address [address] [place] [address] Care Team Providers Care Coding Tech Name Role Phone Dequan Frye MD Unavailable [phone] Lian Melchor MD Primary Care Provider Allergies Active Allergy Reactions Criticality Noted Date Comments Ciprofloxacin Stomach upset Low Eletriptan Hbr Unknown 08/21/2013 Eletriptan Hbr Unknown 07/20/2022 Fentanyl Delusions,Hallucinat ions ,Agitation,Nausea only High 11/02/2018 Extreme agitation/paradoxical reaction requiring precedex and ICU transfer Fentanyl Delusions,Agitation Medium 07/20/2022 Mouthcard Swollen tongue High 09/20/2018 Throat closes Medications [...] the original. Best number to call is [phone]. Cell phone has been turned off as [...] (06/11/2022): Added automatically from request for surgery [id number] Seizures 12/10/2020 Osteopenia 09/21/2018 Chronic viral hepatitis B 08/31/2018 Overview (08/31/2018): Added automatically from request for surgery [id number] Hepatocellular carcinoma 08/09/2018 Chronic viral hepatitis B wi thout delta agent and without coma 08/09/2018 Nondependent alcohol abuse, in remission 013 Smokes tobacco daily 05/11/2012 Pre-transplant evaluation for liver transplant Emphysema Encounters Date Type Department Care Team Description 06/23/2024 Results Follow-Up [facility]enter[facility] [address] [facility] 12th [place] [address] [place] [address] Staci Spangler MD 06/14/2024 Orders Only [facility] [address] [facility] Medical Office Building [address], [address] [place] [phone] Kee Lew MD Common bile duct stone (Primary Dx); Encounter for replacement of biliary stent 06/13/2024 Orders Only [facility] [address] [facility] Medical Office [address], [address] [place] [phone] Kee Lew MD Common bile duct stone (Primary Dx); Encounter for replacement of biliary stent 06/13/2024 Results Follow-Up [facility] Gastroenter[facility] [address] [facility] Office Building [address], [address] [place] [phone] Dorie Caba RN 06/08/2024 2:30 PM CDT - 06/08/2024 3:00 PM CDT Surgery [facility] [address] [place] [phone] Kee Lew MD ENDO ENDOSCOPIC RETROGRADE CHOLANGIOPANCREATOGRAPHY WITH STENT PLACEMENT [[id number]] 06/08/2024 1:52 PM CDT Anesthesia Event [facility] [address] [place] [phone] Jose M Magallon DO 06/08/2024 1:29 PM CDT - 06/08/2024 3:39 PM CDT Hospital Encounter [facility] [address] [place] [phone] Kee Lew MD RUQ pain Discharge Disposition: Discharge to home or self care 06/08/2024 6:54 AM CDT - 06/08/2024 11:59 PM CDT Hospital Encounter [facility] [place] [phone] Upper abdominal pain Discharge Disposition: Discharge to home or self care 05/24/2024 Telephone [facility] [address] [facility] Medical Office Building [address], [address] [place] [phone] Adriana Enrique, ETELVINA 05/24/2024 Telephone [facility] [address] [facility] Medical Office Building [address], [address] [place] [phone] Adriana Enrique, ETELVINA 05/24/2024 Documentation [facility] [address] [facility] 12th [place] [address] [place] [address] Angela Lincoln RN 05/23/2024 Telephone [facility] [address] [facility] Medical Office [address], [address] [place] [phone] Adriana Enrique RN 05/18/2024 Results Follow-Up [facility] [address] [facility] 12th [place] [address] [place] [address] Staci Spangler MD 05/13/2024 1:02 PM CDT - 05/13/2024 11:59 PM CDT Hospital Encounter [facility] Radiology at [address] [id number] Chronic viral hepatitis B without delta agent and without coma (HCC); Cirrhosis of liver without ascites, unspecified hepatic cirrhosis type (HCC) Discharge Disposition: Discharge to home or self care 05/13/2024 Orders Only [facility] Radiology at [address] [address] Petra Rust RN from Last 3 Months Immunizations Immunization Administration [...] on file 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 Gender Identity Not on file Sexual Orientation [...] 08/04/2024 1:00 PM CDT Hospital Encounter [facility] [address] [place] [phone] Kee Lew MD [address] [address] Common bile duct stone; Encounter for replacement of biliary stent 08/04/2024 1:00 PM CDT - 08/04/2024 1:30 PM CDT Surgery [facility] [address] [place] [phone] Kee Lew MD [address] [address] ERCP w/Spyglass [[id number]] Scheduled Procedures Name Priority [...] Vaccine (2 - season) 10/31/202307/2020 Influenza Vaccine (Season Ended) 2024 12/21/19 19, 02/16/2006 Colon Cancer Screening-Colonoscopy 05/01/20252015 DTaP/Tdap/Td Vaccine (2 [...] telling anyone). Medical Devices Implanted Type Area Air Conditioning Supervisor Device Identifier Shelf Expiration Date Model / Serial / Lot [employer] Becca 10fr 5cm Biliary Double Pigtail Stent [id number] - [id number] Implanted:Qty: 1 on 06/08/2024 by Kee Lew MD at [facility] Stent N/A: Bile Duct [employer] Becca 05/01/2026 [id number] / / [id number] Lower Leg Ortho Hardware-01/16/20 18 Implanted: 018 (Quantity not on file) Left: Leg [employer]ActivityPal S220gh Embosphere Prefill Saline Syringe Compressible Nonaggregate - [id number] Implanted:Qty: 1 on 11/02/[address] [facility] MyActivityPal 05/29/2021 [id number] / / [id number] Procedures Procedure Name Priority Date/Time Associated Diagnosis Comments [id number], TUMOR MARKER Routine 06/15/2024 12:46 PM CDT [...] - 06/16/2024 11:10 AM CDT Performed at: - [address] [id number] Smoking Pipe Liner: Juan Carlos Mcgee PhD, Phone: [phone] Staci Spangler MD LAB BLOOD ORDERABLES Final Result [facility] - 01 * (ABNORMAL) [id number]-Xafjvzqpjnt, Tumor Marker (06/15/2024 12:46 PM CDT) [facility] alpha Fetoprotein, tumor marker 36.3(H) 0.0 - [...] - 06/17/2024 5:07 AM CDT Performed at: [address] [place] [id number] Smoking Pipe Liner: Juan Carlos Mcgee PhD, Phone: [phone] Staci Spangler MD LAB BLOOD ORDERABLES Final Result Performing Organization Address [facility] Co de Phone Number [facility] - * (ABNORMAL) Protime-INR (06/15/2024 12:46 PM CDT) Pathologist [facility] [place] INR 1.1 0.9 - 1.2 [facility] - 01 Comment: Reference interval is for non-anticoagulated patients. Suggested INR therapeutic range for Vitamin K antagonist therapy: Standard Dose (moderate intensity therapeutic range): 2.0 - 3.0 Higher intensity therapeutic range 2.5 - 3.5 PT 12.2(H) 9.1 - 12.0 sec [facility] - 01 Blood 06/15/2024 12:4 6 PM CDT 06/15/2024 Narrative [facility] - 06/16/2024 8:12 AM CDT Performed at: [address] [place] [id number] Smoking Pipe Liner: Juan Carlos Mcgee PhD, Phone: [phone] Staci Spangler MD LAB BLOOD ORDERABLES Final Result Performing Organization Address [facility] Co de Phone Number [facility] - * Gamma GT (06/15/2024 12:46 PM CDT) Pathologist [facility] [place] GGT 62 0 - 65 IU/L [facility] - 01 Blood 06/15/2024 12:4 6 PM CDT 06/15/2024 Narrative [facility] - 06/16/2024 8:12 AM CDT Performed at: [address] [id number] Smoking Pipe Liner: Juan Carlos Mcgee PhD, Phone: [phone] us Staci Spangler MD LAB BLOOD ORDERABLES Final Result Performing Organization Address [facility] Co de Phone Number [facility] * Bilirubin, direct (06/15/2024 12:46 PM CDT) [facility] Bilirubin, direct 0.19 0.00 - 0.40 mg/dL [facility] - 01 Blood 06/15/2024 12:4 6 PM CDT 06/15/2024 Narrative [facility] - 06/16/2024 8:12 AM CDT Performed at: [address] [place] [id number] Smoking Pipe Liner: Juan Carlos Mcgee PhD, Phone: [phone] us Staci Spangler MD LAB BLOOD ORDERABLES Final Result Performing Organization Address [facility]/ZIP Co de Phone Number [facility] * (ABNORMAL) Comprehensive metabolic panel (06/15/2024 12:46 PM CDT) [facility] Glucose 60(L) 70 - 99 mg/dL [facility] [...] - 06/16/2024 8:12 AM CDT Performed at: - [address] [id number] Smoking Pipe Liner: Juan Carlos Mcgee PhD, Phone: [phone] us Staci Spangler MD LAB BLOOD ORDERABLES Final Result [facility] - 01 * Cytology (06/08/2024 2:12 PM CDT) Fluid (Common Bile Duct (Cytology)) 06/08/2024 2:12 PM CDT Narrative PATHOLOGY [facility] - 06/13/2024 9:50 AM CDT [address] [address] Tele: Maria Luisa Huerta MD - Ice Plant Operator Note to Patients: This report may contain [...] the details. CYTOLOGY REPORT Patient Name: CAIN FORD Address: [address], [place], [place] [address] Gender: M : 1965 (Age: 58) Service: Gastro Location: [facility]: [id number] Patient Type [facility] SAME DAY SURGERY Taken: 06/08/2024 Reported: 06/13/2024 [...] malignancy are not evident. Clerical Data Follows [id number], 90783` REPORT IMAGES AND/OR SCANNED DOCUMENTS ONLY VIEWABLE IN PDF FORMAT The immunohistochemical test(s) cited in this report, if any, was developed and its performance characteristics determined by [facility] Pathology Department. It has not been cleared or approved by the U.S. Food and Drug Administration. The FDA has determined that such clearance or approval is not necessary. This test is used for clinical purposes. It should not be regarded as investigational or for research. [facility] Laboratory is certified under the Clinical Laboratory Improvement Amendments of 1988 (CLIA) as qualified to perform high complexity testing. Immunostains were performed on formalin-fixed paraffin embedded tissue using a polymer diaminobenzidine chromogen detection system. Antibodies used may include clone 1D5 (mouse monoclonal, estrogen receptor), clone HaI193 (mouse monoclonal progesterone receptor), MIB-1 (mouse monoclonal, Ki- 67), and CD117 (rabbit polyclonal, c-kit). In the event that immunohistochemistry or special stains have been performed, attending physician has confirmed appropriateness of controls. Frozen section, operating room consultation, gross examination and dissection, and case sign out may have been performed in part or completely in the following laboratories: [facility], [address] [facility], [place] [address] [facility], [address] [place] [address], [place] [address]. Kee Lew MD LAB CYTOLOGY ORDER GAYLE Final Result Performing Organization Address City/[facility]/ZIP Co de Phone Number PATHOLOGY [facility] Laboratory Receiving [address] [place] [address] * [place] ERCP (06/08/2024 2:10 PM CDT) Narrative [facility] - 06/08/2024 2:20 PM CDT The images from this study are not interpreted by Radiology. Please refer to the physician's procedure / OR operative note. Kee Lew MD IMG FLUOROSCOPY AR OCEDURES Final Result Performing Organization Address [facility] Co de Phone Number [facility] * ERCP (06/08/2024 1:42 PM CDT) Anatomical Region Laterality Modality Other Narrative Procedure Note Kee Lew MD - 06/08/2024 1:42 PM CDT ENDOSCOPY LAB Patient Name: Cain Ford Procedure Date: 06/08/2024 1:42 PM Admit Type: Outpatient Room: [facility] Date of : 1965 Instrument Name: [id number] Gender: Male Note Status: Finalized Procedure: ERCP Indications: Bile duct stone(s), history of HCC status postliver directed therapy Providers: Kee Lew M.D. Referring MD: Staci Spangler M.D., Lian Melchor M.D. Medicines: Indomethacin 100 mg AR, Rocephin 2 g IV, Monitored Anesthesia Care [...] The patienttolerated the procedure well. Findings: A pump press operator film of the abdomen was obtained. Surgical [...] this procedure please call my office at [phone] ([phone]) to speak pam nurses. After hours and evenings please call [phone] and speak to the GI fellow collection systems technician. Please tell them that Dr. Lew did yourprocedure and that your were instructed to have the fellowcall me or the physician covering for me to discuss the management of your condition. If you have an urgent problem, please go to the nearest emergency roomand have the ER doctor call my office during the day or [facility] transfer ([phone]) center after hours and weekends to arrange admission or transfer to our facility. - Call my nurses in the GI office at [phone] ([phone]) for your final pathology results in7 days. Attending Participation: I personally performed the entire procedure. Electronically signed by Kee Lew MD Kee Lew M.D. 06/08/2024 2:21:40 PM This document was signed electronically. Number of Addenda: 0 Note Initiated On: 06/08/2024 1:42 PM Scope In: Scope Out: Kee Lew MD ENDOSCOPY PROCEDUR ES Final [...] to 15 cm in the craniocaudal dimension. [place] bodies are noted in the spleen. Adrenals: [...] by: Lavon Suero M.D. Staci Spangler MD [facility] [place] PROCED[place] F inal Result * PSA screen (09/20/2018 7:23 AM CDT) PSA-Total 0.19 <=3.90 ng/mL [facility] Comment: Interpretive Data AGE SEX REFERENCE INTERVAL 0 minutes-150 years Female None 0 minutes-49 years Male None 50-59 years Male 0-3.90 60-69 years Male 0-5.40 70-79 years Male 0-6.20 80-150 years Male 0-6.20 Current interpretive data last revised 2017. Blood specimen (specimen) 09/20/2018 7:23 AM CDT 09/20/2018 8:16 AM CDT Dequan Frye MD LAB BLOOD ORDERABLES Fi nal Result Performing Organization Address [facility]/ZIP Co de Phone Number [facility] [place] [address] * Hepatitis C antibody (09/20/2018 7:23 AM CDT) Hep C Ab Nonreactive Nonreactive [facility] Comment: Interpretive Data Positive results should be confirmed by a molecular method. If positive, a second separately collected sample should be submitted for Hepatitis C Virus (HCV) RNA Detection and Quantitation by Real-Time Reverse Book Mender-PCR (RT-PCR). Current interpretive data was last revised on 2016. Blood specimen (specimen) 09/20/2018 7:23 AM CDT 09/20/2018 8:15 AM CDT Dequan Frye MD LAB MICROBIOLOGY - GENE RAL ORDERABLES Edited Result - Final Performing Organization Address [facility] Co de Phone Number [facility] Department [place] [address] * COLONOSCOPY REPORT (05/02/2015) Anatomical Region Laterality Modality Other Narrative 05/02/2015 Ordered by an unspecified provider. Historical Provider GI PROCEDURE ORDERABLES F inal Result from Last 3 Months or Most Recently Relevant to Health Maintenance [place] [address] IDPA [facility] MEDICARE ADVANTAGE IDPA [facility] MEDICARE ADVANTAGE [facility] MEDICARE ADVANTAGE [place] [id number] UHC MEDICARE ADVANTAGE [facility] Address: [address] [address] [place] [id number] UHC MEDICARE ADVANTAGE [facility] Address: [address] [address] [place] [address] TRANSPLANT [employer] MEDICARE [place] [address] [facility] MDCR HMO REF [facility] MEDIC[facility] Address: [address] [address] [place] [address] [facility] Address: [address] [address] [place] [address] Advance Directives For more information, please contact: [phone] * Full Code (Latest Code Status on [...] 1:37 PM 07/10/2022 7:42 PM Care Teams Coding Tech Relationship Specialty [place] [address] [place] [address] PCP - General Gastroenterology 11/13/22 Dequan Frye MD Referring Physician Transplant Hepatology 08/19/18
--- OUTSIDE RECORDS SUMMARY | 2024-07-14 04:27 | XMS_ITS | Encounter Summary ---
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 Gender Identity Not on file Sexual Orientation Not on file 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 Not on file Not on file documented as of this encounter Plan of Treatment Upcoming Encounters Date Type Department Care Team (Latest Contact Info) Description 08/04/2024 1:00 PM CDT Hospital Encounter [facility] [address] [place] [phone] Kee Lew MD [address] [place], [place] [phone] Common bile duct stone; Encounter for replacement of biliary stent 08/04/2024 1:00 PM CDT - 08/04/2024 1:30 PM CDT Surgery [facility] [place] [phone] Kee Lew MD [address] [place], [place] [phone] ERCP w/Spyglass [[id number]] Scheduled Procedures Name Priority [...] on filedocumented in this encounter Care Teams Special Warfare Combatant Crewman Relationship Specialty Start Date End Date Lian Melchor MD [address] [address] PCP - General Gastroenterology 11/13/22 Dequan Frye MD Referring Physician Transplant Hepatology 08/19/18 documented as of this encounter
--- OUTSIDE RECORDS SUMMARY | 2024-07-14 04:27 | XMS_ITS ---
Author Organization [facility] Address [address] [place] [address] Care Team Providers Care Staffing Clerk Name Role Phone Dequan Frye MD Unavailable iLan Melchor MD Primary Care Provider Active Problems Patient Care Coordination No te Formatting of this note migh t be different from the original. Best number to call is [phone]. Cell phone has been turned off as [...] (06/11/2022): Added automatically from request for surgery [id number] Seizures 12/10/2020 Osteopenia 09/21/2018 Chronic viral hepatitis B 08/31/2018 Overview (08/31/2018): Added automatically from request for surgery [id number] Hepatocellular carcinoma 08/09/2018 Chronic viral hepatitis B [...] Automatic Entry Manual Entr y Fluoro Time 22.333 minutes 22.333 minutes 0 minutes Air kerma at the reference point (Ka,r) 345 mGy 3 45 mGy 0 mGy DLP 3,581 mGycm 3,581 mGycm 0 mGycm
--- OUTSIDE RECORDS SUMMARY | 2024-07-14 04:27 | XMS_ITS | Encounter Summary ---
Author Organization [facility] Address [address] [place] [address] Care Team Providers Care Adjustment Clerk Name Role Phone Jazmin Shankar MD Primary Care Provider [phone] Cedrick Barriga MD Primary Care Provider [phone] Unknown, Notinfile Primary Care Provider Unavail able Cedrick Barriga MD Primary Care Provider [phone] Cedrick Barriga MD Unavailable [phone] Olya Corcoran RN Unavailable [phone] Dequan Frye MD Unavailable [phone] Melissa Schumacher RN Unavailable [phone] Lian Melchor MD Primary Care Provider Encounter Details Date Type Department Care Team (Late st Contact Info) Description 09/15/2019 Telephone [facility] [place], [place] [phone] Piotr Trujillo MD [address] [place], [place] [phone] Social History Tobacco Use Types Packs/Day Years Used Date Smoking Tobacco: Every Day Cigarettes 0.3 42.4 Started: 1982 Smokeless Tobacco: Never Comments:trying to quit-smok ing Alcohol Use Standard Drinks/Week Comments Not Currently 0 (1 standard drink = 0.6 oz pur e alcohol) denies Sex and Gender Information Value Date Recorded Sex Assigned at Not on file Legal Sex Male 2:43 AM DATA QUALITY CONSULTANT Gender Identity Not on file Sexual Orientation Not on file documented as of this encounter Plan of Treatment Upcoming Encounters Date Type Department Care Team (Latest Contact Info) Description 08/04/2024 1:00 PM CDT Hospital Encounter [facility] [address] [place] [address] Kee Lew MD [address] [place], [place] [phone] Common bile duct stone; Encounter for replacement of biliary stent 08/04/2024 1:00 PM CDT - 08/04/2024 1:30 PM CDT Surgery [facility] [address] [place] [phone] Kee Lew MD [address] [place], [place] [phone] ERCP w/Spyglass [GI527] Scheduled Procedures Name Priority [...] COVID: Suspected 03/01/2023 03/01/2023 03/01/2023 10:12 PM DATA QUALITY CONSULTANT RSV, droplet 03/01/2023 03/01/2023 03/08/2023 3:05 AM DATA QUALITY CONSULTANT documented as of this encounter Care Teams Adjustment Clerk Relationship Specialty Start Date End Date Jazmin Shankar MD PCP - General Family Medicine 08/09/18 12/23/20 Cedrick Barriga MD [address] [place] [address] PCP - General 12/24/20 07/19/22 Unknown, Notinfile PCP - General 07/20/22 07/20/22 Cedrick Barriga MD [address] [place] [address] PCP - General Family Medicine 07/21/22 11/12/22 Lian Melchor MD [address] [place] [address] PCP - General Gastroenterology 11/13/22 Cedrick Barriga MD [address] [place] [address] 07/20/22 08/11/22 Olya Corcoran RN Data Entry Processor 08/10/1812/09 Dequan Frye MD Referring Physician Transplant Hepatology 08/19/18 Melissa Schumacher, ETELVINA [address] [address] Data Entry Processor 01/29/20 documented as of this encounter
--- OUTSIDE RECORDS SUMMARY | 2024-07-14 04:29 | XMS_ITS | CONTINUITY OF CARE DOCUMENT ---
Author Name jud renner Address Unknown Organization [facility] Address [address] [facility] [address] [place] [address] Phone [phone] Care Team Providers Care Wash Oil Pump Operator Name Role Phone Mason GUTIERREZ, Chao Unavailable Chao Cuevas MD Unavailable INSURANCE PROVIDERS Payer name Policy type / Coverage type [place] red constitution party ID [employer] FAMILY [employer] Medicaid 1 [id number] AARP MEDICARE ADVANTAGE HMO-POS HMO [id number]
[2024-07-14 04:47] LABS: Alanine Aminotransferase 45 U/L (6-50); Albumin Level 3.9 g/dL (3.5-5.1); Alkaline Phosphatase 128 U/L (38-126); Anion Gap 17 mmol/L (4-12); Aspartate Amino Transferase 45 U/L (17-59); Basophils Percent Auto 0.2 % (0.2-1.2); Bilirubin,Total 1.1 mg/dL (0.2-1.3); Blood Urea Nitrogen 26 mg/dL (9-20); Calcium 8.9 mg/dL (8.4-10.2); Carbon Dioxide 15 mmol/L (22-30); Chloride 105 mmol/L (98-107); Eosinophils Percent Auto 0.2 % (0-4.4); Estimated Glomerular Filt Rate 49; Glucose 163 mg/dL (65-110); Hematocrit 36.9 % (42.0-52.0); Hemoglobin 11.9 g/dL (14.0-18.0); Immature Granulocyte Absolute 0.08 K/mm3 (0.00-0.031); Immature Granulocyte Percent A 0.7 % (0-0.5); Lymphocytes Absolute Auto 0.51 K/mm3 (0.9-3.2); Lymphocytes Percent Auto 4.5 % (18.3-44.2); Mean Corpuscular HGB Conc 32.2 g/dl (32-36); Mean Corpuscular Hemoglobin 30.2 pg (26-34); Mean Corpuscular Volume 93.7 fl (80-100); Mean Platelet Volume 12.3 fl (7.4-10.4); Monocytes Absolute Auto 1.1 K/mm3 (0.1-0.6); Neutrophils Absolute Auto 9.5 K/mm3 (1.3-6.7); Neutrophils Percent Auto 84.4 % (45.5-73.1); Potassium 3.9 mmol/L (3.4-5.0); Red Blood Count 3.94 M/mm3 (4.6-6.20); Sodium 137 mmol/L (137-145); White Blood Count 11.3 K/mm3 (4.5-10.0)
[2024-07-14 04:51] LABS: Platelet Count Result 80 k/mm3 (150-375)
[2024-07-14 04:59] LABS: Amphetamine Screen Urine Negative (Negative); Barbiturate Screen Urine Negative (Negative); Benzodiazepines Screen Urine Negative (Negative); Cannabinoid Screen Urine Positive (Negative); Cocaine Screen Urine Negative (Negative); Methadone Screen Urine Negative (Negative); Opiate Screen Urine Negative (Negative); Phencyclidine Screen Urine Negative (Negative)
[2024-07-14 05:00] LABS: Lactic Acid Reflex 6.5 mmol/L (0.7-2.0)
[2024-07-14 05:01] LABS: Ethanol < 10 mg/dL (<10)
--- NOTE | 2024-07-14 05:08 | ED.SEIZURE ---
HPI - Seizure General Chief Complaint: Seizure Stated Complaint: Unknown History of Present Illness HPI Narrative: 58-year-old male with past medical history including seizure disorder on Keppra, alcohol abuse, liver cirrhosis, hepatitis-C, HCC, COPD. Patient presents to the emergency department in suspected status epilepticus. Patient was last seen well around 8:00 p.m. by his family members who stated that he went upstairs to go to bed. When they found him he was seizing and called EMS. EMS notes that he was minimally responsive only to painful stimuli but breathing comfortably did not exhibit any active seizure at that time. On arrival to the emergency department patient has another seizure while getting situated in bed 10 for evaluation. IV was established by nursing staff, patient was examined and appeared to be having active seizure with right-sided gaze preference and generalized shaking. IV was established and medications provided. Patient's family provides collateral information upon arrival to the emergency department after initial stabilization. Seizure History: Yes (narcotic and alcohol withdrawal) Related Data Home Medications ?Medication ?Instructions ?Recorded ?Confirmed ?Last Taken ?Type gabapentin 800 mg tablet 800 mg PO QID 02/16/20 02/15/23 12/07/23 History tenofovir disoproxil fumarate 300 300 mg PO DAILY 02/16/20 02/15/23 06/16/22 History mg tablet albuterol sulfate 90 mcg/actuation 2 puff inhalation Q4-6H PRN 01/11/21 02/15/23 12/07/23 History aerosol inhaler Shortness Of Breath Or Wheezing tamsulosin 0.4 mg capsule 0.4 mg PO DAILY 01/11/21 02/15/23 12/07/23 History hydrocodone 5 mg-acetaminophen 325 1 tablet PO TID PRN Pain, Moderate 08/13/22 02/15/23 12/07/23 History mg tablet budesonide-formoterol HFA 160 2 puff inhalation DAILY 02/15/23 02/15/23 12/07/23 History mcg-4.5 mcg/actuation aerosol inhaler (Symbicort) fluticasone furoate 200 1 inh inhalation DAILY 02/15/23 02/15/23 12/07/23 History mcg-vilanterol 25 mcg/dose inhalation powder (Breo Ellipta) Allergies Allergy/AdvReac Type Severity Reaction Status Date / Time hornet venom Allergy Unknown Unknown Verified 04/10/24 10:19 strawberry Allergy Unknown Unknown Verified 04/10/24 10:19 ciprofloxacin Allergy Unknown Verified 04/10/24 10:19 fentanyl Allergy Unknown Verified 04/10/24 10:19 metronidazole AdvReac Unknown Nausea And Verified 04/10/24 10:19 Vomiting Review of Systems Review of Systems: ROS unobtainable: Yes unobtainable due to medical condition and unobtainable due to mental status [facility] Past Medical History Medical History Alcohol abuse Most recent use 10/29/2020 Chronic pain syndrome Hx of peptic ulcer as a child GERD (gastroesophageal reflux disease) History of hepatitis B Hepatocellular carcinoma COPD (chronic obstructive pulmonary disease) Cirrhosis Hepatocellular carcinoma radiation treatment Seizure Hepatic encephalopathy Surgical History Surgical History History of tibial fracture requiring surgical repair. History of cholecystectomy Family History Family History Father Hypertension Cerebrovascular accident Myocardial infarct Sibling Hypertension Sibling Hypertension Father Hypertension Cerebrovascular accident Family history of coronary artery disease Sibling Hypertension Social History Social History Social History: Smokes 1/2 ppd since 17yo. He is trying to quit. Lives at home with his and children. He is a full code. The patient had 7 children. He is on disability. The patient continues to use marijuana gummies. He no longer uses cocaine or other illicit drugs. Uses marijuana daily his is the durable power [place] attorney Code status full code Smoking packs per day: 1 Smoking cigarettes per day: 20.0 Years smoked: 39 Smoking pack-years: 39.00 Smoking status: Current every day smoker Tobacco type: cigarettes Second hand tobacco smoke exposure: Yes Smoking end date: 03/01/13 Additional smoking assessment comments: Currently trying to quit. Alcohol intake: never Alcohol use details: Alcohol use noted 10/29/2020 with etoh level of 24. Substance use: current Substance use type: marijuana Other substance usage details: has not had alcohol in 16 years/ was never a heavy drinker per Last use: no meth/cocaine in 16 years/uses marijuana currently for pain/appetite Lack of Transportation: YES Lack of Food: Sometimes True Current Housing: I Have Housing Concerned About Future Housing: YES Difficulty Paying Gas/Electric Bills: YES Difficulty Paying for Meds: YES Currently Unemployed: YES Education: High School Diploma/GED Difficulty w/ Childcare or Family Care: YES Living arrangements: with family Occupation/Education: other Gender identity (if verbalized by the patient): Male Sexual Orientation (if Verbalized by the Patient): Straight or Heterosexual Spiritual care concerns: No Agree to blood products: Yes Exam Narrative: GENERAL: Generalized shaking with seizure activity, right-sided gaze preference HEAD: [Normocephalic, atraumatic.] EYES: [PERRLA and EOMI.] ENT: Dry mucous membranes, edentulous NECK: Supple. CHEST: Deep rapid respirations, clear to auscultation HEART: [Regular rate and rhythm]. No murmur heard. [Normal peripheral pulses.] ABDOMEN: [Soft, nondistended], [nontender], [No rigidity or guarding] EXTREMITIES: Normal range of motion. [No edema.] SKIN: Warm, dry, no rash. NEURO: Seemingly moving all extremities with no focal or lateralizing deficits but is actively seizing with right-sided gaze preference PSYCH: Unable to assess Course Vital Signs Vital signs: Vital Signs Temperature 35.8 C L 07/14/24 04:52 Pulse Rate 95 07/14/24 04:52 Respiratory Rate 07/14/24 04:52 Blood Pressure 137/78 07/14/24 04:52 Temperature 35.8 C L 07/14/24 04:52 Pulse Rate 109 H 07/14/24 06:46 Respiratory Rate 20 07/14/24 06:46 Blood Pressure 137/78 07/14/24 04:52 Procedures Central Line Placement Left SC: Central Line Date: 07/14/24 Central Line Time: 04:50 Discussed w/ the patient/family/POA,the placement of a central venous catheter, including its clinical necessity/indication & associated potential risks, benifits and alternatives.: Yes The patient/family/POA understand(s) and acknowledge(s) the need to proceed with central venous catheter insertion as an important element of the patient's clinical management.: Yes Time Out Performed: Yes Patient Placed on Monitor/Pulse Ox: Yes Max. Sterile Barrier Technique: Caps, large sterile sheet and hand hygiene Central Line Prep: 2% chlorhexidine scrub and sterile drapes applied Technique: seldinger Local Anesthetic: none Ultrasound Used for Placement: No Central Line Lumen Inserted: triple Post Procedure: sutured in place, good blood return, all ports aspirated, flushed, capped and sterile dressing applied Post Procedure X-Ray: tip of catheter in good position and no pneumothorax seen Patient Tolerated Procedure: well and no complications Complications: none Intubation Intubation #1: Intubation Date: 07/14/24 Intubation Time: 04:30 Time out performed: Yes sedative: Etomidate Mg Given: 20 paralytic: Rocuronium Mg Given: 70 Laryngoscope: fiber optic video scope Tube Size (cm): 7.5 Method of Intubation: orotracheal Number of Attempts: 1 Tube Secured Depth (cm): 23 Tube Secured Location: lips Tube Placement Confirmation: visualized tube passing through cords, equal breath sounds bilaterally, no breath sounds over epigastrium and confirmation by capnometry Patient Tolerated Procedure: well and no complications Intubation Complications: none MDM - Seizure MDM Narrative Medical decision making narrative: 58-year-old male with a past medical history including seizure disorder on Keppra, HCC, hepatitis-C, COPD, alcohol abuse. Patient presents to the emergency department after numerous seizures. Patient was last seen well around 8:00 p.m. when he went to bed, family members found him appearing to be postictal or ictal with generalized shaking and loss of consciousness. EMS arrived and patient is breathing spontaneously, protecting his airway but unresponsive to anything but pain. Patient transferred to the hospital via EMS. In room 10 during my initial evaluation patient had a generalized tonic-clonic seizure with right-sided gaze preference. He was given IV 4 mg Ativan which did abort the seizure activity but his gaze preference still continued. He seems to be moving all extremities without any lateralizing symptoms. Family members later provide collateral formation tells me that he is not taking any Keppra, previously been seen at [place] for seizure disorder, history of alcohol abuse but no recent drinking or history of withdrawal seizures. Patient was otherwise in his normal state of health without any recent illnesses or injuries. No concern for trauma. Differential diagnosis at this time includes status epilepticus, electrolyte disturbances, intracranial pathology such as a stroke or brain bleed, trauma, infectious pathology possible but less likely. Workup ordered including CBC, CMP, alcohol, urine drug screen, lactic acid, VBG. He was given 2 L of fluid and re-evaluated frequently. Prior to obtaining CT head imaging patient appeared to have another generalized seizure with right-sided gaze preference and shaking. At this point he became hypoxic, very cyanotic, non-rebreather applied and decision was made to intubate him for airway protection and control the seizure activity. Patient was given 4 mg of IV Ativan which aborted this seizure. Patient appeared to have runs of ventricular ectopy on the telemetry monitoring strip during the hypoxia episodes that resolved after magnesium and oxygen supplementation. Appears normal sinus at this time. Blood pressure remains on the soft side at this time with a blood pressure in the 80s, no tachycardia but he is tachypneic. Suspicion presently is for significant lactic acidosis and metabolic acidosis causing vaso plegia and hypotension. Patient provided 120 mcg of push dose epinephrine at bedside which improved his pressures into the 120 range and offer stable endotracheal intubation procedure. Patient given 2 ampules of bicarbonate for buffering until we can get him stabilized. Endotracheal intubation successful, patient placed on ventilator with settings of rate of 20, respiratory tidal volume of 400, peep of 5, FiO2 50%. Post intubation chest x-ray shows endotracheal tube and NG tube in place, no pneumonia or aspiration. Central venous catheter was placed for his soft blood pressures and confirmed on x-ray with appropriate positioning in the left subclavian vessels. Patient's blood pressure has responded nicely. As patient is currently sedated with Versed. CT scans were obtained as well as his remaining workup. CT of the head was unremarkable for any acute intracranial pathology or bleed/stroke. His laboratory assessments show a significant lactic acidosis, VBG shows metabolic acidosis consistent with lactic acidosis, MARLEEN but no significant likely derangements. Slight leukocytosis. I discussed the case with the [facility] transfer system to get him back to his neurologist or previous seizure workups have been done at [facility]. I was connected with the neurological ICU doctor and spoke to the fellow. Patient was accepted as a direct transfer to their Neuro ICU. Accepting physician is Dr. Koroma. Recommendations are to change him from Versed to propofol given his history of hepatitis and cirrhosis. Recommendations are to also titrate his norepinephrine with propofol in the event that he becomes hypotensive from the propofol. Recommendations to obtain blood cultures as well. Patient is stabilized at this time, transfer system anticipates a bed quickly and ALS ambulance will be arranged at that time. Family members were spoken to multiple times throughout there presents here in the emergency department and agreeable with the plan of care including transfer to [facility]. Medical Records Attestation: I reviewed the patient's medical records. Lab Data Attestation: I reviewed the patient's lab results. 07/14/24 02:09 07/14/24 02:09 Labs: Lab Results 07/14/24 07/14/24 Range/Units 02:09 04:29 WBC 11.3 H (4.5-10.0) K/mm3 RBC 3.94 L (4.6-6.20) M/mm3 Hgb 11.9 L (14.0-18.0) g/dL Hct 36.9 L (42.0-52.0) % MCV 93.7 (80-100) fl MCH 30.2 (26-34) pg MCHC 32.2 (32-36) g/dl RDW 16.0 H (11.5-14.5) % Plt Count 80 L (150-375) k/mm3 MPV 12.3 H (7.4-10.4) fl Immature Gran % (Auto) 0.7 H (0-0.5) % Neut % (Auto) 84.4 H (45.5-73.1) % Lymph % (Auto) 4.5 L (18.3-44.2) % [place] % (Auto) 10.0 H (2.6-8.5) % Eos % (Auto) 0.2 (0-4.4) % Baso % (Auto) 0.2 (0.2-1.2) % Lymph # (Auto) 0.51 L (0.9-3.2) K/mm3 [place] # (Auto) 1.1 H (0.1-0.6) K/mm3 Eos # (Auto) 0.0 (0-0.3) K/mm3 Baso # (Auto) 0.0 (0.0-0.1) K/mm3 Abs Immat Gran (auto) 0.08 H (0.00-0.031) K/mm3 Absolute Neuts (auto) 9.5 H (1.3-6.7) K/mm3 Absolute Nucleated RBC 0.000 (0.0-0.012) K/mm3 Band Neutrophils % 0 (0-6) % Nucleated RBC % 0.0 (0.0-0.2) % Platelet Estimate Decreased (Adequate) Hypochromasia 1+ Anisocytosis 1+ [place] Cells 2+ Schistocytes None seen Minute Volume Pending Vent Mode Pending Tidal Volume Pending PEEP Pending Peak Inspir Pressure Pending Pressure Support Pending Sodium 137 (137-145) mmol/L Potassium 3.9 (3.4-5.0) mmol/L Chloride 105 (98-107) mmol/L Carbon Dioxide 15 L (22-30) mmol/L Anion Gap 17 H (4-12) mmol/L BUN 26 H D (9-20) mg/dL Creatinine 1.46 H (0.7-1.3) mg/dL Estim Creat Clear Calc Not Reportable Estimated GFR 49 L (59 - ) Glucose 163 H (65-110) mg/dL Lactic Acid Cancelled 6.5 H* Calcium 8.9 (8.4-10.2) mg/dL Total Bilirubin 1.1 (0.2-1.3) mg/dL AST 45 (17-59) U/L ALT 45 (6-50) U/L Alkaline Phosphatase 128 H (38-126) U/L Total Protein 8.0 (6.3-8.2) g/dL Albumin 3.9 (3.5-5.1) g/dL Urine Opiates Screen Cancelled Negative Urine Methadone Screen Cancelled Negative Ur Barbiturates Screen Cancelled Negative Ur Phencyclidine Scrn Cancelled Negative Ur Amphetamine Screen Cancelled Negative U Benzodiazepines Scrn Cancelled Negative Urine Cocaine Screen Cancelled Negative U Cannabinoids Screen Cancelled Positive A Ethyl Alcohol < 10 (<10) mg/dL ABG Data ABG results: 07/14/24 04:29 VBG pH 7.284 L VBG pCO2 37.0 L VBG pO2 46.3 H VBG HCO3 17.2 L O2 Delivery Device Ventilator O2 Liters/Min Not Reportable FiO2 50 Attestation: I personally reviewed and interpreted this ABG as follows: Interpretation: Acute metabolic acidosis without appropriate compensation. Imaging Data Attestation: I personally reviewed and interpreted this imaging study as follows: My impression: Impressions Chest X-Ray 07/14/24 05:19 Impression: Probable COPD and biapical scarring. Support tubes, as above. Chest X-Ray 07/14/24 05:28 Impression: COPD with biapical scarring. No pneumothorax. Support tubes, as above. Head CT 07/14/24 05:28 Impression: No acute abnormality seen. Critical Care Time Critical Care Time Critical Care Time: Yes Total Critical Care Time: 106 (Critical care time is exclusive of the separately billed procedures above) Discharge Plan Discharge Clinical Impression: Status epilepticus, Respiratory failure requiring intubation, Acute metabolic acidosis, Acute kidney injury, Acute lactic acidosis, History of cirrhosis, History of hepatitis Patient Disposition: Acute Care Hospital Condition: Serious Patient Language: Greek Prescriptions: No Action ondansetron 4 mg tablet,disintegrating 4 mg PO Q6H PRN (Reason: nausea and vomiting) 3 Days Qty: 12 0RF prednisone 20 mg tablet 40 mg PO DAILY 5 Days Qty: 10 0RF doxycycline hyclate 100 mg capsule 100 mg PO BID 7 Days Qty: 14 0RF albuterol sulfate 90 mcg/actuation HFA aerosol inhaler 2 puff inhalation Q4-6H PRN (Reason: shortness of breath or wheezing) 30 Days Qty: 8.5 0RF hydrocodone-acetaminophen 5-325 mg tablet 1 tablet PO TID PRN (Reason: Pain, Moderate) budesonide-formoterol [Symbicort] 160-4.5 mcg/actuation HFA aerosol inhaler 2 puff INHALATION DAILY fluticasone furoate-vilanterol [Breo Ellipta] 200-25 mcg/dose blister with device 1 inh INHALATION DAILY levetiracetam [Keppra] 750 mg tablet 750 mg PO BID Qty: 60 0RF tamsulosin 0.4 mg capsule 0.4 mg PO DAILY albuterol sulfate 90 mcg/actuation HFA aerosol inhaler 2 puff INHALATION Q4-6H PRN (Reason: Shortness Of Breath Or Wheezing) levetiracetam [Keppra] 1,000 mg tablet 2,000 mg PO BID 30 Days Qty: 120 0RF hydrocodone-acetaminophen 5-325 mg tablet 1 tablet PO Q8H PRN (Reason: pain) Qty: 14 0RF acetaminophen [Tylenol Extra Strength] 500 mg tablet 1,000 mg PO TID PRN (Reason: pain) Qty: 30 0RF ibuprofen 600 mg tablet 600 mg PO TID PRN (Reason: pain) Qty: 20 0RF ondansetron 4 mg tablet,disintegrating 4 mg PO Q8H PRN (Reason: nausea and vomiting) Qty: 10 0RF gabapentin 800 mg Tablet 800 mg PO QID tenofovir disoproxil fumarate 300 mg Tablet 300 mg PO DAILY ondansetron 4 mg tablet,disintegrating 4 mg PO Q8H PRN (Reason: nausea and vomiting) Qty: 20 0RF Follow-up/Referrals: PHYSICIAN,PROFESSOR OF ARCHAEOLOGY [Primary Care Provider] - Time of Disposition: 06:30
[2024-07-14 05:10] LABS: Anisocytosis 1+; Band Neutrophils Percent 0 % (0-6); Hypochromasia 1+; Platelet Estimate Decreased (Adequate)
[2024-07-14 05:11] LABS: Burr Cells 2+; Schistocytes None Seen
[2024-07-14 05:32] LABS: Fractional Inspired Oxygen 50 %; HCO3 VBG 17.2 mEq/l (24.0-30.0); PO2 VBG 46.3 mmHg (35.0-45.0); pH VBG 7.284 (7.300-7.400)
[2024-07-14 05:33] LABS: Device VENTILATOR
[2024-07-14] MEDS: Please enter patient height and weight for medication dosing 1 EACH XX (05:53)
[2024-07-14] MEDS: PROPOFOL IV EMULSION 100 ML 1.82 MG IV CONT (06:00)
[2024-07-14] MEDS: LORazepam INJ (*CRX) 2 MG/ML VIAL 4 MG IV PUSH (06:26)
[2024-07-14 06:59] LABS: Reflex Lactic Acid Yes or No Add Lactic
--- NOTE | 2024-07-14 07:06 | PN_ITS ---
This report was moved to the correct visit on 07/20/2024. The original report was signed by Yair Esteves MD on 07/14/24705. Subjective Date/time seen: 07/14/24 07:06 Interval history: Patient care issued during EMR down time. Please see scanned in paper charting for additional collateral information as well as the additional signed encounter note done for the same visit under a different account number. Objective Data Vital Signs Vital Signs: Vital Signs - 24 hr 07/15/2503:34 Pulse Rate 77 Pulse Oximetry 100 Oxygen Delivery Mechanical Ventilation Fraction of Inspired Oxygen 50 Please be advised this is a medical document. It is intended for [id number] communication. It is written in medical language and may contain unfamiliar abbreviations or verbiage. Medical documents are intended to carry relevant information, facts as evident, and the clinical opinion of the practitioner at the time of the encounter. This report may have been done utilizing a voice recognition system. Attempts have been made to correct errors. However, there may be uncorrected grammatical, spelling, and recognition errors present. The file time of this note does not necessarily represent the time the patient was seen. Report Initialized date/time: Yair Esteves MD 07/14/24705 Electronically signed by: Yair Esteves MD 07/14/24705
--- NOTE | 2024-07-14 07:21 | PC.NURSE ---
RSI: BP 123/58 HR102 RR17 0328: 20mg Etom 0330: 70mg NOE BP 115/57 HR 106 O2:100 RR 13 0331: 7.5 ET Tube + color change, bilateral lung sounds 0339: 20mg Epi ( Adm) 0441: Central line placed by
[2024-07-14] MEDS: CENTRAL LINE FLUSH 10 ML IV PUSH (07:55)
[2024-07-14 09:00] LABS: Basophils Percent Auto 0.1 % (0.2-1.2); Hematocrit 34.7 % (42.0-52.0); Hemoglobin 11.2 g/dL (14.0-18.0); Immature Granulocyte Absolute 0.07 K/mm3 (0.00-0.031); Immature Granulocyte Percent A 0.6 % (0-0.5); Immature Platelet Fraction Pct 11.8 % (0.9-11.2); Lymphocytes Absolute Auto 0.18 K/mm3 (0.9-3.2); Lymphocytes Percent Auto 1.5 % (18.3-44.2); Mean Corpuscular HGB Conc 32.3 g/dl (32-36); Mean Corpuscular Hemoglobin 29.9 pg (26-34); Mean Corpuscular Volume 92.5 fl (80-100); Mean Platelet Volume 11.8 fl (7.4-10.4); Monocytes Absolute Auto 0.8 K/mm3 (0.1-0.6); Monocytes Percent Auto 6.5 % (2.6-8.5); Neutrophils Percent Auto 91.3 % (45.5-73.1); Platelet Count Result 74 k/mm3 (150-375); Red Blood Count 3.75 M/mm3 (4.6-6.20); Red Cell Distribution Width 16.2 % (11.5-14.5)
[2024-07-14 09:04] LABS: Lactic Acid 0.7 mmol/L (0.7-2.0)
[2024-07-19 12:55] LABS: Arterial Blood Gas Ventilator rate 20 /MIN
[2024-07-19 12:56] LABS: Arterial Blood Gas PEEP 5 cmH2O; Arterial Blood Gas Tidal Volume 400 ml; Arterial Blood Gas Vent Mode CMV
== END 2024-07-14 09:46 | disposition short-term general hospital (02) ==
PROVIDERS: Emergency Provider Student in an Organized Health Care Education/Training Program
DX: G40.901 Epilepsy, unspecified, not intractable, with status epilepticus (principal); J96.90 Respiratory failure, unspecified, unspecified whether with hypoxia or hypercapnia; E87.21 Acute metabolic acidosis; N17.9 Acute kidney failure, unspecified; K74.60 Unspecified cirrhosis of liver; B19.20 Unspecified viral hepatitis C without hepatic coma; J44.9 Chronic obstructive pulmonary disease, unspecified; F17.210 Nicotine dependence, cigarettes, uncomplicated; Z79.899 Other long term (current) drug therapy
CPT/HCPCS: 31500; 36415; 36556; 70450; 80053; 80307; 82077; 82803; 83605; 85025; 85055; 87040; 87181; 94002; 96361; 96365; 96366; 96367; 96375; 99291; C1751; J0171; J1953; J2060; J2704; J3475; J7120

== ENCOUNTER 2024-12-09 13:59 | Observation (INO) | payer MEDICARE, MEDICAID, SELFPAY ==
--- OUTSIDE RECORDS SUMMARY | 2011-11-03 03:45 | XMS_ITS | Continuity of Care Document ---
Author Organization [facility] Address [address] [place] [address] Phone Care Team Providers Care Heel Painter Name Role Phone Oniel Barnett MD Unavailable Unavailable Allergies, Adverse Reactions, Alerts Substance Reaction Status Criticality fentanyl Active No Information Medications Medication Instructions Dosage Effective Dates (start - stop) Status Comments PREVACID (unknown strength) take 1 capsule by ORAL route every day before a meal Not Available - Active HEPSERA (unknown strength) take 1 tablet by ORAL route every day Not Available - Active RYZOLT (unknown strength) take 2 tablet by ORAL route every day Not Available - Active ALBUTEROL (unknown strength) Not Available - Active Procedures Procedure Date Eye Exam, New Patient Certified EMR Advance Directives Directive Yes / No Effective Date File Name Resuscitation Not Answered N/A N/A Life Support Not Answered N/A N/A Intubation Not Answered N/A N/A Antibiotics Not Answered N/A N/A IV Fluid Support Not Answered N/A N/A Tube Feed Not Answered N/A N/A Other Directive N/A N/A WARNING:The information contained in this section is historical and is provided for information only and does not constitute a legal document or any assurance that the information is still accurate. Please verify the information with the eason of the legal document before using it for clinical purposes. Encounters Encounter Description Practice Location Reason(s) For Visit Diagnoses Date Provider Providers Copied on Encounter [facility], [address], [place], [place], [id number], [place] tel:[phone] SEC Eddie [place] Professional VISUAL DISCOMFORTTEAR FILM INSUFFIC NOS Sep-0 4-201 [address] On[place]. [address], [address], [place], [place], [id number], [place]. tel:[phone] Referring Provider: Oniel Goff, [address], [place], [address] . tel:[phone] Family History Family Member Type Diagnosis Age At Onset No Information Payers Payer name Insurance type Covered constitution party ID Authoriza tion(s) Medicare [facility] [id number] Medicaid [facility] [id number] Social History Type Description Quantity Date Captured Comments Alcohol Use Details No Caffeine Use Details No Tobacco Use Status Smoking Status No Information Sex Male Chief Complaint And Reason For Visit No Information Reason For Referral Reason For Referral No Information History Of Present Illness Encounter Date Complaint History Of Prese nt Illness No Information Functional Status Date Functional Assessmen t No Information Instructions Date Instruction Additional Infor mation TEAR FILM INSUFFIC N OS, OU- - vision not affected - will continue to monitor - Discussed reading glasses with pt. Pt draws a lot. Medications could cause eyes to be dry and cause headaches. Samples ATs given. Will monitor. MRx given to pt for bifocal to try. Related to TEAR FILM INSUFFIC NOS - 1 year or PRN Related to TEAR FILM INSUFFIC NOS Assessments Type Assessment Date No Information Patient Care Teams Name Effective Dates (start - stop) Status Members No Information
[2024-12-09] VITALS (13 sets, daily range): BP systolic 119–158; BP diastolic 52–82; PULSE 62–91; RESP 15–32; TEMP 36.6–37.2; O2SAT 98–100; BMI 15.3
--- NOTE | ~2024-12-09 | CT_ITS ---
EXAMINATION: CT brain ti simon, 12/09/2024 16:00 CDT HISTORY: altered mental status COMPARISON: No comparisons available. Technique: Axial images obtained of the brain without contrast. One or more of the following dose reduction techniques were used: automated exposure control, adjustment of the mA and/or kV according to patient size, use of iterative reconstruction technique. Findings: No acute infarct or parenchymal hemorrhage. No abnormal mass or mass effect. No midline shift. No extra-axial fluid collections. No hydrocephalus. Mastoid air cells unremarkable. Moderate bilateral maxillary sinusitis, underlying polyp formation is suspected. No acute fracture. No significant facial or scalp soft tissue swelling evident. No radiopaque foreign body is seen. Impression: 1.No acute intracranial abnormality. Reviewed, dictated and finalized at location P. Impression: 1.No acute intracranial abnormality.
--- NOTE | ~2024-12-09 | XR_ITS ---
EXAMINATION: XR chest 1V portable COMPARISON: No comparisons available. HISTORY: wheezing FINDINGS: COPD changes. Scattered small infiltrates. No pneumothorax. Heart is normal size. Mediastinal and hilar contours are within normal limits. Bony thorax no acute abnormality. Miscellaneous: None Impression: Early bilateral pneumonia Reviewed, dictated and finalized at location P. Impression: Early bilateral pneumonia
--- NOTE | 2024-12-09 14:11 | ECG_ITS ---
Test Date: 2024-12-09 14:08:25 Measurements Intervals [place] Rate: 74 P: 82 SD: 157 QRS: 57 QRSD: 98 T: 83 QT: 402 QTc: 446 Interpretive Statements SINUS RHYTHM POSSIBLE LEFT ATRIAL ENLARGEMENT MINIMAL Q WAVES- LAT/HIGH LAT LEADS NONSPECIFIC ST & T-WAVE ABNORMALITY- ANTEROLAT/INF LEADS BASELINE ARTIFACT- I, II, III, AVR, AVL, AVF, V4-V6 BORDERLINE ECG Compared to ECG 12/08/2023 00:48:43 NO SIGNIFICANT CHANGE Electronically Signed On 12-09-2024 15:50:23 CDT by Davidson Juarez D.O.
--- NOTE | 2024-12-09 14:32 | ED.GENADULT ---
HPI - General Adult General Chief complaint: Unspecified <Mary Foss APRN - Last Filed: 12/09/24 18:02> Stated complaint: getting ready to have a seizure per family <Mary Foss APRN - Last Filed: 12/09/24 18:02> Time Seen by Provider: 12/09/24 13:59 <Mary Foss APRN - Last Filed: 12/09/24 18:02> History of Present Illness HPI narrative: Patient is a 59-year-old male who presents to the ER because his family is concerned he is going to have a seizure. Upon examination patient declines to answer most questions. He does endorse back pain that started yesterday. Patient denies any abdominal pain. He reports he does not think he is going to have a seizure. Patient continues to grown throughout examination. According to his medical records he has a history of seizures and COPD. <Mary Foss APRN - Last Filed: 12/09/24 18:02> Related Data Home medications: Home Medications ?Medication ?Instructions ?Recorded ?Confirmed ?Last Taken ?Type gabapentin 800 mg tablet 800 mg PO QID 02/16/20 12/09/24 12/07/23 History tenofovir disoproxil fumarate 300 300 mg PO DAILY 02/16/20 12/09/24 06/16/22 History mg tablet tamsulosin 0.4 mg capsule 0.4 mg PO DAILY 01/11/21 12/09/24 12/07/23 History hydrocodone 5 mg-acetaminophen 325 1 tablet PO TID PRN Pain, Moderate 08/13/22 12/09/24 12/07/23 History mg tablet budesonide 160 mcg-glycopyr 9 2 inh inhalation BID 12/09/24 12/09/24 Unknown History mcg-formot 4.8 mcg/actuation HFA inhaler (Breztri Aerosphere) ferrous sulfate 325 mg (65 mg 325 mg PO DAILY 12/09/24 12/09/24 Unknown History iron) tablet (Feosol) levetiracetam 1,000 mg tablet 1,500 mg PO BID 12/09/24 12/09/24 Unknown History (Keppra) nortriptyline 10 mg capsule 10 mg PO QHS 12/09/24 12/09/24 Unknown History pantoprazole 40 mg tablet,delayed 40 mg PO DAILY 12/09/24 12/09/24 Unknown History release topiramate 50 mg tablet 50 mg PO Q12H 12/09/24 12/09/24 Unknown History <Mary Foss APRN - Last Filed: 12/09/24 18:02> Allergies/adverse reactions: Allergies Allergy/AdvReac Type Severity Reaction Status Date / Time hornet venom Allergy Unknown Unknown Verified 12/09/24 15:13 strawberry Allergy Unknown Unknown Verified 12/09/24 15:13 ciprofloxacin Allergy Unknown Verified 12/09/24 15:13 fentanyl Allergy Unknown Verified 12/09/24 15:13 metronidazole AdvReac Unknown Nausea And Verified 12/09/24 15:13 Vomiting <Mary Foss APRN - Last Filed: 12/09/24 18:02> Review of Systems Review of Systems: All systems reviewed & are unremarkable except as noted in HPI and below <Mary Foss APRN - Last Filed: 12/09/24 18:02> [facility] Past Medical History Medical History: Medical History Alcohol abuse Most recent use 10/29/2020 Chronic pain syndrome Hx of peptic ulcer as a child GERD (gastroesophageal reflux disease) History of hepatitis B Hepatocellular carcinoma COPD (chronic obstructive pulmonary disease) Cirrhosis Hepatocellular carcinoma radiation treatment Seizure Hepatic encephalopathy <Mary Foss APRN - Last Filed: 12/09/24 18:02> Surgical History Surgical History: Surgical History History of tibial fracture requiring surgical repair. History of cholecystectomy <Mary Foss APRN - Last Filed: 12/09/24 18:02> Family History Family History: Family History Father Hypertension Cerebrovascular accident Myocardial infarct Sibling Hypertension Sibling Hypertension Father Hypertension Cerebrovascular accident Family history of coronary artery disease Sibling Hypertension <Mary Foss APRN - Last Filed: 12/09/24 18:02> Social History Social History: Social History Social History: Smokes 1/2 ppd since 17yo. He is trying to quit. Lives at home with his and children. He is a full code. The patient had 7 children. He is on disability. The patient continues to use marijuana gummies. He no longer uses cocaine or other illicit drugs. 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 Alcohol intake: never Alcohol use details: Alcohol use noted 10/29/2020 with etoh level of 24. Substance use: current Substance use type: marijuana Other substance usage details: has not had alcohol in 16 years/ was never a heavy drinker per Last use: 12/08/24 Lack of Transportation: No Lack of Food: Never True Current Housing: I Have Housing Concerned About Future Housing: No Difficulty Paying Gas/Electric Bills: No Difficulty Paying for Meds: No Currently Unemployed: No Education: High School Diploma/GED Difficulty w/ Childcare or Family Care: No Living arrangements: with family Occupation/Education: other Gender identity (if verbalized by the patient): Male Sexual Orientation (if Verbalized by the Patient): Straight or Heterosexual Spiritual care concerns: No Agree to blood products: Yes <Mary Foss APRN - Last Filed: 12/09/24 18:02> Exam Narrative: GENERAL: Ill appearing, cachectic, toxic, in mild distress. HEAD: Normocephalic, atraumatic. NECK: Supple. No adenopathy, no masses. RESPIRATORY: Airway patent, respirations mildly labored. Crackles to auscultation bilaterally, + wheezing. CARDIOVASCULAR: Regular rate and rhythm without murmurs, rubs, or gallops. Peripheral pulses 2+ and equal bilaterally. ABDOMINAL: Soft, mildly tender generalized, nondistended, no hepatosplenomegaly. Normoactive BS. MUSCULOSKELETAL: Moves all extremities. SKIN: Warm, dry, normal color. No rashes. NEURO: A&O X0 time of initial examination <Mary Foss, LIBRARY CLERK TALKING BOOKS - Last Filed: 12/09/24 18:02> Course ELECTRIC MILKERS INSTALLER/PA Physician Supervision This visit was performed by both a physician and an APC; I performed all aspects of the medical decision making component of this evaluation as documented. <Mahi Ledezma MD - Last Filed: 12/09/24 19:38> Vital Signs Vital signs: Vital Signs Temperature 97.9 F 12/09/24 13:56 Pulse Rate 70 12/09/24 13:56 Respiratory Rate 15 12/09/24 13:56 Blood Pressure 139/65 12/09/24 13:56 Pulse Oximetry 100 12/09/24 13:56 Oxygen Delivery Room Air 12/09/24 13:56 Temperature 98.9 F 12/09/24 18:54 Pulse Rate 81 12/09/24 18:54 Respiratory Rate 21 H 12/09/24 18:54 Blood Pressure 140/70 12/09/24 18:54 Pulse Oximetry 100 12/09/24 18:54 Oxygen Delivery Room Air 12/09/24 13:56 <Mary Foss, LIBRARY CLERK TALKING BOOKS - Last Filed: 12/09/24 18:02> Vital Signs Temperature 97.9 F 12/09/24 13:56 Pulse Rate 70 12/09/24 13:56 Respiratory Rate 15 12/09/24 13:56 Blood Pressure 139/65 12/09/24 13:56 Pulse Oximetry 100 12/09/24 13:56 Oxygen Delivery Room Air 12/09/24 13:56 Temperature 98.9 F 12/09/24 18:54 Pulse Rate 81 12/09/24 18:54 Respiratory Rate 21 H 12/09/24 18:54 Blood Pressure 140/70 12/09/24 18:54 Pulse Oximetry 100 12/09/24 18:54 Oxygen Delivery Room Air 12/09/24 13:56 <Mahi Ledezma MD - Last Filed: 12/09/24 19:38> Medical Decision Making MDM Narrative Medical decision making narrative: Patient is a 59-year-old male who presents to the ER because his family is concerned he is going to have a seizure. Upon examination patient declines to answer most questions. He does endorse back pain that started yesterday. Patient denies any abdominal pain. He reports he does not think he is going to have a seizure. Patient continues to grown throughout examination. According to his medical records he has a history of seizures and COPD. Labs Ordered: CBC, CMP, CRP, blood cultures, COVID/flu/RSV, UA, UDS, ethanol, CK, lipase, TSH, PTT, INR Imaging Ordered: CT head, chest x-ray Medications Ordered: DuoNeb, 1 L normal saline IV bolus, Benadryl IV, droperidol IV Results: Patient's CMP indicates a potassium of 2.7. His UDS was positive for marijuana. Patient's ethyl alcohol level was less than 10. Patient's head CT indicates .No acute intracranial abnormality. His chest x-ray indicates Early bilateral pneumonia Diagnosis: Pneumonia, concern for recent seizure, hypokalemia Consults: neurology (nonemergent) MDM: Results of imaging and lab work shared with patient and their family. No seizure-like activity in the ER. It was advised patient be admitted to the hospital for further evaluation and treatment. Patient and their family verbalized understanding and are in agreement with plan. He will be started on IV antibiotics to cover his pneumonia. Patient was given droperidol for his gastroparesis but he started experiencing dystonia shortly afterwards so he was given Benadryl IV. <Mary Foss, LIBRARY CLERK TALKING BOOKS - Last Filed: 12/09/24 18:02> Differential Diagnosis Differential Diagnosis: Seizure, pneumonia, marijuana abuse, sepsis <Mary Foss LIBRARY CLERK TALKING BOOKS - Last Filed: 12/09/24 18:02> Vital Signs Vital Signs: Vital Signs Temperature 97.9 F 12/09/24 13:56 Pulse Rate 70 12/09/24 13:56 Respiratory Rate 15 12/09/24 13:56 Blood Pressure 139/65 12/09/24 13:56 Pulse Oximetry 100 12/09/24 13:56 Oxygen Delivery Room Air 12/09/24 13:56 Temperature 98.9 F 12/09/24 18:54 Pulse Rate 81 12/09/24 18:54 Respiratory Rate 21 H 12/09/24 18:54 Blood Pressure 140/70 12/09/24 18:54 Pulse Oximetry 100 12/09/24 18:54 Oxygen Delivery Room Air 12/09/24 13:56 <Mary Foss, LIBRARY CLERK TALKING BOOKS - Last Filed: 12/09/24 18:02> Vital Signs Temperature 97.9 F 12/09/24 13:56 Pulse Rate 70 12/09/24 13:56 Respiratory Rate 15 12/09/24 13:56 Blood Pressure 139/65 12/09/24 13:56 Pulse Oximetry 100 12/09/24 13:56 Oxygen Delivery Room Air 12/09/24 13:56 Temperature 98.9 F 12/09/24 18:54 Pulse Rate 81 12/09/24 18:54 Respiratory Rate 21 H 12/09/24 18:54 Blood Pressure 140/70 12/09/24 18:54 Pulse Oximetry 100 12/09/24 18:54 Oxygen Delivery Room Air 12/09/24 13:56 <Mahi Ledezma MD - Last Filed: 12/09/24 19:38> Lab Data Lab results reviewed: Yes I reviewed the patient's lab results. <Mary Foss APRN - Last Filed: 12/09/24 18:02> Result diagrams: 12/09/24 14:55 12/09/24 14:55 <Mary Foss APRN - Last Filed: 12/09/24 18:02> Labs: Lab Results 12/09/24 12/09/24 12/09/24 Range/Units 14:55 15:01 15:02 WBC 7.7 (4.5-10.0) K/mm3 RBC 4.25 L (4.6-6.20) M/mm3 Hgb 12.6 L (14.0-18.0) g/dL Hct 36.7 L (42.0-52.0) % MCV 86.4 (80-100) fl MCH 29.6 (26-34) pg MCHC 34.3 (32-36) g/dl RDW 16.0 H (11.5-14.5) % Plt Count 138 L D (150-375) k/mm3 MPV 10.8 H (7.4-10.4) fl Immature Gran % (Auto) 0.4 (0-0.5) % Neut % (Auto) 92.3 H (45.5-73.1) % Lymph % (Auto) 4.2 L (18.3-44.2) % [place] % (Auto) 3.0 (2.6-8.5) % Eos % (Auto) 0.0 (0-4.4) % Baso % (Auto) 0.1 L (0.2-1.2) % Lymph # (Auto) 0.32 L (0.9-3.2) K/mm3 [place] # (Auto) 0.2 (0.1-0.6) K/mm3 Eos # (Auto) 0.0 (0-0.3) K/mm3 Baso # (Auto) 0.0 (0.0-0.1) K/mm3 Abs Immat Gran (auto) 0.03 (0.00-0.031) K/mm3 Absolute Neuts (auto) 7.1 H (1.3-6.7) K/mm3 Absolute Nucleated RBC 0.000 (0.0-0.012) K/mm3 Nucleated RBC % 0.0 (0.0-0.2) % % Immature Plt Fraction 4.2 (0.9-11.2) % PT 16.3 H (11.1-14.7) Seconds INR 1.3 APTT 31.3 (22.3-36.8) Seconds Sodium 143 (137-145) mmol/L Potassium 2.7 L* (3.4-5.0) mmol/L Chloride 109 H (98-107) mmol/L Carbon Dioxide 18 L (22-30) mmol/L Anion Gap 16 H (4-12) mmol/L BUN 11 D (9-20) mg/dL Creatinine 0.86 (0.7-1.3) mg/dL Estim Creat Clear Calc 51 ml/min Estimated GFR > 60 (59 - ) Glucose 128 H (65-110) mg/dL POC Capillary Glucose 131 H (65-105) mg/dl Lactic Acid 2.6 H (0.7-2.0) mmol/L Calcium 9.8 (8.4-10.2) mg/dL Total Bilirubin 1.5 H (0.2-1.3) mg/dL AST 37 (17-59) U/L ALT 30 (6-50) U/L Alkaline Phosphatase 279 H (38-126) U/L Total Creatine Kinase 86 (55-170) U/L Total Protein 9.5 H (6.3-8.2) g/dL Albumin 4.4 (3.5-5.1) g/dL Lipase 54 (23-300) U/L TSH 0.880 (0.465-4.680) uIU/mL Urine Color Yellow (Yellow) Urine Appearance Turbid H (Clear) Urine pH 8.0 (5.0-9.0) Ur Specific [place] 1.016 (1.001-1.035) Urine Protein Trace (Negative) mg/dL Urine Glucose (UA) Negative (Negative) mg/dL Urine Ketones Trace H (Negative) mg/dL Ur Blood (Man) Negative (Negative) Urine Nitrate Negative (Negative) Urine Bilirubin Negative (Negative) Urine Urobilinogen 1.0 (<2.0) mg/dL Leukocyte Esterase Rfl Negative (Negative) MARILIA/UL Urine RBC 0-2 (0-2) /hpf Urine WBC 0-5 (0-3) /hpf Ur Squamous Epith Cells None seen (Few) /hpf Urine Bacteria None seen /hpf Urine Casts 0-2 Urine Opiates Screen Negative (Negative) Urine Methadone Screen Negative (Negative) Ur Barbiturates Screen Negative (Negative) Ur Phencyclidine Scrn Negative (Negative) Ur Amphetamine Screen Negative (Negative) U Benzodiazepines Scrn Negative (Negative) Urine Cocaine Screen Negative (Negative) U Cannabinoids Screen Positive A (Negative) Ethyl Alcohol < 10 (<10) mg/dL Influenza A (RT-PCR) Negative (Negative) Influenza B (RT-PCR) Negative (Negative) RSV (RT-PCR) Negative (Negative) SARS-CoV-2 RNA (RT-PCR) Negative (Negative) <Mary Foss, LIBRARY CLERK TALKING BOOKS - Last Filed: 12/09/24 18:02> Lab Results 12/09/24 12/09/24 12/09/24 Range/Units 14:55 15:01 15:02 WBC 7.7 (4.5-10.0) K/mm3 RBC 4.25 L (4.6-6.20) M/mm3 Hgb 12.6 L (14.0-18.0) g/dL Hct 36.7 L (42.0-52.0) % MCV 86.4 (80-100) fl MCH 29.6 (26-34) pg MCHC 34.3 (32-36) g/dl RDW 16.0 H (11.5-14.5) % Plt Count 138 L D (150-375) k/mm3 MPV 10.8 H (7.4-10.4) fl Immature Gran % (Auto) 0.4 (0-0.5) % Neut % (Auto) 92.3 H (45.5-73.1) % Lymph % (Auto) 4.2 L (18.3-44.2) % [place] % (Auto) 3.0 (2.6-8.5) % Eos % (Auto) 0.0 (0-4.4) % Baso % (Auto) 0.1 L (0.2-1.2) % Lymph # (Auto) 0.32 L (0.9-3.2) K/mm3 [place] # (Auto) 0.2 (0.1-0.6) K/mm3 Eos # (Auto) 0.0 (0-0.3) K/mm3 Baso # (Auto) 0.0 (0.0-0.1) K/mm3 Abs Immat Gran (auto) 0.03 (0.00-0.031) K/mm3 Absolute Neuts (auto) 7.1 H (1.3-6.7) K/mm3 Absolute Nucleated RBC 0.000 (0.0-0.012) K/mm3 Nucleated RBC % 0.0 (0.0-0.2) % % Immature Plt Fraction 4.2 (0.9-11.2) % PT 16.3 H (11.1-14.7) Seconds INR 1.3 APTT 31.3 (22.3-36.8) Seconds Sodium 143 (137-145) mmol/L Potassium 2.7 L* (3.4-5.0) mmol/L Chloride 109 H (98-107) mmol/L Carbon Dioxide 18 L (22-30) mmol/L Anion Gap 16 H (4-12) mmol/L BUN 11 D (9-20) mg/dL Creatinine 0.86 (0.7-1.3) mg/dL Estim Creat Clear Calc 51 ml/min Estimated GFR > 60 (59 - ) Glucose 128 H (65-110) mg/dL POC Capillary Glucose 131 H (65-105) mg/dl Lactic Acid 2.6 H (0.7-2.0) mmol/L Calcium 9.8 (8.4-10.2) mg/dL Total Bilirubin 1.5 H (0.2-1.3) mg/dL AST 37 (17-59) U/L ALT 30 (6-50) U/L Alkaline Phosphatase 279 H (38-126) U/L Total Creatine Kinase 86 (55-170) U/L Total Protein 9.5 H (6.3-8.2) g/dL Albumin 4.4 (3.5-5.1) g/dL Lipase 54 (23-300) U/L TSH 0.880 (0.465-4.680) uIU/mL Urine Color Yellow (Yellow) Urine Appearance Turbid H (Clear) Urine pH 8.0 (5.0-9.0) Ur Specific [place] 1.016 (1.001-1.035) Urine Protein Trace (Negative) mg/dL Urine Glucose (UA) Negative (Negative) mg/dL Urine Ketones Trace H (Negative) mg/dL Ur Blood (Man) Negative (Negative) Urine Nitrate Negative (Negative) Urine Bilirubin Negative (Negative) Urine Urobilinogen 1.0 (<2.0) mg/dL Leukocyte Esterase Rfl Negative (Negative) MARILIA/UL Urine RBC 0-2 (0-2) /hpf Urine WBC 0-5 (0-3) /hpf Ur Squamous Epith Cells None seen (Few) /hpf Urine Bacteria None seen /hpf Urine Casts 0-2 Urine Opiates Screen Negative (Negative) Urine Methadone Screen Negative (Negative) Ur Barbiturates Screen Negative (Negative) Ur Phencyclidine Scrn Negative (Negative) Ur Amphetamine Screen Negative (Negative) U Benzodiazepines Scrn Negative (Negative) Urine Cocaine Screen Negative (Negative) U Cannabinoids Screen Positive A (Negative) Ethyl Alcohol < 10 (<10) mg/dL Influenza A (RT-PCR) Negative (Negative) Influenza B (RT-PCR) Negative (Negative) RSV (RT-PCR) Negative (Negative) SARS-CoV-2 RNA (RT-PCR) Negative (Negative) <Mahi Ledezma MD - Last Filed: 12/09/24 19:38> Imaging Data Attestation: I personally reviewed and interpreted this imaging study as follows: <Mary Foss APRN - Last Filed: 12/09/24 18:02> Radiologist's impression: Impressions Chest X-Ray 12/09/24 15:00 Impression: Early bilateral pneumonia Head CT 12/09/24 16:17 Impression: 1.No acute intracranial abnormality. <Mary Foss APRN - Last Filed: 12/09/24 18:02> Discharge Plan Discharge Clinical Impression: Breakthrough seizure, Altered mental status, Dehydration, Pneumonia, Hypokalemia <Mary Foss APRN - Last Filed: 12/09/24 18:02> Patient Disposition: Still a Patient <Mary Foss APRN - Last Filed: 12/09/24 18:02> Condition: Stable <Mary Foss APRN - Last Filed: 12/09/24 18:02>
--- OUTSIDE RECORDS SUMMARY | 2024-12-09 15:07 | XMS_ITS | Encounter Summary ---
Author Organization [facility] Address [address] [place] [address] Phone Care Team Providers Care Primary School Teacher Librarian Name Role Phone Cedrick Barriga MD Primary Care Provider [phone] Unknown, Notinfile Primary Care Provider Unavail able Cedrick Barriga MD Primary Care Provider [phone] Cedrick Barriga MD Unavailable [phone] Dequan Frye MD Unavailable [phone] Lian Melchor MD Primary Care Provider Encounter Details Date Type Department Care Team (Late st Contact Info) Description 04/01/2022 Documentation [facility] Medicine Gastroenterology [address] [facility] Advanced Medicine 12th [place] [address] [place] [id number] Zoya Masterson LPN Social History Tobacco Use Types Packs/Day Years Used Date Smoking Tobacco: Every Day Cigarettes 0.3 42.8 Started: 1984 Smokeless Tobacco: Never Comments:trying to [...] on file Legal Sex Male 2:43 AM ENROLLED NURSE Gender Identity Not on file Sexual Orientation [...] COVID: Suspected 03/01/2023 03/01/2023 03/01/2023 10:12 PM ENROLLED NURSE RSV, droplet 03/01/2023 03/01/2023 03/08/2023 3:05 AM ENROLLED NURSE documented as of this encounter Care Teams Primary School Teacher Librarian Relationship Specialty Start Date End Date Cedrick Barriga MD [address] [place] [address] PCP - General 12/24/20 07/19/22 Unknown, Notinfile PCP - General 07/20/22 07/20/22 Cedrick Barriga MD [address] [place] [address] PCP - General Family Medicine 07/21/22 11/12/22 Lian Melchor MD [address] [place] [address] PCP - General Gastroenterology 11/13/22 Cedrick Barriga MD [address] [place] [address] 07/20/22 08/11/22 Dequan Frye MD Referring Physician Transplant Hepatology 08/19/18 documented as of this encounter
--- OUTSIDE RECORDS SUMMARY | 2024-12-09 15:07 | XMS_ITS | Encounter Summary ---
Author Organization [facility] Healthcare Address [address] [place] [address] Care Team Providers Care Wood Heel Fitter Machine Name Role Phone Jazmin Shankar MD Primary Care Provider [phone] Cedrick Barriga MD Primary Care Provider [phone] Unknown, Notinfile Primary Care Provider Unavail able Cedrick Barriga MD Primary Care Provider [phone] Cedrick Barriga MD Unavailable [phone] Olya Corcoran RN Unavailable [phone] Dequan Frye MD Unavailable [phone] Lian Melchor MD Primary Care Provider Encounter Details Date Type Department Care Team (Late st Contact Info) Description 06/24/2020 Telephone [facility] [address] [place] [address] Rj Johnson, RT Social History [...] on file Legal Sex Male 2:43 AM ASSISTANCE REPRESENTATIVE Gender Identity Not on file Sexual Orientation [...] steps to maintain regimen ACO Care Management Deepika Dos SantosStella Note: Problem: Medication management Interventions: - Assess [...] COVID: Suspected 03/01/2023 03/01/2023 03/01/2023 10:12 PM ASSISTANCE REPRESENTATIVE RSV, droplet 03/01/2023 03/01/2023 03/08/2023 3:05 AM ASSISTANCE REPRESENTATIVE documented as of this encounter Care Teams Wood Heel Fitter Machine Relationship Specialty Start Date End Date Jazmin Shankar MD PCP - General Family Medicine 08/09/18 12/23/20 Cedrick Barriga MD [address] [place] [address] PCP - General 12/24/20 07/19/22 Unknown, Notinfile PCP - General 07/20/22 07/20/22 Cedrick Barriga MD [address] [place] [address] PCP - General Family Medicine 07/21/22 11/12/22 Lian Melchor MD [address] [place] [address] PCP - General Gastroenterology 11/13/22 Cedrick Barriga MD [address] [place] [address] 07/20/22 08/11/22 Olya Corcoran RN Rubber Goods Repairer 08/10/1812/09 Dequan Frye MD Referring Physician Transplant Hepatology 08/19/18 documented as of this encounter
--- OUTSIDE RECORDS SUMMARY | 2024-12-09 15:08 | XMS_ITS | Encounter Summary ---
Author Organization [facility] Healthcare Address [address] [place] [address] Care Team Providers Care Director Of Email Marketing Name Role Phone Jazmin Shankar MD Primary Care Provider [phone] Cedrick Barriga MD Primary Care Provider [phone] Unknown, Notinfile Primary Care Provider Unavail able Cedrick Barriga MD Primary Care Provider [phone] Cedrick Barriga MD Unavailable [phone] Olya Corcoran RN Unavailable [phone] Dequan Frye MD Unavailable [phone] Melissa Schumacher RN Unavailable Lian Melchor MD Primary Care Provider Encounter Details Date Type Department Care Team (Late st Contact Info) Description 09/15/2019 Telephone [facility] ([facility]) [address] [place] [phone] Piotr Trujillo MD [address] [place], [place] [id number] Social History Tobacco Use Types Packs/Day Years Used Date Smoking Tobacco: Every Day Cigarettes 0.3 42.8 Started: 1984 Smokeless Tobacco: Never Comments:trying to quit-smok ing Alcohol Use Standard Drinks/Week Comments Not Currently 0 (1 standard drink = 0.6 oz pur e alcohol) denies Sex and Gender Information Value Date Recorded Sex Assigned at Not on file Legal Sex Male 2:43 AM ISSUER Gender Identity Not on file Sexual Orientation [...] COVID: Suspected 03/01/2023 03/01/2023 03/01/2023 10:12 PM ISSUER RSV, droplet 03/01/2023 03/01/2023 03/08/2023 3:05 AM ISSUER documented as of this encounter Care Teams Director Of Email Marketing Relationship Specialty Start Date End Date Jazmin Shankar MD PCP - General Family Medicine 08/09/18 12/23/20 Cedrick Barriga MD [address] [place] [address] PCP - General 12/24/20 07/19/22 Unknown, Notinfile PCP - General 07/20/22 07/20/22 Cedrick Barriga MD [address] [place] [address] PCP - General Family Medicine 07/21/22 11/12/22 Lian Melchor MD [address] [place] [address] PCP - General Gastroenterology 11/13/22 Cedrick Barriga MD [address] [place] [address] 07/20/22 08/11/22 Olya Corcoran RN Family Development Extension Specialist 08/10/1812/09 Dequan Frye MD Referring Physician Transplant Hepatology 08/19/18 Melissa Schumacher, ETELVINA [address] [address] Family Development Extension Specialist 01/29/20 documented as of this encounter
--- OUTSIDE RECORDS SUMMARY | 2024-12-09 15:08 | XMS_ITS | Data Portability ---
Author Organization [facility] Address [address] [place] [address] Assessment No assessment recorded. Plan of Treatment Reminders Order Date Submit Date Provider Last Modified By Organization Details Last Modified Time Details Appointments NEW PATIENT 30 2024 10:30A M Mayra Cole MD Not available Not available Not available Lab CMP, serum or plasma 2023 024 KRUNAL [facility], [address], [address], [place], [address], 09/22/2023 10:15:30 CBC 2023 024 K[facility]NAL [facility], [address], [address], [place], [address], 09/22/2023 10:15:31 Referral pain managemen t referral - all i have on this patient in the emr i have went back as far as i can 2024 025 KRUNAL [facility], [address], [address], [place], [address], 12/04/2024 04:09:[address] referral 2024 025 KRUNAL [facility], [facility] , [address], [place], [address], 12/04/2024 04:07:54 hematolog ist referral - Cirrhosis associate d with HBV. Chronic low plt count 2023 024 KRUNAL Pacheco MD, [address], [place], [address], 12/08/2023 09:12:50 gastroent erologist referral - Chronic liver disease/H CC/HBV. Was on xplant list at [facility] 2023 024 [facility], [address] [facility] [address] [facility], [place], [address], 06/13/2024 11:01:23 Procedures None recorded. Surgeries None recorded. Imaging None recorded. Medication Orders topiramat e 50 mg tablet 2024 025 [facility] [address] [place], [address], 08/15/2024 12:08:30 hydrocodo ne 5 mg-acetam inophen 325 mg tablet 2024 025 [facility] [address] [place], [address], 08/15/2024 12:08:32 tamsulosi n 0.4 mg capsule 2024 025 [facility] [address] [email or web address], [address], 08/15/2024 12:08:31 hydrocodo ne 5 mg-acetam inophen 325 mg tablet 2024 025 [facility] [address] [place], [address], 06/21/2024 13:38:07 ondansetr on 4 mg disintegr ating tablet 2024 025 [facility] [address] [email or web address], [address], 03/22/2024 17:45:12 hydrocodo ne 5 mg-acetam inophen 325 mg tablet 2024 025 [facility] [address] [email or web address], [address], 03/22/2024 17:10:44 Patient TargetsNo targets recorded. Patient Instructions Encounter Date Encounter Id Patient Instructions Last Modified By Organization Details Last Modified Time 09/21/2023 [id number] chronic obstructive pulmonary disease (COPD): care instructions Not available 09/21/2023 13:22:30 deciding about using medicines to quit smoking [email or web address] Not available 09/21/2023 13:22:31 Quitting Tobacco : Care Instructions [email or web address] Not available 09/21/2023 13:22:31 esophageal varices: care instructions [email or web address] Not available 09/21/2023 13:22:31 cirrhosis: care instructions Not available 09/21/2023 13:22:31 liver disease diet: care instructions [email or web address] Not available 09/21/2023 13:22:31 03/22/2024 [id number] deciding about using medicines to quit smoking [email or web address] Not available 03/22/2024 17:10:35 Quitting Tobacco : Care Instructions [email or web address] Not available 03/22/2024 17:10:35 hepatitis B: car e instructions [email or web address] Not available 03/22/2024 17:10:35 cirrhosis: care instructions [email or web address] Not available 03/22/2024 17:10:35 liver disease diet: care instructions Not available 03/22/2024 17:10:35 chronic obstructive pulmonary disease (COPD): care instructions [email or web address] Not available 03/22/2024 17:10:35 learning about copd and how to prevent lung infections [email or web address] Not available 03/22/2024 17:10:35 nausea and vomiting: care instructions [email or web address] Not available 03/22/2024 17:45:07 06/21/2024 [id number] deciding about using medicines to quit smoking [email or web address] Not available 06/21/2024 13:39:04 Quitting Tobacco : Care Instructions Not available 06/21/2024 13:39:04 chronic obstructive pulmonary disease (COPD): care instructions [email or web address] Not available 06/21/2024 13:39:04 learning about copd and how to prevent lung infections [email or web address] Not available 06/21/2024 13:39:04 Reason for Referral Screen Cleaner Referral for Cirrhosis of liver Chronic liver disease/HCC/HBV. Was on xplant list at [facility] Referring Physician: Lian Melchor, Internal Medicine, Encounter Date: 09/21/2023 Cirrhosis associated with HB V. Chronic low plt count Referring Physician: Lian Melchor Internal Medicine, Encounter Date: 10/12/2023 Neurologist Referral for Par esthesia Generalized numbness tingling Referring Physician: Lian Melchor Internal Medicine, Encounter Date: 03/22/2024 Pain Management Referral for Chronic back pain all i have on this patient in the emr i have went back as far as i can Referring Physician: Lian Melchor, Internal Medicine, Encounter Date: 08/15/2024 Results Created Date Observation Date Name Description Value Unit Range Abnormal Flag Note LastModifiedBy Organization Detail LastModifiedTime 09/21/19 24 09/22/2023 COMP. METAB OLIC PANEL (14) glucose 97 mg/dL 70-99 Not Available [facility] ([facility]) [address] [place], [address], 09/22/2023 10:15:30 09/21/19 24 09/22/2023 COMP. METAB OLIC PANEL (14) BUN 16 mg/dL 8-27 Not Available [facility] ([facility]) [address] [place], [address], 09/22/2023 10:15:30 09/21/19 24 09/22/2023 COMP. METAB OLIC PANEL (14) creatinine 0.88 mg/dL 0.76-1 .27 Not Available [facility] ([facility]) [address] [place], [address], 09/22/2023 10:15:30 09/21/19 24 09/22/2023 COMP. METAB OLIC PANEL (14) eGFR 98 mL/mi n/1.7 3 >59 Not Available [facility] ([facility]) [address] [place], [address], 09/22/2023 10:15:30 09/21/19 24 09/22/2023 COMP. METAB OLIC PANEL (14) BUN/creatini ne ratio 18 10-24 Not Available [facility] ([facility]) [address] [facility], [place], [address], 09/22/2023 10:15:30 09/21/19 24 09/22/2023 COMP. METAB OLIC PANEL (14) sodium 144 mmol/ L 134-14 4 Not Available [facility] ([facility]) [address] [facility], [place], [address], 09/22/2023 10:15:30 09/21/19 24 09/22/2023 COMP. METAB OLIC PANEL (14) potassium 5.2 mmol/ L 3.5-5. 2 Not Available [facility] ([facility]) [address] [facility], [place], [address], 09/22/2023 10:15:30 09/21/19 24 09/22/2023 COMP. METAB OLIC PANEL (14) chloride 106 mmol/ L 96-106 Not Available [facility] ([facility]) [address] [facility], [place], [address], 09/22/2023 10:15:30 09/21/19 24 09/22/2023 COMP. METAB OLIC PANEL (14) carbon dioxide, total 23 mmol/ L 20-29 Not Available [facility] ([facility]) [address] [facility], [place], [address], 09/22/2023 10:15:30 09/21/19 24 09/22/2023 COMP. METAB OLIC PANEL (14) calcium 9.8 mg/dL 8.6-10 .2 Not Available [facility] ([facility]) [address] [facility], [place], [address], 09/22/2023 10:15:30 09/21/19 24 09/22/2023 COMP. METAB OLIC PANEL (14) protein, total 7.7 g/dL 6.0-8. 5 Not Available [facility] ([facility]) [address] [place], [address], 09/22/2023 10:15:30 09/21/19 24 09/22/2023 COMP. METAB OLIC PANEL (14) albumin 4.6 g/dL 3.8-4. 9 Not Available [facility] ([facility]) [address] [place], [address], 09/22/2023 10:15:30 09/21/19 24 09/22/2023 COMP. METAB OLIC PANEL (14) globulin, total 3.1 g/dL 1.5-4. 5 Not Available [facility] ([facility]) [address] [place], [address], 09/22/2023 10:15:30 09/21/19 24 09/22/2023 COMP. METAB OLIC PANEL (14) bilirubin, total 0.8 mg/dL 0.0-1. 2 Not Available [facility] ([facility]) [address] [place], [address], 09/22/2023 10:15:30 09/21/19 24 09/22/2023 COMP. METAB OLIC PANEL (14) alkaline phosphatase 107 IU/L 44-121 Not Available [facility]) [address] [place], [address], 09/22/2023 10:15:30 09/21/19 24 09/22/2023 COMP. METAB OLIC PANEL (14) AST (SGOT) 33 IU/L 0-40 Not Available [facility] ([facility]) [address] [place], [address], 09/22/2023 10:15:30 09/21/19 24 09/22/2023 COMP. METAB OLIC PANEL (14) ALT (SGPT) 25 IU/L 0-44 Not Available [facility] ([facility]) [address] [facility], [place], [address], 09/22/2023 10:15:30 09/21/1909/22/2023 CBC, PLATE LET, NO DIFFE RENTI AL WBC 4.4 x10e3 /uL 3.4-10 .8 Not Available [facility] ([facility]) [address] [facility], [place], [address], 09/22/2023 10:15:31 09/21/1909/22/2023 CBC, PLATE LET, NO DIFFE RENTI AL RBC 4.30 x10e6 /uL 4.14-5 .80 Not Available [facility] ([facility]) [address] [facility], [place], [address], 09/22/2023 10:15:31 09/21/1909/22/2023 CBC, PLATE LET, NO DIFFE RENTI AL hemoglobin 13.8 g/dL 13.0-1 7.7 Not Available [facility] ([facility]) [address] [facility], [place], [address], 09/22/2023 10:15:31 09/21/1909/22/2023 CBC, PLATE LET, NO DIFFE RENTI AL hematocrit 39.1 % 37.5-5 1.0 Not Available [facility] ([facility]) [address] [facility], [place], [address], 09/22/2023 10:15:31 09/21/1909/22/2023 CBC, PLATE LET, NO DIFFE RENTI AL MCV 91 fL 79-97 Not Available [facility] ([facility]) [address] [facility], [place], [address], 09/22/2023 10:15:31 09/21/1909/22/2023 CBC, PLATE LET, NO DIFFE RENTI AL MCH 32.1 pg 26.6-3 3.0 Not Available [facility] ([facility]) [address] [facility], [place], [address], 09/22/2023 10:15:31 09/21/19 24 09/22/2023 CBC, PLATE LET, NO DIFFE RENTI AL MCHC 35.3 g/dL 31.5-3 5.7 Not Available [facility] ([facility]) [address] [facility], [place], [address], 09/22/2023 10:15:31 09/21/19 24 09/22/2023 CBC, PLATE LET, NO DIFFE RENTI AL RDW 14.4 % 11.6-1 5.4 Not Available [facility] ([facility]) [address] [facility], [place], [address], 09/22/2023 10:15:31 09/21/19 24 09/22/2023 CBC, PLATE LET, NO DIFFE RENTI AL platelets 82 x10e3 /uL 150-45 0 alert low Plate let count verif ied by exami natio n of perip heral blood smear . Not Available [facility] ([facility]) [address] [facility], [place], [address], 09/22/2023 10:15:31 09/21/19 24 09/22/2023 CBC, PLATE LET, NO DIFFE RENTI AL hematology comments: NOTE: Verif ied by micro scopi c exami natio n. Not Available [facility] ([facility]) [address] [place], [address], 09/22/2023 10:15:31 09/21/19 24 09/26/2023 COMPL IANCE [...] and delta -8-te trahy droca nnabi nol. [place] codon e 708 ng/mg creat [place] morph one 50 ng/mg creat Dihyd rocod eine 66 ng/mg creat Norhy droco done 1809 ng/mg creat Sourc es of hydro codon e inclu de sched uled presc ripti on medic ation s. [place] morph one, dihyd rocod eine and norhy droco done are expec kait metab olite s of hydro codon e. [place] morph one and dihyd rocod eine are [...] ===== ===== ===== === Not Available [facility] ([facility]) [address] [facility], [place], [address], 09/26/2023 15:08:12 09/21/19 24 09/26/2023 COMPL IANCE DRUG EVELYN SIS, UR pdf . Not Available [facility] ([facility]) [address] [place], [address], 09/26/2023 15:08:12 04/10/19 25 04/10/2024 Lacta te [...] Rapid immun oassa y reagent lot number [id number] normal Not Available Not Available 04/01 21:51:04 [...] seen Not Available Not Available 04/11/2024 21:51:03 04/10/1904/10/2024 Thyro tropi n [Unit s/vol ume] in [...] Available 04/11/2024 21:51:03 04/10/19 25 04/10/2024 Compr [employer] amandeep metab olic 1999 panel - Serum [...] Available 04/11/2024 21:51:03 04/10/19 25 04/10/2024 Compr [employer] amandeep Nepris olic 1999 panel - Serum or Plasm a glucose [mass/volume ] in serum or plasma 120 mg/dL low: 70mg/d Lhigh: 99mg/d L high Not Available Not Available 04/11/2024 21:51:03 04/10/19 25 04/10/2024 Compr [employer] amandeep Nepris olic 1999 panel - Serum or Plasm a urea nitrogen [mass or moles/volume ] in serum or plasma 16 mg/dL low: 8mg/dL high: 19mg/d L normal Not Available Not Available 04/11/2024 21:51:03 04/10/19 25 04/10/2024 Compr [employer] amandeep Nepris olic 1999 panel - Serum or Plasm a creatinine [mass/volume ] in serum or plasma 0.89 mg/dL low: 0.66mg /dLhig h: 1.25mg /dL normal Not Available Not Available 04/11/2024 21:51:03 04/10/19 25 04/10/2024 Compr [employer] amandeep metab olic 2000 panel - Serum or Plasm a glomerular filtration rate/1.73 sq M.predicted [volume rate/area] in serum, plasma or blood >60 normal Not Available Not Available 04/01 21:51:03 04/10/19 25 04/10/2024 [facility] panel - Serum or Plasm a alkaline phosphatase [enzymatic activity/vol ume] in serum or plasma 123 U/L low: 38U/Lh igh: 126U/L normal Not Available Not Available 04/11/2024 21:51:03 04/10/19 25 04/10/2024 [facility] 1999 panel - Serum or Plasm a alanine aminotransfe rase [enzymatic activity/vol ume] in serum or plasma 29 U/L low: 0U/Lhi gh: 50U/L normal Not Available Not Available 04/11/2024 21:51:03 04/10/19 25 04/10/2024 [facility] 1999 panel - Serum or Plasm a aspartate aminotransfe rase [enzymatic activity/vol ume] in serum or plasma 33 U/L low: 15U/Lh igh: 46U/L normal Not Available Not Available 04/11/2024 21:51:03 04/10/19 25 04/10/2024 [facility] 1999 panel - Serum or Plasm a bilirubin.to paul [mass/volume ] in serum or plasma 1.1 mg/dL low: 0.2mg/ dLhigh : 1.3mg/ dL normal Not Available Not Available 04/11/2024 21:51:03 04/10/19 25 04/10/2024 [facility] 1999 panel - Serum or Plasm a calcium [mass/volume ] in serum or plasma 9.8 mg/dL low: 8.4mg/ dLhigh : 10.2mg /dL normal Not Available Not Available 04/11/2024 21:51:03 04/10/19 25 04/10/2024 [facility] [address] panel - Serum or Plasm a protein [...] large [presence] in blood by light microscopy Labora tory data interp retati on normal Not Available Not Available 23:49:18 04/11/19 25 04/11/2024 Lacta te [Mole s/vol ume] in Serum or Plasm a lactate [moles/volum e] in serum or plasma 1.1 mmol/ L low: 0.7mmo l/Lhig h: 1.9mmo l/L normal Not Available Not Available 04/11/2024 21:51:04 04/11/19 25 04/11/2024 Compr ehens amandeep metab olic 2000 panel - Serum or Plasm a sodium [...] 04/11/19 25 04/11/2024 Compr ehens amandeep metab [place] [address] panel - Serum or Plasm a creatinine [mass/volume ] in serum or plasma 0.78 mg/dL low: 0.66mg /dLhig h: 1.25mg /dL normal Not Available Not Available 04/11/2024 21:51:03 04/11/19 25 04/11/2024 [facility] [place] [address] panel - Serum or Plasm a glomerular filtration rate/1.73 sq M.predicted [volume rate/area] in serum, plasma or blood >60 normal Not Available Not Available 04/01 21:51:03 04/11/19 25 04/11/2024 [facility] 1999 panel - Serum or Plasm a alkaline phosphatase [enzymatic activity/vol ume] in serum or plasma 88 U/L low: 38U/Lh igh: 126U/L normal Not Available Not Available 04/11/2024 21:51:03 04/11/19 25 04/11/2024 [facility] [place] [address] panel - Serum or Plasm a alanine aminotransfe rase [enzymatic activity/vol ume] in serum or plasma 20 U/L low: 0U/Lhi gh: 50U/L normal Not Available Not Available 04/11/2024 21:51:03 04/11/19 25 04/11/2024 [facility] [place] [address] panel - Serum or Plasm a aspartate aminotransfe rase [enzymatic activity/vol ume] in serum or plasma 25 U/L low: 15U/Lh igh: 46U/L normal Not Available Not Available 04/11/2024 21:51:03 04/11/19 25 04/11/2024 [facility] [place] [address] panel - Serum or Plasm a bilirubin.to paul [mass/volume ] in serum or plasma 0.4 mg/dL low: 0.2mg/ dLhigh : 1.3mg/ dL normal Not Available Not Available 04/11/2024 21:51:03 04/11/19 25 04/11/2024 [facility] [place] [address] panel - Serum or Plasm a calcium [mass/volume ] in serum or plasma 9.1 mg/dL low: 8.4mg/ dLhigh : 10.2mg /dL normal Not Available Not Available 04/11/2024 21:51:03 04/11/19 25 04/11/2024 Compr [employer] amandeep Nepris olic 1999 panel - Serum or Plasm [...] Available 04/11/2024 21:51:03 04/11/19 25 04/11/2024 Compr [employer] amandeep Nepris olic 1999 panel - Serum or Plasm [...] normal Not Available Not Available 04/11/2024 21:51:03 02/22/20 24 02/22/2024 XR, chest , 2 view No observ ation record ed. [address], [place], [address], 03/16/2024 09:01:51 04/10/19 25 04/10/2024 XR, chest , 2 view No observ ation record ed. [email or web address] [facility] [address] [facility], [place], [address], 04/18/2024 12:28:34 04/11/19 25 04/11/2024 US, abdom en No observ ation record ed. [email or web address] [facility] [address] [place], [address], 04/18/2024 12:29:06 Result Notes None recorded. 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 Chloé Pang [place] null, [place] - [facility] 8 10:24:31 Cirrhosis of liver 22122609 Active 2017 Chloé Pang [place] [facility] 8 10:24:48 Chronic obstructive pulmonary disease 05219235 Active 2017 CHANCE Ni, [place] - [facility] 8 10:24:53 Pulmonary emphysema 88281512 Active 2017 Chloé P[place] [facility] 8 10:25:05 Acid reflux 966721025 Active 2017 Chloé P[place] [facility] 8 10:25:36 Seizure 87749827 Active 2019 Rica Jha [place], [place] - [facility] 0 10:07:23 Allergic disorder 941886039 Active 2021 Harsha Delgadillo PA-C Attn: Mary carias,[address] [place], [address], [place] - [facility] 2 14:48:59 Acute sinusitis 76536220 Active 2021 Harsha Delgadillo PA-C Attn: Mary carias,[address] [place], [address], [place] [facility] 2 14:52:41 Screening for malignant neoplasm of prostate Active 2021 Harsha Delgadillo PA-C Attn: Mary carias,[address] [place], [address], [place] [facility] 2 14:57:01 Hyperlipide sergey screening Active 2021 Harsha Delgadillo PA-C Attn: Mary carias,[address] [facility], [place], [address], [place] - [facility] 2 14:57:58 At increased risk of nutritional deficit 573443561 Active 2021 Harsha Delgadillo PA-C Attn: Mary carias,[address] [facility], [place], [address], [place] [facility] 2 14:59:25 Underweight 834142646 Active 2021 Harsha Delgadillo PA-C Attn: Mary carias,[address] [facility], [place], [address], [place] [facility] 2 15:01:02 Esophageal varices 83368641 Active 2021 Harsha Delgadillo PA-C Attn: Jaceyedilson carias,[address] [facility], [place], [address], [place] [facility] 2 21:24:38 Chronic back pain 759824601 Active 2021 Lian Melchor MD Attn: Jaceyedilson carias,[address] [facility], [place], [address], [place] [facility] 2 17:37:21 Nausea 832277018 Active 2022 Lian Melchor MD Attn: Mary aretha,[address] [facility], [place], [address], [place] [facility] 3 15:47:03 Chest wall pain 049763902 Active 2022 Lian Melchor MD Attn: Jaceyedilson carias,[address] [place], [address], [place] [facility] 3 15:50:48 Hepatic encephalopa thy 22919200 Active 2022 Lian Melchor MD Attn: Mary carias,[address] [place], [address], [place] [facility] 3 15:53:26 Hiatal hernia 36686844 Active 2022 Lian Melchor MD Attn: Mary carias,[address] [facility], [place], [address], [place] [facility] 3 13:16:44 Active immunizatio n Active 2022 Lian Melchor MD Attn: Jaceyedilson carias,[address] [facility], [place], [address], [place] [facility] 3 13:41:15 Administrat ion of diphtheria and tetanus vaccine Active 2022 Lian Melchor MD Attn: Jaceyedilson carias,[address] [facility], [place], [address], [place] [facility] 3 13:42:22 Medication monitoring Active 2022 Lian Melchor MD Attn: Jaceyedilson carias,[address] [facility], [place], [address], [place] [facility] 3 19:46:29 Screening for malignant neoplasm of colon Active 2022 Lian Melchor MD Attn: Jaceyedilson carias,[address] [facility], [place], [address], [place] [facility] 3 11:19:12 Bronchitis 63509607 Active 2022 Lian Melchor MD Attn: Mary aretha,[address] [facility], [place], [address], [place] [facility] 3 16:54:12 Cough 70453819 Active 2022 Lian Melchor MD Attn: Mary aretha,[address] [facility], [place], [address], [place] [facility] 3 03:45:13 Tobacco dependence syndrome 74318862 Active 2022 Lian Melchor MD Attn: Mary carias,[address] [facility], [place], [address], [place] [facility] 3 03:46:31 History of thrombocyto penia 8819802254323 8 Active 2023 Lian Melchor MD Attn: Mary carias,[address] [facility], [place], [address], [place] [facility] 4 11:26:13 Paresthesia 19326732 Active 2024 Lian Melchor MD Attn: Mary carias,[address] [facility], [place], [address], [place] - [facility] 5 17:03:25 Common bile duct calculus 169310425 Active 2024 Lian Melchor MD Attn: Mary carias,[address] [facility], [place], [address], [facility] - [facility] 5 13:39:19 Chronic daily headache 8036874187060 02 Active 2024 Lian Melchor MD Attn: Mary carias,[address] [facility], [place], [address], [facility] - [facility] 5 11:48:46 Notes:Bulging disc 3 of them and cracked vertebre Some problems listed in Documents: #[id number], #[id number], #[id number], #[id number], #[id number], #[id number], #[id number] could not be added to this patient's chart. Please review these documents and add these problems to the patient's chart manually as needed. Problem Notes None recorded. Procedures Surgical History Date Name Laterality Status Provider Name and Address Organization Details Recorded Time 03/01/19 10 colonoscopy completed Iraj Serna MA [facility] 05/14/2021 11:41:04 excision of colon completed Chloé Pang MA [facility] 12/30/2017 10:28:49 endoscopy completed Chloé Pang MA [facility] 12/30/2017 10:29:31 Knee Surgery completed CHANCE Warner [facility] 05/14/2021 11:38:27 Cholecystectomy completed Iraj Serna MA [facility] 05/14/2021 11:38:51 Imaging Results None recorded. Procedure Notes None recorded. Medical Equipment None Reported. Allergies Allergen ID Allergen Name Allergen Category Reaction Reaction Severity Criticality Documentation Date Start Date Code Code System Note Provider Name and Address Organization Details Recorded Time 952797 fentanyl medicatio n Not available Not available Not available 12/30/2017 4337 RxNorm CHANCE Ni, [place] - [facility] 8 10:21:35 900365 Cipro medicatio n Not available Not available Not available 12/30/2017 74575 3 RxNorm CHANCE Ni, [place] - [facility] 8 10:21:41 693988 bupropion Not available other Not available Not available 10/03/2019 34660 RxNorm Jazmin Shankar MD Attn: Mary carias,[address] [facility], [place], [address] [place] [address] - [facility] 0 10:40:12 544798 wasp venoms environme nt Not available Not available Not available 05/14/2021 65817 RxNorm Iraj Serna [place] null, [place] - [facility] 2 11:36:33 779537 hornet venom environme nt other severe Not available 07/10/2021 Chloé Duenas MA null, [place] - [facility] 2 14:26:01 Medications Name Sig Start Date Stop Date [...] Not Available Not Available Not Available dextrometho frieda enesin 10 mg-100 mg/5 mL oral syrup Take 10 mL 4 times a day by oral route. 09/20 completed Not Available Not Available Not Available omeprazole 40 mg capsule,del ayed release TAKE 1 CAPSULE BY MOUTH ONCE DAILY BEFORE A MEAL 08/15 completed Not Available Not Available Not Available Nicotrol 10 mg inhalation cartridge Inhale [...] Available Not Available tamsulosin 0.4 mg capsule TAKE 1 CAPSULE BY MOUTH ONCE DAILY active Not Available Not Available No t Available gabapentin 800 mg tablet TAKE 1 TABLET BY MOUTH 4 TIMES DAILY active Not [...] TAKE 2 TABLETS BY MOUTH TWICE DAILY 06/21 completed Not Available Not Available Not Available lorazepam 1 mg tablet TAKE 1 TABLET BY MOUTH EVERY 12 HOURS FOR 3 DOSES 09/21 completed Not Available Not Available Not Available ibuprofen 600 mg tablet TAKE 1 TABLET BY MOUTH THREE TIMES DAILY NEEDED FOR PAIN active Chr meenakshi dis Not Available Not Available Not Available levofloxaci n 750 mg tablet TAKE 1 TABLET BY MOUTH ONCE DAILY FOR 7 DAYS 09/21 completed Not Available Not Available Not Available albuterol sulfate HFA 90 mcg/actuati on aerosol inhaler INHALE 2 PUFFS BY MOUTH 4 TIMES DAILY NEEDED active Not Available Not Available No t Available ondansetron 4 mg disintegrat ing tablet DISSOLVE 1 TABLET IN MOUTH THREE TIMES DAILY NEEDED active Not Available Not Available No t Available cefdinir 300 mg capsule TAKE 1 CAPSULE BY MOUTH TWICE DAILY FOR 10 DAYS 09/20 completed Not Available Not Available Not Available fluticasone propionate 50 mcg/actuati on nasal spray,suspe nsion 07/10 completed Not Available Not Available Not Available amoxicillin 875 mg-potassiu m clavulanate 125 mg tablet TAKE 1 TABLET BY MOUTH TWICE DAILY FOR 3 DAYS active Not Available Not Available No t Available nicotine 7 mg/24 hr daily transdermal [...] completed Not Available Not Available Not Available topiramate 50 mg tablet TAKE 1 TABLET BY MOUTH TWICE DAILY active Not Available Not Available No t Available duloxetine 30 mg capsule,del ayed release [...] Available levetiracet am 1,000 mg tablet TAKE 1 TABLET BY MOUTH TWICE DAILY active Not Available [...] completed Not Available Not Available Not Available EpiPen 2-Joshua 0.3 mg/0.3 mL injection, auto-inject or Take 1 auto as needed by injection route. 2024 active Not Available Not Available Not Avai lable Pennsaid 20 mg/gram/act uation (2 %) topical [...] in Arterial blood by Pulse oximetry Systolic And Diastolic Provider Name and Address Organization Details Last Updated DateTime 5 173.99 cm 18.3 kg/m2 57470.4 1 g 64 /min 99 % 99 % 130/76 mm[Hg] Gricelda Delgadillo MA [facility] 5 16:32:43 Date Recorded Body height Body mass index (BMI) Body weight Heart rate Oxygen saturation Oxygen saturation in Arterial blood by Pulse oximetry Systolic And Diastolic Provider Name and Address Organization Details Last Updated DateTime 5 173.99 cm 17.7 kg/m2 46668.0 4 g 73 /min 98 % 98 % 160/71 mm[Hg] Gricelda Delgadillo MA [facility] 5 12:54:47 Date Recorded Body height Body mass index (BMI) Body weight Heart rate Oxygen saturation Oxygen saturation in Arterial blood by Pulse oximetry Systolic And Diastolic Provider Name and Address Organization Details Last Updated DateTime 5 173.99 cm 17.2 kg/m2 87998.4 1 g 90 /min 97 % 97 % 126/80 mm[Hg] Gricelda Delgadillo MA [facility] 5 11:19:27 Date Recorded Body height Body mass index (BMI) Body weight Oxygen saturation Oxygen saturation in Arterial blood by Pulse oximetry Heart rate Systolic And Diastolic Provider Name and Address Organization Details Last Updated DateTime 4 173.99 cm 18.1 kg/m2 12623.6 8 g 98 % 98 % 81 /min 128/84 mm[Hg] Micaela Lancaster MA [facility] 4 12:43:44 Date Recorded Body height Body mass index (BMI) Body weight Oxygen saturation Oxygen saturation in Arterial blood by Pulse oximetry Heart rate Systolic And Diastolic Provider Name and Address Organization Details Last Updated DateTime 4 173.99 cm 18.7 kg/m2 90794.0 5 g 98 % 98 % 73 /min 132/72 mm[Hg] Micaela Lancaster MA [place] [facility] 4 10:42:58 Social History Question Answer Notes LastModified by Organizat ion Details LastModified Time Tobacco Smoking Status Former Smoker Micaela Lancaster MA null, [place] - [facility] 04/08/2022 15:26:22 Do You Have An Advance Directive? No Information not available 12/30/2017 What Is Your Level Of Caffeine Consumption? Moderate Information not available 12/30/2017 Can Child Swim? Yes Informati on not available 12/30/2017 How Much Tobacco Do You Chew? None Information not available 12/30/2017 What Type Of Diet Are You Following? REGULAR Information not available 12/30/2017 Which Illicit Or Recreational Drugs Have You Used? No Information not available 12/30/2017 Education 12 Information no t available 12/30/2017 [...] Date Of Your Most Recent Tobacco Screening? 08/15/2024 Information not available 08/15/2024 How Many Children Do You Have? 6 [...] Smoke? Yes Information no t available 12/30/2017 How Much Tobacco Do You Smoke? 0.5 PPD [email or web address] Information not available 05/14/2021 General Stress Level Low Information not available 12/30/2017 Do You Use Sunscreen Routinely? Yes Information not available 12/30/2017 Has Tobacco Cessation Counseling Been Provided? No Information not available 04/08/2022 On What Date Was Tobacco Cessation Counseling Provided? 08/15/2024 Information not available 08/15/2024 How Many Years Have You Smoked Tobacco? 35 Information not available 12/30/2017 Sex: Male Functional Status Question Answer Note LastModified by Organizat ion Details LastModified Time Do you or have you ever used any other forms of tobacco or nicotine? No Information not available 04/08/2022 What is your level of alcohol consumption? None Information not available 12/30/2017 Do you or have you ever used smokeless tobacco? Former smokeless tobacco user [email or web address] Information not available 10/10/2018 Are you currently employed? No Information not available 12/30/2017 Are you able to care for yourself independently? Yes Information not available 12/30/2017 Do you or have you ever used e-cigarettes or vape? Former user of electronic cigarettes [email or web address] Information not available 10/10/2018 What is your exercise level? Moderate Information not available 12/30/2017 Mental Status Question Answer Note LastModified by Organization D etails LastModified Time Do you feel stressed (tense, restless, nervous, or anxious, or unable to sleep at night)? [id number] Information not available 03/22/2024 Family History Relationship Description Onset Age of [...] Response Coronary Artery Disease N Other N High Blood Pressure N Atrial Fibrillation N Kidney or Bladder Problems N Thyroid Problems N GI Problems N Depression N COPD Y Blood Clots N Skin Problems N Eating Disorder N Anemia N Heart Attack ([place]) N Anxiety Disorder N Diabetes N Muscle, Joint, or Bone Problems Y Seizures/Epilepsy N Acid Reflux (GERD) Y Cancer Y Stroke N Asthma N Allergies Y ADHD N Substance Abuse N High Cholesterol N Hepatitis Y Liver Disease Y Schizophrenia N Headaches Y Osteoporosis N Heart Failure N Immunizations Vaccine Type Date Status Note Provider Nam e and Address Organization Details Recorded Time Tdap 6 completed Jazmin Shankar MD Attn: Accounting[address] [place], [address], [facility] 12/25/2018 23:20:28 COVID-19, mRNA, LNP-S, PF, 100 mcg/0.5mL dose or 50 mcg/0.25mL dose 1 completed Randi Bellamy MA null, [place] - [facility] 08/12/2020 14:33:38 influenza, whole 6 completed Not Available [facility] 08/15/2024 11:04:24 pneumococcal polysaccharide PPV23 2 completed Not Available [facility] 08/15/2024 11:04:24 Influenza, split virus, quadrivalent, PF 2 completed Not Available [facility] 08/15/2024 11:04:24 Influenza, split virus, quadrivalent, preservative 9 completed Not Available [facility] 03/18/2019 02:41:59 pneumococcal polysaccharide PPV23 9 completed Not Available [facility] 03/18/2019 02:47:16 Tdap 3 completed Micaela Lancaster MA null, [place] - [facility] 07/29/2022 14:56:56 Influenza, split virus, trivalent, preservative 5 completed Gricelda Delgadillo [place], [place] - [facility] 03/23/2024 09:48:10 Past Encounters Encounter ID Performer Location Encounter Start Date Encounter Closed Date Diagnosis/Indication Diagnosis SNOMED-CT Code Diagnosis ICD10 Code Diagnosis IMO Codes Diagnosis Note [id number] Jazmin [facility] [address] [place] [address] 12/30/2017 10:08:17 12/30/2017 16:59:19 Neuropathy 348309813 G62.9 Gastroesop hageal reflux disease without esophagitis 891279768 K21.9 Standardiz ed adult depression screening tool completed 1993904778 29731 Z13.89 patient does not appear to be significan tly depressed. Chronic low back pain 27 3317753 M54.5 Cirrhosis of liver 89038 007 K74.60 discussed cirrhosis and liver masses with patient and recommende d getting back on the transplant list; he had been offered a liver before but declined it since he was feeling well and working to support his family. [id number] Jazmin Shankar MD [facility] [address] [place] [address] 09/02/2018 16:15:46 09/12/2018 09:09:46 Screening for malignant neoplasm of colon 281695845 Z12.11 Liver mass 460791608 R16 .0 [id number] Jazmin Shankar MD [facility] [address] [place] [address] 10/05/2018 11:14:03 10/12/2018 09:06:19 Malignant neoplasm of liver 00648687 C22.9 Liver mass 559155200 R16 .0 Moderate p ersistent asthma 818350056 J45.40 Neuropathy 639154601 G62 .9 Gastroesop hageal reflux disease without esophagitis 576960455 K21.9 [id number] Jazmin Shankar MD [facility] [address] [place] [address] 10/28/2018 14:23:42 11/01/2018 09:34:29 Malignant neoplasm of liver 24438254 C22.9 Standardiz ed adult depression screening tool completed 6436707789 00034 Z13.89 patient does not appear to be significan tly depressed. [id number] Jazmin Shankar MD [facility] [address] [place] [address] 12/20/2018 16:24:11 12/26/2018 08:50:23 Not up to date with immunizations 233152630 Z28.3 risks and benefits of immunizati ons reviewed, and patient agreed to receive shot Malignant neoplasm of liver 37677008 C22.9 [id number] Jazmin Shankar MD [facility] [address] [place] [address] 01/30/2019 13:20:31 02/06/2019 09:32:18 Acute exacerbation of chronic bronchitis 914908069 J44.1 Patient started on augmentin for 2 weeks; strongly advised to quit smoking. Malignant neoplasm of liver 93353708 C22.9 cancer has been treated; he is now on the transplant waiting list and close to the top. [id number] Jazmin Shankar MD [facility] [address] [place] [address] 03/16/2019 15:18:48 03/23/2019 10:31:43 Acute bronchitis 52297765 J20.9 Chicken soup, orange juice, popsicles, snow cones, slurpees, ice cream, tea with honey and lemon, hot lemonade, gatorade, and yogurt may make you feel better. [id number] Jazmin Shankar MD [facility] [address] [place] [address] 04/14/2019 12:10:45 04/17/2019 11:30:01 Trying to give up smoking 452244240 Z72.0 Patient has to quit smoking so he can get a liver transplant . [id number] Jazmin Shankar MD [facility] [address] [place] [address] 05/01/2019 09:54:57 05/02/2019 12:43:47 Malignant neoplasm of liver 95484849 C22.9 cancer has been treated; he is now on the transplant waiting list and close to the top. [id number] Jazmin Shankar MD [facility] [address] [place] [address] 07/21/2019 10:04:41 07/21/2019 15:35:06 [id number] Jazmin Shankar MD [facility] [address] [place] [address] 08/23/2019 10:08:03 08/28/2019 14:59:20 Neuropathy 520861596 G62.9 Malignant neoplasm of liver 38585234 C22.9 cancer has been treated; he is now on the transplant waiting list and close to the top. [id number] Jazmin Shankar MD [facility] [address] [place] [address] 11/27/2019 12:01:14 11/29/2019 11:31:50 Malignant neoplasm of liver 51175910 C22.9 cancer has been treated; he is now on the transplant waiting list and close to the top. [id number] Jazmin Shankar MD [facility] [address] [place] [address] 01/24/2020 14:03:37 01/29/2020 06:35:05 Malignant neoplasm of liver 60725936 C22.9 cancer has been treated; he is [...] 3001 J43.9 Patient advised to quit smoking. [id number] Jazmin Shankar MD [facility] [address] [place] [address] 03/20/2020 14:05:12 03/25/2020 10:00:02 Opioid dependence 92567068 F11.20 Bilateral carpal tunnel syndrome 8317072144 9182157 G56.03 Awaiting transplantation of liver 807424236 Z76.82 can't get on the transplant list until he quits smoking, which has been just about impossible for him. Malignant neoplasm of liver 20759289 C22.9 cancer has been treated; he is [...] advised to quit smoking. Depression screening 171 411581 Z13.31 patient does not appear to be significan tly depressed. [id number] Jazmin Shankar MD [facility] [address] [place] [address] 08/12/2020 11:09:56 08/22/2020 08:01:13 Malignant neoplasm of liver 99953547 C22.[address] scan. [id number] Cedrick Barriga MD [facility] [address] [place] [address] 11/18/2020 08:06:17 11/20/2020 12:37:16 Seizure 29072650 R56.9 meds an follow up... seeing neurology. .. Malignant neoplasm of liver 86263937 C22.9 seeing specialist ... Gastroesop hageal reflux disease 976343920 K21.9 meds and follow up... Chronic ob structive pulmonary disease 17964892 J44.9 meds and follow up.. Benign pro static hyperplasia 648995547 N40.0 meds and follow up... [id number] Cedrick Barriga MD [facility] [address] [place] [address] 01/27/2021 10:57:37 01/28/2021 10:00:24 Seizure 06150567 R56.9 meds an follow up... seeing neurology. .. possibly from high NH4+ level in past Malignant neoplasm of liver 68031925 C22.9 seeing specialist ... Gastroesop hageal reflux disease 917515333 K21.9 meds and follow up... Chronic ob structive pulmonary disease 14986620 J44.9 meds and follow up.. Benign pro static hyperplasia 107813511 N40.0 meds and follow up... Cirrhosis of liver 007 K74.60 on transplant list at [facility] [id number] Fern Hernandez MD [facility] (Adult Med) [address] [place] [address] 05/14/2021 10:49:02 05/15/2021 09:56:39 Cirrhosis of liver 47044769 K74.60 Awaiting for the liver transplant , Pain of le ft knee joint 0045723635 05655 M25.562 History of left knee injury. Underweight 102613560 R6 3.6 On ensure supplement . Wants appetite to be enhanced, Chronic back pain 816461 002 G89.29 From accident at job of [employer] on . on gabapentin . [id number] Fern Hernandez MD [facility] (Adult Med) [address] [place] [address] 07/10/2021 13:54:46 07/11/2021 12:38:34 Pain of left knee joint 9106721673 06048 M25.562 Allergic disorder 358403 001 T78.40XA wasps and hornets Acute sinusitis 94759289 J01.90 Screening for malignant neoplasm of prostate 311170685 Z12.5 Type B vir al hepatitis 90559890 B19.10 Hyperlipid emia screening 679357379 Z13.220 Chronic ob structive pulmonary disease 83723566 J44.9 At [facility] risk of nutritional deficit 891110605 Z91.89 Underweight 180324991 R6 3.6 Seizure 82447180 R56.9 Cirrhosis of liver 007 K74.60 [id number] MD [facility] (Adult Med) [address] [place] [address] 01/21/2022 16:03:06 01/29/2022 15:15:27 Gastroesophageal reflux disease 252984508 K21.9 Pain of le ft knee joint 0252433653 56960 M25.562 Seizure 97483217 R56.9 Cirrhosis of liver 007 K74.60 Esophageal varices 56136 008 I85.00 Pulmonary emphysema 8743 3001 J43.9 Chronic ob structive pulmonary disease 09277746 J44.9 Chronic back pain 174883 002 G89.29 [id number] MD [facility] (Adult Med) [address] [place] [address] 04/08/2022 15:00:55 04/14/2022 14:55:50 Nausea 259132437 R11.0 Chest wall pain 28774836 6 R07.89 Hepatic encephalopathy 59075387 K76.82 [id number] MD [facility] (Adult Med) [address] [place] [address] 07/06/2022 17:10:16 07/13/2022 17:10:31 Underweight 694828247 R63.6 Chronic back pain 972897 002 G89.29 Chest wall pain 31500974 6 R07.89 Hepatic encephalopathy 77152249 K76.82 Gastroesop hageal reflux disease 294653406 K21.9 Nausea 808462329 R11.0 [id number] MD [facility] (Adult Med) [address] [place] [address] 07/29/2022 12:33:20 07/31/2022 09:18:05 Hiatal hernia 01695516 K44.9 Chronic back pain 344331 002 G89.29 Chest wall pain 30396977 6 R07.89 Active immunization 3387 9002 Z23 [id number] MD [facility] (Adult Med) [address] [place] [address] 09/21/2022 10:48:04 09/22/2022 10:21:37 Chronic back pain 267771254 G89.29 Cirrhosis of liver 41805 007 K74.60 Medication monitoring 39 1854986 Z51.81 Pulmonary emphysema 8743 3001 J43.9 Screening for malignant neoplasm of prostate 876011358 Z12.5 Screening for malignant neoplasm of colon 503720443 Z12.11 Hepatic encephalopathy 23705566 K76.82 [id number] MD [facility]izo (Adult Med) [address] [place] [address] 02/01/2023 15:51:04 02/03/2023 14:20:29 Bronchitis 09528369 J40 [id number] MD [facility]izo (Adult Med) [address] [place] [address] 03/17/2023 14:31:41 03/23/2023 15:10:01 Cirrhosis of liver 93353591 K74.60 Chronic ob structive pulmonary disease 69437637 J44.9 Esophageal varices 25283 008 I85.00 [id number] MD [facility] Rizo (Adult Med) [address] [place] [address] 09/21/2023 12:22:51 09/21/2023 13:08:18 Cirrhosis of liver 09555011 K74.60 Esophageal varices 88523 008 I85.00 Tobacco de pendence syndrome 11622324 F17.200 Chronic back pain 677944 002 G89.29 Hyperlipid emia screening 428393831 Z13.220 Pulmonary emphysema 8743 3001 J43.9 [id number] MD [facility] Rizo (Adult Med) [address] [place] [address] 10/12/2023 10:26:33 10/15/2023 11:22:48 History of thrombocytopenia 5228136796 9108 Z86.2 [id number] MD [facility] Rizo (Adult Med) [address] [place] [address] 03/22/2024 16:00:44 03/29/2024 16:37:46 Chronic obstructive pulmonary disease 02929502 J44.9 Cirrhosis of liver 10617 007 K74.60 Seizure 56793025 R56.9 Tobacco de pendence syndrome 22489980 F17.200 Type B vir al hepatitis 38520470 B19.10 Paresthesia 58650695 R20 .2 Chronic back pain 227140 002 G89.29 Active immunization 3387 9002 Z23 Nausea 791956984 R11.0 [id number] MD [facility] Rizo (Adult Med) [address] [place] [address] 06/21/2024 12:31:53 06/22/2024 16:30:32 Chronic back pain 548508246 G89.29 Chronic ob structive pulmonary disease 31714004 J44.9 Tobacco de pendence syndrome 43101640 F17.200 Hepatic encephalopathy 16379102 K76.82 F/U GI Common carlito e duct calculus 272333795 K80.50 9502 [id number] MD [facility] Rizo (Adult Med) [address] [place] [address] 08/15/2024 11:02:52 08/16/2024 10:07:02 Chronic daily headache 5551452698 28486 R51.9 018029 Chronic back pain 483360 002 G89.29 Benign pro static hyperplasia 774093883 N40.0 27776938 Health Concerns Section Related Observation LastModified by Organization Detai ls LastModified Time None Recorded Concern Status LastModified by Organization Details LastModified Time None Recorded Advance Directives Directive N: Payers Insurance Date Sequence Insurance Name Policy Number Policy Norman Covered Member ID Norman Member ID Guarantor Name 09/21/2023 [place] [facility] Ronan Louis Baez [id number] Isreal Baez 09/21/2023 2 [place] [employer] Isreal Baez [id number] Isreal Baez 09/21/2023 3 [facility] [id number] Ronan Baez [id number] Isreal Baez 09/21/2023 3 [place] Ronan Baez [id number] Isreal Baez 08/12/2024 1 [facility] (MEDICARE REPLACEMENT/AD VANTAGE - PPO) [id number] Ronan Baez [id number] Isreal Baez 08/12/2024 2 [place] WHEN MEDICARE OR MEDICARE REPLACEMENT PRIMARY) Irseal Baez [id number] Isreal Baez Notes Date Note Type Note Provider Name and Address Organization Details Recorded Time 09/21/2023 text/html Here for f/u. Unsure why he can no longer be seen at [facility]. Needs referral to be seen by GI at [facility]. Recently seen by urologist. Lian Melchor MD Attn: Accounting,[address] [place], [address], [facility] 09/21/2023 13:23:37 10/12/2023 text/html Here to discuss lab results Lian Melchor MD Attn: Accounting[address] [facility], [place], [address], [facility] 10/12/2023 11:28:28 03/22/2024 text/html Has a parttime job working four days weekly. Requesting increase in pain medication. Has cramps in multiple muscles as well as numbness and tingling Gricelda Delgadillo MA [facility], [facility] 03/23/2024 09:45:24 06/21/2024 text/html Here for f/u. Had recent ERCP. Hepatic duct was stenosed and stone was present in biliary tree. Needs med refill Lian Melchor MD Attn: Accounting[address] [facility], [place], [address], [facility] 06/21/2024 13:40:27 08/15/2024 text/html Has chronic problems with headaches. Headaches are periorbital. GI recommends avoidance of nsaids because of chronic liver disease and bruising. Lian Melchor MD Attn: Accounting[address] [facility], [place], [address], [facility] 08/15/2024 12:08:45
--- OUTSIDE RECORDS SUMMARY | 2024-12-09 15:08 | XMS_ITS | Encounter Summary ---
Author Organization [facility] Address [address] [place] [address] Phone Care Team Providers Care Assistant Property Manager Name Role Phone Dequan Frye MD Unavailable [phone] Lian Melchor MD Primary Care Provider Encounter Details Date Type Department Care Team (Late st Contact Info) Description 12/09/2023 Telephone [facility] Gastroenterology [address] [facility] 12[address] [place] [address] [place] [address] Zoya Masterson LPN Social History Tobacco Use Types Packs/Day Years Used Date Smoking Tobacco: Every Day Cigarettes 1.5 42.8 Started: 1982 Passive Smoke Exposure: Current Smokeless [...] on file Legal Sex Male 2:43 AM [employer] Gender Identity Not on file Sexual Orientation [...] on filedocumented in this encounter Care Teams Assistant Property Manager Relationship Specialty Start Date End Date Lian Melchor MD [address] [address] PCP - General Gastroenterology 11/13/22 Dequan Frye MD Referring Physician Transplant Hepatology 08/19/18 documented as of this encounter
--- OUTSIDE RECORDS SUMMARY | 2024-12-09 15:08 | XMS_ITS ---
Author Organization [facility] Address [address] [place] [address] Care Team Providers Care Property Economist Name Role Phone Dequan Frye MD Unavailable [phone] Lian Melchor MD Primary Care Provider Active Problems Patient Care Coordination No te Formatting of this note migh t be different from the original. Best number to call is [phone]. Cell phone has been turned off as of 08/17/2019 Problem Noted Date Diagnosed Date Acute confusional state 08/24/2024 Assessment & Plan (08/24/2024 5:50 PM CDT): I suspect he had a seizure due to changes he made to his dose of Keppra on his own. He reports he was concerned about liver toxicity data not see clear elevation in transaminases on recent laboratory testing. He does have an elevated alkaline phosphatase on presentation which may be related to underlying chronic liver disease. Recent admission to [facility] for status epilepticus reviewed from June 2024 Continue home Keppra 1000 mg b.i.d. (he self-reduced his dose from 200 mg BID to 1000 mg BID) Seizure precautions He he and his both that he drinks a significant amount of alcohol. Stop formal alcohol withdrawal monitoring Chronic pain syndrome 08/24/2024 Assessment & Plan (08/24/2024 5:19 PM CDT): Continue home gabapentin 800 mg q.i.d. Status epilepticus 07/14/2024 Common bile duct stone 06/13/2024 Encounter for replacement of biliary stent 06/13 RUQ pain 05/24/2024 Moderate protein-calorie malnutrition 11/25/2022 Abdominal pain 11/24/2022 Intractable nausea and vomiting 11/24/2022 Benign prostatic hyperplasia with incomplete bladder emptying 11/24/2022 Assessment & Plan (08/24/2024 5:50 PM CDT): Patient reports urinating small amounts frequently. Suspect incomplete bladder emptying. Bladder scan and straight cath as needed Continue home Flomax 0.4 mg nightly Choledocholithiasis 11/24/2022 Hiatal hernia 08/14/2022 Seizure 07/20/2022 Cirrhosis of liver without ascites 06/11/2022 Overview (06/11/2022): Added automatically from request for surgery [id number] Assessment & Plan (08/24/2024 5:50 PM CDT): Continue home Viread Seizure disorder 12/10/2020 Assessment & Plan (08/24/2024 5:50 PM CDT): I suspect he had a seizure due to changes he made to his dose of Keppra on his own. He reports he was concerned about liver toxicity data not see clear elevation in transaminases on recent laboratory testing. He does have an elevated alkaline phosphatase on presentation which may be related to underlying chronic liver disease. Recent admission to [facility] for status epilepticus reviewed from June 2024 Continue home Keppra 1000 mg b.i.d. (he self-reduced his dose from 200 mg BID to 1000 mg BID) Seizure precautions He he and his both that he drinks a significant amount of alcohol. Stop formal alcohol withdrawal monitoring Osteopenia 09/21/2018 Chronic viral hepatitis B 08/31/2018 Overview (08/31/2018): Added automatically from request for surgery [id number] Hepatocellular carcinoma 08/09/2018 Assessment & Plan (08/24/2024 5:50 PM CDT): Continue home Viread Chronic viral hepatitis B wi thout delta agent and without coma 08/09/2018 Assessment & Plan (08/24/2024 5:50 PM CDT): Continue home Viread Smokes tobacco daily 05/11/2012 Assessment & Plan (08/24/2024 5:50 PM CDT): Tobacco Cessation Counseling Social History Tobacco Use Smoking Status Every Day Current packs/day: 0.50 Average packs/day: 1.5 packs/day for 42.5 years (63.2 ttl pk-yrs) Types: Cigarettes Start date: 1982 Passive exposure: Current Smokeless Tobacco Never Tobacco Comments trying to quit-smoking Patient appears appropriate for inpatient counseling as they are: - Competent and alert - Have been diagnosed with COPD related to tobacco use Advice to quit and impact of smoking provided to pt Willingness to quit - interested in quitting Plan to quit including - trying Nicoderm He has not set a quit date. I recommended he select one Follow up with PCP to discuss further Resources made available including smoking cessation aftercare instructions at discharge. Counseling provided for 4 minutes Pre-transplant evaluation for liver transplant Emphysema Current Treatment and Therapy Plans No current plan information found. Past Treatment and Therapy Plans No past plan information found. Lifetime Dose Tracking * Chemical Lifetime Dose Automatic Entry Manual Entr y Fluoro Time 25.933 minutes 25.933 minutes 0 minutes Air kerma at the reference point (Ka,r) 424 mGy 4 24 mGy 0 mGy DLP 3,581 mGycm 3,581 mGycm 0 mGycm
--- OUTSIDE RECORDS SUMMARY | 2024-12-09 15:08 | XMS_ITS | Encounter Summary ---
Author Organization [facility] Address [address] [place] [address] Care Team Providers Care Field Geologist Name Role Phone Jazmin Shankar MD Primary Care Provider [phone] Cedrick Barriga MD Primary Care Provider [phone] Unknown, Notinfile Primary Care Provider Unavail able Cedrick Barriga MD Primary Care Provider [phone] Cedrick Barriga MD Unavailable [phone] Olya Corcoran RN Unavailable [phone] Dequan Frye MD Unavailable [phone] Lian Melchor MD Primary Care Provider Encounter Details Date Type Department Care Team (Late st Contact Info) Description 04/10/2020 Telephone [facility] Radiology [address] [facility] [place] [address] Fabian Almaguer MD [address] [facility] [address] [place] [address] Social History Tobacco Use Types Packs/Day Years Used Date Smoking Tobacco: Every Day Cigarettes 0.3 42.8 Started: 1984 Smokeless Tobacco: Never Comments:trying to quit-smok ing Alcohol Use Standard Drinks/Week Comments Not Currently 0 (1 standard drink = 0.6 oz pur e alcohol) denies Sex and Gender Information Value Date Recorded Sex Assigned at Not on file Legal Sex Male 2:43 AM ECONOMIC ADVISER Gender Identity Not on file Sexual Orientation [...] COVID: Suspected 03/01/2023 03/01/2023 03/01/2023 10:12 PM ECONOMIC ADVISER RSV, droplet 03/01/2023 03/01/2023 03/08/2023 3:05 AM ECONOMIC ADVISER documented as of this encounter Care Teams Field Geologist Relationship Specialty Start Date End Date Jazmin Shankar MD PCP - General Family Medicine 08/09/18 12/23/20 Cedrick Barriga MD [address] [place] [address] PCP - General 12/24/20 07/19/22 Unknown, Notinfile PCP - General 07/20/22 07/20/22 Cedrick Barriga MD [address] [place] [id number] PCP - General Family Medicine 07/21/22 11/12/22 Lian Melchor MD [address] [place] [id number] PCP - General Gastroenterology 11/13/22 Cedrick Barriga MD [address] [place] [id number] 07/20/22 08/11/22 Olya Corcoran, RN Wood Processing Worker 08/10/1812/09 Dequan Frye MD Referring Physician Transplant Hepatology 08/19/18 documented as of this encounter
--- OUTSIDE RECORDS SUMMARY | 2024-12-09 15:08 | XMS_ITS | Clinical Summary ---
Author Organization [facility] Address [address] [place] [address] Care Team Providers Care Svp [employer] Partnerships Name Role Phone Dequan Frye MD Unavailable [phone] Lian Melchor MD Primary Care Provider Allergies Active Allergy Reactions Criticality Noted Date Comments Ciprofloxacin Stomach upset Low Eletriptan Hbr Unknown 08/21/2013 Fentanyl Delusions,Hallucinat ions ,Agitation,Nausea only High 11/02/2018 Extreme agitation/paradoxical reaction requiring precedex and ICU transfer [place] Swollen tongue High 09/20/2018 Throat closes Medications tamsulosin (FLOMAX) 0.4 mg extended release capsuleIndication s:benign prostatic hyperplasia with lower urinary tract sx Take 1 capsule (0.4 mg total) by mouth nightly 11/24/19 19 Active HYDROcodone-aceta minophen (NORCO) 5-325 mg per tablet Take 1 tablet by mouth 3 (three) times a day as needed 07/08/19 23 Active albuterol HFA (PROVENTIL HFA,VENTOLIN HFA,PROAIR HFA) 90 mcg/actuation inhaler Inhale 2 puffs every 4 (four) hours as needed for wheezing (1st) 1 each 3 07/23/19 23 Active Additional Information Patient taking differently:2 puff inhalationEvery 4 hours 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 (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), (No PRN reasons reported), Reported on 11/21/[address] (PROTONIX) 40 mg EC tablet Take 1 tablet (40 mg total) by mouth daily 28 tablet 03/02/19 24 Active tenofovir disoproxil fumarate (VIREAD) 300 mg tablet Take 1 tablet (300 mg total) by mouth daily 30 tablet 11 01/17/20 24 Active gabapentin (NEURONTIN) 800 mg tabletIndications :Neuropathic Pain,back pain Take 1 tablet (800 mg total) by mouth 4 (four) times a day 360 tablet 07/18/19 25 Active budesonide-formot Swapna (SYMBICORT) 160-4.5 mcg/actuation inhaler Inhale 2 puffs 2 (two) times a day as needed Rinse mouth with water after use. Do not swallow. Active ondansetron ODT (ZOFRAN-ODT) 4 mg disintegrating tablet Take 1 tablet (4 mg total) by mouth every 8 (eight) hours as needed for nausea or vomiting Active EPINEPHrine 0.3 mg/0.3 mL auto-injection syringe Inject 0.3 mL (0.3 mg total) into the muscle as instructed as needed 07/11/19 Active levETIRAcetam (KEPPRA) 750 mg tablet Take 2 tablets (1,500 mg total) by mouth 2 (two) times a day 120 tablet 11/22/19 25 2025 Active nortriptyline (PAMELOR) 10 mg capsule Take 1 capsule (10 mg total) by mouth nightly 30 capsule 11/22/19 25 2025 Active topiramate (TOPAMAX) 50 mg tablet Take 1 tablet (50 mg total) by mouth daily 30 tablet 11/22/19 25 Active topiramate (TOPAMAX) 50 mg tablet Take 1 tablet (50 mg total) by mouth 2 (two) times a day 08/16/19 25 2024 Disconti nued(Reo rder) levETIRAcetam (KEPPRA) 1,000 mg tablet Take 1 tablet (1,000 mg total) by mouth 2 (two) times a day 60 tablet 1 08/26/19 25 2024 Disconti nued(Alt ernate therapy) Active Problems Patient Care Coordination No te Formatting of this note migh t be different from the original. Best number to call is [phone]. Cell phone has been turned off as [...] underlying chronic liver disease. Recent admission to [facility] for status epilepticus reviewed from June 2024 [...] (06/11/2022): Added automatically from request for surgery [id number] Assessment & Plan (08/24/2024 5:50 PM CDT): [...] underlying chronic liver disease. Recent admission to [facility] for status epilepticus reviewed from June 2024 Continue home Keppra 1000 mg b.i.d. (he self-reduced his dose from 200 mg BID to 1000 mg BID) Seizure precautions He he and his both that he drinks a significant amount of alcohol. Stop formal alcohol withdrawal monitoring Osteopenia 09/21/2018 Chronic viral hepatitis B 08/31/2018 Overview (08/31/2018): Added automatically from request for surgery [id number] Hepatocellular carcinoma 08/09/2018 Assessment & Plan (08/24/2024 [...] minutes Pre-transplant evaluation for liver transplant Emphysema Encounters Date Type Department Care Team Description 11/21/2024 2:00 PM CDT Office Visit [facility] Epilepsy [address] [facility] 6th [place] [address] [place] [address] David Kumar MD Partial idiopathic epilepsy with seizures of localized onset, not intractable, with status epilepticus (HCC) (Primary Dx); Intractable chronic migraine without aura and without status migrainosus 11/16/2024 Results Follow-Up [facility] Gastroenterology [facility] [address] [place] [address] Dorie Caba RN Hepatic function panel 10/23/2024 Telephone [facility] Gastroenterology [facility] [address] [place] [address] Dorie Caba RN Lab follow up 10/10/2024 Results Follow-Up [facility] Gastroenterology [address] [facility] 2nd [address] [place] [address] Staci Spangler MD MRI/MRCP (abdomen) W WO Contrast 10/06/2024 10:42 AM CDT - 10/06/2024 11:59 PM CDT Hospital Encounter [facility] Radiology at [facility] [address] [place] [address] Cirrhosis of liver without ascites, unspecified hepatic cirrhosis type (HCC); Chronic viral hepatitis B without delta agent and without coma (HCC); Hepatocellular carcinoma (HCC) Discharge Disposition: Discharge to home or self care 09/29/2024 Orders Only [facility] Gastroenterology [address] [place] [address] [address] [place] [address] Kee Lew MD Common bile duct stone (Primary Dx) from Last 3 Months Immunizations Immunization Administration [...] pain COPD (chronic obstructive pu lmonary disease) Lung nodule right Herpes Liver cancer (HCC) [...] you have a drink containing alcohol? Never 08/18/2024 Q2: How many drinks containi ng alcohol do you have on a typical day when you are drinking? Patient does not drink Q3: How often do you have si x or more drinks on one occasion? Never 08/18/2024 Personal Safety Answer Date Recorded Have you ever been in or are you currently in a harmful physical or emotional relationship or is someone making you feel afraid or unsafe? 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 Not on file Not on file Obstetrics History Last Filed Vital Signs Vital Sign Reading Time Taken Comments Blood Pressure 119/86 11/21/2024 1:42 PM CDT Pulse 81 11/21/2024 1:42 PM CDT Temperature 36.6 C (97.9 F) 08/25/2024 3:47 AM CDT Respiratory Rate 16 08/25/2024 8:10 AM CDT Oxygen Saturation 99% 08/25/2024 8:10 AM CDT Inhaled Oxygen Concentration - - Weight 50.8 kg (112 lb) 11/21/2024 1:42 PM CDT Height 175.3 cm (5' 9) 11/21/2024 1:42 PM CDT Body Mass Index 16.54 11/21/2024 1:42 PM CDT Plan of Treatment Scheduled Procedures Name Priority Associated Diagnoses Date/Ti me ESOPHAGOGASTRODUODENOSCOPY Hiatal hernia TRANSPLANT LIVER Chronic viral hepatitis B (HCC) Health Maintenance Due Date Last Done Comments Depression Screening 1965 Regular Well Visit/Exam 18-64 09/13/1981 Lung Cancer Screening 09/13/2013 Zoster Vaccine (1 of 2) 09/13/2013 Prostate Cancer Screening-PSA 09/20/2020 09/20/2018 Pneumococcal vaccine <65 (2 of 2 - PCV) 12/15/2022 12/15/2021, 12/20/2018 Covid-19 Vaccine (2 - 2024-2 6 season) 2024 06/04/2020, 06/04/2020 Influenza Vaccine (#1) 2024 , 12/15/2021, 12/20/2018, Additional history exists Colon Cancer Screening-Colonoscopy 05/01/2025 05/02/2015 DTaP/Tdap/Td Vaccine (4 - Td or Tdap) 07/29/2032 07/29/2022, 12/22/2015, 07/19/2015 Colon Cancer Screening-CT Colonography Discontinued 05/02/2015 Colon Cancer Screening-DNA Stool Discontinued 05/02/19 16 Colon Cancer Screening-FIT Discontinued 05/02/2015 Colon Cancer Screening-Sigmoidoscopy Discontinued 05/02/2015 Hepatitis C Screening Completed 07/17/2024 , 09/20/2018, 05/10/2012 Goals Goal Patient Goal Type Associated Problems [...] telling anyone). Medical Devices Implanted Type Area Tester Vibrator Equipment Device Identifier Shelf Expiration Date Model / Serial / Lot [employer] 10fr 5cm Biliary Double Pigtail Stent [id number] - [id number] Implanted:Qty: 1 on 06/08/2024 by Kee Lew MD at [facility] Stent N/A: Bile Duct [employer] Becca 05/01/2026 [id number] / / [id number] Lower Leg Ortho Hardware-01/16/20 18 Implanted: [id number] (Quantity not on file) Left: Leg [employer] [id number] Embosphere Prefill Saline Syringe Compressible Nonaggregate - [id number] Implanted:Qty: 1 on 11/02/2018 at [facility] Unicon 05/29/2021 [id number] / / [id number] Procedures Procedure Name Priority Date/Time Associated Diagnosis Comments HEPATIC FUNCTION PANEL Routine 11/15/2024 10:33 AM CDT Common bile duct stone MRI ABDOMEN MRCP W WO CONTRAST Schedule Routine, Read Routine (OP Routine) 10/06/2024 11:49 AM CDT Cirrhosis of liver without ascites, unspecified hepatic cirrhosis type (HCC) Chronic viral hepatitis B without delta agent and without coma (HCC) Hepatocellular carcinoma (HCC) HEPATITIS C ANTIBODY Routine 07/17/2024 5:47 AM CDT PSA SCREEN Routine 09/20/2018 7:23 AM CDT Pre-transplant evaluation for liver transplant Chronic hepatitis B (HCC) Hepatocellular carcinoma (HCC) COLONOSCOPY REPORT 05/02/2015 from Last 3 Months or Most Recently Relevant to Health Maintenance Results * (ABNORMAL) Hepatic function panel (11/15/2024 10:33 AM CDT) Pathologist [facility] Protein, sr 6.9 6.0 - 8.5 g/dL [facility] - 01 Albumin 3.7(L) 3.9 - 4.9 g/dL [facility] - 01 Bilirubin, Total 0.4 0.0 - 1.2 mg/dL [facility] - 01 Bilirubin, direct 0.15 0.00 - 0.40 mg/dL [facility] - 01 Alk phos 146(H) 47 - 123 IU/L [facility] - 01 Comment:Please note refere nce interval change AST 25 0 - 40 IU/L [facility] - 01 ALT 16 0 - 44 IU/L [facility] - 01 Blood 11/15/2024 10:3 3 AM CDT 11/15/2024 Narrative [facility] - 11/16/2024 3:35 AM CDT Performed at: [address] [place] [id number] Director Of Market Research: Juan Carlos Mcgee PhD, Phone: [phone] us Kee Lew MD LAB BLOOD ORDERABL ES Final Result [facility] - 01 * MRI/MRCP (abdomen) W WO Contrast (10/06/2024 11:49 AM CDT) Anatomical Region Laterality Modality Body N/A Magnetic Resonan ce 10/06/2024 12:2 5 PM CDT Impressions 10/06/2024 12:35 PM CDT 1. Pathologic findings of hepatic cirrhosis of posttreatment changes in segment and 6/7 without evidence of residual/recurrent disease, LR-TR nonviable. 2. No new hepatic lesion is seen. Findings of hepatic cirrhosis and portal hypertension. 3. Unchanged appearance of left hepatic lobe intraductal dilatation, likely secondary to stricture from prior segment 4 ablation site. Dictated by: Ovi Marcos MD The radiology attending physician has personally reviewed this study, and had reviewed and/or edited this written report and agrees with it. Electronically signed by: Rajesh Espinoza M.D. Narrative 10/06/2024 12:35 PM CDT EXAMINATION: MAGNETIC RESONANCE IMAGING OF THE ABDOMEN WITH AND WITHOUT CONTRAST HISTORY: Hepatic cirrhosis, chronic viral hepatitis B, hepatocellular carcinoma, patient is status post chemoembolization of hepatic segment 6/7 lesion 2012, chemoembolization of hepatic segment 4 lesion in 2019 TECHNIQUE: Magnetic resonance imaging of the abdomen was performed prior to and following the uneventful administration of intravenous contrast. Protocol: Liver Contrast: Dotarem (gadoterate) 10 mL COMPARISON: 08/24/2024 CT abdomen and pelvis, 05/13/2024 MRI of the abdomen FINDINGS: Liver: Cirrhotic configuration of the liver with nodular contour and the left liver hemiatrophy. - Bile ducts: There is a left intrahepatic biliary ductal dilatation, which is favored to be secondary to posttreatment changes of the previously reported segment 4 lesion. - Focal liver lesions: Posttreatment changes are noted in hepatic segment 4 hepatic segment 6/7 without evidence of pathologic enhancement, LR- unreliable. No new suspicious hepatic lesion is seen. - Vasculature: The hepatic veins and portal veins are patent. Paraesophageal and upper abdominal varices are noted. Gallbladder: The gallbladder is surgically absent. Pancreas: Normal. Spleen: The spleen is enlarged, measuring 14 cm in craniocaudal dimension. Patrice-Gamna bodies are noted. Adrenals: Normal. Kidneys: Tiny right renal cysts are noted. No suspicious renal lesion. No hydronephrosis. Other Findings: Normal appearance of the included bowel. No suspicious osseous lesion. Included lung bases are within normal limits. Prominent lymphatic duct is seen to the right of the lower thoracic spine. Procedure Note Rajesh Espinoza MD - 10/06/2024 EXAMINATION: MAGNETIC RESONANCE IMAGING OF THE ABDOMEN WITH AND WITHOUT CONTRAST HISTORY: Hepatic cirrhosis, chronic viral hepatitis B, hepatocellular carcinoma, patient is status post chemoembolization of hepatic segment 6/7 lesion 2013, chemoembolization of hepatic segment 4 lesion in 2019 TECHNIQUE: Magnetic resonance imaging of the abdomen was performed prior to and following the uneventful administration of intravenous contrast. Protocol: Liver Contrast: Dotarem (gadoterate) 10 mL COMPARISON: 08/24/2024 CT abdomen and pelvis, 05/13/2024 MRI of the abdomen FINDINGS: Liver: Cirrhotic configuration of the liver with nodular contour and the left liver hemiatrophy. - Bile ducts: There is a left intrahepatic biliary ductal dilatation, which is favored to be secondary to posttreatment changes of the previously reported segment 4 lesion. - Focal liver lesions: Posttreatment changes are noted in hepatic segment 4 hepatic segment 6/7 without evidence of pathologic enhancement, LR- unreliable. No new suspicious hepatic lesion is seen. - Vasculature: The hepatic veins and portal veins are patent. Paraesophageal and upper abdominal varices are noted. Gallbladder: The gallbladder is surgically absent. Pancreas: Normal. Spleen: The spleen is enlarged, measuring 14 cm in craniocaudal dimension. Patrice-Gamna bodies are noted. Adrenals: Normal. Kidneys: Tiny right renal cysts are noted. No suspicious renal lesion. No hydronephrosis. Other Findings: Normal appearance of the included bowel. No suspicious osseous lesion. Included lung bases are within normal limits. Prominent lymphatic duct is seen to the right of the lower thoracic spine. IMPRESSION: 1. Pathologic findings of hepatic cirrhosis of posttreatment changes in segment and 6/7 without evidence of residual/recurrent disease, LR-TR nonviable. 2. No new hepatic lesion is seen. Findings of hepatic cirrhosis and portal hypertension. 3. Unchanged appearance of left hepatic lobe intraductal dilatation, likely secondary to stricture from prior segment 4 ablation site. Dictated by: Ovi Marcos MD The radiology attending physician has personally reviewed this study, and had reviewed and/or edited this written report and agrees with it. Electronically signed by: Rajesh Espinoza M.D. Staci Spangler MD [facility] MRI PROCEDURES F inal Result * Hepatitis C antibody Blood (07/17/2024 5:47 AM CDT) Hep C Ab Nonreactive Nonreactive Comment:Antibodies to HCV no t detected. Does NOT exclude the possibility of recent exposure to HCV. Current interpretive data was last revised on 21 Blood 07/17/2024 5:47 AM CDT 07/17/2024 6:40 AM CDT Dusty Butler MD LAB MICROBIOLOGY - GE NERAL ORDERABLES Final Result Performing Organization Address [facility] [place] [address] * PSA screen (09/20/2018 7:23 AM CDT) PSA-Total 0.19 <=3.90 ng/mL [facility] Comment: Interpretive Data AGE SEX REFERENCE INTERVAL 0 minutes-150 years Female None 0 minutes-49 years Male None 50-59 years Male 0-3.90 60-69 years Male 0-5.40 70-79 years Male 0-6.20 80-150 years Male 0-6.20 Current interpretive data last revised 2017. Blood specimen (specimen) 09/20/2018 7:23 AM CDT 09/20/2018 8:16 AM CDT Dequan Frye MD LAB BLOOD ORDERABLES Fi nal Result Performing Organization Address [facility] [place] [address] * COLONOSCOPY REPORT (05/02/2015) Anatomical Region Laterality Modality Other Narrative 05/02/2015 Ordered by an unspecified provider. Historical Provider GI PROCEDURE ORDERABLES F inal Result from Last 3 Months or Most Recently Relevant to Health Maintenance Insurance [facility] [place]IC[place] [address] [place] [address] [employer] [facility] MEDICARE ADVANTAGE [facility]ICARE ADVANTAGE [facility] Address: [address] [address] [place] [address] IDPA [facility] MEDICARE ADVANTAGE [facility] Address: [address] [address] [place] [address] TRANSPLANT [employer] MEDICARE RISK ID[facility] Address: [address] [address] [place] [address] [facility] Address: [facility] [address] [place] [address] Advance Directives For more information, please contact: [phone] * Full Code (Latest Code Status on File) Date Activated Date Inactivated Comments 08/24/2024 4:54 PM 08/25/2024 2:10 PM * Full Code Date Activated Date Inactivated Comments 07/14/2024 11:32 AM 07/17/2024 7:12 PM * Full Code Date Activated Date Inactivated Comments 06/08/2024 1:35 PM 06/08/2024 7:39 PM * Full Code Date Activated Date Inactivated Comments 11/24/2022 1:58 PM 11/25/2022 2:41 PM * Full Code Date Activated Date Inactivated Comments 10/03/2022 9:44 AM 10/04/2022 4:02 PM Care Teams Svp Innovation Partnerships Relationship Specialty Start Date End Date Lian Melchor MD [address] [place] [id number] PCP - General Gastroenterology 11/13/22 Dequan Frye MD Referring Physician Transplant Hepatology 08/19/18
--- OUTSIDE RECORDS SUMMARY | 2024-12-09 15:08 | XMS_ITS | Encounter Summary ---
Author Organization [facility] Address [address] [place] [address] Phone Care Team Providers Care Strategic Advisor Name Role Phone Dequan Frye MD Unavailable [phone] Lian Melchor MD Primary Care Provider Encounter Details Date Type Department Care Team (Late st Contact Info) Description 11/27/2022 Telephone [facility] Gastroenterology [address] [facility] 12th [place] [address] [place] [address] Zoya Masterson LPN Social History [...] on file Legal Sex Male 2:43 AM NIGHT CLERK Gender Identity Not on file Sexual Orientation [...] COVID: Suspected 03/01/2023 03/01/2023 03/01/2023 10:12 PM NIGHT CLERK RSV, droplet 03/01/2023 03/01/2023 03/08/2023 3:05 AM NIGHT CLERK documented as of this encounter Care Teams Strategic Advisor Relationship Specialty [place] [address] [place] [address] PCP - General Gastroenterology 11/13/22 Dequan Frye MD Referring Physician Transplant Hepatology 08/19/18 documented as of this encounter
[2024-12-09 15:11] LABS: Hematocrit 36.7 % (42.0-52.0); Hemoglobin 12.6 g/dL (14.0-18.0); Immature Granulocyte Percent A 0.4 % (0-0.5); Immature Platelet Fraction Pct 4.2 % (0.9-11.2); Lymphocytes Absolute Auto 0.32 K/mm3 (0.9-3.2); Mean Corpuscular HGB Conc 34.3 g/dl (32-36); Mean Corpuscular Hemoglobin 29.6 pg (26-34); Mean Corpuscular Volume 86.4 fl (80-100); Nucleated Red Blood Cells Absolute Auto 0.000 K/mm3 (0.0-0.012); Nucleated Red Blood Cells Perc 0.0 % (0.0-0.2); Platelet Count Result 138 k/mm3 (150-375); Red Blood Count 4.25 M/mm3 (4.6-6.20); White Blood Count 7.7 K/mm3 (4.5-10.0)
[2024-12-09 15:15] LABS: Add Urine Microscopic? YES; Appearance Urine Turbid (Clear); Glucose Urine UA Negative (Negative); Leukocyte Esterase Ur Negative LEU/UL (Negative); Nitrate Urine Negative (Negative); Non Pathogenic Casts 0-2; Specific Grav Ur 1.016 (1.001-1.035)
[2024-12-09 15:31] LABS: Cannabinoid Screen Urine Positive (Negative)
[2024-12-09 15:32] LABS: Alanine Aminotransferase 30 U/L (6-50); Albumin Level 4.4 g/dL (3.5-5.1); Alkaline Phosphatase 279 U/L (38-126); Anion Gap 16 mmol/L (4-12); Aspartate Amino Transferase 37 U/L (17-59); Bilirubin,Total 1.5 mg/dL (0.2-1.3); Blood Urea Nitrogen 11 mg/dL (9-20); Calcium 9.8 mg/dL (8.4-10.2); Carbon Dioxide 18 mmol/L (22-30); Chloride 109 mmol/L (98-107); Creatine Kinase 86 U/L (55-170); Estimated CRCL calculation 51 ml/min; Estimated Glomerular Filt Rate > 60; Glucose 128 mg/dL (65-110); Lipase 54 U/L (23-300); Potassium 2.7 mmol/L (3.4-5.0); Sodium 143 mmol/L (137-145); Total Protein 9.5 g/dL (6.3-8.2)
[2024-12-09 15:37] LABS: INR 1.3; Prothrombin Time 16.3 Seconds (11.1-14.7)
[2024-12-09 15:38] LABS: Partial Thromboplastin Time 31.3 Seconds (22.3-36.8)
[2024-12-09] MEDS: IPRATROPIUM 0.5 MG/ALBUTEROL SULFATE 2.5 MG (BASE) AMPUL.NEB 3 ML INHALATION ×2 (15:43→19:35)
[2024-12-09 15:44] LABS: Influenza A QL RT-PCR Negative (Negative); Influenza B QL RT-PCR Negative (Negative); RSV RNA, RT-PCR Negative (Negative); SARS-CoV-2 RNA PCR Negative (Negative)
[2024-12-09 16:00] LABS: Thyroid Stimulating Hormone 0.880 uIU/mL (0.465-4.680)
[2024-12-09] MEDS: SODIUM CHLORIDE 0.9% IV 1,000 ML 999 ML IV CONT (16:59)
[2024-12-09] MEDS: KCL 20 MEQ/SW 100 ML 100 ML 50 MEQ IVPB ×2 (16:59→19:24)
[2024-12-09] MEDS: cefTRIAXone 1 GM in SODIUM CHLORIDE 0.9% IV 50 ML 100 ML IVPB (17:47)
--- NOTE | 2024-12-09 17:47 | PC.NURSE ---
pt potassium was paused and flushed to delivery the pt antibiotics
--- NOTE | 2024-12-09 17:54 | P.HP_ITS ---
H&P: HPI History of Present Illness Date/Time: 12/09/24 17:54 Chief Complaint: Concern for seizure Narrative: 59-year-old male history of seizures and COPD presents the hospital because family was concerned that he was going to have a seizure. No seizure reported per family. In the ED the patient states that he did not think it is going to seizure. In the ED patient complains of back pain, patient states that is chronic back pain from fracture. The side chronic back pain patient has no other complaints he denies shortness of breath nausea vomiting fever chills. Patient's lab work shows hemoglobin of 12.6, potassium of 2.7, chloride of 109, carbon dioxide 18 anion gap 16, glucose of 128, lactic acid 2.6, total bili 1.5 alkaline phos 297, UA is negative for infection. Tox screen is negative besides cannabinoids, ethanol level negative influenza A/B RSV COVID negative. Head CT shows no acute process. Chest x-ray shows bilateral pneumonia. Patient being admitted for hypokalemia and COPD exacerbation with pneumonia. Neurology consulted blood cultures pending. Review of Systems Review of Systems: 12 systems were reviewed and are negativ e except for as per HPI. [facility] Past Medical History Medical History Alcohol abuse Most recent use 10/29/2020 Chronic pain syndrome Hx of peptic ulcer as a child GERD (gastroesophageal reflux disease) History of hepatitis B Hepatocellular carcinoma COPD (chronic obstructive pulmonary disease) Cirrhosis Hepatocellular carcinoma radiation treatment Seizure Hepatic encephalopathy Surgical History Surgical History History of tibial fracture requiring surgical repair. History of cholecystectomy Family History Family History Father Hypertension Cerebrovascular accident Myocardial infarct Sibling Hypertension Sibling Hypertension Father Hypertension Cerebrovascular accident Family history of coronary artery disease Sibling Hypertension Social History Social History Social History: Smokes 1/2 ppd since 17yo. He is trying to quit. Lives at home with his and children. He is a full code. The patient had 7 children. He is on disability. The patient continues to use marijuana gummies. He no longer uses cocaine or other illicit drugs. 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 Alcohol intake: never Alcohol use details: Alcohol use noted 10/29/2020 with etoh level of 24. Substance use: current Substance use type: marijuana Other substance usage details: has not had alcohol in 16 years/ was never a heavy drinker per Last use: 12/08/24 Lack of Transportation: No Lack of Food: Never True Current Housing: I Have Housing Concerned About Future Housing: No Difficulty Paying Gas/Electric Bills: No Difficulty Paying for Meds: No Currently Unemployed: No Education: High School Diploma/GED Difficulty w/ Childcare or Family Care: No Living arrangements: with family Occupation/Education: other Gender identity (if verbalized by the patient): Male Sexual Orientation (if Verbalized by the Patient): Straight or Heterosexual Spiritual care concerns: No Agree to blood products: Yes Meds Home Medications and Allergies Home Medications ?Medication ?Instructions ?Recorded ?Confirmed ?Type gabapentin 800 mg tablet 800 mg PO QID 02/16/2012/09 History tenofovir disoproxil fumarate 300 300 mg PO DAILY 01/2912/09/24 History mg tablet tamsulosin 0.4 mg capsule 0.4 mg PO DAILY 01/11/2101/23 History hydrocodone 5 mg-acetaminophen 325 1 tablet PO TID PRN Pain, Moderate 08/13/22 12/09/24 History mg tablet albuterol sulfate 90 mcg/actuation 2 puff inhalation Q 4-6H PRN 02/22/24 12/09/24 Rx aerosol inhaler shortness of breath or wheez ing 30 days #8.5 grams ondansetron 4 mg disintegrating 4 mg PO Q6H PRN nausea and 02/22/24 12/09/24 Rx tablet vomiting 3 days #12 tabs acetaminophen 500 mg tablet 1,000 mg (2 x 500 mg) PO T ID PRN 05/07/24 12/09/24 Rx (Tylenol Extra Strength) pain #30 tabs budesonide 160 mcg-glycopyr 9 2 inh inhalation BID 01/2312/09/24 History mcg-formot 4.8 mcg/actuation HFA inhaler (Breztri Aerosphere) ferrous sulfate 325 mg (65 mg 325 mg PO DAILY 12/09/24 12/09/24 History iron) tablet (Feosol) levetiracetam 1,000 mg tablet 1,500 mg PO BID 12/09/24 12/09/24 History (Keppra) nortriptyline 10 mg capsule 10 mg PO QHS 12/09/2411/29 History pantoprazole 40 mg tablet,delayed 40 mg PO DAILY 12/0912/09/24 History release topiramate 50 mg tablet 50 mg PO Q12H 12/09/2412/09 History Allergies Allergy/AdvReac Type Severity Reaction Status Date / Time hornet venom Allergy Unknown Unknown Verified 12/09/24 15:13 strawberry Allergy Unknown Unknown Verified 12/09/24 15:13 ciprofloxacin Allergy Unknown Verified 12/09/24 15:13 fentanyl Allergy Unknown Verified 12/09/24 15:13 metronidazole AdvReac Unknown Nausea And Verified 12/09/24 15:13 Vomiting Vital Signs Vital Signs - 24 hr 12/09/24 13:56 12/09/24 14:12 12/09/24 14:59 Temperature 97.9 F Pulse Rate 70 85 Respiratory Rate 15 17 19 Blood Pressure 139/65 158/82 H Pulse Oximetry 100 100 Oxygen Delivery Room Air 12/09/24 15:16 12/09/24 15:16 12/09/24 15:44 Temperature Pulse Rate 63 62 85 Respiratory Rate 16 23 H Blood Pressure 142/68 H Pulse Oximetry 100 Oxygen Delivery 12/09/24 15:52 Temperature Pulse Rate 88 Respiratory Rate 22 H Blood Pressure Pulse Oximetry Oxygen Delivery Exam Narrative: General: Older than stated age, no acute distress HEENT: normocephalic, atraumatic. Mucous membranes moist. EOMI, PERRLA, bilateral sclera anicteric, no conjunctival injection. Neck supple without JVD, lymphadenopathy, or bruit. Respiratory: clear to ascultation bilaterally. No rales/rhonic/wheezes. Cardiovascular: Regular rate and rhythm, normal S1-S2 upon ascultation. No murmurs, rubs, or clicks. PMI is nondisplaced, capillary refill less than 3 second. Abdomen: Soft, round, no pulsatile masses, nondistended and nontender. No rebound, no guarding. Bowel sounds present to all four quadrants. No high pitch or tinkling sounds, resonant to percussion. Extremities: No cyanosis, clubbing, or edema present. Pulses are palpable 2/2. Active ROM to all four extremities. Neuro: Alert and orientated x 4. PERRLA. Cranial nerves 2-12 intact without focal deficit. Skin: Warm, dry, and intact, without rash, erythema, or lesion. Psych: Flat H&P: Results Labs Labs: Short CBC 12/09/24 Range/Units 14:55 WBC 7.7 (4.5-10.0) K/mm3 Hgb 12.6 L (14.0-18.0) g/dL Hct 36.7 L (42.0-52.0) % Plt Count 138 L D (150-375) k/mm3 BMP 12/09/24 14:55 Sodium 143 Potassium 2.7 L* Chloride 109 H Carbon Dioxide 18 L BUN 11 D Creatinine 0.86 Glucose 128 H Calcium 9.8 Cardiac Enzymes 12/09/24 Range/Units 14:55 Total Creatine Kinase 86 (55-170) U/L Liver Function 12/09/24 Range/Units 14:55 Total Bilirubin 1.5 H (0.2-1.3) mg/dL AST 37 (17-59) U/L ALT 30 (6-50) U/L Alkaline Phosphatase 279 H (38-126) U/L Albumin 4.4 (3.5-5.1) g/dL Urine 12/09/24 Range/Units 15:01 Urine Color Yellow (Yellow) Urine Appearance Turbid H (Clear) Urine pH 8.0 (5.0-9.0) Ur Specific [place] 1.016 (1.001-1.035) Urine Protein Trace (Negative) mg/dL Urine Glucose (UA) Negative (Negative) mg/dL Assessment and Plan Assessment and plan (1) Acute exacerbation of chronic obstructive pulmonary disease: Code(s): J44.1 - Chronic obstructive pulmonary disease with (acute) exacerbation Status: Acute Assessment and Plan: With pneumonia Rocephin and doxy Guaifenesin Incentive spirometer (2) Hypokalemia: Code(s): E87.6 - Hypokalemia Status: Acute Assessment and Plan: IV Potassium given in ED Repeat BMP (3) Seizure disorder: Code(s): G40.909 - Epilepsy, unspecified, not intractable, without status epilepticus Status: Acute Assessment and Plan: Neurology consulted Continue Keppra Seizure precautions (4) Lactic acid acidosis: Code(s): E87.20 - Acidosis, unspecified Status: Acute Assessment and Plan: Lactic acid on admission 2.6 Fluid bolus Repeat lactic (5) BPH (benign prostatic hyperplasia): Code(s): N40.0 - Benign prostatic hyperplasia without lower urinary tract symptoms Status: Acute Assessment and Plan: Continue Flomax (6) Depression: Code(s): F32.A - Depression, unspecified Status: Acute Assessment and Plan: Continue nortriptyline Quality VTE Prophylaxis VTE prophylaxis: mechanical ordered and pharmacologic ordered Hospitalist MIPS Advance Care Plan I have confirmed that the patient's Advanced Care Plan is present, code status is documented, or surrogate decision maker is listed in patient medical record.: Yes Medication Reconciliation I have utilized all available resources to obtain, update and review the patients current medications (includes all prescriptions, OTC, herbals, cannabis, and nutritional supplements).: Yes
[2024-12-09] MEDS: SODIUM CHLORIDE 0.9% IV 1,000 ML 125 ML IV CONT ×2 (18:22→19:25)
[2024-12-09] MEDS: POTASSIUM CHLORIDE 20 MEQ PACKET (FOR LIQUID) 40 MEQ PO (18:46)
--- NOTE | 2024-12-09 18:54 | ADMGEN ---
This patient, Ronan Baez, was admitted to Medical Room 348-01. Patient/family oriented to hospital policies and general routines including ID bracelet, bed and alarms, visiting hours, pain management, procedures, bathroom and other care routines, personal items, smoking policy, room service/diet, and visiting hours. Information on how to activate the Rapid Response Team has been discussed. Patient/Family are encouraged to report perceived risks to care and to ask questions if they do not understand what they are told or what they should do.
[2024-12-09 19:15] LABS: CRP 2.0 mg/dL (<1.0)
[2024-12-09] MEDS: DOXYCYCLINE IV 100 MG in SODIUM CHLORIDE 0.9% IV 100 ML IVPB (21:23)
[2024-12-09] MEDS: guaiFENesin 12 HR 600 MG TABCR 1200 MG PO (21:24)
[2024-12-09] MEDS: GABAPENTIN 400 MG CAPSULE 800 MG PO (21:34)
[2024-12-09] MEDS: NORTRIPTYLINE HCL 10 MG CAPSULE PO (21:34)
[2024-12-09] MEDS: TOPIRAMATE 25 MG TABLET 50 MG PO (21:35)
[2024-12-10] VITALS (9 sets, daily range): BP systolic 122–147; BP diastolic 72–74; PULSE 74–104; RESP 18–98; TEMP 36.7–36.9; O2SAT 97–98
[2024-12-10] MEDS: IPRATROPIUM 0.5 MG/ALBUTEROL SULFATE 2.5 MG (BASE) AMPUL.NEB 3 ML INHALATION ×2 (01:37→09:07)
[2024-12-10] MEDS: SODIUM CHLORIDE 0.9% IV 1,000 ML 100 ML IV CONT (05:16)
[2024-12-10] MEDS: GABAPENTIN 400 MG CAPSULE 800 MG PO ×2 (05:19→13:40)
[2024-12-10 07:48] LABS: Hematocrit 34.7 % (42.0-52.0); Hemoglobin 11.7 g/dL (14.0-18.0); Immature Granulocyte Percent A 0.5 % (0-0.5); Immature Platelet Fraction Pct 3.7 % (0.9-11.2); Lymphocytes Absolute Auto 0.55 K/mm3 (0.9-3.2); Mean Corpuscular HGB Conc 33.7 g/dl (32-36); Mean Corpuscular Hemoglobin 30.3 pg (26-34); Mean Corpuscular Volume 89.9 fl (80-100); Nucleated Red Blood Cells Absolute Auto 0.000 K/mm3 (0.0-0.012); Nucleated Red Blood Cells Perc 0.0 % (0.0-0.2); Platelet Count Result 83 k/mm3 (150-375); Red Blood Count 3.86 M/mm3 (4.6-6.20); White Blood Count 13.1 K/mm3 (4.5-10.0)
[2024-12-10] MEDS: DOXYCYCLINE IV 100 MG in SODIUM CHLORIDE 0.9% IV 100 ML IVPB (08:29)
[2024-12-10] MEDS: TAMSULOSIN HCL 0.4 MG CAPSULE PO (08:31)
[2024-12-10] MEDS: PANTOPRAZOLE 40 MG TABLET PO (08:32)
[2024-12-10] MEDS: TOPIRAMATE 25 MG TABLET 50 MG PO (08:32)
[2024-12-10] MEDS: guaiFENesin 12 HR 600 MG TABCR 1200 MG PO (08:32)
[2024-12-10 08:47] LABS: Schistocytes None Seen
[2024-12-10] MEDS: FLUTICASONE/UMECLIDIN/VILANTER 100-62.5-25 MCG ELLIPTA 1 PUFF INHALATION (09:08)
[2024-12-10] MEDS: cefTRIAXone 1 GM in SODIUM CHLORIDE 0.9% IV 50 ML 100 ML IVPB (09:38)
--- NOTE | 2024-12-10 10:25 | P.PNIM_ITS ---
Progress Note: A&P Assessment and Plan (1) Acute exacerbation of chronic obstructive pulmonary disease: Code(s): J44.1 - Chronic obstructive pulmonary disease with (acute) exacerbation Status: Acute Assessment and Plan: With pneumonia Rocephin and doxy Guaifenesin Incentive spirometer continue antibiotics IS ambulation to the chair tid (2) Hypokalemia: Code(s): E87.6 - Hypokalemia Status: Acute Assessment and Plan: IV Potassium given in ED Repeat BMP will order bmp to recheck K level add nutritional supplements as BMI 15 (3) Seizure disorder: Code(s): G40.909 - Epilepsy, unspecified, not intractable, without status epilepticus Status: Acute Assessment and Plan: Neurology consulted Continue Keppra Seizure precautions (4) Lactic acid acidosis: Code(s): E87.20 - Acidosis, unspecified Status: Acute Assessment and Plan: Lactic acid on admission 2.6 Fluid bolus Repeat lactic (5) BPH (benign prostatic hyperplasia): Code(s): N40.0 - Benign prostatic hyperplasia without lower urinary tract symptoms Status: Acute Assessment and Plan: Continue Flomax (6) Depression: Code(s): F32.A - Depression, unspecified Status: Acute Assessment and Plan: Continue nortriptyline (7) Malnourished: Code(s): E46 - Unspecified protein-calorie malnutrition Status: Acute Assessment and Plan: will add nutritional consult add nutritional supplements Time Spent With Patient Time with patient: 25 - 35 minutes Subjective Date/time seen: 12/10/24 10:25 Interval history: 59-year-old male history of seizures and COPD presents the hospital because family was concerned that he was going to have a seizure. No seizure reported per family. In the ED the patient states that he did not think it is going to seizure. In the ED patient complains of back pain, patient states that is chronic back pain from fracture. The side chronic back pain patient has no other complaints he denies shortness of breath nausea vomiting fever chills. Patient's lab work shows hemoglobin of 12.6, potassium of 2.7, chloride of 109, carbon dioxide 18 anion gap 16, glucose of 128, lactic acid 2.6, total bili 1.5 alkaline phos 297, UA is negative for infection. Tox screen is negative besides cannabinoids, ethanol level negative influenza A/B RSV COVID negative. Head CT shows no acute process. Chest x-ray shows bilateral pneumonia. Patient being admitted for hypokalemia and COPD exacerbation with pneumonia. Neurology consulted blood cultures pending. 12/10- pt is seen and examined. He remains on seizures precautions, no witness seizures so far. Neurology was consulted. He is resting in bed, no acute concerns at this time. Review of Systems Review of Systems: 12 systems were reviewed and are negativ e except for as per HPI. All systems reviewed & are unremarkable except as noted in HPI and below Exam Narrative: General: Older than stated age, no acute distress HEENT: normocephalic, atraumatic. Mucous membranes moist. EOMI, PERRLA, bilateral sclera anicteric, no conjunctival injection. Neck supple without JVD, lymphadenopathy, or bruit. Respiratory: clear to ascultation bilaterally. No rales/rhonic/wheezes. Cardiovascular: Regular rate and rhythm, normal S1-S2 upon ascultation. No murmurs, rubs, or clicks. PMI is nondisplaced, capillary refill less than 3 second. Abdomen: Soft, round, no pulsatile masses, nondistended and nontender. No rebound, no guarding. Bowel sounds present to all four quadrants. No high pitch or tinkling sounds, resonant to percussion. Extremities: No cyanosis, clubbing, or edema present. Pulses are palpable 2/2. Active ROM to all four extremities. Neuro: Alert and orientated x 4. PERRLA. Cranial nerves 2-12 intact without focal deficit. Skin: Warm, dry, and intact, without rash, erythema, or lesion. Psych: Flat Const: General: comfortable Objective Data Vital Signs Vital Signs: Vital Signs - 24 hr 12/09/24 13:56 12/09/24 14:12 12/09/24 14:59 Temperature 97.9 F Pulse Rate 70 85 Respiratory Rate 15 17 19 Blood Pressure 139/65 158/82 H Pulse Oximetry 100 100 Oxygen Delivery Room Air 12/09/24 15:16 12/09/24 15:16 12/09/24 15:44 Temperature Pulse Rate 63 62 85 Respiratory Rate 16 23 H Blood Pressure 142/68 H Pulse Oximetry 100 Oxygen Delivery 12/09/24 15:52 12/09/24 16:01 12/09/24 17:00 Temperature Pulse Rate 88 84 86 Respiratory Rate 22 H 28 H 32 H Blood Pressure 153/74 H 157/82 H Pulse Oximetry 100 98 Oxygen Delivery 12/09/24 17:31 12/09/24 18:54 12/09/24 19:39 Temperature 98.9 F Pulse Rate 69 81 90 Respiratory Rate 21 H 21 H 20 Blood Pressure 119/52 L 140/70 Pulse Oximetry 100 100 Oxygen Delivery 12/09/24 19:45 12/09/24 20:00 12/10/24 00:00 Temperature 98.4 F Pulse Rate 91 90 79 Respiratory Rate 20 18 Blood Pressure 147/74 H Pulse Oximetry 97 Oxygen Delivery 12/10/24 00:00 12/10/24 01:38 12/10/24 01:46 Temperature Pulse Rate 74 75 77 Respiratory Rate 18 18 Blood Pressure Pulse Oximetry Oxygen Delivery 12/10/24 04:00 12/10/24 06:00 12/10/24 09:09 Temperature 98.0 F Pulse Rate 89 83 89 Respiratory Rate 98 H 18 Blood Pressure 122/72 Pulse Oximetry 98 Oxygen Delivery 12/10/24 09:17 Temperature Pulse Rate 92 Respiratory Rate 18 Blood Pressure Pulse Oximetry Oxygen Delivery Intake/Output Intake/Output: Intake & Output 12/07/24 12/08/24 12/09/24 12/10/24 23:59 23:59 23:59 23:59 Intake Total 1666.7 840 Output Total 250 400 Balance 1416.7 440 Meds/Results Medications: Active Medications Generic Name Dose Route Start Last Admin Trade Name Freq PRN Reason Stop Dose Admin Acetaminophen 650 mg 12/09/24 18:03 Acetaminophen 325 Mg Tablet PO Q4H PRN Mild Pain (1-3) or Fever Albuterol/Ipratropium 3 ml 12/09/24 20:00 12/10/24 09:07 Ipratropium 0.5 Mg/Albuterol Sulfate 2.5 Mg (Base) Ampul.Neb 3 Ml INHALATION 3 ml Q6HRT JOEL Administration Enoxaparin Sodium 40 mg 12/10/24 09:00 12/10/24 08:33 Enoxaparin 40 Mg/0.4 Ml Syringe SUB-Q 40 mg DAILY JOEL Administration Fluticasone/Umeclidinium/Vilanterol 1 puff 12/10/24 08:00 12/10/24 09:08 Fluticasone/Umeclidin/Vilanter 100-62.5-25 Mcg Ellipta INHALATION 1 puff DAILYRT JOEL Administration Gabapentin 800 mg 12/09/24 22:00 12/10/24 05:19 Gabapentin 400 Mg Capsule PO 800 mg Q8HR JOEL Administration Guaifenesin 1,200 mg 12/09/24 21:00 12/10/24 08:32 Guaifenesin 12 Hr 600 Mg Tabcr PO 1,200 mg Q12HR JOEL Administration Doxycycline Hyclate 100 mg/ 100 mls @ 100 mls/hr 12/09/24 20:00 12/10/24 09:41 Sodium Chloride IVPB Infused Q12H JOEL Infusion Sodium Chloride 1,000 mls @ 100 mls/hr 12/09/24 18:05 12/10/24 05:16 Normal Saline Iv IV CONT 100 mls/hr .Q10H JOEL Administration Ceftriaxone Sodium 1 gm/ 50 mls @ 100 mls/hr 12/10/24 09:00 12/10/24 09:38 Sodium Chloride IVPB 100 mls/hr Q24H JOEL Administration Ketorolac Tromethamine 30 mg 12/09/24 17:05 Ketorolac 30 Mg/Ml Vial (*Bk) IV PUSH 12/14/24 17:04 Q6H PRN Pain Rated 4-6 Levetiracetam 1,500 mg 12/09/24 21:25 12/10/24 08:32 Levetiracetam 500 Mg Tablet PO 1,500 mg Q12HR JOEL Administration Nortriptyline HCl 10 mg 12/09/24 21:25 12/09/24 21:34 Nortriptyline Hcl 10 Mg Capsule PO 10 mg QHS JOEL Administration Pantoprazole Sodium 40 mg 12/10/24 09:00 12/10/24 08:32 Pantoprazole 40 Mg Tablet PO 40 mg DAILY JOEL Administration Prednisone 40 mg 12/10/24 08:00 12/10/24 08:32 Prednisone 20 Mg Tablet PO 40 mg DAILY@0800 JOEL Administration Tamsulosin HCl 0.4 mg 12/10/24 09:00 12/10/24 08:31 Tamsulosin Hcl 0.4 Mg Capsule PO 0.4 mg DAILY JOEL Administration Topiramate 50 mg 12/09/24 21:20 12/10/24 08:32 Topiramate 25 Mg Tablet PO 50 mg Q12HR JOEL Administration Radiology Results: ITS Impressions Chest X-Ray 12/09/24 15:00 Impression: Early bilateral pneumonia Head CT 12/09/24 16:17 Impression: 1.No acute intracranial abnormality. Labs Labs: Laboratory Results - last 24 hr 12/09/24 12/09/24 12/09/24 14:55 15:01 15:02 WBC 7.7 RBC 4.25 L Hgb 12.6 L Hct 36.7 L MCV 86.4 MCH 29.6 MCHC 34.3 RDW 16.0 H Plt Count 138 L D MPV 10.8 H Immature Gran % (Auto) 0.4 Neut % (Auto) 92.3 H Lymph % (Auto) 4.2 L [place] % (Auto) 3.0 Eos % (Auto) 0.0 Baso % (Auto) 0.1 L Lymph # (Auto) 0.32 L [place] # (Auto) 0.2 Eos # (Auto) 0.0 Baso # (Auto) 0.0 Abs Immat Gran (auto) 0.03 Absolute Neuts (auto) 7.1 H Absolute Nucleated RBC 0.000 Band Neutrophils % Nucleated RBC % 0.0 Platelet Estimate % Immature Plt Fraction 4.2 Schistocytes PT 16.3 H INR 1.3 APTT 31.3 Sodium 143 Potassium 2.7 L* Chloride 109 H Carbon Dioxide 18 L Anion Gap 16 H BUN 11 D Creatinine 0.86 Estim Creat Clear Calc 51 Estimated GFR > 60 Glucose 128 H POC Capillary Glucose 131 H Lactic Acid 2.6 H Calcium 9.8 Total Bilirubin 1.5 H AST 37 ALT 30 Alkaline Phosphatase 279 H Total Creatine Kinase 86 C-Reactive Protein Total Protein 9.5 H Albumin 4.4 Lipase 54 TSH 0.880 Urine Color Yellow Urine Appearance Turbid H Urine pH 8.0 Ur Specific [place] 1.016 Urine Protein Trace Urine Glucose (UA) Negative Urine Ketones Trace H Ur Blood (Man) Negative Urine Nitrate Negative Urine Bilirubin Negative Urine Urobilinogen 1.0 Leukocyte Esterase Rfl Negative Urine RBC 0-2 Urine WBC 0-5 Ur Squamous Epith Cells None seen Urine Bacteria None seen Urine Casts 0-2 Urine Opiates Screen Negative Urine Methadone Screen Negative Ur Barbiturates Screen Negative Ur Phencyclidine Scrn Negative Ur Amphetamine Screen Negative U Benzodiazepines Scrn Negative Urine Cocaine Screen Negative U Cannabinoids Screen Positive A Ethyl Alcohol < 10 Influenza A (RT-PCR) Negative Influenza B (RT-PCR) Negative RSV (RT-PCR) Negative SARS-CoV-2 RNA (RT-PCR) Negative 12/09/24 12/09/24 12/10/24 18:50 19:11 02:21 WBC RBC Hgb Hct MCV MCH MCHC RDW Plt Count MPV Immature Gran % (Auto) Neut % (Auto) Lymph % (Auto) [place] % (Auto) Eos % (Auto) Baso % (Auto) Lymph # (Auto) [place] # (Auto) Eos # (Auto) Baso # (Auto) Abs Immat Gran (auto) Absolute Neuts (auto) Absolute Nucleated RBC Band Neutrophils % Nucleated RBC % Platelet Estimate % Immature Plt Fraction Schistocytes PT INR APTT Sodium Potassium Chloride Carbon Dioxide Anion Gap BUN Creatinine Estim Creat Clear Calc Estimated GFR Glucose POC Capillary Glucose 102 135 H Lactic Acid 1.2 Calcium Total Bilirubin AST ALT Alkaline Phosphatase Total Creatine Kinase C-Reactive Protein 2.0 H Total Protein Albumin Lipase TSH Urine Color Urine Appearance Urine pH Ur Specific [place] Urine Protein Urine Glucose (UA) Urine Ketones Ur Blood (Man) Urine Nitrate Urine Bilirubin Urine Urobilinogen Leukocyte Esterase Rfl Urine RBC Urine WBC Ur Squamous Epith Cells Urine Bacteria Urine Casts Urine Opiates Screen Urine Methadone Screen Ur Barbiturates Screen Ur Phencyclidine Scrn Ur Amphetamine Screen U Benzodiazepines Scrn Urine Cocaine Screen U Cannabinoids Screen Ethyl Alcohol Influenza A (RT-PCR) Influenza B (RT-PCR) RSV (RT-PCR) SARS-CoV-2 RNA (RT-PCR) 12/10/24 07:42 WBC 13.1 H RBC 3.86 L Hgb 11.7 L Hct 34.7 L MCV 89.9 MCH 30.3 MCHC 33.7 RDW 16.7 H Plt Count 83 L MPV 11.3 H Immature Gran % (Auto) 0.5 Neut % (Auto) 90.0 H Lymph % (Auto) 4.2 L [place] % (Auto) 5.1 Eos % (Auto) 0.0 Baso % (Auto) 0.2 Lymph # (Auto) 0.55 L [place] # (Auto) 0.7 H Eos # (Auto) 0.0 Baso # (Auto) 0.0 Abs Immat Gran (auto) 0.07 H Absolute Neuts (auto) 11.8 H Absolute Nucleated RBC 0.000 Band Neutrophils % Not Reportable Nucleated RBC % 0.0 Platelet Estimate Decreased % Immature Plt Fraction 3.7 Schistocytes None seen PT INR APTT Sodium Potassium Chloride Carbon Dioxide Anion Gap BUN Creatinine Estim Creat Clear Calc Estimated GFR Glucose POC Capillary Glucose Lactic Acid Calcium Total Bilirubin AST ALT Alkaline Phosphatase Total Creatine Kinase C-Reactive Protein Total Protein Albumin Lipase TSH Urine Color Urine Appearance Urine pH Ur Specific [place] Urine Protein Urine Glucose (UA) Urine Ketones Ur Blood (Man) Urine Nitrate Urine Bilirubin Urine Urobilinogen Leukocyte Esterase Rfl Urine RBC Urine WBC Ur Squamous Epith Cells Urine Bacteria Urine Casts Urine Opiates Screen Urine Methadone Screen Ur Barbiturates Screen Ur Phencyclidine Scrn Ur Amphetamine Screen U Benzodiazepines Scrn Urine Cocaine Screen U Cannabinoids Screen Ethyl Alcohol Influenza A (RT-PCR) Influenza B (RT-PCR) RSV (RT-PCR) SARS-CoV-2 RNA (RT-PCR) Quality VTE Prophylaxis VTE prophylaxis: mechanical ordered and pharmacologic ordered
[2024-12-10 12:22] LABS: Alanine Aminotransferase 26 U/L (6-50); Albumin Level 3.9 g/dL (3.5-5.1); Alkaline Phosphatase 213 U/L (38-126); Anion Gap 14 mmol/L (4-12); Aspartate Amino Transferase 34 U/L (17-59); Bilirubin,Total 0.9 mg/dL (0.2-1.3); Blood Urea Nitrogen 9 mg/dL (9-20); Calcium 9.2 mg/dL (8.4-10.2); Carbon Dioxide 15 mmol/L (22-30); Chloride 113 mmol/L (98-107); Estimated CRCL calculation 66 ml/min; Estimated Glomerular Filt Rate > 60; Glucose 87 mg/dL (65-110); Potassium 3.4 mmol/L (3.4-5.0); Sodium 142 mmol/L (137-145); Total Protein 8.0 g/dL (6.3-8.2)
[2024-12-10] MEDS: KETOROLAC 30 MG/ML VIAL (*BKC) IV PUSH (13:27)
--- NOTE | 2024-12-10 14:04 | WPDNEURCNPN ---
Assessment and Plan Assessment and plan (1) Seizure disorder: Code(s): G40.909 - Epilepsy, unspecified, not intractable, without status epilepticus Status: Acute (2) History of cirrhosis: Code(s): Z87.19 - Personal history of other diseases of the digestive system Status: Acute (3) Hepatocellular carcinoma: Code(s): C22.0 - Liver cell carcinoma Status: Acute (4) COPD (chronic obstructive pulmonary disease): Code(s): J44.9 - Chronic obstructive pulmonary disease, unspecified Status: Acute Plan As mentioned above the patient is under care of a neurologist at [facility]. He also follows with a cancer doctor over there since he was diagnosed to hepatocellular carcinoma in the past. The patient is currently on Keppra 1500 mg twice a day. It also appears that he might have had 5-10 seizures the last 1 year and he saw the neurologist at [facility] in September but he does not know exactly what was advised. He is taking Topamax 50 mg twice a day most likely for headaches. He is concerned that although he is very hungry he cannot gain any weight. I would suggest an EEG and continue the current dose of Keppra and and probably also care Topamax although it should be noted the Topamax can lead to weight loss. I will also go ahead and order an MRI of the brain with and without contrast in view of his frequent admissions to this hospital on account of seizures. Apparently seizures started after head trauma in 2019 but they did not started on 20/04. It is not uncommon for posttraumatic seizures to start with 2 years of injury. He requires follow-up for seizures regularly. Consult date: 12/10/24 HPI: Ronan Baez is a 59 year old male with history of seizure disorder 5 years following a head trauma in 2019 at home accidentally and has had seizures. He states that he has had 5-10 seizures in the last 1 year. The last seizure occurred 2 days ago where he was staring blankly. He did not have any tongue biting or fall or any incontinence of urine. No eyewitness account available at this time. Patient lives his and further information can be obtained from her when she is available however patient goes to see a neurologist at [facility] and he saw them in September. He does not know what exactly was advised at the time. He also does not know he had MRI of brain or EEG in the past. He has history of hepatocellular cancer for which she was treated at [facility] with the radiation. He there is also history of hepatitis-B. He has been on Keppra 1500 mg twice a day and Topamax 50 mg twice a day. Started to have a lot of headache after the head trauma due to something falling on his head at home 2019. There is also history of chronic pain including lower back pain and chronic obstructive pulmonary disease. According to the patient the seizures have never been fully controlled. Previous records from [facility] were reviewed. Here several CT scan of brain which did not show any significant abnormality. I do not see results of an EEG or MRI on record h Most recent CT scan of brain was performed yesterday which did not show any significant abnormal findings. This study was done without contrast. There is also reference to chronic alcohol use however his has a stated that he never drank too much. In 1 of the admission his alcohol level was 24 in 2020. Review of Systems Review of Systems: Patient states that he is feeling very well and is wondering when he can go home All systems reviewed & are unremarkable except as noted in HPI and below PMFSH Past Medical History Medical History Alcohol abuse Most recent use 10/29/2020 Chronic pain syndrome Hx of peptic ulcer as a child GERD (gastroesophageal reflux disease) History of hepatitis B Hepatocellular carcinoma COPD (chronic obstructive pulmonary disease) Cirrhosis Hepatocellular carcinoma radiation treatment Seizure Hepatic encephalopathy Surgical History Surgical History History of tibial fracture requiring surgical repair. History of cholecystectomy Family History Family History Father Hypertension Cerebrovascular accident Myocardial infarct Sibling Hypertension Sibling Hypertension Father Hypertension Cerebrovascular accident Family history of coronary artery disease Sibling Hypertension Social History Social History Social History: Smokes 1/2 ppd since 17yo. He is trying to quit. Lives at home with his and children. He is a full code. The patient had 7 children. He is on disability. The patient continues to use marijuana gummies. He no longer uses cocaine or other illicit drugs. 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 Alcohol intake: never Alcohol use details: Alcohol use noted 10/29/2020 with etoh level of 24. Substance use: current Substance use type: marijuana Other substance usage details: has not had alcohol in 16 years/ was never a heavy drinker per Last use: 12/08/24 Lack of Transportation: No Lack of Food: Never True Current Housing: I Have Housing Concerned About Future Housing: No Difficulty Paying Gas/Electric Bills: No Difficulty Paying for Meds: No Currently Unemployed: No Education: High School Diploma/GED Difficulty w/ Childcare or Family Care: No Living arrangements: with family Occupation/Education: other Gender identity (if verbalized by the patient): Male Sexual Orientation (if Verbalized by the Patient): Straight or Heterosexual Spiritual care concerns: No Agree to blood products: Yes Meds Home Medications and Allergies Home Medications ?Medication ?Instructions ?Recorded ?Confirmed ?Type gabapentin 800 mg tablet 800 mg PO QID 02/16/20 12/09/24 History tenofovir disoproxil fumarate 300 300 mg PO DAILY 02/16/20 12/09/24 History mg tablet tamsulosin 0.4 mg capsule 0.4 mg PO DAILY 01/11/21 12/09/24 History hydrocodone 5 mg-acetaminophen 325 1 tablet PO TID PRN Pain, Moderate 08/13/22 12/09/24 History mg tablet albuterol sulfate 90 mcg/actuation 2 puff inhalation Q4-6H PRN 02/22/24 12/09/24 Rx aerosol inhaler shortness of breath or wheezing 30 days #8.5 grams ondansetron 4 mg disintegrating 4 mg PO Q6H PRN nausea and 02/22/24 12/09/24 Rx tablet vomiting 3 days #12 tabs acetaminophen 500 mg tablet 1,000 mg (2 x 500 mg) PO TID PRN 05/07/24 12/09/24 Rx (Tylenol Extra Strength) pain #30 tabs budesonide 160 mcg-glycopyr 9 2 inh inhalation BID 12/09/24 12/09/24 History mcg-formot 4.8 mcg/actuation HFA inhaler (Breztri Aerosphere) ferrous sulfate 325 mg (65 mg 325 mg PO DAILY 12/09/24 12/09/24 History iron) tablet (Feosol) levetiracetam 1,000 mg tablet 1,500 mg PO BID 12/09/24 12/09/24 History (Keppra) nortriptyline 10 mg capsule 10 mg PO QHS 12/09/24 12/09/24 History pantoprazole 40 mg tablet,delayed 40 mg PO DAILY 12/09/24 12/09/24 History release topiramate 50 mg tablet 50 mg PO Q12H 12/09/24 12/09/24 History Allergies Allergy/AdvReac Type Severity Reaction Status Date / Time hornet venom Allergy Unknown Unknown Verified 12/09/24 15:13 strawberry Allergy Unknown Unknown Verified 12/09/24 15:13 ciprofloxacin Allergy Unknown Verified 12/09/24 15:13 fentanyl Allergy Unknown Verified 12/09/24 15:13 metronidazole AdvReac Unknown Nausea And Verified 12/09/24 15:13 Vomiting Vital Signs Vital Signs - 24 hr 12/09/24 14:12 12/09/24 14:59 12/09/24 15:16 Temperature Pulse Rate 85 63 Respiratory Rate 17 19 Blood Pressure 158/82 H Pulse Oximetry 100 12/09/24 15:16 12/09/24 15:44 12/09/24 15:52 Temperature Pulse Rate 62 85 88 Respiratory Rate 16 23 H 22 H Blood Pressure 142/68 H Pulse Oximetry 100 12/09/24 16:01 12/09/24 17:00 12/09/24 17:31 Temperature Pulse Rate 84 86 69 Respiratory Rate 28 H 32 H 21 H Blood Pressure 153/74 H 157/82 H 119/52 L Pulse Oximetry 100 98 100 12/09/24 18:54 12/09/24 19:39 12/09/24 19:45 Temperature 98.9 F Pulse Rate 81 90 91 Respiratory Rate 21 H 20 20 Blood Pressure 140/70 Pulse Oximetry 100 12/09/24 20:00 12/10/24 00:00 12/10/24 00:00 Temperature 98.4 F Pulse Rate 90 79 74 Respiratory Rate 18 Blood Pressure 147/74 H Pulse Oximetry 97 12/10/24 01:38 12/10/24 01:46 12/10/24 04:00 Temperature Pulse Rate 75 77 89 Respiratory Rate 18 18 Blood Pressure Pulse Oximetry 12/10/24 06:00 12/10/24 09:09 12/10/24 09:17 Temperature 98.0 F Pulse Rate 83 89 92 Respiratory Rate 98 H 18 18 Blood Pressure 122/72 Pulse Oximetry 98 Exam Const: General: cooperative and comfortable HENMT: Head: atraumatic Mouth: Yes oropharynx normal Eyes: Alignment and Position: alignment normal and position normal EOM: EOMs intact bilaterally Neck: Neck: normal visual inspection and supple Resp: Effort & Inspection: normal respiratory effort Cardio: Heart sounds: S1 normal heart sound present and S2 normal heart sound present Skin: General skin exam: normal color Neuro: Cranial nerves: Yes CN's II-XII intact bilaterally, Yes facial symmetry and Yes Midline tongue present Speech: normal speech Motor exam (neuro): 5/5 motor strength present throughout and Normal motor muscle tone present throughout Sensory Exam: normal sensation Coordination: [id number] test normal and Normal rapid alternating movements of the distal upper extremity present (Neuro) Extrem: General: normal to inspection Psych: Mental Status: mental status grossly normal Results Labs 12/10/24 07:42 12/10/24 12:05 Labs: Short CBC 12/09/24 12/10/24 Range/Units 14:55 07:42 WBC 7.7 13.1 H (4.5-10.0) K/mm3 Hgb 12.6 L 11.7 L (14.0-18.0) g/dL Hct 36.7 L 34.7 L (42.0-52.0) % Plt Count 138 L D 83 L (150-375) k/mm3 BMP 12/09/24 12/10/24 14:55 12:05 Sodium 143 142 Potassium 2.7 L* 3.4 Chloride 109 H 113 H Carbon Dioxide 18 L 15 L BUN 11 D 9 Creatinine 0.86 0.67 L Glucose 128 H 87 Calcium 9.8 9.2 Cardiac Enzymes 12/09/24 Range/Units 14:55 Total Creatine Kinase 86 (55-170) U/L Liver Function 12/09/24 12/10/24 Range/Units 14:55 12:05 Total Bilirubin 1.5 H 0.9 (0.2-1.3) mg/dL AST 37 34 (17-59) U/L ALT 30 26 (6-50) U/L Alkaline Phosphatase 279 H 213 H (38-126) U/L Albumin 4.4 3.9 (3.5-5.1) g/dL Urine 12/09/24 Range/Units 15:01 Urine Color Yellow (Yellow) Urine Appearance Turbid H (Clear) Urine pH 8.0 (5.0-9.0) Ur Specific [place] 1.016 (1.001-1.035) Urine Protein Trace (Negative) mg/dL Urine Glucose (UA) Negative (Negative) mg/dL
--- NOTE | 2024-12-10 16:38 | PC.NURSE ---
Informed provider that patient wanted to leave AMA, Provider was already gone from facility and was unable to sigh paperwork.
--- NOTE | 2024-12-11 11:48 | P.DS_ITS ---
DS: Admitting Diagnosis Discharge Date 12/10/24 Admitting Diagnosis possible pneumonia DS: Discharge Diagnosis Discharge Diagnosis (1) Acute exacerbation of chronic obstructive pulmonary disease: Code(s): J44.1 - Chronic obstructive pulmonary disease with (acute) exacerbation Status: Acute (2) Hypokalemia: Code(s): E87.6 - Hypokalemia Status: Acute (3) Seizure disorder: Code(s): G40.909 - Epilepsy, unspecified, not intractable, without status epilepticus Status: Acute (4) Lactic acid acidosis: Code(s): E87.20 - Acidosis, unspecified Status: Acute (5) BPH (benign prostatic hyperplasia): Code(s): N40.0 - Benign prostatic hyperplasia without lower urinary tract symptoms Status: Acute (6) Depression: Code(s): F32.A - Depression, unspecified Status: Acute (7) Malnourished: Code(s): E46 - Unspecified protein-calorie malnutrition Status: Acute DS: Summary Hospital Course Hospital Course: 59-year-old male history of seizures and COPD presents the hospital because family was concerned that he was going to have a seizure. No seizure reported per family. In the ED the patient states that he did not think it is going to seizure. In the ED patient complains of back pain, patient states that is chronic back pain from fracture. The side chronic back pain patient has no other complaints he denies shortness of breath nausea vomiting fever chills. Patient's lab work shows hemoglobin of 12.6, potassium of 2.7, chloride of 109, carbon dioxide 18 anion gap 16, glucose of 128, lactic acid 2.6, total bili 1.5 alkaline phos 297, UA is negative for infection. Tox screen is negative besides cannabinoids, ethanol level negative influenza A/B RSV COVID negative. Head CT shows no acute process. Chest x-ray shows bilateral pneumonia. Patient being admitted for hypokalemia and COPD exacerbation with pneumonia. Neurology consulted blood cultures pending. Pt was going to see neurologit and BC still pending. BUt i was called later in acacia evening that pt is going to sign out AMA, unclear reasoning. Will send antibiotics and 5 days K supplements he needs to have cbc,bmp rechecked and need a close f/u with pcp/neurologist. Status at Discharge Functional status at discharge: independent ambulation Overall status at discharge: other (left AMA) Time Spent with Patient Time attestation: Total time spent providing and/or coordinating discharge services: Time spent: Less than 30 minutes Exam Narrative: pt was not examined prior to discharge per this provider as he left ama in the evening. DS: Data Data Completed and Pending Labs on day of discharge: Labs from last 24 hours 12/10/24 12/10/24 12:14 12:05 Sodium 142 Potassium 3.4 Chloride 113 H Carbon Dioxide 15 L Anion Gap 14 H BUN 9 Creatinine 0.67 L Estim Creat Clear Calc 66 Estimated GFR > 60 Glucose 87 POC Capillary Glucose 94 Calcium 9.2 Total Bilirubin 0.9 AST 34 ALT 26 Alkaline Phosphatase 213 H Total Protein 8.0 Albumin 3.9 Discharge Plan Discharge Attending physician on discharge: Luis Miguel Keller Oca Consulting providers: Ross Hightower Discharging Clinician: Adrienne Melchor Patient Disposition: Left Against Medical Advice Activity: june shower Diet: heart healthy Patient Instructions: How to Stop Smoking (DC) Patient Language: Cook Islander Discharge Medications: New potassium chloride 20 mEq packet 20 meq PO DAILY Qty: 5 0RF cefdinir 300 mg capsule 300 mg PO Q12H Qty: 8 0RF Continued ondansetron 4 mg tablet,disintegrating 4 mg PO Q6H PRN (Reason: nausea and vomiting) 3 Days Qty: 12 0RF albuterol sulfate 90 mcg/actuation HFA aerosol inhaler 2 puff inhalation Q4-6H PRN (Reason: shortness of breath or wheezing) 30 Days Qty: 8.5 0RF hydrocodone-acetaminophen 5-325 mg tablet 1 tablet PO TID PRN (Reason: Pain, Moderate) tamsulosin 0.4 mg capsule 0.4 mg PO DAILY acetaminophen [Tylenol Extra Strength] 500 mg tablet 1,000 mg PO TID PRN (Reason: pain) Qty: 30 0RF nortriptyline 10 mg capsule 10 mg PO QHS pantoprazole 40 mg tablet,delayed release (DR/EC) 40 mg PO DAILY topiramate 50 mg tablet 50 mg PO Q12H Breztri Aerosphere 160-9-4.8 mcg/actuation HFA aerosol inhaler 2 inh inhalation BID levetiracetam [Keppra] 1,000 mg tablet 1,500 mg PO BID ferrous sulfate [Feosol] 325 mg (65 mg iron) tablet 325 mg PO DAILY gabapentin 800 mg Tablet 800 mg PO QID tenofovir disoproxil fumarate 300 mg Tablet 300 mg PO DAILY Date of admission: 12/09/24 17:05 Primary Care Provider: Jn,Roxy Quevedo Admitting Provider: Aroldo Austin Attending physician on admission: Aroldo Austin Condition: Stable Quality VTE Prophylaxis VTE prophylaxis: mechanical ordered and pharmacologic ordered
== END 2024-12-10 15:25 | disposition left against medical advice (07) ==
LOC: ANHED 15:05 → ANH3MED 18:01
PROVIDERS: Nurse Practitioner; Nurse Practitioner Gerontology; Admitting Provider Internal Medicine; Emergency Provider Registered Nurse; Visit Provider Student in an Organized Health Care Education/Training Program
DX: G40.909 Epilepsy, unspecified, not intractable, without status epilepticus (principal); J18.9 Pneumonia, unspecified organism; E86.0 Dehydration; E87.6 Hypokalemia; R41.82 Altered mental status, unspecified; J44.9 Chronic obstructive pulmonary disease, unspecified; F17.210 Nicotine dependence, cigarettes, uncomplicated; K31.84 Gastroparesis; F12.90 Cannabis use, unspecified, uncomplicated; Z20.822 Contact with and (suspected) exposure to COVID-19
CPT/HCPCS: 36415; 70450; 71045; 80053; 80307; 81001; 82077; 82550; 82948; 83605; 83690; 84443; 85025; 85055; 85610; 85730; 86140; 87040; 87637; 93005; 94640; 96361; 96365; 96366; 96367; 96375; 96376; 99285; A9270; G0378; J0696; J1200; J1650; J1790; J1885; J2919; J3480; J7030; J7512

== ENCOUNTER 2025-01-29 14:10 | Observation (INO) | payer MEDICARE, MEDICAID, SELFPAY ==
[2025-01-29] VITALS (8 sets, daily range): BP systolic 134–173; BP diastolic 43–85; PULSE 76–103; RESP 16–31; TEMP 36.7–36.8; O2SAT 94–100; BMI 16.2
--- NOTE | ~2025-01-29 | CT_ITS ---
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 Technique: Axial images obtained of the brain without contrast. One or more of the following dose reduction techniques were used: automated exposure control, adjustment of the mA and/or kV according to patient size, use of iterative reconstruction technique. Findings: No acute infarct or parenchymal hemorrhage. No abnormal mass or mass effect. No midline shift. No extra-axial fluid collections. No hydrocephalus. Mastoid air cells unremarkable. Sinuses and orbits unremarkable. No acute fracture. No significant facial or scalp soft tissue swelling evident. No radiopaque foreign body is seen. Impression: 1. Motion artifact limits evaluation. No acute infarct or hemorrhage Reviewed, dictated and finalized at location P. UCTION ENGINE REPAIRER Impression: 1. Motion artifact limits evaluation. No acute infarct or hemorrhage
--- NOTE | 2025-01-29 14:16 | ECG_ITS ---
Test Date: 2025-01-29 14:20:59 Measurements Intervals [place] Rate: 69 P: 80 OR: 148 QRS: 63 QRSD: 89 T: 69 QT: 431 QTc: 463 Interpretive Statements SINUS RHYTHM MINIMAL Q WAVES- ANTEROLATERAL LEADS BASELINE ARTIFACT- I, II, III, AVR, AVL, AVF, V2 BORDERLINE ECG Compared to ECG 12/09/2024 14:08:25 NO SIGNIFICANT CHANGE Electronically Signed On 01-29-2025 14:31:39 CRATING AND MOVING ESTIMATOR by Davidson Juarez D.O.
[2025-01-29] MEDS: levETIRAcetam 1500MG/NACL100ML 1,500 MG/100 ML BAG 400 MG IVPB ×2 (14:48→18:49)
[2025-01-29] MEDS: SODIUM CHLORIDE 0.9% IV 50 ML 100 ML (14:48)
--- OUTSIDE RECORDS SUMMARY | 2025-01-29 15:34 | XMS_ITS | Encounter Summary ---
Author Organization [facility] Healthcare Address [address] [place] [address] Care Team Providers Care Mushroom Cutter Name Role Phone Jazmin Shankar MD Primary Care Provider [phone] Cedrick Barriga MD Primary Care Provider [phone] Unknown, Notinfile Primary Care Provider Unavail able Cedrick Barriga MD Primary Care Provider [phone] Cedrick Barriga MD Unavailable [phone] Olya Corcoran RN Unavailable [phone] Dequan Frye MD Unavailable [phone] Lian Melchor MD Primary Care Provider Encounter Details Date Type Department Care Team (Late st Contact Info) Description 06/24/2020 Telephone [facility] [address] [place] [address] Rj Johnson, RT Social History Tobacco Use Types Packs/Day Years Used Date Smoking Tobacco: Every Day Cigarettes 0.2 42.9 Started: 1982 Smokeless Tobacco: Never Comments:trying to quit-smok ing Alcohol Use Standard Drinks/Week Comments Not Currently 0 (1 standard drink = 0.6 oz pur e alcohol) denies Sex and Gender Information Value Date Recorded Sex Assigned at Not on file Legal Sex Male 2:43 AM DEBIT AGENT Gender Identity Not on file Sexual Orientation Not on file documented as of this encounter Functional Status documented as of this encounter Plan of [...] COVID: Suspected 03/01/2023 03/01/2023 03/01/2023 10:12 PM DEBIT AGENT RSV, droplet 03/01/2023 03/01/2023 03/08/2023 3:05 AM DEBIT AGENT documented as of this encounter Care Teams Mushroom Cutter Relationship Specialty Start Date End Date Jazmin Shankar MD PCP - General Family Medicine 08/09/18 12/23/20 Cedrick Barriga MD [address] [place] [address] PCP - General 12/24/20 07/19/22 Unknown, Notinfile PCP - General 07/20/22 07/20/22 Cedrick Barriga MD [address] [place] [address] PCP - General Family Medicine 07/21/22 11/12/22 Lian Melchor MD [address] [place] [id number] PCP - General Gastroenterology 11/13/22 Cedrick Barriga MD [address] [place] [id number] 07/20/22 08/11/22 Olya Corcoran RN Virtualization Consultant 08/10/1812/09 Dequan Frye MD Referring Physician Transplant Hepatology 08/19/18 documented as of this encounter
--- OUTSIDE RECORDS SUMMARY | 2025-01-29 15:34 | XMS_ITS | Data Portability ---
Author Organization [facility] Address [address] [place] [address] Assessment No assessment recorded. Plan of Treatment Reminders Order Date Submit Date Provider Last Modified By Organization Details Last Modified Time Details Appointments None recorded. Lab CMP, serum or plasma 2023 024 [place] [facility], [address], [address], [place], [address], 4 10:15:30 CBC 2023 024 [place] [facility], [address], [address], [place], [address], 4 10:15:31 Referral pain management referral - all i have on this patient in the emr i have went back as far as i can 2024 025 [facility], [address] [facility] [address], [address], [place], [address], 5 04:19:13 neurologist referral 2024 025 [facility], [facility] , [address], [place], [address], 5 04:18:00 hematologis t referral - Cirrhosis associated with HBV. Chronic low plt count 2023 024 KO Pacheco MD, [address], [place], [address], 4 09:12:50 gastroenter ologist referral - Chronic liver disease/HCC /HBV. Was on xplant list at [facility] 2023 024 [facility], [address] [facility], [place], [address], 5 11:01:23 Procedures None recorded. Surgeries None recorded. Imaging None recorded. Medication Orders topiramate 50 mg tablet 2024 025 [facility] [address], [place], [address], 5 12:08:30 hydrocodone 5 mg-acetamin ophen 325 mg tablet 2024 025 [facility] [address] [facility], [place], [address], 5 12:08:32 tamsulosin 0.4 mg capsule 2024 025 [facility] [address] [facility], [place], [address], 5 12:08:31 hydrocodone 5 mg-acetamin ophen 325 mg tablet 2024 025 [facility] [address] [facility], [place], [address], 5 13:38:07 ondansetron 4 mg disintegrat ing tablet 2024 025 [facility] [address] [place], [address], 5 17:45:12 hydrocodone 5 mg-acetamin ophen 325 mg tablet 2024 025 [facility] [address] [place], [address], 5 17:10:44 Patient TargetsNo targets recorded. Patient Instructions Encounter Date Encounter Id Patient Instructions Last Modified By Organization Details Last Modified Time 09/21/2023 [id number] chronic obstructive pulmonary disease (COPD): care instructions [email or web address] Not available 09/21/2023 13:22:30 deciding about using medicines to quit smoking [email or web address] Not available 09/21/2023 13:22:31 Quitting Tobacco : Care Instructions [email or web address] Not available 09/21/2023 13:22:31 esophageal varices: care instructions [email or web address] Not available 09/21/2023 13:22:31 cirrhosis: care instructions [email or web address] Not available 09/21/2023 13:22:31 liver disease diet: care instructions [email or web address] Not available 09/21/2023 13:22:31 03/22/2024 [id number] deciding about using medicines to quit smoking [email or web address] Not available 03/22/2024 17:10:35 Quitting Tobacco : Care Instructions [email or web address] Not available 03/22/2024 17:10:35 hepatitis B: car e instructions Not available 03/22/2024 17:10:35 cirrhosis: care instructions [email or web address] Not available 03/22/2024 17:10:35 liver disease diet: care instructions [email or web address] Not available 03/22/2024 17:10:35 chronic obstructive pulmonary disease (COPD): care instructions Not available 03/22/2024 17:10:35 learning about copd and how to prevent lung infections [email or web address] Not available 03/22/2024 17:10:35 nausea and vomiting: care instructions [email or web address] Not available 03/22/2024 17:45:07 06/21/2024 [id number] deciding about using medicines to quit smoking [email or web address] Not available 06/21/2024 13:39:04 Quitting Tobacco : Care Instructions [email or web address] Not available 06/21/2024 13:39:04 chronic obstructive pulmonary disease (COPD): care instructions [email or web address] Not available 06/21/2024 13:39:04 learning about copd and how to prevent lung infections [email or web address] Not available 06/21/2024 13:39:04 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 Was on xplant list at [facility] Referring Physician: Lian Melchor, Internal Medicine, Encounter Date: 09/21/2023 Cirrhosis associated with HB V. Chronic low plt count Referring Physician: Lian Melchor, Internal Medicine, Encounter Date: 10/12/2023 Neurologist Referral for Par esthesia Generalized numbness tingling Referring Physician: Lian Melchor, Internal Medicine, Encounter Date: 03/22/2024 Pain Management Referral for Chronic back pain all i have on this patient in the emr i have went back as far as i can Referring Physician: Lian Melchor, Internal Medicine, Encounter Date: 08/15/2024 Results Created Date Observation Date Name Description Value Unit Range Abnormal Flag Note LastModifiedBy Organization Detail LastModifiedTime 09/21/1909/22/2023 COMP. METAB OLIC PANEL (14) glucose 97 mg/dL 70-99 Not Available [facility] ([facility]) [address] [place], [address], 09/22/2023 10:15:30 09/21/19 24 09/22/2023 COMP. METAB OLIC PANEL (14) BUN 16 mg/dL 8-27 Not Available [facility] ([facility]) [address] [place], [address], 09/22/2023 10:15:30 09/21/19 24 09/22/2023 COMP. METAB OLIC PANEL (14) creatinine 0.88 mg/dL 0.76-1 .27 Not Available [facility] ([facility]) [address] [place], [address], 09/22/2023 10:15:30 09/21/19 24 09/22/2023 COMP. METAB OLIC PANEL (14) eGFR 98 mL/mi n/1.7 3 >59 Not Available [facility] ([facility]) [address] [place], [address], 09/22/2023 10:15:30 09/21/19 24 09/22/2023 COMP. METAB OLIC PANEL (14) BUN/creatini ne ratio 18 10-24 Not Available [facility] ([facility]) [address] [facility], [place], [address], 09/22/2023 10:15:30 09/21/19 24 09/22/2023 COMP. METAB OLIC PANEL (14) sodium 144 mmol/ L 134-14 4 Not Available [facility] ([facility]) [address] [facility], [place], [address], 09/22/2023 10:15:30 09/21/19 24 09/22/2023 COMP. METAB OLIC PANEL (14) potassium 5.2 mmol/ L 3.5-5. 2 Not Available [facility] ([facility]) [address] [facility], [place], [address], 09/22/2023 10:15:30 09/21/19 24 09/22/2023 COMP. METAB OLIC PANEL (14) chloride 106 mmol/ L 96-106 Not Available [facility] ([facility]) [address] [facility], [place], [address], 09/22/2023 10:15:30 09/21/19 24 09/22/2023 COMP. METAB OLIC PANEL (14) carbon dioxide, total 23 mmol/ L 20-29 Not Available [facility] ([facility]) [address] [place], [address], 09/22/2023 10:15:30 09/21/19 24 09/22/2023 COMP. METAB OLIC PANEL (14) calcium 9.8 mg/dL 8.6-10 .2 Not Available [facility] ([facility]) [address] [place], [address], 09/22/2023 10:15:30 09/21/19 24 09/22/2023 COMP. METAB OLIC PANEL (14) protein, total 7.7 g/dL 6.0-8. 5 Not Available [facility] ([facility]) [address], [place], [address], 09/22/2023 10:15:30 09/21/19 24 09/22/2023 COMP. METAB OLIC PANEL (14) albumin 4.6 g/dL 3.8-4. 9 Not Available [facility] ([facility]) [address], [place], [address], 09/22/2023 10:15:30 09/21/19 24 09/22/2023 COMP. METAB OLIC PANEL (14) globulin, total 3.1 g/dL 1.5-4. 5 Not Available [facility] ([facility]) [address], [place], [address], 09/22/2023 10:15:30 09/21/19 24 09/22/2023 COMP. METAB OLIC PANEL (14) bilirubin, total 0.8 mg/dL 0.0-1. 2 Not Available [facility] ([facility]) [address] [facility], [place], [address], 09/22/2023 10:15:30 09/21/19 24 09/22/2023 COMP. METAB OLIC PANEL (14) alkaline phosphatase 107 IU/L 44-121 Not Available [facility] ([facility]) [address] [facility], [place], [address], 09/22/2023 10:15:30 09/21/19 24 09/22/2023 COMP. METAB OLIC PANEL (14) AST (SGOT) 33 IU/L 0-40 Not Available [facility] ([place] [facility]) [address] [facility], [place], [address], 09/22/2023 10:15:30 09/21/19 24 09/22/2023 COMP. METAB OLIC PANEL (14) ALT (SGPT) 25 IU/L 0-44 Not Available [facility] ([facility]) [address] [facility], [place], [address], 09/22/2023 10:15:30 09/21/19 24 09/22/2023 CBC, PLATE LET, NO DIFFE RENTI AL WBC 4.4 x10e3 /uL 3.4-10 .8 Not Available [facility] ([facility]) [address] [facility], [place], [address], 09/22/2023 10:15:31 09/21/1909/22/2023 CBC, PLATE LET, NO DIFFE RENTI AL RBC 4.30 x10e6 /uL 4.14-5 .80 Not Available [facility] ([facility]) [address] [facility], [place], [address], 09/22/2023 10:15:31 09/21/1909/22/2023 CBC, PLATE LET, NO DIFFE RENTI AL hemoglobin 13.8 g/dL 13.0-1 7.7 Not Available [facility] ([facility]) [address] [facility], [place], [address], 09/22/2023 10:15:31 09/21/1909/22/2023 CBC, PLATE LET, NO DIFFE RENTI AL hematocrit 39.1 % 37.5-5 1.0 Not Available [facility] ([facility]) [address] [facility], [place], [address], 09/22/2023 10:15:31 09/21/1909/22/2023 CBC, PLATE LET, NO DIFFE RENTI AL MCV 91 fL 79-97 Not Available [facility] ([facility]) [address] [place], [address], 09/22/2023 10:15:31 09/21/1909/22/2023 CBC, PLATE LET, NO DIFFE RENTI AL MCH 32.1 pg 26.6-3 3.0 Not Available [facility] ([facility]) [address] [place], [address], 09/22/2023 10:15:31 09/21/19 24 09/22/2023 CBC, PLATE LET, NO DIFFE RENTI AL MCHC 35.3 g/dL 31.5-3 5.7 Not Available [facility] ([facility]) [address] [facility], [place], [address], 09/22/2023 10:15:31 09/21/1909/22/2023 CBC, PLATE LET, NO DIFFE RENTI AL RDW 14.4 % 11.6-1 5.4 Not Available [facility] ([facility]) [address] [facility], [place], [address], 09/22/2023 10:15:31 09/21/1909/22/2023 CBC, PLATE LET, NO DIFFE RENTI AL platelets 82 x10e3 /uL 150-45 0 alert low Plate let count verif ied by exami natio n of perip heral blood smear . Not Available [facility] ([facility]) [address] [facility], [place], [address], 09/22/2023 10:15:31 09/21/1909/22/2023 CBC, PLATE LET, NO DIFFE RENTI AL hematology comments: NOTE: Verif ied by micro scopi c exami natio n. Not Available [facility] ([facility]) [address] [facility], [place], [address], 09/22/2023 10:15:31 09/21/19 24 09/26/2023 COMPL IANCE [...] and delta -8-te trahy droca nnabi nol. [place] codon e 708 ng/mg creat [place] morph one 50 ng/mg creat Dihyd rocod eine 66 ng/mg creat Norhy droco done 1809 ng/mg creat Sourc es of hydro codon e inclu de sched uled presc ripti on medic ation s. [place] morph one, dihyd rocod eine and norhy droco done are expec kait metab olite s of hydro codon e. [place] morph one and dihyd rocod eine are [...] pam consu ltati on, pleas e call [phone]. ===== ===== ===== ===== ===== ===== ===== ===== ===== ===== ===== ===== ===== === Not Available [facility] ([facility]) [address] [facility], [place], [address], 09/26/2023 15:08:12 09/21/19 24 09/26/2023 COMPL IANCE DRUG EVELYN SIS, UR pdf . Not Available [facility] ([facility]) [address] [facility], [place], [address], 09/26/2023 15:08:12 04/10/19 25 04/10/2024 Lacta te [...] Rapid immun oassa y reagent lot number [id number] normal Not Available Not Available 04/01 21:51:04 [...] [presence] in urine by test strip [facility] torstarr test findin g text: negati ve normal [...] Not Available 04/11/2024 21:51:03 04/10/19 25 04/10/2024 [facility] [place] amandeep [employer] olic 1999 panel - Serum or Plasm a chloride [moles/volum e] in serum or plasma 108 mmol/ L low: 98mmol /Lhigh : 107mmo l/L high Not Available Not Available 04/11/2024 21:51:03 04/10/19 25 04/10/2024 [facility] [employer] amandeep metab olic 1999 panel - Serum or Plasm a carbon dioxide, total [moles/volum e] in serum or plasma 20 mmol/ L low: 22mmol /Lhigh : 30mmol /L low Not Available Not Available 04/11/2024 21:51:03 04/10/19 25 04/10/2024 Compr ehens amandeep [employer] olic 1999 panel - Serum or Plasm a anion gap in serum or plasma 15 mmol/ L low: 14mmol /Lhigh : 22mmol /L normal Not Available Not Available 04/11/2024 21:51:03 04/10/19 25 [facility] [employer] [facility] 1999 panel - Serum or Plasm a glucose [mass/volume ] in serum or plasma 120 mg/dL low: 70mg/d Lhigh: 99mg/d L high Not Available Not Available 04/11/2024 21:51:03 04/10/19 25 04/10/2024 [facility] [facility] 1999 panel - Serum or Plasm a urea nitrogen [mass or moles/volume ] in serum or plasma 16 mg/dL low: 8mg/dL high: 19mg/d L normal Not Available Not Available 04/11/2024 21:51:03 04/10/19 25 04/10/2024 [facility] [place] amandeep [employer] ic 1999 panel - Serum or Plasm a creatinine [mass/volume ] in serum or plasma 0.89 mg/dL low: 0.66mg /dLhig h: 1.25mg /dL normal Not Available Not Available 04/11/2024 21:51:03 04/10/19 25 04/10/2024 [facility] [place] [employer]andeep [employer] ic 2000 panel - Serum or Plasm a glomerular filtration rate/1.73 sq M.predicted [volume rate/area] in serum, plasma or blood >60 normal Not Available Not Available 04/01 21:51:03 04/10/19 25 04/10/2024 [facility] [place] [facility]ep [employer] [facility] 1999 panel - Serum or Plasm a alkaline phosphatase [enzymatic activity/vol ume] in serum or plasma 123 U/L low: 38U/Lh igh: 126U/L normal Not Available Not Available 04/11/2024 21:51:03 04/10/19 25 04/10/2024 [facility] [place] [facility]ep [employer] [facility] 1999 panel - Serum or Plasm a alanine aminotransfe rase [enzymatic activity/vol ume] in serum or plasma 29 U/L low: 0U/Lhi gh: 50U/L normal Not Available Not Available 04/11/2024 21:51:03 04/10/19 25 04/10/2024 [facility] [place] amandeep [employer] olic 1999 panel - Serum or Plasm a aspartate aminotransfe rase [enzymatic activity/vol ume] in serum or plasma 33 U/L low: 15U/Lh igh: 46U/L normal Not Available Not Available 04/11/2024 21:51:03 04/10/19 25 04/10/2024 [facility] [place] [employer]ep [employer] [facility] 1999 panel - Serum or Plasm a bilirubin.to paul [mass/volume ] in serum or plasma 1.1 mg/dL low: 0.2mg/ dLhigh : 1.3mg/ dL normal Not Available Not Available 04/11/2024 21:51:03 04/10/19 25 04/10/2024 [facility] [place] [employer]ep [employer] [facility] 1999 panel - Serum or Plasm a calcium [mass/volume ] in serum or plasma 9.8 mg/dL low: 8.4mg/ dLhigh : 10.2mg /dL normal Not Available Not Available 04/11/2024 21:51:03 04/10/19 25 04/10/2024 [facility] [place] [facility] [employer] [facility] 1999 panel - Serum or Plasm a protein [mass/volume ] in serum or plasma 8.6 g/dL low: 6.3g/d Lhigh: 8.2g/d L high Not Available Not Available 04/11/2024 21:51:03 04/10/19 25 04/10/2024 [facility] [place] [employer]andeep [employer] [facility] 1999 panel - Serum or Plasm [...] Available 04/11/2024 21:51:03 04/11/19 25 04/11/2024 [facility] [employer] amandeep metab olic 1999 panel - Serum [...] Available 04/11/2024 21:51:03 04/11/19 25 04/11/2024 [facility] [employer] amandeep metab olic 1999 panel - Serum or Plasm a anion gap in serum or plasma 9.3 mmol/ L low: 14mmol /Lhigh : 22mmol /L low Not Available Not Available 04/11/2024 21:51:03 04/11/19 25 04/11/2024 [facility] [employer] amandeep metab olic 1999 panel - Serum or Plasm a glucose [mass/volume ] in serum or plasma 141 mg/dL low: 70mg/d Lhigh: 99mg/d L high Not Available Not Available 04/11/2024 21:51:03 04/11/19 25 04/11/2024 [facility] [employer] amandeep metab olic 1999 panel - Serum or Plasm a urea nitrogen [mass or moles/volume ] in serum or plasma 16 mg/dL low: 8mg/dL high: 19mg/d L normal Not Available Not Available 04/11/2024 21:51:03 04/11/19 25 04/11/2024 [employer] [employer] amandeep metab olic 2000 panel - Serum or Plasm a creatinine [mass/volume ] in serum or plasma 0.78 mg/dL low: 0.66mg /dLhig h: 1.25mg /dL normal Not Available Not Available 04/11/2024 21:51:03 04/11/19 25 04/11/2024 [facility] [place] [facility]ep [employer] [facility] 1999 panel - Serum or Plasm a glomerular filtration rate/1.73 sq M.predicted [volume rate/area] in serum, plasma or blood >60 normal Not Available Not Available 04/01 21:51:03 04/11/19 25 04/11/2024 [facility] [place] [facility]ep [employer] [facility] 1999 panel - Serum or Plasm a alkaline phosphatase [enzymatic activity/vol ume] in serum or plasma 88 U/L low: 38U/Lh igh: 126U/L normal Not Available Not Available 04/11/2024 21:51:03 04/11/19 25 04/11/2024 [facility] [place] amandeep [employer] 1999 panel - Serum or Plasm a alanine aminotransfe rase [enzymatic activity/vol ume] in serum or plasma 20 U/L low: 0U/Lhi gh: 50U/L normal Not Available Not Available 04/11/2024 21:51:03 04/11/19 25 04/11/2024 [facility] [place] amandeep [employer] 1999 panel - Serum or Plasm a aspartate aminotransfe rase [enzymatic activity/vol ume] in serum or plasma 25 U/L low: 15U/Lh igh: 46U/L normal Not Available Not Available 04/11/2024 21:51:03 04/11/19 25 04/11/2024 [facility] [employer] 1999 panel - Serum or Plasm a bilirubin.to paul [mass/volume ] in serum or plasma 0.4 mg/dL low: 0.2mg/ dLhigh : 1.3mg/ dL normal Not Available Not Available 04/11/2024 21:51:03 04/11/19 25 04/11/2024 [facility] [employer] 1999 panel - Serum or Plasm a calcium [mass/volume ] in serum or plasma 9.1 mg/dL low: 8.4mg/ dLhigh : 10.2mg /dL normal Not Available Not Available 04/11/2024 21:51:03 04/11/19 25 04/11/2024 [facility] [place] [employer] [employer] [facility] 1999 panel - Serum or Plasm a protein [mass/volume ] in serum or plasma 6.5 g/dL low: 6.3g/d Lhigh: 8.2g/d L normal Not Available Not Available 04/11/2024 21:51:03 04/11/19 25 04/11/2024 Compr ehens amandeep metab [facility] 1999 panel - Serum or Plasm a albumin [mass/volume ] in serum or plasma 3.6 g/dL low: 3.4g/d Lhigh: 5g/dL normal Not Available Not Available 04/11/2024 21:51:03 04/11/19 25 04/11/2024 Compr ehens amandeep metab ol 1999 panel - Serum or Plasm a globulin [mass/volume ] in serum 2.9 g/dL low: 2.6g/d Lhigh: 4.2g/d L normal Not Available Not Available 04/11/2024 21:51:03 04/11/19 25 04/11/2024 Compr ehens amandeep metab [facility] 1999 panel - Serum or Plasm [...] 2 view No observ ation record ed. [place] [id number] [facility] [address], [place], [address], 03/16/2024 09:01:51 04/10/19 25 04/10/2024 XR, chest , 2 view No observ ation record ed. [address] [place], [address], 04/18/2024 12:28:34 04/11/19 25 04/11/2024 US, abdom en No observ ation record ed. [email or web address] [facility] [address] [facility], [place], [address], 04/18/2024 12:29:06 Result Notes None recorded. 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 Chloé Pang [place], [place] [facility] 8 10:24:31 Cirrhosis of liver 48286901 Active 2017 Chloé P[place] [facility] 8 10:24:48 Chronic obstructive pulmonary disease 94189454 Active 2017 Chloé P[place] [facility] 8 10:24:53 Pulmonary emphysema 36086495 Active 2017 Chloé P[place] [facility] 8 10:25:05 Acid reflux 439446984 Active 2017 Chloé P[place] [facility] 8 10:25:36 Seizure 88141988 Active 2019 Rica Jha [place], [place] [facility] 0 10:07:23 Allergic disorder 325314088 Active 2021 Harsha Delgadillo PA-C Attn: Accountin g,[address] [facility], [place], [address], [place] [facility] 2 14:48:59 Acute sinusitis 53307855 Active 2021 Harsha Delgadillo PA-C Attn: Accountin g,[address] [facility], [place], [address], [place] [facility] 2 14:52:41 Screening for malignant neoplasm of prostate Active 2021 Harsha Delgadillo PA-C Attn: Accountin g,[address] [facility], [place], [address], [place] [facility] 2 14:57:01 Hyperlipide sergey screening Active 2021 Harsha Delgadillo PA-C Attn: Accountedilson g,[address] [facility], [place], [address], [place] [facility] 2 14:57:58 At increased risk of nutritional deficit 563642746 Active 2021 Harsha Delgadillo PA-C Attn: Accountedilson g,[address] [facility], [place], [address], [place] [facility] 2 14:59:25 Underweight 056381591 Active 2021 Harsha Delgadillo PA-C Attn: Accountedilson g,[address] [facility], [place], [address], [place] [facility] 2 15:01:02 Esophageal varices 94649360 Active 2021 Harsha Delgadillo PA-C Attn: Accountedilson carias,[address] [facility], [place], [address], [place] [facility] 2 21:24:38 Chronic back pain 990426446 Active 2021 Lian Melchor MD Attn: Accountedilson carias,[address] [facility], [place], [address], [place] [facility] 2 17:37:21 Nausea 010820668 Active 2022 Lian Melchor MD Attn: Accountedilson g,[address] [facility], [place], [address], [place] [facility] 3 15:47:03 Chest wall pain 181581364 Active 2022 Lian Melchor MD Attn: Accountin g,[address] [facility], [place], [address], [place] [facility] 3 15:50:48 Hepatic encephalopa thy 05760441 Active 2022 Lian Melchor MD Attn: Accountedilson g,[address] [facility], [place], [address], [place] [facility] 3 15:53:26 Hiatal hernia 97806346 Active 2022 Lian Melchor MD Attn: Mary carias,[address] [facility], [place], [address], [place] [facility] 3 13:16:44 Active immunizatio n Active 2022 Lian Melchor MD Attn: Mary carias,[address] [facility], [place], [address], [place] [facility] 3 13:41:15 Administrat ion of diphtheria and tetanus vaccine Active 2022 Lian Melchor MD Attn: Mary g,[address] [facility], [place], [address], [place] [facility] 3 13:42:22 Medication monitoring Active 2022 Lian Melchor MD Attn: Jaceyedilson carias,[address] [facility], [place], [address], [place] [facility] 3 19:46:29 Screening for malignant neoplasm of colon Active 2022 Lian Melchor MD Attn: Mary aretha,[address] [facility], [place], [address], [place] [facility] 3 11:19:12 Bronchitis 39052924 Active 2022 Lian Melchor MD Attn: Jaceyedilson carias,[address] [facility], [place], [address], [place] [facility] 3 16:54:12 Cough 38067501 Active 2022 Lian Melchor MD Attn: Jaceyedilson carias,[address] [facility], [place], [address], [place] [facility] 3 03:45:13 Tobacco dependence syndrome 87731272 Active 2022 Lian Melchor MD Attn: Mary g,[address] [facility], [place], [address], [place] [facility] 3 03:46:31 History of thrombocyto penia 1245274610778 8 Active 2023 Lian Melchor MD Attn: Mary carias,[address] [facility], [place], [address], [place] [facility] 4 11:26:13 Paresthesia 36452015 Active 2024 Lian Melchor MD Attn: Mary carias,[address] [facility], [place], [address], [place] [facility] 5 17:03:25 Common bile duct calculus 789013238 Active 2024 Lian Melchor MD Attn: Mary carias,[address] [facility], [place], [address], [place] [facility] 13:39:19 Chronic daily headache 3329148599796 02 Active 2024 Lian Melchor MD Attn: Mary carias,[address] [facility], [place], [address], [place] [facility] 11:48:46 Notes:Bulging disc 3 of them and cracked vertebre Some problems listed in Documents: #[id number], #[id number], #[id number], #[id number], #[id number], #[id number], #[id number] could not be added to this patient's chart. Please review these documents and add these problems to the patient's chart manually as needed. Problem Notes None recorded. Procedures Surgical History Date Name Laterality Status Provider Name and Address Organization Details Recorded Time 03/01/19 colonoscopy completed Iraj Serna MA [facility] 05/14/2021 11:41:04 excision of colon completed [facility] 12/30/2017 10:28:49 endoscopy completed [facility] 12/30/2017 10:29:31 Knee Surgery completed CHANCE Warner [facility] 05/14/2021 11:38:27 Cholecystectomy completed CHANCE Warner [facility] 05/14/2021 11:38:51 Imaging Results None recorded. Procedure Notes None recorded. Medical Equipment None Reported. Allergies Allergen ID Allergen Name Allergen Category Reaction Reaction Severity Criticality Documentation Date Start Date Code Code System Note Provider Name and Address Organization Details Recorded Time 901427 fentanyl medicatio n Not available Not available Not available 12/30/2017 4337 RxNorm Chloé Pang [place] null, [place] - [facility] 8 10:21:35 517583 Cipro medicatio n Not available Not available Not available 12/30/2017 97746 3 RxNorm Chloé Pang [place], [place] [facility] 8 10:21:41 968003 bupropion Not available other Not available Not available 10/03/2019 56608 RxNorm Jazmin Shankar MD Attn: Jaceyedilson ,[address] [place], [address] [facility] [place] [facility] 0 10:40:12 789985 wasp venoms environme nt Not available Not available Not available 05/14/2021 83933 RxNorm Iraj Serna [place], [place] - [facility] 2 11:36:33 058726 hornet venom environme nt other severe Not available 07/10/2021 Chloé Duenas [place], [place] - [facility] 2 14:26:01 923068 ciproflox acin medicatio n Not available Not available low 12/22/20242023 2551 RxNorm unrec ogniz ed react ion (text : Nause a and Vomit ing, code: 31705 000) (from ext nal sour e) Not Available ko - External Data Service - prod 5 16:31:21 436567 eletripta n hydrobrom nanda medicatio n Not available Not available Not available 12/22/20242013 66762 8 RxNorm unrec ogniz ed react ion (text : Unkno wn, code: 89339 5006) (from exter nal sourc e) Not Available ko - External Data Service - prod 5 16:35:01 779367 strawberr y allergeni c extract food Not available Not available high 12/22/20242018 31331 4 RxNorm Throa t close s unrec ogniz ed react ion (text : Claudia thurston, code: 57202 2001) (from [facility]) Not Available ko - External Data Service - prod 16:35:01 Medications Name Sig Start Date Stop Date [...] tablet TAKE 1 TABLET BY MOUTH EVERY 8 HOURS NEEDED active Not Available Not Available No [...] completed Not Available Not Available Not Available Klor-Con 20 mEq oral packet DISSOLVE 1 PACKET IN WATER & DRINK ONCE DAILY active Not Available Not Available No t Available dextrometho rphan-guaif enesin 10 mg-100 mg/5 mL oral syrup [...] completed Not Available Not Available Not Available tramadol 50 mg tablet TAKE 1 TABLET BY MOUTH EVERY 6 HOURS NEEDED active Not Available Not Available No t Available sildenafil 100 mg tablet TAKE 1 TABLET BY MOUTH NEEDED active Not Available Not Available No t Available bupropion HCl SR 100 mg tablet,12 hr sustained-r elease 05/14 completed Not Available Not Available Not Available ondansetron 8 mg disintegrat ing tablet DISSOLVE 1 TABLET IN MOUTH THREE TIMES DAILY NEEDED active Not Available Not Available No t Available cyproheptad ine 4 mg tablet TAKE [...] 1 TABLET BY MOUTH 4 TIMES DAILY NEEDED active [...] Not Available Not Available No t Available nortriptyli ne 10 mg capsule TAKE 1 CAPSULE BY MOUTH NIGHTLY active Not Available Not Available No t [...] completed Not Available Not Available Not Available methylpredn isolone 4 mg tablets in a dose pack TAKE BY MOUTH DIRECTED ON INSIDE OF PACKAGE active Not Available Not Available No t Available albuterol sulfate HFA 90 mcg/actuati on aerosol inhaler INHALE 2 PUFFS BY MOUTH 4 TIMES DAILY NEEDED 2024 active Not Available Not Available Not Avai lable ondansetron 4 mg disintegrat ing tablet DISSOLVE 1 TABLET IN MOUTH THREE TIMES DAILY NEEDED FOR NAUSEA active Not Available Not Available No t Available cefdinir 300 mg capsule TAKE 1 CAPSULE BY MOUTH EVERY 12 HOURS 01/12 completed Not Available Not Available Not Available fluticasone propionate 50 mcg/actuati on nasal spray,suspe nsion 07/10 completed Not Available Not Available Not Available amoxicillin 875 mg-potassiu m clavulanate 125 mg tablet TAKE 1 TABLET BY MOUTH EVERY 12 HOURS DIRECTED FOR 7 DAYS 01/12 completed Not Available Not Available Not Available [...] 1 TABLET BY MOUTH EVERY 12 HOURS active Not Available Not Available No [...] (BMI) Body weight Heart rate Oxygen saturation Systolic And Diastolic Provider Name and Address Organization Details Last Updated DateTime 5 173.99 cm 18.3 kg/m2 36399.4 1 g 64 /min 99 % 130/76 mm[Hg] Gricelda Delgadillo [place] - [facility] 5 16:32:43 Date Recorded Body height Body mass index (BMI) Body weight Heart rate Oxygen saturation Systolic And Diastolic Provider Name and Address Organization Details Last Updated DateTime 5 173.99 cm 17.7 kg/m2 41205.0 4 g 73 /min 98 % 160/71 mm[Hg] Gricelda Delgadillo MA [facility] 5 12:54:47 Date Recorded Body height Body mass index (BMI) Body weight Heart rate Oxygen saturation Systolic And Diastolic Provider Name and Address Organization Details Last Updated DateTime 5 173.99 cm 17.2 kg/m2 15095.4 1 g 90 /min 97 % 126/80 mm[Hg] Gricelda Delgadillo MA [facility] 5 11:19:27 Date Recorded Body height Body mass index (BMI) Body weight Oxygen saturation Heart rate Systolic And Diastolic Provider Name and Address Organization Details Last Updated DateTime 4 173.99 cm 18.1 kg/m2 23323.6 8 g 98 % 81 /min 128/84 mm[Hg] Micaela Lancaster MA [facility] 4 12:43:44 Date Recorded Body height Body mass index (BMI) Body weight Oxygen saturation Heart rate Systolic And Diastolic Provider Name and Address Organization Details Last Updated DateTime 4 173.99 cm 18.7 kg/m2 02714.0 5 g 98 % 73 /min 132/72 mm[Hg] Micaela Lancaster MA [facility] 4 10:42:58 Social History Question Answer Notes LastModified by Organizat ion Details LastModified Time Tobacco Smoking Status Former Smoker Micaela Lancaster MA null, [facility] 04/08/2022 15:26:22 Do You Have An Advance [...] used smokeless tobacco? Former smokeless tobacco user [email or web address] Information not available 10/10/2018 Are you currently employed? No Information not available 12/30/2017 Are you able to care for yourself independently? Yes Information not available 12/30/2017 Do you or have you ever used e-cigarettes or vape? Former user of electronic cigarettes [email or web address] Information not available 10/10/2018 What is your exercise level? Moderate Information not available 12/30/2017 Mental Status Question Answer Note LastModified by Organization D etails LastModified Time Do you feel stressed (tense, restless, nervous, or anxious, or unable to sleep at night)? [id number] Information not available 03/22/2024 Family History Relationship [...] High Blood Pressure N Atrial Fibrillation N Thyroid Problems N Kidney or Bladder Problems N GI Problems N Depression N COPD Y Blood Clots N Skin Problems N Eating Disorder N Anemia N Heart Attack ([place]) N Anxiety Disorder N Diabetes N Muscle, [...] completed Jazmin Shankar MD Attn: Accounting,[address] [place], [address], [facility] 12/25/2018 23:20:28 COVID-19, mRNA, LNP-S, PF, 100 mcg/0.5mL dose or 50 mcg/0.25mL dose 1 completed Randi Bellamy MA null, [place] - [facility] 08/12/2020 14:33:38 influenza, whole 6 completed Not Available [facility] 08/15/2024 11:04:24 pneumococcal polysaccharide PPV23 2 completed Not Available [facility] 08/15/2024 11:04:24 Influenza, split virus, quadrivalent, PF 2 completed Not Available [facility] 08/15/2024 11:04:24 Influenza, split virus, quadrivalent, preservative 9 completed Not Available [facility] 03/18/2019 02:41:59 pneumococcal polysaccharide PPV23 9 completed Not Available [facility] 03/18/2019 02:47:16 Tdap 3 completed Micaela Lancaster [place], [place] [facility] 07/29/2022 14:56:56 Influenza, split virus, trivalent, preservative 5 completed Gricelda Delgadillo [place], [place] [facility] 03/23/2024 09:48:10 Past Encounters Encounter ID Performer Location Encounter Start Date Encounter Closed Date Diagnosis/Indication Diagnosis SNOMED-CT Code Diagnosis ICD10 Code Diagnosis IMO Codes Diagnosis Note [id number] Jazmin Shankar MD [facility] [address] [place] [address] 12/30/2017 10:08:17 12/30/2017 16:59:19 Neuropathy 091937029 G62.9 Gastroesop hageal reflux disease without esophagitis 091108014 K21.9 Standardiz ed adult depression screening tool completed 7194172488 06553 Z13.89 patient does not appear to be significan tly depressed. Chronic low back pain 27 3935224 M54.5 Cirrhosis of liver 007 K74.60 discussed cirrhosis and liver masses with patient and recommende d getting back on the transplant list; he had been offered a liver before but declined it since he was feeling well and working to support his family. [id number] Jazmin Shankar MD [facility] [address] [facility] [place] [address] 09/02/2018 16:15:46 09/12/2018 09:09:46 Screening for malignant neoplasm of colon 918480123 Z12.11 Liver mass 177007539 R16 .0 [id number] Jazmin Shankar MD [facility] [address] [place] [address] 10/05/2018 11:14:03 10/12/2018 09:06:19 Malignant neoplasm of liver 18853649 C22.9 Liver mass 211375541 R16 .0 Moderate p ersistent asthma 174382860 J45.40 Neuropathy 211132706 G62 .9 Gastroesop hageal reflux disease without esophagitis 028789049 K21.9 [id number] Jazmin Shankar MD [facility] [address] [place] [address] 10/28/2018 14:23:42 11/01/2018 09:34:29 Malignant neoplasm of liver 26251970 C22.9 Standardiz ed adult depression screening tool completed 5411220794 05984 Z13.89 patient does not appear to be significan tly depressed. [id number] Jazmin Shankar MD [facility] [address] [place] [address] 12/20/2018 16:24:11 12/26/2018 08:50:23 Not up to date with immunizations 174497434 Z28.3 risks and benefits of immunizati ons reviewed, and patient agreed to receive shot Malignant neoplasm of liver 74686151 C22.9 [id number] Jazmin Shankar MD [facility] [address] [place] [address] 01/30/2019 13:20:31 02/06/2019 09:32:18 Acute exacerbation of chronic bronchitis 621726319 J44.1 Patient started on augmentin for 2 weeks; strongly advised to quit smoking. Malignant neoplasm of liver 60369726 C22.9 cancer has been treated; he is now on the transplant waiting list and close to the top. [id number] Jazmin Shankar MD [facility] [address] [place] [address] 03/16/2019 15:18:48 03/23/2019 10:31:43 Acute bronchitis 20064471 J20.9 Chicken soup, orange juice, popsicles, snow cones, slurpees, ice cream, tea with honey and lemon, hot lemonade, gatorade, and yogurt may make you feel better. [id number] Jazmin Shankar MD [facility] [address] [place] [address] 04/14/2019 12:10:45 04/17/2019 11:30:01 Trying to give up smoking 995711028 Z72.0 Patient has to quit smoking so he can get a liver transplant . [id number] Jazmin Shankar MD [facility] [address] [place] [address] 05/01/2019 09:54:57 05/02/2019 12:43:47 Malignant neoplasm of liver 84635204 C22.9 cancer has been treated; he is now on the transplant waiting list and close to the top. [id number] Jazmin Shankar MD [facility] [address] [place] [address] 07/21/2019 10:04:41 07/21/2019 15:35:06 [id number] Jazmin Shankar MD [facility] [address] [place] [address] 08/23/2019 10:08:03 08/28/2019 14:59:20 Neuropathy 610928800 G62.9 Malignant neoplasm of liver 18168523 C22.9 cancer has been treated; he is now on the transplant waiting list and close to the top. [id number] Jazmin Shankar MD [facility] [address] [place] [address] 11/27/2019 12:01:14 11/29/2019 11:31:50 Malignant neoplasm of liver 85036274 C22.9 cancer has been treated; he is now on the transplant waiting list and close to the top. [id number] Jazmin Shankar MD [facility] [address] [place] [address] 01/24/2020 14:03:37 01/29/2020 06:35:05 Malignant neoplasm of liver 08958760 C22.9 cancer has been treated; he is [...] 3001 J43.9 Patient advised to quit smoking. [id number] Jazmin Shankar MD [facility] [address] [place] [address] 03/20/2020 14:05:12 03/25/2020 10:00:02 Opioid dependence 50094176 F11.20 Bilateral carpal tunnel syndrome 1040981973 5846959 G56.03 Awaiting transplantation of liver 677881331 Z76.82 can't get on the transplant list until he quits smoking, which has been just about impossible for him. Malignant neoplasm of liver 45690065 C22.9 cancer has been treated; he is [...] advised to quit smoking. Depression screening 171 684925 Z13.31 patient does not appear to be significan tly depressed. [id number] Jazmin Shankar MD [facility] [address] [place] [address] 08/12/2020 11:09:56 08/22/2020 08:01:13 Malignant neoplasm of liver 61834980 C22.[address] scan. [id number] Cedrick Barriga MD [facility] [address] [place] [address] 11/18/2020 08:06:17 11/20/2020 12:37:16 Seizure 74229795 R56.9 meds an follow up... seeing neurology. .. Malignant neoplasm of liver 58918224 C22.9 seeing specialist ... Gastroesop hageal reflux disease 009549719 K21.9 meds and follow up... Chronic ob structive pulmonary disease 73751266 J44.9 meds and follow up.. Benign pro static hyperplasia 032280609 N40.0 meds and follow up... [id number] Cedrick Barriga MD [facility] [address] [place] [address] 01/27/2021 10:57:37 01/28/2021 10:00:24 Seizure 20589110 R56.9 meds an follow up... seeing neurology. .. possibly from high NH4+ level in past Malignant neoplasm of liver 57064842 C22.9 seeing specialist ... Gastroesop hageal reflux disease 488914999 K21.9 meds and follow up... Chronic ob structive pulmonary disease 28559167 J44.9 meds and follow up.. Benign pro static hyperplasia 029398554 N40.0 meds and follow up... Cirrhosis of liver 12169 007 K74.60 on transplant list at [facility] [id number] [facility] [address] [place] [address] 05/14/2021 10:49:02 05/15/2021 09:56:39 Cirrhosis of liver 95271756 K74.60 Awaiting for the liver transplant , Pain of le ft knee joint 2310754107 39177 M25.562 History of left knee injury. Underweight 697150791 R6 3.6 On ensure supplement . Wants appetite to be enhanced, Chronic back pain 716828 002 G89.29 From accident at job of [employer] on . on gabapentin . 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 Hyperlipid emia screening 185582954 Z13.220 Chronic ob structive pulmonary disease 79586573 J44.9 At [facility] risk of nutritional deficit 626384334 Z91.89 Underweight 656243227 R6 3.6 Seizure 53817957 R56.9 Cirrhosis of liver 007 K74.60 [id number] [facility] [address] [place] [address] 01/21/2022 16:03:06 01/29/2022 15:15:27 Gastroesophageal reflux disease 547234636 K21.9 Pain of le ft knee joint 0549743539 61010 M25.562 Seizure 30179114 R56.9 Cirrhosis of liver 007 K74.60 Esophageal varices 17835 008 I85.00 Pulmonary emphysema 8743 3001 J43.9 Chronic ob structive pulmonary disease 47302963 J44.9 Chronic back pain 197726 002 G89.29 [id number] Lian Melchor MD [facility] [address] [place] [address] 04/08/2022 15:00:55 04/14/2022 14:55:50 Nausea 495591917 R11.0 Chest wall pain 78923504 6 R07.89 Hepatic encephalopathy 16424667 K76.82 [id number] Lian Melchor MD [facility] (Adult Med) [address] [place] [address] 07/06/2022 17:10:16 07/13/2022 17:10:31 Underweight 440492567 R63.6 Chronic back pain 699420 002 G89.29 Chest wall pain 23822151 6 R07.89 Hepatic encephalopathy 20214768 K76.82 Gastroesop hageal reflux disease 131711721 K21.9 Nausea 655673214 R11.0 [id number] MD [facility] (Adult Med) [address] [place] [address] 07/29/2022 12:33:20 07/31/2022 09:18:05 Hiatal hernia 97439120 K44.9 Chronic back pain 135283 002 G89.29 Chest wall pain 53515394 6 R07.89 Active immunization 3387 9002 Z23 [id number] MD [facility] (Adult Med) [address] [place] [address] 09/21/2022 10:48:04 09/22/2022 10:21:37 Chronic back pain 750943112 G89.29 Cirrhosis of liver 63831 007 K74.60 Medication monitoring 39 8998863 Z51.81 Pulmonary emphysema 8743 3001 J43.9 Screening for malignant neoplasm of prostate 993325983 Z12.5 Screening for malignant neoplasm of colon 422851060 Z12.11 Hepatic encephalopathy 72812842 K76.82 [id number] MD [facility] (Adult Med) [address] [place] [address] 02/01/2023 15:51:04 02/03/2023 14:20:29 Bronchitis 35500704 J40 [id number] [facility] [address] [place] [address] 03/17/2023 14:31:41 03/23/2023 15:10:01 Cirrhosis of liver 27267926 K74.60 Chronic ob structive pulmonary disease 03074299 J44.9 Esophageal varices 06232 008 I85.00 [id number] MD [facility] (Adult Med) [address] [place] [address] 09/21/2023 12:22:51 09/21/2023 13:08:18 Cirrhosis of liver 76425928 K74.60 Esophageal varices 92628 008 I85.00 Tobacco de pendence syndrome 24566544 F17.200 Chronic back pain 138232 002 G89.29 Hyperlipid emia screening 796431562 Z13.220 Pulmonary emphysema 8743 3001 J43.9 [id number] MD [facility] (Adult Med) [address] [place] [address] 10/12/2023 10:26:33 10/15/2023 11:22:48 History of thrombocytopenia 5329601000 9108 Z86.2 [id number] MD [facility] (Adult Med) [address] [place] [address] 03/22/2024 16:00:44 03/29/2024 16:37:46 Chronic obstructive pulmonary disease 71104198 J44.9 Cirrhosis of liver 007 K74.60 Seizure 01162706 R56.9 Tobacco de pendence syndrome 20233507 F17.200 Type B vir al hepatitis 36777509 B19.10 Paresthesia 14437474 R20 .2 Chronic back pain 655081 002 G89.29 Active immunization 3387 9002 Z23 Nausea 930543373 R11.0 [id number] MD [facility] (Adult Med) [address] [place] [address] 06/21/2024 12:31:53 06/22/2024 16:30:32 Chronic back pain 416405071 G89.29 Chronic ob structive pulmonary disease 37801032 J44.9 Tobacco de pendence syndrome 67271746 F17.200 Hepatic encephalopathy 83752814 K76.82 F/U GI Common carlito e duct calculus 454151565 K80.50 9502 [id number] MD [facility] (Adult Med) [address] [place] [address] 08/15/2024 11:02:52 08/16/2024 10:07:02 Chronic daily headache 2814986404 65648 R51.9 472240 Chronic back pain 018559 002 G89.29 Benign pro static hyperplasia 426070823 N40.0 08279230 Health Concerns Section Related Observation LastModified by Organization Detai ls LastModified Time None Recorded Concern Status LastModified by Organization Details LastModified Time None Recorded Advance Directives Directive N: Payers Insurance Date Sequence Insurance Name Policy Number Policy Norman Covered Member ID Normna Member ID Guarantor Name 09/21/2023 [place] [facility] Ronan Baez [id number] Isreal Baez 09/21/2023 2 [place] [facility] Isreal Baez [id number] Isreal Baez 09/21/2023 3 [facility] [id number] Ronan Baez [id number] Isreal Baez 09/21/2023 3 [place] Ronan Baez [id number] Isreal Baez 01/12/2025 1 [facility] (MEDICARE REPLACEMENT/AD VANTAGE - PPO) [id number] Ronan Baez [id number] Isreal Baez 01/12/2025 2 [place] WHEN MEDICARE OR MEDICARE REPLACEMENT PRIMARY) Isreal Baez [id number] Isreal Baez Notes Date Note Type Note Provider Name and Address Organization Details Recorded Time 09/21/2023 text/html Here for f/u. Unsure why he can no longer be seen at [facility]. Needs referral to be seen by GI at [facility]. Recently seen by urologist. Lian Melchor MD Attn: Accounting,[address] [facility], [place], [address], [facility] - [facility] 09/21/2023 13:23:37 10/12/2023 text/html Here to discuss lab results Lian Melchor MD Attn: Accounting,[address] [facility], [place], [address], [facility] - [facility] 10/12/2023 11:28:28 03/22/2024 text/html Has a parttime job working four days weekly. Requesting increase in pain medication. Has cramps in multiple muscles as well as numbness and tingling Gricelda Delgadillo MA [facility], [place] - [facility] 03/23/2024 09:45:24 06/21/2024 text/html Here for f/u. Had recent ERCP. Hepatic duct was stenosed and stone was present in biliary tree. Needs med refill Lian Melchor MD Attn: Accounting,[address] [facility], [place], [address], [facility] 06/21/2024 13:40:27 08/15/2024 text/html Has chronic problems with headaches. Headaches are periorbital. GI recommends avoidance of nsaids because of chronic liver disease and bruising. Lian Melchor MD Attn: Accounting,[address] [facility], [place], [address], [facility] 08/15/2024 12:08:45
--- OUTSIDE RECORDS SUMMARY | 2025-01-29 15:34 | XMS_ITS | Clinical Summary ---
Author Organization [facility] Address [address] [place] [id number] Care Team Providers Care Foundry Tender Name Role Phone Unavailable Primary Care Provider [...] Comments Blood Pressure 124/76 04/26/2013 10:30 AM ELECTRIC CUTTER OPERATOR Pulse 80 02/13/2013 1:51 PM ELECTRIC CUTTER OPERATOR Temperature - - Respiratory Rate - - Oxygen Saturation - - Inhaled Oxygen Concentration - - Weight 56.7 kg (125 lb) 03/27/2013 1:50 PM ELECTRIC CUTTER OPERATOR Height 175.3 cm (5' 9) 03/27/2013 1:50 PM ELECTRIC CUTTER OPERATOR Body Mass Index 18.46 03/27/2013 1:50 PM ELECTRIC CUTTER OPERATOR Plan of Treatment Health Maintenance Due Date Last Done Comments Colorectal Cancer Screening Colonoscopy (10 Years) 1963 Annual Physical 09/13/1966 Hepatitis C 09/13/1981 DTaP, Tdap and Td Vaccines ( 1 - Tdap) 09/13/1982 Pneumococcal Vaccine: 50+ Ye ars (1 of 1 - PCV) 09/13/2013 Zoster Vaccines (1 of 2) 09/13/2013 COVID-19 Vaccine ( - 2024-2 6 season) 2024 Influenza Adult (#1) 2024 02/13/2013 RSV Immunization or 60+ Years (1 - 1-dose 75+ series) 09/13/2038 Hepatitis A Vaccines Aged Out No long er eligible based on patient's age to complete this topic Meningococcal B Vaccine Aged Out No l onger eligible based on patient's age to complete this topic Meningococcal Vaccine Aged Out No omar abigail eligible based on patient's age to complete this topic RSV Immunizations Under 20 Months Aged Out No longer eligible based on patient's age to complete this topic
--- OUTSIDE RECORDS SUMMARY | 2025-01-29 15:34 | XMS_ITS | Encounter Summary ---
Author Organization [facility] Address [address] [place] [address] Phone Care Team Providers Care Ophthalmic Technician Name Role Phone Cedrick Barriga MD Primary Care Provider [phone] Unknown, Notinfile Primary Care Provider Unavail able Cedrick Barriga MD Primary Care Provider [phone] Cedrick Barriga MD Unavailable [phone] Dequan Frye MD Unavailable [phone] Lian Melchor MD Primary Care Provider Encounter Details Date Type Department Care Team (Late st Contact Info) Description 04/01/2022 Documentation [facility] Medicine Gastroenterology [address] [facility] 12th [place] [address] [place] [address] Zoya Masterson LPN Social History Tobacco Use [...] on file Legal Sex Male 2:43 AM HOSPITAL INTERN Gender Identity Not on file Sexual Orientation [...] COVID: Suspected 03/01/2023 03/01/2023 03/01/2023 10:12 PM HOSPITAL INTERN RSV, droplet 03/01/2023 03/01/2023 03/08/2023 3:05 AM HOSPITAL INTERN documented as of this encounter Care Teams Ophthalmic Technician Relationship Specialty Start Date End Date Cedrick Barriga MD [address] [place] [address] PCP - General 12/24/20 07/19/22 Unknown, Notinfile PCP - General 07/20/22 07/20/22 Cedrick Barriga MD [address] [place] [address] PCP - General Family Medicine 07/21/22 11/12/22 Lian Melchor MD [address] [place] [address] PCP - General Gastroenterology 11/13/22 Cedrick Barriga MD [address] [place] [address] 07/20/22 08/11/22 Dequan Frye MD Referring Physician Transplant Hepatology 08/19/18 documented as of this encounter
--- OUTSIDE RECORDS SUMMARY | 2025-01-29 15:35 | XMS_ITS | Clinical Summary ---
Author Organization [facility] Address [address] [place] [address] Care Team Providers Care Carton Packaging Machine Operator Name Role Phone Dequan Frye MD Unavailable [phone] Lian Melchor MD Primary Care Provider Allergies Active Allergy Reactions Criticality Noted Date Comments Ciprofloxacin Stomach upset Low Eletriptan Hbr Unknown 08/21/2013 Fentanyl Delusions,Hallucinat ions ,Agitation,Nausea only High 11/02/2018 Extreme agitation/paradoxical reaction requiring precedex and ICU transfer [place] Swollen tongue High 09/20/2018 Throat closes Medications [...] taking differently:2 puff inhalationEvery 4 hours PRN (supervisor correspondence section), (No PRN reasons reported), Reported on 11/21/2024 [...] the muscle as instructed as needed 07/11/19 25 Active levETIRAcetam (KEPPRA) 750 mg tablet Take 2 tablets (1,500 mg total) by mouth 2 (two) times a day 120 tablet 11/22/19 25 026 Active nortriptyline (PAMELOR) 10 mg capsule Take 1 capsule (10 mg total) by mouth nightly 30 capsule 11/22/19 25 026 Active topiramate (TOPAMAX) 50 mg tablet Take 1 tablet (50 mg total) by mouth daily 30 tablet 11/22/19 25 Active Active Problems Patient Care Coordination No te Formatting of this note migh t be different from the original. Best number to call is [phone]. Cell phone has been turned off as [...] underlying chronic liver disease. Recent admission to [facility] for status epilepticus reviewed from June [...] (06/11/2022): Added automatically from request for surgery [id number] Assessment & Plan (08/24/2024 5:50 PM CDT): [...] underlying chronic liver disease. Recent admission to [facility] for status epilepticus reviewed from June 2024 Continue home Keppra 1000 mg b.i.d. (he self-reduced his dose from 200 mg BID to 1000 mg BID) Seizure precautions He he and his both that he drinks a significant amount of alcohol. Stop formal alcohol withdrawal monitoring Osteopenia 09/21/2018 Chronic viral hepatitis B 08/31/2018 Overview (08/31/2018): Added automatically from request for surgery [id number] Hepatocellular carcinoma 08/09/2018 Assessment & Plan (08/24/2024 [...] Description 11/21/2024 2:00 PM CDT Office Visit [facility] Medicine Epilepsy [address] [facility] 6th [place] [address] [place] [address] David Kumar MD Partial idiopathic epilepsy with seizures of localized onset, not intractable, with status epilepticus (HCC) (Primary Dx); Intractable chronic migraine without aura and without status migrainosus 11/16/2024 Results Follow-Up [facility] Medicine Gastroenterology [address] [facility] [address], [address] [place] [address] Dorie Caba RN Hepatic function panel from Last 3 Months Immunizations Immunization Administration [...] Date Smoking Tobacco: Every Day Cigarettes 1.5 42.9 Started: 1984 Passive Smoke Exposure: Current Smokeless [...] on file 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 Medical Devices Implanted Type Area Technical Communicator Device Identifier Shelf Expiration Date Model / Serial / Lot [employer] Becca 10fr 5cm Biliary Double Pigtail Stent [id number] - [id number] Implanted:Qty: 1 on 06/08/2024 by Kee Lew MD at [facility] Stent N/A: Bile Duct [employer] Becca 05/01/2026 [id number] / / [id number] Lower Leg Ortho Hardware-01/16/20 18 Implanted: 018 (Quantity not on file) Left: Leg [employer] [id number] Embosphere Prefill Saline Syringe Compressible Nonaggregate - [id number] Implanted:Qty: 1 on 11/02/2018 at [facility] [employer] 05/29/2021 [id number] / / [id number] Procedures Procedure Name Priority Date/Time Associated Diagnosis Comments HEPATIC FUNCTION PANEL Routine 11/15/2024 10:33 AM CDT Common bile duct stone HEPATITIS C ANTIBODY Routine 07/17/2024 5:47 AM CDT PSA SCREEN Routine 09/20/2018 7:23 AM CDT Pre-transplant evaluation for liver transplant Chronic hepatitis B (HCC) Hepatocellular carcinoma (HCC) COLONOSCOPY REPORT 05/02/2015 from Last 3 Months or Most Recently Relevant to Health Maintenance Results * (ABNORMAL) Hepatic function panel (11/15/2024 10:33 AM CDT) Pathologist [facility] Protein, sr 6.9 6.0 - 8.5 g/dL [...] - 11/16/2024 3:35 AM CDT Performed at: [address] [place] [id number] Peritoneal Dialysis Registered Nurse: Juan Carlos Mcgee PhD, Phone: [phone] us Kee Lew MD LAB BLOOD ORDERABL ES Final Result [facility] - 01 * Hepatitis C antibody Blood (07/17/2024 5:47 AM CDT) Pathologist [facility] Hep C Ab Nonreactive Nonreactive Comment:Antibodies to HCV no t detected. Does NOT exclude the possibility of recent exposure to HCV. Current interpretive data was last revised on 21 Blood 07/17/2024 5:47 AM CDT 07/17/2024 6:40 AM CDT Dusty Butler MD LAB MICROBIOLOGY - GE NERAL ORDERABLES Final Result Performing Organization Address [facility] de Phone Number [facility] [place] [address] * PSA screen (09/20/2018 7:23 AM CDT) PSA-Total 0.19 <=3.90 ng/mL [facility] Comment: Interpretive Data AGE SEX REFERENCE INTERVAL 0 minutes-150 years Female None 0 minutes-49 years Male None 50-59 years Male 0-3.90 60-69 years Male 0-5.40 70-79 years Male 0-6.20 80-150 years Male 0-6.20 Current interpretive data last revised 2017. Blood specimen (specimen) 09/20/2018 7:23 AM CDT 09/20/2018 8:16 AM CDT Dequan Frye MD LAB BLOOD ORDERABLES Fi nal Result Performing Organization Address [facility] de Phone Number [facility] [place] [address] * COLONOSCOPY REPORT (05/02/2015) Anatomical Region Laterality Modality Other Narrative 05/02/2015 Ordered by an unspecified provider. Historical Provider GI PROCEDURE ORDERABLES F inal Result from Last 3 Months or Most Recently Relevant to Health Maintenance Insurance [employer] [facility] MEDICARE [place] [address] [employer] [facility] MEDICARE ADVANTAGE [facility] ADVANTAGE IDPA [employer] MEDICARE ADVANTAGE TRANSPLANT [employer] MEDICARE RISK [facility]F [facility] REF Advance Directives For more information, please contact: [phone] * Full Code (Latest Code Status on [...] 9:44 AM 10/04/2022 4:02 PM Care Teams Carton Packaging Machine Operator Relationship Specialty Start Date End Date Lian Melchor MD [address] [address] PCP - General Gastroenterology 11/13/22 Dequan Frye MD Referring Physician Transplant Hepatology 08/19/18
--- OUTSIDE RECORDS SUMMARY | 2025-01-29 15:35 | XMS_ITS | Encounter Summary ---
Author Organization [facility] Address [address] [place] [address] Care Team Providers Care Rotary Adjuster Name Role Phone Jazmin Shankar MD Primary Care Provider [phone] Cedrick Barriga MD Primary Care Provider [phone] Unknown, Notinfile Primary Care Provider Unavail able Cedrick Barriga MD Primary Care Provider [phone] Cedrick Barriga MD Unavailable [phone] Olya Corcoran RN Unavailable [phone] Dequan Frye MD Unavailable [phone] Melissa Schumacher RN Unavailable Lian Melchor MD Primary Care Provider Encounter Details Date Type Department Care Team (Late st Contact Info) Description 09/15/2019 Telephone [facility] ([facility]) [address] [place] [id number] Piotr Trujillo MD [address] [place], [place] [id number] Social History Tobacco Use Types Packs/Day Years Used Date Smoking Tobacco: Every Day Cigarettes 0.2 42.9 Started: 1984 Smokeless Tobacco: Never Comments:trying to quit-smok ing Alcohol Use Standard Drinks/Week Comments Not Currently 0 (1 standard drink = 0.6 oz pur e alcohol) denies Sex and Gender Information Value Date Recorded Sex Assigned at Not on file 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 Gender Identity Not on file Sexual Orientation [...] COVID: Suspected 03/01/2023 03/01/2023 03/01/2023 10:12 PM FUNERAL HOME ATTENDANT RSV, droplet 03/01/2023 03/01/2023 03/08/2023 3:05 AM FUNERAL HOME ATTENDANT documented as of this encounter Care Teams Rotary Adjuster Relationship Specialty Start Date End Date Jazmin Shankar MD PCP - General Family Medicine 08/09/18 12/23/20 Cedrick Barriga MD [address] [place] [address] PCP - General 12/24/20 07/19/22 Unknown, Notinfile PCP - General 07/20/22 07/20/22 Cedrick Barriga MD [address] [place] [address] PCP - General Family Medicine 07/21/22 11/12/22 Lian Melchor MD [address] [place] [address] PCP - General Gastroenterology 11/13/22 Cedrick Barriga MD [address] [place] [address] 07/20/22 08/11/22 Olya Corcoran RN Independent Marketing Consultant 08/10/1812/09 Dequan Frye MD Referring Physician Transplant Hepatology 08/19/18 Melissa Schumacher, ETELVINA [address] [address] Independent Marketing Consultant 01/29/20 documented as of this encounter
--- OUTSIDE RECORDS SUMMARY | 2025-01-29 15:35 | XMS_ITS ---
Author Organization [facility] Address [address] [place] [address] Care Team Providers Care Flask Fitter Name Role Phone Dequan Frye MD Unavailable [phone] Lian Melchor MD Primary Care Provider Active Problems Patient Care Coordination No te Formatting of this note migh t be different from the original. Best number to call is [phone]. Cell phone has been turned off as [...] underlying chronic liver disease. Recent admission to [facility] for status epilepticus reviewed from June 2024 [...] (06/11/2022): Added automatically from request for surgery [id number] Assessment & Plan (08/24/2024 5:50 PM CDT): [...] underlying chronic liver disease. Recent admission to [facility] for status epilepticus reviewed from June 2024 Continue home Keppra 1000 mg b.i.d. (he self-reduced his dose from 200 mg BID to 1000 mg BID) Seizure precautions He he and his both that he drinks a significant amount of alcohol. Stop formal alcohol withdrawal monitoring Osteopenia 09/21/2018 Chronic viral hepatitis B 08/31/2018 Overview (08/31/2018): Added automatically from request for surgery [id number] Hepatocellular carcinoma 08/09/2018 Assessment & Plan (08/24/2024 [...]
--- OUTSIDE RECORDS SUMMARY | 2025-01-29 15:35 | XMS_ITS | Encounter Summary ---
Author Organization [facility] Address [address] [place] [address] Care Team Providers Care Business Management Professor Name Role Phone Jazmin Shankar MD Primary Care Provider [phone] Cedrick Barriga MD Primary Care Provider [phone] Unknown, Notinfile Primary Care Provider Unavail able Cedrick Barriga MD Primary Care Provider [phone] Cedrick Barriga MD Unavailable [phone] Olya Corocran RN Unavailable [phone] Dequan Frye MD Unavailable [phone] Lian Melchor MD Primary Care Provider Encounter Details Date Type Department Care Team (Late st Contact Info) Description 04/10/2020 Telephone [facility] Radiology [address] [facility] [place] [address] Fabian Almaguer MD [address] [facility] [address] [place] [address] Social History Tobacco Use Types Packs/Day Years Used Date Smoking Tobacco: Every Day Cigarettes 0.2 42.9 Started: 1984 Smokeless Tobacco: Never Comments:trying to quit-smok ing Alcohol Use Standard Drinks/Week Comments Not Currently 0 (1 standard drink = 0.6 oz pur e alcohol) denies Sex and Gender Information Value Date Recorded Sex Assigned at Not on file 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 Gender Identity Not on file Sexual Orientation [...] COVID: Suspected 03/01/2023 03/01/2023 03/01/2023 10:12 PM ART LIBRARIAN RSV, droplet 03/01/2023 03/01/2023 03/08/2023 3:05 AM ART LIBRARIAN documented as of this encounter Care Teams Business Management Professor Relationship Specialty Start Date End Date Jazmin Shankar MD PCP - General Family Medicine 08/09/18 12/23/20 Cedrick Barriga MD [address] [place] [address] PCP - General 12/24/20 07/19/22 Unknown, Notinfile PCP - General 07/20/22 07/20/22 Cedrick Barriga MD [address] [place] [address] PCP - General Family Medicine 07/21/22 11/12/22 Lian Melchor MD [address] [place] [address] PCP - General Gastroenterology 11/13/22 Cedrick Barriga MD [address] [place] [address] 07/20/22 08/11/22 Olya Corcoran, RN Marine Tower Operator 08/10/1812/09 Dequan Frye MD Referring Physician Transplant Hepatology 08/19/18 documented as of this encounter
--- OUTSIDE RECORDS SUMMARY | 2025-01-29 15:35 | XMS_ITS | Encounter Summary ---
Author Organization [facility] Address [address] [place] [address] Phone Care Team Providers Care Senior Front End Engineer Name Role Phone Dequan Frye MD Unavailable [phone] Lian Melchor MD Primary Care Provider Encounter Details Date Type Department Care Team (Late st Contact Info) Description 11/27/[address] 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
--- OUTSIDE RECORDS SUMMARY | 2025-01-29 15:35 | XMS_ITS | Encounter Summary ---
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
--- NOTE | 2025-01-29 16:00 | PC.NURSE ---
Patient continuously jumping out of bed and removing leads. Patient placed on a bed alarm. RN helped patient use the urinal and helped back to bed.
--- NOTE | 2025-01-29 17:10 | PC.NURSE ---
Patient moved to a private room because of constant getting out of bed and pulling out his cardiac leads.
[2025-01-29 17:14] LABS: Hematocrit 34.5 % (42.0-52.0); Hemoglobin 11.6 g/dL (14.0-18.0); Mean Corpuscular HGB Conc 33.6 g/dl (32-36); Mean Corpuscular Hemoglobin 30.9 pg (26-34); Mean Corpuscular Volume 91.8 fl (80-100); Platelet Count Result 181 k/mm3 (150-375); Red Blood Count 3.76 M/mm3 (4.6-6.20); White Blood Count 7.4 K/mm3 (4.5-10.0)
[2025-01-29 17:20] LABS: Add Urine Microscopic? YES; Appearance Urine Cloudy (Clear); Glucose Urine UA Negative (Negative); Leukocyte Esterase Ur Negative LEU/UL (Negative); Nitrate Urine Negative (Negative); Non Pathogenic Casts 0-2; Specific Grav Ur 1.016 (1.001-1.035)
[2025-01-29 17:23] LABS: Alanine Aminotransferase 70 U/L (6-50); Albumin Level 4.1 g/dL (3.5-5.1); Alkaline Phosphatase 512 U/L (38-126); Anion Gap 12 mmol/L (4-12); Aspartate Amino Transferase 54 U/L (17-59); Bilirubin,Total 1.1 mg/dL (0.2-1.3); Blood Urea Nitrogen 10 mg/dL (9-20); Calcium 10.0 mg/dL (8.4-10.2); Carbon Dioxide 20 mmol/L (22-30); Chloride 111 mmol/L (98-107); Estimated Glomerular Filt Rate > 60; Glucose 136 mg/dL (65-110); Potassium 3.4 mmol/L (3.4-5.0); Sodium 143 mmol/L (137-145); Total Protein 8.4 g/dL (6.3-8.2)
[2025-01-29] MEDS: MIDAZOLAM HCL (*CRX) 2 MG/2 ML VIAL 5 MG IV PUSH ×2 (17:25→18:49)
--- NOTE | 2025-01-29 17:25 | PC.NURSE ---
in room stating patient is having a seizure. MD notified.
[2025-01-29 17:34] LABS: Cannabinoid Screen Urine Positive (Negative); Lymphocytes Absolute Manual 0.29 K/mm3 (1.1-4.5); Lymphocytes Percent Manual 4.0 % (18-44); Monocytes Absolute Manual 0.29 K/mm3 (0.1-0.90); Monocytes Percent Manual 4 % (3-9); Neutrophils Percent Manual 92 % (46-73); Total Cells Counted 100
[2025-01-29 17:36] LABS: Anisocytosis 2+; Schistocytes None Seen
[2025-01-29 17:37] LABS: Band Neutrophils Percent 0 % (0-6); Neutrophils Absolute Manual 6.80 K/mm3 (1.3-6.7)
--- NOTE | 2025-01-29 19:35 | ED.SEIZURE ---
HPI - Seizure General Chief Complaint: Seizure Stated Complaint: seizure Time Seen by Provider: 01/29/25 14:30 History of Present Illness HPI Narrative: Patient with history of seizures on Keppra, remote history of alcohol use disorder presents here with a seizure, he has been taking his medications as prescribed, denies recent alcohol use. Is reporting nausea Seizure History: Yes (narcotic and alcohol withdrawal) Related Data Home Medications ?Medication ?Instructions ?Recorded ?Confirmed ?Last Taken ?Type gabapentin 800 mg tablet 800 mg PO QID 02/16/20 12/09/24 12/07/23 History tenofovir disoproxil fumarate 300 300 mg PO DAILY 02/16/20 12/09/24 06/16/22 History mg tablet tamsulosin 0.4 mg capsule 0.4 mg PO DAILY 01/11/21 12/09/24 12/07/23 History hydrocodone 5 mg-acetaminophen 325 1 tablet PO TID PRN Pain, Moderate 08/13/22 12/09/24 12/07/23 History mg tablet budesonide 160 mcg-glycopyr 9 2 inh inhalation BID 12/09/24 12/09/24 Unknown History mcg-formot 4.8 mcg/actuation HFA inhaler (Breztri Aerosphere) ferrous sulfate 325 mg (65 mg 325 mg PO DAILY 12/09/24 12/09/24 Unknown History iron) tablet (Feosol) levetiracetam 1,000 mg tablet 1,500 mg PO BID 12/09/24 12/09/24 Unknown History (Keppra) nortriptyline 10 mg capsule 10 mg PO QHS 12/09/24 12/09/24 Unknown History pantoprazole 40 mg tablet,delayed 40 mg PO DAILY 12/09/24 12/09/24 Unknown History release topiramate 50 mg tablet 50 mg PO Q12H 12/09/24 12/09/24 Unknown History Allergies Allergy/AdvReac Type Severity Reaction Status Date / Time hornet venom Allergy Unknown Unknown Verified 12/09/24 15:13 strawberry Allergy Unknown Unknown Verified 12/09/24 15:13 ciprofloxacin Allergy Unknown Verified 12/09/24 15:13 fentanyl Allergy Unknown Verified 12/09/24 15:13 metronidazole AdvReac Unknown Nausea And Verified 12/09/24 15:13 Vomiting Review of Systems Review of Systems: All systems reviewed & are unremarkable except as noted in HPI and below PMFSH Past Medical History Medical History Alcohol abuse Most recent use 10/29/2020 Chronic pain syndrome Hx of peptic ulcer as a child GERD (gastroesophageal reflux disease) History of hepatitis B Hepatocellular carcinoma COPD (chronic obstructive pulmonary disease) Cirrhosis Hepatocellular carcinoma radiation treatment Seizure Hepatic encephalopathy Surgical History Surgical History History of tibial fracture requiring surgical repair. History of cholecystectomy Family History Family History Father Hypertension Cerebrovascular accident Myocardial infarct Sibling Hypertension Sibling Hypertension Father Hypertension Cerebrovascular accident Family history of coronary artery disease Sibling Hypertension Social History Social History Social History: Smokes 1/2 ppd since 17yo. He is trying to quit. Lives at home with his and children. He is a full code. The patient had 7 children. He is on disability. The patient continues to use marijuana gummies. He no longer uses cocaine or other illicit drugs. 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 Alcohol intake: never Alcohol use details: Alcohol use noted 10/29/2020 with etoh level of 24. Substance use: current Substance use type: marijuana Other substance usage details: has not had alcohol in 16 years/ was never a heavy drinker per Last use: 12/08/24 Lack of Transportation: No Lack of Food: Never True Current Housing: I Have Housing Concerned About Future Housing: No Difficulty Paying Gas/Electric Bills: No Difficulty Paying for Meds: No Currently Unemployed: No Education: High School Diploma/GED Difficulty w/ Childcare or Family Care: No Living arrangements: with family Occupation/Education: other Gender identity (if verbalized by the patient): Male Sexual Orientation (if Verbalized by the Patient): Straight or Heterosexual Spiritual care concerns: No Agree to blood products: Yes Exam Narrative: EXAMINATION OF ORGAN SYSTEMS/BODY AREAS: Constitutional: Vital signs per nursing GENERAL: Looks very nauseous HEAD: Normal with no signs of head trauma. EYES: EOMI, conjunctiva normal ENT: Hearing grossly intact LUNGS: Nonlabored breathing. HEART: [Regular rate and rhythm] ABD: [Soft], [nontender to palpation] EXT: Normal range of motion SKIN: [No rashes or lesions.] NEURO: [Alert but slightly slow to speech, as if postictal. No gross focal sensory or strength deficits.] Course Vital Signs Vital signs: Vital Signs Temperature 98.1 F 01/29/25 14:28 Pulse Rate 83 01/29/25 14:28 Respiratory Rate 30 H 01/29/25 14:28 Blood Pressure 146/79 H 01/29/25 14:28 Pulse Oximetry 100 01/29/25 14:28 Oxygen Delivery Room Air 01/29/25 14:28 Temperature 98.1 F 01/29/25 14:28 Pulse Rate 89 01/29/25 18:50 Respiratory Rate 18 01/29/25 18:50 Blood Pressure 141/81 H 01/29/25 18:50 Pulse Oximetry 98 01/29/25 18:50 Oxygen Delivery Room Air 01/29/25 17:26 MDM MDM Narrative Medical decision making narrative: 59-year-old male presenting with breakthrough seizures occurring today. Accu-Chek is normal. Seizure precautions are initiated. Patient was loaded with their home medication. Unfortunately, when I went to re-evaluate and discharge the patient, he had another seizure, I did ever give a dose of Versed. And on re-evaluation, he is postictal again, family is now at bedside and she came over to let me know that patient was having another seizure. EKG - 12-Lead: Performed at 1420. Interpreted by me. [Sinus rhythm]. Rate 69. [Normal] axis. WV-interval [normal]. QRS duration [normal]. QTc [normal]. [No ST segment elevation or depression]. [T-wave normal]. Impression: No EKG evidence of acute ischemia or dysrhythmia. He is given a 2nd dose of Versed, at this point I do feel he needs to be admitted given the multiple seizures. He did respond well to this, it is now postictal no longer seizing. Discussed with hospitalist, neurologist for admission. Discussed with family who is agreeable. Differential Diagnosis Differential Diagnosis: Seizure, alcohol withdrawal, intoxication, arrhythmia Lab Data 01/29/25 17:07 01/29/25 17:07 Labs: Lab Results 01/29/25 01/29/25 Range/Units 14:33 17:07 WBC 7.4 (4.5-10.0) K/mm3 RBC 3.76 L (4.6-6.20) M/mm3 Hgb 11.6 L (14.0-18.0) g/dL Hct 34.5 L (42.0-52.0) % MCV 91.8 (80-100) fl MCH 30.9 (26-34) pg MCHC 33.6 (32-36) g/dl RDW 16.2 H (11.5-14.5) % Plt Count 181 D (150-375) k/mm3 MPV 11.5 H (7.4-10.4) fl Immature Gran % (Auto) Not Reportable Neut % (Auto) Not Reportable Lymph % (Auto) Not Reportable Mitchell % (Auto) Not Reportable Eos % (Auto) Not Reportable Baso % (Auto) Not Reportable Lymph # (Auto) Not Reportable Mitchell # (Auto) Not Reportable Eos # (Auto) Not Reportable Baso # (Auto) Not Reportable Abs Immat Gran (auto) Not Reportable Absolute Neuts (auto) Not Reportable Absolute Nucleated RBC Not Reportable Total Counted 100 Neutrophils % (Manual) 92 H (46-73) % Band Neutrophils % 0 (0-6) % Lymphocytes % (Manual) 4.0 L (18-44) % Monocytes % (Manual) 4 (3-9) % Nucleated RBC % Not Reportable Abs Neuts (Manual) 6.80 H (1.3-6.7) K/mm3 Abs Lymphs (Manual) 0.29 L (1.1-4.5) K/mm3 Abs Monocytes (Manual) 0.29 (0.1-0.90) K/mm3 Platelet Estimate Adequate (Adequate) Anisocytosis 2+ Schistocytes None seen Sodium 143 (137-145) mmol/L Potassium 3.4 (3.4-5.0) mmol/L Chloride 111 H (98-107) mmol/L Carbon Dioxide 20 L (22-30) mmol/L Anion Gap 12 (4-12) mmol/L BUN 10 (9-20) mg/dL Creatinine 0.99 (0.7-1.3) mg/dL Estim Creat Clear Calc Not Reportable Estimated GFR > 60 (59 - ) Glucose 136 H (65-110) mg/dL POC Capillary Glucose 144 H (65-105) mg/dl Calcium 10.0 (8.4-10.2) mg/dL Total Bilirubin 1.1 (0.2-1.3) mg/dL AST 54 (17-59) U/L ALT 70 H (6-50) U/L Alkaline Phosphatase 512 H (38-126) U/L Total Protein 8.4 H (6.3-8.2) g/dL Albumin 4.1 (3.5-5.1) g/dL Urine Color Yellow (Yellow) Urine Appearance Cloudy H (Clear) Urine pH 7.5 (5.0-9.0) Ur Specific [place] 1.016 (1.001-1.035) Urine Protein 1+ H (Negative) mg/dL Urine Glucose (UA) Negative (Negative) mg/dL Urine Ketones Negative (Negative) mg/dL Ur Blood (Man) Negative (Negative) Urine Nitrate Negative (Negative) Urine Bilirubin Negative (Negative) Urine Urobilinogen 1.0 (<2.0) mg/dL Leukocyte Esterase Rfl Negative (Negative) MARILIA/UL Urine RBC 0-2 (0-2) /hpf Urine WBC 0-5 (0-3) /hpf Ur Squamous Epith Cells None seen (Few) /hpf Urine Bacteria None seen /hpf Urine Casts 0-2 Urine Opiates Screen Negative (Negative) Urine Methadone Screen Negative (Negative) Ur Barbiturates Screen Negative (Negative) Ur Phencyclidine Scrn Negative (Negative) Ur Amphetamine Screen Negative (Negative) U Benzodiazepines Scrn Negative (Negative) Urine Cocaine Screen Negative (Negative) U Cannabinoids Screen Positive A (Negative) Ethyl Alcohol < 10 (<10) mg/dL Imaging Data Radiologist's impression: ITS Impressions Head CT 01/29/25 16:20 Impression: 1. Motion artifact limits evaluation. No acute infarct or hemorrhage Critical Care Time Critical Care Time Critical Care Time: Yes Indication: Status epilepticus Initial evaluation, discuss w/ involved parties, attempting to gather old records: 10 minutes Documenting medical record: 5 minutes Review of results (EKG's, labs, imaging): 5 minutes Serial repeat bedside evaluation: 15 minutes Discussing case with multiple memebers of the care team and consultants: 5 minutes Total Critical Care Time: 40 Discharge Plan Discharge Clinical Impression: Status epilepticus Patient Disposition: Still a Patient Condition: Serious Patient Language: Yi Prescriptions: No Action ondansetron 4 mg tablet,disintegrating 4 mg PO Q6H PRN (Reason: nausea and vomiting) 3 Days Qty: 12 0RF albuterol sulfate 90 mcg/actuation HFA aerosol inhaler 2 puff inhalation Q4-6H PRN (Reason: shortness of breath or wheezing) 30 Days Qty: 8.5 0RF hydrocodone-acetaminophen 5-325 mg tablet 1 tablet PO TID PRN (Reason: Pain, Moderate) tamsulosin 0.4 mg capsule 0.4 mg PO DAILY acetaminophen [Tylenol Extra Strength] 500 mg tablet 1,000 mg PO TID PRN (Reason: pain) Qty: 30 0RF nortriptyline 10 mg capsule 10 mg PO QHS pantoprazole 40 mg tablet,delayed release (DR/EC) 40 mg PO DAILY topiramate 50 mg tablet 50 mg PO Q12H Breztri Aerosphere 160-9-4.8 mcg/actuation HFA aerosol inhaler 2 inh inhalation BID levetiracetam [Keppra] 1,000 mg tablet 1,500 mg PO BID ferrous sulfate [Feosol] 325 mg (65 mg iron) tablet 325 mg PO DAILY potassium chloride 20 mEq packet 20 meq PO DAILY Qty: 5 0RF cefdinir 300 mg capsule 300 mg PO Q12H Qty: 8 0RF gabapentin 800 mg Tablet 800 mg PO QID tenofovir disoproxil fumarate 300 mg Tablet 300 mg PO DAILY Follow-up/Referrals: Jn,Roxy Quevedo, [employer] [Primary Care Provider, Unknown]
--- NOTE | 2025-01-29 19:52 | WPCEDHO ---
ED Hand Off Checklist All vitals saved:yes IV Site documented:yes All med administrations documented:yes Triage Note Triage Note Pt BIBEMS, coming from home. 01/29/25 14:28 Family states he had a possible seizure this morning. Patient is normally A/Ox4, Patient now alert , postictal. Family also stated he had abdominal pain last night, nausea and vomiting, light headedness. 174/80, 85 HR, 97% RA . Allergies hornet venom Allergy (Unknown, Verified 12/09/24 15:13) Unknown strawberry Allergy (Unknown, Verified 12/09/24 15:13) Unknown ciprofloxacin Allergy (Verified 12/09/24 15:13) Unknown fentanyl Allergy (Verified 12/09/24 15:13) Unknown metronidazole Adverse Reaction (Unknown, Verified 12/09/24 15:13) Nausea And Vomiting Family History (Last Reviewed 12/10/24 @ 14:08 by Ross Hightower MD) Father Hypertension Cerebrovascular accident Myocardial infarct Sibling Hypertension Sibling Hypertension Father Hypertension Cerebrovascular accident Family history of coronary artery disease Sibling Hypertension Administered/Completed Medications Discontinued Medications Droperidol (Droperidol 5 Mg/2 Ml Vial) 2.5 mg IV PUSH ONCE STA Stop: 01/29/25 14:38 Last Admin: 01/29/25 14:47 Dose: 2.5 mg Documented By: BAUDILIO Levetiracetam (Keppra Iv) 1,500 mg in 100 mls @ 400 mls/hr IVPB ONCE STA Stop: 01/29/25 14:51 Last Infusion: 01/29/25 15:07 Dose: Infused Documented By: Admin: 01/29/25 14:48 Dose: 400 mls/hr Documented By: BAUDILIO Sodium Chloride (Normal Saline Iv) Confirm Administered Dose 50 mls @ as directed .ROUTE .STK-MED ONE Stop: 01/29/25 14:44 Last Infusion: 01/29/25 15:08 Dose: Infused Documented By: Admin: 01/29/25 14:48 Dose: 100 mls/hr Documented By: BAUDILIO Levetiracetam (Keppra Iv) 1,500 mg in 100 mls @ 400 mls/hr IVPB ONCE STA Stop: 01/29/25 18:29 Last Infusion: 01/29/25 19:09 Dose: Infused Documented By: Admin: 01/29/25 18:49 Dose: 400 mls/hr Documented By: BAUDILIO Midazolam HCl (Midazolam Hcl (*Crx) 2 Mg/2 Ml Vial) 5 mg IV PUSH ONCE ONE Stop: 01/29/25 17:20 Last Admin: 01/29/25 17:25 Dose: 2 mg Documented By: BAUDILIO Midazolam HCl (Midazolam Hcl (*Crx) 2 Mg/2 Ml Vial) 5 mg IV PUSH ONCE ONE Stop: 01/29/25 18:10 Last Admin: 01/29/25 18:49 Dose: 5 mg Documented By: BAUDILIO Notes 01/29/25 17:25 (created 01/29/25 17:27) Nurse Note by Zoya Joshi. in room stating patient is having a seizure. notified. Initialized on 01/29/25 17:27 - END OF NOTE 01/29/25 17:10 (created 01/29/25 17:27) Nurse Note by Zoya Joshi. Patient moved to a private room because of constant getting out of bed and pulling out his cardiac leads. Initialized on 01/29/25 17:27 - END OF NOTE 01/29/25 16:00 (created 01/29/25 17:28) Nurse Note by Zoya Joshi. Patient continuously jumping out of bed and removing leads. Patient placed on a bed alarm. RN helped patient use the urinal and helped back to bed. Initialized on 01/29/25 17:28 - END OF NOTE Interventions/Assessments IV / Saline Lock, Insert Start: 01/29/25 14:08 Freq: Status: Active Protocol: Document 01/29/25 14:48 [facility] (Rec: 01/29/25 14:48 [facility] [id number]) IV Assessment Peripheral Access Left Forearm IV Catheter Access Initiated IV Insertion Date 01/29/25 IV Insertion Time 14:48 Catheter Gauge 20 IV Site Assessment WNL IV Care and WNL Maintenance Last Vital Signs Temperature 98.1 F 01/29/25 14:28 Pulse Rate 76 01/29/25 19:45 Respiratory Rate 18 01/29/25 19:45 Pulse Oximetry 100 01/29/25 19:45 Blood Pressure 134/74 01/29/25 19:45 Blood Pressure Mean 94 01/29/25 19:45 Oxygen Delivery Room Air 01/29/25 17:26 Weight 51.7 kg 01/29/25 14:28 Last Result - Abnormals Only RBC 3.76 M/mm3 (4.6-6.20) L 01/29/25 17:07 Hgb 11.6 g/dL (14.0-18.0) L 01/29/25 17:07 Hct 34.5 % (42.0-52.0) L 01/29/25 17:07 RDW 16.2 % (11.5-14.5) H 01/29/25 17:07 MPV 11.5 fl (7.4-10.4) H 01/29/25 17:07 Neutrophils % (Manual) 92 % (46-73) H 01/29/25 17:07 Lymphocytes % (Manual) 4.0 % (18-44) L 01/29/25 17:07 Abs Neuts (Manual) 6.80 K/mm3 (1.3-6.7) H 01/29/25 17:07 Abs Lymphs (Manual) 0.29 K/mm3 (1.1-4.5) L 01/29/25 17:07 Chloride 111 mmol/L (98-107) H 01/29/25 17:07 Carbon Dioxide 20 mmol/L (22-30) L 01/29/25 17:07 Glucose 136 mg/dL (65-110) H 01/29/25 17:07 POC Capillary Glucose 144 mg/dl (65-105) H 01/29/25 14:33 ALT 70 U/L (6-50) H 01/29/25 17:07 Alkaline Phosphatase 512 U/L (38-126) H 01/29/25 17:07 Total Protein 8.4 g/dL (6.3-8.2) H 01/29/25 17:07 Urine Appearance Cloudy (Clear) H 01/29/25 17:07 Urine Protein 1+ mg/dL (Negative) H 01/29/25 17:07 U Cannabinoids Screen Positive (Negative) A 01/29/25 17:07 Most Recent Suicide Severity Rating Suicide Severity Rating NO RISK INDICATED 01/29/25 14:28
--- NOTE | 2025-01-29 20:50 | ADMGEN ---
This patient, Ronan Baez, was admitted to Medical Room 257-01. Patient/family oriented to hospital policies and general routines including ID bracelet, bed and alarms, visiting hours, pain management, procedures, bathroom and other care routines, personal items, smoking policy, room service/diet, and visiting hours. Information on how to activate the Rapid Response Team has been discussed. Patient/Family are encouraged to report perceived risks to care and to ask questions if they do not understand what they are told or what they should do.
--- NOTE | 2025-01-29 22:57 | P.HP_ITS ---
H&P: HPI History of Present Illness Date/Time: 01/29/25 190 Chief Complaint: Seizure Narrative: 59-year-old male past medical history of hepatocellular carcinoma successfully treated with TACE, hepatitis-B, COPD, cirrhosis, remote history of methamphetamine use presents to the ED on 01/29/2025 after what describes as a seizure at home. Patient has been in the ED or admitted multiple times since 2019 for breakthrough seizures and nausea and vomiting. He follows neurology and hepatology at [place]. Patient's , who is at bedside, states the patient takes his Keppra as prescribed. states the patient began having nausea and vomiting yesterday and believes he had a seizure as he appeared altered to her and was weaker than usual. Patient fell into a wall yesterday causing a skin tear to his left forearm and required help from his son-in-law returning from the bathroom. Patient loaded with Keppra in the ED. when ED provider went to re-evaluate and discharge the patient, he had another s eizure. 5mg Versed administered. Postictal on re-evaluation. Family arrived about an hour later and came out of the room to inform staff he was having another seizure. Another 5 mg Versed given. His first seizure appears to have occurred in April of 2019. At that time it was thought to be related to opioid withdrawal as patient had a recent decrease in his home opioid medication. Most recent admission was 12/09/2024 through 12/11/2024. Initial vital signs 146/79, HR 83, respirations 30, afebrile and 100% on room air. Hematology reveals baseline anemia. Chemistry with chloride 111, carbon dioxide 20, glucose 136, ALT 70, alk-phos 512. UA negative for infection. UDS positive for cannabinoids. EKG reveals sinus rhythm. No significant change to previous. Head CT with motion artifact. No acute infarct or hemorrhage. Review of Systems Review of Systems: ROS unobtainable: Yes unobtainable due to mental status PMFSH Past Medical History Medical History Alcohol abuse Most recent use 10/29/2020 Chronic pain syndrome Hx of peptic ulcer as a child GERD (gastroesophageal reflux disease) History of hepatitis B Hepatocellular carcinoma COPD (chronic obstructive pulmonary disease) Cirrhosis Hepatocellular carcinoma radiation treatment Seizure Hepatic encephalopathy Surgical History Surgical History History of tibial fracture requiring surgical repair. History of cholecystectomy Family History Family History Father Hypertension Cerebrovascular accident Myocardial infarct Sibling Hypertension Sibling Hypertension Father Hypertension Cerebrovascular accident Family history of coronary artery disease Sibling Hypertension Social History Social History Social History: Smokes 1/2 ppd since 17yo. He is trying to quit. Lives at home with his and children. He is a full code. The patient had 7 children. He is on disability. The patient continues to use marijuana gummies. He no longer uses cocaine or other illicit drugs. 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 Alcohol intake: former Drinks per week: 0 Alcohol use details: Alcohol use noted 10/29/2020 with etoh level of 24. Substance use: current Substance use type: marijuana Other substance usage details: hx of cocaine, meth 15 years ago Last use: 15 years ago Lack of Transportation: YES Lack of Food: Never True Current Housing: I Have Housing Concerned About Future Housing: No Difficulty Paying Gas/Electric Bills: YES Difficulty Paying for Meds: YES Currently Unemployed: No Education: High School Diploma/GED Difficulty w/ Childcare or Family Care: No Living arrangements: with family Occupation/Education: other Gender identity (if verbalized by the patient): Male Sexual Orientation (if Verbalized by the Patient): Straight or Heterosexual Spiritual care concerns: No Agree to blood products: Yes Meds Home Medications and Allergies Home Medications ?Medication ?Instructions ?Recorded ?Confirmed ?Type gabapentin 800 mg tablet 800 mg PO QID 02/16/2001/29 History tenofovir disoproxil fumarate 300 300 mg PO DAILY 01/2901/29/25 History mg tablet tamsulosin 0.4 mg capsule 0.4 mg PO DAILY 01/11/2103/25 History hydrocodone 5 mg-acetaminophen 325 1 tablet PO TID PRN Pain, Moderate 08/13/22 01/29/25 History mg tablet albuterol sulfate 90 mcg/actuation 2 puff inhalation Q 4-6H PRN 02/22/24 01/29/25 Rx aerosol inhaler shortness of breath or wheez ing 30 days #8.5 grams ondansetron 4 mg disintegrating 4 mg PO Q6H PRN nausea and 02/22/24 01/29/25 Rx tablet vomiting 3 days #12 tabs acetaminophen 500 mg tablet 1,000 mg (2 x 500 mg) PO T ID PRN 05/07/24 01/29/25 Rx (Tylenol Extra Strength) pain #30 tabs budesonide 160 mcg-glycopyr 9 2 inh inhalation BID 01/2301/29/25 History mcg-formot 4.8 mcg/actuation HFA inhaler (Breztri Aerosphere) ferrous sulfate 325 mg (65 mg 325 mg PO DAILY 12/09/24 01/29/25 History iron) tablet (Feosol) levetiracetam 1,000 mg tablet 1,500 mg PO BID 12/09/24 01/29/25 History (Keppra) nortriptyline 10 mg capsule 10 mg PO QHS 12/09/2403/25 History pantoprazole 40 mg tablet,delayed 40 mg PO DAILY 12/0901/29/25 History release topiramate 50 mg tablet 50 mg PO Q12H PRN headache 1 01/29/25 History nzmykco-eqefaayxunslk-ghhbencb 250 1 tablet PO Q4-6H P RN headache 01/29/25 01/29/25 History mg-250 mg-65 mg tablet (Excedrin Extra Strength) Allergies Allergy/AdvReac Type Severity Reaction Status Date / Time hornet venom Allergy Unknown Unknown Verified 01/29/25 21:13 strawberry Allergy Unknown Unknown Verified 01/29/25 21:13 ciprofloxacin Allergy Unknown Verified 01/29/25 21:13 fentanyl Allergy Unknown Verified 01/29/25 21:13 metronidazole AdvReac Unknown Nausea And Verified 01/29/25 21:13 Vomiting Vital Signs Vital Signs - 24 hr 01/29/25 14:28 01/29/25 14:31 01/29/25 17:15 Temperature 98.1 F Pulse Rate 83 103 H Respiratory Rate 30 H 31 H Blood Pressure 146/79 H 173/85 H Pulse Oximetry 100 94 Oxygen Delivery Room Air Room Air 01/29/25 17:26 01/29/25 17:30 01/29/25 18:00 Temperature Pulse Rate 92 96 Respiratory Rate 25 H 16 Blood Pressure 155/85 H 154/43 H Pulse Oximetry 98 99 Oxygen Delivery Room Air 01/29/25 18:50 01/29/25 19:45 01/29/25 20:51 Temperature Pulse Rate 89 76 82 Respiratory Rate 18 18 16 Blood Pressure 141/81 H 134/74 Pulse Oximetry 98 100 99 Oxygen Delivery Room Air 01/29/25 20:57 Temperature 98.3 F Pulse Rate 82 Respiratory Rate 16 Blood Pressure 144/83 H Pulse Oximetry 99 Oxygen Delivery Exam Narrative: GENERAL: Very thin HEAD: Normocephalic, atraumatic. EYES: Conjunctivae clear. NOSE: Normal no drainage. THROAT: Pharynx clear, no exudate. NECK: Trachea midline. No adenopathy, no masses. RESPIRATORY: Airway patent, respirations nonlabored. CTA. CARDIOVASCULAR: Regular rate and rhythm GASTROINTESTINAL: Abdomen is soft and nontender. No organomegaly. Bowel sounds normal in all quadrants. GENITOURINARY: Defer MUSCULOSKELETAL: Moves all extremities. No gross deformities. SKIN: Warm, dry, normal color. Scattered ecchymosis NEURO: A&O X4. Speech slow. Very drowsy PSYCHIATRIC: Normal interaction Results Labs Labs: Short CBC 01/29/25 Range/Units 17:07 WBC 7.4 (4.5-10.0) K/mm3 Hgb 11.6 L (14.0-18.0) g/dL Hct 34.5 L (42.0-52.0) % Plt Count 181 D (150-375) k/mm3 BMP 01/29/25 17:07 Sodium 143 Potassium 3.4 Chloride 111 H Carbon Dioxide 20 L BUN 10 Creatinine 0.99 Glucose 136 H Calcium 10.0 Liver Function 01/29/25 Range/Units 17:07 Total Bilirubin 1.1 (0.2-1.3) mg/dL AST 54 (17-59) U/L ALT 70 H (6-50) U/L Alkaline Phosphatase 512 H (38-126) U/L Albumin 4.1 (3.5-5.1) g/dL Urine 01/29/25 Range/Units 17:07 Urine Color Yellow (Yellow) Urine Appearance Cloudy H (Clear) Urine pH 7.5 (5.0-9.0) Ur Specific [place] 1.016 (1.001-1.035) Urine Protein 1+ H (Negative) mg/dL Urine Glucose (UA) Negative (Negative) mg/dL Quality VTE Prophylaxis VTE prophylaxis: mechanical ordered Assessment and Plan Assessment and plan (1) Breakthrough seizure: Code(s): G40.919 - Epilepsy, unspecified, intractable, without status epilepticus Status: Acute Assessment and Plan: Patient with frequent admissions for breakthrough seizures. Reportedly had 1 seizure at home and 2 in the ED. concern for noncompliance or seeking behavior. Patient is documented to have left AMA in the past and has force himself to vomit in the past by sticking his finger down his throat. Patient follows with Dr. Zaina Spangler for hepatology and Dr. David Kumar for neurology at [place]. -continue home dose Keppra -neurology consult -seizure precautions -requested neurology records from [place] (2) Nausea & vomiting: Qualifiers: Vomiting Intractability: non-intractable Vomiting type: unspecified Qualified Code(s): R11.2 - Nausea with vomiting, unspecified Code(s): R11.2 - Nausea with vomiting, unspecified Status: Acute Assessment and Plan: Several past ED visits or admissions with complaints of nausea/vomiting as reported by patient and his . -Zofran p.r.n. -continue pantoprazole daily (3) BPH (benign prostatic hyperplasia): Qualifiers: Lower urinary tract symptom presence: unspecified whether lower urinary tract symptoms present Qualified Code(s): N40.0 - Benign prostatic hyperplasia without lower urinary tract symptoms Code(s): N40.0 - Benign prostatic hyperplasia without lower urinary tract symptoms Status: Chronic Assessment and Plan: Continue tamsulosin (4) Cirrhosis of liver: Qualifiers: Ascites presence: without ascites Hepatic cirrhosis type: unspecified hepatic cirrhosis Qualified Code(s): K74.60 - Unspecified cirrhosis of liver Code(s): K74.60 - Unspecified cirrhosis of liver Status: Chronic Assessment and Plan: History of HBV. Patient not in acute liver failure. Followed by hepatology at [place]. -continue to follow-up with her health outreach worker Dr. Spangler -continue to avoid all alcohol -continue tenofovir disoproxil fumarate Plan Diet: Regular GI prophylaxis: Pantoprazole DVT prophylaxis: SCDs lines/drains: PIV Fluids: NA Code status: Full Prior Studies I have reviewed the following patient records and this information was taken into consideration when formulating the assessment and plan.: previous labs, previous ER visits, previous hospitalizations and previous clinic visits Time Spent with Patient Time with patient: 45 - 74 minutes Hospitalist [facility] Advance Care Plan I have confirmed that the patient's Advanced Care Plan is present, code status is documented, or surrogate decision maker is listed in patient medical record.: Yes Medication Reconciliation I have utilized all available resources to obtain, update and review the patients current medications (includes all prescriptions, OTC, herbals, cannabis, and nutritional supplements).: Yes
[2025-01-29] MEDS: GABAPENTIN 400 MG CAPSULE 800 MG PO (23:43)
[2025-01-29] MEDS: NORTRIPTYLINE HCL 10 MG CAPSULE PO (23:43)
[2025-01-30] MEDS: HYDROcodone/acetaminophen (*CRX) 5-325 MG TABLET 1 TAB PO ×2 (01:57→09:56)
[2025-01-30 04:24] VITALS: BP 144/75; PULSE 75; RESP 18; TEMP 36.6; O2SAT 97
[2025-01-30 04:39] LABS: Hematocrit 32.2 % (42.0-52.0); Hemoglobin 10.8 g/dL (14.0-18.0); Immature Granulocyte Percent A 0.5 % (0-0.5); Lymphocytes Absolute Auto 0.51 K/mm3 (0.9-3.2); Mean Corpuscular HGB Conc 33.5 g/dl (32-36); Mean Corpuscular Hemoglobin 30.8 pg (26-34); Mean Corpuscular Volume 91.7 fl (80-100); Nucleated Red Blood Cells Absolute Auto 0.000 K/mm3 (0.0-0.012); Nucleated Red Blood Cells Perc 0.0 % (0.0-0.2); Platelet Count Result 109 k/mm3 (150-375); Red Blood Count 3.51 M/mm3 (4.6-6.20); White Blood Count 5.6 K/mm3 (4.5-10.0)
[2025-01-30 04:49] LABS: Anion Gap 8 mmol/L (4-12); Blood Urea Nitrogen 10 mg/dL (9-20); Calcium 9.4 mg/dL (8.4-10.2); Carbon Dioxide 21 mmol/L (22-30); Chloride 111 mmol/L (98-107); Estimated CRCL calculation 57 ml/min; Estimated Glomerular Filt Rate > 60; Glucose 98 mg/dL (65-110); Potassium 3.4 mmol/L (3.4-5.0); Sodium 140 mmol/L (137-145)
[2025-01-30] MEDS: GABAPENTIN 400 MG CAPSULE 800 MG PO ×2 (05:52→12:23)
[2025-01-30] MEDS: ACETAMINOPHEN 500 MG TABLET 1000 MG PO (07:04)
--- NOTE | 2025-01-30 07:08 | P.PN_ITS ---
Progress Note: A&P Assessment and Plan (1) Breakthrough seizure: Code(s): G40.919 - Epilepsy, unspecified, intractable, without status epilepticus Status: Acute Assessment and Plan: Patient with frequent admissions for breakthrough seizures, last admitted on 12/09-12/11 Reportedly had 1 seizure at home and [address] David Kumar for neurology at [place], unable to say last office visit though denies any recent medication changes Denies missing any antiseizure medications as well as new trauma - UDS: marijuana positive, otherwise unremarkable - head CT: no acute infarct or hemorrhage - MRI brain w/o ordered given recurrent seizures and hx of HCC patient refusing MRI as he is unable to listen to music during imaging, premedication for anxiety related to claustrophobia was offered, again refused - continue home dose Keppra 1500 mg BID - seizure precautions - requested neurology records from [place] - neurology consult, appreciate recommendations (2) Nausea & vomiting: Qualifiers: Vomiting Intractability: non-intractable Vomiting type: unspecified Qualified Code(s): R11.2 - Nausea with vomiting, unspecified Code(s): R11.2 - Nausea with vomiting, unspecified Status: Acute Assessment and Plan: Several past ED visits or admissions with complaints of nausea/vomiting as reported by patient and his . -Zofran p.r.n. -continue pantoprazole daily Resolved. Denies any nausea/vomiting and abdominal pain. (3) Cirrhosis of liver: Qualifiers: Ascites presence: without ascites Hepatic cirrhosis type: unspecified hepatic cirrhosis Qualified Code(s): K74.60 - Unspecified cirrhosis of liver Code(s): K74.60 - Unspecified cirrhosis of liver Status: Chronic Assessment and Plan: History of HBV. Patient not in acute liver failure. Followed by hepatology at [place]. -continue to follow-up with supervisor insulation Dr. 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 Patient lying comfortably in bed. He has no complaints denying chest pain, shortness a breath, palpitations, nausea/vomiting, and abdominal pain. Patient is unable to answer further questions about the seizure but denies missing any antiseizure medication or recent trauma. Review of Systems Review of Systems: All systems reviewed & are unremarkable except as noted in HPI and below Exam Narrative: AF HR 75 RR 18 Spo2 97 BP 144/75 General: male in no acute respiratory distress who is nontoxic appearing, lying semi recumbent in bed. HEENT: Normocephalic. Atraumatic. Extraocular movement intact. Sclera clear and anicteric. No facial asymmetry. Chest: Lungs are clear to auscultation bilaterally. No wheezes or crackles. CV: Heart was regular rate and rhythm. Abd: Abdomen was soft. Nontender. Nondistended. Positive bowel sounds. Ext: No clubbing, cyanosis, or edema. 2+ DP pulses bilaterally. Neuro: Patient is alert and oriented x4. Strength is 5/5 in both upper and lower extremities. Cranial nerves 2-12 are intact. Speech is clear. Objective Data Vital Signs Vital Signs: Vital Signs - 24 hr 01/29/25 14:28 01/29/25 14:31 01/29/25 17:15 Temperature 98.1 F Pulse Rate 83 103 H Respiratory Rate 30 H 31 H Blood Pressure 146/79 H 173/85 H Pulse Oximetry 100 94 Oxygen Delivery Room Air Room Air 01/29/25 17:26 01/29/25 17:30 01/29/25 18:00 Temperature Pulse Rate 92 96 Respiratory Rate 25 H 16 Blood Pressure 155/85 H 154/43 H Pulse Oximetry 98 99 Oxygen Delivery Room Air 01/29/25 18:50 01/29/25 19:45 01/29/25 20:51 Temperature Pulse Rate 89 76 82 Respiratory Rate 18 18 16 Blood Pressure 141/81 H 134/74 Pulse Oximetry 98 100 99 Oxygen Delivery Room Air 01/29/25 20:57 01/30/25 04:24 Temperature 98.3 F 97.8 F Pulse Rate 82 75 Respiratory Rate 16 18 Blood Pressure 144/83 H 144/75 H Pulse Oximetry 99 97 Oxygen Delivery Intake/Output Intake/Output: Intake & Output 11/29/25 11/30/25 12/01/25 12/02/25 23:59 23:59 23:59 23:59 Intake Total 250 0 Balance 250 0 Meds/Results Medications: Active Medications Generic Name Dose Route Start Last Admin Trade Name Freq PRN Reason Stop Dose Admin Acetaminophen 1,000 mg 01/29/25 22:57 01/30/25 07:04 Acetaminophen 500 Mg Tablet PO 1,000 mg Q8H PRN Administration Pain 1-3 Hydrocodone Bitart/Acetaminophen 1 tab 01/29/25 22:57 01/30/25 01:57 Hydrocodone/Acetaminophen (*Crx) 5-325 Mg Tablet PO 1 tab Q8H PRN Administration Pain 4-6 Albuterol/Ipratropium 3 ml 01/29/25 22:59 Ipratropium 0.5 Mg/Albuterol Sulfate 2.5 Mg (Base) Ampul.Neb 3 Ml INHALATION Q6HRT PRN Shortness Of Breath Or Wheezing Ferrous Sulfate 325 mg 01/30/25 09:00 Ferrous Sulfate 325 Mg Tablet PO DAILY JOEL Fluticasone/Umeclidinium/Vilanterol 1 puff 01/30/25 08:00 Fluticasone/Umeclidin/Vilanter 100-62.5-25 Mcg Ellipta INHALATION DAILYRT JOEL Gabapentin 800 mg 01/30/25 00:00 01/30/25 05:52 Gabapentin 400 Mg Capsule PO 800 mg Q6HR JOEL Administration Levetiracetam 1,500 mg 01/30/25 09:00 01/30/25 05:49 Levetiracetam 500 Mg Tablet PO 1,500 mg Q12HR JOEL Administration Miscellaneous Information 1 each 01/30/25 00:01 Tenofovir Disoproxil Fumarate 300 Mg Tablet Is Nonform, Can Patient Bring From Home? XX 03/01/25 00:00 CLARIFY JOEL Non-Formulary Medication 300 mg 01/30/25 09:00 Tenofovir Disoproxil Fumarate PO 03/01/25 08:59 DAILY JOEL Nortriptyline HCl 10 mg 01/29/25 23:10 01/29/25 23:43 Nortriptyline Hcl 10 Mg Capsule PO 10 mg QHS JOEL Administration Ondansetron HCl 4 mg 01/30/25 00:09 Ondansetron Inj 4 Mg/2 Ml Vial IV PUSH Q6H PRN Nausea And Vomiting Pantoprazole Sodium 40 mg 01/30/25 09:00 Pantoprazole 40 Mg Tablet PO DAILY [facility] Tamsulosin HCl 0.4 mg 01/30/25 09:00 Tamsulosin Hcl 0.4 Mg Capsule PO DAILY [facility] Radiology Results: ITS Impressions Head CT 01/29/25 16:20 Impression: 1. Motion artifact limits evaluation. No acute infarct or hemorrhage Labs Labs: Laboratory Results - last 24 hr 01/29/25 01/29/25 01/30/25 14:33 17:07 04:08 WBC 7.4 5.6 RBC 3.76 L 3.51 L Hgb 11.6 L 10.8 L Hct 34.5 L 32.2 L MCV 91.8 91.7 MCH 30.9 30.8 MCHC 33.6 33.5 RDW 16.2 H 16.3 H Plt Count 181 D 109 L MPV 11.5 H 10.7 H Immature Gran % (Auto) Not Reportable 0.5 Neut % (Auto) Not Reportable 83.5 H Lymph % (Auto) Not Reportable 9.2 L Luna % (Auto) Not Reportable 6.6 Eos % (Auto) Not Reportable 0.0 Baso % (Auto) Not Reportable 0.2 Lymph # (Auto) Not Reportable 0.51 L Luna # (Auto) Not Reportable 0.4 Eos # (Auto) Not Reportable 0.0 Baso # (Auto) Not Reportable 0.0 Abs Immat Gran (auto) Not Reportable 0.03 Absolute Neuts (auto) Not Reportable 4.7 Absolute Nucleated RBC Not Reportable 0.000 Total Counted 100 Neutrophils % (Manual) 92 H Band Neutrophils % 0 Lymphocytes % (Manual) 4.0 L Monocytes % (Manual) 4 Nucleated RBC % Not Reportable 0.0 Abs Neuts (Manual) 6.80 H Abs Lymphs (Manual) 0.29 L Abs Monocytes (Manual) 0.29 Platelet Estimate Adequate Anisocytosis 2+ Schistocytes None seen Sodium 143 140 Potassium 3.4 3.4 Chloride 111 H 111 H Carbon Dioxide 20 L 21 L Anion Gap 12 8 BUN 10 10 Creatinine 0.99 0.84 Estim Creat Clear Calc Not Reportable 57 Estimated GFR > 60 > 60 Glucose 136 H 98 POC Capillary Glucose 144 H Calcium 10.0 9.4 Total Bilirubin 1.1 AST 54 ALT 70 H Alkaline Phosphatase 512 H Total Protein 8.4 H Albumin 4.1 Urine Color Yellow Urine Appearance Cloudy H Urine pH 7.5 Ur Specific [place] 1.016 Urine Protein 1+ H Urine Glucose (UA) Negative Urine Ketones Negative Ur Blood (Man) Negative Urine Nitrate Negative Urine Bilirubin Negative Urine Urobilinogen 1.0 Leukocyte Esterase Rfl Negative Urine RBC 0-2 Urine WBC 0-5 Ur Squamous Epith Cells None seen Urine Bacteria None seen Urine Casts 0-2 Urine Opiates Screen Negative Urine Methadone Screen Negative Ur Barbiturates Screen Negative Ur Phencyclidine Scrn Negative Ur Amphetamine Screen Negative U Benzodiazepines Scrn Negative Urine Cocaine Screen Negative U Cannabinoids Screen Positive A Ethyl Alcohol < 10 Quality VTE Prophylaxis VTE prophylaxis: mechanical ordered
[2025-01-30] MEDS: FERROUS SULFATE 325 MG TABLET PO (08:57)
[2025-01-30] MEDS: PANTOPRAZOLE 40 MG TABLET PO (08:57)
[2025-01-30] MEDS: TAMSULOSIN HCL 0.4 MG CAPSULE PO (08:57)
--- NOTE | 2025-01-30 09:52 | WPDNEURCNPN ---
Assessment and Plan Assessment and plan (1) Status epilepticus: Code(s): G40.901 - Epilepsy, unspecified, not intractable, with status epilepticus Status: Acute (2) History of cirrhosis: Code(s): Z87.19 - Personal history of other diseases of the digestive system Status: Acute (3) Malnourished: Qualifiers: Malnutrition type: unspecified type Qualified Code(s): E46 - Unspecified protein-calorie malnutrition Code(s): E46 - Unspecified protein-calorie malnutrition Status: Chronic Plan 1. Established epileptic with history of recurrent seizures at present taking Keppra and has been followed at the [facility]. Needs to continued on his anticonvulsant and follow-up with the epileptologist for the ongoing care. Consult date: 01/30/25 HPI: Ronan Baez is a 59 year old maleAdmitted to the hospital with history of seizure in addition to the ongoing history of seizure disorder for which he has been taking the medication as prescribed, the time of initial visit to the ER he was complaining of nausea. His home medications included 1.gabapentin 800mg q.8 2. Tamsulosin 0.4mg daily 3. Levetiracetam 1500mg b.i.d. 4. Nortriptyline 10mg at night 5. Topiramate 50mg q.12 hours 6. P.r.n. medication of hydrocodone with Tylenol, 7. Ferrous sulfate 325mg daily. He is reportedly allergic to Cipro, fentanyl and metronidazole. His past history is consistent with 1. Alcohol abuse with most recent use October 30, 2019 2. Hepatitis-B by history with hepatocellular carcinoma and cirrhosis of the liver 3. COPD 4. Seizure disorder. He does have ongoing history of years smoked 39 the smoking cigarettes per day 20 and currently everyday smoker. On initial exam in the emergency room his vital signs were normal, his general physical examination was normal, neurologically he was somewhat slow to speak and appeared in postictal state, vital signs were normal, routine lab revealed hemoglobin 10.8 and platelet count 109, protime was 16.3, BMP was normal, toxicology screen positive for the cannabinoids, and CT scan of the head with multiple movement artifacts due but no evidence of gross bleed. Patient has been continued on Keppra 1500mg q.12 hours in addition to other medications. Review of Systems Review of Systems: All systems reviewed & are unremarkable except as noted in HPI and below PMFSH Past Medical History Medical History Alcohol abuse Most recent use 10/29/2020 Chronic pain syndrome Hx of peptic ulcer as a child GERD (gastroesophageal reflux disease) History of hepatitis B Hepatocellular carcinoma COPD (chronic obstructive pulmonary disease) Cirrhosis Hepatocellular carcinoma radiation treatment Seizure Hepatic encephalopathy Surgical History Surgical History History of tibial fracture requiring surgical repair. History of cholecystectomy Family History Family History Father Hypertension Cerebrovascular accident Myocardial infarct Sibling Hypertension Sibling Hypertension Father Hypertension Cerebrovascular accident Family history of coronary artery disease Sibling Hypertension Social History Social History Social History: Smokes 1/2 ppd since 17yo. He is trying to quit. Lives at home with his and children. He is a full code. The patient had 7 children. He is on disability. The patient continues to use marijuana gummies. He no longer uses cocaine or other illicit drugs. 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 Alcohol intake: former Drinks per week: 0 Alcohol use details: Alcohol use noted 10/29/2020 with etoh level of 24. Substance use: current Substance use type: marijuana Other substance usage details: hx of cocaine, meth 15 years ago Last use: 15 years ago Lack of Transportation: YES Lack of Food: Never True Current Housing: I Have Housing Concerned About Future Housing: No Difficulty Paying Gas/Electric Bills: YES Difficulty Paying for Meds: YES Currently Unemployed: No Education: High School Diploma/GED Difficulty w/ Childcare or Family Care: No Living arrangements: with family Occupation/Education: other Gender identity (if verbalized by the patient): Male Sexual Orientation (if Verbalized by the Patient): Straight or Heterosexual Spiritual care concerns: No Agree to blood products: Yes Meds Home Medications and Allergies Home Medications ?Medication ?Instructions ?Recorded ?Confirmed ?Type gabapentin 800 mg tablet 800 mg PO QID 02/16/20 01/29/25 History tenofovir disoproxil fumarate 300 300 mg PO DAILY 02/16/20 01/29/25 History mg tablet tamsulosin 0.4 mg capsule 0.4 mg PO DAILY 01/11/21 01/29/25 History hydrocodone 5 mg-acetaminophen 325 1 tablet PO TID PRN Pain, Moderate 08/13/22 01/29/25 History mg tablet albuterol sulfate 90 mcg/actuation 2 puff inhalation Q4-6H PRN 02/22/24 01/29/25 Rx aerosol inhaler shortness of breath or wheezing 30 days #8.5 grams ondansetron 4 mg disintegrating 4 mg PO Q6H PRN nausea and 02/22/24 01/29/25 Rx tablet vomiting 3 days #12 tabs acetaminophen 500 mg tablet 1,000 mg (2 x 500 mg) PO TID PRN 05/07/24 01/29/25 Rx (Tylenol Extra Strength) pain #30 tabs budesonide 160 mcg-glycopyr 9 2 inh inhalation BID 12/09/24 01/29/25 History mcg-formot 4.8 mcg/actuation HFA inhaler (Breztri Aerosphere) ferrous sulfate 325 mg (65 mg 325 mg PO DAILY 12/09/24 01/29/25 History iron) tablet (Feosol) nortriptyline 10 mg capsule 10 mg PO QHS 12/09/24 01/29/25 History pantoprazole 40 mg tablet,delayed 40 mg PO DAILY 12/09/24 01/29/25 History release topiramate 50 mg tablet 50 mg PO Q12H PRN headache 12/09/24 01/29/25 History fvowful-quvkdrdnyxdfv-djksalqr 250 1 tablet PO Q4-6H PRN headache 01/29/25 01/29/25 History mg-250 mg-65 mg tablet (Excedrin Extra Strength) lactulose 20 gram oral packet 20 g PO BID #15 ea 01/30/25 Rx levetiracetam 1,000 mg tablet 2,000 mg (2 x 1,000 mg) PO BID #30 01/30/25 01/29/25 Rx (Keppra) tabs Allergies Allergy/AdvReac Type Severity Reaction Status Date / Time hornet venom Allergy Unknown Unknown Verified 01/29/25 21:13 strawberry Allergy Unknown Unknown Verified 01/29/25 21:13 ciprofloxacin Allergy Unknown Verified 01/29/25 21:13 fentanyl Allergy Unknown Verified 01/29/25 21:13 metronidazole AdvReac Unknown Nausea And Verified 01/29/25 21:13 Vomiting Vital Signs Vital Signs - 24 hr 01/29/25 14:28 01/29/25 14:31 01/29/25 17:15 Temperature 36.7 C Pulse Rate 83 103 H Respiratory Rate 30 H 31 H Blood Pressure 146/79 H 173/85 H Pulse Oximetry 100 94 Oxygen Delivery Room Air Room Air 01/29/25 17:26 01/29/25 17:30 01/29/25 18:00 Temperature Pulse Rate 92 96 Respiratory Rate 25 H 16 Blood Pressure 155/85 H 154/43 H Pulse Oximetry 98 99 Oxygen Delivery Room Air 01/29/25 18:50 01/29/25 19:45 01/29/25 20:51 Temperature Pulse Rate 89 76 82 Respiratory Rate 18 18 16 Blood Pressure 141/81 H 134/74 Pulse Oximetry 98 100 99 Oxygen Delivery Room Air 01/29/25 20:57 01/30/25 04:24 Temperature 36.8 C 36.6 C Pulse Rate 82 75 Respiratory Rate 16 18 Blood Pressure 144/83 H 144/75 H Pulse Oximetry 99 97 Oxygen Delivery Exam Narrative: Revealed him to be awake alert cooperative in no obvious acute distress, head normocephalic with no cranial bruits, ear nose throat examination normal, neck supple with no cervical bruit no thyromegaly no lymphadenopathy, heart regular with no murmur, lungs clear to auscultation with no rhonchi or crepitations, abdomen is soft nontender with normal bowel sounds, neurologically he is awake alert was able to follow the verbal commands appropriately and his speech was not dysphasic not dysarthric not dysphonic, pupils were round regular, feels the vision was full in all 4 quadrants, extraocular movements are full with no spontaneous or gaze evoked nystagmus, face was symmetric tongue was in the oral cavity motor examination revealed him to have fairly normal strength in upper and lower extremities with sluggish reflexes and downgoing plantar responses. There was no evidence of gross cerebellar deficit. Results Labs 01/30/25 04:08 01/30/25 04:08 Labs: Short CBC 01/29/25 01/30/25 Range/Units 17:07 04:08 WBC 7.4 5.6 (4.5-10.0) K/mm3 Hgb 11.6 L 10.8 L (14.0-18.0) g/dL Hct 34.5 L 32.2 L (42.0-52.0) % Plt Count 181 D 109 L (150-375) k/mm3 BMP 01/29/25 01/30/25 17:07 04:08 Sodium 143 140 Potassium 3.4 3.4 Chloride 111 H 111 H Carbon Dioxide 20 L 21 L BUN 10 10 Creatinine 0.99 0.84 Glucose 136 H 98 Calcium 10.0 9.4 Liver Function 01/29/25 Range/Units 17:07 Total Bilirubin 1.1 (0.2-1.3) mg/dL AST 54 (17-59) U/L ALT 70 H (6-50) U/L Alkaline Phosphatase 512 H (38-126) U/L Albumin 4.1 (3.5-5.1) g/dL Urine 01/29/25 Range/Units 17:07 Urine Color Yellow (Yellow) Urine Appearance Cloudy H (Clear) Urine pH 7.5 (5.0-9.0) Ur Specific [place] 1.016 (1.001-1.035) Urine Protein 1+ H (Negative) mg/dL Urine Glucose (UA) Negative (Negative) mg/dL
[2025-01-30 12:01] VITALS: BMI 16.2
[2025-01-30 13:12] LABS: Ammonia 36 umol/L (9-30)
--- NOTE | 2025-01-30 13:20 | P.CDI_ITS ---
CDI Query Clarification Request BMI: 16.3 Nutritional Diagnostic Statement: Please refer to the comprehensive nutrition assessment for further information. If you agree with diagnosis of Severe Protein Calorie Malnutrition as related to inadequate protein-energy intake with increased protein-energy needs in setting of chronic disease as evidenced by minimal oral intake for > 1-2 months; severe subcutaneous fat loss (orbital fat pads) and severe muscle wasting (temporalis). Please specify severity if known: * Mild * Moderate * Severe * Other/Unknown <Brissa Mccann RN - Last Filed: 01/30/25 13:21> Clarified Diagnosis Clarified Diagnosis: severe <Akua Henderson PA-C - Last Filed: 01/30/25 15:34>
--- NOTE | 2025-01-30 14:56 | P.DS_ITS ---
DS: Admitting Diagnosis Discharge Date 01/30/2025 Admitting Diagnosis breakthrough seizure nausea/vomiting cirrhosis DS: Discharge Diagnosis Discharge Diagnosis (1) Breakthrough seizure: Code(s): G40.919 - Epilepsy, unspecified, intractable, without status epilepticus Status: Acute (2) Nausea & vomiting: Qualifiers: Vomiting Intractability: non-intractable Vomiting type: unspecified Qualified Code(s): R11.2 - Nausea with vomiting, unspecified Code(s): R11.2 - Nausea with vomiting, unspecified Status: Acute (3) Cirrhosis of liver: Qualifiers: Ascites presence: without ascites Hepatic cirrhosis type: unspecified hepatic cirrhosis Qualified Code(s): K74.60 - Unspecified cirrhosis of liver Code(s): K74.60 - Unspecified cirrhosis of liver Status: Chronic DS: Summary Hospital Course Reason for hospitalization: breakthrough seizure nausea/vomiting cirrhosis Hospital Course: 59-year-old male with a past medical history including hepatocellular carcinoma (s/p TACE, in remission), hepatitis B, cirrhosis, COPD, chronic pain syndrome, and a seizure disorder, who presented to the ED after his witnessed a seizure at home. He has a history of recurrent breakthrough seizures with multiple prior admissions, and is followed by neurology and hepatology at [facility]. On presentation, he was postictal and drowsy, with a witnessed seizure in the ED requiring two doses of IV midazolam for abortive therapy. He was loaded with levetiracetam and maintained on his home dose of 1500 mg BID. Initial labs were notable for baseline anemia, thrombocytopenia, mild transaminitis, and elevated alkaline phosphatase, consistent with his known cirrhosis. Patient had a mildly elevated ammonia level, given history of cirrhosis started on low dose lactulose for hepatic encephalopathy prevention. Urine toxicology was positive for cannabinoids, and head CT was negative for acute pathology but limited by motion artifact. An MRI was ordered given recurrent seizures and history of HCC however patient refused. He experienced intractable nausea and vomiting prior to admission, which resolved with supportive care and antiemetics. Neurology was consulted and prior to discharge discussed medication regimen with Dr. Hernandez who recommended increasing patient's Keppra dosage from 1500 mg q.12 hours to 2000 mg q.12 hours given the breakthrough seizure on the home dose with close follow up in the [facility] epileptic clinic. During hospitalization, he remained hemodynamically stable, with no further witnessed seizures, and his mental status returned to baseline. He was monitored on seizure precautions. Discharge planning included close outpatient follow-up with neurology and hepatology, continuation of his home medications, and reinforcement of seizure precautions. He was discharged home in stable condition, at his cognitive baseline, and with no acute complaints. Status at Discharge Functional status at discharge: independent ambulation Time Spent with Patient Time attestation: Total time spent providing and/or coordinating discharge services: Time spent: Greater than 30 minutes Exam Narrative: AF HR 75 RR 18 Spo2 97 BP 144/75 General: male in no acute respiratory distress who is nontoxic appearing, lying semi recumbent in bed. HEENT: Normocephalic. Atraumatic. Extraocular movement intact. Sclera clear and anicteric. No facial asymmetry. Chest: Lungs are clear to auscultation bilaterally. No wheezes or crackles. CV: Heart was regular rate and rhythm. Abd: Abdomen was soft. Nontender. Nondistended. Positive bowel sounds. Ext: No clubbing, cyanosis, or edema. DP pulses bilaterally. Neuro: Patient is alert and oriented x4. Strength is 5/5 in both upper and lower extremities. Cranial nerves 2-12 are intact. Speech is clear. DS: Data Data Completed and Pending Completed studies during hospitalization: head ct Labs on day of discharge: Labs from last 24 hours 01/30/25 01/30/25 01/29/25 12:50 04:08 17:07 WBC 5.6 7.4 RBC 3.51 L 3.76 L Hgb 10.8 L 11.6 L Hct 32.2 L 34.5 L MCV 91.7 91.8 MCH 30.8 30.9 MCHC 33.5 33.6 RDW 16.3 H 16.2 H Plt Count 109 L 181 D MPV 10.7 H 11.5 H Immature Gran % (Auto) 0.5 Not Reportable Neut % (Auto) 83.5 H Not Reportable Lymph % (Auto) 9.2 L Not Reportable [place] % (Auto) 6.6 Not Reportable Eos % (Auto) 0.0 Not Reportable Baso % (Auto) 0.2 Not Reportable Lymph # (Auto) 0.51 L Not Reportable [place] # (Auto) 0.4 Not Reportable Eos # (Auto) 0.0 Not Reportable Baso # (Auto) 0.0 Not Reportable Abs Immat Gran (auto) 0.03 Not Reportable Absolute Neuts (auto) 4.7 Not Reportable Absolute Nucleated RBC 0.000 Not Reportable Total Counted 100 Neutrophils % (Manual) 92 H Band Neutrophils % 0 Lymphocytes % (Manual) 4.0 L Monocytes % (Manual) 4 Nucleated RBC % 0.0 Not Reportable Abs Neuts (Manual) 6.80 H Abs Lymphs (Manual) 0.29 L Abs Monocytes (Manual) 0.29 Platelet Estimate Adequate Anisocytosis 2+ Schistocytes None seen Sodium 140 143 Potassium 3.4 3.4 Chloride 111 H 111 H Carbon Dioxide 21 L 20 L Anion Gap 8 12 BUN 10 10 Creatinine 0.84 0.99 Estim Creat Clear Calc 57 Not Reportable Estimated GFR > 60 > 60 Glucose 98 136 H Calcium 9.4 10.0 Total Bilirubin 1.1 AST 54 ALT 70 H Alkaline Phosphatase 512 H Ammonia 36 H Total Protein 8.4 H Albumin 4.1 Urine Color Yellow Urine Appearance Cloudy H Urine pH 7.5 Ur Specific [place] 1.016 Urine Protein 1+ H Urine Glucose (UA) Negative Urine Ketones Negative Ur Blood (Man) Negative Urine Nitrate Negative Urine Bilirubin Negative Urine Urobilinogen 1.0 Leukocyte Esterase Rfl Negative Urine RBC 0-2 Urine WBC 0-5 Ur Squamous Epith Cells None seen Urine Bacteria None seen Urine Casts 0-2 Urine Opiates Screen Negative Urine Methadone Screen Negative Ur Barbiturates Screen Negative Ur Phencyclidine Scrn Negative Ur Amphetamine Screen Negative U Benzodiazepines Scrn Negative Urine Cocaine Screen Negative U Cannabinoids Screen Positive A Ethyl Alcohol < 10 Discharge Plan Discharge Attending physician on discharge: Luis Miguel Keller Oca Consulting providers: Ross Hightower; Akua Henderson Discharging Clinician: Akua Henderson Anticipated Discharge Date/Time: 01/30/25 14:42 Patient Disposition: Home Activity: no driving and as tolerated Diet: as tolerated Discharge Instructions: Discharge disposition: 1.?Seizure Management Medication: * Keppra (Levetiracetam):?Dose increased to 2000 mg by mouth every 12 hours (twice daily), as prescribed. * Take your medication at the same times each day. Precautions: * Avoid activities that could be dangerous if you have a seizure (e.g., driving, swimming alone, operating heavy machinery) until cleared by your provider. * Do not drive or operate heavy machinery for at least 6 months or cleared by neurology * Get adequate sleep and avoid alcohol or recreational drugs, as these can lower your seizure threshold. * Inform your provider if you experience new or worsening side effects such as mood changes, severe drowsiness, or rash. When to Seek Immediate Medical Attention: * Seizure lasting longer than 5 minutes * Multiple seizures without regaining consciousness between them * Difficulty breathing, severe confusion, or injury during a seizure Follow up in the [facility] epilepsy clinic, call for appointment 2.?Cirrhosis and Elevated Ammonia Medication: * Started on Lactulose 20 g twice a day * The goal is to have 2?3 soft bowel movements per day. Adjust the dose as directed to achieve this. * If you have diarrhea or more than 3 loose stools per day, contact your provider for dose adjustment. Precautions: * Take lactulose with food or water to improve taste and reduce stomach upset. * Stay hydrated, especially if you are having frequent bowel movements. * Monitor for signs of dehydration (dizziness, dry mouth, decreased urination). Signs of Hepatic Encephalopathy to Watch For: * Increasing confusion, sleepiness, or difficulty thinking clearly * Personality or behavior changes * Difficulty with coordination or handwriting * If any of these occur, contact your provider or seek emergency care. Follow up with primary hepatology at [facility], call for appointment Monitor blood pressures Take caution while standing, rising, or moving Change positions slowly taking a break between each position change If you standing feel dizzy sit back down and take a break Encouraged to continue with yearly vaccinations Return to the emergency department if he developed sudden shortness of breath, chest pain, nausea, vomiting, upset stomach or intractable diarrhea Return to the emergency department if you develop fever greater than 100.5 Follow-up with the primary care physician within 1-2 weeks Thank you for choosing [facility] for your healthcare needs Patient Instructions: Lactulose (By mouth), Levetiracetam (By mouth), Hepatic Encephalopathy (DC), Recurrent Seizures in Adults (DC) Patient Language: [place] Stand Alone Forms: General Discharge Information Follow-up/Referrals: Jn,Roxy Quevedo, [employer] [Primary Care Provider, Unknown] - 1 Week Discharge Medications: New lactulose 20 gram packet 20 g PO BID Qty: 15 0RF Continued ondansetron 4 mg tablet,disintegrating 4 mg PO Q6H PRN (Reason: nausea and vomiting) 3 Days Qty: 12 0RF albuterol sulfate 90 mcg/actuation HFA aerosol inhaler 2 puff inhalation Q4-6H PRN (Reason: shortness of breath or wheezing) 30 Days Qty: 8.5 0RF hydrocodone-acetaminophen 5-325 mg tablet 1 tablet PO TID PRN (Reason: Pain, Moderate) tamsulosin 0.4 mg capsule 0.4 mg PO DAILY acetaminophen [Tylenol Extra Strength] 500 mg tablet 1,000 mg PO TID PRN (Reason: pain) Qty: 30 0RF nortriptyline 10 mg capsule 10 mg PO QHS pantoprazole 40 mg tablet,delayed release (DR/EC) 40 mg PO DAILY topiramate 50 mg tablet 50 mg PO Q12H PRN (Reason: headache) Breztri Aerosphere 160-9-4.8 mcg/actuation HFA aerosol inhaler 2 inh inhalation BID ferrous sulfate [Feosol] 325 mg (65 mg iron) tablet 325 mg PO DAILY gabapentin 800 mg Tablet 800 mg PO QID tenofovir disoproxil fumarate 300 mg Tablet 300 mg PO DAILY yyltnip-qmigqlkuvcqpm-tthzqvfv [Excedrin Extra Strength] 250-250-65 mg tablet 1 tablet PO Q4-6H PRN (Reason: headache) Changed levetiracetam [Keppra] 1,000 mg tablet 2,000 mg PO BID Qty: 30 0RF Date of admission: 01/30/25 08:04 Primary Care Provider: Jn,Roxy Quevedo Admitting Provider: Luis Miguel Keller Oca Attending physician on admission: Luis Miguel Keller Oca Condition: Stable Hospitalist MIPS Heart Failure (Exclusion) Patient has history of Heart Transplant or Left Ventricular Assistive Device?: No IF YES, STOP HERE Heart Failure (Qualifier) Patient has current or prior documentation of LVEF less than or equal to 40%, or mod/servere depressed LVSF?: No IF NO, STOP HERE
== END 2025-01-30 15:23 | disposition home or self-care (01) ==
LOC: ANHED 19:39 → ANH2MED 19:56
PROVIDERS: Nurse Practitioner Adult Health; Student in an Organized Health Care Education/Training Program; Admitting Provider Student in an Organized Health Care Education/Training Program; Emergency Provider Emergency Medicine; Visit Provider Student in an Organized Health Care Education/Training Program
DX: G40.919 Epilepsy, unspecified, intractable, without status epilepticus (principal); R11.2 Nausea with vomiting, unspecified; N40.0 Benign prostatic hyperplasia without lower urinary tract symptoms; E46 Unspecified protein-calorie malnutrition; Z68.1 Body mass index [BMI] 19.9 or less, adult; K74.60 Unspecified cirrhosis of liver; G89.4 Chronic pain syndrome; K21.9 Gastro-esophageal reflux disease without esophagitis; J44.9 Chronic obstructive pulmonary disease, unspecified; K76.82 Hepatic encephalopathy; C22.0 Liver cell carcinoma; F17.210 Nicotine dependence, cigarettes, uncomplicated; F12.90 Cannabis use, unspecified, uncomplicated; F10.11 Alcohol abuse, in remission; Z79.891 Long term (current) use of opiate analgesic; Z87.19 Personal history of other diseases of the digestive system; Z86.19 Personal history of other infectious and parasitic diseases; Z86.59 Personal history of other mental and behavioral disorders; Z92.3 Personal history of irradiation; Z90.49 Acquired absence of other specified parts of digestive tract; Z82.3 Family history of stroke; Z82.49 Family history of ischemic heart disease and other diseases of the circulatory system
CPT/HCPCS: 36415; 70450; 80048; 80053; 80307; 81001; 82077; 82140; 82948; 85025; 93005; 96365; 96367; 96375; 99285; A9270; G0378; J1790; J1953; J2250

== ENCOUNTER 2025-02-17 11:28 | Observation (INO) | payer MEDICARE, MEDICAID, SELFPAY ==
--- NOTE | ~2025-02-17 | XR_ITS ---
Examination: XR chest 1V portable Clinical History: AMS Comparison: 12/09/2024 Technique: Portable AP Findings: Heart size normal. Hyperinflation. Left apical scarring and opacity. No acute bony abnormality. IMPRESSION: 1. Recommend CT chest to better evaluate left upper lobe nodule. Reviewed, dictated and finalized at location R. M TANK OPERATOR
--- NOTE | ~2025-02-17 | CT_ITS ---
EXAMINATION: CT brain wo con DATE: 02/17/2025 15:47 INDICATION: Altered mental status. TECHNIQUE: Computed tomography (CT) of the head was performed without intravenous contrast. The mA was adjusted according to patient size. Iterative reconstruction technique was employed. The dose-length product was 151.33 mGy-cm. COMPARISON: CT brain dated 01/29/2025. FINDINGS: No acute intracranial bleed or extra-axial collections. No ventriculomegaly or midline shift. No acute bony lesions of the cranium. Mild inflammatory changes of left maxillary sinus. IMPRESSION: 1. No acute findings in the limited noncontrast CT head. Mild the left maxillary sinusitis. Reviewed, dictated and finalized at location T. ANICAL EXPERT IMPRESSION: 1. No acute findings in the limited noncontrast CT head. Mild the left maxillar y sinusitis.
--- NOTE | ~2025-02-17 | CT_ITS ---
EXAMINATION: CT, chest abdomen and pelvis with contrast: DATE: 02/17/2025. INDICATION: Left upper lobe lung nodule on chest x-ray. TECHNIQUE: CT through chest, abdomen and pelvis with contrast 100 cc and reviewed in multiple projections. COMPARISON: Chest x-ray dated 02/17/2025. FINDINGS: No focal abnormalities of supraclavicular fossa and axilla. Severe reardon acinar emphysematous changes of lungs. Bilateral irregular noncalcified apical densities are noted with right apical density measuring 1.6 cm in diameter and left apical density measuring 1.9 cm in diameter. No hilar or mediastinal adenopathy or effusion. Paraesophageal venous varices are noted in the lower mediastinum. Below the diaphragm, significantly Limited evaluation in the upper abdomen due to extraneous artifacts. No definite focal lesions of liver and spleen. No obstructive changes of kidneys. Significant quantity of free fluid noted in the peritoneal cavity. No evidence of free air. Irregular nodular outline of the left lobe of the liver suggests chronic liver disease. Dilated portal vein suggests portal venous hypertension. Fecal impaction of the rectosigmoid colon. IMPRESSION: 1. Severe emphysematous changes of lungs. Bilateral upper lobe noncalcified nodules as mentioned above. Possible pulmonary neoplasm. Further evaluation by PET CT scan is recommended. 2. Mildly contracted left lobe of the liver with nodular outline. Dilated portal vein and large amount of ascites are noted suggestive of portal venous hypertension. Presence of paraesophageal venous varices is also noted in the lower mediastinum. Reviewed, dictated and finalized at location T. L RECOVERY SPECIALIST IMPRESSION: 1. Severe emphysematous changes of lungs. Bilateral upper lobe noncalcified nod ules as mentioned above. Possible pulmonary neoplasm. Further evaluation by PET CT scan is recommended. 2. Mildly contracted left lobe of the liver with nodular outline. Dilated luiza l vein and large amount of ascites are noted suggestive of portal venous hypert ension. Presence of paraesophageal venous varices is also noted in the lower me diastinum.
--- NOTE | ~2025-02-17 | US_ITS ---
EXAMINATION: US paracentesis abd w/image DATE: 02/19/2025 11:29 INDICATION: Ascites. TECHNIQUE: The procedure and its risks and benefits were discussed with the patient. Potential risks discussed included bleeding and infection. The skin was prepped and draped in sterile fashion. 1% lidocaine was used for local anesthesia. Under ultrasound guidance, a 5 Fr catheter with trochar was advanced into the ascites in the right upper quadrant. Fluid was aspirated into vacuum bottles. The catheter was removed, and a dressing was applied. There were no immediate complications. FINDINGS: Ultrasound images demonstrate a small to moderate amount of ascites and the catheter within the fluid. Incidentally noted is liver surface nodularity and splenomegaly suggestive of cirrhosis with secondary portal venous hypertension. IMPRESSION: 1. Successful ultrasound-guided paracentesis yielding 1300 mL of clear straw- colored fluid. Reviewed, dictated and finalized at location A. CAB STARTER IMPRESSION: 1. Successful ultrasound-guided paracentesis yielding 1300 mL of clear straw-c olored fluid.
[2025-02-17 11:27] VITALS: BP 133/61; PULSE 72; RESP 21; O2SAT 100
--- NOTE | 2025-02-17 11:32 | ECG_ITS ---
Test Date: 2025-02-17 11:43:56 Measurements Intervals [place] Rate: 77 P: 77 WV: 148 QRS: 45 QRSD: 93 T: 86 QT: 393 QTc: 445 Interpretive Statements SINUS RHYTHM POSSIBLE LEFT ATRIAL ENLARGEMENT INCOMPLETE RIGHT BUNDLE BRANCH BLOCK NONSPECIFIC ST & T-WAVE ABNORMALITY- DIFFUSE LEADS BASELINE ARTIFACT- II, III, AVR, AVL, AVF, V1-V6 BORDERLINE ECG Compared to ECG 01/29/2025 14:20:59 NO SIGNIFICANT CHANGE Electronically Signed On 02-17-2025 17:26:05 POULTRY TRIMMER by Davidson Juarez D.O.
[2025-02-17 11:34] VITALS: PULSE 73
[2025-02-17 11:51] LABS: Hematocrit 34.4 % (42.0-52.0); Hemoglobin 11.6 g/dL (14.0-18.0); Immature Granulocyte Percent A 0.1 % (0-0.5); Immature Platelet Fraction Pct 9.5 % (0.9-11.2); Lymphocytes Absolute Auto 0.62 K/mm3 (0.9-3.2); Mean Corpuscular HGB Conc 33.7 g/dl (32-36); Mean Corpuscular Hemoglobin 30.9 pg (26-34); Mean Corpuscular Volume 91.5 fl (80-100); Nucleated Red Blood Cells Absolute Auto 0.000 K/mm3 (0.0-0.012); Nucleated Red Blood Cells Perc 0.0 % (0.0-0.2); Red Blood Count 3.76 M/mm3 (4.6-6.20); White Blood Count 8.0 K/mm3 (4.5-10.0)
[2025-02-17 12:00] LABS: INR 1.3; Prothrombin Time 16.0 Seconds (11.1-14.7)
[2025-02-17 12:01] LABS: Partial Thromboplastin Time 26.0 Seconds (22.3-36.8)
[2025-02-17 12:09] LABS: Alanine Aminotransferase 37 U/L (6-50); Albumin Level 4.0 g/dL (3.5-5.1); Alkaline Phosphatase 252 U/L (38-126); Anion Gap 9 mmol/L (4-12); Aspartate Amino Transferase 47 U/L (17-59); Bilirubin,Total 1.0 mg/dL (0.2-1.3); Blood Urea Nitrogen 14 mg/dL (9-20); Calcium 9.6 mg/dL (8.4-10.2); Carbon Dioxide 20 mmol/L (22-30); Chloride 111 mmol/L (98-107); Estimated CRCL calculation 77 ml/min; Estimated Glomerular Filt Rate > 60; Glucose 166 mg/dL (65-110); Potassium 3.9 mmol/L (3.4-5.0); Sodium 140 mmol/L (137-145); Total Protein 8.2 g/dL (6.3-8.2)
[2025-02-17 12:11] LABS: Platelet Count Result 92 k/mm3 (150-375)
--- NOTE | 2025-02-17 12:37 | ED.SEIZURE ---
HPI - Seizure General Chief Complaint: Seizure Stated Complaint: ?seizure Time Seen by Provider: 02/17/25 11:53 History of Present Illness HPI Narrative: Patient is a 59-year-old male with history of epilepsy who presents ER after what was presumed to be a seizure. Found unconscious in the garage. He has some abrasions to the arms. Patient is not oriented and does not follow commands but does localize to pain. He intentionally rolls himself around in bed and also puts his fingers in his throat to vomit. Seizure History: Yes (narcotic) Related Data Home Medications ?Medication ?Instructions ?Recorded ?Confirmed ?Last Taken ?Type gabapentin 800 mg tablet 800 mg PO QID 02/16/20 01/29/25 01/28/25 History tenofovir disoproxil fumarate 300 300 mg PO DAILY 02/16/20 01/29/25 01/28/25 History mg tablet tamsulosin 0.4 mg capsule 0.4 mg PO DAILY 01/11/21 01/29/25 01/28/25 History hydrocodone 5 mg-acetaminophen 325 1 tablet PO TID PRN Pain, Moderate 08/13/22 01/29/25 12/07/23 History mg tablet budesonide 160 mcg-glycopyr 9 2 inh inhalation BID 12/09/24 01/29/25 01/28/25 History mcg-formot 4.8 mcg/actuation HFA inhaler (Breztri Aerosphere) ferrous sulfate 325 mg (65 mg 325 mg PO DAILY 12/09/24 01/29/25 Unknown History iron) tablet (Feosol) nortriptyline 10 mg capsule 10 mg PO QHS 12/09/24 01/29/25 01/28/25 History pantoprazole 40 mg tablet,delayed 40 mg PO DAILY 12/09/24 01/29/25 01/28/25 History release topiramate 50 mg tablet 50 mg PO Q12H PRN headache 12/09/24 01/29/25 Unknown History frbxwzh-yyhzvexwqgqux-rcctimxw 250 1 tablet PO Q4-6H PRN headache 01/29/25 01/29/25 Unknown History mg-250 mg-65 mg tablet (Excedrin Extra Strength) Allergies Allergy/AdvReac Type Severity Reaction Status Date / Time hornet venom Allergy Unknown Unknown Verified 02/17/25 11:36 strawberry Allergy Unknown Unknown Verified 02/17/25 11:36 ciprofloxacin Allergy Unknown Verified 02/17/25 11:36 fentanyl Allergy Unknown Verified 02/17/25 11:36 metronidazole AdvReac Unknown Nausea And Verified 02/17/25 11:36 Vomiting Review of Systems Review of Systems: ROS unobtainable: Yes unobtainable due to mental status [facility] Past Medical History Medical History Alcohol abuse Most recent use 10/29/2020 Chronic pain syndrome Hx of peptic ulcer as a child GERD (gastroesophageal reflux disease) History of hepatitis B Hepatocellular carcinoma COPD (chronic obstructive pulmonary disease) Cirrhosis Hepatocellular carcinoma radiation treatment Seizure Hepatic encephalopathy Surgical History Surgical History History of tibial fracture requiring surgical repair. History of cholecystectomy Family History Family History Father Hypertension Cerebrovascular accident Myocardial infarct Sibling Hypertension Sibling Hypertension Father Hypertension Cerebrovascular accident Family history of coronary artery disease Sibling Hypertension Social History Social History Social History: Smokes 1/2 ppd since 17yo. He is trying to quit. Lives at home with his and children. He is a full code. The patient had 7 children. He is on disability. The patient continues to use marijuana gummies. He no longer uses cocaine or other illicit drugs. 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 Alcohol intake: former Drinks per week: 0 Alcohol use details: Alcohol use noted 10/29/2020 with etoh level of 24. Substance use: current Substance use type: marijuana Other substance usage details: hx of cocaine, meth 15 years ago Last use: 15 years ago Lack of Transportation: YES Lack of Food: Never True Current Housing: I Have Housing Concerned About Future Housing: No Difficulty Paying Gas/Electric Bills: YES Difficulty Paying for Meds: YES Currently Unemployed: No Education: High School Diploma/GED Difficulty w/ Childcare or Family Care: No Living arrangements: with family Occupation/Education: other Gender identity (if verbalized by the patient): Male Sexual Orientation (if Verbalized by the Patient): Straight or Heterosexual Spiritual care concerns: No Agree to blood products: Yes Exam Narrative: GENERAL: Chronically ill-appearing and underweight, dry heaving HEAD: Normocephalic, atraumatic. ENT: Mucous membranes moist. NECK: Supple. CHEST: Clear to auscultation. No respiratory distress. HEART: Regular rate and rhythm. Normal peripheral pulses. ABDOMEN: Soft, nontender, nondistended. EXTREMITIES: Normal range of motion. No edema. SKIN: Warm, dry, scattered abrasions to the arms. NEURO: Patient is not awake but is alert and localizes to pain. He physician some self and positions of comfort. Course Course Emergency Course: Patient with prolonged postictal state. He did have 1 seizure in the ER. He has received Ativan 2 mg and Keppra 1 g. Discussed with neurology on-call. Okay to observe in hospital and continue home anti epileptics and seizure precautions. No EEG needs to be ordered. Accepted by hospitalist service. Vital Signs Vital signs: Vital Signs Pulse Rate 72 02/17/25 11:27 Respiratory Rate 21 H 02/17/25 11:27 Blood Pressure 133/61 02/17/25 11:27 Pulse Oximetry 100 02/17/25 11:27 Oxygen Delivery Room Air 02/17/25 11:27 Pulse Rate 88 02/17/25 17:21 Respiratory Rate 24 H 02/17/25 17:21 Blood Pressure 133/59 L 02/17/25 17:21 Pulse Oximetry 95 02/17/25 17:21 Oxygen Delivery Room Air 02/17/25 11:35 MDM Differential Diagnosis Differential Diagnosis: Seizure, drug abuse, intracranial hemorrhage, pneumonia, sepsis Medical Records I have reviewed the following patient records and this information was taken into consideration when formulating the assessment and plan.: previous hospitalizations Lab Data [facility] Lab Attestation statement: I personally reviewed the patient's lab results. 02/17/25 11:39 02/17/25 11:39 Labs: Lab Results 02/17/25 02/17/25 Range/Units 11:39 13:38 WBC 8.0 (4.5-10.0) K/mm3 RBC 3.76 L (4.6-6.20) M/mm3 Hgb 11.6 L (14.0-18.0) g/dL Hct 34.4 L (42.0-52.0) % MCV 91.5 (80-100) fl MCH 30.9 (26-34) pg MCHC 33.7 (32-36) g/dl RDW 16.2 H (11.5-14.5) % Plt Count 92 L (150-375) k/mm3 MPV 12.0 H (7.4-10.4) fl Immature Gran % (Auto) 0.1 (0-0.5) % Neut % (Auto) 88.4 H (45.5-73.1) % Lymph % (Auto) 7.8 L (18.3-44.2) % [place] % (Auto) 3.1 (2.6-8.5) % Eos % (Auto) 0.3 (0-4.4) % Baso % (Auto) 0.3 (0.2-1.2) % Lymph # (Auto) 0.62 L (0.9-3.2) K/mm3 [place] # (Auto) 0.3 (0.1-0.6) K/mm3 Eos # (Auto) 0.0 (0-0.3) K/mm3 Baso # (Auto) 0.0 (0.0-0.1) K/mm3 Abs Immat Gran (auto) 0.01 (0.00-0.031) K/mm3 Absolute Neuts (auto) 7.0 H (1.3-6.7) K/mm3 Absolute Nucleated RBC 0.000 (0.0-0.012) K/mm3 Nucleated RBC % 0.0 (0.0-0.2) % % Immature Plt Fraction 9.5 (0.9-11.2) % PT 16.0 H (11.1-14.7) Seconds INR 1.3 APTT 26.0 (22.3-36.8) Seconds Sodium 140 (137-145) mmol/L Potassium 3.9 (3.4-5.0) mmol/L Chloride 111 H (98-107) mmol/L Carbon Dioxide 20 L (22-30) mmol/L Anion Gap 9 (4-12) mmol/L BUN 14 (9-20) mg/dL Creatinine 0.72 (0.7-1.3) mg/dL Estim Creat Clear Calc 77 ml/min Estimated GFR > 60 (59 - ) Glucose 166 H (65-110) mg/dL Calcium 9.6 (8.4-10.2) mg/dL Total Bilirubin 1.0 (0.2-1.3) mg/dL AST 47 (17-59) U/L ALT 37 (6-50) U/L Alkaline Phosphatase 252 H (38-126) U/L Total Protein 8.2 (6.3-8.2) g/dL Albumin 4.0 (3.5-5.1) g/dL Urine Color Yellow (Yellow) Urine Appearance Clear (Clear) Urine pH 6.0 (5.0-9.0) Ur Specific [place] 1.025 (1.001-1.035) Urine Protein 1+ H (Negative) mg/dL Urine Glucose (UA) Negative (Negative) mg/dL Urine Ketones Negative (Negative) mg/dL Ur Blood (Man) Negative (Negative) Urine Nitrate Negative (Negative) Urine Bilirubin Negative (Negative) Urine Urobilinogen 1.0 (<2.0) mg/dL Add Ur Microanalysis Reviewed Leukocyte Esterase Rfl Negative (Negative) MARILIA/UL Urine RBC 0-2 (0-2) /hpf Urine WBC 0-5 (0-3) /hpf Ur Squamous Epith Cells None seen (Few) /hpf Ur Transition Epith Cell Rare (None Seen) /hpf Urine Bacteria None seen /hpf Urine Casts 3-5 Broad Casts Present Urine Opiates Screen Negative (Negative) Urine Methadone Screen Negative (Negative) Ur Barbiturates Screen Negative (Negative) Ur Phencyclidine Scrn Negative (Negative) Ur Amphetamine Screen Positive A (Negative) U Benzodiazepines Scrn Negative (Negative) Urine Cocaine Screen Negative (Negative) U Cannabinoids Screen Positive A (Negative) Ethyl Alcohol < 10 (<10) mg/dL Imaging Data Radiologist's impression: ITS Impressions Chest X-Ray 02/17/25 13:[address]: [address] chest to better evaluate left upper lobe nodule. Head CT 02/17/25 15:56 IMPRESSION: 1. No acute findings in the limited noncontrast CT head. Mild the left maxillary sinusitis. Chest/Abdomen/Pelvis CT 02/17/25 16:17 IMPRESSION: 1. Severe emphysematous changes of lungs. Bilateral upper lobe noncalcified nodules as mentioned above. Possible pulmonary neoplasm. Further evaluation by PET CT scan is recommended. 2. Mildly contracted left lobe of the liver with nodular outline. Dilated portal vein and large amount of ascites are noted suggestive of portal venous hypertension. Presence of paraesophageal venous varices is also noted in the lower mediastinum. Restraint Face to Face Eval ED Evaluation Findings Date Seen by EDP: 02/17/25 Time Seen by EDP: 12:47 Pt's immediate situation:: Altered, pulling at lines and wires. Pt's reaction to intervention:: Does not understand the any verbal communication this point. Pt's med/behavioral condition:: Placed in soft restraints Discharge Plan Discharge Clinical Impression: Seizure, Polysubstance abuse, Pulmonary nodule Patient Disposition: Still a Patient Condition: Stable Patient Language: Burmese Prescriptions: No Action ondansetron 4 mg tablet,disintegrating 4 mg PO Q6H PRN (Reason: nausea and vomiting) 3 Days Qty: 12 0RF albuterol sulfate 90 mcg/actuation HFA aerosol inhaler 2 puff inhalation Q4-6H PRN (Reason: shortness of breath or wheezing) 30 Days Qty: 8.5 0RF hydrocodone-acetaminophen 5-325 mg tablet 1 tablet PO TID PRN (Reason: Pain, Moderate) tamsulosin 0.4 mg capsule 0.4 mg PO DAILY acetaminophen [Tylenol Extra Strength] 500 mg tablet 1,000 mg PO TID PRN (Reason: pain) Qty: 30 0RF nortriptyline 10 mg capsule 10 mg PO QHS pantoprazole 40 mg tablet,delayed release (DR/EC) 40 mg PO DAILY topiramate 50 mg tablet 50 mg PO Q12H PRN (Reason: headache) Breztri Aerosphere 160-9-4.8 mcg/actuation HFA aerosol inhaler 2 inh inhalation BID ferrous sulfate [Feosol] 325 mg (65 mg iron) tablet 325 mg PO DAILY gabapentin 800 mg Tablet 800 mg PO QID tenofovir disoproxil fumarate 300 mg Tablet 300 mg PO DAILY apvosfm-ekrklhjxtdxzx-blxjtnoa [Excedrin Extra Strength] 250-250-65 mg tablet 1 tablet PO Q4-6H PRN (Reason: headache) levetiracetam [Keppra] 1,000 mg tablet 2,000 mg PO BID Qty: 30 0RF lactulose 20 gram packet 20 g PO BID Qty: 15 0RF Follow-up/Referrals: Jn,Roxy Quevedo, GROUTER HELPER [Primary Care Provider, Unknown]
[2025-02-17 13:17] VITALS: BP 149/73; PULSE 85; RESP 14; O2SAT 100
[2025-02-17] MEDS: levETIRAcetam 1000MG/NACL100ML 1,000 MG/100 ML BAG 400 MG IVPB (13:17)
[2025-02-17] MEDS: SODIUM CHLORIDE 0.9% IV 1,000 ML 999 ML IV CONT (13:44)
--- NOTE | 2025-02-17 14:01 | PC.NURSE ---
Pt had a seizure in CT scan at this time. Seizure lasted approx 45 seconds, tonic clonic. Pt is now post-ictal, responsive to harsh sternal rub and was given 2mg of ativan.
[2025-02-17 14:03] LABS: Cannabinoid Screen Urine Positive (Negative)
[2025-02-17] MEDS: LORazepam INJ (*CRX) 2 MG/ML VIAL (14:03)
[2025-02-17 14:12] LABS: Add Urine Microscopic? YES; Appearance Urine Clear (Clear); Broad Cast Urine Present; Glucose Urine UA Negative (Negative); Leukocyte Esterase Ur Negative LEU/UL (Negative); Need Manual Microscopic Reviewed; Nitrate Urine Negative (Negative); Specific Grav Ur 1.025 (1.001-1.035)
[2025-02-17 16:21] VITALS: PULSE 86; RESP 14; O2SAT 96
[2025-02-17 17:21] VITALS: BP 133/59; PULSE 88; RESP 24; O2SAT 95
[2025-02-17 20:00] VITALS: BP 148/75; PULSE 78; RESP 18
[2025-02-17] MEDS: levETIRAcetam IV 2,000 MG in DEXTROSE 5% 100 ML 480 MG IVPB (20:58)
[2025-02-17] MEDS: SODIUM CHLORIDE 0.9% IV 1,000 ML 125 ML IV CONT (21:31)
--- NOTE | 2025-02-18 01:38 | PM.IMHP2 ---
H&P: HPI History of Present Illness Date/Time: 02/18/25 01:38 Chief Complaint: Found unconscious Narrative: 59-year-old male with a past medical history of hepatocellular carcinoma treated with TACE, hepatitis-B, cirrhosis with ascites, COPD, methamphetamine abuse/marijuana use, seizure disorder and medication noncompliance who presented to the ER via EMS after being found unconscious on the garage floor. The patient follows with Neurology and hepatology at [facility]. The patient was presumed to have had a seizure given his prior history of seizures since 2019. He had been hospitalized the 1st week in January due to breakthrough seizure as well. On EMS arrival to the scene the patient had scattered abrasions across both arms. The patient was localizing to pain on arrival to the ER but not following commands. He was intentionally rolling himself around in the bed and was putting his fingers down his throat to make himself vomit. While in the ER he did have a witnessed tonic clonic seizure. He received 2 mg of Ativan and 1 g of Keppra. On exam the patient was noted have a markedly distended abdomen and does have a known history of cirrhosis. With light palpation of patient's abdomen he did moan and grimace trying to move away from exam. He is still having garbled indistinguishable speech but was intermittently following commands. The patient was noted to have inappropriate behavior in the ER in would sit up in urinate in the tray around the IV pole. He also had some episodes of urinary incontinence and would intermittently used the urinal. He did not have any witnessed bowel movements in the ER. He was unable to answer any orientation questions. Initial labs in the ER demonstrated normal white count and hemoglobin with chronically low platelets. Coag panel was unremarkable. Serum bicarb was mildly low an AST and ALT or within normal limits. Although patient had reported abstinence from amphetamines during prior hospitalization with negative drug screen his urine drug screen today was positive for amphetamines. Review of Systems Review of Systems: Review of systems unobtainable due to patient's mentation. [facility] Past Medical History Medical History (Updated 02/18/25 @ 03:54 by Ramona Naqvi DO) BPH (benign prostatic hyperplasia) Narcotic withdrawal epilepsy Alcohol abuse Most recent use 10/29/2020 Chronic pain syndrome Hx of peptic ulcer as a child GERD (gastroesophageal reflux disease) History of hepatitis B COPD (chronic obstructive pulmonary disease) Cirrhosis Hepatocellular carcinoma radiation treatment Seizure Hepatic encephalopathy Surgical History Surgical History History of tibial fracture requiring surgical repair. History of cholecystectomy Family History Family History Father Hypertension Cerebrovascular accident Myocardial infarct Sibling Hypertension Sibling Hypertension Father Hypertension Cerebrovascular accident Family history of coronary artery disease Sibling Hypertension Social History Social History (Updated 02/18/25 @ 03:12 by Ramona Naqvi DO) Social History: Smokes 0.5-1 ppd since 17yo. Lives at home with his and children. He is a full code. The patient had 7 children. He is on disability. He has a distant history of cocaine use. As of his recent hospitalization 01/29/2025 he had not used methamphetamines for approximately 15 years but urine drug screen is now positive for methamphetamines 02/17/2025. He uses marijuana gummies. Code status: Full code Surrogate decision maker: Smoking packs per day: 1 Smoking cigarettes per day: 20.0 Years smoked: 39 Smoking pack-years: 39.00 Smoking status: Current every day smoker Tobacco type: cigarettes Second hand tobacco smoke exposure: Yes Smoking end date: 03/01/13 Additional smoking assessment comments: Currently trying to quit. Alcohol intake: former Drinks per week: 0 Alcohol use details: Alcohol use noted 10/29/2020 with etoh level of 24. Substance use: current Substance use type: marijuana Other substance usage details: hx of cocaine, meth 15 years ago Last use: 15 years ago Lack of Transportation: YES Lack of Food: Never True Current Housing: I Have Housing Concerned About Future Housing: No Difficulty Paying Gas/Electric Bills: YES Difficulty Paying for Meds: YES Currently Unemployed: No Education: High School Diploma/GED Difficulty w/ Childcare or Family Care: No Living arrangements: with family Occupation/Education: other Gender identity (if verbalized by the patient): Male Sexual Orientation (if Verbalized by the Patient): Straight or Heterosexual Spiritual care concerns: No Agree to blood products: Yes Meds Home Medications and Allergies Home Medications ?Medication ?Instructions ?Recorded ?Confirmed ?Type gabapentin 800 mg tablet 800 mg PO QID 02/16/20 01/29/25 History tenofovir disoproxil fumarate 300 300 mg PO DAILY 02/16/20 01/29/25 History mg tablet tamsulosin 0.4 mg capsule 0.4 mg PO DAILY 01/11/21 01/29/25 History hydrocodone 5 mg-acetaminophen 325 1 tablet PO TID PRN Pain, Moderate 08/13/22 01/29/25 History mg tablet albuterol sulfate 90 mcg/actuation 2 puff inhalation Q4-6H PRN 02/22/24 01/29/25 Rx aerosol inhaler shortness of breath or wheezing 30 days #8.5 grams ondansetron 4 mg disintegrating 4 mg PO Q6H PRN nausea and 02/22/24 01/29/25 Rx tablet vomiting 3 days #12 tabs acetaminophen 500 mg tablet 1,000 mg (2 x 500 mg) PO TID PRN 05/07/24 01/29/25 Rx (Tylenol Extra Strength) pain #30 tabs budesonide 160 mcg-glycopyr 9 2 inh inhalation BID 12/09/24 01/29/25 History mcg-formot 4.8 mcg/actuation HFA inhaler (Breztri Aerosphere) ferrous sulfate 325 mg (65 mg 325 mg PO DAILY 12/09/24 01/29/25 History iron) tablet (Feosol) nortriptyline 10 mg capsule 10 mg PO QHS 12/09/24 01/29/25 History pantoprazole 40 mg tablet,delayed 40 mg PO DAILY 12/09/24 01/29/25 History release topiramate 50 mg tablet 50 mg PO Q12H PRN headache 12/09/24 01/29/25 History fpantar-vcdqfixcbaybh-vgyzrmks 250 1 tablet PO Q4-6H PRN headache 01/29/25 01/29/25 History mg-250 mg-65 mg tablet (Excedrin Extra Strength) lactulose 20 gram oral packet 20 g PO BID #15 ea 01/30/25 Rx levetiracetam 1,000 mg tablet 2,000 mg (2 x 1,000 mg) PO BID #30 01/30/25 01/29/25 Rx (Keppra) tabs Allergies Allergy/AdvReac Type Severity Reaction Status Date / Time hornet venom Allergy Unknown Unknown Verified 02/17/25 11:36 strawberry Allergy Unknown Unknown Verified 02/17/25 11:36 ciprofloxacin Allergy Unknown Verified 02/17/25 11:36 fentanyl Allergy Unknown Verified 02/17/25 11:36 metronidazole AdvReac Unknown Nausea And Verified 02/17/25 11:36 Vomiting Vital Signs Vital Signs - 24 hr 02/17/25 11:27 02/17/25 11:33 02/17/25 11:34 Pulse Rate 72 73 Respiratory Rate 21 H Blood Pressure 133/61 Pulse Oximetry 100 Oxygen Delivery Room Air Room Air 02/17/25 11:35 02/17/25 13:17 02/17/25 16:21 Pulse Rate 85 86 Respiratory Rate 14 14 Blood Pressure 149/73 H Pulse Oximetry 100 96 Oxygen Delivery Room Air 02/17/25 17:21 Pulse Rate 88 Respiratory Rate 24 H Blood Pressure 133/59 L Pulse Oximetry 95 Oxygen Delivery Exam Narrative: Weight 58.7 kg BMI 20.9 Const: Other: Acutely ill-appearing, appears much older than stated age, thin body habitus HENMT: Other: Mucous membranes are dry, no oral pharyngeal erythema oral exam limited due to difficulty with patient following commands and lack of cooperation but patient appears to be edentulous Eyes: Other: Positive conjunctival pallor, no scleral icterus, pupils are equal and reactive Neck: Other: No JVD, no thyromegaly Resp: Other: Clear to auscultation bilaterally, no increased work of breathing Cardio: Other: Tachycardic, regular rhythm, 2+ bilateral radial pedal pulses GI: Other: Abdomen is distended with evidence of caput medusa, tenderness to light palpation of the abdomen, positive fluid wave : Other: Normal circumcised male Skin: Other: Varices noted across the abdomen, multiple scattered tattoos on the extremities, poor skin turgor Neuro: Other: Patient moves all extremities equally, no obvious tremor, no tongue deviation, eyes appear conjugate but I exam is limited due to patient's mentation, D tendon reflexes intact Extrem: Other: No clubbing, cyanosis or edema, 5/5 television receiver analyzer strength bilateral Psych: Other: Encephalopathic, poor judgment and insight Results Labs Labs: Laboratory Tests 02/17/25 11:39 02/17/25 11:39 02/17/25 02/17/25 11:39 13:38 WBC 8.0 RBC 3.76 L Hgb 11.6 L Hct 34.4 L MCV 91.5 MCH 30.9 MCHC 33.7 RDW 16.2 H Plt Count 92 L MPV 12.0 H Immature Gran % (Auto) 0.1 Neut % (Auto) 88.4 H Lymph % (Auto) 7.8 L [place] % (Auto) 3.1 Eos % (Auto) 0.3 Baso % (Auto) 0.3 Lymph # (Auto) 0.62 L [place] # (Auto) 0.3 Eos # (Auto) 0.0 Baso # (Auto) 0.0 Abs Immat Gran (auto) 0.01 Absolute Neuts (auto) 7.0 H Absolute Nucleated RBC 0.000 Nucleated RBC % 0.0 % Immature Plt Fraction 9.5 PT 16.0 H INR 1.3 APTT 26.0 Sodium 140 Potassium 3.9 Chloride 111 H Carbon Dioxide 20 L Anion Gap 9 BUN 14 Creatinine 0.72 Estim Creat Clear Calc 77 Estimated GFR > 60 Glucose 166 H Calcium 9.6 Total Bilirubin 1.0 AST 47 ALT 37 Alkaline Phosphatase 252 H Total Protein 8.2 Albumin 4.0 Urine Color Yellow Urine Appearance Clear Urine pH 6.0 Ur Specific [place] 1.025 Urine Protein 1+ H Urine Glucose (UA) Negative Urine Ketones Negative Ur Blood (Man) Negative Urine Nitrate Negative Urine Bilirubin Negative Urine Urobilinogen 1.0 Add Ur Microanalysis Reviewed Leukocyte Esterase Rfl Negative Urine RBC 0-2 Urine WBC 0-5 Ur Squamous Epith Cells None seen Ur Transition Epith Cell Rare Urine Bacteria None seen Urine Casts 3-5 Broad Casts Present Urine Opiates Screen Negative Urine Methadone Screen Negative Ur Barbiturates Screen Negative Ur Phencyclidine Scrn Negative Ur Amphetamine Screen Positive A U Benzodiazepines Scrn Negative Urine Cocaine Screen Negative U Cannabinoids Screen Positive A Ethyl Alcohol < 10 Impressions Chest X-Ray 02/17/25 13:[address]: [address] chest to better evaluate left upper lobe nodule. Head CT 02/17/25 15:56 IMPRESSION: 1. No acute findings in the limited noncontrast CT head. Mild the left maxillary sinusitis. Chest/Abdomen/Pelvis CT 02/17/25 16:17 IMPRESSION: 1. Severe emphysematous changes of lungs. Bilateral upper lobe noncalcified nodules as mentioned above. Possible pulmonary neoplasm. Further evaluation by PET CT scan is recommended. 2. Mildly contracted left lobe of the liver with nodular outline. Dilated portal vein and large amount of ascites are noted suggestive of portal venous hypertension. Presence of paraesophageal venous varices is also noted in the lower mediastinum. EKG: Test Date: 2025-02-17 11:43:56 Measurements Intervals Rankin Rate: 77 P: 77 CO: 148 QRS: 45 QRSD: 93 T: 86 QT: 393 QTc: 445 Interpretive Statements SINUS RHYTHM POSSIBLE LEFT ATRIAL ENLARGEMENT INCOMPLETE RIGHT BUNDLE BRANCH BLOCK NONSPECIFIC ST & T-WAVE ABNORMALITY- DIFFUSE LEADS BASELINE ARTIFACT- II, III, AVR, AVL, AVF, V1-V6 BORDERLINE ECG Compared to ECG 01/29/2025 14:20:59 NO SIGNIFICANT CHANGE All imaging and EKGs personally reviewed and interpreted. And unless stated otherwise agree with radiologic and cardiology interpretation. Quality VTE Prophylaxis VTE prophylaxis: mechanical ordered (SCDs) Assessment and Plan Assessment and plan (1) Acute encephalopathy: Code(s): G93.40 - Encephalopathy, unspecified Status: Acute (2) Polysubstance abuse: Code(s): F19.10 - Other psychoactive substance abuse, uncomplicated Status: Acute (3) Seizure: Code(s): R56.9 - Unspecified convulsions Status: Acute (4) Pulmonary nodule: Code(s): R91.1 - Solitary pulmonary nodule Status: Acute (5) Cirrhosis of liver with ascites: Qualifiers: Hepatic cirrhosis type: unspecified hepatic cirrhosis Qualified Code(s): K74.60 - Unspecified cirrhosis of liver; K72.90 - Hepatic failure, unspecified without coma Code(s): K74.60 - Unspecified cirrhosis of liver; K72.90 - Hepatic failure, unspecified without coma Status: Acute (6) Hepatocellular carcinoma: Code(s): C22.0 - Liver cell carcinoma Status: Acute (7) Fecal impaction of colon: Code(s): K56.41 - Fecal impaction Status: Acute (8) Abdominal pain: Qualifiers: Abdominal location: generalized Qualified Code(s): R10.84 - Generalized abdominal pain Code(s): R10.9 - Unspecified abdominal pain Status: Acute (9) BPH (benign prostatic hyperplasia): Qualifiers: Lower urinary tract symptom presence: unspecified whether lower urinary tract symptoms present Qualified Code(s): N40.0 - Benign prostatic hyperplasia without lower urinary tract symptoms Code(s): N40.0 - Benign prostatic hyperplasia without lower urinary tract symptoms Status: Chronic Plan Patient presents with altered mental status which was presumed to be due to seizure given history of prior breakthrough seizures and presence of multiple skin tears and bruising to the tongue suggesting seizure. Patient also had witnessed seizure in the ER. Initially was felt that the patient's altered mental status was due to seizure and postictal state. He received IV Keppra 2 g which is his home dose. But patient is still altered several hours after seizure activity. On further evaluation the patient is noted to have severe distension with ascites. On review of prior imaging it appears that the ascites seems to be new. Ascites could be due to decompensated cirrhosis and or malignant and nature given prior history of hepatocellular carcinoma. Given presence of encephalopathy and ascites will treat empirically for SBP. Will obtain blood cultures and start patient on Rocephin 2 g IV daily. Will request IR consult for diagnostic and therapeutic paracentesis but unfortunately IR is not available in still Wednesday at the earliest. Will repeat his CBC and monitor for signs of infection. Given the patient's encephalopathy a did order a ammonia level which was less than 9 in significantly improved compared to prior value earlier in January.. Given the presence of rectosigmoid fecal impaction will give patient lactulose enema see if we cannot stimulate passage of the stool. Even the ammonia level is not elevated he could still have some hepatic encephalopathy is ammonia level does not necessarily directly correlated with degree of encephalopathy. Encephalopathy could also be due to polysubstance abuse with positive urine drug screen. Patient has diabetes could be due to cirrhosis verses malignancy given history of hepatocellular carcinoma. Patient's imaging also demonstrates pulmonary nodules raising concern for possible pulmonary malignancy in the setting of heavy lifetime tobacco use. Given appearance of lung nodules being associated with primary liver malignancy metastasizing to lungs. Will send peritoneal fluid for pathology as well as infectious markers. Will also check alpha fetoprotein. Patient does have history of BPH and bladder was mildly distended on imaging but patient seems to be having copious amounts of urine output. Given the patient's encephalopathy did not feel safe giving the patient his oral medications. Will also hold gabapentin, [place], nortriptyline. Given degree of encephalopathy patient is NPO except for ice chips until he is more appropriate and we are better able to assess his swallow function. I am unable to verify the patient's home medications at this time. Given evidence of esophageal varices will place patient on Protonix for GI prophylaxis. I did not call the patient to verify information due to the lateness of the hour. Source of information comes from ER records, review of past medical records, ER physician and nursing report. Patient has been admitted as observation status. MEDICAL DECISION MAKING NARRATIVE -Spoke with the ED provider in detail regarding patient's evaluation, workup and management -Patient seen and examined at bedside -Collaborated with patient's nurse at the bedside in detail and addressed all concerns -Labs, electrolytes, radiology, investigations and test results personally reviewed and interpreted unless otherwise specified -ED/Consult/Nursing/Ancilliary notes on the chart reviewed and appreciated -applicable past medical records and labs were reviewed and unless stated otherwise. Time Spent with Patient Time with patient: 75 minutes or greater Hospitalist MIPS Advance Care Plan I have confirmed that the patient's Advanced Care Plan is present, code status is documented, or surrogate decision maker is listed in patient medical record.: Yes Medication Reconciliation The patient is not eligible for med reconciliation; the patient is in a emergent medical situation where delaying treatment would jeopardize the patients health.: Yes
[2025-02-18 02:51] LABS: Hematocrit 33.7 % (42.0-52.0); Hemoglobin 11.4 g/dL (14.0-18.0); Immature Granulocyte Percent A 0.4 % (0-0.5); Immature Platelet Fraction Pct 6.0 % (0.9-11.2); Lymphocytes Absolute Auto 0.57 K/mm3 (0.9-3.2); Mean Corpuscular HGB Conc 33.8 g/dl (32-36); Mean Corpuscular Hemoglobin 31.2 pg (26-34); Mean Corpuscular Volume 92.3 fl (80-100); Nucleated Red Blood Cells Absolute Auto 0.000 K/mm3 (0.0-0.012); Nucleated Red Blood Cells Perc 0.0 % (0.0-0.2); Platelet Count Result 78 k/mm3 (150-375); Red Blood Count 3.65 M/mm3 (4.6-6.20); White Blood Count 7.4 K/mm3 (4.5-10.0)
[2025-02-18 02:58] LABS: Ammonia < 9 umol/L (9-30)
[2025-02-18 03:01] LABS: Alanine Aminotransferase 35 U/L (6-50); Albumin Level 4.1 g/dL (3.5-5.1); Alkaline Phosphatase 240 U/L (38-126); Anion Gap 8 mmol/L (4-12); Aspartate Amino Transferase 45 U/L (17-59); Bilirubin,Total 0.9 mg/dL (0.2-1.3); Blood Urea Nitrogen 12 mg/dL (9-20); Calcium 9.8 mg/dL (8.4-10.2); Carbon Dioxide 23 mmol/L (22-30); Chloride 113 mmol/L (98-107); Estimated CRCL calculation 87 ml/min; Estimated Glomerular Filt Rate > 60; Glucose 104 mg/dL (65-110); Magnesium 1.7 mg/dL (1.6-2.3); Potassium 4.0 mmol/L (3.4-5.0); Sodium 144 mmol/L (137-145); Total Protein 8.4 g/dL (6.3-8.2)
[2025-02-18] MEDS: cefTRIAXone 2 GM in SODIUM CHLORIDE 0.9% IV 100 ML 200 ML IVPB ×2 (03:09→23:20)
[2025-02-18 03:17] LABS: Anisocytosis 1+; Ovalocytes Occasional; Schistocytes None Seen
--- NOTE | 2025-02-18 03:51 | CY_PTH ---
PATIENT: Ronan Baez LOC: [id number] U#:[id number] AGE/SX: 59/M ROOM: 246 RE02/17/[address]: Marco Hunt MD : [id number] BED: 01 DIS: 02/19/2025 SPEC #: [id number] RECD: 02/19/25 11:49 STATUS: MARYCHUYChloe REQ #: [id number] SHAISTA: 02/18/25 03:[address]: Ramona Naqvi DEPT: [facility] Cytology RECD BY: Maira Burch ENTERED: 02/19/25 11:50 SP TYPE: Cytology OT DR: LUCA Santos MD Macy D. Thilker, MANAGER UTILITY Tissues: A - Peritoneal Fluid Procedures: TTF Hematoxylin and Eosin Stain Cell Block CD68 Cytopathology Smear GUILLERMINA-EP4 Calretinin Cytopathology Cytospin Hepatocyte
[2025-02-18 10:03] VITALS: BP 149/82; PULSE 73; RESP 16; TEMP 36.4; O2SAT 100
[2025-02-18] MEDS: PANTOPRAZOLE SODIUM IV 40 MG VIAL IV PUSH (10:05)
[2025-02-18] MEDS: SODIUM CHLORIDE 0.9% IV 1,000 ML 125 ML IV CONT ×2 (10:10→20:30)
--- NOTE | 2025-02-18 10:28 | WPCEDHO ---
ED Hand Off Checklist All vitals saved: Y IV Site documented: Y All med administrations documented: Y Triage Note Triage Note Pt to ED via [facility] from 02/17/25 11:27 home for possible seizure. Pt arrives to ED disoriented and grunting. Per EMS, pt is more unresponsive postictally than usual. Pt A&O status is unable to be assessed at this time due to pt responsiveness. Pt is alert to painful stimuli. Pt has hepatitis c, per EMS. Allergies hornet venom Allergy (Unknown, Verified 02/17/25 11:36) Unknown strawberry Allergy (Unknown, Verified 02/17/25 11:36) Unknown ciprofloxacin Allergy (Verified 02/17/25 11:36) Unknown fentanyl Allergy (Verified 02/17/25 11:36) Unknown metronidazole Adverse Reaction (Unknown, Verified 02/17/25 11:36) Nausea And Vomiting Current Diagnoses Liver cell carcinoma (02/17/25) Other psychoactive substance abuse, uncomplicated (02/17/25) Encephalopathy, unspecified (02/17/25) Fecal impaction (02/17/25) Hepatic failure, unspecified without coma (02/17/25) Unspecified cirrhosis of liver (02/17/25) Benign prostatic hyperplasia without lower urinary tract symptoms (02/17/25) Generalized abdominal pain (02/17/25) Unspecified convulsions (02/17/25) Solitary pulmonary nodule (02/17/25) Family History (Last Reviewed 02/18/25 @ 03:10 by Ramona Naqvi DO) Father Hypertension Cerebrovascular accident Myocardial infarct Sibling Hypertension Sibling Hypertension Father Hypertension Cerebrovascular accident Family history of coronary artery disease Sibling Hypertension Active Medications including assessments/comments Levetiracetam 2,000 mg/ (Dextrose) 120 mls @ 480 mls/hr IVPB Q12HR JOEL Last Admin: 02/18/25 10:05 Dose: 480 mls/hr Documented By: LEV Infusion/Titration Document 02/18/25 10:05 LEV (Rec: 02/18/25 10:05 LEV [id number]) Intake IV Site Peripheral Access Right Antecubital Cumulative Intake ( 120 Rx) Container Volume 120 Waste Amount 0 Dosing Infusion Rate 480 Cumulative Dose 2000 Increase/Decrease Started/Running Elapsed Time Elapsed Time ( 26m minutes) Infusion: 02/17/25 21:24 Dose: Infused Documented By: FRANCIS Infusion/Titration Document 02/17/25 21:24 JJJ (Rec: 02/17/25 21:24 JJJ [id number]) Intake Intake 120 Cumulative Intake ( 120 bag) Cumulative Intake ( 120 Rx) Container Volume 0 Waste Amount 0 Dosing Infusion Rate 0 Cumulative Dose 2000 Increase/Decrease Infused Elapsed Time Elapsed Time ( 26m minutes) Admin: 02/17/25 20:58 Dose: 480 mls/hr Documented By: JJJ Infusion/Titration Document 02/17/25 20:58 JONOJ (Rec: 02/17/25 20:58 RobynJ [id number]) Intake IV Site Peripheral Access Left Antecubital Container Volume 120 Waste Amount 0 Dosing Infusion Rate 480 Increase/Decrease Started Elapsed Time Elapsed Time ( 0m minutes) Sodium Chloride (Normal Saline Iv) 1,000 mls @ 125 mls/hr IV CONT .Q8H JOEL Last Admin: 02/18/25 10:10 Dose: 125 mls/hr Documented By: LEV Infusion/Titration Document 02/18/25 10:10 LEV (Rec: 02/18/25 10:10 LEV [id number]) Intake IV Site Peripheral Access Right Antecubital Cumulative Intake ( 1,000 Rx) Container Volume 1,000 Waste Amount 0 Dosing Infusion Rate 125 Cumulative Dose Not Applicable Increase/Decrease Started/Running Elapsed Time Elapsed Time ( 8h 37m minutes) Infusion: 02/18/25 06:08 Dose: Infused Documented By: JJJ Infusion/Titration Document 02/18/25 06:08 RobynJJ (Rec: 02/18/25 06:08 JJJ [id number]) Intake Intake 1,000 Cumulative Intake ( 1,000 bag) Cumulative Intake ( 1,000 Rx) Container Volume 0 Waste Amount 0 Dosing Infusion Rate 0 Cumulative Dose Not Applicable Increase/Decrease Infused Elapsed Time Elapsed Time ( 8h 37m minutes) Admin: 02/17/25 21:31 Dose: 125 mls/hr Documented By: JJJ Infusion/Titration Document 02/17/25 21:31 JJJ (Rec: 02/17/25 21:31 JJJ [id number]) Intake IV Site Peripheral Access Left Antecubital Container Volume 1,000 Waste Amount 0 Dosing Infusion Rate 125 Cumulative Dose Not Applicable Increase/Decrease Started Elapsed Time Elapsed Time ( 0m minutes) Pantoprazole Sodium (Pantoprazole Sodium Iv 40 Mg Vial) 40 mg IV PUSH QAM JOEL Last Admin: 02/18/25 10:05 Dose: 40 mg Documented By: LEV Administered/Completed Medications Discontinued Medications Sodium Chloride (Normal Saline Iv) 1,000 mls @ 999 mls/hr IV CONT .Q1H1M STA Stop: 02/17/25 13:07 Last Infusion: 02/17/25 14:50 Dose: Infused Documented By: Admin: 02/17/25 13:44 Dose: 999 mls/hr Documented By: FLORENCE Levetiracetam (Keppra Iv) 1,000 mg in 100 mls @ 400 mls/hr IVPB ONCE STA Stop: 02/17/25 13:14 Last Infusion: 02/17/25 13:43 Dose: Infused Documented By: Admin: 02/17/25 13:17 Dose: 400 mls/hr Documented By: FLORENCE Ceftriaxone Sodium 2 gm/ (Sodium Chloride) 100 mls @ 200 mls/hr IVPB ONCE ONE Stop: 02/18/25 02:29 Last Infusion: 02/18/25 03:50 Dose: Infused Documented By: Admin: 02/18/25 03:09 Dose: 200 mls/hr Documented By: FRANCIS Lactulose (Lactulose Enema 200 Gm/1,000 Ml Enema) 200 gm RECTAL ONCE ONE Stop: 02/18/25 03:45 Last Admin: 02/18/25 04:35 Dose: Not Given Documented By: FRANCIS Non-Admin Reason: See Notes Comments: spoke with MD patient does not need medication at this time d/t status Lorazepam (Lorazepam Inj (*Crx) 2 Mg/Ml Vial) Confirm Administered Dose 2 mg .ROUTE .STK-MED ONE Stop: 02/17/25 13:59 Last Admin: 02/17/25 14:03 Dose: 2 mg Documented By: FLORENCE Notes 02/17/25 14:01 Nurse Note by Beth Laurent Pt had a seizure in CT scan at this time. Seizure lasted approx 45 seconds, tonic clonic. Pt is now post-ictal, responsive to harsh sternal rub and was given 2mg of ativan. Initialized on 02/17/25 14:01 - END OF NOTE Interventions/Assessments Cardiac Monitoring Start: 02/17/25 11:26 Freq: Status: Active Protocol: Document 02/17/25 11:34 MCO (Rec: 02/17/25 11:34 MCO [id number]) Betting Agency Manager Assessment Betting Agency Manager Yes Applied Pulse Rate (60-100 73 beats/min) EKG Rythm Sinus Rhythm IV / Saline Lock, Insert Start: 02/17/25 11:32 Freq: STAT Status: Active Protocol: Document 02/18/25 05:49 JJJ (Rec: 02/18/25 05:50 JJJ [id number]) IV Assessment Peripheral Access Right Antecubital IV Catheter Access Initiated IV Insertion Date 02/18/25 IV Insertion Time 05:50 Catheter Gauge 18 IV Insertion 3 Attempts IV Site Assessment WNL IV Care and WNL Maintenance Peripheral Access Left Antecubital IV Catheter Access Discontinued Access Additional IV patient pulled out access Comments Peripheral Access Left Hand IV Catheter Access Discontinued Access Additional IV patient pulled out access Comments PA: Gastrointestinal Assessment Start: 02/18/25 05:30 Freq: Status: Active Protocol: Document 02/18/25 05:30 JJJ (Rec: 02/18/25 05:31 JJJ [id number]) GI Assessment Pattern Normal Flatus Present Stool Brown Characterisitics Stool Size Moderate PA: Neurological Assessment Start: 02/17/25 11:26 Freq: Status: Active Protocol: Document 02/18/25 05:31 JJJ (Rec: 02/18/25 05:33 JJJ [id number]) Neurological Assessment Level of Awake Consciousness Arousable to Touch Orientation Unable to Assess Neurological Confusion Symptoms Unable to Redirect Yes Behavior Behavior Restless,Uncooperative Patient Unable to Comprehend Comprehension Memory Description Unable to Assess Ability to Maintain Impaired Balance Facial Symmetry Symmetrical Speech Pattern Slurred Ability to Swallow Normal Ariana Coma Scale Eyes To Voice Verbal Disoriented Motor Withdraws to Pain Ariana Coma Total 11 Score PA: Respiratory Assessment Start: 02/17/25 11:26 Freq: Status: Active Protocol: Document 02/17/25 11:35 MCO (Rec: 02/17/25 11:35 MCO [id number]) Respiratory Assessment Symptoms None Effort Normal,Grunting Pattern Regular Depth Normal Cough Description None Sputum Amount None Oxygen Delivery Oxygen Delivery Room Air Last Vital Signs Temperature 97.5 F L 02/18/25 10:03 Pulse Rate 73 02/18/25 10:03 Respiratory Rate 16 02/18/25 10:03 Pulse Oximetry 100 02/18/25 10:03 Blood Pressure 149/82 H 02/18/25 10:03 Blood Pressure Mean 104 02/18/25 10:03 Blood Pressure Position Supine 02/18/25 10:03 Oxygen Delivery Room Air 02/17/25 11:35 Weight 58.7 kg 02/17/25 11:27 Last Result - Abnormals Only RBC 3.65 M/mm3 (4.6-6.20) L 02/18/25 02:35 Hgb 11.4 g/dL (14.0-18.0) L 02/18/25 02:35 Hct 33.7 % (42.0-52.0) L 02/18/25 02:35 RDW 16.1 % (11.5-14.5) H 02/18/25 02:35 Plt Count 78 k/mm3 (150-375) L 02/18/25 02:35 MPV 12.1 fl (7.4-10.4) H 02/18/25 02:35 Neut % (Auto) 87.2 % (45.5-73.1) H 02/18/25 02:35 Lymph % (Auto) 7.7 % (18.3-44.2) L 02/18/25 02:35 Baso % (Auto) 0.1 % (0.2-1.2) L 02/18/25 02:35 Lymph # (Auto) 0.57 K/mm3 (0.9-3.2) L 02/18/25 02:35 Absolute Neuts (auto) 7.0 K/mm3 (1.3-6.7) H 02/17/25 11:39 PT 16.0 Seconds (11.1-14.7) H 02/17/25 11:39 Chloride 113 mmol/L (98-107) H 02/18/25 02:35 Carbon Dioxide 20 mmol/L (22-30) L 02/17/25 11:39 Creatinine 0.63 mg/dL (0.7-1.3) L 02/18/25 02:35 Glucose 166 mg/dL (65-110) H 02/17/25 11:39 Alkaline Phosphatase 240 U/L (38-126) H 02/18/25 02:35 Ammonia < 9 umol/L (9-30) L 02/18/25 02:35 Total Protein 8.4 g/dL (6.3-8.2) H 02/18/25 02:35 Urine Protein 1+ mg/dL (Negative) H 02/17/25 13:38 Ur Amphetamine Screen Positive (Negative) A 02/17/25 13:38 U Cannabinoids Screen Positive (Negative) A 02/17/25 13:38
--- NOTE | 2025-02-18 10:48 | PM.EVENT ---
Event Note Event Note Event Note: Patient is a 59-year-old male who presented to the emergency department after being found unresponsive in his garage. Patient has a past medical history per medical chart of hepatocellular carcinoma, cirrhosis, hepatitis-B, COPD, methamphetamine abuse and marijuana use, seizure disorder as well as medication noncompliance. Patient continued to have altered mental status in the emergency department and acting out inappropriately per medical chart. However during patient's time in the emergency department he had a tonic-clonic seizure witnessed by staff at which time he was given Ativan and 2 g Keppra. Per the medical chart patient does follow with Neurology and hepatology at [facility]. Patient was admitted to the medical unit and continued on IV Keppra, seizure precautions and orders for paracentesis due to moderate to severe ascites. Will start patient on oral spironolactone daily. Patient with minimal conversation stated to just leave him alone but was aware he was in the hospital did state I can speak with regarding his current condition.
--- NOTE | 2025-02-18 11:00 | ADMGEN ---
This patient, Ronan Baez, was admitted to Medical Room 246-01. Patient/family oriented to hospital policies and general routines including ID bracelet, bed and alarms, visiting hours, pain management, procedures, bathroom and other care routines, personal items, smoking policy, room service/diet, and visiting hours. Information on how to activate the Rapid Response Team has been discussed. Patient/Family are encouraged to report perceived risks to care and to ask questions if they do not understand what they are told or what they should do.
[2025-02-18 11:30] VITALS: BMI 20.9
[2025-02-18] MEDS: levETIRAcetam 1000MG/NACL100ML 1,000 MG/100 ML BAG 400 MG IVPB ×4 (12:53→21:43)
[2025-02-18 13:17] VITALS: PULSE 80; RESP 16; O2SAT 100
--- NOTE | 2025-02-18 15:45 | PC.NURSE ---
Addendum entered by Charbel Fatima RN 02/18/25 18:15: gricelda can. Educated patient on orientation, safety and call light use. Patient returned to bed and deyanira care was provided. Reinforced safety and hospital environment to patient. Call light within reach. Original Note: Patient set bed alarm off. RN entered room and patient was standing at bedside urinating in
[2025-02-18 16:00] VITALS: PULSE 79
[2025-02-18] MEDS: GABAPENTIN 400 MG CAPSULE 800 MG PO ×2 (16:25→20:25)
[2025-02-18] MEDS: LACTULOSE 20 GM/30 ML UDC PO (16:25)
[2025-02-18] MEDS: ACETAMINOPHEN 325 MG TABLET 650 MG PO (16:25)
[2025-02-18 16:31] VITALS: BP 143/69; PULSE 76; RESP 16; TEMP 36.7; O2SAT 100
[2025-02-18 20:00] VITALS: PULSE 81
[2025-02-18] MEDS: ONDANSETRON INJ 4 MG/2 ML VIAL IV PUSH (20:17)
[2025-02-18] MEDS: NORTRIPTYLINE HCL 10 MG CAPSULE PO (20:25)
[2025-02-18] MEDS: HYDROcodone/acetaminophen (*CRX) 5-325 MG TABLET 1 TAB PO (20:26)
[2025-02-18 21:36] VITALS: BP 156/79; PULSE 64; RESP 16; TEMP 36.9; O2SAT 100
[2025-02-19] VITALS (8 sets, daily range): BP systolic 133–137; BP diastolic 74–78; PULSE 63–98; RESP 16–18; TEMP 36.4–37.1; O2SAT 94–100
[2025-02-19 05:41] LABS: Hematocrit 31.5 % (42.0-52.0); Hemoglobin 10.9 g/dL (14.0-18.0); Immature Platelet Fraction Pct 5.0 % (0.9-11.2); Mean Corpuscular HGB Conc 34.6 g/dl (32-36); Mean Corpuscular Hemoglobin 31.6 pg (26-34); Mean Corpuscular Volume 91.3 fl (80-100); Platelet Count Result 71 k/mm3 (150-375); Red Blood Count 3.45 M/mm3 (4.6-6.20); White Blood Count 5.4 K/mm3 (4.5-10.0)
[2025-02-19] MEDS: SODIUM CHLORIDE 0.9% IV 1,000 ML 125 ML IV CONT (06:01)
[2025-02-19 06:04] LABS: Alanine Aminotransferase 26 U/L (6-50); Albumin Level 3.2 g/dL (3.5-5.1); Alkaline Phosphatase 190 U/L (38-126); Anion Gap 7 mmol/L (4-12); Aspartate Amino Transferase 39 U/L (17-59); Bilirubin,Total 0.8 mg/dL (0.2-1.3); Blood Urea Nitrogen 17 mg/dL (9-20); Calcium 8.8 mg/dL (8.4-10.2); Carbon Dioxide 19 mmol/L (22-30); Chloride 111 mmol/L (98-107); Estimated CRCL calculation 86 ml/min; Estimated Glomerular Filt Rate > 60; Glucose 77 mg/dL (65-110); Magnesium 1.6 mg/dL (1.6-2.3); Potassium 3.3 mmol/L (3.4-5.0); Sodium 137 mmol/L (137-145); Total Protein 6.7 g/dL (6.3-8.2)
[2025-02-19] MEDS: levETIRAcetam 1000MG/NACL100ML 1,000 MG/100 ML BAG 400 MG IVPB ×2 (09:16→09:27)
[2025-02-19] MEDS: PANTOPRAZOLE SODIUM IV 40 MG VIAL IV PUSH (09:17)
[2025-02-19] MEDS: HYDROcodone/acetaminophen (*CRX) 5-325 MG TABLET 1 TAB PO (09:29)
[2025-02-19] MEDS: FERROUS SULFATE 325 MG TABLET PO (09:30)
[2025-02-19] MEDS: LACTULOSE 20 GM/30 ML UDC PO (09:31)
[2025-02-19] MEDS: GABAPENTIN 400 MG CAPSULE 800 MG PO ×2 (09:31→13:09)
[2025-02-19] MEDS: SPIRONOLACTONE 25 MG TABLET PO (09:31)
[2025-02-19] MEDS: TAMSULOSIN HCL 0.4 MG CAPSULE PO (09:31)
--- NOTE | 2025-02-19 12:11 | P.PNIM_ITS ---
Assessment and Plan Assessment and Plan (1) Acute encephalopathy: Code(s): G93.40 - Encephalopathy, unspecified Status: Acute Assessment and Plan: likely secondary to acute seizure repeat seizure witnessed in the emergency department if postictal state. Patient with history of cirrhosis ammonia level was normal. patient also with history of polysubstance abuse was positive for methamphetamines and cannabinoids patient is also noncompliant home medications. * neuro checks alert and oriented x3 today * continued treatment for seizures * continued patient's lactulose (2) Polysubstance abuse: Code(s): F19.10 - Other psychoactive substance abuse, uncomplicated Status: Acute Assessment and Plan: positive for methamphetamines and cannabinoids could be cause of patient's encephalopathy seizure * encouraged immediate cessation * provide resources to rehab (3) Seizure: Code(s): R56.9 - Unspecified convulsions Status: Acute Assessment and Plan: patient with history of seizures recent breakthrough seizure 2 weeks ago noncompliant with home medications and polysubstance abuse * received IV Keppra 1 g b.i.d. started in the emergency department transition patient to his oral Keppra of 2 g b.i.d. * seizure precautions * Ativan p.r.n. for breakthrough seizures * follows with Neurology at [facility] (4) Pulmonary nodule: Code(s): R91.1 - Solitary pulmonary nodule Status: Acute Assessment and Plan: CT abdomen pelvis showing pulmonary nodules suspicion for pulmonary neoplasm from hepatocellular carcinoma * Dr. Pacheco consulted evaluation appreciate any recommendations (5) Cirrhosis of liver with ascites: Qualifiers: Hepatic cirrhosis type: unspecified hepatic cirrhosis Qualified Code(s): K74.60 - Unspecified cirrhosis of liver; K72.90 - Hepatic failure, unspecified without coma Code(s): K74.60 - Unspecified cirrhosis of liver; K72.90 - Hepatic failure, unspecified without coma Status: Acute Assessment and Plan: * continue patient's lactulose and spironolactone * paracentesis 02/19/2025 yielded 1300 ML * IV albumin * follows with hepatobiliary at [facility] (6) Hepatocellular carcinoma: Code(s): C22.0 - Liver cell carcinoma Status: Acute Assessment and Plan: see above (7) BPH (benign prostatic hyperplasia): Qualifiers: Lower urinary tract symptom presence: unspecified whether lower urinary tract symptoms present Qualified Code(s): N40.0 - Benign prostatic hyperplasia without lower urinary tract symptoms Code(s): N40.0 - Benign prostatic hyperplasia without lower urinary tract symptoms Status: Chronic Assessment and Plan: * resume patient's Flomax (8) Malnourished: Qualifiers: Malnutrition type: unspecified type Qualified Code(s): E46 - Unspecified protein-calorie malnutrition Code(s): E46 - Unspecified protein-calorie malnutrition Status: Chronic Assessment and Plan: Severe Protein Calorie Malnutrition as related to inadequate protein-energy intake with increased protein-energy needs in setting of chronic disease as evidenced by minimal oral intake for > 1-2 months; severe subcutaneous fat loss (orbital fat pads) and severe muscle wasting (temporalis). * Protein shakes with each * Consult homicide squad commanding officer (9) Fecal impaction of colon: Code(s): K56.41 - Fecal impaction Status: Resolved Assessment and Plan: RESOLVED BM x 3 Plan Code status: Full code per patient DVT prophylaxis: SCDs PT/OT notes: ambulatory Disposition: patient continues admission to the medical unit to unresponsive episode likely secondary to breakthrough seizure patient is noncompliant with home medications reportedly follows with hepatobiliary and Neurology [facility]. Pulmonary nodule noted heme Onc has been consulted for any recommendations at this time. patient will likely discharge back to home when medically stable. depending on findings patient may need consult for palliative versus hospice care. Medical Record Review I have reviewed the following patient records and this information was taken into consideration when formulating the assessment and plan.: previous labs, previous ER visits and previous hospitalizations Consultations Consultations: I have discussed the care of this pt with the consulting providers. Time Spent With Patient Time with patient: 15 - 25 minutes Subjective Date/time seen: 02/19/25 12:11 Interval history: 59-year-old male with a past medical history of hepatocellular carcinoma treated with TACE, hepatitis-B, cirrhosis with ascites, COPD, methamphetamine abuse/marijuana use, seizure disorder and medication noncompliance who presented to the ER via EMS after being found unconscious on the garage floor. The patient was presumed to have had a seizure given his prior history of seizures since 2019. While in the ER he did have a witnessed tonic clonic seizure. He received 2 mg of Ativan and 1 g of Keppra. Admitted for further evaluation of of Breakthrough seizures also consulted Oncology for evaluation of patient's pul monary nodules. 02/19/2025: PAtient alert and oriented no further seizures. Tolerating oral intake and has no current complaints. Transitioning to PO keppra home dose and Hem/Onc consulted. Patient tolerated paracentesis that yeilded 1300 ML. Review of Systems Review of Systems: Review of systems unobtainable due to patient's mentation. All systems reviewed & are unremarkable except as noted in HPI and below Exam Narrative: Weight 58.7 kg BMI 20.9 Const: Other: Acutely ill-appearing, appears much older than stated age, thin body habitus, severely malnourished HENMT: Other: Mucous membranes are dry Eyes: Other: Positive conjunctival pallor, no scleral icterus, pupils are equal and reactive Neck: Other: No JVD, no thyromegaly Resp: Other: Clear to auscultation bilaterally, no increased work of breathing Cardio: Rate: regular rate Rhythm: regular rhythm GI: Other: Abdomen is distended with evidence of caput medusa, tenderness to light palpation of the abdomen, positive fluid wave Skin: Other: Varices noted across the abdomen, multiple scattered tattoos on the extremities, poor skin turgor Neuro: Speech: normal speech Motor exam (neuro): 5/5 motor strength present throughout Sensory Exam: normal sensation Other: Alert and oriented x 3 Extrem: Other: No clubbing, cyanosis or edema, 5/5 home visits nurse strength bilateral Psych: Appearance: disheveled Speech and movement: Normal speech and movement present Affect: Irritable affect present Thought process: Normal thought process present Insight: Poor insight present (Psych) Judgement: Poor judgement present (Psych) Objective Data Vital Signs Vital Signs: Vital Signs - 24 hr 02/18/25 13:17 02/18/25 16:00 02/18/25 16:31 Temperature 98.1 F Pulse Rate 80 79 76 Respiratory Rate 16 16 Blood Pressure 143/69 H Pulse Oximetry 100 100 Oxygen Delivery Room Air 02/18/25 20:00 02/18/25 20:00 02/18/25 21:36 Temperature 98.5 F Pulse Rate 81 64 Respiratory Rate 16 Blood Pressure 156/79 H Pulse Oximetry 100 Oxygen Delivery Room Air 02/19/25 00:00 02/19/25 04:00 02/19/25 05:57 Temperature 98.5 F Pulse Rate 66 63 64 Respiratory Rate 16 Blood Pressure 135/78 Pulse Oximetry 94 Oxygen Delivery 02/19/25 09:28 02/19/25 09:47 02/19/25 09:47 Temperature 97.5 F L Pulse Rate 80 80 75 Respiratory Rate 18 16 Blood Pressure 133/78 Pulse Oximetry 97 100 Oxygen Delivery Room Air Intake/Output Intake/Output: Intake & Output 02/16/25 02/17/25 02/18/25 02/19/25 23:59 23:59 23:59 23:59 Intake Total 1220 2600 1220 Output Total 40 200 1300 Balance 1180 2400 -80 Meds/Results Medications: Active Medications Generic Name Dose Route Start Last Admin Trade Name Freq PRN Reason Stop Dose Admin Acetaminophen 650 mg 02/17/25 18:04 02/18/25 16:25 Acetaminophen 325 Mg Tablet PO 650 mg Q4H PRN Administration Mild Pain (1-3) or Fever Hydrocodone Bitart/Acetaminophen 1 tab 02/17/25 18:04 02/19/25 09:29 Hydrocodone/Acetaminophen (*Crx) 5-325 Mg Tablet PO 1 tab Q4H PRN Administration Pain Rated 4-6 Albuterol 2 puff 02/18/25 15:38 Albuterol Sulfate (*Sp) Aerosol 1 Puff INHALATION Q4-6H PRN Shortness Of Breath Or Wheezing Ferrous Sulfate 325 mg 02/19/25 09:00 02/19/25 09:30 Ferrous Sulfate 325 Mg Tablet PO 325 mg DAILY JOEL Administration Gabapentin 800 mg 02/18/25 17:00 02/19/25 09:31 Gabapentin 400 Mg Capsule PO 800 mg QID JOEL Administration Sodium Chloride 1,000 mls @ 125 mls/hr 02/17/25 18:05 02/19/25 06:01 Normal Saline Iv IV CONT 125 mls/hr .Q8H JOEL Administration Ceftriaxone Sodium 2 gm/ 100 mls @ 200 mls/hr 02/19/25 00:00 02/18/25 23:50 Sodium Chloride IVPB Infused Q24H JOEL Infusion Lactulose 20 gm 02/18/25 17:00 02/19/25 09:31 Lactulose 20 Gm/30 Ml Udc PO 20 gm BID JOEL Administration Levetiracetam 2,000 mg 02/19/25 17:00 Levetiracetam 500 Mg Tablet PO BID JOEL Lorazepam 1 mg 02/19/25 12:08 Lorazepam Inj (*Crx) 2 Mg/Ml Vial IV PUSH Q2HR PRN Seizure Activity Miscellaneous Information 1 each 02/19/25 00:01 Tenofovir Disoproxil Fumarate 300 Mg Tablet Is Nonform; Can Pt Use From Home? XX 03/21/25 00:00 CLARIFY JOEL Non-Formulary Medication 300 mg 02/19/25 09:00 Tenofovir Disoproxil Fumarate PO 03/21/25 08:59 DAILY JOEL Nortriptyline HCl 10 mg 02/18/25 21:00 02/18/25 20:25 Nortriptyline Hcl 10 Mg Capsule PO 10 mg QHS JOEL Administration Ondansetron HCl 4 mg 02/17/25 18:04 02/18/25 20:17 Ondansetron Inj 4 Mg/2 Ml Vial IV PUSH 4 mg Q4H PRN Administration Nausea Pantoprazole Sodium 40 mg 02/20/25 09:00 Pantoprazole 40 Mg Tablet PO DAILY JOEL Spironolactone 25 mg 02/19/25 09:00 02/19/25 09:31 Spironolactone 25 Mg Tablet PO 25 mg QAM JOEL Administration Tamsulosin HCl 0.4 mg 02/19/25 09:00 02/19/25 09:31 Tamsulosin Hcl 0.4 Mg Capsule PO 0.4 mg DAILY JOEL Administration Topiramate 50 mg 02/18/25 15:38 Topiramate 25 Mg Tablet PO Q12H PRN Headache Radiology Results: ITS Impressions Chest X-Ray 02/17/25 13:28 IMPRESSION: 1. Recommend CT chest to better evaluate left upper lobe nodule. Head CT 02/17/25 15:56 IMPRESSION: 1. No acute findings in the limited noncontrast CT head. Mild the left maxillary sinusitis. Chest/Abdomen/Pelvis CT 02/17/25 16:17 IMPRESSION: 1. Severe emphysematous changes of lungs. Bilateral upper lobe noncalcified nodules as mentioned above. Possible pulmonary neoplasm. Further evaluation by PET CT scan is recommended. 2. Mildly contracted left lobe of the liver with nodular outline. Dilated portal vein and large amount of ascites are noted suggestive of portal venous hypertension. Presence of paraesophageal venous varices is also noted in the lower mediastinum. Labs Labs: Laboratory Results - last 24 hr 02/19/25 02/19/25 04:45 10:46 WBC 5.4 RBC 3.45 L Hgb 10.9 L Hct 31.5 L MCV 91.3 MCH 31.6 MCHC 34.6 RDW 15.8 H Plt Count 71 L MPV 11.3 H % Immature Plt Fraction 5.0 Sodium 137 Potassium 3.3 L Chloride 111 H Carbon Dioxide 19 L Anion Gap 7 BUN 17 Creatinine 0.64 L Estim Creat Clear Calc 86 Estimated GFR > 60 Glucose 77 Calcium 8.8 Magnesium 1.6 Total Bilirubin 0.8 AST 39 ALT 26 Alkaline Phosphatase 190 H Total Protein 6.7 Albumin 3.2 L Peritoneal Tot Protein Cancelled Attestation: I personally reviewed all lab results Imaging Attestation: I personally reviewed this imaging study Quality VTE Prophylaxis VTE prophylaxis: mechanical ordered (SCDs) -Patient's previous records reviewed on admission -ER notes reviewed in detail on admission -discussed all findings and current treatment plan with patient/Family/POA -Consultations reviewed for recommendations -Patient's disposition for safe discharge discussed with comp field case manager -radiology imaging, EKG and test results I have personally reviewed and interpreted unless otherwise specified Dictation performed by [employer] direct speech recognition software, therefore nylon machine operator variants and typographical errors may occur. Hospitalist MIPS Advance Care Plan I have confirmed that the patient's Advanced Care Plan is present, code status is documented, or surrogate decision maker is listed in patient medical record.: Yes Medication Reconciliation I have utilized all available resources to obtain, update and review the patients current medications (includes all prescriptions, OTC, herbals, cannabis, and nutritional supplements).: Yes The patient is not eligible for med reconciliation; the patient is in a emergent medical situation where delaying treatment would jeopardize the patients health.: No
[2025-02-19 12:14] LABS: Appearance Peritoneal Fluid Hazy (Clear); Color Peritoneal Fluid Yellow (Colorless); Nucleated Cells Peritoneal Flu 161 /uL (0-500); Source Peritoneal Fluid Peritoneal Fluid
[2025-02-19 12:15] LABS: Eosinophils Peritoneal Fluid 1 %; Lymphocytes Peritoneal Fluid 28 %; Macrophages Peritoneal Fluid 47 %; Mesothelial Cells Peritoneal Fluid 5 %; Monocytes Peritoneal Fluid 12 %; Neutrophils Peritoneal Fluid 7 % (0-25)
[2025-02-19 12:29] LABS: HIV 1/2 Ab P24 Ag Result Negative (Negative)
[2025-02-19 12:47] LABS: Hepatitis B Surface Antigen Positive (Negative)
[2025-02-19] MEDS: ALBUMIN HUMAN 25% 25 GM/100 ML 100 ML IVPB (12:57)
--- NOTE | 2025-02-19 16:15 | P.DS_ITS ---
DS: Admitting Diagnosis Discharge Date 02/19/2025 Admitting Diagnosis Breakthrough seizure/Cirrohsis with ascites/Pulmonary nodule DS: Discharge Diagnosis Discharge Diagnosis (1) Acute encephalopathy: Code(s): G93.40 - Encephalopathy, unspecified Status: Acute (2) Polysubstance abuse: Code(s): F19.10 - Other psychoactive substance abuse, uncomplicated Status: Acute (3) Seizure: Code(s): R56.9 - Unspecified convulsions Status: Acute (4) Pulmonary nodule: Code(s): R91.1 - Solitary pulmonary nodule Status: Acute Assessment and Plan: CT abdomen pelvis showing pulmonary nodules suspicion for pulmonary neoplasm from hepatocellular carcinoma * Dr. Pacheco consulted evaluation appreciate any recommendations (5) Cirrhosis of liver with ascites: Qualifiers: Hepatic cirrhosis type: unspecified hepatic cirrhosis Qualified Code(s): K74.60 - Unspecified cirrhosis of liver; K72.90 - Hepatic failure, unspecified without coma Code(s): K74.60 - Unspecified cirrhosis of liver; K72.90 - Hepatic failure, unspecified without coma Status: Acute (6) Hepatocellular carcinoma: Code(s): C22.0 - Liver cell carcinoma Status: Acute (7) BPH (benign prostatic hyperplasia): Qualifiers: Lower urinary tract symptom presence: unspecified whether lower urinary tract symptoms present Qualified Code(s): N40.0 - Benign prostatic hyperplasia without lower urinary tract symptoms Code(s): N40.0 - Benign prostatic hyperplasia without lower urinary tract symptoms Status: Chronic (8) Malnourished: Qualifiers: Malnutrition type: unspecified type Qualified Code(s): E46 - Unspecified protein-calorie malnutrition Code(s): E46 - Unspecified protein-calorie malnutrition Status: Chronic (9) Fecal impaction of colon: Code(s): K56.41 - Fecal impaction Status: Resolved DS: Summary Hospital Course Reason for hospitalization: Breakthrough seizure/Cirrohsis with ascites/Pulmonary nodule Hospital Course: The patient presented after being found unconscious at home and was presumed to have a breakthrough seizure given known seizure disorder, medication noncompliance, and a witnessed tonic?clonic seizure in the ER. He received IV Ativan and Keppra with no further seizure activity during hospitalization. Initial encephalopathy was felt to be multifactorial, including postictal state, cirrhosis with ascites, and polysubstance use (positive for methamphetamines and cannabinoids). Imaging revealed large-volume ascites and pulmonary nodules concerning for possible malignancy in the setting of known hepatocellular carcinoma. He was empirically treated for possible SBP with IV ceftriaxone and underwent diagnostic and therapeutic paracentesis on 02/19/25 with removal of 1300 mL of fluid; he tolerated the procedure well. Ammonia level was normal. Mental status steadily improved, and by discharge he was alert, oriented, tolerating oral intake, and without further seizures. Fecal impaction resolved with lactulose therapy. Hematology/Oncology was consulted regarding pulmonary nodules, with outpatient follow-up recommended. Patient was transitioned to oral Keppra and was awaiting on consult for pulmonary nodule but requested to leave AMA. Patient was educated on the risks of leaving AMA including . I did send in prescriptions for patient at his time of discharge. Time Spent with Patient Time attestation: Total time spent providing and/or coordinating discharge services: Exam Narrative: Weight 58.7 kg BMI 20.9 Const: Other: Acutely ill-appearing, appears much older than stated age, thin body habitus, severely malnourished HENMT: Other: Mucous membranes are dry Eyes: Other: Positive conjunctival pallor, no scleral icterus, pupils are equal and reactive Neck: Other: No JVD, no thyromegaly Resp: Other: Clear to auscultation bilaterally, no increased work of breathing Cardio: Rate: regular rate Rhythm: regular rhythm Other: Tachycardic, regular rhythm, 2+ bilateral radial pedal pulses GI: Other: Abdomen is distended with evidence of caput medusa, tenderness to light palpation of the abdomen, positive fluid wave : Other: Normal circumcised male Skin: Other: Varices noted across the abdomen, multiple scattered tattoos on the extremities, poor skin turgor Neuro: Speech: normal speech Motor exam (neuro): 5/5 motor strength present throughout Sensory Exam: normal sensation Other: Alert and oriented x 3 Extrem: Other: No clubbing, cyanosis or edema, 5/5 manager company strength bilateral Psych: Appearance: disheveled Speech and movement: Normal speech and movement present Affect: Irritable affect present Thought process: Normal thought process present Insight: Poor insight present (Psych) Judgement: Poor judgement present (Psych) Other: Encephalopathic, poor judgment and insight DS: Data Data Completed and Pending Pending studies at discharge: Pending at discharge 02/18/25 03:51 Cytology [PTH] Routine Labs on day of discharge: Labs from last 24 hours 02/19/25 02/19/25 02/19/25 10:46 04:45 04:45 WBC 5.4 RBC 3.45 L Hgb 10.9 L Hct 31.5 L MCV 91.3 MCH 31.6 MCHC 34.6 RDW 15.8 H Plt Count 71 L MPV 11.3 H % Immature Plt Fraction 5.0 Sodium 137 Potassium 3.3 L Chloride 111 H Carbon Dioxide 19 L Anion Gap 7 BUN 17 Creatinine 0.64 L Estim Creat Clear Calc 86 Estimated GFR > 60 Glucose 77 Calcium 8.8 Magnesium 1.6 Total Bilirubin 0.8 AST 39 ALT 26 Alkaline Phosphatase 190 H Total Protein 6.7 Albumin 3.2 L Fluid Glucose Pending Fluid Total Protein Pending Fluid Albumin Pending Fluid LDH Pending Fluid Amylase Pending Peritoneal Source Peritoneal fluid Peritoneal Color Yellow Peritoneal Appearance Hazy A Peritoneal RBC < 2000 Periton Nuc Cells 161 Periton Neutrophils 7 Periton Lymphocytes 28 Peritoneal Monocytes 12 Peritoneal Eosinophils 1 Periton Mesothelial 5 Periton Macrophages 47 Peritoneal Tot Protein Cancelled Hep Bs Antigen Positive Cancelled Hep Bs Ag Confirmation Cancelled Hepatitis C Ab Screen Negative HIV 1&2 Ab/P24 Ag 4thGn Negative Discharge Plan Discharge Attending physician on discharge: Roberto Hunt Consulting providers: Heather Jamil; Ramona Naqvi; Cathy Gilliland Rafe M.; Francisco Webb Mannachanallur Discharging Clinician: Heather Jamil Patient Disposition: Left Against Medical Advice Patient Instructions: Aspirin (By mouth), Cigarette Smoking and Your Health (GEN), Blood Thinners (GEN) Patient Language: Polish Discharge Medications: New spironolactone 25 mg Tablet 25 mg PO QAM Qty: 30 0RF Continued ondansetron 4 mg tablet,disintegrating 4 mg PO Q6H PRN (Reason: nausea and vomiting) 3 Days Qty: 12 0RF albuterol sulfate 90 mcg/actuation HFA aerosol inhaler 2 puff inhalation Q4-6H PRN (Reason: shortness of breath or wheezing) 30 Days Qty: 8.5 0RF hydrocodone-acetaminophen 5-325 mg tablet 1 tablet PO TID PRN (Reason: Pain, Moderate) tamsulosin 0.4 mg capsule 0.4 mg PO DAILY acetaminophen [Tylenol Extra Strength] 500 mg tablet 1,000 mg PO TID PRN (Reason: pain) Qty: 30 0RF nortriptyline 10 mg capsule 10 mg PO QHS pantoprazole 40 mg tablet,delayed release (DR/EC) 40 mg PO DAILY topiramate 50 mg tablet 50 mg PO Q12H PRN (Reason: headache) Breztri Aerosphere 160-9-4.8 mcg/actuation HFA aerosol inhaler 2 inh inhalation BID ferrous sulfate [Feosol] 325 mg (65 mg iron) tablet 325 mg PO DAILY gabapentin 800 mg Tablet 800 mg PO QID tenofovir disoproxil fumarate 300 mg Tablet 300 mg PO DAILY noxfxyv-amhwzufwsceka-xqlhjesf [Excedrin Extra Strength] 250-250-65 mg tablet 1 tablet PO Q4-6H PRN (Reason: headache) lactulose 20 gram packet 20 g PO BID Qty: 30 0RF levetiracetam [Keppra] 1,000 mg tablet 2,000 mg PO BID Qty: 120 0RF Date of admission: 02/17/25 18:04 Primary Care Provider: JnRoxy Admitting Provider: Roberto Hunt Attending physician on admission: Roberto Hunt Condition: Stable Quality VTE Prophylaxis VTE prophylaxis: mechanical ordered (SCDs) Hospitalist MIPS Heart Failure (Exclusion) Patient has history of Heart Transplant or Left Ventricular Assistive Device?: No IF YES, STOP HERE Heart Failure (Qualifier) Patient has current or prior documentation of LVEF less than or equal to 40%, or mod/servere depressed LVSF?: No IF NO, STOP HERE
--- NOTE | 2025-02-19 21:16 | WPDONCCN ---
Assessment and Plan Assessment and plan (1) Pulmonary nodules: Code(s): R91.8 - Other nonspecific abnormal finding of lung field Status: Acute Plan Hepatocellular carcinoma: Being managed by boring machine operator double end/medical oncologist outpatient Pulmonary nodules: Recommend bx of nodule(s). Pt preferred to pursue outpatient. He would like to be established with [facility] outpatient. He is made aware that the nodules care concerning for HCC mets vs new denovo malignancy. Polysubstance abuse:advised pt cessation Thanks for the consult. Please call with questions. HPI Data of Consult Date/Time: 02/19/25 21:16 Requesting Physician: Marco Hunt MD Primary Care Provider: Roxy Ragsdale, IMPLEMENTATION ANALYST Consult Narrative Narrative: Ronan Baez is a 59 year old male with a past medical history of hepatocellular carcinoma treated with TACE, hepatitis-B, cirrhosis with ascites, COPD, methamphetamine abuse/marijuana use, seizure disorder and medication noncompliance who presented to the ER via EMS after being found unconscious on the garage floor. The patient follows with Neurology and hepatology at [facility]. The patient was presumed to have had a seizure given his prior history of seizures since 2019. He had been hospitalized the 1st week in January due to breakthrough seizure as well. On EMS arrival to the scene the patient had scattered abrasions across both arms. The patient was localizing to pain on arrival to the ER but not following commands. He was intentionally rolling himself around in the bed and was putting his fingers down his throat to make himself vomit. While in the ER he did have a witnessed tonic clonic seizure. He received 2 mg of Ativan and 1 g of Keppra. On exam the patient was noted have a markedly distended abdomen and does have a known history of cirrhosis. With light palpation of patient's abdomen he did moan and grimace trying to move away from exam. He is still having garbled indistinguishable speech but was intermittently following commands. The patient was noted to have inappropriate behavior in the ER in would sit up in urinate in the tray around the IV pole. He also had some episodes of urinary incontinence and would intermittently used the urinal. He did not have any witnessed bowel movements in the ER. He was unable to answer any orientation questions. Initial labs in the ER demonstrated normal white count and hemoglobin with chronically low platelets. Coag panel was unremarkable. Serum bicarb was mildly low an AST and ALT or within normal limits. Although patient had reported abstinence from amphetamines during prior hospitalization with negative drug screen his urine drug screen today was positive for amphetamines. On history, He reported using amphetamines 2 months ago.Work up inpatient showed pulmonary nodules and bx was recommended. He follows up with for HCC management and would like to get outpatient care for pulmonary nodules Review of Systems Review of Systems: All systems reviewed & are unremarkable except as noted in HPI and below (HPI) [facility] Past Medical History Medical History BPH (benign prostatic hyperplasia) Narcotic withdrawal epilepsy Alcohol abuse Most recent use 10/29/2020 Chronic pain syndrome Hx of peptic ulcer as a child GERD (gastroesophageal reflux disease) History of hepatitis B COPD (chronic obstructive pulmonary disease) Cirrhosis Hepatocellular carcinoma radiation treatment Seizure Hepatic encephalopathy Surgical History Surgical History History of tibial fracture requiring surgical repair. History of cholecystectomy Family History Family History Father Hypertension Cerebrovascular accident Myocardial infarct Sibling Hypertension Sibling Hypertension Father Hypertension Cerebrovascular accident Family history of coronary artery disease Sibling Hypertension Social History Social History Social History: Smokes 0.5-1 ppd since 17yo. Lives at home with his and children. He is a full code. The patient had 7 children. He is on disability. He has a distant history of cocaine use. As of his recent hospitalization 01/29/2025 he had not used methamphetamines for approximately 15 years but urine drug screen is now positive for methamphetamines 02/17/2025. He uses marijuana gummies. Code status: Full code Surrogate decision maker: Smoking packs per day: 1 Smoking cigarettes per day: 20.0 Years smoked: 39 Smoking pack-years: 39.00 Smoking status: Current every day smoker Tobacco type: cigarettes Second hand tobacco smoke exposure: Yes Smoking end date: 03/01/13 Additional smoking assessment comments: Currently trying to quit. Alcohol intake: former Drinks per week: 0 Alcohol use details: Alcohol use noted 10/29/2020 with etoh level of 24. Substance use: current Substance use type: marijuana Other substance usage details: hx of cocaine, meth 15 years ago Last use: 15 years ago Lack of Transportation: YES Lack of Food: Never True Current Housing: I Have Housing Concerned About Future Housing: No Difficulty Paying Gas/Electric Bills: YES Difficulty Paying for Meds: YES Currently Unemployed: No Education: High School Diploma/GED Difficulty w/ Childcare or Family Care: No Living arrangements: with family Occupation/Education: other Gender identity (if verbalized by the patient): Male Sexual Orientation (if Verbalized by the Patient): Straight or Heterosexual Spiritual care concerns: No Agree to blood products: Yes Meds Home Medications and Allergies Home Medications ?Medication ?Instructions ?Recorded ?Confirmed ?Type gabapentin 800 mg tablet 800 mg PO QID 02/16/20 02/18/25 History tenofovir disoproxil fumarate 300 300 mg PO DAILY 02/16/20 02/18/25 History mg tablet tamsulosin 0.4 mg capsule 0.4 mg PO DAILY 01/11/21 02/18/25 History hydrocodone 5 mg-acetaminophen 325 1 tablet PO TID PRN Pain, Moderate 08/13/22 02/18/25 History mg tablet albuterol sulfate 90 mcg/actuation 2 puff inhalation Q4-6H PRN 02/22/24 02/18/25 Rx aerosol inhaler shortness of breath or wheezing 30 days #8.5 grams ondansetron 4 mg disintegrating 4 mg PO Q6H PRN nausea and 02/22/24 02/18/25 Rx tablet vomiting 3 days #12 tabs acetaminophen 500 mg tablet 1,000 mg (2 x 500 mg) PO TID PRN 05/07/24 02/18/25 Rx (Tylenol Extra Strength) pain #30 tabs budesonide 160 mcg-glycopyr 9 2 inh inhalation BID 12/09/24 02/18/25 History mcg-formot 4.8 mcg/actuation HFA inhaler (Breztri Aerosphere) ferrous sulfate 325 mg (65 mg 325 mg PO DAILY 12/09/24 02/18/25 History iron) tablet (Feosol) nortriptyline 10 mg capsule 10 mg PO QHS 12/09/24 02/18/25 History pantoprazole 40 mg tablet,delayed 40 mg PO DAILY 12/09/24 02/18/25 History release topiramate 50 mg tablet 50 mg PO Q12H PRN headache 12/09/24 02/18/25 History gvmhgys-ectnqaksewjcf-dthqzgnu 250 1 tablet PO Q4-6H PRN headache 01/29/25 02/18/25 History mg-250 mg-65 mg tablet (Excedrin Extra Strength) lactulose 20 gram oral packet 20 g PO BID #30 ea 02/19/25 Rx levetiracetam 1,000 mg tablet 2,000 mg (2 x 1,000 mg) PO BID 02/19/25 Rx (Keppra) #120 tabs spironolactone 25 mg tablet 25 mg PO QAM #30 tabs 02/19/25 Rx Allergies Allergy/AdvReac Type Severity Reaction Status Date / Time hornet venom Allergy Unknown Unknown Verified 02/18/25 11:39 strawberry Allergy Unknown Unknown Verified 02/18/25 11:39 ciprofloxacin Allergy Unknown Verified 02/18/25 11:39 fentanyl Allergy Unknown Verified 02/18/25 11:39 metronidazole AdvReac Unknown Nausea And Verified 02/18/25 11:39 Vomiting Vital Signs Vital Signs - 24 hr 02/18/25 21:36 02/19/25 00:00 02/19/25 04:00 Temperature 36.9 C Pulse Rate 64 66 63 Respiratory Rate 16 Blood Pressure 156/79 H Pulse Oximetry 100 Oxygen Delivery 02/19/25 05:57 02/19/25 09:28 02/19/25 09:47 Temperature 36.9 C 36.4 C L Pulse Rate 64 80 80 Respiratory Rate 16 18 16 Blood Pressure 135/78 133/78 Pulse Oximetry 94 97 100 Oxygen Delivery Room Air 02/19/25 09:47 02/19/25 12:00 02/19/25 14:38 Temperature 37.1 C Pulse Rate 75 71 87 Respiratory Rate 18 Blood Pressure 137/74 Pulse Oximetry 96 Oxygen Delivery 02/19/25 16:00 Temperature Pulse Rate 98 Respiratory Rate Blood Pressure Pulse Oximetry Oxygen Delivery Exam Psych: Other: Cachectic; AO x 3. No gross focal deficits Results Labs 02/19/25 04:45 02/19/25 04:45 Labs: Short CBC 02/19/25 Range/Units 04:45 WBC 5.4 (4.5-10.0) K/mm3 Hgb 10.9 L (14.0-18.0) g/dL Hct 31.5 L (42.0-52.0) % Plt Count 71 L (150-375) k/mm3 BMP 02/19/25 04:45 Sodium 137 Potassium 3.3 L Chloride 111 H Carbon Dioxide 19 L BUN 17 Creatinine 0.64 L Glucose 77 Calcium 8.8 Liver Function 02/19/25 Range/Units 04:45 Total Bilirubin 0.8 (0.2-1.3) mg/dL AST 39 (17-59) U/L ALT 26 (6-50) U/L Alkaline Phosphatase 190 H (38-126) U/L Albumin 3.2 L (3.5-5.1) g/dL
[2025-02-20 14:08] LABS: Albumin, Body Fluid 0.5 g/dL (Not Estab.); Glucose, Body Fluid 88 mg/dL (.); LD, Body Fluid 32 IU/L (.)
== END 2025-02-19 16:30 | disposition left against medical advice (07) ==
LOC: ANHED 18:08 → ANH3MEDSUR 19:16 → ANH2MED 02-18 10:14
PROVIDERS: Internal Medicine; Nurse Practitioner Family; Admitting Provider Internal Medicine; Emergency Provider Emergency Medicine; Visit Provider Internal Medicine
DX: G93.40 Encephalopathy, unspecified (principal); R41.82 Altered mental status, unspecified; K76.82 Hepatic encephalopathy; F19.10 Other psychoactive substance abuse, uncomplicated; R91.8 Other nonspecific abnormal finding of lung field; K72.90 Hepatic failure, unspecified without coma; C22.0 Liver cell carcinoma; K56.41 Fecal impaction; R10.84 Generalized abdominal pain; N40.0 Benign prostatic hyperplasia without lower urinary tract symptoms; E46 Unspecified protein-calorie malnutrition; Z68.1 Body mass index [BMI] 19.9 or less, adult; K74.60 Unspecified cirrhosis of liver; K21.9 Gastro-esophageal reflux disease without esophagitis; J44.9 Chronic obstructive pulmonary disease, unspecified; G89.4 Chronic pain syndrome; F17.210 Nicotine dependence, cigarettes, uncomplicated; F12.90 Cannabis use, unspecified, uncomplicated; Z79.891 Long term (current) use of opiate analgesic; Z85.05 Personal history of malignant neoplasm of liver; Z86.19 Personal history of other infectious and parasitic diseases; Z53.29 Procedure and treatment not carried out because of patient's decision for other reasons; Z92.3 Personal history of irradiation; Z90.49 Acquired absence of other specified parts of digestive tract
CPT/HCPCS: 36415; 49083; 70450; 71045; 71260; 74177; 80053; 80307; 81001; 82042; 82077; 82140; 82150; 82945; 83605; 83615; 83735; 84100; 84157; 85025; 85027; 85055; 85610; 85730; 86703; 86803; 87040; 87147; 87186; 87205; 87340; 88104; 88108; 88305; 88342; 89051; 93005; 96361; 96365; 96366; 96367; 96375; 96376; 99285; A9270; G0378; G0432; J0696; J1953; J2060; J2405; J2470; J7030; P9047; Q9967